=== PATIENT | female | born 1960 | race Caucasian/White ===

== ENCOUNTER 2020-03-12 16:13 | Inpatient (IN) | payer OTHER, SELFPAY ==
[2020-03-12] VITALS (8 sets, daily range): BP systolic 103–131; BP diastolic 37–76; PULSE 86–111; RESP 16–20; TEMP 36.7–37.3; O2SAT 96–100; BMI 62.1
--- NOTE | 2020-03-12 | CT_ITS ---
EXAMINATION: CT ABDOMEN AND PELVIS WITH CONTRAST CLINICAL INFORMATION: Left pain with black stool CT chest 01/18/[address] abdomen and pelvis 08/30/2015 COMPARISON: None TECHNIQUE: Multidetector volumetric images were obtained from the superior aspect of the liver through the pubic symphysis following administration 85 mL of Omnipaque 350 intravenous contrast. Sagittal and coronal reformatted images were obtained on the technologist's workstation. Oral contrast: No This CT examination was performed using dose optimization techniques as appropriate, variously including the following: *Automated exposure control *Adjustment of mA and/or kV according to patient size (this includes techniques or standardized protocols for targeted exams where dose is matched to indication/reason for exam; i.e. extremities or head) *Use of iterative reconstruction technique DLP: 976 mGy-cm FINDINGS: LUNG BASES: Bibasilar scarring is present. Moderate sized hiatal hernia is present. LIVER, GALLBLADDER, AND BILIARY TREE: The liver is normal in size, shape, and attenuation. No focal hepatic lesion or biliary ductal dilatation is present. At least one rim calcified 2 cm gallstone is present. No evidence of cholecystitis is seen. PANCREAS: Unremarkable. SPLEEN: Unremarkable. ADRENAL GLANDS: Unremarkable. KIDNEYS AND URETERS: The kidneys are normal in size, shape, and attenuation. No hydronephrosis, hydroureter, or calculi seen. A tiny 5 mm hypodensity is seen in the right kidney which probably represents a cyst. No perinephric stranding. BLADDER: Unremarkable. GASTROINTESTINAL TRACT: The small and large bowel are unremarkable. The appendix is none seen with certainty but there is no evidence of appendicitis. ABDOMINAL WALL: No significant hernia is appreciated. Tiny periumbilical hernia containing only fat is present. LYMPH NODES: No retroperitoneal lymphadenopathy. VASCULAR: Mild atherosclerotic changes without aneurysm PELVIC VISCERA: An anteverted uterus is present. An abnormal adnexal mass or free intraperitoneal fluid is not seen. Multiple phleboliths are present in the pelvis OSSEOUS STRUCTURES: Unremarkable. IMPRESSION: A cause for the left back pain is not seen. Incidental note made of probable gallstones and probable tiny right renal cyst.
--- NOTE | 2020-03-12 16:50 | ED.ABDPAIN ---
HPI - Abdominal Pain General Chief Complaint: GI Bleed Stated Complaint: VOMITING BLOOD Time Seen by Provider: 03/12/20 16:38 Source: patient Mode of arrival: wheelchair History of Present Illness HPI narrative: patient states for approximately 5 days has been vomiting diarrhea. Patient states that the dark maroon color. With lower left abdominal pain. No fevers no chills. States has had this several times in the past and has been transfused. Denies chest pain or shortness of breath. patient does admit that she has been weaker recently with dyspnea on exertion. Patient states about 5 days ago was taking a hot shower and may have passed out MD elicited complaint: abdominal pain Location: LUQ Severity: mild Quality: cramping Radiation: LUQ Exacerbating factors: nothing Related Data Home Medications Medication Instructions Recorded Confirmed cholecalciferol (vitamin D3) 1 cap PO BID 03/12/20 03/12/20 [Vitamin D3] docusate sodium 1 cap PO BEDTIME PRN 03/12/20 03/12/20 etanercept [Enbrel SureClick] 1 syringe SUBCUT QWEEK 03/12/20 03/12/20 ferrous sulfate 1 tab PO DAILY 03/12/20 03/12/20 fluoxetine 2 cap PO DAILY 03/12/20 03/12/20 hydroxychloroquine 1 tab PO DAILY 03/12/20 03/12/20 melatonin 1 tab PO BEDTIME 03/12/20 03/12/20 oxycodone 10 mg PO Q4-6H PRN 03/12/20 03/12/20 pantoprazole 1 tab PO BID 03/12/20 03/12/20 sennosides-docusate sodium 2 tab PO DAILY 03/12/20 03/12/20 [Senexon-S] Allergies Allergy/AdvReac Type Severity Reaction Status Date / Time ibuprofen [From MOTRIN] Allergy Unknown ULCERS Verified 03/12/20 19:51 naproxen [From NAPROSYN] Allergy Unknown ULCERS Verified 03/12/20 19:51 Review of Systems Review of Systems Constitutional : No Weight loss, No Fever, No Chills, No Night Sweats, No Fatigue, No Malaise ENT/Mouth : No Hearing loss, No Ear Pain, No Nasal Congestion, No Sinus Pain, No Hoarseness, No sore throat, No Rhinorrhea, No Swallowing Difficulty Eyes: No Eye Pain, No Swelling, No Redness, No Foreign Body, No Discharge, No Vision Changes Cardiovascular : No Chest Pain, No SOB, No Dyspnea on Exertion, No Orthopnea, No Edema, No Palpitations Respiratory : No Cough, No Sputum, No Wheezing, No Smoke Exposure, No Dyspnea Gastrointestinal : Positive Nausea, Positive Vomiting, positive Diarrhea, positive abdominal Pain, No Hematochezia, No Melena Genitourinary : no irregular bleeding, No Dysuria, No Urinary Frequency, No Hematuria, No Urinary Incontinence, No Urgency, No Flank Pain, No Urinary Flow Changes, No Hesitancy Musculoskeletal : No joint pain, No Myalgias, No Joint Swelling Skin : No Skin Lesions, No rash Neuro : No Weakness, No Numbness, No Paresthesias, No Loss of Consciousness, No Dizziness, No Headache Psych : No Anxiety/Panic, No Depression, No SI/HI/AH/VH, No Social Issues, Heme/Lymph: No Bruising, No Bleeding,No Lymphadenopathy Endocrine : No Polyuria, No Polydipsia, No Temperature Intolerance Physical Exam Vital Signs and I&O and Narrative: Vital Signs and I&O: Vital Signs Temp 98.2 F 03/12/20 21:16 Pulse 90 03/12/20 22:16 Resp 16 03/12/20 22:16 BP 103/55 L 03/12/20 22:16 Pulse Ox 100 03/12/20 22:16 Intake & Output 03/12/20 03/12/20 03/13/20 06:59 18:59 06:59 Intake Total 1000 / 1000 Balance 1000 / 1000 Weight 180 kg Intake: Intake, IV Amoun t 1000 / 1000 0.9 % Sodium C hloride 1,000 ml 1000 / 1000 @ 999 mls/hr I VCONT .Q1H1M [facility] Rx#:[id number] Body Mass Index 62.1 Appearance: Alert. Oriented X3. No acute distress. Eyes: Pupils equal, round and reactive to light. ENT: Pharynx normal. Neck: Normal inspection. Neck supple. CVS: Normal heart rate and rhythm. Pulses normal. Respiratory: No respiratory distress. Breath sounds normal. Abdomen: Soft and left lower quadrant tenderness. No rash no ecchymosis. Skin: Skin warm and dry. Normal skin color. Normal skin turgor. Extremities: No lower extremity edema. No lower extremity edema. Neuro: Oriented X 3. No motor deficit. No sensory deficit. Rectal exam: brown stool. Female nurse bedside for evaluation Course Course Hospital Course: I was called the lab for severe anemia. Discussed with patient need for transfusion. Patient does agree to transfusion and has had previous Reevaluation(s) Reevaluation #1: will place IV. CT scan abdomen pelvis laboratory work Time: 20:54 Reevaluation #2: patient resting comfortably will receive units of blood awaiting admission Reevaluation #3: multiple re-evaluations done by me while patient was in the emergency department MDM - Abdominal Pain MDM Narrative Medical decision making narrative: 59-year-old with reported history vomiting blood and black stools. In the emergency department without active bleeding. Severe anemia will need blood transfusion admission possible evaluation by Gastroenterology Differential Diagnosis Differential diagnosis: Likely abdominal pain, acute appendicitis, bowel perforation and diverticulitis Medical Records Attestation: I reviewed the patient's medical records. Lab Data Attestation: I reviewed the patient's lab results. Result diagrams: 03/12/20 17:19 03/12/20 17:18 Labs: Lab Results 03/12/20 03/12/20 03/12/20 Range/Units 17:08 17:18 17:19 WBC 6.7 (4.8-10.8) X10*3/uL RBC 2.28 L (4.20-5.50) X10*6/uL Hgb 4.2 L* (12.0-16.0) g/dl Hct 15.9 L* (37-47) % MCV 69.7 L (80-98) fL MCH 18.4 L (27.0-33.0) pg MCHC 26.4 L (31.0-35.0) g/dl RDW 19.7 H (11.0-16.0) % Plt Count 249 (160-400) X10*3/uL MPV 10.0 (9.4-12.3) fL Immature Gran % (Auto) 0.6 H (0.0-0.4) % Neut % (Auto) 57.1 (45-73) % Lymph % (Auto) 24.5 (20-40) % Lewis % (Auto) 13.7 H (2-11) % Eos % (Auto) 3.7 (0-4) % Baso % (Auto) 0.4 (0-2) % Neut # (Auto) 3.8 (2.0-8.3) X10*3/uL Lymph # (Auto) 1.7 (1.2-4.9) X10*3/uL Lewis # (Auto) 0.9 (0.1-1.2) X10*3/uL Eos # (Auto) 0.3 (0.0-0.4) X10*3/uL Baso # (Auto) 0.0 (0.0-0.2) X10*3/uL Abs Immat Gran (auto) 0.04 H (0.00-0.03) X10*3/uL Absolute Nucleated RBC 0.000 (0.0-0.012) X10*3/uL Nucleated RBC % (auto) 0.0 (0.0-0.2) /100WBC Sodium 135 (135-145) mmol/L Potassium 4.3 (3.3-5.1) mmol/l Chloride 102 (96-108) mmol/L Carbon Dioxide 28 (22-29) mmol/L Anion Gap 9 L (12-20) BUN 15 (9-16) mg/dL Creatinine 0.49 L (0.5-1.4) mg/dL Estim Creat Clear Calc 217.9 Estimated GFR > 60 Random Glucose 109 (60-115) mg/dL Calcium 8.6 (8.4-10.2) mg/dL Total Bilirubin 0.3 (0.0-1.0) mg/dL Direct Bilirubin 0.2 (0.0-0.5) mg/dL AST 19 (5-31) U/L ALT 11 (0-31) U/L Alkaline Phosphatase 106 (39-117) U/L Total Protein 6.6 (6.5-8.0) g/dL Albumin 3.2 L (3.5-5.0) g/dL Lipase 54 (8-78) U/L Stool Collect Date 03/12/20 Stool Occult Blood POS (NEG) Blood Type Antibody Screen Antibody Identification Crossmatch 03/12/20 Range/Units 18:48 WBC (4.8-10.8) X10*3/uL RBC (4.20-5.50) X10*6/uL Hgb (12.0-16.0) g/dl Hct (37-47) % MCV (80-98) fL MCH (27.0-33.0) pg MCHC (31.0-35.0) g/dl RDW (11.0-16.0) % Plt Count (160-400) X10*3/uL MPV (9.4-12.3) fL Immature Gran % (Auto) (0.0-0.4) % Neut % (Auto) (45-73) % Lymph % (Auto) (20-40) % Lewis % (Auto) (2-11) % Eos % (Auto) (0-4) % Baso % (Auto) (0-2) % Neut # (Auto) (2.0-8.3) X10*3/uL Lymph # (Auto) (1.2-4.9) X10*3/uL Lewis # (Auto) (0.1-1.2) X10*3/uL Eos # (Auto) (0.0-0.4) X10*3/uL Baso # (Auto) (0.0-0.2) X10*3/uL Abs Immat Gran (auto) (0.00-0.03) X10*3/uL Absolute Nucleated RBC (0.0-0.012) X10*3/uL Nucleated RBC % (auto) (0.0-0.2) /100WBC Sodium (135-145) mmol/L Potassium (3.3-5.1) mmol/l Chloride (96-108) mmol/L Carbon Dioxide (22-29) mmol/L Anion Gap (12-20) BUN (9-16) mg/dL Creatinine (0.5-1.4) mg/dL Estim Creat Clear Calc Estimated GFR Random Glucose (60-115) mg/dL Calcium (8.4-10.2) mg/dL Total Bilirubin (0.0-1.0) mg/dL Direct Bilirubin (0.0-0.5) mg/dL AST (5-31) U/L ALT (0-31) U/L Alkaline Phosphatase (39-117) U/L Total Protein (6.5-8.0) g/dL Albumin (3.5-5.0) g/dL Lipase (8-78) U/L Stool Collect Date Stool Occult Blood (NEG) Blood Type O Positive Antibody Screen POSITIVE Antibody Identification Anti-K Crossmatch See Detail Critical Care Time Critical Care Time Critical Care Time: Yes Total Critical Care Time: 35 Attestation: patient has severe anemia. I attest to the critical time Discharge Plan Discharge Clinical Impression: Severe anemia, Melena Prescriptions: No Action pantoprazole 40 mg tablet,delayed release (DR/EC) 1 tab PO BID RF: 0 ferrous sulfate 325 mg (65 mg iron) tablet 1 tab PO DAILY RF: 0 docusate sodium 100 mg capsule 1 cap PO BEDTIME PRN (Reason: Constipation) RF: 0 hydroxychloroquine 200 mg tablet 1 tab PO DAILY RF: 0 fluoxetine 20 mg capsule 2 cap PO DAILY RF: 0 Enbrel SureClick 50 mg/mL (1 mL) pen injector 1 syringe subcut QWEEK RF: 0 oxycodone 10 mg tablet 10 mg PO Q4-6H PRN (Reason: Pain, Moderate) RF: 0 melatonin 5 mg tablet 1 tab PO BEDTIME RF: 0 cholecalciferol (vitamin D3) [Vitamin D3] 50 mcg (2,000 unit) capsule 1 cap PO BID RF: 0 sennosides-docusate sodium [Senexon-S] 8.6-50 mg tablet 2 tab PO DAILY RF: 0 PMFSH Past Medical History Attestation statement: The following information was validated with the patient. Source: old records reviewed Medical History Anemia Anxiety Arthritis Depression Hypothyroidism Pancreatitis Ulcer Social History Social History Alcohol intake: never Smoking Status: Never smoker Smoked in Last 30 Days: No Use of substances other than those prescribed or required for medical reasons: No Advance Directives: No Advance Directives Information Provided: No
[2020-03-12] MEDS: Pantoprazole Sodium 40 MG/10 ML VIAL IVPUSH (17:26)
[2020-03-12] MEDS: 0.9 % Sodium Chloride 1,000 ML 999 ML IVCONT (17:26)
[2020-03-12] MEDS: ondansetron HCL 4 MG/2 ML VIAL IVPUSH (17:26)
[2020-03-12 17:29] LABS: MANUAL DIFF FLAG NO
[2020-03-12 17:33] LABS: OBS1 POS (NEG)
[2020-03-12 17:34] LABS: OBS Int Ctl Valid YES
[2020-03-12 17:43] LABS: Basophils Percent Auto 0.4 % (0-2); Eosinophils Absolute Auto 0.3 X10*3/uL (0.0-0.4); Eosinophils Percent Auto 3.7 % (0-4); Imm Gran Abs Auto 0.04 X10*3/uL (0.00-0.03); Imm Gran Pct Auto 0.6 % (0.0-0.4); Lymphocytes Absolute Auto 1.7 X10*3/uL (1.2-4.9); Lymphocytes Percent Auto 24.5 % (20-40); Mean Corpuscular HGB Conc 26.4 g/dl (31.0-35.0); Mean Corpuscular Hemoglobin 18.4 pg (27.0-33.0); Mean Corpuscular Volume 69.7 fL (80-98); Monocytes Absolute Auto 0.9 X10*3/uL (0.1-1.2); Monocytes Percent Auto 13.7 % (2-11); Neutrophils Absolute Auto 3.8 X10*3/uL (2.0-8.3); Neutrophils Percent Auto 57.1 % (45-73); Platelet Count 249 X10*3/uL (160-400); Red Blood Count 2.28 X10*6/uL (4.20-5.50); Red Cell Distribution Width 19.7 % (11.0-16.0); White Blood Count 6.7 X10*3/uL (4.8-10.8)
[2020-03-12 17:51] LABS: Hemoglobin 4.2 g/dl (12.0-16.0)
[2020-03-12 17:52] LABS: Hematocrit 15.9 % (37-47)
[2020-03-12 18:10] LABS: Alanine Aminotransferase 11 U/L (0-31); Albumin Level 3.2 g/dL (3.5-5.0); Alkaline Phosphatase 106 U/L (39-117); Anion Gap 9 (12-20); Aspartate Amino Transferase 19 U/L (5-31); Bilirubin Direct 0.2 mg/dL (0.0-0.5); Bilirubin Total 0.3 mg/dL (0.0-1.0); Blood Urea Nitrogen 15 mg/dL (9-16); Calcium 8.6 mg/dL (8.4-10.2); Carbon Dioxide 28 mmol/L (22-29); Chloride 102 mmol/L (96-108); Creatinine Clr Calc Pharmacy 217.9; Estimated Glomerular Filt Rate > 60; Glucose Random 109 mg/dL (60-115); Lipase 54 U/L (8-78); Potassium 4.3 mmol/l (3.3-5.1); Sodium 135 mmol/L (135-145); Total Protein 6.6 g/dL (6.5-8.0)
--- NOTE | 2020-03-12 18:56 | PC.NURSE ---
REPORT TAKEN FROM [facility]. FIRST CONTACT WITH PT. RESTING IN BED SKIN PALE WARM AND DRY, RESPIRATIONS EVEN UNLABORED. TYPE AND SCREEN COMPLETED, AWAITING BLOOD TRANSFUSION, AWARE OF PLAN OF CARE.
[2020-03-12] MEDS: iohexoL 350 MG/ML 100 ML INFUS..BTL IV (19:26)
--- NOTE | 2020-03-12 20:38 | PC.NURSE ---
MEDICATIONS RECONCILED, PT AWAITING BLOOD TRANSFUSION.RESTING IN BED ON PHONE WITH FAMILY MEMBER, OFFERS NO COMPLAINTS AT THIS TIME. VSS. NO CHANGE IN PHYSICAL ASSESSMENT. REQUESTING FOOD. NOTIFIED.
--- NOTE | 2020-03-12 21:16 | PC.NURSE ---
BLOOD PRODUCTS VERIFIED WITH SUSI MO RN AND KARLA May RN BUT UNABLE TO DOCUMENT APPROPRIATELY IN TAR DUE TO TECHNICAL ISSUES. CONSENT IN CHART,VSS, LSCTA UPON INITIATION OF TRANSFUSION.
--- NOTE | 2020-03-12 21:31 | PC.NURSE ---
NO S/S TRANSFUSION REACTION. VSS. LSCTA. PT COMPLAINING OF PAIN TO RIGHT ELBOW. PILLOW PROVIDED AND ARM REPOSITIONED. IV SITE ASSESSED FOR INFILTRATION. FLUSHING WITHOUT DIFFICULTY, SURROUNDING SKIN WNL WITH EXCEPTION OF TENDER TO INSERTION SITE.
--- NOTE | 2020-03-12 21:35 | PC.NURSE ---
PT AGAIN REPORTING RIGHT ELBOW PAIN. IV ACCESS ASSESSED BY THIS RN WELL 2 OTHERS AND MD AND FOUND TO BE WNL, FLUSHING WITHOUT DIFFICULTY. PT REPORTS FIBROMYALGIA AND SEVERE RA. MD BLACK AWARE.
--- NOTE | 2020-03-12 22:15 | PC.NURSE ---
BLOOD TRANSFUSION CONTINUES TO TRANSFUSE WITHOUT DIFFICULTY OR S/S TRANSFUSION REACTION. VSS. LSCTA. HOSPITALIST AT BEDSIDE FOR ADMISSION.
--- NOTE | 2020-03-12 22:26 | PC.NURSE ---
PT REPORTING PAIN TO RIGHT ELBOW AGAIN- REASSESSED IV ACCESS WELL ASSESSED BY 2 OTHER RNS. FOUND TO BE WNL. PT STATES SHE HAS CHRONIC FIBROMYALGIA AND SEVERE RA. MD BLACK AWARE.
--- NOTE | 2020-03-12 22:28 | PC.NURSE ---
BLOOD TRANSFUSION CONTINUES- IV ACCESS PATENT SURROUNGING TISSUE WNL.
--- NOTE | 2020-03-12 22:38 | PM.IMHP ---
History of Present Illness Date of Service: 03/12/20 Chief Complaint: Dizziness 59 y/o female with PMHx of Asthma, insomnia, constipation, Hypothyroidism, RA, Depression, NSTEMI and GI bleed/Anemia who presented from home due to Dizziness. Per history provided by the patient for the past 1 week has been having dizziness on and off which has been associated with one episode of pre-syncope last saturday and black stools which has been present for several months now. Patient denies any chest pain, SOB, nausea, vomiting or diarrhea. Patient reports last EGD/Colonoscopy was done 5 years ago and told it was normal . On presentation to the ED patient is found to have a hgb of 4.2, Patient gives no complaints currently. ROS as above otherwise negative. Physical exam unremarkable. PMHX: Asthma, insomnia, constipation, Hypothyroidism, RA, Depression, NSTEMI and GI bleed/Anemia PSx: none Toxic habits: No hx of alcohol abuse, smoking or IVDA Review of Systems Review of Systems: Yes all other systems are reviewed and are negative Neurologic: Comments: pre syncope, dizziness PMFSH Medical History Anemia Anxiety Arthritis Depression Hypothyroidism Pancreatitis Ulcer Cognitive capacity: AAOx3 Functional capacity: independent ambulation Family history: reviewed and not pertinent Social History Alcohol intake: never Smoking Status: Never smoker Smoked in Last 30 Days: No Use of substances other than those prescribed or required for medical reasons: No Advance Directives: No Advance Directives Information Provided: No Meds Allergies Allergy/AdvReac Type Severity Reaction Status Date / Time ibuprofen [From MOTRIN] Allergy Unknown ULCERS Verified 03/12/20 19:51 naproxen [From NAPROSYN] Allergy Unknown ULCERS Verified 03/12/20 19:51 Home Medications Medication Instructions Recorded Confirmed Type cholecalciferol (vitamin D3) 1 cap PO BID 03/12/20 03/12/20 History [Vitamin D3] docusate sodium 1 cap PO BEDTIME PRN 03/12/20 03/12/20 History etanercept [Enbrel SureClick] 1 syringe SUBCUT QWEEK 03/12/20 03/12/20 History ferrous sulfate 1 tab PO DAILY 03/12/20 03/12/20 History fluoxetine 2 cap PO DAILY 03/12/20 03/12/20 History hydroxychloroquine 1 tab PO DAILY 03/12/20 03/12/20 History melatonin 1 tab PO BEDTIME 03/12/20 03/12/20 History oxycodone 10 mg PO Q4-6H PRN 03/12/20 03/12/20 History pantoprazole 1 tab PO BID 03/12/20 03/12/20 History sennosides-docusate sodium 2 tab PO DAILY 03/12/20 03/12/20 History [Senexon-S] Physical Exam Vital Signs and Narrative: Vital Signs: Last Vital Signs Temp 98.2 F 03/12/20 21:16 Pulse 90 03/12/20 22:16 Resp 16 03/12/20 22:16 BP 103/55 L 03/12/20 22:16 Pulse Ox 100 03/12/20 22:16 Body Mass Index 62.1 Results Labs Labs: Laboratory Tests 03/12/20 03/12/20 03/12/20 17:08 17:18 17:19 WBC 6.7 RBC 2.28 L Hgb 4.2 L* Hct 15.9 L* MCV 69.7 L MCH 18.4 L MCHC 26.4 L RDW 19.7 H Plt Count 249 MPV 10.0 Immature Gran % (Auto) 0.6 H Neut % (Auto) 57.1 Lymph % (Auto) 24.5 [place] % (Auto) 13.7 H Eos % (Auto) 3.7 Baso % (Auto) 0.4 Neut # (Auto) 3.8 Lymph # (Auto) 1.7 [place] # (Auto) 0.9 Eos # (Auto) 0.3 Baso # (Auto) 0.0 Abs Immat Gran (auto) 0.04 H Absolute Nucleated RBC 0.000 Nucleated RBC % (auto) 0.0 Sodium 135 Potassium 4.3 Chloride 102 Carbon Dioxide 28 Anion Gap 9 L BUN 15 Creatinine 0.49 L Estim Creat Clear Calc 217.9 Estimated GFR > 60 Random Glucose 109 Calcium 8.6 Total Bilirubin 0.3 Direct Bilirubin 0.2 AST 19 ALT 11 Alkaline Phosphatase 106 Total Protein 6.6 Albumin 3.2 L Lipase 54 Stool Collect Date 03/12/20 Stool Occult Blood POS Blood Type Antibody Screen Antibody Identification Crossmatch 03/12/20 18:48 WBC RBC Hgb Hct MCV MCH MCHC RDW Plt Count MPV Immature Gran % (Auto) Neut % (Auto) Lymph % (Auto) [place] % (Auto) Eos % (Auto) Baso % (Auto) Neut # (Auto) Lymph # (Auto) [place] # (Auto) Eos # (Auto) Baso # (Auto) Abs Immat Gran (auto) Absolute Nucleated RBC Nucleated RBC % (auto) Sodium Potassium Chloride Carbon Dioxide Anion Gap BUN Creatinine Estim Creat Clear Calc Estimated GFR Random Glucose Calcium Total Bilirubin Direct Bilirubin AST ALT Alkaline Phosphatase Total Protein Albumin Lipase Stool Collect Date Stool Occult Blood Blood Type O Positive Antibody Screen POSITIVE Antibody Identification Anti-K Crossmatch See Detail Assessment and Plan (1) Severe anemia: Status: Acute Hgb of 4.2 FBOT pending type screen and 3 units of PRBC ordered per ED. First unit running at present Follow up repeat CBC once transfusion is finished IMC for now on cardiac tech for close monitoring GI consult in the am for possible EGD/Colonoscopy
--- NOTE | 2020-03-12 22:52 | PC.NURSE ---
BLOOD TRANSFUSION COMPLETED. VSS. NO TRANSFUSION REACTION NOTED.
--- NOTE | 2020-03-12 23:35 | PC.NURSE ---
RN to RN with [facility] on med surg. Pt able to be transfered.
[2020-03-13] VITALS (21 sets, daily range): BP systolic 113–146; BP diastolic 60–87; PULSE 65–110; RESP 16–28; TEMP 36.3–37.1; O2SAT 91–100
[2020-03-13] MEDS: 0.9 % Sodium Chloride Flush 3 ML SYRINGE 2 ML IVFLUSH ×3 (00:57→19:57)
[2020-03-13] MEDS: Omeprazole 20 MG CAPSULE.DR PO (05:52)
[2020-03-13] MEDS: Cholecalciferol (Vitamin D3) 25 MCG TABLET 50 MCG PO ×2 (08:06→21:34)
[2020-03-13] MEDS: FLUoxetine HCl 20 MG CAPSULE 40 MG PO (08:06)
[2020-03-13] MEDS: Hydroxychloroquine Sulfate 200 MG TABLET PO (08:06)
[2020-03-13 08:20] LABS: MANUAL DIFF FLAG NO
[2020-03-13 08:36] LABS: Basophils Percent Auto 0.4 % (0-2); Eosinophils Absolute Auto 0.3 X10*3/uL (0.0-0.4); Eosinophils Percent Auto 3.8 % (0-4); Hematocrit 22.6 % (37-47); Imm Gran Abs Auto 0.03 X10*3/uL (0.00-0.03); Imm Gran Pct Auto 0.4 % (0.0-0.4); Lymphocytes Absolute Auto 0.8 X10*3/uL (1.2-4.9); Lymphocytes Percent Auto 10.7 % (20-40); Mean Corpuscular HGB Conc 29.2 g/dl (31.0-35.0); Mean Corpuscular Hemoglobin 22.4 pg (27.0-33.0); Mean Corpuscular Volume 76.6 fL (80-98); Mean Platelet Volume 9.8 fL (9.4-12.3); Monocytes Percent Auto 13.6 % (2-11); Neutrophils Absolute Auto 5.2 X10*3/uL (2.0-8.3); Neutrophils Percent Auto 71.1 % (45-73); Platelet Count 194 X10*3/uL (160-400); Red Blood Count 2.95 X10*6/uL (4.20-5.50); Red Cell Distribution Width 21.3 % (11.0-16.0); White Blood Count 7.4 X10*3/uL (4.8-10.8)
[2020-03-13 08:49] LABS: Hemoglobin 6.6 g/dl (12.0-16.0)
[2020-03-13 09:04] LABS: Blood Urea Nitrogen 13 mg/dL (9-16); Creatinine Clr Calc Pharmacy 227.1; Estimated Glomerular Filt Rate > 60; Glucose Random 112 mg/dL (60-115)
[2020-03-13 09:18] LABS: Thyroid Stimulating Hormone < 0.01 mIU/mL (0.32-4.0)
[2020-03-13 09:19] LABS: Anion Gap 12 (12-20); Calcium 7.9 mg/dL (8.4-10.2); Carbon Dioxide 25 mmol/L (22-29); Chloride 105 mmol/L (96-108); Potassium 4.2 mmol/l (3.3-5.1); Sodium 138 mmol/L (135-145)
[2020-03-13] MEDS: Pantoprazole Sodium 40 MG/10 ML VIAL IVPUSH (09:58)
--- NOTE | 2020-03-13 10:22 | HO.PM.IMPN ---
Subjective Subjective Date of Service: 03/13/20 Interval History: Feeling anxious Cardiovascular Cardiovascular: Reports no additional cardiovascular complaints Respiratory Respiratory: Reports no additional respiratory complaints Physical Exam Vital Signs and I&O and Narrative: Vital Signs and I&O: Vital Signs Temp 98.2 F 03/13/20 10:07 Pulse 88 03/13/20 10:07 Resp 20 03/13/20 10:07 BP 133/66 03/13/20 10:07 Pulse Ox 97 03/13/20 08:00 Intake & Output 03/12/20 03/13/20 03/13/20 18:59 06:59 18:59 Intake Total 1000 / 2050 1050 / 2050 0 / 0 Output Total 600 / 600 200 / 200 Balance 1000 / 1450 450 / 1450 -200 / -200 Urine Output (Aver age ml/kg/hr) 0.28 0.09 Weight 180 kg Intake: Intake (Blood Pr oduct) Amount 1050 / 1050 0 / 0 Red Blood Cell s (E0382) Unit 350 / 350 [id number] Red Blood Cell s (E0382) Unit 350 / 350 [id number] Red Blood Cell s (E0382) Unit 350 / 350 [id number] Red Blood Cell s (E0382) Unit 0 / 0 [id number] Intake, IV Amoun t 1000 / 1000 0.9 % Sodium C hloride 1,000 ml 1000 / 1000 @ 999 mls/hr I VCONT .Q1H1M [facility] Rx#:[id number] Output: Output, Urine Am ount 600 / 600 200 / 200 Other: NPO Yes Stool Bedpan Body Mass Index 62.1 Const: General: cooperative and no acute distress Orientation/consciousness: oriented to person, oriented to place and oriented to time Resp: Auscultation: clear to auscultation bilaterally Cardio: Rhythm: abnormal rhythm ( rapid) GI: Palpation (GI): nontender Neuro: General: oriented to person, oriented to place and oriented to time Psych: Mental Status: mental status grossly normal Objective Data Current Medications Generic Name Dose Route Start Last Admin Trade Name Freq PRN Reason Stop Dose Admin Docusate Sodium 100 mg 03/12/20 23:57 Docusate Sodium 100 Mg Capsule PO BEDTIME PRN Constipation Fluoxetine HCl 40 mg 03/13/20 09:00 03/13/20 08:06 Fluoxetine Hcl 20 Mg Capsule PO 40 mg DAILY HAILE Administration Hydroxychloroquine Sulfate 200 mg 03/13/20 09:00 03/13/20 08:06 Hydroxychloroquine Sulfate 200 Mg Tablet PO 200 mg DAILY HAILE Administration Pantoprazole Sodium 40 mg 03/13/20 08:07 03/13/20 09:58 Pantoprazole Sodium 40 Mg/10 Ml Vial IVPUSH 40 mg BID@0630,1630 HAILE Administration Senna/Docusate Sodium 2 tab 03/13/20 09:00 03/13/20 08:07 Sennosides/Docusate Sodium Tablet PO Not Given DAILY HAILE Sodium Chloride 2 ml 03/13/20 00:00 03/13/20 08:06 0.9 % Sodium Chloride Flush 3 Ml Syringe IVFLUSH 2 ml QSHIFT HAILE Administration Vitamin D 50 mcg 03/13/20 09:00 03/13/20 08:06 Cholecalciferol (Vitamin D3) 25 Mcg Tablet PO 50 mcg BID HAILE Administration Labs CBC & Chem 7: 03/13/20 07:57 03/13/20 07:57 Labs: Laboratory Results - last 24 hr 03/12/20 03/12/20 03/12/20 17:08 17:18 17:19 MCV 69.7 L MCH 18.4 L MCHC 26.4 L RDW 19.7 H Plt Count 249 MPV 10.0 Immature Gran % (Auto) 0.6 H Neut % (Auto) 57.1 Lymph % (Auto) 24.5 [place] % (Auto) 13.7 H Eos % (Auto) 3.7 Baso % (Auto) 0.4 Neut # (Auto) 3.8 Lymph # (Auto) 1.7 [place] # (Auto) 0.9 Eos # (Auto) 0.3 Baso # (Auto) 0.0 Abs Immat Gran (auto) 0.04 H Absolute Nucleated RBC 0.000 Nucleated RBC % (auto) 0.0 Anion Gap 9 L Estim Creat Clear Calc 217.9 Estimated GFR > 60 Random Glucose 109 Calcium 8.6 Total Bilirubin 0.3 Direct Bilirubin 0.2 AST 19 ALT 11 Alkaline Phosphatase 106 Total Protein 6.6 Albumin 3.2 L Lipase 54 TSH Stool Collect Date 03/12/20 Stool Occult Blood POS Blood Type Antibody Screen Antibody Identification Crossmatch 03/12/20 03/13/2020 18:48 07:57 07:57 MCV 76.6 L D MCH 22.4 L MCHC 29.2 L RDW 21.3 H Plt Count 194 MPV 9.8 Immature Gran % (Auto) 0.4 Neut % (Auto) 71.1 Lymph % (Auto) 10.7 L [place] % (Auto) 13.6 H Eos % (Auto) 3.8 Baso % (Auto) 0.4 Neut # (Auto) 5.2 Lymph # (Auto) 0.8 L [place] # (Auto) 1.0 Eos # (Auto) 0.3 Baso # (Auto) 0.0 Abs Immat Gran (auto) 0.03 Absolute Nucleated RBC 0.000 Nucleated RBC % (auto) 0.0 Anion Gap 12 Estim Creat Clear Calc 227.1 Estimated GFR > 60 Random Glucose 112 Calcium 7.9 L Total Bilirubin Direct Bilirubin AST ALT Alkaline Phosphatase Total Protein Albumin Lipase TSH < 0.01 L Stool Collect Date Stool Occult Blood Blood Type O Positive Antibody Screen POSITIVE Antibody Identification Anti-K Crossmatch See Detail Assessment and Plan (1) Acute blood loss anemia: Status: Acute (2) Thyroiditis: Status: Acute (3) Rheumatoid arthritis: Status: Acute Assessment and Plan: 59-year-old female presented with hematemesis, melena, found to have severe anemia with hemoglobin of 4.2 acute blood loss anemia IV Protonix 40 mg b.i.d. status post 3 units PRBC, hemoglobin improved from 4.2-6.6, will transfuse 1 more unit. Follow-up GI, plan for EGD later today monitor CBC thyroiditis sinus tachycardia, patient reports weight loss, patient did not show up for her endocrinology appointment 2 months ago, plan to follow up outpatient. Once no longer bleeding will start on beta-sidra rheumatoid arthritis Plaquenil
--- NOTE | 2020-03-13 10:31 | PM.GICN ---
History of Present Illness Data of Consult Service Date: 03/13/20 Requesting physician: Josr Fuentes Primary Care Provider: Jenae Khan MD [facility] Reason for consult: Upper GI bleed 59-year-old [place]-speaking female with hypertension, rheumatoid arthritis, thyroiditis, obesity and noncompliance to medical follow-up. Patient was seen at [facility] ED yesterday with history of hematemesis since 03/09/20. Patient was admitted and started on IV proton a 40 mg twice daily. She was transfused 3 units of packed red blood cells overnight with improvement in hemoglobin from 4.6-6.6. (H&H was 8 and 29% on 01/20/20). She is being transfused 4th unit of packed RBCs at present. Nursing staff reports that she has not had any nausea, vomiting, hematemesis or melena overnight. Per patient's sister - pt has required blood transfusions for anemia x 4 over the past few yrs. IMAGING STUDIES: as noted below ENDOSCOPIC STUDIES: 2016 EGD was performed by Dr Royal for UGIB and showed esophageal candidiasis and non-bleeding gastric erosions attributed to NSAID use. Pt reports having a colonoscopy at age 54 yrs. Patient complains of epigastric pain for the past week followed by hematemesis consisting of coffee ground emesis since 4 days. She notes black stools for the past several months - likely related to use of oral iron. She reports having dizziness on and off which has been associated with one episode of pre-syncope last saturday and black stools which has been present for several months. She complains of decreased appetite with weight loss of 15 lb over the past 6-8 weeks. Patient denies major cardiac or pulmonary problems, She admits to a history of sleep apnea and is not on CPAP at present. Denies problems with anesthesia in the past. Denies being on chronic anticoagulation. Patient denies known family history of colon polyps, colon cancer or other GI malignancies. PAST EGD/COLONOSCOPY: as above Review of Systems Constitutional: Constitutional: Reports fatigue, Denies fever(s) and Reports weight loss Eyes: Eyes: Denies eye discharge and Denies irritation Cardiovascular: Cardiovascular: Reports Epigastric Pain and Reports lightheadedness Respiratory: Respiratory: Reports cough (Intermittent dry cough) Gastrointestinal: Gastrointestinal: Reports abdominal pain, Reports melena, Reports coffee ground emesis and Reports constipation Genitourinary: Genitourinary: Reports no additional female genitourinary complaints Musculoskeletal: Musculoskeletal: Reports myalgias and Reports arthralgias Psychiatric: Psychiatric: Reports anxiety and Reports depression Endocrine: Endocrine: Reports fatigue PMF Past Medical History Medical History Depression Hypertension Hypothyroidism Obesity RABIA (obstructive sleep apnea) Thyroiditis Ulcer Functional capacity: independent ambulation Family History Family History (Updated 03/13/20 @ 13:28 by Dae Che MD) Other Cirrhosis Pertinent family history: Patient's Mom had cirrhosis and because of [place] in [place]. 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 [place] Meds Allergies Allergy/AdvReac Type Severity Reaction Status Date / Time ibuprofen [From MOTRIN] Allergy Unknown ULCERS Verified 03/12/20 19:51 naproxen [From NAPROSYN] Allergy Unknown ULCERS Verified 03/12/20 19:51 Home Medications Medication Instructions Recorded Confirmed Type Enbrel SureClick 1 syringe SUBCUT QWEEK 03/12/20 03/12/20 History cholecalciferol (vitamin D3) 1 cap PO BID 03/12/20 03/12/20 History [Vitamin D3] docusate sodium 1 cap PO BEDTIME PRN 03/12/20 03/12/20 History fluoxetine 2 cap PO DAILY 03/12/20 03/12/20 History hydroxychloroquine 1 tab PO DAILY 03/12/20 03/12/20 History melatonin 1 tab PO BEDTIME 03/12/20 03/12/20 History oxycodone 10 mg PO Q4-6H PRN 03/12/20 03/12/20 History pantoprazole 1 tab PO BID 03/12/20 03/12/20 History sennosides-docusate sodium 2 tab PO DAILY 03/12/20 03/12/20 History [Senexon-S] Physical Exam Vital Signs and I&O and Narrative: Vital Signs and I&O: Vital Signs Temp 98 F 03/13/20 10:22 Pulse 90 03/13/20 10:22 Resp 20 03/13/20 10:22 BP 117/65 03/13/20 10:22 Pulse Ox 97 03/13/20 08:00 Intake & Output 03/12/20 03/13/20 03/13/20 18:59 06:59 18:59 Intake Total 1000 / 2050 1050 / 2050 0 / 0 Output Total 600 / 600 200 / 200 Balance 1000 / 1450 450 / 1450 -200 / -200 Urine Output (Aver age ml/kg/hr) 0.28 0.09 Weight 396 lb 13.313 oz Intake: Intake (Blood Pr oduct) Amount 1050 / 1050 0 / 0 Red Blood Cell s (E0382) Unit 350 / 350 [id number] Red Blood Cell s (E0382) Unit 350 / 350 [id number] Red Blood Cell s (E0382) Unit 350 / 350 [id number] Red Blood Cell s (E0382) Unit 0 / 0 [id number] Intake, IV Amoun t 1000 / 1000 0.9 % Sodium C hloride 1,000 ml 1000 / 1000 @ 999 mls/hr I VCONT .Q1H1M [facility] Rx#:[id number] Output: Output, Urine Am ount 600 / 600 200 / 200 Other: NPO Yes Stool Bedpan Body Mass Index 62.1 Const: General: tired appearing Nutritional Appearance: obese Orientation/consciousness: patient oriented x3 Limitations: language barrier ([place] speaking and understands some Danish) Eyes: General: appearance normal, both eyes and all related structures Pupils: Equal, round and reactive pupils present Neck: Neck: Yes normal visual inspection Chest: Chest palpation & inspection: normal inspection of the chest Resp: Effort & Inspection: normal respiratory effort Auscultation: clear to auscultation bilaterally Cardio: Rate: regular rate Rhythm: regular rhythm Heart sounds: S1 normal heart sound present, S2 normal heart sound present and no murmurs GI: Inspection: Yes normal to inspection Palpation (GI): Soft to palpation, Tenderness to palpation present (GI) in the epigastrum and No hepatosplenomegaly present Auscultation: normal bowel sounds Skin: General skin exam: no rashes or lesions noted Neuro: General: patient oriented x3 Cranial nerves: Yes Equal, round and reactive pupils present Extrem: Right lower extremity: no cyanosis and no edema Left lower extremity: no cyanosis and no edema Psych: Affect: Labile affect present and Anxious affect present Attitude: cooperative Results Labs CBC & Chem 7: 03/20/20 04:56 03/21/20 05:59 Labs: Short CBC 03/12/20 03/13/20 Range/Units 17:19 07:57 WBC 6.7 7.4 (4.8-10.8) X10*3/uL Hgb 4.2 L* 6.6 L* D (12.0-16.0) g/dl Hct 15.9 L* 22.6 L D (37-47) % Plt Count 249 194 (160-400) X10*3/uL BMP 03/12/20 03/13/20 17:18 07:57 Sodium 135 138 Potassium 4.3 4.2 Chloride 102 105 Carbon Dioxide 28 25 BUN 15 13 Creatinine 0.49 L 0.47 L Calcium 8.6 7.9 L Liver Function 03/12/20 Range/Units 17:18 Total Bilirubin 0.3 (0.0-1.0) mg/dL Direct Bilirubin 0.2 (0.0-0.5) mg/dL AST 19 (5-31) U/L ALT 11 (0-31) U/L Alkaline Phosphatase 106 (39-117) U/L Albumin 3.2 L (3.5-5.0) g/dL Assessment and Plan (1) Acute blood loss anemia: Status: Resolved (2) Melena: Status: Resolved 59-year-old [place]-speaking female with hypertension, rheumatoid arthritis, thyroiditis, obesity and noncompliance to medical follow-up admitted with the hematemesis and melena with severe anemia and a pre-syncopal episode last night. She most likely has upper GI bleed related to peptic ulcer disease, erosive esophagitis or Priyanka-Mancini tear. Patient has history of upper GI bleeding in 2016 and was detected to have gastric erosions on EGD. RECCOMENDATIONS: 1. Continue IV PPI. 2. Check Vitamin B12 and iron studies. 3. Proceed with upper endoscopy today for further evaluation. Procedure and potential complications including bleeding, perforation, drug reaction, aspiration was discussed with the patient with the help of a educational sign language interpreter. Patient is agreeable to having an EGD done today.
--- NOTE | 2020-03-13 11:37 | HO.ANESPROP2 ---
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 [place] Allergies Allergy/AdvReac Type Severity Reaction Status Date / Time ibuprofen [From MOTRIN] Allergy Unknown ULCERS Verified 03/12/20 19:51 naproxen [From NAPROSYN] Allergy Unknown ULCERS Verified 03/12/20 19:51 Home Medications Medication Instructions Recorded Confirmed Type cholecalciferol (vitamin D3) 1 cap PO BID 03/12/20 03/12/20 History [Vitamin D3] docusate sodium 1 cap PO BEDTIME PRN 03/12/20 03/12/20 History etanercept [Enbrel SureClick] 1 syringe SUBCUT QWEEK 03/12/20 03/12/20 History ferrous sulfate 1 tab PO DAILY 03/12/20 03/12/20 History fluoxetine 2 cap PO DAILY 03/12/20 03/12/20 History hydroxychloroquine 1 tab PO DAILY 03/12/20 03/12/20 History melatonin 1 tab PO BEDTIME 03/12/20 03/12/20 History oxycodone 10 mg PO Q4-6H PRN 03/12/20 03/12/20 History pantoprazole 1 tab PO BID 03/12/20 03/12/20 History sennosides-docusate sodium 2 tab PO DAILY 03/12/20 03/12/20 History [Senexon-S] Exam Exam Date and Time: March 13, 2020 1137 Height,Weight and Vital Signs: Height 5 ft 7 in Weight 180 kg Last Vital Signs Temp 98 F 03/13/20 10:22 Pulse 90 03/13/20 10:22 Resp 20 03/13/20 10:22 BP 117/65 03/13/20 10:22 Pulse Ox 97 03/13/20 08:00 Pertinent Lab Results Pertinent Lab Results: Laboratory Tests 03/12/20 03/12/20 03/12/20 17:08 17:18 17:19 WBC 6.7 RBC 2.28 L Hgb 4.2 L* Hct 15.9 L* MCV 69.7 L MCH 18.4 L MCHC 26.4 L RDW 19.7 H Plt Count 249 MPV 10.0 Immature Gran % (Auto) 0.6 H Neut % (Auto) 57.1 Lymph % (Auto) 24.5 [place] % (Auto) 13.7 H Eos % (Auto) 3.7 Baso % (Auto) 0.4 Neut # (Auto) 3.8 Lymph # (Auto) 1.7 [place] # (Auto) 0.9 Eos # (Auto) 0.3 Baso # (Auto) 0.0 Abs Immat Gran (auto) 0.04 H Absolute Nucleated RBC 0.000 Nucleated RBC % (auto) 0.0 Sodium 135 Potassium 4.3 Chloride 102 Carbon Dioxide 28 Anion Gap 9 L BUN 15 Creatinine 0.49 L Estim Creat Clear Calc 217.9 Estimated GFR > 60 Random Glucose 109 Calcium 8.6 Total Bilirubin 0.3 Direct Bilirubin 0.2 AST 19 ALT 11 Alkaline Phosphatase 106 Total Protein 6.6 Albumin 3.2 L Lipase 54 TSH Stool Collect Date 03/12/20 Stool Occult Blood POS Blood Type Antibody Screen Antibody Identification Crossmatch 03/12/20 03/13/20 03/13/20 18:48 07:57 07:57 WBC 7.4 RBC 2.95 L D Hgb 6.6 L* D Hct 22.6 L D MCV 76.6 L D MCH 22.4 L MCHC 29.2 L RDW 21.3 H Plt Count 194 MPV 9.8 Immature Gran % (Auto) 0.4 Neut % (Auto) 71.1 Lymph % (Auto) 10.7 L [place] % (Auto) 13.6 H Eos % (Auto) 3.8 Baso % (Auto) 0.4 Neut # (Auto) 5.2 Lymph # (Auto) 0.8 L [place] # (Auto) 1.0 Eos # (Auto) 0.3 Baso # (Auto) 0.0 Abs Immat Gran (auto) 0.03 Absolute Nucleated RBC 0.000 Nucleated RBC % (auto) 0.0 Sodium 138 Potassium 4.2 Chloride 105 Carbon Dioxide 25 Anion Gap 12 BUN 13 Creatinine 0.47 L Estim Creat Clear Calc 227.1 Estimated GFR > 60 Random Glucose 112 Calcium 7.9 L Total Bilirubin Direct Bilirubin AST ALT Alkaline Phosphatase Total Protein Albumin Lipase TSH < 0.01 L Stool Collect Date Stool Occult Blood Blood Type O Positive Antibody Screen POSITIVE Antibody Identification Anti-K Crossmatch See Detail Assessment and Plan Assessment Anesthesia Assessment: Anesthesia Plan Discussed and Consent Obtained Final Anesthetic Review NPO: No (Pt had upper GI bleed, most likely blood in stomac) ASA Class: III and Emergency Final Preanesthetic Review: No Changes in Pt Med Stat, Meds & Allergies Reviewed, Consent Obtained/Reviewed and Med/Surg/Anes Hx Reviewed Patient Risk: High Procedure Risk: Low Anesthetic Plan Anesthetic Plan: GA
--- NOTE | 2020-03-13 12:40 | PM.OP ---
Brief Operative Note Date of procedure: 03/13/20 Pre-op diagnosis: GI Bleeding Post-op diagnosis: other ( Hiatal hernia with erosions, gastritis, gastric polyp) Procedure: FLEXIBLE TRANSORAL UPPER GASTROINTESTINAL ENDOSCOPY WITH BIOPSIES Consent: Indication for the procedure and potential complications including bleeding, perforation, drug reaction, aspiration and missed diagnosis were reviewed with the patient with the help of a industrial maintenance technician and informed consent was obtained. Instrument: Olympus GIF H 190 mid size upper endoscope Monitoring: Vital signs and clinical assessment, continuous EKG monitoring, Pulse oximetry, Carbon Dioxide monitoring and blood pressure monitoring were done throughout the procedure. Procedure: The patient was placed in the left lateral decubitis position and pre-procedure medications were administered and a bite block was placed. The endoscope was inserted into the mouth and advanced under direct vision to the third part of duodenum. A careful inspection was made as the upper endoscope was withdrawn including a retroflexed examination of the proximal stomach; Findings and interventions are described below. Findings: Larynx: Normal - endotracheal tube in place. Esophagus: Tortuous esophagus with increased tertiary contractions without stricture or ring. GE junction at 36 cm, hiatal hernia from 36-40 cms. A few chronic appearing non bleeding erosions in the hiatal hernia sac. No esophagitis or Barretts. Stomach: A 3-4 mm benign-appearing polyp in the gastric body which was biopsied. Mininmal gastric erythema. Biopsies were obtained. Grade 3 flap valve on retroflexed examination of the cardia. Duodenum: Normal bulb and descending duodenum. Biopsies were obtained from 4th part of duodenum to check for celiac sprue. Intervention: Biopsies as noted above Impression and Post Procedure Diagnosis: Endoscopy Findings: ESOPHAGUS: Tortuous esophagus with increased tertiary contractions without stricture or ring. GE junction at 36 cm, hiatal hernia from 36-40 cms. A few chronic appearing non bleeding erosions in the hiatal hernia sac. No esophagitis or Barretts. STOMACH: A 3-4 mm benign-appearing polyp in the gastric body which was biopsied. Mininmal gastric erythema. Biopsies were obtained to check for Helicobacter pylori. DUODENUM: Normal, biopsied to check for celiac sprue. No blood in the upper GI tract during EGD. No clear source found for GI bleed. Plan: Await pathology results Continue Protonix 40 mg IV twice daily. Clear liquid diet today and Colyte prep for colonoscopy tomorrow. Above findings were reviewed with the patient Anesthesia: GETA ( Dr. Tello) Surgeon: Dae Che Pathology: other (A. Small bowel, B. Gastric antrum, C. Gastric polyp) Condition: stable Disposition: PACU
--- NOTE | 2020-03-13 13:33 | P.BOP_ITS ---
Brief Operative Note Date of procedure: 03/13/20
--- NOTE | 2020-03-13 13:33 | PM.OP ---
Brief Operative Note Date of procedure: 03/13/20
[2020-03-13] MEDS: bisacodyL 5 MG TABLET.DR 10 MG PO (13:47)
[2020-03-13] MEDS: Lactated Ringers 1,000 ML 100 ML IVCONT ×2 (13:48→21:37)
--- NOTE | 2020-03-13 15:43 | MHC.CM.PN ---
INITIAL MEETING CM MET WITH PT AND HER SISTER WHO WAS AT BEDSIDE AND INTERPRETED. PT LIVES WITH HER DAUGHTER WHO IS ALSO HER PALM GATHERER. PT REPORTS HER PALM GATHERER HOURS ARE THROUGH [employer] AND THEY ONLY PROVIDE A FEW HOURS IN THE MORNING AND TWO IN THE EVENING. PT USES A WALKER AT HOME AND HAS NO OTHER DME. PT COMPLETED A HCP TODAY NAMING HER DAUGHTER DAISY ([phone]) HER PRIMARY AND HER SISTER NAI ([phone]) HER ALTERNATE AGENTS. IMM DELIVERED AND CURRENT DC PLAN IS HOME WITH RESUMPTION OF [employer]
[2020-03-13] MEDS: oxyCODONE HCl Immed Release 5 MG TABLET 10 MG PO (18:37)
[2020-03-13] MEDS: PEG 3350/Na Sulf,Bicarb,Cl/KCL 4,000 ML SOLN.RECON 240 ML PO ×17 (19:53→19:57)
[2020-03-13] MEDS: Melatonin 3 MG TABLET PO (21:35)
[2020-03-14] VITALS (14 sets, daily range): BP systolic 93–156; BP diastolic 58–87; PULSE 58–123; RESP 12–22; TEMP 36.3–36.9; O2SAT 85–98; BMI 28.3
[2020-03-14 06:12] LABS: MANUAL DIFF FLAG NO
[2020-03-14 06:20] LABS: Basophils Percent Auto 0.3 % (0-2); Hematocrit 26.6 % (37-47); Hemoglobin 7.8 g/dl (12.0-16.0); Imm Gran Abs Auto 0.03 X10*3/uL (0.00-0.03); Imm Gran Pct Auto 0.8 % (0.0-0.4); Lymphocytes Absolute Auto 0.8 X10*3/uL (1.2-4.9); Lymphocytes Percent Auto 20.4 % (20-40); Mean Corpuscular HGB Conc 29.3 g/dl (31.0-35.0); Mean Corpuscular Hemoglobin 23.1 pg (27.0-33.0); Mean Corpuscular Volume 78.9 fL (80-98); Mean Platelet Volume 10.7 fL (9.4-12.3); Monocytes Absolute Auto 0.3 X10*3/uL (0.1-1.2); Monocytes Percent Auto 6.6 % (2-11); NRBC Pct Auto 0.5 /100WBC (0.0-0.2); Neutrophils Absolute Auto 2.7 X10*3/uL (2.0-8.3); Neutrophils Percent Auto 71.9 % (45-73); Platelet Count 180 X10*3/uL (160-400); Red Blood Count 3.37 X10*6/uL (4.20-5.50); Red Cell Distribution Width 20.8 % (11.0-16.0); White Blood Count 3.8 X10*3/uL (4.8-10.8)
[2020-03-14 06:46] LABS: Iron 34 mcg/dL (30-160); Percent Iron Saturation 10 % (15-50); Total Iron Binding Capacity 327 mcg/dL (228-428); Unsaturated Iron Binding 293 ug/dL
[2020-03-14 06:50] LABS: Anion Gap 10 (12-20); Blood Urea Nitrogen 8 mg/dL (9-16); Calcium 8.5 mg/dL (8.4-10.2); Carbon Dioxide 30 mmol/L (22-29); Chloride 106 mmol/L (96-108); Creatinine Clr Calc Pharmacy 232.1; Estimated Glomerular Filt Rate > 60; Glucose Fasting 135 mg/dL (60-99); Potassium 4.2 mmol/l (3.3-5.1); Sodium 142 mmol/L (135-145)
[2020-03-14] MEDS: Lactated Ringers 1,000 ML 100 ML IVCONT (08:17)
--- NOTE | 2020-03-14 08:41 | HO.ANESPROP2 ---
[facility] Past Medical History Medical History (Updated 03/14/20 @ 08:38 by Keila Kenney RN) Depression Hypertension Hypothyroidism Obesity RABIA (obstructive sleep apnea) Thyroiditis Ulcer Functional capacity: independent ambulation Family History Family History (Updated 03/13/20 @ 13:28 by Dae Che MD) Other Cirrhosis Surgical History Surgical History H/O lymph node biopsy History of appendectomy Status post biopsy of uterine cervix Social History Social History Household Members: Children, Caregiver and Unknown / Unable to assess Housing: Apartment Do you presently have 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 Allergies Allergy/AdvReac Type Severity Reaction Status Date / Time ibuprofen [From MOTRIN] Allergy Unknown ULCERS Verified 03/12/20 19:51 naproxen [From NAPROSYN] Allergy Unknown ULCERS Verified 03/12/20 19:51 Home Medications Medication Instructions Recorded Confirmed Type cholecalciferol (vitamin D3) 1 cap PO BID 03/12/20 03/12/20 History [Vitamin D3] docusate sodium 1 cap PO BEDTIME PRN 03/12/20 03/12/20 History etanercept [Enbrel SureClick] 1 syringe SUBCUT QWEEK 03/12/20 03/12/20 History ferrous sulfate 1 tab PO DAILY 03/12/20 03/12/20 History fluoxetine 2 cap PO DAILY 03/12/20 03/12/20 History hydroxychloroquine 1 tab PO DAILY 03/12/20 03/12/20 History melatonin 1 tab PO BEDTIME 03/12/20 03/12/20 History oxycodone 10 mg PO Q4-6H PRN 03/12/20 03/12/20 History pantoprazole 1 tab PO BID 03/12/20 03/12/20 History sennosides-docusate sodium 2 tab PO DAILY 03/12/20 03/12/20 History [Senexon-S] Exam Exam Date and Time: March 14, 2020 0841 Height,Weight and Vital Signs: Height 5 ft 7 in Weight 180 kg Last Vital Signs Temp 97.3 F 03/14/20 08:04 Pulse 66 03/14/20 08:04 Resp 12 03/14/20 08:04 BP 107/62 03/14/20 08:04 Pulse Ox 98 03/14/20 08:10 Pertinent Lab Results Pertinent Lab Results: Laboratory Tests 03/12/20 03/12/20 03/12/20 17:08 17:18 17:19 WBC 6.7 RBC 2.28 L Hgb 4.2 L* Hct 15.9 L* MCV 69.7 L MCH 18.4 L MCHC 26.4 L RDW 19.7 H Plt Count 249 MPV 10.0 Immature Gran % (Auto) 0.6 H Neut % (Auto) 57.1 Lymph % (Auto) 24.5 [place] % (Auto) 13.7 H Eos % (Auto) 3.7 Baso % (Auto) 0.4 Neut # (Auto) 3.8 Lymph # (Auto) 1.7 [place] # (Auto) 0.9 Eos # (Auto) 0.3 Baso # (Auto) 0.0 Abs Immat Gran (auto) 0.04 H Absolute Nucleated RBC 0.000 Nucleated RBC % (auto) 0.0 Sodium 135 Potassium 4.3 Chloride 102 Carbon Dioxide 28 Anion Gap 9 L BUN 15 Creatinine 0.49 L Estim Creat Clear Calc 217.9 Estimated GFR > 60 Random Glucose 109 Fasting Glucose Calcium 8.6 Iron TIBC % Saturation Unsat Iron Binding Total Bilirubin 0.3 Direct Bilirubin 0.2 AST 19 ALT 11 Alkaline Phosphatase 106 Total Protein 6.6 Albumin 3.2 L Lipase 54 TSH Stool Collect Date 03/12/20 Stool Occult Blood POS Blood Type Antibody Screen Antibody Identification Crossmatch 03/12/20 03/13/20 03/13/20 18:48 07:57 07:57 WBC 7.4 RBC 2.95 L D Hgb 6.6 L* D Hct 22.6 L D MCV 76.6 L D MCH 22.4 L MCHC 29.2 L RDW 21.3 H Plt Count 194 MPV 9.8 Immature Gran % (Auto) 0.4 Neut % (Auto) 71.1 Lymph % (Auto) 10.7 L [place] % (Auto) 13.6 H Eos % (Auto) 3.8 Baso % (Auto) 0.4 Neut # (Auto) 5.2 Lymph # (Auto) 0.8 L [place] # (Auto) 1.0 Eos # (Auto) 0.3 Baso # (Auto) 0.0 Abs Immat Gran (auto) 0.03 Absolute Nucleated RBC 0.000 Nucleated RBC % (auto) 0.0 Sodium 138 Potassium 4.2 Chloride 105 Carbon Dioxide 25 Anion Gap 12 BUN 13 Creatinine 0.47 L Estim Creat Clear Calc 227.1 Estimated GFR > 60 Random Glucose 112 Fasting Glucose Calcium 7.9 L Iron TIBC % Saturation Unsat Iron Binding Total Bilirubin Direct Bilirubin AST ALT Alkaline Phosphatase Total Protein Albumin Lipase TSH < 0.01 L Stool Collect Date Stool Occult Blood Blood Type O Positive Antibody Screen POSITIVE Antibody Identification Anti-K Crossmatch See Detail 03/14/20 03/14/20 03/14/20 05:33 05:34 05:34 WBC 3.8 L RBC 3.37 L Hgb 7.8 L Hct 26.6 L MCV 78.9 L MCH 23.1 L MCHC 29.3 L RDW 20.8 H Plt Count 180 MPV 10.7 Immature Gran % (Auto) 0.8 H Neut % (Auto) 71.9 Lymph % (Auto) 20.4 [place] % (Auto) 6.6 Eos % (Auto) 0.0 Baso % (Auto) 0.3 Neut # (Auto) 2.7 Lymph # (Auto) 0.8 L [place] # (Auto) 0.3 Eos # (Auto) 0.0 Baso # (Auto) 0.0 Abs Immat Gran (auto) 0.03 Absolute Nucleated RBC 0.020 H Nucleated RBC % (auto) 0.5 H Sodium 142 Potassium 4.2 Chloride 106 Carbon Dioxide 30 H Anion Gap 10 L BUN 8 L Creatinine 0.46 L Estim Creat Clear Calc 232.1 Estimated GFR > 60 Random Glucose Fasting Glucose 135 H Calcium 8.5 Iron 34 TIBC 327 % Saturation 10 L Unsat Iron Binding 293 Total Bilirubin Direct Bilirubin AST ALT Alkaline Phosphatase Total Protein Albumin Lipase TSH Stool Collect Date Stool Occult Blood Blood Type Antibody Screen Antibody Identification Crossmatch Airway Mallampati Class: III TM Dist: >3cm Neck ROM: Limited Heart: RRR Assessment and Plan Final Anesthetic Review NPO: Yes ASA Class: III Final Preanesthetic Review: Meds & Allergies Reviewed and Consent Obtained/Reviewed Anesthetic Plan Anesthetic Plan: MAC: Disposition: Standard PACU
--- NOTE | 2020-03-14 09:05 | PM.OP ---
Brief Operative Note Date of procedure: 03/14/20 Pre-op diagnosis: Gi Bleed Procedure: COLONOSCOPY PROCEDURE NOTE Colonoscopy with snare polypectomy Consent: Indications of the procedure and potential complications including bleeding, perforation, reaction to medications and missed diagnosis were reviewed with the patient and informed consent was obtained. Instrument: Olympus PCF H 190 L variable stiffness pediatric colonoscope Colon withdrawl time was 23 minutes. Procedure: The patient was placed in the left lateral decubitis position and pre-procedure medications were administered. After a digital rectal examination of the ano-rectum, the video colonoscope was inserted into the rectum and advanced through the colon to the cecum. The colonoscope was slowly withdrawn in a retrograde panoramic fashion and the colon mucosa was carefully examined including a retroflexed view of the rectum. Findings and interventions are described below. Procedure Difficulty: Without difficulty Findings: Terminal Ileum: Multiple attempts to intubate the TI were unsuccessful Cecum: Normal. Ascending Colon: Normal Transverse Colon: A 5-6 mm sessile non-bleeding polyp at 60 cms - removed with a cold snare. Descending Colon: Moderate diverticulosis. Sigmoid Colon: Moderate diverticulosis. Rectum Normal Anorectum - Large non-bleeding internal hemorrhoids. Colon preparation: Good after some irrigation. Impression and Post Procedure Diagnosis: Colonoscopy Findings: One small polyp removed. Moderate diverticulosis seen in the left colon. Moderate hemorrhoids on retroflexed exam. No blood seen in the colon during colonoscopy. Recent episode of bleeding possibly from MW tear which healed or self limited diverticular bleed. Chronic iron def anemia possibly intermittent small bowel source versus intermittent rectal bleeding from large hemorrhoids Plan: Await pathology results Resume a regular diet. OK to discharge home if no further bleeding on Omeprazole and oral iron replacement with repeat CBC next week. If she rebleeds, obtain a CT angio. Patient to schedule a FU appointment in the GI Clinic with Dae Che M.D. Repeat Colonoscopy interval based on path results - in 5 years if polyp is adenomatous. I will schedule her for a Caspule Study as an outpatient. Above findings were reviewed with the patient and handout on colon polyps and diverticulosis were provided. Anesthesia: MAC (Dr Patel) Surgeon: Dae Che Pathology: other (TC Polyp x 1) Condition: stable Disposition: floor
[2020-03-14 09:58] LABS: Folate 15.8 ng/mL (> or = 4.0); Vitamin B12 885 pg/mL (200-900)
[2020-03-14] MEDS: Cholecalciferol (Vitamin D3) 25 MCG TABLET 50 MCG PO ×2 (11:52→22:26)
[2020-03-14] MEDS: atenoloL 25 MG TABLET PO ×2 (11:53→22:26)
[2020-03-14] MEDS: Hydroxychloroquine Sulfate 200 MG TABLET PO (11:53)
[2020-03-14] MEDS: FLUoxetine HCl 20 MG CAPSULE 40 MG PO (11:53)
--- NOTE | 2020-03-14 12:01 | MHC.CM.PN ---
Patient is NPO today for a scheduled colonoscopy. Discharge home with resumption of [facility] services, family will transport. CM will continue to follow for discharge needs.
--- NOTE | 2020-03-14 12:22 | P.DS_ITS ---
DS: Providers Provider Date of admission: 03/12/20 23:04 Primary care physician: Jenae Khan MD DS: Diagnosis Discharge Diagnosis (1) Acute blood loss anemia: Status: Acute (2) Melena: Status: Acute (3) Thyroiditis: Status: Acute DS: Summary Hospital Course Hospital Course: patient was admitted for acute blood loss anemia and severe anemia with hemoglobin of 4.2. She received 4 units PRBC total and hemoglobin improved to 7.8. Patient had no further bleeding. She was seen by Gastroenterology who performed EGD which was unremarkable. Next day patient had colonoscopy which also did not show obvious site of bleeding. She was transitioned back to oral PPI. She will continue oral iron. She will follow-up with Gastroenterology for possible capsule endoscopy. Patient was also noted to still have thyrotoxicosis, due to previous diagnosis of thyroiditis. Her TSH is still undetectable despite being off Synthroid. Patient reports that she never followed up with endocrinology. She will be referred again to endocrinology and started on atenolol 25 mg p.o. b.i.d.. Time Spent with Patient Time attestation: Total time spent providing and/or coordinating discharge services: Physical Exam Vital Signs and I&O and Narrative: Vital Signs and I&O: Vital Signs Temp 98.2 F 03/14/20 11:20 Pulse 65 03/14/20 11:20 Resp 20 03/14/20 11:20 BP 137/66 03/14/20 11:20 Pulse Ox 97 03/14/20 11:20 Intake & Output 03/13/20 03/14/20 03/14/20 18:59 06:59 18:59 Intake Total 0 / 781.667 781.667 / 096.486 8209 / 1075 Output Total 1000 / 2500 1500 / 2500 Balance -1000 / -1718.333 -718.333 / -1718.3 33 1075 / 1075 Urine Output (Aver age ml/kg/hr) 0.46 0.69 1.52 Weight 82.024 kg Intake: Intake (Blood Pr oduct) Amount 0 / 0 Red Blood Cell s (E0382) Unit 0 / 0 [id number] Intake, IV Amoun t 781.667 / 634.105 8728 / 1075 Lactated Ringe rs 1,000 ml @ 100 781.667 / 777.045 8727 / 1075 mls/hr IVCONT .Q10H [facility] Rx#: [id number] Output: Output, Urine Am ount 1000 / 2500 1500 / 2500 Other: NPO No: Pt had upper G I bleed, most like ly blood in stomac Yes Number of Bowel Movements 1 Number of Incont inent Bowel 1 Movements Urine Bedpan Urine Color Yellow Stool Bedpan Stool Color Brown Stool Consistenc y Liquid Body Mass Index 28.3 DS: Data Data Completed and Pending Pending studies at discharge: Pending at discharge 03/13/20 12:42 Surgical [PTH] Routine 03/14/20 09:35 Surgical [PTH] Routine Labs on day of discharge: Labs from last 24 hours 03/14/20 03/14/20 03/14/20 05:34 05:34 05:34 WBC 3.8 L RBC 3.37 L Hgb 7.8 L Hct 26.6 L MCV 78.9 L MCH 23.1 L MCHC 29.3 L RDW 20.8 H Plt Count 180 MPV 10.7 Immature Gran % (Auto) 0.8 H Neut % (Auto) 71.9 Lymph % (Auto) 20.4 [place] % (Auto) 6.6 Eos % (Auto) 0.0 Baso % (Auto) 0.3 Neut # (Auto) 2.7 Lymph # (Auto) 0.8 L [place] # (Auto) 0.3 Eos # (Auto) 0.0 Baso # (Auto) 0.0 Abs Immat Gran (auto) 0.03 Absolute Nucleated RBC 0.020 H Nucleated RBC % (auto) 0.5 H Sodium 142 Potassium 4.2 Chloride 106 Carbon Dioxide 30 H Anion Gap 10 L BUN 8 L Creatinine 0.46 L Estim Creat Clear Calc 232.1 Estimated GFR > 60 Fasting Glucose 135 H Calcium 8.5 Iron TIBC % Saturation Unsat Iron Binding Vitamin B12 885 Folate 15.8 Antibody Identification Crossmatch 03/14/20 03/12/20 05:33 18:48 WBC RBC Hgb Hct MCV MCH MCHC RDW Plt Count MPV Immature Gran % (Auto) Neut % (Auto) Lymph % (Auto) [place] % (Auto) Eos % (Auto) Baso % (Auto) Neut # (Auto) Lymph # (Auto) [place] # (Auto) Eos # (Auto) Baso # (Auto) Abs Immat Gran (auto) Absolute Nucleated RBC Nucleated RBC % (auto) Sodium Potassium Chloride Carbon Dioxide Anion Gap BUN Creatinine Estim Creat Clear Calc Estimated GFR Fasting Glucose Calcium Iron 34 TIBC 327 % Saturation 10 L Unsat Iron Binding 293 Vitamin B12 Folate Antibody Identification Anti-K Crossmatch See Detail Discharge Plan Discharge Patient Disposition: Home, Self-Care Referrals: Jenae Khan MD [Primary Care Provider] - Dae Che MD [Physician] - 1 Week Tessa Charlton MD [Physician] - 1 Week (thyroiditis) Discharge Medications: New atenolol 25 mg Tablet 25 mg PO BID Qty: 60 RF: 0 Continued pantoprazole 40 mg tablet,delayed release (DR/EC) 1 tab PO BID RF: 0 ferrous sulfate 325 mg (65 mg iron) tablet 1 tab PO DAILY RF: 0 docusate sodium 100 mg capsule 1 cap PO BEDTIME PRN (Reason: Constipation) RF: 0 hydroxychloroquine 200 mg tablet 1 tab PO DAILY RF: 0 fluoxetine 20 mg capsule 2 cap PO DAILY RF: 0 Enbrel SureClick 50 mg/mL (1 mL) pen injector 1 syringe subcut QWEEK RF: 0 oxycodone 10 mg tablet 10 mg PO Q4-6H PRN (Reason: Pain, Moderate) RF: 0 melatonin 5 mg tablet 1 tab PO BEDTIME RF: 0 cholecalciferol (vitamin D3) [Vitamin D3] 50 mcg (2,000 unit) capsule 1 cap PO BID RF: 0 sennosides-docusate sodium [Senexon-S] 8.6-50 mg tablet 2 tab PO DAILY RF: 0 Discharge Orders: Discharge Order (Routine); Ordered 03/14/20 Ordered By: Josr Fuentes Activity on Discharge: As tolerated Patient Instructions: Colorectal Polyps (DC), Colonoscopy (DC) Print Language: Faroese Visit Report Forms: Patient Portal Discharge page Care Plan Goals: recovery Health Concerns: anemia Plan of Treatment: Monitor for further bleeding, follow-up with Gastroenterology, follow-up with endocrinology, started on atenolol 25 mg p.o. twice a day
--- NOTE | 2020-03-14 12:30 | MHC.CM.PN ---
Patient will be discharged home today with resumption of [facility] [employer] services. Family will provide transportation.
[2020-03-14] MEDS: oxyCODONE HCl Immed Release 5 MG TABLET 10 MG PO ×2 (12:32→22:26)
--- NOTE | 2020-03-14 13:54 | HO.POSTANES ---
Post Anesthesia Evaluation Post Anesthesia Evaluation Vital Signs: Vital Signs Temp Pulse Resp BP Pulse Ox 03/14/20 11:20 98.2 F 65 20 137/66 97 03/14/20 10:42 97.7 F 103 H 22 H 119/60 91 L 03/14/20 10:27 108 H 13 123/67 95 03/14/20 10:09 98.3 F 123 H 22 H 94 03/14/20 08:10 98 03/14/20 08:04 97.3 F 66 12 107/62 85 L 03/14/20 07:31 97.3 F 58 18 140/58 H 98 03/14/20 04:00 98.4 F 96 18 156/87 H 96 Anesthesia: Monitored Mental Status: Awake Pain Control: Satisfactory Nausea/Vomiting: None Hydration: Adequate Anesthesia-Related Issues: No Anes. Related Issues
--- NOTE | 2020-03-14 18:04 | P.PNIM_ITS ---
Subjective Subjective Date of Service: 03/14/20 Interval History: feeling too weak to go home, no longer bleeding Cardiovascular Cardiovascular: Reports no additional cardiovascular complaints Respiratory Respiratory: Reports no additional respiratory complaints Physical Exam Vital Signs and I&O and Narrative: Vital Signs and I&O: Vital Signs Temp 98.1 F 03/14/20 16:00 Pulse 114 H 03/14/20 16:00 Resp 20 03/14/20 16:00 BP 113/62 03/14/20 16:00 Pulse Ox 98 03/14/20 16:00 Intake & Output 03/13/20 03/14/20 03/14/20 18:59 06:59 18:59 Intake Total 0 / 781.667 781.667 / 537.169 2413 / 1075 Output Total 1000 / 2500 1500 / 2500 Balance -1000 / -1718.333 -718.333 / -1718.3 33 1075 / 1075 Urine Output (Aver age ml/kg/hr) 0.46 0.69 1.52 Weight 82.024 kg Intake: Intake (Blood Pr oduct) Amount 0 / 0 Red Blood Cell s (E0382) Unit 0 / 0 [id number] Intake, IV Amoun t 781.667 / 361.941 1381 / 1075 Lactated Ringe rs 1,000 ml @ 100 781.667 / 248.004 7606 / 1075 mls/hr IVCONT .Q10H [facility] Rx#: [id number] Output: Output, Urine Am ount 1000 / 2500 1500 / 2500 Other: NPO No: Pt had upper G I bleed, most like ly blood in stomac Yes Number of Bowel Movements 1 Number of Incont inent Bowel 1 Movements Urine Bedpan Urine Color Yellow Stool Bedpan Stool Color Brown Stool Consistenc y Liquid Body Mass Index 28.3 General: AO X 3, no acute distress Resp: CTA bilateral CVS: S1,S2,RRR GI: soft, non tender, non distended Neuro: motor grossly intact Psych: appropriate affect Objective Data Current Medications Generic Name Dose Route Start Last Admin Trade Name Freq PRN Reason Stop Dose Admin Atenolol 25 mg 03/14/20 09:00 03/14/20 11:53 Atenolol 25 Mg Tablet PO 25 mg BID [facility] Administration Protocol Docusate Sodium 100 mg 03/12/20 23:57 Docusate Sodium 100 Mg Capsule PO BEDTIME PRN Constipation Fluoxetine HCl 40 mg 03/13/20 09:00 03/14/20 11:53 Fluoxetine Hcl 20 Mg Capsule PO 40 mg DAILY [facility] Administration Hydroxychloroquine Sulfate 200 mg 03/13/20 09:00 03/14/20 11:53 Hydroxychloroquine Sulfate 200 Mg Tablet PO 200 mg DAILY [facility] Administration Melatonin 3 mg 03/13/20 21:00 03/13/20 21:35 Melatonin 3 Mg Tablet PO 3 mg BEDTIME AHILE Administration Omeprazole 20 mg 03/14/20 06:30 03/14/20 05:05 Omeprazole 20 Mg Capsule.Dr PO Not Given DAILY@0630 [facility] Oxycodone HCl 10 mg 03/13/20 14:27 03/14/20 12:32 Oxycodone Hcl Immed Release 5 Mg Tablet PO 10 mg Q4H PRN Administration Pain, Moderate Senna/Docusate Sodium 2 tab 03/13/20 09:00 03/13/20 08:07 Sennosides/Docusate Sodium Tablet PO Not Given DAILY [facility] Vitamin D 50 mcg 03/13/20 09:00 03/14/20 11:52 Cholecalciferol (Vitamin D3) 25 Mcg Tablet PO 50 mcg BID [facility] Administration Labs CBC & Chem 7: 03/14/20 05:34 03/14/20 05:34 Labs: Laboratory Results - last 24 hr 03/12/20 03/14/20 03/14/20 18:48 05:33 05:34 MCV MCH MCHC RDW Plt Count MPV Immature Gran % (Auto) Neut % (Auto) Lymph % (Auto) [place] % (Auto) Eos % (Auto) Baso % (Auto) Neut # (Auto) Lymph # (Auto) [place] # (Auto) Eos # (Auto) Baso # (Auto) Abs Immat Gran (auto) Absolute Nucleated RBC Nucleated RBC % (auto) Anion Gap Estim Creat Clear Calc Estimated GFR Fasting Glucose Calcium Iron 34 TIBC 327 % Saturation 10 L Unsat Iron Binding 293 Vitamin B12 885 Folate 15.8 Antibody Identification Anti-K Crossmatch See Detail 03/14/20 03/14/20 05:34 05:34 MCV 78.9 L MCH 23.1 L MCHC 29.3 L RDW 20.8 H Plt Count 180 MPV 10.7 Immature Gran % (Auto) 0.8 H Neut % (Auto) 71.9 Lymph % (Auto) 20.4 [place] % (Auto) 6.6 Eos % (Auto) 0.0 Baso % (Auto) 0.3 Neut # (Auto) 2.7 Lymph # (Auto) 0.8 L [place] # (Auto) 0.3 Eos # (Auto) 0.0 Baso # (Auto) 0.0 Abs Immat Gran (auto) 0.03 Absolute Nucleated RBC 0.020 H Nucleated RBC % (auto) 0.5 H Anion Gap 10 L Estim Creat Clear Calc 232.1 Estimated GFR > 60 Fasting Glucose 135 H Calcium 8.5 Iron TIBC % Saturation Unsat Iron Binding Vitamin B12 Folate Antibody Identification Crossmatch Assessment and Plan (1) Acute blood loss anemia: Status: Acute (2) Melena: Status: Acute (3) Thyroiditis: Status: Acute Assessment and Plan: 59-year-old female presented with hematemesis, melena, found to have severe anemia with hemoglobin of 4.2 acute blood loss anemia hemoglobin improved to 7.6 after 4 units PRBC. EGD and colonoscopy did not reveal source of bleed. Switch to oral PPI plan for outpatient capsule endoscopy discharge delayed as patient feeling too weak and does not have help to get home monitor overnight, follow-up CBC thyroiditis sinus tachycardia, patient reports weight loss, patient did not show up for her endocrinology appointment 2 months ago, plan to follow up outpatient. will start on atenolol rheumatoid arthritis Plaquenil
[2020-03-14] MEDS: Melatonin 3 MG TABLET PO (22:26)
[2020-03-15] VITALS (9 sets, daily range): BP systolic 85–134; BP diastolic 45–83; PULSE 83–103; RESP 18–20; TEMP 36.3–37.2; O2SAT 86–100
--- NOTE | 2020-03-15 | XR_ITS ---
EXAMINATION: XR CHEST CLINICAL INFORMATION: Suspected aspiration pneumonia COMPARISON: Previous chest x-rays most recent January 2020 TECHNIQUE: Frontal view of the chest was obtained. FINDINGS: The cardiac and mediastinal contours are stable. There is an abnormal density projecting over the left lung base and the heart which when compared with previous CT scan corresponds to an esophageal hernia. The lung volumes are low. There is airspace disease seen in the left mid lung new from January 2020 exam suggestive of a pneumonia. There is no pleural effusion or pneumothorax. There are degenerative changes of the spine and at the shoulder joints. IMPRESSION: New left-sided airspace disease suggestive of pneumonia.
[2020-03-15 06:56] LABS: Basophils Absolute Auto 0.1 X10*3/uL (0.0-0.2); Basophils Percent Auto 0.3 % (0-2); Eosinophils Absolute Auto 0.1 X10*3/uL (0.0-0.4); Eosinophils Percent Auto 0.5 % (0-4); Hematocrit 25.9 % (37-47); Hemoglobin 7.6 g/dl (12.0-16.0); Imm Gran Abs Auto 0.09 X10*3/uL (0.00-0.03); Imm Gran Pct Auto 0.4 % (0.0-0.4); Lymphocytes Absolute Auto 2.6 X10*3/uL (1.2-4.9); Lymphocytes Percent Auto 12.7 % (20-40); MANUAL DIFF FLAG SCAN; Mean Corpuscular HGB Conc 29.3 g/dl (31.0-35.0); Mean Corpuscular Hemoglobin 23.8 pg (27.0-33.0); Mean Corpuscular Volume 80.9 fL (80-98); Mean Platelet Volume 10.5 fL (9.4-12.3); Monocytes Absolute Auto 1.8 X10*3/uL (0.1-1.2); NRBC Pct Auto 0.1 /100WBC (0.0-0.2); Neutrophils Absolute Auto 15.8 X10*3/uL (2.0-8.3); Neutrophils Percent Auto 77.1 % (45-73); Platelet Count 220 X10*3/uL (160-400); Red Cell Distribution Width 22.8 % (11.0-16.0); SCAN SMEAR FLAG 1; White Blood Count 20.5 X10*3/uL (4.8-10.8)
[2020-03-15 07:20] LABS: SLIDE REVIEW VERIFIED
[2020-03-15 07:28] LABS: Anion Gap 11 (12-20); Blood Urea Nitrogen 23 mg/dL (9-16); Calcium 8.2 mg/dL (8.4-10.2); Carbon Dioxide 29 mmol/L (22-29); Chloride 99 mmol/L (96-108); Creatinine Clr Calc Pharmacy 97.6; Estimated Glomerular Filt Rate > 60; Glucose Fasting 108 mg/dL (60-99); Potassium 4.4 mmol/l (3.3-5.1); Sodium 135 mmol/L (135-145)
[2020-03-15] MEDS: Sennosides/Docusate Sodium TABLET 2 TAB PO (08:05)
[2020-03-15] MEDS: Cholecalciferol (Vitamin D3) 25 MCG TABLET 50 MCG PO (08:06)
[2020-03-15] MEDS: oxyCODONE HCl Immed Release 5 MG TABLET 10 MG PO (08:06)
[2020-03-15] MEDS: FLUoxetine HCl 20 MG CAPSULE 40 MG PO (08:06)
[2020-03-15] MEDS: atenoloL 25 MG TABLET PO (08:06)
[2020-03-15] MEDS: Hydroxychloroquine Sulfate 200 MG TABLET PO (08:06)
[2020-03-15] MEDS: 0.9 % Sodium Chloride Flush 3 ML SYRINGE 2 ML IVFLUSH (08:07)
--- NOTE | 2020-03-15 10:27 | HO.POSTANES ---
Post Anesthesia Evaluation Post Anesthesia Evaluation Vital Signs: Vital Signs Temp Pulse Resp BP Pulse Ox 03/15/20 07:28 98.6 F 87 20 104/55 L 98 03/15/20 03:56 98.8 F 83 18 134/83 98 03/14/20 23:50 98.0 F 102 H 16 93/70 96 Anesthesia: Monitored Mental Status: Awake Pain Control: Satisfactory Nausea/Vomiting: None Hydration: Adequate Anesthesia-Related Issues: No Anes. Related Issues
[2020-03-15] MEDS: 0.9 % Sodium Chloride 1,000 ML 500 ML IVCONT (11:32)
--- NOTE | 2020-03-15 11:39 | PC.NURSE ---
PT was planned for discharge today. Blood pressure soft 92/42 HR 103, PT is arousable to voice and is A&O, asymptomatic otherwise. MD made aware, new orders for NS bolus at 500ml/hr x1 and STAT CXR. Will continue to monitor and update.
[2020-03-15] MEDS: Piperacillin Sodium/Tazobactam 3.375 GM in 0.9 % Sodium Chloride 50 ML IV ×2 (15:26→22:32)
[2020-03-15] MEDS: Naloxone HCl 0.4 MG/ML VIAL IVPUSH (16:43)
--- NOTE | 2020-03-15 16:52 | P.PNIM_ITS ---
Subjective Subjective Date of Service: 03/15/20 Interval History: seen and evaluated multiple occasions during the day A rapid response was called in the afternoon Patient sleepy and lethargic No reported fever, chills overnight No other overnight events Review of Systems Review of Systems: Yes all other systems are reviewed and are negative Constitutional Constitutional: Reports lethargy and Reports malaise very lethargic and sleepy to complain Physical Exam Vital Signs and I&O and Narrative: Vital Signs and I&O: Vital Signs Temp 98.9 F 03/15/20 11:14 Pulse 103 H 03/15/20 11:14 Resp 20 03/15/20 11:14 BP 102/65 03/15/20 13:55 Pulse Ox 94 03/15/20 12:00 Intake & Output 03/14/20 03/15/20 03/15/20 18:59 06:59 18:59 Intake Total 1075 / 1935 860 / 1935 1170 / 1170 Output Total 1150 / 1150 Balance 1075 / 785 -290 / 785 1170 / 1170 Urine Output (Aver age ml/kg/hr) 1.17 1.17 Weight 82.024 kg Intake: Intake, Oral [place] unt 860 / 860 120 / 120 Intake, IV Amoun t 1075 / 1075 1050 / 1050 Piperacillin S odium/Tazobactam 50 / 50 3.375 gm In 0. 9 % Sodium Chloride 50 ml @ 100 mls/hr IV Q6H [facility] Rx#:[id number] 0.9 % Sodium C hloride 1,000 ml 1000 / 1000 @ 500 mls/hr I VCONT .Q2H [facility] Rx #:[id number] Lactated Ringe rs 1,000 ml @ 100 1075 / 1075 mls/hr IVCONT .Q10H [facility] Rx#: [id number] Output: Output, Urine Am ount 1150 / 1150 Other: NPO Yes Breakfast % Eate n 75% Lunch % Eaten 0% Urine Bedpan Urine Color Yellow Body Mass Index 28.3 Const: General: lethargic and patient obtunded Nutritional Appearance: well nourished Orientation/consciousness: patient obtunded and lethargic Limitations: altered mental status Eyes: Pupils: Equal, round and reactive pupils present and Pinpoint pupils Neck: Neck: Yes normal visual inspection and Yes full ROM Resp: Effort & Inspection: normal respiratory effort Auscultation: clear to auscultation bilaterally Cardio: Jugular venous distension: no JVD Heart sounds: S1 normal heart sound present and S2 normal heart sound present Neuro: General: patient obtunded Cranial nerves: Yes Equal, round and reactive pupils present and Yes Nystagmus not present Objective Data Current Medications Generic Name Dose Route Start Last Admin Trade Name Freq PRN Reason Stop Dose Admin Atenolol 25 mg 03/14/20 09:00 03/15/20 08:06 Atenolol 25 Mg Tablet PO 25 mg BID [facility] Administration Protocol Docusate Sodium 100 mg 03/12/20 23:57 Docusate Sodium 100 Mg Capsule PO BEDTIME PRN Constipation Fluoxetine HCl 40 mg 03/13/20 09:00 03/15/20 08:06 Fluoxetine Hcl 20 Mg Capsule PO 40 mg DAILY [facility] Administration Hydroxychloroquine Sulfate 200 mg 03/13/20 09:00 03/15/20 08:06 Hydroxychloroquine Sulfate 200 Mg Tablet PO 200 mg DAILY [facility] Administration Piperacillin Sod/Tazobactam 50 mls @ 100 mls/hr 03/15/20 16:00 03/15/20 15:56 Sod 3.375 gm/ Sodium Chloride IV Infused Q6H [facility] Infusion Sodium Chloride 1,000 mls @ 999 mls/hr 03/15/20 16:30 03/15/20 16:43 Ns IVCONT 03/15/20 17:30 999 mls/hr .Q1H1M [facility] Administration Melatonin 3 mg 03/13/20 21:00 03/14/20 22:26 Melatonin 3 Mg Tablet PO 3 mg BEDTIME [facility] Administration Naloxone HCl 4 mg 03/15/20 16:50 Naloxone Hcl Nasal 4 Mg [place] NOSTRILALT 03/15/20 16:51 ONCE ONE Omeprazole 20 mg 03/14/20 06:30 03/14/20 05:05 Omeprazole 20 Mg Capsule. PO Not Given DAILY@0630 [facility] Senna/Docusate Sodium 2 tab 03/13/20 09:00 03/15/20 08:05 Sennosides/Docusate Sodium Tablet PO 2 tab DAILY [facility] Administration Vitamin D 50 mcg 03/13/20 09:00 03/15/20 08:06 Cholecalciferol (Vitamin D3) 25 Mcg Tablet PO 50 mcg BID [facility] Administration Labs CBC & Chem 7: 03/15/20 05:21 03/15/20 05:21 Labs: Laboratory Results - last 24 hr 03/15/20 03/15/20 05:21 05:21 MCV 80.9 MCH 23.8 L MCHC 29.3 L RDW 22.8 H Plt Count 220 MPV 10.5 Immature Gran % (Auto) 0.4 Neut % (Auto) 77.1 H Lymph % (Auto) 12.7 L [place] % (Auto) 9.0 Eos % (Auto) 0.5 Baso % (Auto) 0.3 Neut # (Auto) 15.8 H Lymph # (Auto) 2.6 [place] # (Auto) 1.8 H Eos # (Auto) 0.1 Baso # (Auto) 0.1 Abs Immat Gran (auto) 0.09 H Absolute Nucleated RBC 0.020 H Nucleated RBC % (auto) 0.1 Smear Tech's Comments VERIFIED Anion Gap 11 L Estim Creat Clear Calc 97.6 Estimated GFR > 60 Fasting Glucose 108 H Calcium 8.2 L Assessment and Plan (1) Sepsis: Status: Acute (2) Aspiration pneumonia: Status: Acute (3) Acute blood loss anemia: Status: Acute (4) Severe anemia: Status: Acute (5) Hypertension: Status: Acute (6) Thyroiditis: Status: Acute Assessment and Plan: 59-year-old female presented with hematemesis, melena, found to have severe anemia with hemoglobin of 4.2 Sepsis Aspiration pneumonia Elevated WBCs, CXR and drop in blood pressure Blood pressure responded to IV fluid Pending lactic acid and blood cultures Started broad-spectrum antibiotic of Zosyn O2 supplement as needed Keep head elevated Altered mentation Pinpoint Pupils on exam Likely secondary to oxycodone, to DC Received Narcan with good response Continue to monitor acute blood loss anemia hemoglobin improved to 7.4 after 4 units PRBC. EGD and colonoscopy did not reveal source of bleed. Switch to oral PPI plan for outpatient capsule endoscopy monitor overnight, follow-up CBC thyroiditis sinus tachycardia, patient reports weight loss, patient did not show up for her endocrinology appointment 2 months ago, plan to follow up outpatient. continue atenolol rheumatoid arthritis Plaquenil DVT PPX SCDs
[2020-03-15] MEDS: Naloxone HCl Nasal 4 MG SPRAY NOSTRILALT (16:54)
--- NOTE | 2020-03-15 18:30 | XR_ITS ---
EXAMINATION: XR CHEST CLINICAL INFORMATION: Right IJ placement COMPARISON: Chest x-ray today 12:23 PM TECHNIQUE: Frontal portable view of the chest was obtained. 6:42 PM FINDINGS: Tubes and lines: 1. Right IJ catheter tip at cavoatrial junction. There is persistent airspace opacity in the left lung. There is now also a subtle patchy area of increasing density the right upper lobe at the apex of the lung. Probable small left pleural effusion. The left costophrenic angle is blunted. IMPRESSION: 1. Right IJ catheter tip at cavoatrial junction. 3. Persistent infiltrate left lung and small left pleural effusion. Question of developing small infiltrate at right lung apex.
--- NOTE | 2020-03-15 19:31 | PM.CCPN ---
Physical Exam Vital Signs and I&O and Narrative: Vital Signs and I&O: Vital Signs Temp 98.1 F 03/15/20 16:00 Pulse 102 H 03/15/20 16:00 Resp 20 03/15/20 16:00 BP 90/45 L 03/15/20 16:00 Pulse Ox 86 L 03/15/20 16:00 Intake & Output 03/15/20 03/15/20 03/16/20 06:59 18:59 06:59 Intake Total 860 / 1935 1170 / 1170 Output Total 1150 / 1150 Balance -290 / 785 1170 / 1170 Urine Output (Aver age ml/kg/hr) 1.17 1.17 Intake: Intake, Oral [place] unt 860 / 860 120 / 120 Intake, IV Amoun t 1050 / 1050 Piperacillin S odium/Tazobactam 50 / 50 3.375 gm In 0. 9 % Sodium Chloride 50 ml @ 100 mls/hr IV Q6H [facility] Rx#:[id number] 0.9 % Sodium C hloride 1,000 ml 1000 / 1000 @ 500 mls/hr I VCONT .Q2H [facility] Rx #:[id number] Output: Output, Urine Am ount 1150 / 1150 Other: Breakfast % Eate n 75% Lunch % Eaten 0% Dinner % Eaten 0% Urine Bedpan Urine Color Yellow Body Mass Index 28.3 Objective Data Labs CBC & Chem 7: 03/15/20 05:21 03/15/20 05:21 Labs: Laboratory Results - last 24 hr 03/15/20 03/15/20 05:21 05:21 WBC 20.5 H RBC 3.20 L Hgb 7.6 L Hct 25.9 L MCV 80.9 MCH 23.8 L MCHC 29.3 L RDW 22.8 H Plt Count 220 MPV 10.5 Immature Gran % (Auto) 0.4 Neut % (Auto) 77.1 H Lymph % (Auto) 12.7 L [place] % (Auto) 9.0 Eos % (Auto) 0.5 Baso % (Auto) 0.3 Neut # (Auto) 15.8 H Lymph # (Auto) 2.6 [place] # (Auto) 1.8 H Eos # (Auto) 0.1 Baso # (Auto) 0.1 Abs Immat Gran (auto) 0.09 H Absolute Nucleated RBC 0.020 H Nucleated RBC % (auto) 0.1 Smear Tech's Comments VERIFIED Sodium 135 Potassium 4.4 Chloride 99 Carbon Dioxide 29 Anion Gap 11 L BUN 23 H D Creatinine 0.70 Estim Creat Clear Calc 97.6 Estimated GFR > 60 Fasting Glucose 108 H Calcium 8.2 L Progress Note: A&P Time Spent With Patient Time: Total time spent is greater than 50% in coordination of care (as documented) at patient's floor/unit and/or counseling patient:
[2020-03-15] MEDS: 0.9 % Sodium Chloride 1,000 ML 999 ML IVCONT ×2 (19:33→22:31)
--- NOTE | 2020-03-15 19:39 | PC.NURSE ---
1600 RN in room with family member. PT hard to arouse with sternal rub, opening eyes very minimally and snoring. Vitals taken, oxygen 70%, manual blood pressure 90/45. Rapid Response called, MD in room. Orders for Narcan. 1610: One time nasal spray of Narcan given, no effect. 1618: One time IV push Narcan given, PT arousable and verbalizing with staff. Order for NS IV bolus, IV infiltrated. Nursing pot lining supervisor, ED RN attempted access, unobtainable. MD made aware. ICU MD to place central line. Central line placed with STAT CXR for placement, okay to use line. NS bolus running to TLC in Right IJ. Night RN up to date.
[2020-03-15 19:46] LABS: Hematocrit 25.2 % (37-47); Hemoglobin 7.5 g/dl (12.0-16.0); Mean Corpuscular HGB Conc 29.8 g/dl (31.0-35.0); Mean Corpuscular Hemoglobin 24.1 pg (27.0-33.0); Mean Platelet Volume 10.6 fL (9.4-12.3); NRBC Pct Auto 0.3 /100WBC (0.0-0.2); Platelet Count 203 X10*3/uL (160-400); Red Blood Count 3.11 X10*6/uL (4.20-5.50); Red Cell Distribution Width 23.8 % (11.0-16.0); White Blood Count 16.7 X10*3/uL (4.8-10.8)
[2020-03-15 20:08] LABS: Lactic Acid 1.5 mmol/L (0.5-2.0)
[2020-03-15 20:11] LABS: HCO3 VBG 25 mmol/L; PCO2 VBG 58 mmhg; PO2 VBG 48 mmhg; pH VBG 7.26 (7.32-7.43)
[2020-03-15 20:12] LABS: Base Excess VBG -2.1 mmol/L
[2020-03-15 20:14] LABS: Blood Gas Serial # 5396; Oxygen Saturation VBG 74.3 %
[2020-03-15 20:23] LABS: Anion Gap 14 (12-20); Blood Urea Nitrogen 40 mg/dL (9-16); Calcium 7.8 mg/dL (8.4-10.2); Carbon Dioxide 24 mmol/L (22-29); Chloride 101 mmol/L (96-108); Creatinine Clr Calc Pharmacy 45.6; Estimated Glomerular Filt Rate 36; Glucose Random 105 mg/dL (60-115); Potassium 4.4 mmol/l (3.3-5.1); Sodium 135 mmol/L (135-145)
[2020-03-16] VITALS (12 sets, daily range): BP systolic 103–139; BP diastolic 58–85; PULSE 90–97; RESP 18–22; TEMP 36.1–37.5; O2SAT 94–99
--- NOTE | 2020-03-16 00:28 | PC.NURSE ---
2000 Pt not on monitor at this time. Cardiac and O2 monotiring applied s/t md orders.
[2020-03-16] MEDS: Piperacillin Sodium/Tazobactam 3.375 GM in 0.9 % Sodium Chloride 50 ML IV ×4 (04:16→21:20)
[2020-03-16 06:47] LABS: Basophils Percent Auto 0.3 % (0-2); Eosinophils Absolute Auto 0.1 X10*3/uL (0.0-0.4); Monocytes Percent Auto 6.6 % (2-11)
[2020-03-16 06:50] LABS: Hematocrit 27.4 % (37-47); Imm Gran Abs Auto 0.21 X10*3/uL (0.00-0.03); Imm Gran Pct Auto 1.5 % (0.0-0.4); Lymphocytes Absolute Auto 1.1 X10*3/uL (1.2-4.9); Lymphocytes Percent Auto 7.7 % (20-40); MANUAL DIFF FLAG NO; Mean Corpuscular HGB Conc 29.2 g/dl (31.0-35.0); Mean Corpuscular Hemoglobin 24.2 pg (27.0-33.0); NRBC Pct Auto 0.7 /100WBC (0.0-0.2); Neutrophils Absolute Auto 11.9 X10*3/uL (2.0-8.3); Neutrophils Percent Auto 82.9 % (45-73); Platelet Count 173 X10*3/uL (160-400); Red Cell Distribution Width 24.1 % (11.0-16.0); White Blood Count 14.3 X10*3/uL (4.8-10.8)
[2020-03-16 07:48] LABS: Alanine Aminotransferase 1851 U/L (0-31); Albumin Level 2.8 g/dL (3.5-5.0); Alkaline Phosphatase 113 U/L (39-117); Anion Gap 16 (12-20); Aspartate Amino Transferase 3381 U/L (5-31); Bilirubin Direct 0.5 mg/dL (0.0-0.5); Bilirubin Total 0.9 mg/dL (0.0-1.0); Blood Urea Nitrogen 40 mg/dL (9-16); Calcium 7.6 mg/dL (8.4-10.2); Carbon Dioxide 21 mmol/L (22-29); Chloride 106 mmol/L (96-108); Creatinine Clr Calc Pharmacy 71.9; Estimated Glomerular Filt Rate > 60; Glucose Random 70 mg/dL (60-115); Potassium 4.5 mmol/l (3.3-5.1); Sodium 138 mmol/L (135-145)
[2020-03-16 10:11] LABS: Free T4 (Free Thyroxine) 1.19 ng/dL (0.71-1.85)
[2020-03-16] MEDS: Dextrose 5 % and 0.9 % NaCl 1,000 ML 80 ML IVCONT (11:57)
[2020-03-16 11:58] LABS: Lactate Dehydrogenase 2206 U/L (122-220)
--- NOTE | 2020-03-16 12:05 | MHC.CM.PN ---
Patient continues to be lethargic but arousable. Discharge plan is home with resumption of [facility] services. CM will continue to follow patient for discharge needs.
--- NOTE | 2020-03-16 12:29 | P.CDIC_ITS ---
CDI Concurrent Query Service Date: 03/16/20 Documentation Clarification: Please clarify if you are treating a proba ble/suspected/likely or confirmed: Metabolic Encephalopathy Toxic Encephalopathy Toxic Metabolic Encephalopathy PLEASE DO NOT DELETE/MODIFY EXISTING CONTENT Additional information is needed in order to code to the highest accuracy and appropriate Severity of Illness (SOI). Please clarify the information noted below in your progress notes and discharge summary. Risk Factors/Clinical Indicators/Treatments 59 year old female admitted with Acute blood loss anemia, GI Bleed and transfused Rapid response called on 03/15/20: patient sleepy, lethargic, obtunded. Per MD note 03/15/20: altered mentation, pinpoint pupils on exam, likely secondary to oxycodone, received Narcan with good response. CDS: Bertha Figueroa RN Contact Number: [phone] Please Review the information above and exercise your independent professional judgment in responding to the query. If you concur, pleas document in the PROGRESS NOTES and DISCHARGE SUMMARY. If you do not agree with the query, please document in the query above. THIS QUERY IS PART OF THE PERMANENT MEDICAL RECORD
[2020-03-16] MEDS: QUEtiapine Fumarate 25 MG TABLET PO (13:08)
[2020-03-16 13:12] LABS: Ammonia 65 umol/L (13-55)
[2020-03-16 13:48] LABS: HBS Num1 1.13 mIU/mL (0-7.99); HBc Num1 0.47 S/CO (0.00-0.79); HBsAGNum1 0.26 S/CO (0.00-0.99); Hepatitis A Antibody IgM 0.16 Index (0-0.79); Hepatitis B Core Antibody Nonreactive (Nonreactive); Hepatitis B Surface Antigen Negative (Negative); ~Hepatitis A Antibody IgM Nonreactive (Nonreactive); ~Hepatitis B Surface Antibody NONREACTIVE (Nonreactive)
[2020-03-16 14:00] LABS: ~HepC Num1 0.26 S/CO (0.00-0.79); ~Hepatitis C Antibody Nonreactive (Nonreactive)
--- NOTE | 2020-03-16 15:00 | P.PNIM_ITS ---
Subjective Subjective Date of Service: 03/16/20 Interval History: Seen and evaluated this morning Daughter at the bedside Patient lethargic and anxious Looks sleepy this morning, able to wake her up Denies fever or chills but reports generalized pain No other overnight events Review of Systems Review of Systems: Yes all other systems are reviewed and are negative Constitutional Constitutional: Reports no additional constitutional complaints Cardiovascular Cardiovascular: Reports dyspnea Respiratory Respiratory: Reports no additional respiratory complaints, Reports cough and Reports dyspnea Gastrointestinal Gastrointestinal: Reports no additional gastrointestinal complaints Neurologic Neurologic: Reports confusion Psychiatric Psychiatric: Reports confusion Physical Exam Vital Signs and I&O and Narrative: Vital Signs and I&O: Vital Signs Temp 98 F 03/16/20 11:02 Pulse 97 03/16/20 11:02 Resp 22 H 03/16/20 11:02 BP 117/85 03/16/20 11:02 Pulse Ox 99 03/16/20 12:00 Intake & Output 03/15/20 03/16/20 03/16/20 18:59 06:59 18:59 Intake Total 1170 / 3420 2250 / 3420 110 / 110 Output Total 2 / 2 401 / 401 Balance 1170 / 3418 2248 / 3418 -291 / -291 Urine Output (Aver age ml/kg/hr) 0.41 Intake: Intake, Oral [place] unt 120 / 270 150 / 270 60 / 60 Intake, IV Amoun t 1050 / 3150 2100 / 3150 50 / 50 Piperacillin S odium/Tazobactam 50 / 150 100 / 150 50 / 50 3.375 gm In 0. 9 % Sodium Chloride 50 ml @ 100 mls/hr IV Q6H [facility] Rx#:[id number] 0.9 % Sodium C hloride 1,000 ml 1000 / 3000 2000 / 3000 @ 999 mls/hr I VCONT .Q1H1M [facility] Rx#:[id number] Output: Output, Urine Am ount 401 / 401 Output, Stool Am ount 2 / 2 Other: Meal Refused No: Not safe, PT i s to sleepy. RN aw are Breakfast % Eate n 75% 0% Lunch % Eaten 0% -25 Dinner % Eaten 0% Number of Incont inent Voids 3 1 Number of Unmeas ured Voids 1 Number of Bowel Movements 2 Number of Incont inent Bowel 1 Movements Urine inc [place] Urine Color Yellow Yellow Stool inc Stool Color Dark Brown Stool Consistenc y Pasty Body Mass Index 28.3 Const: General: cooperative, anxious and confusion Orientation/consciousness: confusion Neck: Neck: Yes normal visual inspection and Yes full ROM Resp: Other: decrease air injury mainly over the left lung with almost full lung crackles and rhonchi Effort & Inspection: normal respiratory effort Cardio: Jugular venous distension: no JVD Heart sounds: S1 normal heart sound present and S2 normal heart sound present GI: Inspection: Yes normal to inspection Percussion: Yes normal to percussion Skin: Lesions: no lesions Rashes: no rashes Neuro: General: no focal motor deficits and confusion Extrem: General: Yes normal to inspection and Yes full ROM Objective Data Current Medications Generic Name Dose Route Start Last Admin Trade Name Freq PRN Reason Stop Dose Admin Albuterol/Ipratropium 3 ml 03/16/20 13:00 Albuterol/Iprat 2.5/0.5mg 3 Ml Ampul.Neb INHALE RQ4H WHILE AWAKE [facility] Atenolol 25 mg 03/14/20 09:00 03/16/20 08:39 Atenolol 25 Mg Tablet PO Not Given BID [facility] Protocol Docusate Sodium 100 mg 03/12/20 23:57 Docusate Sodium 100 Mg Capsule PO BEDTIME PRN Constipation Fluoxetine HCl 40 mg 03/13/20 09:00 03/16/20 08:40 Fluoxetine Hcl 20 Mg Capsule PO Not Given DAILY [facility] Hydroxychloroquine Sulfate 200 mg 03/13/20 09:00 03/16/20 08:40 Hydroxychloroquine Sulfate 200 Mg Tablet PO Not Given DAILY [facility] Piperacillin Sod/Tazobactam 50 mls @ 100 mls/hr 03/15/20 16:00 03/16/20 12:26 Sod 3.375 gm/ Sodium Chloride IV Infused Q6H [facility] Infusion Dextrose/Sodium Chloride 1,000 mls @ 80 mls/hr 03/16/20 11:15 03/16/20 11:57 D5ns IVCONT 80 mls/hr .[id number] [facility] Administration Melatonin 3 mg 03/13/20 21:00 03/15/20 22:43 Melatonin 3 Mg Tablet PO Not Given BEDTIME [facility] Omeprazole 20 mg 03/14/20 06:30 03/14/20 05:05 Omeprazole 20 Mg Capsule. PO Not Given DAILY@0630 [facility] Senna/Docusate Sodium 2 tab 03/13/20 09:00 03/16/20 08:40 Sennosides/Docusate Sodium Tablet PO Not Given DAILY [facility] Vitamin D 50 mcg 03/13/20 09:00 03/16/20 08:40 Cholecalciferol (Vitamin D3) 25 Mcg Tablet PO Not Given BID [facility] Labs CBC & Chem 7: 03/16/20 05:19 03/16/20 05:19 Labs: Laboratory Results - last 24 hr 03/12/20 03/15/20 03/15/20 18:48 19:36 19:36 MCV 81.0 MCH 24.1 L MCHC 29.8 L RDW 23.8 H Plt Count 203 MPV 10.6 Immature Gran % (Auto) Neut % (Auto) Lymph % (Auto) [place] % (Auto) Eos % (Auto) Baso % (Auto) Neut # (Auto) Lymph # (Auto) [place] # (Auto) Eos # (Auto) Baso # (Auto) Abs Immat Gran (auto) Absolute Nucleated RBC 0.050 H Nucleated RBC % (auto) 0.3 H VBG pH VBG pCO2 VBG Oxygen Liters/Min VBG pO2 VBG HCO3 VBG O2 Saturation VBG Base Excess Anion Gap 14 Estim Creat Clear Calc 45.6 Estimated GFR 36 Random Glucose 105 Lactic Acid Calcium 7.8 L Total Bilirubin Direct Bilirubin AST ALT Alkaline Phosphatase Ammonia Lactate Dehydrogenase Total Protein Albumin Free T4 Hepatitis A IgM Ab Hep Bs Antigen Hep Bs Antibody Hep B Core Total Ab Hepatitis C Ab (EIA) Crossmatch See Detail 03/15/20 03/15/20 03/16/20 19:36 20:01 05:19 MCV 83.0 MCH 24.2 L MCHC 29.2 L RDW 24.1 H Plt Count 173 MPV 11.0 Immature Gran % (Auto) 1.5 H Neut % (Auto) 82.9 H Lymph % (Auto) 7.7 L [place] % (Auto) 6.6 Eos % (Auto) 1.0 Baso % (Auto) 0.3 Neut # (Auto) 11.9 H Lymph # (Auto) 1.1 L [place] # (Auto) 1.0 Eos # (Auto) 0.1 Baso # (Auto) 0.0 Abs Immat Gran (auto) 0.21 H Absolute Nucleated RBC 0.100 H Nucleated RBC % (auto) 0.7 H VBG pH 7.26 L VBG pCO2 58 VBG Oxygen Liters/Min TNP VBG pO2 48 VBG HCO3 25 VBG O2 Saturation 74.3 VBG Base Excess -2.1 Anion Gap Estim Creat Clear Calc Estimated GFR Random Glucose Lactic Acid 1.5 Calcium Total Bilirubin Direct Bilirubin AST ALT Alkaline Phosphatase Ammonia Lactate Dehydrogenase Total Protein Albumin Free T4 Hepatitis A IgM Ab Hep Bs Antigen Hep Bs Antibody Hep B Core Total Ab Hepatitis C Ab (EIA) Crossmatch 03/16/20 03/16/20 03/16/20 05:19 12:18 12:18 MCV MCH MCHC RDW Plt Count MPV Immature Gran % (Auto) Neut % (Auto) Lymph % (Auto) [place] % (Auto) Eos % (Auto) Baso % (Auto) Neut # (Auto) Lymph # (Auto) [place] # (Auto) Eos # (Auto) Baso # (Auto) Abs Immat Gran (auto) Absolute Nucleated RBC Nucleated RBC % (auto) VBG pH VBG pCO2 VBG Oxygen Liters/Min VBG pO2 VBG HCO3 VBG O2 Saturation VBG Base Excess Anion Gap 16 Estim Creat Clear Calc 71.9 Estimated GFR > 60 Random Glucose 70 Lactic Acid Calcium 7.6 L Total Bilirubin 0.9 Direct Bilirubin 0.5 AST 3381 H ALT 1851 H Alkaline Phosphatase 113 Ammonia 65 H Lactate Dehydrogenase 2206 H Total Protein 6.0 L Albumin 2.8 L Free T4 1.19 Hepatitis A IgM Ab Nonreactive Hep Bs Antigen Negative Hep Bs Antibody NONREACTIVE Hep B Core Total Ab Nonreactive Hepatitis C Ab (EIA) Nonreactive Crossmatch Assessment and Plan (1) Sepsis: Status: Acute (2) Aspiration pneumonia: Status: Acute (3) Rheumatoid arthritis: Status: Acute (4) Acute blood loss anemia: Status: Acute (5) Obesity: Status: Acute (6) Hypertension: Status: Acute (7) Thyroiditis: Status: Acute (8) GI bleed: Status: Acute (9) Liver injury: Status: Acute Assessment and Plan: 59-year-old female presented with hematemesis, melena, found to have severe anemia with hemoglobin of 4.2 Sepsis Aspiration pneumonia Elevated WBCs, CXR and drop in blood pressure Continue IV fluid Pending blood cultures Started broad-spectrum antibiotic of Zosyn O2 supplement as needed Keep head elevated Acute liver injury transaminitis Likely secondary to hypovolemic shock secondary to hypotension event yesterday LDH elevated, ammonia elevated at 56 Will continue to monitor on daily basis Supportive measures for now Discussed with GI who recommended close monitoring only Acute inpatient delirium Likely secondary to infection, liver injury and hospital stay Recurrent re orientation avoid medications that might miss with her mind To use Seroquel as needed Acute blood loss anemia hemoglobin improved to 7.4 after 4 units PRBC. EGD and colonoscopy did not reveal source of bleed. Switch to oral PPI plan for outpatient capsule endoscopy monitor overnight, follow-up CBC thyroiditis sinus tachycardia, patient reports weight loss, patient did not show up for her endocrinology appointment 2 months ago, plan to follow up outpatient. very low TSH, normal T4 Pending T3 continue atenolol rheumatoid arthritis Plaquenil DVT PPX SCDs
[2020-03-16] MEDS: Albuterol/Iprat 2.5/0.5MG 3 ML AMPUL.NEB INHALE ×2 (15:02→19:47)
[2020-03-17] VITALS (15 sets, daily range): BP systolic 123–169; BP diastolic 66–89; PULSE 73–103; RESP 18–22; TEMP 36.6–37.6; O2SAT 93–99
--- NOTE | 2020-03-17 | CT_ITS ---
EXAMINATION: CT HEAD WITHOUT CONTRAST CLINICAL INFORMATION: Altered mental status COMPARISON: 08/15/2012 TECHNIQUE: Contiguous axial imaging was performed from the skull base to vertex without intravenous contrast. This CT examination was performed using dose optimization techniques as appropriate, variously including the following: * Automated exposure control * Adjustment of mA and/or kV according to patient size (this includes techniques or standardized protocols for targeted exams where dose is matched to indication/reason for exam; i.e. extremities or head) Use of iterative reconstruction technique DLP: 811 mGy-cm. FINDINGS: There is no evidence of acute intracranial hemorrhage or territorial infarction. No abnormal mass effect or midline shift is seen. [place] to white matter differentiation is well preserved. No extra-axial fluid collections are identified. No hydrocephalus. No significant volume loss. There is no abnormal attenuation within the brain parenchyma. The osseous structures and soft tissues are normal. The mastoid air cells and visualized portions of the paranasal sinuses are well aerated. IMPRESSION: No acute intracranial pathology.
--- NOTE | 2020-03-17 | CT_ITS ---
EXAMINATION: CT CHEST WITHOUT CONTRAST CLINICAL INFORMATION: Hypoxemia. Aspiration pneumonia. COMPARISON: CT abdomen pelvis dated 03/12/2020. Chest radiograph dated 03/15/2020. CTA chest dated 09/04/2015. TECHNIQUE: Multidetector volumetric CT imaging of the chest was done. Axial MIP volume rendering provided. Sagittal and coronal reformatted images were obtained. This CT examination was performed using dose optimization techniques as appropriate, variously including the following: *Automated exposure control *Adjustment of mA and/or kV according to patient size (this includes techniques or standardized protocols for targeted exams where dose is matched to indication/reason for exam; i.e. extremities or head) *Use of iterative reconstruction technique DLP: 3:15 mGy-cm FINDINGS: SENIOR DIRECTOR FINANCE: There is diffuse disease present in the left lower lobe. EKG leads overlie the chest. LUNGS: Assessment is slightly limited by respiratory motion. Patchy, reticular interstitial and airspace opacification is evident in the left upper lobe in the perihilar region. There is partial collapse of the left lower lobe involving the posterior and medial basilar segments. Superimposed consolidation is region is possible. Airways appear clear without intraluminal opacities to indicate aspiration. No pulmonary nodules are identified, though sensitivity is limited by the aforementioned respiratory motion. There is mild dependent atelectasis in the right lower lobe and at the right lung apex. MEDIASTINUM: The heart is borderline enlarged. Right IJ central venous catheter terminates at the cavoatrial junction. There is prominence of the central pulmonary vasculature likely due to pulmonary venous congestion. Thoracic aorta is normal in caliber. There is a 1 cm (short axis) right upper paratracheal lymph node which is unchanged in size as compared to 2016. No additional mediastinal adenopathy. Moderate-sized sliding-type hiatal hernia. PLEURA: Trace bilateral pleural effusions. No pleural masses. AXILLA: Mild prominence of axillary lymph nodes is improved as compared to the prior study with prominent fatty rsoa. Lymph nodes are otherwise unremarkable. No acute chest wall abnormalities or axillary findings. UPPER ABDOMEN: Hiatal hernia is again noted. No acute findings in the upper abdomen on these unenhanced images. OSSEOUS STRUCTURES: Mild multilevel degenerative disc disease. No aggressive osseous lesions or acute osseous findings. Glenohumeral osteoarthritis is evident bilaterally with rotator cuff muscle atrophy (right side greater than left) indicative of chronic rotator cuff tears. IMPRESSION: 1. Patchy reticular airspace disease in the left upper lobe, potentially due to pneumonia. There is partial collapse of the left lower lobe. Superimposed lower lobe consolidation is possible. Aspiration is on the differential, though felt to be less likely given the nondependent location of the upper lobe findings as well as the absence of intraluminal opacities in the airways. 2. Moderate-sized hiatal hernia. 3. Cardiomegaly with pulmonary venous congestion and trace bilateral pleural effusions.
[2020-03-17] MEDS: Dextrose 5 % and 0.9 % NaCl 1,000 ML 80 ML IVCONT (00:43)
[2020-03-17 02:21] LABS: ABG PCO2 55 mmhg (32-45); PO2 ABG 118 mmhg (83-108); Pt Ventilation O2% 3 L; pH ABG 7.33 (7.35-7.45)
[2020-03-17 02:22] LABS: Base Excess ABG 2.1; HCO3 ABG 29 mmol/l (22-26); Oxygen Saturation ABG 98.5 %
--- NOTE | 2020-03-17 03:15 | P.EN_ITS ---
Event Note Event Note: Notified by RN that patient's mental status was noted since yesterday in am to be not at baseline, confused/altered. Patient was evaluated at the bedside, somnolent, snoring, responding to painful stimuli but poorly arousable. ABG done shows PH of 7.33 with CO2 of 55. Ammonia level of 68 but patient unable to have any PO meds including lactulose. Case discussed with alcohol and drug counselor stationary fireman Dr Curry who recommends at present: 1- High flow nasal cannula 40-45 l/min 2-ABG 5 am 3- CT STAT to r/o any underlying intracranial pathology
[2020-03-17] MEDS: Piperacillin Sodium/Tazobactam 3.375 GM in 0.9 % Sodium Chloride 50 ML IV ×4 (04:25→22:01)
[2020-03-17 05:47] LABS: Pt Ventilation O2% 35%
[2020-03-17 05:56] LABS: ABG PCO2 58 mmhg (32-45); Base Excess ABG 7.5; HCO3 ABG 34 mmol/l (22-26); Oxygen Saturation ABG 97.3 %; PO2 ABG 98 mmhg (83-108); pH ABG 7.38 (7.35-7.45)
[2020-03-17 06:31] LABS: MANUAL DIFF FLAG NO
[2020-03-17 06:49] LABS: Basophils Percent Auto 0.3 % (0-2); Eosinophils Absolute Auto 0.2 X10*3/uL (0.0-0.4); Eosinophils Percent Auto 1.8 % (0-4); Hemoglobin 7.2 g/dl (12.0-16.0); Imm Gran Abs Auto 0.07 X10*3/uL (0.00-0.03); Imm Gran Pct Auto 0.8 % (0.0-0.4); Lymphocytes Percent Auto 10.7 % (20-40); Mean Corpuscular HGB Conc 28.8 g/dl (31.0-35.0); Mean Corpuscular Hemoglobin 23.7 pg (27.0-33.0); Mean Corpuscular Volume 82.2 fL (80-98); Mean Platelet Volume 10.4 fL (9.4-12.3); Monocytes Absolute Auto 0.6 X10*3/uL (0.1-1.2); Monocytes Percent Auto 6.8 % (2-11); NRBC Pct Auto 0.3 /100WBC (0.0-0.2); Neutrophils Absolute Auto 7.2 X10*3/uL (2.0-8.3); Neutrophils Percent Auto 79.6 % (45-73); Platelet Count 151 X10*3/uL (160-400); Red Blood Count 3.04 X10*6/uL (4.20-5.50); Red Cell Distribution Width 23.9 % (11.0-16.0)
[2020-03-17 07:05] LABS: Alanine Aminotransferase 1158 U/L (0-31); Albumin Level 2.5 g/dL (3.5-5.0); Alkaline Phosphatase 103 U/L (39-117); Anion Gap 6 (12-20); Aspartate Amino Transferase 949 U/L (5-31); Bilirubin Direct 0.5 mg/dL (0.0-0.5); Bilirubin Total 0.9 mg/dL (0.0-1.0); Blood Urea Nitrogen 16 mg/dL (9-16); Calcium 7.5 mg/dL (8.4-10.2); Carbon Dioxide 33 mmol/L (22-29); Chloride 107 mmol/L (96-108); Creatinine Clr Calc Pharmacy 155.3; Estimated Glomerular Filt Rate > 60; Glucose Random 126 mg/dL (60-115); Potassium 3.3 mmol/l (3.3-5.1); Sodium 143 mmol/L (135-145); Total Protein 5.3 g/dL (6.5-8.0)
--- NOTE | 2020-03-17 07:37 | PC.NURSE ---
PATIENT DROWSY/LETHARGIC, AROUSING TO STERNAL RUB. PT IS UNABLE TO ANSWER QUESTIONS OR FOLLOW DIRECTIONS. PT TOO LETHARGIC TO TAKE ANYTHING PO. HOSPITALIST NOTIFIED, ABG'S ORDERED. HOSPITALIST AT BEDSIDE TO EVALUATE. ?TRANSFER TO ICU. ORDERS IN FOR HEAD CT, HIGH FLOW OXYGEN AND REPEAT ABG'S AT 0500 - ALL COMPLETE/OBTAINED. HOSPITALIST AWARE OF RESULTS (SEE HOSPITALIST NOTE).
[2020-03-17] MEDS: Albuterol/Iprat 2.5/0.5MG 3 ML AMPUL.NEB INHALE ×4 (08:21→20:26)
[2020-03-17] MEDS: bisacodyL 10 MG SUPP.RECT PR (09:16)
[2020-03-17 10:58] LABS: Erythrocyte Sedimentation Rate 44 MM/HR (0-20)
[2020-03-17 11:39] LABS: PCO2 VBG 49 mmhg; pH VBG 7.37 (7.32-7.43)
[2020-03-17 11:40] LABS: Base Excess VBG 2.4 mmol/L; HCO3 VBG 28 mmol/L; Oxygen Saturation VBG 96.8 %; PO2 VBG 91 mmhg
[2020-03-17 11:52] LABS: Ammonia 47 umol/L (13-55)
[2020-03-17] MEDS: Doxycycline Hyclate 100 MG in 0.9 % Sodium Chloride 250 ML 250 MG IV (12:36)
--- NOTE | 2020-03-17 15:17 | P.PNIM_ITS ---
Subjective Subjective Date of Service: 03/17/20 Interval History: the patient seen and evaluated on multiple occasions during the day Lethargic, sleepy, on 30 L of oxygen maintaining good oxygen level Physical Exam Vital Signs and I&O and Narrative: Vital Signs and I&O: Vital Signs Temp 98.4 F 03/17/20 12:36 Pulse 82 03/17/20 12:36 Resp 20 03/17/20 12:36 BP 152/80 H 03/17/20 12:36 Pulse Ox 99 03/17/20 12:36 Intake & Output 03/16/20 03/17/20 03/17/20 18:59 06:59 18:59 Intake Total 110 / 1260 1150 / 1260 646.667 / 646.667 Output Total 401 / 501 100 / 501 Balance -291 / 759 1050 / 759 646.667 / 646.667 Urine Output (Aver age ml/kg/hr) 0.41 0.10 0.10 Intake: Intake, Oral Rosaura unt 60 / 60 360 / 360 Intake, IV Amoun t 50 / 1200 1150 / 1200 286.667 / 286.667 Piperacillin S odium/Tazobactam 50 / 200 150 / 200 6.667 / 6.667 3.375 gm In 0. 9 % Sodium Chloride 50 ml @ 100 mls/hr IV Q6H ON LICENSE OF [facility] Rx#:[id number] vancomycin HCL 1,500 mg In 0.9 280 / 280 % Sodium Chlor kylah 250 ml @ 186. 667 mls/hr IV ONCE ONE Rx#: [id number] Dextrose 5 % a nd 0.9 % NaCl 1, 1000 / 1000 000 ml @ 80 ml s/hr IVCONT . [id number] ON LICENSE OF [facility] Rx #:[id number] Output: Output, Urine Am ount 401 / 501 100 / 501 Other: Meal Refused No: Not safe, PT i s to sleepy. RN aw are Yes Breakfast % Eate n 0% Lunch % Eaten -25 Number of Incont inent Voids 1 1 Number of Unmeas ured Voids 1 1 Urine Purewick Urine Color Yellow Yellow Body Mass Index 28.3 Constitutional : Sleepy, lethargic, on 30 L of oxygen, in mild distress Neck : Normal inspection, Supple, central line in place Cardiovascular : RRR, S1 S2, no lower extremity edema Respiratory : decreased air entry over the left lung with crackles rhonchi Gastrointestinal: soft, lax, Normal bowel sounds, Non tender Skin : Warm/Dry, No rash Neurological : encephalopathic, No focal deficit Objective Data Current Medications Generic Name Dose Route Start Last Admin Trade Name Freq PRN Reason Stop Dose Admin Albuterol/Ipratropium 3 ml 03/17/20 12:00 03/17/20 11:18 Albuterol/Iprat 2.5/0.5mg 3 Ml Ampul.Neb INHALE 3 ml RQ4H WHILE AWAKE [facility] Administration Atenolol 25 mg 03/14/20 09:00 03/17/20 09:17 Atenolol 25 Mg Tablet PO Not Given BID ON LICENSE OF [facility] Protocol Docusate Sodium 100 mg 03/12/20 23:57 Docusate Sodium 100 Mg Capsule PO BEDTIME PRN Constipation Hydroxychloroquine Sulfate 200 mg 03/13/20 09:00 03/17/20 09:17 Hydroxychloroquine Sulfate 200 Mg Tablet PO Not Given DAILY [facility] Piperacillin Sod/Tazobactam 50 mls @ 100 mls/hr 03/15/20 16:00 03/17/20 09:20 Sod 3.375 gm/ Sodium Chloride IV 0 mls/hr Q6H [facility] Infusion Dextrose/Sodium Chloride 1,000 mls @ 80 mls/hr 03/16/20 11:15 03/17/20 00:43 D5ns IVCONT 80 mls/hr .[id number] [facility] Administration Vancomycin HCl 1,000 mg/ 270 mls @ 270 mls/hr 03/17/20 17:00 Sodium Chloride IV Q8H [facility] Doxycycline Hyclate 100 mg/ 250 mls @ 250 mls/hr 03/17/20 12:00 03/17/20 12:36 Sodium Chloride IV 250 mls/hr Q12H [facility] Administration Melatonin 3 mg 03/13/20 21:00 03/16/20 21:18 Melatonin 3 Mg Tablet PO Not Given BEDTIME [facility] Omeprazole 20 mg 03/14/20 06:30 03/14/20 05:05 Omeprazole 20 Mg Capsule.Dr PO Not Given DAILY@0630 [facility] Senna/Docusate Sodium 2 tab 03/13/20 09:00 03/17/20 09:17 Sennosides/Docusate Sodium Tablet PO Not Given DAILY ON LICENSE OF [facility] Vitamin D 50 mcg 03/13/20 09:00 03/17/20 09:17 Cholecalciferol (Vitamin D3) 25 Mcg Tablet PO Not Given BID ON LICENSE OF [facility] Labs CBC & Chem 7: 03/17/20 05:49 03/17/20 05:49 Labs: Laboratory Results - last 24 hr 03/17/20 03/17/20 03/17/20 01:02 05:43 05:49 MCV 82.2 MCH 23.7 L MCHC 28.8 L RDW 23.9 H Plt Count 151 L MPV 10.4 Immature Gran % (Auto) 0.8 H Neut % (Auto) 79.6 H Lymph % (Auto) 10.7 L Barron % (Auto) 6.8 Eos % (Auto) 1.8 Baso % (Auto) 0.3 Lymph # (Auto) 1.0 L [place] # (Auto) 0.6 Eos # (Auto) 0.2 Baso # (Auto) 0.0 Abs Immat Gran (auto) 0.07 H Absolute Neuts (auto) 7.2 Absolute Nucleated RBC 0.030 H Nucleated RBC % (auto) 0.3 H ESR ABG pH 7.33 L 7.38 ABG pCO2 55 H 58 H ABG pO2 118 H 98 ABG HCO3 29 H 34 H ABG O2 Saturation 98.5 97.3 ABG Base Excess 2.1 7.5 VBG pH VBG pCO2 VBG Oxygen Liters/Min VBG pO2 VBG HCO3 VBG O2 Saturation VBG Base Excess Oxygen Given 3 L 35% Anion Gap Estim Creat Clear Calc Estimated GFR Random Glucose Calcium Total Bilirubin Direct Bilirubin AST ALT Alkaline Phosphatase Ammonia Total Protein Albumin 03/17/20 03/17/20 03/17/20 05:49 10:00 11:27 MCV MCH MCHC RDW Plt Count MPV Immature Gran % (Auto) Neut % (Auto) Lymph % (Auto) Bar[place] % (Auto) Eos % (Auto) Baso % (Auto) Lymph # (Auto) [place] # (Auto) Eos # (Auto) Baso # (Auto) Abs Immat Gran (auto) Absolute Neuts (auto) Absolute Nucleated RBC Nucleated RBC % (auto) ESR 44 H ABG pH ABG pCO2 ABG pO2 ABG HCO3 ABG O2 Saturation ABG Base Excess VBG pH VBG pCO2 VBG Oxygen Liters/Min VBG pO2 VBG HCO3 VBG O2 Saturation VBG Base Excess Oxygen Given Anion Gap 6 L Estim Creat Clear Calc 155.3 Estimated GFR > 60 Random Glucose 126 H D Calcium 7.5 L Total Bilirubin 0.9 Direct Bilirubin 0.5 AST 949 H ALT 1158 H Alkaline Phosphatase 103 Ammonia 47 Total Protein 5.3 L Albumin 2.5 L 03/17/20 11:27 MCV MCH MCHC RDW Plt Count MPV Immature Gran % (Auto) Neut % (Auto) Lymph % (Auto) [place] % (Auto) Eos % (Auto) Baso % (Auto) Lymph # (Auto) [place] # (Auto) Eos # (Auto) Baso # (Auto) Abs Immat Gran (auto) Absolute Neuts (auto) Absolute Nucleated RBC Nucleated RBC % (auto) ESR ABG pH ABG pCO2 ABG pO2 ABG HCO3 ABG O2 Saturation ABG Base Excess VBG pH 7.37 VBG pCO2 49 VBG Oxygen Liters/Min TNP VBG pO2 91 VBG HCO3 28 VBG O2 Saturation 96.8 VBG Base Excess 2.4 Oxygen Given Anion Gap Estim Creat Clear Calc Estimated GFR Random Glucose Calcium Total Bilirubin Direct Bilirubin AST ALT Alkaline Phosphatase Ammonia Total Protein Albumin Microbiology Microbiology Results: Microbiology 03/16/20 12:18 Blood - Venous Blood Culture - Preliminary No growth after 24 hours. 03/16/20 12:18 Blood - Venous Blood Culture - Preliminary No growth after 24 hours. Assessment and Plan (1) Aspiration pneumonia: Status: Acute (2) Sepsis: Status: Acute (3) Acute blood loss anemia: Status: Acute (4) Liver injury: Status: Acute (5) Acute respiratory failure with hypoxia: Status: Acute Assessment and Plan: [address] [address] Hospitalist - Progress Note Signed Patient: Maxwell Mcdonald#: [id number] : 1960Acct:[id number] Age/Sex: 59 / FADM Date: 03/12/20 Loc: [id number] of Service:03/12/[address]: Ariela Norris MD cc: ~ Subjective Subjective Date of Service: 03/16/20 Interval History: Seen and evaluated this morning Daughter at the bedside Patient lethargic and anxious Looks sleepy this morning, able to wake her up Denies fever or chills but reports generalized pain No other overnight events Review of Systems Review of Systems: Yes all other systems are reviewed and are negative Constitutional Constitutional: Reports no additional constitutional complaints Cardiovascular Cardiovascular: Reports dyspnea Respiratory Respiratory: Reports no additional respiratory complaints, Reports cough and Reports dyspnea Gastrointestinal Gastrointestinal: Reports no additional gastrointestinal complaints Neurologic Neurologic: Reports confusion Psychiatric Psychiatric: Reports confusion Physical Exam Vital Signs and I&O and Narrative: Vital Signs and I&O: Vital Signs Temp 98 F 03/16/20 11:02 Pulse 97 03/16/20 11:02 Resp 22 H 03/16/20 11:02 BP 117/85 03/16/20 11:02 Pulse Ox 99 03/16/20 12:00 Intake & Output 03/15/20 03/16/20 03/16/20 18:59 06:59 18:59 Intake Total 1170 / 3420 2250 / 3420 110 / 110 Output Total 2 / 2 401 / 401 Balance 1170 / 3418 2248 / 3418 -291 / -291 Urine Output (Aver age ml/kg/hr) 0.41 Intake: Intake, Oral Rosaura unt 120 / 270 150 / 270 60 / 60 Intake, IV Amoun t 1050 / 3150 2100 / 3150 50 / 50 Piperacillin S odium/Tazobactam 50 / 150 100 / 150 50 / 50 3.375 gm In 0. 9 % Sodium Chloride 50 ml @ 100 mls/hr IV Q6H ON LICENSE OF [facility] Rx#:[id number] 0.9 % Sodium C hloride 1,000 ml 1000 / 3000 2000 / 3000 @ 999 mls/hr I VCONT .Q1H1M ON LICENSE OF [facility] Rx#:[id number] Output: Output, Urine Am ount 401 / 401 Output, Stool Am ount 2 / 2 Other: Meal Refused No: Not safe, PT i s to sleepy. RN aw are Breakfast % Eate n 75% 0% Lunch % Eaten 0% -25 Dinner % Eaten 0% Number of Incont inent Voids 3 1 Number of Unmeas ured Voids 1 Number of Bowel Movements 2 Number of Incont inent Bowel 1 Movements Urine inc Purewick Urine Color Yellow Yellow Stool inc Stool Color Dark Brown Stool Consistenc y Pasty Body Mass Index 28.3 Const: General: cooperative, anxious and confusion Or ientation/consciousness: confusion Neck: Neck: Yes normal visual inspection and Yes full ROM Resp: Other: decrease air injury mainly over the left lung with almost full lung crackles and rhonchi Effort & Inspection: normal respiratory effort Cardio: Jugular venous distension: no JVD Heart sounds: S1 normal heart sound present and S2 normal heart sound present GI: Inspection: Yes normal to inspection Percussion: Yes normal to percussion Skin: Lesions: no lesions Rashes: no rashes Neuro: General: no focal motor deficits and confusion Extrem: General: Yes normal to inspection and Yes full ROM Objective Data Current Medications Generic Name Dose Route Start Last Admin Trade Name Freq PRN Reason Stop Dose Admin Albuterol/Ipratropium 3 ml 03/16/20 13:00 Albuterol/Iprat 2.5/0.5mg 3 Ml Ampul.Neb INHALE RQ4H WHILE AWAKE ON LICENSE OF [facility] Atenolol 25 mg 03/14/20 09:00 03/16/20 08:39 Atenolol 25 Mg Tablet PO Not Given BID ON LICENSE OF [facility] Protocol Docusate Sodium 100 mg 03/12/20 23:57 Docusate Sodium 100 Mg Capsule PO BEDTIME PRN Constipation Fluoxetine HCl 40 mg 03/13/20 09:00 03/16/20 08:40 Fluoxetine Hcl 20 Mg Capsule PO Not Given DAILY ON LICENSE OF [facility] Hydroxychloroquine Sulfate 200 mg 03/13/20 09:00 03/16/20 08:40 Hydroxychloroquine Sulfate 200 Mg Tablet PO Not Given DAILY ON LICENSE OF [facility] Piperacillin Sod/Tazobactam 50 mls @ 100 mls/hr 03/15/20 16:00 03/16/20 12:26 Sod 3.375 gm/ Sodium Chloride IV Infused Q6H ON LICENSE OF [facility] Infusion Dextrose/Sodium Chloride 1,000 mls @ 80 mls/hr 03/16/20 11:15 03/16/20 11:57 D5ns IVCONT 80 mls/hr .[id number] ON LICENSE OF [facility] Administration Melatonin 3 mg 03/13/20 21:00 03/15/20 22:43 Melatonin 3 Mg Tablet PO Not Given BEDTIME ON LICENSE OF [facility] Omeprazole 20 mg 03/14/20 06:30 03/14/20 05:05 Omeprazole 20 Mg Capsule.Dr PO Not Given DAILY@0630 ON LICENSE OF [facility] Senna/Docusate Sodium 2 tab 03/13/20 09:00 03/16/20 08:40 Sennosides/Docusate Sodium Tablet PO Not Given DAILY ON LICENSE OF [facility] Vitamin D 50 mcg 03/13/20 09:00 03/16/20 08:40 Cholecalciferol (Vitamin D3) 25 Mcg Tablet PO Not Given BID ON LICENSE OF [facility] Labs CBC & Chem 7: 03/16/20 05:19 document embedded image 03/16/20 05:19 document embedded image Labs:Laboratory Results - last 24 hr 03/12/20 03/15/20 03/15/20 18:48 19:36 19:36 MCV 81.0 MCH 24.1 L MCHC 29.8 L RDW 23.8 H Plt Count 203 MPV 10.6 Immature Gran % (Auto) Neut % (Auto) Lymph % (Auto) [place] % (Auto) Eos % (Auto) Baso % (Auto) Neut # (Auto) Lymph # (Auto) [place] # (Auto) Eos # (Auto) Baso # (Auto) Abs Immat Gran (auto) Absolute Nucleated RBC 0.050 H Nucleated RBC % (auto) 0.3 H VBG pH VBG pCO2 VBG Oxygen Liters/Min VBG pO2 VBG HCO3 VBG O2 Saturation VBG Base Excess Anion Gap 14 Estim Creat Clear Calc 45.6 Estimated GFR 36 Random Glucose 105 Lactic Acid Calcium 7.8 L Total Bilirubin Direct Bilirubin AST ALT Alkaline Phosphatase Ammonia Lactate Dehydrogenase Total Protein Albumin Free T4 Hepatitis A IgM Ab Hep Bs Antigen Hep Bs Antibody Hep B Core Total Ab Hepatitis C Ab (EIA) Crossmatch See Detail 03/15/20 03/15/20 03/16/20 19:36 20:01 05:19 MCV 83.0 MCH 24.2 L MCHC 29.2 L RDW 24.1 H Plt Count 173 MPV 11.0 Immature Gran % (Auto) 1.5 H Neut % (Auto) 82.9 H Lymph % (Auto) 7.7 L [place] % (Auto) 6.6 Eos % (Auto) 1.0 Baso % (Auto) 0.3 Neut # (Auto) 11.9 H Lymph # (Auto) 1.1 L [place] # (Auto) 1.0 Eos # (Auto) 0.1 Baso # (Auto) 0.0 Abs Immat Gran (auto) 0.21 H Absolute Nucleated RBC 0.100 H Nucleated RBC % (auto) 0.7 H VBG pH 7.26 L VBG pCO2 58 VBG Oxygen Liters/Min TNP VBG pO2 48 VBG HCO3 25 VBG O2 Saturation 74.3 VBG Base Excess -2.1 Anion Gap Estim Creat Clear Calc Estimated GFR Random Glucose Lactic Acid 1.5 Calcium Total Bilirubin Direct Bilirubin AST ALT Alkaline Phosphatase Ammonia Lactate Dehydrogenase Total Protein Albumin Free T4 Hepatitis A IgM Ab Hep Bs Antigen Hep Bs Antibody Hep B Core Total Ab Hepatitis C Ab (EIA) Crossmatch 03/16/20 03/16/20 03/16/20 05:19 12:18 12:18 MCV MCH MCHC RDW Plt Count MPV Immature Gran % (Auto) Neut % (Auto) Lymph % (Auto) [place] % (Auto) Eos % (Auto) Baso % (Auto) Neut # (Auto) Lymph # (Auto) [place] # (Auto) Eos # (Auto) Baso # (Auto) Abs Immat Gran (auto) Absolute Nucleated RBC Nucleated RBC % (auto) VBG pH VBG pCO2 VBG Oxygen Liters/Min VBG pO2 VBG HCO3 VBG O2 Saturation VBG Base Excess Anion Gap 16 Estim Creat Clear Calc 71.9 Estimated GFR > 60 Random Glucose 70 Lactic Acid Calcium 7.6 L Total Bilirubin 0.9 Direct Bilirubin 0.5 AST 3381 H ALT 1851 H Alkaline Phosphatase 113 Ammonia 65 H Lactate Dehydrogenase 2206 H Total Protein 6.0 L Albumin 2.8 L Free T4 1.19 Hepatitis A IgM Ab Nonreactive Hep Bs Antigen Negative Hep Bs Antibody NONREACTIVE Hep B Core Total Ab Nonreactive Hepatitis C Ab (EIA) Nonreactive Crossmatch Assessment and Plan (1) Sepsis: Status: Acute (2) Aspiration pneumonia: Status: Acute (3) Rheumatoid arthritis: Status: Acute (4) Acute blood loss anemia: Status: Acute (5) Obesity: Status: Acute (6) Hypertension: Status: Acute (7) Thyroiditis: Status: Acute (8) GI bleed: Status: Acute (9) Liver injury: Status: Acute Assessment and Plan: 59-year-old female presented with hematemesis, melena, found to have severe anemia with hemoglobin of 4.2 Sepsis acute hypoxic respiratory failure Aspiration pneumonia Oxygen level dropped to 70s requiring high-flow oxygen of 30 L improvedWBCs, CXR and Mental status changes Continue IV fluid Pending blood cultures continue broad-spectrum antibiotic of Zosyn to add vancomycin and doxycycline O2 supplement as needed Keep head elevated To get infectious disease consult To get pulmonology evaluation Acute liver injury transaminitis Likely secondary to hypovolemic shock secondary to hypotension event during the admission LDH elevated transaminitis improving,Ammonia improved 47 Will continue to monitor on daily basis Supportive measures for now Discussed with GI who recommended close monitoring only Acute inpatient delirium Likely secondary to infection, liver injury and hospital stay Recurrent re orientation avoid medications that might miss with her mind To use Seroquel as needed Acute blood loss anemia hemoglobin improved to 7.4 after 4 units PRBC. EGD and colonoscopy did not reveal source of bleed. Switch to oral PPI plan for outpatient capsule endoscopy monitor overnight, follow-up CBC thyroiditis sinus tachycardia, patient reports weight loss, patient did not show up for her endocrinology appointment 2 months ago, plan to follow up outpatient. very low TSH, normal free T4 Pending Free T3 continue atenolol rheumatoid arthritis patient on Enbrel which was held Continue Plaquenil ESR elevated at 40 DVT PPX SCDs
[2020-03-17] MEDS: vancomycin HCL 1,000 MG in 0.9 % Sodium Chloride 250 ML 270 MG IV (18:41)
[2020-03-17 21:26] LABS: Triiodothyronine T3 Free 3.4 pg/mL (2.3-4.2)
[2020-03-17] MEDS: Morphine Sulfate 2 MG/ML CARTRIDGE 0.5 MG IVPUSH (21:59)
[2020-03-18] VITALS (15 sets, daily range): BP systolic 122–142; BP diastolic 55–82; PULSE 69–93; RESP 18–20; TEMP 35.7–37.2; O2SAT 94–100
[2020-03-18] MEDS: Doxycycline Hyclate 100 MG in 0.9 % Sodium Chloride 250 ML 250 MG IV ×2 (01:27→10:51)
[2020-03-18] MEDS: vancomycin HCL 1,000 MG in 0.9 % Sodium Chloride 250 ML 270 MG IV (01:32)
[2020-03-18] MEDS: Dextrose 5 % and 0.9 % NaCl 1,000 ML 60 ML IVCONT (01:36)
[2020-03-18] MEDS: Piperacillin Sodium/Tazobactam 3.375 GM in 0.9 % Sodium Chloride 50 ML IV ×4 (04:16→21:32)
[2020-03-18 06:41] LABS: MANUAL DIFF FLAG NO
[2020-03-18 06:56] LABS: INTERNATIONAL NORM RATIO 1.7 (0.9-1.1); Prothrombin Time 20.4 SEC (10.8-13.0)
[2020-03-18 07:00] LABS: Triiodothyronine T3 Free 4.1 pg/mL (2.3-4.2)
[2020-03-18 07:03] LABS: Basophils Percent Auto 0.5 % (0-2); Eosinophils Absolute Auto 0.6 X10*3/uL (0.0-0.4); Eosinophils Percent Auto 7.2 % (0-4); Hematocrit 28.4 % (37-47); Hemoglobin 8.2 g/dl (12.0-16.0); Imm Gran Abs Auto 0.05 X10*3/uL (0.00-0.03); Imm Gran Pct Auto 0.6 % (0.0-0.4); Lymphocytes Percent Auto 12.9 % (20-40); Mean Corpuscular HGB Conc 28.9 g/dl (31.0-35.0); Mean Corpuscular Hemoglobin 23.6 pg (27.0-33.0); Mean Corpuscular Volume 81.6 fL (80-98); Mean Platelet Volume 10.4 fL (9.4-12.3); Monocytes Absolute Auto 0.7 X10*3/uL (0.1-1.2); Monocytes Percent Auto 8.9 % (2-11); Neutrophils Absolute Auto 5.6 X10*3/uL (2.0-8.3); Neutrophils Percent Auto 69.9 % (45-73); Platelet Count 172 X10*3/uL (160-400); Red Blood Count 3.48 X10*6/uL (4.20-5.50); Red Cell Distribution Width 22.7 % (11.0-16.0)
[2020-03-18 07:49] LABS: Calcium 7.4 mg/dL (8.4-10.2); Creatinine Clr Calc Pharmacy 179.9; Estimated Glomerular Filt Rate > 60; Glucose Random 107 mg/dL (60-115)
[2020-03-18] MEDS: Albuterol/Iprat 2.5/0.5MG 3 ML AMPUL.NEB INHALE ×4 (07:52→19:52)
[2020-03-18 08:08] LABS: Anion Gap 8 (12-20); Blood Urea Nitrogen 5 mg/dL (9-16); Carbon Dioxide 33 mmol/L (22-29); Chloride 104 mmol/L (96-108); Potassium 2.8 mmol/l (3.3-5.1); Sodium 142 mmol/L (135-145)
[2020-03-18 09:04] LABS: Alanine Aminotransferase 763 U/L (0-31); Albumin Level 2.4 g/dL (3.5-5.0); Alkaline Phosphatase 102 U/L (39-117); Aspartate Amino Transferase 273 U/L (5-31); Bilirubin Direct 0.7 mg/dL (0.0-0.5); Bilirubin Total 1.1 mg/dL (0.0-1.0); Total Protein 5.1 g/dL (6.5-8.0)
--- NOTE | 2020-03-18 09:32 | PM.EVENT ---
Event Note Event Note: Notified by RN that patient's mental status was noted since yesterday in am to be not at baseline, confused/altered. Patient was evaluated at the bedside, somnolent, snoring, responding to painful stimuli but poorly arousable. ABG done shows PH of 7.33 with CO2 of 55. Ammonia level of 68 but patient unable to have any PO meds including lactulose. Case discussed with other sports official distribution operation supervisor Dr Curry who recommends at present: 1- High flow nasal cannula 40-45 l/min 2-ABG 5 am 3- CT STAT to r/o any underlying intracranial pathology 03/18/20 I reviewed the case and examined the pat. this AM , discussed with staff . Complete note is dictated . A: Pneumonia, Lt. Lung , most likely Aspiration type . Acute Resp. distress , with severe Hypoxemia . P: Aree with current treatment , with Broad spectrum ABs and High flow O2 . If mental status deteriorates further or if Resp. status deteriorates , pt . may need intubation , and Vent . support . will reccommend doing a COVID test , just to be on the safe side . MD Luis Armando
--- NOTE | 2020-03-18 09:40 | PM.PNPUL ---
Subjective Subjective Principal diagnosis: Pneumonia, Respiratory Distress . Interval history: This patient is seen by me this morning at the request of hospitalist because of extensive pneumonia and acute respiratory distress. Patient has been febrile, with some shortness of breath, change in mental status, and requires high-flow oxygen at present 40 L/minute. Recent history is reviewed and initially this patient was admitted with severe anemia secondary to GI bleeding. Patient underwent endoscopy, Anemia treated with to transfusion of packed cells current hematocrit 28. CT scan of the abdomen on admission showed that her lung bases were clear. subsequent CT scan of the chest has shown extensive rounded opacities in the left upper lobe and also consolidative infiltrate of the left lower lobe. this clinical picture seems to be consistent with aspiration pneumonia. patient is being treated with combination of 0 IV vancomycin and Zosyn. she continues to be in a state of acute respiratory distress requiring high-flow oxygen. Objective Data Labs CBC & Chem 7: 03/18/20 05:24 03/18/20 05:24 Labs: Laboratory Results - last 24 hr 03/16/20 03/17/20 03/17/20 05:19 10:00 10:00 WBC RBC Hgb Hct MCV MCH MCHC RDW Plt Count MPV Immature Gran % (Auto) Neut % (Auto) Lymph % (Auto) [place] % (Auto) Eos % (Auto) Baso % (Auto) Lymph # (Auto) [place] # (Auto) Eos # (Auto) Baso # (Auto) Abs Immat Gran (auto) Absolute Neuts (auto) Absolute Nucleated RBC Nucleated RBC % (auto) ESR 44 H PT INR VBG pH VBG pCO2 VBG Oxygen Liters/Min VBG pO2 VBG HCO3 VBG O2 Saturation VBG Base Excess Sodium Potassium Chloride Carbon Dioxide Anion Gap BUN Creatinine Estim Creat Clear Calc Estimated GFR Random Glucose Calcium Total Bilirubin Direct Bilirubin AST ALT Alkaline Phosphatase Ammonia Total Protein Albumin Free T3 3.4 4.1 Blood Type Antibody Screen Antibody Identification Crossmatch ([facility]) 03/17/20 03/17/20 03/17/20 11:27 11:27 19:14 WBC RBC Hgb Hct MCV MCH MCHC RDW Plt Count MPV Immature Gran % (Auto) Neut % (Auto) Lymph % (Auto) [place] % (Auto) Eos % (Auto) Baso % (Auto) Lymph # (Auto) [place] # (Auto) Eos # (Auto) Baso # (Auto) Abs Immat Gran (auto) Absolute Neuts (auto) Absolute Nucleated RBC Nucleated RBC % (auto) ESR PT INR VBG pH 7.37 VBG pCO2 49 VBG Oxygen Liters/Min TNP VBG pO2 91 VBG HCO3 28 VBG O2 Saturation 96.8 VBG Base Excess 2.4 Sodium Potassium Chloride Carbon Dioxide Anion Gap BUN Creatinine Estim Creat Clear Calc Estimated GFR Random Glucose Calcium Total Bilirubin Direct Bilirubin AST ALT Alkaline Phosphatase Ammonia 47 Total Protein Albumin Free T3 Blood Type O Positive Antibody Screen POSITIVE Antibody Identification Anti-K Crossmatch ([facility]) See Detail 03/18/20 03/18/20 03/18/20 05:24 05:24 05:24 WBC 8.0 RBC 3.48 L Hgb 8.2 L Hct 28.4 L MCV 81.6 MCH 23.6 L MCHC 28.9 L RDW 22.7 H Plt Count 172 MPV 10.4 Immature Gran % (Auto) 0.6 H Neut % (Auto) 69.9 Lymph % (Auto) 12.9 L [place] % (Auto) 8.9 Eos % (Auto) 7.2 H Baso % (Auto) 0.5 Lymph # (Auto) 1.0 L [place] # (Auto) 0.7 Eos # (Auto) 0.6 H Baso # (Auto) 0.0 Abs Immat Gran (auto) 0.05 H Absolute Neuts (auto) 5.6 Absolute Nucleated RBC 0.000 Nucleated RBC % (auto) 0.0 ESR PT 20.4 H INR 1.7 H VBG pH VBG pCO2 VBG Oxygen Liters/Min VBG pO2 VBG HCO3 VBG O2 Saturation VBG Base Excess Sodium 142 Potassium 2.8 L Chloride 104 Carbon Dioxide 33 H Anion Gap 8 L BUN 5 L D Creatinine 0.38 L Estim Creat Clear Calc 179.9 Estimated GFR > 60 Random Glucose 107 Calcium 7.4 L Total Bilirubin 1.1 H Direct Bilirubin 0.7 H AST 273 H ALT 763 H Alkaline Phosphatase 102 Ammonia Total Protein 5.1 L Albumin 2.4 L Free T3 Blood Type Antibody Screen Antibody Identification Crossmatch ([facility]) Microbiology Microbiology Results: Microbiology 03/16/20 12:18 Blood - Venous Blood Culture - Preliminary No growth after 24 hours. 03/16/20 12:18 Blood - Venous Blood Culture - Preliminary No growth after 24 hours. Physical Exam Vital Signs and I&O and Narrative: Vital Signs and I&O: Vital Signs Temp 96.3 F L 03/18/20 08:00 Pulse 75 03/18/20 08:00 Resp 20 03/18/20 08:00 BP 142/82 H 03/18/20 08:00 Pulse Ox 100 03/18/20 08:00 Intake & Output 03/17/20 03/18/20 03/18/20 18:59 06:59 18:59 Intake Total 1942.500 / 2832.50 0 890 / 2832.500 350 / 350 Output Total 2105 / 2105 Balance 1938.500 / 726.500 -1212 / 726.500 350 / 350 Urine Output (Aver age ml/kg/hr) 0.00 2.13 2.13 Intake: Intake, Oral Rosaura unt 360 / 360 Intake (Blood Pr oduct) Amount 0 / 0 350 / 350 Red Blood Cell s ([id number]) Unit 0 / 0 350 / 350 [id number] Intake, IV Amoun t 1582.500 / 2472.50 0 890 / 2472.500 Doxycycline Hy clate 100 mg In 0 245.833 / 495.833 250 / 495.833 .9 % Sodium Ch loride 250 ml @ 250 mls/hr IV Q12H [facility] Rx#: [id number] Piperacillin S odium/Tazobactam 56.667 / 156.667 100 / 156.667 3.375 gm In 0. 9 % Sodium Chloride 50 ml @ 100 mls/hr IV Q6H [facility] Rx#:[id number] vancomycin HCL 1,000 mg In 0.9 540 / 540 % Sodium Chlor kylah 250 ml @ 270 mls/hr IV Q8H [facility] Rx#: [id number] vancomycin HCL 1,500 mg In 0.9 280 / 280 % Sodium Chlor kylah 250 ml @ 186. 667 mls/hr IV ONCE ONE Rx#: [id number] Dextrose 5 % a nd 0.9 % NaCl 1, 1000 / 1000 000 ml @ 60 ml s/hr IVCONT . [id number] [facility] Rx #:[id number] Output: Output, Urine Am ount 2 / 2 Output, Stool Am ount 2 / 4 2 / 4 Output, Urine Am ount (Catheter) 2099 Urethral 2099 Other: Meal Refused Yes Yes Number of Incont inent Voids 2 Number of Bowel Movements 2 Number of Incont inent Bowel 2 Movements Number of Bowel Movement 2 Diapers Urine Color Yellow Yellow Stool Bedpan Stool Color Green Brown Stool Consistenc y Liquid Liquid Body Mass Index 28.3 Const: Other: The patient is delirious, oropharynx could not be examined, chest auscultation reveals distant breath sounds, there are crepitations over the whole left chest. no wheezes. General: confusion Orientation/consciousness: confusion Neuro: General: confusion
[2020-03-18] MEDS: vancomycin HCL 1,000 MG in 0.9 % Sodium Chloride 250 ML 250 MG IV ×2 (10:03→17:13)
[2020-03-18] MEDS: Potassium Chloride/H20 10 MEQ/100 ML PIGGYBACK 100 MEQ IV ×4 (10:54→15:05)
[2020-03-18] MEDS: Lactulose 20 GM/30 ML SOLUTION PO ×2 (10:56→21:33)
[2020-03-18 10:58] LABS: SARS COV2 PCR INHOUSE NEGATIVE (Negative)
--- NOTE | 2020-03-18 13:22 | MHC.CM.PN ---
Patient is still on high flow O2, mentation is clearing. Discharge plan is home with resumption of [facility] services. CM will continue to follow for discharge needs.
--- NOTE | 2020-03-18 13:31 | MHC.CM.PN ---
CM met with patient and dtr at the bedside and able to get choices for STR. 1st [facility], 2nf is B[facility] Thompson, 3rd Eric Bonilla. Referrals made via allscripts. CM will continue to follow for discharge needs.
--- NOTE | 2020-03-18 15:57 | HO.PM.IMPN ---
Subjective Subjective Interval History: the patient seen and evaluated on multiple occasions during the day Lethargic, sleepy, on 30 L of oxygen maintaining good oxygen level Neurologic Neurologic: Reports confusion Psychiatric Psychiatric: Reports confusion Physical Exam Vital Signs and I&O and Narrative: Vital Signs and I&O: Vital Signs Temp 98.3 F 03/18/20 15:34 Pulse 85 03/18/20 15:34 Resp 20 03/18/20 15:34 BP 122/68 03/18/20 15:34 Pulse Ox 99 03/18/20 15:34 Intake & Output 03/17/20 03/18/20 03/18/20 18:59 06:59 18:59 Intake Total 1942.500 / 2832.50 0 890 / 2832.500 2510 / 2510 Output Total 2105 2102 / 2106 1300 / 1300 Balance 1938.500 / 726.500 -1212 / 694.656 1825 / 1210 Urine Output (Aver age ml/kg/hr) 0.00 2.13 1.32 Intake: Intake, Oral [place] unt 360 / 360 240 / 240 Intake (Blood Pr oduct) Amount 0 / 0 350 / 350 Red Blood Cell s (E0382) Unit 0 / 0 350 / 350 [id number] Intake, IV Amoun t 1582.500 / 2472.50 0 890 / 2472.500 1920 / 1920 Doxycycline Hy clate 100 mg In 0 245.833 / 495.833 250 / 495.833 250 / 250 .9 % Sodium Ch loride 250 ml @ 250 mls/hr IV Q12H [facility] Rx#: [id number] Piperacillin S odium/Tazobactam 56.667 / 156.667 100 / 156.667 100 / 100 3.375 gm In 0. 9 % Sodium Chloride 50 ml @ 100 mls/hr IV Q6H [facility] Rx#:[id number] Potassium Chlo ride/H20 10 meq 300 / 300 In 100 ml @ 10 0 mls/hr IV Q1H [facility] Rx#:[id number] vancomycin HCL 1,000 mg In 0.9 540 / 540 270 / 270 % Sodium Chlor kylah 250 ml @ 270 mls/hr IV Q8H [facility] Rx#: [id number] vancomycin HCL 1,500 mg In 0.9 280 / 280 % Sodium Chlor kylah 250 ml @ 186. 667 mls/hr IV ONCE ONE Rx#: [id number] Dextrose 5 % a nd 0.9 % NaCl 1, 1000 / 1000 1000 / 1000 000 ml @ 60 ml s/hr IVCONT . [id number] [facility] Rx #:[id number] Output: Output, Urine Am ount 2 / 2 Output, Stool Am ount 2 / 4 2 / 4 Output, Urine Am ount (Catheter) 2099 / 1300 Urethral 2099 Other: Meal Refused Yes Yes Lunch % Eaten 25% Number of Incont inent Voids 2 Number of Bowel Movements 2 1 Number of Incont inent Bowel 2 1 Movements Number of Bowel Movement 2 Diapers Urine HAGEN Urine Color Yellow Yellow Yellow Stool Bedpan Bedpan Stool Color Green Brown Brown Stool Consistenc y Liquid Liquid Liquid Body Mass Index 28.3 Const: General: cooperative, anxious, confusion, lethargic and patient obtunded Nutritional Appearance: well nourished Orientation/consciousness: confusion, patient obtunded and lethargic Limitations: altered mental status Eyes: Pupils: Equal, round and reactive pupils present and Pinpoint pupils Neck: Neck: Yes normal visual inspection and Yes full ROM Resp: Other: decrease air injury mainly over the left lung with almost full lung crackles and rhonchi Effort & Inspection: normal respiratory effort Auscultation: clear to auscultation bilaterally Cardio: Jugular venous distension: no JVD Heart sounds: S1 normal heart sound present and S2 normal heart sound present GI: Inspection: Yes normal to inspection Percussion: Yes normal to percussion Skin: Lesions: no lesions Rashes: no rashes Neuro: General: no focal motor deficits, confusion and patient obtunded Cranial nerves: Yes Equal, round and reactive pupils present and Yes Nystagmus not present Extrem: General: Yes normal to inspection and Yes full ROM Objective Data Current Medications Generic Name Dose Route Start Last Admin Trade Name Freq PRN Reason Stop Dose Admin Albuterol/Ipratropium 3 ml 03/17/20 12:00 03/18/20 15:22 Albuterol/Iprat 2.5/0.5mg 3 Ml Ampul.Neb INHALE 3 ml RQ4H WHILE AWAKE [facility] Administration Atenolol 25 mg 03/14/20 09:00 03/18/20 10:10 Atenolol 25 Mg Tablet PO Not Given BID [facility] Protocol Docusate Sodium 100 mg 03/12/20 23:57 Docusate Sodium 100 Mg Capsule PO BEDTIME PRN Constipation Piperacillin Sod/Tazobactam 50 mls @ 100 mls/hr 03/15/20 16:00 03/18/20 15:39 Sod 3.375 gm/ Sodium Chloride IV Infused Q6H [facility] Infusion Vancomycin HCl 1,000 mg/ 270 mls @ 270 mls/hr 03/17/20 17:00 03/18/20 11:46 Sodium Chloride IV Infused Q8H [facility] Infusion Doxycycline Hyclate 100 mg/ 250 mls @ 250 mls/hr 03/17/20 12:00 03/18/20 12:21 Sodium Chloride IV Infused Q12H [facility] Infusion Lactulose 20 gm 03/18/20 10:20 03/18/20 10:56 Lactulose 20 Gm/30 Ml Solution PO 20 gm BID [facility] Administration Melatonin 3 mg 03/13/20 21:00 03/17/20 22:09 Melatonin 3 Mg Tablet PO Not Given BEDTIME [facility] Omeprazole 20 mg 03/14/20 06:30 03/14/20 05:05 Omeprazole 20 Mg Capsule.Dr PO Not Given DAILY@0630 [facility] Senna/Docusate Sodium 2 tab 03/13/20 09:00 03/18/20 10:11 Sennosides/Docusate Sodium Tablet PO Not Given DAILY [facility] Vitamin D 50 mcg 03/13/20 09:00 03/18/20 10:11 Cholecalciferol (Vitamin D3) 25 Mcg Tablet PO Not Given BID [facility] Labs CBC & Chem 7: 03/18/20 05:24 03/18/20 05:24 Labs: Laboratory Results - last 24 hr 03/16/20 03/17/20 03/17/20 05:19 10:00 19:14 MCV MCH MCHC RDW Plt Count MPV Immature Gran % (Auto) Neut % (Auto) Lymph % (Auto) [place] % (Auto) Eos % (Auto) Baso % (Auto) Lymph # (Auto) [place] # (Auto) Eos # (Auto) Baso # (Auto) Abs Immat Gran (auto) Absolute Neuts (auto) Absolute Nucleated RBC Nucleated RBC % (auto) PT INR Anion Gap Estim Creat Clear Calc Estimated GFR Random Glucose Calcium Total Bilirubin Direct Bilirubin AST ALT Alkaline Phosphatase Total Protein Albumin Free T3 3.4 4.1 Vancomycin Trough Coronavirus (PCR) Blood Type O Positive Antibody Screen POSITIVE Antibody Identification Anti-K Crossmatch ([facility]) See Detail 03/18/20 03/18/20 03/18/20 05:24 05:24 05:24 MCV 81.6 MCH 23.6 L MCHC 28.9 L RDW 22.7 H Plt Count 172 MPV 10.4 Immature Gran % (Auto) 0.6 H Neut % (Auto) 69.9 Lymph % (Auto) 12.9 L [place] % (Auto) 8.9 Eos % (Auto) 7.2 H Baso % (Auto) 0.5 Lymph # (Auto) 1.0 L [place] # (Auto) 0.7 Eos # (Auto) 0.6 H Baso # (Auto) 0.0 Abs Immat Gran (auto) 0.05 H Absolute Neuts (auto) 5.6 Absolute Nucleated RBC 0.000 Nucleated RBC % (auto) 0.0 PT 20.4 H INR 1.7 H Anion Gap 8 L Estim Creat Clear Calc 179.9 Estimated GFR > 60 Random Glucose 107 Calcium 7.4 L Total Bilirubin 1.1 H Direct Bilirubin 0.7 H AST 273 H ALT 763 H Alkaline Phosphatase 102 Total Protein 5.1 L Albumin 2.4 L Free T3 Vancomycin Trough Coronavirus (PCR) Blood Type Antibody Screen Antibody Identification Crossmatch ([facility]) 03/18/20 03/18/20 06:15 09:38 MCV MCH MCHC RDW Plt Count MPV Immature Gran % (Auto) Neut % (Auto) Lymph % (Auto) [place] % (Auto) Eos % (Auto) Baso % (Auto) Lymph # (Auto) [place] # (Auto) Eos # (Auto) Baso # (Auto) Abs Immat Gran (auto) Absolute Neuts (auto) Absolute Nucleated RBC Nucleated RBC % (auto) PT INR Anion Gap Estim Creat Clear Calc Estimated GFR Random Glucose Calcium Total Bilirubin Direct Bilirubin AST ALT Alkaline Phosphatase Total Protein Albumin Free T3 Vancomycin Trough 12.8 Coronavirus (PCR) NEGATIVE Blood Type Antibody Screen Antibody Identification Crossmatch ([facility]) Microbiology Microbiology Results: Microbiology 03/16/20 12:18 Blood - Venous Blood Culture - Preliminary No growth after 48 hours. 03/16/20 12:18 Blood - Venous Blood Culture - Preliminary No growth after 48 hours. Assessment and Plan (1) Aspiration pneumonia: Problem details: continue on IV vancomycin and Zosyn even though her picture is more of the aspiration pneumonia, I suggest that just to be on the safe side we should order a COVID test. Status: Acute (2) Sepsis: Status: Acute (3) Acute blood loss anemia: Status: Acute (4) Liver injury: Status: Acute (5) Acute respiratory failure with hypoxia: Problem details: continue on high-flow oxygen at this time. if this patient has the mental status deteriorates further and respiratory distress increases she may need to be transferred to intensive care unit, she may need to be intubated and put on vent support. at present she should be watched closely. Status: Acute Assessment and Plan: [address] [address] Hospitalist - Progress Note Signed Patient: Maxwell Mcdonald#: [id number] : 1960Acct:[id number] Age/Sex: 59 / FADM Date: 03/12/20 Loc: [id number] of Service:03/12/[address]: Ariela Norris MD cc: ~ Subjective Subjective Date of Service: 03/16/20 Interval History: Seen and evaluated this morning Daughter at the bedside Patient lethargic and anxious Looks sleepy this morning, able to wake her up Denies fever or chills but reports generalized pain No other overnight events Review of Systems Review of Systems: Yes all other systems are reviewed and are negative Constitutional Constitutional: Reports no additional constitutional complaints Cardiovascular Cardiovascular: Reports dyspnea Respiratory Respiratory: Reports no additional respiratory complaints, Reports cough and Reports dyspnea Gastrointestinal Gastrointestinal: Reports no additional gastrointestinal complaints Neurologic Neurologic: Reports confusion Psychiatric Psychiatric: Reports confusion Physical Exam Vital Signs and I&O and Narrative: Vital Signs and I&O: Vital Signs Temp 98 F 03/16/20 11:02 Pulse 97 03/16/20 11:02 Resp 22 H 03/16/20 11:02 BP 117/85 03/16/20 11:02 Pulse Ox 99 03/16/20 12:00 Intake & Output 03/15/20 03/16/20 03/16/20 18:59 06:59 18:59 Intake Total 1170 / 3420 2250 / 3420 110 / 110 Output Total 2 / 2 401 / 401 Balance 1170 / 3418 2248 / 3418 -291 / -291 Urine Output (Aver age ml/kg/hr) 0.41 Intake: Intake, Oral [place] unt 120 / 270 150 / 270 60 / 60 Intake, IV Amoun t 1050 / 3150 2100 / 3150 50 / 50 Piperacillin S odium/Tazobactam 50 / 150 100 / 150 50 / 50 3.375 gm In 0. 9 % Sodium Chloride 50 ml @ 100 mls/hr IV Q6H [facility] Rx#:[id number] 0.9 % Sodium C hloride 1,000 ml 1000 / 3000 2000 / 3000 @ 999 mls/hr I VCONT .Q1H1M [facility] Rx#:[id number] Output: Output, Urine Am ount 401 / 401 Output, Stool Am ount 2 / 2 Other: Meal Refused No: Not safe, PT i s to sleepy. RN aw are Breakfast % Eate n 75% 0% Lunch % Eaten 0% -25 Dinner % Eaten 0% Number of Incont inent Voids 3 1 Number of Unmeas ured Voids 1 Number of Bowel Movements 2 Number of Incont inent Bowel 1 Movements Urine inc [place] Urine Color Yellow Yellow Stool inc Stool Color Dark Brown Stool Consistenc y Pasty Body Mass Index 28.3 Const: General: cooperative, anxious and confusion Orientation/consciousness: confusion Neck: Neck: Yes normal visual inspection and Yes full ROM Resp: Other: decrease air injury mainly over the left lung with almost full lung crackles and rhonchi Effort & Inspection: normal respiratory effort Cardio: Jugular venous distension: no JVD Heart sounds: S1 normal heart sound present and S2 normal heart sound present GI: Inspection: Yes normal to inspection Percussion: Yes normal to percussion Skin: Lesions: no lesions Rashes: no rashes Neuro: General: no focal motor deficits and confusion Extrem: General: Yes normal to inspection and Yes full ROM Objective Data Current Medications Generic Name Dose Route Start Last Admin Trade Name Freq PRN Reason Stop Dose Admin Albuterol/Ipratropium 3 ml 03/16/20 13:00 Albuterol/Iprat 2.5/0.5mg 3 Ml Ampul.Neb INHALE RQ4H WHILE AWAKE [facility] Atenolol 25 mg 03/14/20 09:00 03/16/20 08:39 Atenolol 25 Mg Tablet PO Not Given BID [facility] Protocol Docusate Sodium 100 mg 03/12/20 23:57 Docusate Sodium 100 Mg Capsule PO BEDTIME PRN Constipation Fluoxetine HCl 40 mg 03/13/20 09:00 03/16/20 08:40 Fluoxetine Hcl 20 Mg Capsule PO Not Given DAILY [facility] Hydroxychloroquine Sulfate 200 mg 03/13/20 09:00 03/16/20 08:40 Hydroxychloroquine Sulfate 200 Mg Tablet PO Not Given DAILY [facility] Piperacillin Sod/Tazobactam 50 mls @ 100 mls/hr 03/15/20 16:00 03/16/20 12:26 Sod 3.375 gm/ Sodium Chloride IV Infused Q6H [facility] Infusion Dextrose/Sodium Chloride 1,000 mls @ 80 mls/hr 03/16/20 11:15 03/16/20 11:57 D5ns IVCONT 80 mls/hr .[id number] [facility] Administration Melatonin 3 mg 03/13/20 21:00 03/15/20 22:43 Melatonin 3 Mg Tablet PO Not Given BEDTIME [facility] Omeprazole 20 mg 03/14/20 06:30 03/14/20 05:05 Omeprazole 20 Mg Capsule.Dr PO Not Given DAILY@0630 [facility] Senna/Docusate Sodium 2 tab 03/13/20 09:00 03/16/20 08:40 Sennosides/Docusate Sodium Tablet PO Not Given DAILY [facility] Vitamin D 50 mcg 03/13/20 09:00 03/16/20 08:40 Cholecalciferol (Vitamin D3) 25 Mcg Tablet PO Not Given BID [facility] Labs CBC & Chem 7: 03/16/20 05:19 document embedded image 03/16/20 05:19 document embedded image Labs:Laboratory Results - last 24 hr 03/12/20 03/15/20 03/15/20 18:48 19:36 19:36 MCV 81.0 MCH 24.1 L MCHC 29.8 L RDW 23.8 H Plt Count 203 MPV 10.6 Immature Gran % (Auto) Neut % (Auto) Lymph % (Auto) [place] % (Auto) Eos % (Auto) Baso % (Auto) Neut # (Auto) Lymph # (Auto) [place] # (Auto) Eos # (Auto) Baso # (Auto) Abs Immat Gran (auto) Absolute Nucleated RBC 0.050 H Nucleated RBC % (auto) 0.3 H VBG pH VBG pCO2 VBG Oxygen Liters/Min VBG pO2 VBG HCO3 VBG O2 Saturation VBG Base Excess Anion Gap 14 Estim Creat Clear Calc 45.6 Estimated GFR 36 Random Glucose 105 Lactic Acid Calcium 7.8 L Total Bilirubin Direct Bilirubin AST ALT Alkaline Phosphatase Ammonia Lactate Dehydrogenase Total Protein Albumin Free T4 Hepatitis A IgM Ab Hep Bs Antigen Hep Bs Antibody Hep B Core Total Ab Hepatitis C Ab (EIA) Crossmatch See Detail 03/15/20 03/15/20 03/16/20 19:36 20:01 05:19 MCV 83.0 MCH 24.2 L MCHC 29.2 L RDW 24.1 H Plt Count 173 MPV 11.0 Immature Gran % (Auto) 1.5 H Neut % (Auto) 82.9 H Lymph % (Auto) 7.7 L [place] % (Auto) 6.6 Eos % (Auto) 1.0 Baso % (Auto) 0.3 Neut # (Auto) 11.9 H Lymph # (Auto) 1.1 L [place] # (Auto) 1.0 Eos # (Auto) 0.1 Baso # (Auto) 0.0 Abs Immat Gran (auto) 0.21 H Absolute Nucleated RBC 0.100 H Nucleated RBC % (auto) 0.7 H VBG pH 7.26 L VBG pCO2 58 VBG Oxygen Liters/Min TNP VBG pO2 48 VBG HCO3 25 VBG O2 Saturation 74.3 VBG Base Excess -2.1 Anion Gap Estim Creat Clear Calc Estimated GFR Random Glucose Lactic Acid 1.5 Calcium Total Bilirubin Direct Bilirubin AST ALT Alkaline Phosphatase Ammonia Lactate Dehydrogenase Total Protein Albumin Free T4 Hepatitis A IgM Ab Hep Bs Antigen Hep Bs Antibody Hep B Core Total Ab Hepatitis C Ab (EIA) Crossmatch 03/16/20 03/16/20 03/16/20 05:19 12:18 12:18 MCV MCH MCHC RDW Plt Count MPV Immature Gran % (Auto) Neut % (Auto) Lymph % (Auto) [place] % (Auto) Eos % (Auto) Baso % (Auto) Neut # (Auto) Lymph # (Auto) [place] # (Auto) Eos # (Auto) Baso # (Auto) Abs Immat Gran (auto) Absolute Nucleated RBC Nucleated RBC % (auto) VBG pH VBG pCO2 VBG Oxygen Liters/Min VBG pO2 VBG HCO3 VBG O2 Saturation VBG Base Excess Anion Gap 16 Estim Creat Clear Calc 71.9 Estimated GFR > 60 Random Glucose 70 Lactic Acid Calcium 7.6 L Total Bilirubin 0.9 Direct Bilirubin 0.5 AST 3381 H ALT 1851 H Alkaline Phosphatase 113 Ammonia 65 H Lactate Dehydrogenase 2206 H Total Protein 6.0 L Albumin 2.8 L Free T4 1.19 Hepatitis A IgM Ab Nonreactive Hep Bs Antigen Negative Hep Bs Antibody NONREACTIVE Hep B Core Total Ab Nonreactive Hepatitis C Ab (EIA) Nonreactive Crossmatch Assessment and Plan (1) Sepsis: Status: Acute (2) Aspiration pneumonia: Status: Acute (3) Rheumatoid arthritis: Status: Acute (4) Acute blood loss anemia: Status: Acute (5) Obesity: Status: Acute (6) Hypertension: Status: Acute (7) Thyroiditis: Status: Acute (8) GI bleed: Status: Acute (9) Liver injury: Status: Acute Assessment and Plan: 59-year-old female presented with hematemesis, melena, found to have severe anemia with hemoglobin of 4.2 Sepsis acute hypoxic respiratory failure Aspiration pneumonia Oxygen level dropped to 70s requiring high-flow oxygen of 30 L improvedWBCs, CXR and Mental status changes Continue IV fluid Pending blood cultures continue broad-spectrum antibiotic of Zosyn to add vancomycin and doxycycline O2 supplement as needed Keep head elevated To get infectious disease consult To get pulmonology evaluation Acute liver injury transaminitis Likely secondary to hypovolemic shock secondary to hypotension event during the admission LDH elevated transaminitis improving,Ammonia improved 47 Will continue to monitor on daily basis Supportive measures for now Discussed with GI who recommended close monitoring only Acute inpatient delirium Likely secondary to infection, liver injury and hospital stay Recurrent re orientation avoid medications that might miss with her mind To use Seroquel as needed Acute blood loss anemia hemoglobin improved to 7.4 after 4 units PRBC. EGD and colonoscopy did not reveal source of bleed. Switch to oral PPI plan for outpatient capsule endoscopy monitor overnight, follow-up CBC thyroiditis sinus tachycardia, patient reports weight loss, patient did not show up for her endocrinology appointment 2 months ago, plan to follow up outpatient. very low TSH, normal free T4 Pending Free T3 continue atenolol rheumatoid arthritis patient on Enbrel which was held Continue Plaquenil ESR elevated at 40 DVT PPX SCDs
--- NOTE | 2020-03-18 16:05 | P.PNIM_ITS ---
Subjective Subjective Date of Service: 03/18/20 Interval History: Seen and evaluated this morning still requiring high-flow oxygen of 30 L more alert though Complain of generalized pain No reported fever, chills Still having shortness of breath and coughing No other overnight Review of Systems Review of Systems: Yes all other systems are reviewed and are negative Physical Exam Vital Signs and I&O and Narrative: Vital Signs and I&O: Vital Signs Temp 98.3 F 03/18/20 15:34 Pulse 85 03/18/20 15:34 Resp 20 03/18/20 15:34 BP 122/68 03/18/20 15:34 Pulse Ox 99 03/18/20 15:34 Intake & Output 03/17/20 03/18/20 03/18/20 18:59 06:59 18:59 Intake Total 1942.500 / 2832.50 0 890 / 2832.500 2510 / 2510 Output Total 2105 2102 / 210 1300 / 1300 Balance 1938.500 / 726.500 -1212 / 373.114 8971 / 1210 Urine Output (Aver age ml/kg/hr) 0.00 2.13 1.32 Intake: Intake, Oral Rosaura unt 360 / 360 240 / 240 Intake (Blood Pr oduct) Amount 0 / 0 350 / 350 Red Blood Cell s (E0382) Unit 0 / 0 350 / 350 [id number] Intake, IV Amoun t 1582.500 / 2472.50 0 890 / 2472.500 1920 / 1920 Doxycycline Hy clate 100 mg In 0 245.833 / 495.833 250 / 495.833 250 / 250 .9 % Sodium Ch loride 250 ml @ 250 mls/hr IV Q12H [facility] Rx#: [id number] Piperacillin S odium/Tazobactam 56.667 / 156.667 100 / 156.667 100 / 100 3.375 gm In 0. 9 % Sodium Chloride 50 ml @ 100 mls/hr IV Q6H [facility] Rx#:[id number] Potassium Chlo ride/H20 10 meq 300 / 300 In 100 ml @ 10 0 mls/hr IV Q1H [facility] Rx#:[id number] vancomycin HCL 1,000 mg In 0.9 540 / 540 270 / 270 % Sodium Chlor kylah 250 ml @ 270 mls/hr IV Q8H [facility] Rx#: [id number] vancomycin HCL 1,500 mg In 0.9 280 / 280 % Sodium Chlor kylah 250 ml @ 186. 667 mls/hr IV ONCE ONE Rx#: [id number] Dextrose 5 % a nd 0.9 % NaCl 1, 1000 / 1000 1000 / 1000 000 ml @ 60 ml s/hr IVCONT . [id number] [facility] Rx #:[id number] Output: Output, Urine Am ount 2 / 2 Output, Stool Am ount 2 / 4 2 / 4 Output, Urine Am ount (Catheter) 2099 / 1300 Urethral 2099 1300 / 1300 Other: Meal Refused Yes Yes Lunch % Eaten 25% Number of Incont inent Voids 2 Number of Bowel Movements 2 1 Number of Incont inent Bowel 2 1 Movements Number of Bowel Movement 2 Diapers Urine HAGEN Urine Color Yellow Yellow Yellow Stool Bedpan Bedpan Stool Color Green Brown Brown Stool Consistenc y Liquid Liquid Liquid Body Mass Index 28.3 Constitutional : Alert with stimulation, oriented to person, not in distress Neck : Normal inspection, Supple Cardiovascular : RRR, S1 S2, no lower extremity edema Respiratory : decreased bilateral air entry, crackles more noted on the left lung, mild crackles in the right side, Gastrointestinal: soft, lax, Normal bowel sounds, Non tender Skin : Warm/Dry, No rash Neurological : Alert & oriented x3, No focal deficit Objective Data Current Medications Generic Name Dose Route Start Last Admin Trade Name Freq PRN Reason Stop Dose Admin Albuterol/Ipratropium 3 ml 03/17/20 12:00 03/18/20 15:22 Albuterol/Iprat 2.5/0.5mg 3 Ml Ampul.Neb INHALE 3 ml RQ4H WHILE AWAKE [facility] Administration Atenolol 25 mg 03/14/20 09:00 03/18/20 10:10 Atenolol 25 Mg Tablet PO Not Given BID [facility] Protocol Docusate Sodium 100 mg 03/12/20 23:57 Docusate Sodium 100 Mg Capsule PO BEDTIME PRN Constipation Piperacillin Sod/Tazobactam 50 mls @ 100 mls/hr 03/15/20 16:00 03/18/20 15:39 Sod 3.375 gm/ Sodium Chloride IV Infused Q6H [facility] Infusion Vancomycin HCl 1,000 mg/ 270 mls @ 270 mls/hr 03/17/20 17:00 03/18/20 11:46 Sodium Chloride IV Infused Q8H [facility] Infusion Doxycycline Hyclate 100 mg/ 250 mls @ 250 mls/hr 03/17/20 12:00 03/18/20 12:21 Sodium Chloride IV Infused Q12H [facility] Infusion Lactulose 20 gm 03/18/20 10:20 03/18/20 10:56 Lactulose 20 Gm/30 Ml Solution PO 20 gm BID [facility] Administration Melatonin 3 mg 03/13/20 21:00 03/17/20 22:09 Melatonin 3 Mg Tablet PO Not Given BEDTIME [facility] Omeprazole 20 mg 03/14/20 06:30 03/14/20 05:05 Omeprazole 20 Mg Capsule.Dr PO Not Given DAILY@0630 [facility] Senna/Docusate Sodium 2 tab 03/13/20 09:00 03/18/20 10:11 Sennosides/Docusate Sodium Tablet PO Not Given DAILY [facility] Vitamin D 50 mcg 03/13/20 09:00 03/18/20 10:11 Cholecalciferol (Vitamin D3) 25 Mcg Tablet PO Not Given BID [facility] Labs CBC & Chem 7: 03/18/20 05:24 03/18/20 05:24 Labs: Laboratory Results - last 24 hr 03/16/20 03/17/20 03/17/20 05:19 10:00 19:14 MCV MCH MCHC RDW Plt Count MPV Immature Gran % (Auto) Neut % (Auto) Lymph % (Auto) [place] % (Auto) Eos % (Auto) Baso % (Auto) Lymph # (Auto) [place] # (Auto) Eos # (Auto) Baso # (Auto) Abs Immat Gran (auto) Absolute Neuts (auto) Absolute Nucleated RBC Nucleated RBC % (auto) PT INR Anion Gap Estim Creat Clear Calc Estimated GFR Random Glucose Calcium Total Bilirubin Direct Bilirubin AST ALT Alkaline Phosphatase Total Protein Albumin Free T3 3.4 4.1 Vancomycin Trough Coronavirus (PCR) Blood Type O Positive Antibody Screen POSITIVE Antibody Identification Anti-K Crossmatch (AHG) See Detail 03/18/20 03/18/20 03/18/20 05:24 05:24 05:24 MCV 81.6 MCH 23.6 L MCHC 28.9 L RDW 22.7 H Plt Count 172 MPV 10.4 Immature Gran % (Auto) 0.6 H Neut % (Auto) 69.9 Lymph % (Auto) 12.9 L [place] % (Auto) 8.9 Eos % (Auto) 7.2 H Baso % (Auto) 0.5 Lymph # (Auto) 1.0 L [place] # (Auto) 0.7 Eos # (Auto) 0.6 H Baso # (Auto) 0.0 Abs Immat Gran (auto) 0.05 H Absolute Neuts (auto) 5.6 Absolute Nucleated RBC 0.000 Nucleated RBC % (auto) 0.0 PT 20.4 H INR 1.7 H Anion Gap 8 L Estim Creat Clear Calc 179.9 Estimated GFR > 60 Random Glucose 107 Calcium 7.4 L Total Bilirubin 1.1 H Direct Bilirubin 0.7 H AST 273 H ALT 763 H Alkaline Phosphatase 102 Total Protein 5.1 L Albumin 2.4 L Free T3 Vancomycin Trough Coronavirus (PCR) Blood Type Antibody Screen Antibody Identification Crossmatch ([facility]) 03/18/20 03/18/20 06:15 09:38 MCV MCH MCHC RDW Plt Count MPV Immature Gran % (Auto) Neut % (Auto) Lymph % (Auto) [place] % (Auto) Eos % (Auto) Baso % (Auto) Lymph # (Auto) [place] # (Auto) Eos # (Auto) Baso # (Auto) Abs Immat Gran (auto) Absolute Neuts (auto) Absolute Nucleated RBC Nucleated RBC % (auto) PT INR Anion Gap Estim Creat Clear Calc Estimated GFR Random Glucose Calcium Total Bilirubin Direct Bilirubin AST ALT Alkaline Phosphatase Total Protein Albumin Free T3 Vancomycin Trough 12.8 Coronavirus (PCR) NEGATIVE Blood Type Antibody Screen Antibody Identification Crossmatch ([facility]) Microbiology Microbiology Results: Microbiology 03/16/20 12:18 Blood - Venous Blood Culture - Preliminary No growth after 48 hours. 03/16/20 12:18 Blood - Venous Blood Culture - Preliminary No growth after 48 hours. Assessment and Plan (1) Acute respiratory failure with hypoxia: Problem details: continue on high-flow oxygen at this time. if this patient has the mental status deteriorates further and respiratory distress increases she may need to be transferred to intensive care unit, she may need to be intubated and put on vent support. at present she should be watched closely. Status: Acute (2) Liver injury: Status: Acute (3) GI bleed: Status: Acute (4) Aspiration pneumonia: Problem details: continue on IV vancomycin and Zosyn even though her picture is more of the aspiration pneumonia, I suggest that just to be on the safe side we should order a COVID test. Status: Acute (5) Sepsis: Status: Acute (6) Rheumatoid arthritis: Status: Acute (7) Hypertension: Status: Acute (8) Obesity: Status: Acute Assessment and Plan: 59-year-old female presented with hematemesis, melena, found to have severe anemia with hemoglobin of 4.2 acute hypoxic respiratory failure Aspiration pneumonia still requiring high-flow oxygen of 30 L improved WBCs, CXR and Mental status changes discontinue IV fluid negative blood cultures Negative COVID test continue broad-spectrum antibiotic of Zosyn, vancomycin and doxycycline O2 supplement as needed Keep head elevated infectious disease input appreciated pulmonology input appreciated, continue current antibiotics Acute liver injury transaminitis Likely secondary to hypovolemic shock secondary to hypotension event during the admission improving Ammonia improved 47 Supportive measures for now Discussed with GI who recommended close monitoring only Acute inpatient delirium Likely secondary to infection, liver injury and hospital stay Recurrent re orientation avoid medications that might miss with her mind To use Seroquel as needed Acute blood loss anemia hemoglobin improved to 8.2 after 5 units PRBC. EGD and colonoscopy did not reveal source of bleed. oral PPI plan for outpatient capsule endoscopy monitor overnight, follow-up CBC thyroiditis sinus tachycardia, patient reports weight loss, patient did not show up for her endocrinology appointment 2 months ago, plan to follow up outpatient. very low TSH, normal free T4 Normal Free T3 continue atenolol rheumatoid arthritis patient on Enbrel which was held hold Plaquenil ESR elevated at 40 DVT PPX SCDs
--- NOTE | 2020-03-18 16:34 | P.CNID_ITS ---
History of Present Illness Data of Consult Service Date: 03/18/20 Requesting physician: Ariela Norris Primary Care Provider: Jenae Khan MD HPI Reason for consult: hemoptysis,lung infiltrates She presents to hospital with maroon hematemesis for 5 days ,less than a cup a day She has no fever or chills She has had bilateral lung infiltrates with hypoxia ,worsening She has had some diarrhea,dark as well She is COVID negative Review of Systems Neurologic: Reports confusion Psychiatric: Psychiatric: Reports confusion [facility] Past Medical History Medical History Depression Hypertension Hypothyroidism Obesity RABIA (obstructive sleep apnea) Thyroiditis Ulcer Functional capacity: independent ambulation Family History Family History (Updated 03/13/20 @ 13:28 by Dae Che MD) Other Cirrhosis Family history: reviewed and not pertinent (Patient's Mom had cirrhosis and because of UGIB in [place] Surgical History Surgical History H/O lymph node biopsy History of appendectomy Status post biopsy of uterine cervix Social History Social History Household Members: Children, Caregiver and Unknown / Unable to assess Housing: Apartment Alcohol intake: never Smoking Status: Never smoker service: No Current occupational status: previously employed and disabled 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 [place] Meds Allergies Allergy/AdvReac Type Severity Reaction Status Date / Time ibuprofen [From MOTRIN] Allergy Unknown ULCERS Verified 03/12/20 19:51 naproxen [From NAPROSYN] Allergy Unknown ULCERS Verified 03/12/20 19:51 Home Medications Medication Instructions Recorded Confirmed Type Enbrel SureClick 1 syringe SUBCUT QWEEK 03/12/20 03/12/20 History cholecalciferol (vitamin D3) 1 cap PO BID 03/12/20 03/12/20 History [Vitamin D3] docusate sodium 1 cap PO BEDTIME PRN 03/12/20 03/12/20 History ferrous sulfate 1 tab PO DAILY 03/12/20 03/12/20 History fluoxetine 2 cap PO DAILY 03/12/20 03/12/20 History hydroxychloroquine 1 tab PO DAILY 03/12/20 03/12/20 History melatonin 1 tab PO BEDTIME 03/12/20 03/12/20 History oxycodone 10 mg PO Q4-6H PRN 03/12/20 03/12/20 History pantoprazole 1 tab PO BID 03/12/20 03/12/20 History sennosides-docusate sodium 2 tab PO DAILY 03/12/20 03/12/20 History [Senexon-S] Physical Exam Vital Signs and I&O and Narrative: Vital Signs and I&O: Vital Signs Temp 98.3 F 03/18/20 15:34 Pulse 85 03/18/20 15:34 Resp 20 03/18/20 15:34 BP 122/68 03/18/20 15:34 Pulse Ox 99 03/18/20 15:34 Intake & Output 03/17/20 03/18/20 03/18/20 18:59 06:59 18:59 Intake Total 1942.500 / 2832.50 0 890 / 2832.500 2610 / 2610 Output Total 2105 2102 / 210 1300 / 1300 Balance 1938.500 / 726.500 -1212 / 334.792 0562 / 1310 Urine Output (Aver age ml/kg/hr) 0.00 2.13 1.32 Intake: Intake, Oral Rosaura unt 360 / 360 240 / 240 Intake (Blood Pr oduct) Amount 0 / 0 350 / 350 Red Blood Cell s (E0382) Unit 0 / 0 350 / 350 [id number] Intake, IV Amoun t 1582.500 / 2472.50 0 890 / 2472.500 2019 Doxycycline Hy clate 100 mg In 0 245.833 / 495.833 250 / 495.833 250 / 250 .9 % Sodium Ch loride 250 ml @ 250 mls/hr IV Q12H [facility] Rx#: [id number] Piperacillin S odium/Tazobactam 56.667 / 156.667 100 / 156.667 100 / 100 3.375 gm In 0. 9 % Sodium Chloride 50 ml @ 100 mls/hr IV Q6H [facility] Rx#:[id number] Potassium Chlo ride/H20 10 meq 400 / 400 In 100 ml @ 10 0 mls/hr IV Q1H [facility] Rx#:[id number] vancomycin HCL 1,000 mg In 0.9 540 / 540 270 / 270 % Sodium Chlor kylah 250 ml @ 270 mls/hr IV Q8H [facility] Rx#: [id number] vancomycin HCL 1,500 mg In 0.9 280 / 280 % Sodium Chlor kylah 250 ml @ 186. 667 mls/hr IV ONCE ONE Rx#: [id number] Dextrose 5 % a nd 0.9 % NaCl 1, 1000 / 1000 1000 / 1000 000 ml @ 60 ml s/hr IVCONT . [id number] [facility] Rx #:[id number] Output: Output, Urine Am ount 2 / 2 Output, Stool Am ount 2 / 4 2 / 4 Output, Urine Am ount (Catheter) 2099 / 1299 Urethral 2099 / 1299 Other: Meal Refused Yes Yes Lunch % Eaten 25% Number of Incont inent Voids 2 Number of Bowel Movements 2 1 Number of Incont inent Bowel 2 1 Movements Number of Bowel Movement 2 Diapers Urine HAGEN Urine Color Yellow Yellow Yellow Stool Bedpan Bedpan Stool Color Green Brown Brown Stool Consistenc y Liquid Liquid Liquid Body Mass Index 28.3 Const: General: confusion and ill appearing Orientation/consciousness: confusion HENMT: Head: Yes normal to inspection Eyes: General: appearance normal, both eyes and all related structures Neck: Neck: Yes no meningeal signs Resp: Effort & Inspection: labored Cardio: Rate: tachycardic GI: Inspection: Yes normal to inspection Palpation (GI): Soft to palpation Auscultation: normal bowel sounds Back/Spine/Pelvis: Thoracic/Lumbar Spine: thoracic and lumbar spine normal to inspection Skin: Rashes: no rashes Neuro: General: no meningeal signs, no focal motor deficits and confusion Cognition (Neuro): abnormal cognition Extrem: Right lower extremity: normal to inspection Assessment and Plan (1) Acute respiratory failure with hypoxia: Problem details: Status: Acute She has hemoptysis and hematemesis She likely has bacterial aspiration pneumonia Less likely atypical such as Legionella Check Legionella serologies Continue Zosyn and Doxycycline Prognosis guarded (2) Liver injury: Status: Acute (3) GI bleed: Status: Acute (4) Aspiration pneumonia: Status: Acute (5) Sepsis: Status: Acute
[2020-03-18] MEDS: Cholecalciferol (Vitamin D3) 25 MCG TABLET 50 MCG PO (21:29)
[2020-03-18] MEDS: Melatonin 3 MG TABLET PO (21:31)
[2020-03-18] MEDS: atenoloL 25 MG TABLET PO (21:31)
[2020-03-19] VITALS (13 sets, daily range): BP systolic 126–163; BP diastolic 71–87; PULSE 67–76; RESP 18–20; TEMP 36.1–37; O2SAT 96–100
[2020-03-19] MEDS: Doxycycline Hyclate 100 MG in 0.9 % Sodium Chloride 250 ML 250 MG IV ×2 (00:30→11:11)
[2020-03-19] MEDS: vancomycin HCL 1,000 MG in 0.9 % Sodium Chloride 250 ML 250 MG IV ×3 (01:04→20:07)
[2020-03-19] MEDS: Piperacillin Sodium/Tazobactam 3.375 GM in 0.9 % Sodium Chloride 50 ML IV ×4 (04:24→22:36)
[2020-03-19 07:15] LABS: MANUAL DIFF FLAG NO
[2020-03-19 07:27] LABS: Basophils Percent Auto 0.4 % (0-2); Eosinophils Absolute Auto 0.7 X10*3/uL (0.0-0.4); Eosinophils Percent Auto 8.5 % (0-4); Hematocrit 29.2 % (37-47); Hemoglobin 8.8 g/dl (12.0-16.0); Imm Gran Abs Auto 0.03 X10*3/uL (0.00-0.03); Imm Gran Pct Auto 0.4 % (0.0-0.4); Lymphocytes Absolute Auto 1.3 X10*3/uL (1.2-4.9); Lymphocytes Percent Auto 16.5 % (20-40); Mean Corpuscular HGB Conc 30.1 g/dl (31.0-35.0); Mean Corpuscular Hemoglobin 24.4 pg (27.0-33.0); Mean Corpuscular Volume 81.1 fL (80-98); Mean Platelet Volume 10.3 fL (9.4-12.3); Monocytes Absolute Auto 0.7 X10*3/uL (0.1-1.2); Neutrophils Percent Auto 65.2 % (45-73); Platelet Count 189 X10*3/uL (160-400); Red Cell Distribution Width 22.5 % (11.0-16.0); White Blood Count 7.6 X10*3/uL (4.8-10.8)
[2020-03-19 07:46] LABS: INTERNATIONAL NORM RATIO 1.5 (0.9-1.1); Prothrombin Time 17.6 SEC (10.8-13.0)
[2020-03-19 07:58] LABS: Alanine Aminotransferase 532 U/L (0-31); Albumin Level 2.5 g/dL (3.5-5.0); Alkaline Phosphatase 102 U/L (39-117); Anion Gap 10 (12-20); Aspartate Amino Transferase 98 U/L (5-31); Bilirubin Direct 0.7 mg/dL (0.0-0.5); Calcium 7.8 mg/dL (8.4-10.2); Carbon Dioxide 32 mmol/L (22-29); Chloride 105 mmol/L (96-108); Creatinine Clr Calc Pharmacy 162.7; Estimated Glomerular Filt Rate > 60; Glucose Random 86 mg/dL (60-115); Potassium 3.3 mmol/l (3.3-5.1); Sodium 144 mmol/L (135-145); Total Protein 5.5 g/dL (6.5-8.0)
[2020-03-19] MEDS: Albuterol/Iprat 2.5/0.5MG 3 ML AMPUL.NEB INHALE ×4 (08:04→19:25)
[2020-03-19 08:13] LABS: Blood Urea Nitrogen 4 mg/dL (9-16)
--- NOTE | 2020-03-19 08:34 | MHC.CM.PN ---
Patient has been medically cleared for dc to home today, no services. Second IMM addressed with Patient and the original has been given to her and a copy has been placed on the chart.
[2020-03-19] MEDS: Lactulose 20 GM/30 ML SOLUTION PO (09:51)
[2020-03-19] MEDS: atenoloL 25 MG TABLET PO ×2 (10:05→22:37)
--- NOTE | 2020-03-19 10:07 | P.PNPL_ITS ---
Subjective Subjective Principal diagnosis: Pneumonia, Respiratory Distress . Interval history: patient seen this morning for pulmonary follow-up. she is much more alert and stronger, seems to have less respiratory distress. oxygen requirement is decreasing. Objective Data Labs CBC & Chem 7: 03/19/20 05:57 03/19/20 05:57 Labs: Laboratory Results - last 24 hr 03/18/20 03/18/20 03/19/20 06:15 09:38 05:57 WBC 7.6 RBC 3.60 L Hgb 8.8 L Hct 29.2 L MCV 81.1 MCH 24.4 L MCHC 30.1 L RDW 22.5 H Plt Count 189 MPV 10.3 Immature Gran % (Auto) 0.4 Neut % (Auto) 65.2 Lymph % (Auto) 16.5 L [place] % (Auto) 9.0 Eos % (Auto) 8.5 H Baso % (Auto) 0.4 Lymph # (Auto) 1.3 [place] # (Auto) 0.7 Eos # (Auto) 0.7 H Baso # (Auto) 0.0 Abs Immat Gran (auto) 0.03 Absolute Neuts (auto) 5.0 Absolute Nucleated RBC 0.000 Nucleated RBC % (auto) 0.0 PT INR Sodium Potassium Chloride Carbon Dioxide Anion Gap BUN Creatinine Estim Creat Clear Calc Estimated GFR Random Glucose Calcium Total Bilirubin Direct Bilirubin AST ALT Alkaline Phosphatase Total Protein Albumin Vancomycin Trough 12.8 Coronavirus (PCR) NEGATIVE 03/19/20 03/19/20 05:57 05:57 WBC RBC Hgb Hct MCV MCH MCHC RDW Plt Count MPV Immature Gran % (Auto) Neut % (Auto) Lymph % (Auto) [place] % (Auto) Eos % (Auto) Baso % (Auto) Lymph # (Auto) [place] # (Auto) Eos # (Auto) Baso # (Auto) Abs Immat Gran (auto) Absolute Neuts (auto) Absolute Nucleated RBC Nucleated RBC % (auto) PT 17.6 H INR 1.5 H Sodium 144 Potassium 3.3 Chloride 105 Carbon Dioxide 32 H Anion Gap 10 L BUN 4 L Creatinine 0.42 L Estim Creat Clear Calc 162.7 Estimated GFR > 60 Random Glucose 86 Calcium 7.8 L Total Bilirubin 1.0 Direct Bilirubin 0.7 H AST 98 H ALT 532 H Alkaline Phosphatase 102 Total Protein 5.5 L Albumin 2.5 L Vancomycin Trough Coronavirus (PCR) Microbiology Microbiology Results: Microbiology 03/16/20 12:18 Blood - Venous Blood Culture - Preliminary No growth after 48 hours. 03/16/20 12:18 Blood - Venous Blood Culture - Preliminary No growth after 48 hours. Physical Exam Vital Signs: Vital Signs: Vital Signs Temp Pulse Resp BP Pulse Ox 03/19/20 08:09 20 97 03/19/20 08:00 97 F 71 20 138/76 97 03/19/20 03:51 20 03/19/20 03:37 97.3 F 71 20 135/74 100 03/19/20 00:22 20 03/18/20 23:31 98.5 F 70 20 132/59 L 97 03/18/20 21:31 69 135/72 03/18/20 19:54 98.4 F 73 20 99 03/18/20 19:50 20 03/18/20 15:34 98.3 F 85 20 122/68 99 03/18/20 15:31 20 03/18/20 11:35 96.5 F L 76 18 128/72 97 03/18/20 11:20 20 Body Mass Index 28.3 Const: Other: patient more alert and conversing, not in acute respiratory distress. General: confusion Orientation/consciousness: confusion HENMT: Other: oropharynx could not be examined, she does have high-flow nasal cannul.a in the nose Neck: Neck: Yes normal visual inspection Chest: Chest palpation & inspection: normal inspection of the chest Resp: Other: she does have breath sounds on both sides however diminished over the left lower lobe. inspiratory crepitations are heard over the left mid chest and left lower lobe area Cardio: Jugular venous distension: no JVD Rate: regular rate Rhythm: regular rhythm GI: Other: soft and nontender no palpable mass Neuro: Other: grossly within normal limits, no focal motor or sensory deficit General: confusion Psych: Other: confusion/ delirium has cleared significantly
[2020-03-19] MEDS: Cholecalciferol (Vitamin D3) 25 MCG TABLET 50 MCG PO ×2 (11:11→22:12)
[2020-03-19 12:40] LABS: MRSA Nasal PCR NEGATIVE (Negative); SA Nasal PCR POSITIVE (Negative)
--- NOTE | 2020-03-19 13:58 | MHC.CM.PN ---
CORRECTION!! DC order appeared to be in place earlier but no planned dc for today, up to this point. CM will continue to follow.
--- NOTE | 2020-03-19 14:11 | HO.PM.IMPN ---
Subjective Subjective Interval History: Seen and evaluated this morning Looks more comfortable and interactive still requiring high-flow oxygen of 30 L more alert though Complain of generalized pain No reported fever, chills Still having shortness of breath and coughing No other overnight Physical Exam Vital Signs: Vital Signs: Vital Signs Temp Pulse Resp BP Pulse Ox 03/19/20 12:14 20 03/19/20 10:05 71 138/71 03/19/20 08:09 20 97 03/19/20 08:00 97 F 71 20 138/76 97 03/19/20 03:51 20 03/19/20 03:37 97.3 F 71 20 135/74 100 03/19/20 00:22 20 03/18/20 23:31 98.5 F 70 20 132/59 L 97 03/18/20 21:31 69 135/72 03/18/20 19:54 98.4 F 73 20 99 03/18/20 19:50 20 03/18/20 15:34 98.3 F 85 20 122/68 99 03/18/20 15:31 20 Body Mass Index 28.3 Constitutional : Alert ,oriented to person, not in distress Neck : Normal inspection, Supple Cardiovascular : RRR, S1 S2, no lower extremity edema Respiratory : decreased bilateral air entry, crackles more noted on the left lung, mild crackles in the right side, Gastrointestinal: soft, lax, Normal bowel sounds, Non tender Skin : Warm/Dry, No rash Neurological : Alert & oriented x3, No focal deficit Objective Data Current Medications Generic Name Dose Route Start Last Admin Trade Name Freq PRN Reason Stop Dose Admin Albuterol/Ipratropium 3 ml 03/17/20 12:00 03/19/20 12:10 Albuterol/Iprat 2.5/0.5mg 3 Ml Ampul.Neb INHALE 3 ml RQ4H WHILE AWAKE [facility] Administration Atenolol 25 mg 03/14/20 09:00 03/19/20 10:05 Atenolol 25 Mg Tablet PO 25 mg BID [facility] Administration Protocol Docusate Sodium 100 mg 03/12/20 23:57 Docusate Sodium 100 Mg Capsule PO BEDTIME PRN Constipation Piperacillin Sod/Tazobactam 50 mls @ 100 mls/hr 03/15/20 16:00 03/19/20 11:01 Sod 3.375 gm/ Sodium Chloride IV Infused Q6H [facility] Infusion Vancomycin HCl 1,000 mg/ 270 mls @ 270 mls/hr 03/17/20 17:00 03/19/20 11:01 Sodium Chloride IV Infused Q8H [facility] Infusion Doxycycline Hyclate 100 mg/ 250 mls @ 250 mls/hr 03/17/20 12:00 03/19/20 12:11 Sodium Chloride IV Infused Q12H [facility] Infusion Lactulose 20 gm 03/18/20 10:20 03/19/20 09:51 Lactulose 20 Gm/30 Ml Solution PO 20 gm BID [facility] Administration Melatonin 3 mg 03/13/20 21:00 03/18/20 21:31 Melatonin 3 Mg Tablet PO 3 mg BEDTIME [facility] Administration Omeprazole 20 mg 03/14/20 06:30 03/14/20 05:05 Omeprazole 20 Mg Capsule.Dr PO Not Given DAILY@0630 [facility] Senna/Docusate Sodium 2 tab 03/13/20 09:00 03/19/20 10:11 Sennosides/Docusate Sodium Tablet PO Not Given DAILY [facility] Vitamin D 50 mcg 03/13/20 09:00 03/19/20 11:11 Cholecalciferol (Vitamin D3) 25 Mcg Tablet PO 50 mcg BID [facility] Administration Labs CBC & Chem 7: 03/19/20 05:57 03/19/20 05:57 Microbiology Microbiology Results: Microbiology 03/16/20 12:18 Blood - Venous Blood Culture - Preliminary No growth after 48 hours. 03/16/20 12:18 Blood - Venous Blood Culture - Preliminary No growth after 48 hours. Assessment and Plan (1) Acute respiratory failure with hypoxia: Problem details: Status: Acute (2) Liver injury: Status: Acute (3) GI bleed: Status: Acute (4) Aspiration pneumonia: Status: Acute (5) Sepsis: Status: Acute (6) Rheumatoid arthritis: Status: Acute (7) Hypertension: Status: Acute (8) Obesity: Status: Acute Assessment and Plan: 59-year-old female presented with hematemesis, melena, found to have severe anemia with hemoglobin of 4.2 acute hypoxic respiratory failure Aspiration pneumonia still requiring high-flow oxygen of 30 L, to wean down as tolerated improved WBCs, CXR and Mental status changes negative blood cultures and Covid19 continue broad-spectrum antibiotic of Zosyn, vancomycin and doxycycline O2 supplement as needed Keep head elevated infectious disease input appreciated pulmonology input appreciated, continue current antibiotics Acute liver injury transaminitis Likely secondary to hypovolemic shock secondary to hypotension event during the admission improving Ammonia improved 47 Supportive measures for now Discussed with GI who recommended close monitoring only Acute inpatient delirium Resolving secondary to infection, liver injury and hospital stay Recurrent re orientation avoid medications that might miss with her mind To use Seroquel as needed Acute blood loss anemia hemoglobin improved to 8.2 after 5 units PRBC. EGD and colonoscopy did not reveal source of bleed. oral PPI plan for outpatient capsule endoscopy monitor overnight, follow-up CBC thyroiditis sinus tachycardia, patient reports weight loss, patient did not show up for her endocrinology appointment 2 months ago, plan to follow up outpatient. very low TSH, normal free T4 Normal Free T3 continue atenolol rheumatoid arthritis patient on Enbrel which was held hold Plaquenil ESR elevated at 40 DVT PPX SCDs
[2020-03-19 16:05] LABS: Vancomycin Trough 12.8 mcg/mL (10.0-20.0)
--- NOTE | 2020-03-19 20:19 | PC.NURSE ---
Addendum entered by Leeanne Zavala RN 03/20/20 02:46: Vancomycin trough now available, low at 9.9 Dr. Hogan notified, per md ok to give this dose of vancomycin 1000 mg now. Original Note: Previous RN reported 1700 dose 1 gram vancomycin was not given due to trough still pending. This RN spoke to pharmacy, pharmacy to contact md about vanco dose. Pharmacy okayed to continue giving present vancomycin dose until trough comes back from [facility].
[2020-03-19] MEDS: Melatonin 3 MG TABLET PO (22:11)
[2020-03-19 22:47] LABS: Vancomycin Trough 9.9 mcg/mL (10.0-20.0)
[2020-03-20] VITALS (7 sets, daily range): BP systolic 122–155; BP diastolic 61–82; PULSE 63–79; RESP 18–22; TEMP 36.4–37; O2SAT 95–100
[2020-03-20] MEDS: Doxycycline Hyclate 100 MG in 0.9 % Sodium Chloride 250 ML 250 MG IV ×2 (00:01→13:03)
[2020-03-20] MEDS: vancomycin HCL 1,000 MG in 0.9 % Sodium Chloride 250 ML 250 MG IV (02:43)
[2020-03-20] MEDS: Piperacillin Sodium/Tazobactam 3.375 GM in 0.9 % Sodium Chloride 50 ML IV ×4 (04:47→21:38)
[2020-03-20 06:03] LABS: MANUAL DIFF FLAG NO
[2020-03-20 06:09] LABS: Basophils Percent Auto 0.4 % (0-2); Eosinophils Absolute Auto 0.6 X10*3/uL (0.0-0.4); Eosinophils Percent Auto 7.4 % (0-4); Hematocrit 29.3 % (37-47); Hemoglobin 8.7 g/dl (12.0-16.0); Imm Gran Abs Auto 0.03 X10*3/uL (0.00-0.03); Imm Gran Pct Auto 0.4 % (0.0-0.4); Lymphocytes Absolute Auto 1.5 X10*3/uL (1.2-4.9); Lymphocytes Percent Auto 18.3 % (20-40); Mean Corpuscular HGB Conc 29.7 g/dl (31.0-35.0); Mean Corpuscular Hemoglobin 23.9 pg (27.0-33.0); Mean Corpuscular Volume 80.5 fL (80-98); Mean Platelet Volume 10.4 fL (9.4-12.3); Monocytes Absolute Auto 0.7 X10*3/uL (0.1-1.2); Monocytes Percent Auto 8.6 % (2-11); Neutrophils Absolute Auto 5.3 X10*3/uL (2.0-8.3); Neutrophils Percent Auto 64.9 % (45-73); Platelet Count 205 X10*3/uL (160-400); Red Blood Count 3.64 X10*6/uL (4.20-5.50); Red Cell Distribution Width 22.6 % (11.0-16.0); White Blood Count 8.2 X10*3/uL (4.8-10.8)
[2020-03-20 06:16] LABS: INTERNATIONAL NORM RATIO 1.3 (0.9-1.1); Prothrombin Time 15.4 SEC (10.8-13.0)
[2020-03-20 06:45] LABS: Alanine Aminotransferase 364 U/L (0-31); Albumin Level 2.5 g/dL (3.5-5.0); Alkaline Phosphatase 97 U/L (39-117); Anion Gap 11 (12-20); Aspartate Amino Transferase 54 U/L (5-31); Bilirubin Direct 0.5 mg/dL (0.0-0.5); Blood Urea Nitrogen 4 mg/dL (9-16); Calcium 7.8 mg/dL (8.4-10.2); Carbon Dioxide 33 mmol/L (22-29); Chloride 103 mmol/L (96-108); Creatinine Clr Calc Pharmacy 162.7; Estimated Glomerular Filt Rate > 60; Glucose Random 82 mg/dL (60-115); Potassium 3.3 mmol/l (3.3-5.1); Sodium 144 mmol/L (135-145); Total Protein 5.6 g/dL (6.5-8.0)
[2020-03-20] MEDS: Albuterol/Iprat 2.5/0.5MG 3 ML AMPUL.NEB INHALE ×4 (07:41→19:15)
[2020-03-20] MEDS: Cholecalciferol (Vitamin D3) 25 MCG TABLET 50 MCG PO ×2 (08:20→21:38)
[2020-03-20] MEDS: atenoloL 25 MG TABLET PO ×2 (08:21→21:43)
--- NOTE | 2020-03-20 16:13 | P.PNIM_ITS ---
Subjective Subjective Date of Service: 03/20/20 Interval History: the patient was seen and evaluated this morning Laying in bed, feels comfortable, on nasal cannula Denies any fever, chills or shortness of breath No reported other overnight events. Review of Systems Review of Systems: Yes all other systems are reviewed and are negative Physical Exam Vital Signs: Vital Signs: Vital Signs Temp Pulse Resp BP Pulse Ox 03/20/20 15:18 98.0 F 79 18 134/78 95 03/20/20 12:00 97.6 F 63 20 145/76 H 96 03/20/20 08:00 97.9 F 74 20 155/82 H 97 03/20/20 03:45 98.6 F 72 18 122/69 100 03/19/20 23:43 98.6 F 67 18 162/72 H 98 03/19/20 22:37 76 140/78 H 03/19/20 20:00 97.8 F 73 20 163/79 H 97 Body Mass Index 28.3 Constitutional : Alert, oriented, not in distress Neck : Normal inspection, Supple Cardiovascular : RRR, S1 S2, no lower extremity edema Respiratory : Good bilateral air entry, no crackles, wheezes or rhonchi Gastrointestinal: soft, lax, Normal bowel sounds, Non tender Skin : Warm/Dry, No rash Neurological : Alert & oriented x3, No focal deficit Objective Data Current Medications Generic Name Dose Route Start Last Admin Trade Name Freq PRN Reason Stop Dose Admin Albuterol/Ipratropium 3 ml 03/17/20 12:00 03/20/20 14:58 Albuterol/Iprat 2.5/0.5mg 3 Ml Ampul.Neb INHALE 3 ml RQ4H WHILE AWAKE HAILE Administration Atenolol 25 mg 03/14/20 09:00 03/20/20 08:21 Atenolol 25 Mg Tablet PO 25 mg BID HAILE Administration Protocol Docusate Sodium 100 mg 03/12/20 23:57 Docusate Sodium 100 Mg Capsule PO BEDTIME PRN Constipation Piperacillin Sod/Tazobactam 50 mls @ 100 mls/hr 03/15/20 16:00 03/20/20 16:09 Sod 3.375 gm/ Sodium Chloride IV 100 mls/hr Q6H HAILE Administration Doxycycline Hyclate 100 mg/ 250 mls @ 250 mls/hr 03/17/20 12:00 03/20/20 14:33 Sodium Chloride IV Infused Q12H HAILE Infusion Melatonin 3 mg 03/13/20 21:00 03/19/20 22:11 Melatonin 3 Mg Tablet PO 3 mg BEDTIME HAILE Administration Omeprazole 20 mg 03/14/20 06:30 03/14/20 05:05 Omeprazole 20 Mg Capsule.Dr LALA Not Given DAILY@0630 [facility] Vitamin D 50 mcg 03/13/20 09:00 03/20/20 08:20 Cholecalciferol (Vitamin D3) 25 Mcg Tablet PO 50 mcg BID HAILE Administration Labs CBC & Chem 7: 03/20/20 04:56 03/20/20 04:56 Microbiology Microbiology Results: Microbiology 03/16/20 12:18 Blood - Venous Blood Culture - Preliminary No growth after 48 hours. 03/16/20 12:18 Blood - Venous Blood Culture - Preliminary No growth after 48 hours. Assessment and Plan (1) Acute respiratory failure with hypoxia: Problem details: Status: Acute (2) Liver injury: Status: Acute (3) Aspiration pneumonia: Status: Acute (4) GI bleed: Status: Acute (5) Sepsis: Status: Acute (6) Severe anemia: Status: Acute (7) Melena: Status: Acute (8) Rheumatoid arthritis: Status: Acute (9) Acute blood loss anemia: Status: Acute (10) Obesity: Status: Acute Assessment and Plan: 59-year-old female presented with hematemesis, melena, found to have severe anemia with hemoglobin of 4.2 acute hypoxic respiratory failure Aspiration pneumonia oxygen wean down over the last 24 hours to 3 L nasal cannula improved WBCs, CXR and Mental status changes negative blood cultures and Covid19 continue broad-spectrum antibiotic of Zosyn and doxycycline discontinue vancomycin O2 supplement as needed Keep head elevated infectious disease input appreciated pulmonology input appreciated, continue current antibiotics Acute liver injury transaminitis Likely secondary to hypovolemic shock secondary to hypotension event during the admission improving Ammonia improved Supportive measures for now Discussed with GI who recommended close monitoring only Acute inpatient delirium Resolved secondary to infection, liver injury and hospital stay Recurrent re orientation avoid medications that might miss with her mind To use Seroquel as needed Acute blood loss anemia hemoglobin improved to 8.7 after 5 units PRBC. EGD and colonoscopy did not reveal source of bleed. oral PPI plan for outpatient capsule endoscopy monitor overnight, follow-up CBC thyroiditis sinus tachycardia, patient reports weight loss, patient did not show up for her endocrinology appointment 2 months ago, plan to follow up outpatient. very low TSH, normal free T4 Normal Free T3 continue atenolol rheumatoid arthritis patient on Enbrel which was held hold Plaquenil ESR elevated at 40 DVT PPX SCDs (11) Hypertension: Status: Acute (12) Thyroiditis: Status: Acute
--- NOTE | 2020-03-20 17:49 | PC.NURSE ---
Carpio removed,patient tolerated it well,DTV#1 at midnight
[2020-03-20] MEDS: Melatonin 3 MG TABLET PO (21:38)
[2020-03-21] MEDS: Doxycycline Hyclate 100 MG in 0.9 % Sodium Chloride 250 ML 250 MG IV (00:53)
[2020-03-21] MEDS: Piperacillin Sodium/Tazobactam 3.375 GM in 0.9 % Sodium Chloride 50 ML IV ×2 (03:41→09:03)
[2020-03-21 03:50] VITALS: BP 123/68; PULSE 78; RESP 20; TEMP 37.1; O2SAT 97
[2020-03-21 07:49] VITALS: BP 125/73; PULSE 68; RESP 20; TEMP 36.9; O2SAT 95
[2020-03-21 07:50] LABS: Anion Gap 13 (12-20); Blood Urea Nitrogen 8 mg/dL (9-16); Calcium 7.9 mg/dL (8.4-10.2); Carbon Dioxide 30 mmol/L (22-29); Chloride 103 mmol/L (96-108); Creatinine Clr Calc Pharmacy 162.7; Estimated Glomerular Filt Rate > 60; Glucose Random 76 mg/dL (60-115); Potassium 3.9 mmol/l (3.3-5.1); Sodium 142 mmol/L (135-145)
[2020-03-21] MEDS: Albuterol/Iprat 2.5/0.5MG 3 ML AMPUL.NEB INHALE ×3 (07:58→15:25)
[2020-03-21 09:02] VITALS: BP 125/80; PULSE 78
[2020-03-21] MEDS: atenoloL 25 MG TABLET PO (09:02)
[2020-03-21] MEDS: Cholecalciferol (Vitamin D3) 25 MCG TABLET 50 MCG PO (09:03)
[2020-03-21 11:59] VITALS: BP 130/76; PULSE 60; RESP 18; TEMP 36.7; O2SAT 98
--- NOTE | 2020-03-21 15:19 | MHC.CM.PN ---
DC planning discussed with pt along with strategy analyst. Pt reports she feels well enough to go home and does not want to go to a STR. Pt reports she is not interested in home PT as she has had them before and they did not seem beneficial. Pt is interested in a visiting nurse but says she will not be staying at her home address due to it being a multi-level home, she will be staying wiht a family member at [address] [place] [address] in [place]. CM will make a VNA referral and request they see her there. Pt also provided an updated phone number for herself [phone]. Pt will DC to her family members home today with resumption of her [employer] services and a new VNA referral. CM attempted to contact [facility] nurse for authorization for usp services however was unable to connect. A vm message was left for the real time analyst [facility] nurse Raven with above info
--- NOTE | 2020-03-21 17:10 | PM.DS ---
DS: Providers Provider Date of admission: 03/12/20 23:04 Primary care physician: Jenae Khan MD Consults: 03/17/20 12:08 Consult to Infectious Diseases Routine Consulting Provider: Marva Welsh Reason for consultation: Sepsis, respiratory failure, asp pneumo for your kind eval. 03/17/20 15:41 Consult to Pulmonology Routine Consulting Provider: Imani Gill Reason for consultation: evaluation for respiratory failure, lobular pneumonia DS: Diagnosis Discharge Diagnosis (1) Sepsis: Status: Acute (2) Acute respiratory failure with hypoxia: Status: Acute Problem details: (3) Liver injury: Status: Acute (4) Aspiration pneumonia: Status: Acute (5) GI bleed: Status: Acute (6) Severe anemia: Status: Acute (7) Thyroiditis: Status: Acute DS: Summary Hospital Course Hospital Course: admission note HPI 59 y/o female with PMHx of Asthma, insomnia, constipation, Hypothyroidism, RA, Depression, NSTEMI and GI bleed/Anemia who presented from home due to Dizziness. Per history provided by the patient for the past 1 week has been having dizziness on and off which has been associated with one episode of pre-syncope last saturday and black stools which has been present for several months now. Patient denies any chest pain, SOB, nausea, vomiting or diarrhea. Patient reports last EGD/Colonoscopy was done 5 years ago and told it was normal . On presentation to the ED patient is found to have a hgb of 4.2, Patient gives no complaints currently. ROS as above otherwise negative. Physical exam unremarkable. Hospital course patient was admitted for acute blood loss anemia and severe anemia with hemoglobin of 4.2. She received 4 units PRBC total and hemoglobin improved to 7.8. Patient had no further bleeding. She was seen by Gastroenterology who performed EGD which was unremarkable. Next day patient had colonoscopy which also did not show obvious site of bleeding. She was transitioned back to oral PPI. She will continue oral iron. She will follow-up with Gastroenterology for possible capsule endoscopy. Hemoglobin have been stable for the rest of admission. She required an extra unit of blood transfusion during the rest of the stay. No further bleeding reported. Patient was also noted to still have thyrotoxicosis, due to previous diagnosis of thyroiditis. Her TSH is still undetectable despite being off Synthroid. Free T3 and T4 were within normal. Patient reports that she never followed up with endocrinology. She will be referred again to endocrinology and started on atenolol 25 mg p.o. b.i.d.. the patient was noticed to more difficulty breathing and started to require oxygen support. A chest x-ray was done showing infiltrate in her lung suggestive of aspiration pneumonia. She was started broad-spectrum antibiotic of vancomycin and Zosyn. Her respiratory status continued to get worse and she required high-flow oxygen at the rate 30 L. She was evaluated by infectious disease and pulmonology. Doxycycline was added to the treatment and the patient was weaned off the oxygen during the hospital stay as his respiratory status improved. She was noted to an episode of hypotension which lasted for couple of hours as she lost her IV. The next day her liver function test showed significant transaminitis which was believed to be secondary to hypotension. The liver function continue to improve during the hospital stay almost back to normal before discharge. She developed acute inpatient delirium with encephalopathy as a result of hospital stay, pneumonia which also clears during her hospital stay. Plan: To follow-up with Dr. Che office from gastroenterology for capsule endoscopy Take iron pill twice Daily Continue Augmentin for 5 more days thyroid studies were noticed to be abnormal. need to follow-up with Endocrinology for further evaluation and treatment. Time Spent with Patient Time attestation: Total time spent providing and/or coordinating discharge services: Physical Exam Vital Signs: Vital Signs: Vital Signs Temp Pulse Resp BP Pulse Ox 03/21/20 11:59 98.0 F 60 18 130/76 98 03/21/20 09:02 78 125/80 03/21/20 07:49 98.5 F 68 20 125/73 95 03/21/20 03:50 98.7 F 78 20 123/68 97 03/20/20 23:45 98.3 F 76 22 H 128/61 95 03/20/20 21:43 72 139/75 03/20/20 19:20 98.0 F 72 19 139/75 100 Body Mass Index 28.3 Constitutional : Alert, oriented, not in distress Neck : Normal inspection, Supple Cardiovascular : RRR, S1 S2, no lower extremity edema Respiratory : Good bilateral air entry, no crackles, wheezes or rhonchi Gastrointestinal: soft, lax, Normal bowel sounds, Non tender Skin : Warm/Dry, No rash Neurological : Alert & oriented x3, No focal deficit DS: Data Data Completed and Pending Completed studies during hospitalization [Text1]: Pending at discharge 03/13/20 12:42 Surgical [PTH] Routine 03/14/20 09:35 Surgical [PTH] Routine Labs on day of discharge: Labs from last 24 hours 03/21/20 03/17/20 05:59 19:14 Sodium 142 Potassium 3.9 Chloride 103 Carbon Dioxide 30 H Anion Gap 13 BUN 8 L D Creatinine 0.42 L Estim Creat Clear Calc 162.7 Estimated GFR > 60 Random Glucose 76 Calcium 7.9 L Crossmatch (AHG) See Detail Discharge Plan Discharge Patient Disposition: Home, Self-Care Referrals: [facility] [Outside] Jenae Khan MD [Primary Care Provider] - Dae Che MD [Physician] - 1 Week Tessa Charlton MD [Physician] - 1 Week (thyroiditis) Discharge Medications: New atenolol 25 mg Tablet 25 mg PO BID Qty: 60 RF: 0 amoxicillin-pot clavulanate [Augmentin] 875-125 mg tablet 1 tab PO Q12H Qty: 10 RF: 0 Continued pantoprazole 40 mg tablet,delayed release (DR/EC) 1 tab PO BID RF: 0 docusate sodium 100 mg capsule 1 cap PO BEDTIME PRN (Reason: Constipation) RF: 0 hydroxychloroquine 200 mg tablet 1 tab PO DAILY RF: 0 fluoxetine 20 mg capsule 2 cap PO DAILY RF: 0 Enbrel SureClick 50 mg/mL (1 mL) pen injector 1 syringe subcut QWEEK RF: 0 oxycodone 10 mg tablet 10 mg PO Q4-6H PRN (Reason: Pain, Moderate) RF: 0 melatonin 5 mg tablet 1 tab PO BEDTIME RF: 0 cholecalciferol (vitamin D3) [Vitamin D3] 50 mcg (2,000 unit) capsule 1 cap PO BID RF: 0 sennosides-docusate sodium [Senexon-S] 8.6-50 mg tablet 2 tab PO DAILY RF: 0 Changed ferrous sulfate 325 mg (65 mg iron) tablet 1 tab PO BID Qty: 0 RF: 0 Discharge Orders: Discharge Order (Routine); Ordered 03/21/20 Ordered By: Ariela Norris Activity on Discharge: As tolerated Patient Instructions: Colorectal Polyps (DC), Colonoscopy (DC) Discharge Date/Time: 03/21/20 15:48 Print Language: Japanese Visit Report Forms: Patient Portal Discharge page Care Plan Goals: recovery Health Concerns: anemia Plan of Treatment: You were evaluated in the hospital for gastrointestinal bleed. Received 5 units of blood. EGD and colonoscopy were done showing no source of bleeding. Your blood level has been stable since. To follow-up with Dr. Che office from gastroenterology for capsule endoscopy Take iron pill twice Daily you were noticed to lung infection as a result of aspiration. Treated with IV antibiotics and evaluated by driver service technician. We were able to wean you of the oxygen. Continue Augmentin for 5 more days Your thyroid studies were noticed to be abnormal. Your heart rate was controlled with using of atenolol. You need to follow-up with Endocrinology for further evaluation and treatment.
--- NOTE | 2020-03-22 11:21 | P.F2F_ITS ---
Service Date Service Date: 03/22/20 Reasons for Services Reason for intermediate: teach disease management Reason for physical therapy: home safety and mobility and therapeutic exercises overseeing care: Jenae Khan Homebound: Leaving the home is medically contraindicated at this time without the asist of a device and/or another person due th the listed conditions above and below. Certification: Based on the above findings, I certify that this patient is confined to the home and needs intermittent intermediate care, physical therapy and/or speech therapy, or continues to need occupational therapy. The patient is under my care, and I have initiated the establishment of the plan of care. The patient will be followed by a physician who will periodically review the plan of care.
[2020-03-22 21:36] LABS: Legionella Ag Urine Not Detected (Not Detected)
== END 2020-03-21 15:48 | disposition home or self-care (01) | DRG 377 ==
LOC: HO.ED 21:36 → HO.IMC 23:13
PROVIDERS: Internal Medicine; Internal Medicine Cardiovascular Disease; Internal Medicine Gastroenterology; Admitting Provider Internal Medicine; Emergency Provider Emergency Medicine; PCP Pediatrics; Visit Provider Student in an Organized Health Care Education/Training Program
PROC: 0DJ08ZZ Inspection of Upper Intestinal Tract, Via Natural or Artificial Opening Endoscopic (ICD-10-PCS; CPT 43235; principal; 2020-03-13 11:30)
PROC: 0DJD8ZZ Inspection of Lower Intestinal Tract, Via Natural or Artificial Opening Endoscopic (ICD-10-PCS; CPT 45378; principal; 2020-03-14 08:00)
DX: K57.31 Diverticulosis of large intestine without perforation or abscess with bleeding (principal); J69.0 Pneumonitis due to inhalation of food and vomit; G92 Toxic encephalopathy; A41.9 Sepsis, unspecified organism; J96.01 Acute respiratory failure with hypoxia; D62 Acute posthemorrhagic anemia; F05 Delirium due to known physiological condition; K29.01 Acute gastritis with bleeding; F32.9 Major depressive disorder, single episode, unspecified; E03.9 Hypothyroidism, unspecified; K21.9 Gastro-esophageal reflux disease without esophagitis; K59.00 Constipation, unspecified; M06.9 Rheumatoid arthritis, unspecified; K44.9 Diaphragmatic hernia without obstruction or gangrene; K31.7 Polyp of stomach and duodenum; E06.9 Thyroiditis, unspecified; E66.9 Obesity, unspecified; K64.8 Other hemorrhoids; R74.01 Elevation of levels of liver transaminase levels; Z20.828 Contact with and (suspected) exposure to other viral communicable diseases; Z68.28 Body mass index [BMI] 28.0-28.9, adult; Z91.19 Patient's noncompliance with other medical treatment and regimen; Z88.6 Allergy status to analgesic agent; Z79.891 Long term (current) use of opiate analgesic; Z79.899 Other long term (current) drug therapy
CPT/HCPCS: 36415; 70450; 71045; 71250; 74177; 80048; 80076; 80202; 82140; 82272; 82607; 82746; 82803; 83540; 83605; 83615; 83690; 84439; 84443; 84481; 85025; 85027; 85610; 85652; 86704; 86706; 86709; 86803; 86850; 86870; 86900; 86901; 86902; 86920; 86922; 87040; 87340; 87449; 87635; 87640; 87641; 88305; 88342; 94640; 96361; 96374; 96375; 99284; 99291; C1758; J0330; J1100; J2270; J2405; J3370; P9016

== ENCOUNTER 2020-10-07 16:35 | Emergency (ER) | payer OTHER, SELFPAY ==
[2020-10-07 17:26] VITALS: BP 119/80; PULSE 87; RESP 16; TEMP 36.6; O2SAT 94; BMI 31.1
--- NOTE | 2020-10-07 17:43 | ED.DENTAL ---
HPI - Dental/Oral General Chief complaint: Dental/Oral Stated complaint: Dental pain Time Seen by Provider: 10/07/20 17:38 History of Present Illness HPI Narrative: Patient complains of right-sided dental pain both rear tooth on the bottom as well as 2 upper molars on the right side on top, no fever no chills no difficulty breathing or swallowing Related Data Home Medications Medication Instructions Recorded Confirmed Enbrel SureClick 1 syringe SUBCUT QWEEK 03/12/20 03/12/20 cholecalciferol (vitamin D3) 1 cap PO BID 03/12/20 03/12/20 [Vitamin D3] docusate sodium 1 cap PO BEDTIME PRN 03/12/20 03/12/20 fluoxetine 2 cap PO DAILY 03/12/20 03/12/20 hydroxychloroquine 1 tab PO DAILY 03/12/20 03/12/20 melatonin 1 tab PO BEDTIME 03/12/20 03/12/20 oxycodone 10 mg PO Q4-6H PRN 03/12/20 03/12/20 pantoprazole 1 tab PO BID 03/12/20 03/12/20 sennosides-docusate sodium 2 tab PO DAILY 03/12/20 03/12/20 [Senexon-S] Previous Rx's Medication Instructions Recorded atenolol 25 mg PO BID #60 tab 03/14/20 amoxicillin-pot clavulanate 1 tab PO Q12H #10 tab 03/21/20 [Augmentin] ferrous sulfate 1 tab PO BID #0 tab 03/21/20 acetaminophen 1,000 mg PO Q8H PRN #30 tab 10/07/20 amoxicillin 500 mg PO TID 7 Days #21 cap 10/07/20 oxycodone 5 mg PO Q6H PRN #10 tab 10/07/20 Allergies Allergy/AdvReac Type Severity Reaction Status Date / Time ibuprofen [From MOTRIN] Allergy Unknown ULCERS Verified 03/12/20 19:51 naproxen [From NAPROSYN] Allergy Unknown ULCERS Verified 03/12/20 19:51 Review of Systems Review of Systems: Positive for dental pain Negatives are no fever no chills no dizziness no fainting no headache no difficulty breathing or swallowing no skin rash no ear pain or sore throat Yes all other systems are reviewed and are negative PMFSH Past Medical History Source: nursing notes reviewed Medical History Depression Hypertension Hypothyroidism Obesity RABIA (obstructive sleep apnea) Thyroiditis Ulcer Surgical History H/O lymph node biopsy History of appendectomy Status post biopsy of uterine cervix Family History Family History (Updated 03/13/20 @ 13:28 by Dae Che MD) Other Cirrhosis Social History Social History Household Members: Children, Caregiver and Unknown / Unable to assess Housing: Apartment Alcohol intake: never Smoking Status: Never smoker Advance Directives: No Advance Directives Information Provided: Yes Patient : No service: No Current occupational status: disabled 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 [place] Physical Exam Vital Signs: Vital Signs: Last Vital Signs Temp 97.8 F 10/07/20 17:26 Pulse 87 10/07/20 17:26 Resp 16 10/07/20 17:26 BP 119/80 10/07/20 17:26 Pulse Ox 94 10/07/20 17:26 Body Mass Index 31.1 General appearance no acute distress, cooperative, in O x3 The head is normocephalic atraumatic There is no facial swelling or redness The mouth exam there is dental tenderness and decayed to multiple teeth, there is no fluctuant gum abscess there is no trismus there is no swelling under the tongue there is no drooling there is no impairment of breathing or swallowing The neck is supple Respiratory no distress Extremities full range of motion x4 Skin no rash Course Course Course Narrative: Well-appearing patient, afebrile, no facial swelling, no fluctuant gum abscess, no trismus no swelling under the tongue is discharged to follow with dentist Discharge Plan Discharge Clinical Impression: Toothache, Dental caries Patient Disposition: Home, Self-Care Additional Instructions: Follow with dentist We started antibiotics Use pain medication as needed Return any time for fever, any worse condition or any concerns Prescriptions: New amoxicillin 500 mg capsule 500 mg PO TID 7 Days Qty: 21 RF: 0 acetaminophen 500 mg tablet 1,000 mg PO Q8H PRN (Reason: pain) Qty: 30 RF: 0 oxycodone 5 mg tablet 5 mg PO Q6H PRN (Reason: pain) Qty: 10 RF: 0 No Action pantoprazole 40 mg tablet,delayed release (DR/EC) 1 tab PO BID RF: 0 docusate sodium 100 mg capsule 1 cap PO BEDTIME PRN (Reason: Constipation) RF: 0 hydroxychloroquine 200 mg tablet 1 tab PO DAILY RF: 0 fluoxetine 20 mg capsule 2 cap PO DAILY RF: 0 Enbrel SureClick 50 mg/mL (1 mL) pen injector 1 syringe subcut QWEEK RF: 0 oxycodone 10 mg tablet 10 mg PO Q4-6H PRN (Reason: Pain, Moderate) RF: 0 melatonin 5 mg tablet 1 tab PO BEDTIME RF: 0 cholecalciferol (vitamin D3) [Vitamin D3] 50 mcg (2,000 unit) capsule 1 cap PO BID RF: 0 sennosides-docusate sodium [Senexon-S] 8.6-50 mg tablet 2 tab PO DAILY RF: 0 atenolol 25 mg Tablet 25 mg PO BID Qty: 60 RF: 0 amoxicillin-pot clavulanate [Augmentin] 875-125 mg tablet 1 tab PO Q12H Qty: 10 RF: 0 ferrous sulfate 325 mg (65 mg iron) tablet 1 tab PO BID Qty: 0 RF: 0 Interventions: ED Discharge Assessment Last Done: 10/07/20 18:35 Discharge Date/Time: 10/07/20 18:37
== END 2020-10-07 18:37 | disposition home or self-care (01) ==
PROVIDERS: Emergency Provider Internal Medicine; PCP Pediatrics
DX: K08.89 Other specified disorders of teeth and supporting structures (principal); K02.9 Dental caries, unspecified; I10 Essential (primary) hypertension
CPT/HCPCS: 99283

== ENCOUNTER 2021-01-03 11:49 | Inpatient (IN) | payer OTHER, SELFPAY ==
[2021-01-03] VITALS (14 sets, daily range): BP systolic 100–139; BP diastolic 2–107; PULSE 81–154; RESP 11–17; TEMP 36.6–36.8; O2SAT 75–99; BMI 27.3
--- NOTE | ~2021-01-03 | CT_ITS ---
EXAMINATION: CT GI BLEED ABDOMEN AND PELVIS WITH AND WITHOUT CONTRAST CLINICAL INFORMATION: Nausea and vomiting and diarrhea with bloody emesis and stool. Diffuse abdominal pain. COMPARISON: Previous CT of the abdomen and pelvis most recent March 29 TECHNIQUE: Axial images through the abdomen and pelvis with and without IV contrast. Patient received 80 mL Omnipaque 350 intravenous contrast. Patient dose 2226 mCi per centimeter. FINDINGS: The lung bases are clear. The liver is unremarkable. There is a gallstone in the gallbladder. There is no biliary duct dilatation. The spleen is unremarkable. Pancreas unremarkable. The adrenal glands are unremarkable. There are small stones in the upper pole of the left kidney. A small cyst in the lower pole of the left kidney. The kidneys are otherwise unremarkable. The bladder is unremarkable. Small and large bowel is unremarkable. No evidence of active GI bleeding is seen. The appendix has been removed. There is a moderate size esophageal hernia. There is question of wall thickening of the stomach versus changes due to underdistention. No ascites or adenopathy is seen. There is a small umbilical hernia containing fat. There is evidence of atherosclerotic disease. No aneurysm is seen. The uterus and adnexa are unremarkable. There is severe arthritis at both hip joints. CT/CT gi bleed abd pel wo/w con IMPRESSION: No evidence of active GI bleeding seen. Moderate size esophageal hernia. Question wall thickening of the stomach versus changes due to underdistention. Gallstone. Small left renal stones. Small left renal cyst.
[2021-01-03 12:47] LABS: MANUAL DIFF FLAG NO
[2021-01-03 12:51] LABS: Basophils Percent Auto 0.3 % (0-2); Eosinophils Absolute Auto 0.1 X10*3/uL (0.0-0.4); Eosinophils Percent Auto 1.1 % (0-4); Hemoglobin 16.2 g/dl (12.0-16.0); Imm Gran Abs Auto 0.04 X10*3/uL (0.00-0.03); Imm Gran Pct Auto 0.3 % (0.0-0.4); Lymphocytes Absolute Auto 4.1 X10*3/uL (1.2-4.9); Lymphocytes Percent Auto 34.5 % (20-40); Mean Corpuscular HGB Conc 33.1 g/dl (31.0-35.0); Mean Corpuscular Hemoglobin 30.6 pg (27.0-33.0); Mean Corpuscular Volume 92.6 fL (80-98); Mean Platelet Volume 10.4 fL (9.4-12.3); Monocytes Absolute Auto 1.2 X10*3/uL (0.1-1.2); Monocytes Percent Auto 10.5 % (2-11); Neutrophils Absolute Auto 6.3 X10*3/uL (2.0-8.3); Neutrophils Percent Auto 53.3 % (45-73); Platelet Count 245 X10*3/uL (160-400); Red Blood Count 5.29 X10*6/uL (4.20-5.50); Red Cell Distribution Width 11.7 % (11.0-16.0); White Blood Count 11.8 X10*3/uL (4.8-10.8)
--- NOTE | 2021-01-03 13:30 | ED_ITS ---
HPI - GI Bleed General Chief complaint: Abdominal Pain Stated complaint: DARK TARRY STOOLS & COFFEE GROUND VOMITING Time Seen by Provider: 01/03/21 12:34 Source: patient and EMS Mode of arrival: EMS Limitations: no limitations History of Present Illness HPI Narrative: 60-year-old female with a past medical history of gastric ulcer, GI bleed, constipation, NSTEMI, hypertension, hypothyroidism, rheumatoid arthritis, asthma, and depression presenting to the ED via EMS with complaints of coffee-ground emesis and melena since yesterday worse this morning. Patient also reports associated generalized weakness. She denies any fevers, chills, dizziness, headaches, chest pain, shortness of breath, dyspnea exertion, orthopnea, paresthesias, palpitations, back pain, dysuria, hematuria, recent travel, sick contacts, any medication changes or new medications or any other symptoms complaints or concerns at this time. MD complaint: coffee ground emesis and melena Onset (ago): day(s) (Since yesterday) Pain Consistency: constant Severity: severe Relieving factors: none Exacerbating factors: bowel movement and vomiting Context: history of GI bleed and other (Anemia) Associated symptoms: abdominal pain and nausea Treatments Prior to Arrival: none Related Data Home Medications Medication Instructions Recorded Confirmed Enbrel SureClick 1 syringe SUBCUT QWEEK 03/12/20 03/12/20 cholecalciferol (vitamin D3) 1 cap PO BID 03/12/20 03/12/20 [Vitamin D3] docusate sodium 1 cap PO BEDTIME PRN 03/12/20 03/12/20 fluoxetine 2 cap PO DAILY 03/12/20 03/12/20 oxycodone 10 mg PO Q4-6H PRN 03/12/20 03/12/20 pantoprazole 1 tab PO BID 03/12/20 03/12/20 levothyroxine 1 tab PO DAILY 01/03/21 01/03/21 nystatin 1 appl TOPICAL BID 01/03/21 01/03/21 prednisone 3 tab PO DAILY 01/03/21 01/03/21 Allergies Allergy/AdvReac Type Severity Reaction Status Date / Time ibuprofen [From MOTRIN] Allergy Unknown ULCERS Verified 03/12/20 19:51 naproxen [From NAPROSYN] Allergy Unknown ULCERS Verified 03/12/20 19:51 Review of Systems Review of Systems: Constitutional : No Weight loss, No Fever, No Chills, No Night Sweats, No Fatigue, NoMalaise ENT/Mouth: No ear pain, No sore throat, No Difficulty swallowing Cardiovascular : No Chest Pain, No SOB, No Dyspnea on Exertion, No Orthopnea, NoEdema, No Palpitations Respiratory : No Cough, No Sputum, No Wheezing, No Dyspnea Gastrointestinal : Positive Nausea, positive Vomiting, positive abdominal pain, positive Diarrhea, No blood streaked emesis, positive coffee-ground emesis, No gross hematemesis, No blood streak stool, No gross hematochezia, positive Melena Genitourinary : No irregular bleeding, No Dysuria, No Urinary Frequency, No Hematuria,No Urinary Incontinence, No Urgency, No Flank Pain Musculoskeletal : No joint pain, No Myalgias, No Joint Swelling Skin : No Skin Lesions, No rash Neuro : No Weakness, No Numbness, No Paresthesias, No Loss of Consciousness, NoDizziness, No Headache Psych : No Social Issues, Heme/Lymph: No Bruising, No Bleeding,No Lymphadenopathy Endocrine : No Polyuria, No Polydipsia, No Temperature Intolerance Yes all other systems are reviewed and are negative [facility] Past Medical History Attestation statement: The following information was validated with the patient. 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 Blood pressure hypertensive at 136/107. Heart rate tachycardic at 109. Respiration rate normal. Temperature normal. Oxygen saturation normal. Appearance: Alert. Oriented X3. No acute distress. Head: Normal external exam. Normocephalic. Eyes: PERRLA. EOMI. Conjunctiva and sclera normal. Eyelids normal. ENT: Pharynx normal. Uvula midline. Moist mucous membranes. No trismus noted. No drooling noted. No muffled voice noted. Neck: Normal inspection. Neck supple. FROM. No adenopathy. No meningeal signs. CVS: Normal heart rate and rhythm. Heart sound normal. No murmurs noted. Pulses normal throughout. Respiratory: No respiratory distress. Painless inspiration. Breath sounds normal. No wheezes/rales/rhonchi noted. Chest nontender. No accessory muscle usage noted or decreased air movement noted. Abdomen: Soft and mild tenderness bilateral upper quadrant/epigastric area. Nondistended. No guarding. No rigidity. Bowel sounds normal in all 4 quadrants. No distention noted. No organomegaly noted. No visible injury noted. No rebound tenderness. Negative Rovsing sign. Negative obturator's sign. Negative psoas sign. Negative Senior sign. Back: No CVA tenderness. Full range of motion noted. Skin: Skin warm and dry. Normal skin color. Normal skin turgor. No rashes/lesions/lacerations noted. Extremities: Extremities exhibit normal range of motion. Extremities nontender. Neuro: Oriented X 3. No motor deficit. No sensory deficit. Reflexes normal. Normal steady gait. Course Course Course Narrative: 12:40pm - 60-year-old female presenting to the ED via EMS with complaints of coffee- ground emesis and melena since yesterday worse this morning with associated generalized weakness. On exam patient is alert and oriented x3. Mildly hypertensive and tachycardic. She had a bowel movement which appeared like melena/diarrhea. Otherwise her abdomen is mildly tender in the right upper quadrant/left upper quadrant epigastric area. No guarding. Not consistent with acute abdomen. Otherwise not in any acute distress. Plan: Labs, CT GI bleed abdomen pelvis with and without contrast, blood cultures, lactic acid. Provide a L of IV fluids, 4 mg of Zofran 4 mg of morphine and re-evaluate. Reevaluation(s) Reevaluation #1: - patient with a white blood cell count 14300. Her H&H is 16.2/49.0. BUN and creatinine 43/0.48. stool occult positive. otherwise all other labs are within normal limits. - still awaiting CT scan abdomen pelvis GI bleed protocol will continue to monitor. Time: 15:27 Reevaluation #2: - repeat a H&H went 16.2/49.0 to 15.7/48.6. - CT scan abdomen and pelvis revealed chronic changes no evidence of active GI b leeding seen. Patient noted to have a moderate-sized esophageal hernia. Gallstones. Small left renal stones. Small left renal cyst. - therefore I discussed this with the patient and she reports she feels too weak to go home therefore consulted with GI at this time. Time: 16:59 Reevaluation #3: I consulted with Dr. Braun the paper processing machine helper and he reported that he would keep the patient for observation for repeat H&H, start her on a clear liquid diet and PPI. Therefore I discussed this with Dr. Fuentes and he agrees with the plan patient will be admitted. Patient understands and agrees with this plan. Time: 17:20 Additional Reevaluation(s): When I was trying the patient's EKG I noticed that the patient has 2 different EKGs the 1 in the system and the 1 that was given to the provider are different therefore at this time patient will have a troponin despite her not having any chest pain. Sign out to Gia pending troponin. If troponin is negative patient will still be admitted with the plan discussed above. MDM - GI Bleed Medical Records Attestation: I reviewed the patient's medical records. Lab Data Attestation: I reviewed the patient's lab results. Result diagrams: 01/03/21 16:45 01/03/21 13:28 Labs: Lab Results 01/03/21 01/03/21 01/03/21 Range/Units 12:39 13:27 13:28 WBC 11.8 H (4.8-10.8) X10*3/uL RBC 5.29 D (4.20-5.50) X10*6/uL Hgb 16.2 H D (12.0-16.0) g/dl Hct 49.0 H D (37-47) % MCV 92.6 (80-98) fL MCH 30.6 (27.0-33.0) pg MCHC 33.1 (31.0-35.0) g/dl RDW 11.7 (11.0-16.0) % Plt Count 245 (160-400) X10*3/uL MPV 10.4 (9.4-12.3) fL Immature Gran % (Auto) 0.3 (0.0-0.4) % Neut % (Auto) 53.3 (45-73) % Lymph % (Auto) 34.5 (20-40) % [place] % (Auto) 10.5 (2-11) % Eos % (Auto) 1.1 (0-4) % Baso % (Auto) 0.3 (0-2) % Lymph # (Auto) 4.1 (1.2-4.9) X10*3/uL [place] # (Auto) 1.2 (0.1-1.2) X10*3/uL Eos # (Auto) 0.1 (0.0-0.4) X10*3/uL Baso # (Auto) 0.0 (0.0-0.2) X10*3/uL Abs Immat Gran (auto) 0.04 H (0.00-0.03) X10*3/uL Absolute Neuts (auto) 6.3 (2.0-8.3) X10*3/uL Absolute Nucleated RBC 0.000 (0.0-0.012) X10*3/uL Nucleated RBC % (auto) 0.0 (0.0-0.2) /100WBC Sodium 137 (135-145) mmol/L Potassium 4.4 (3.3-5.1) mmol/L Chloride 106 (96-108) mmol/L Carbon Dioxide 21 L (22-29) mmol/L Anion Gap 14 (12-20) BUN 43 H D (9-16) mg/dL Creatinine 0.48 L (0.5-1.4) mg/dL Estim Creat Clear Calc 143.1 Estimated GFR > 60 Random Glucose 100 (60-115) mg/dL Lactic Acid (0.5-2.0) mmol/L Calcium 9.0 D (8.4-10.2) mg/dL Magnesium (1.6-2.6) mg/dL Total Bilirubin 0.8 (0.0-1.0) mg/dL AST 20 D (5-31) U/L ALT 19 (0-31) U/L Alkaline Phosphatase 95 (39-117) U/L Total Protein 7.3 D (6.5-8.0) g/dL Albumin 3.5 D (3.5-5.0) g/dL Lipase 46 (8-78) U/L TSH (0.32-4.0) uIU/mL Free T4 (0.71-1.85) ng/dL Stool Occult Blood POSITIVE (NEGATIVE) 01/03/21 01/03/21 01/03/21 Range/Units 13:28 13:28 13:28 WBC (4.8-10.8) X10*3/uL RBC (4.20-5.50) X10*6/uL Hgb (12.0-16.0) g/dl Hct (37-47) % MCV (80-98) fL MCH (27.0-33.0) pg MCHC (31.0-35.0) g/dl RDW (11.0-16.0) % Plt Count (160-400) X10*3/uL MPV (9.4-12.3) fL Immature Gran % (Auto) (0.0-0.4) % Neut % (Auto) (45-73) % Lymph % (Auto) (20-40) % [place] % (Auto) (2-11) % Eos % (Auto) (0-4) % Baso % (Auto) (0-2) % Lymph # (Auto) (1.2-4.9) X10*3/uL [place] # (Auto) (0.1-1.2) X10*3/uL Eos # (Auto) (0.0-0.4) X10*3/uL Baso # (Auto) (0.0-0.2) X10*3/uL Abs Immat Gran (auto) (0.00-0.03) X10*3/uL Absolute Neuts (auto) (2.0-8.3) X10*3/uL Absolute Nucleated RBC (0.0-0.012) X10*3/uL Nucleated RBC % (auto) (0.0-0.2) /100WBC Sodium (135-145) mmol/L Potassium (3.3-5.1) mmol/L Chloride (96-108) mmol/L Carbon Dioxide (22-29) mmol/L Anion Gap (12-20) BUN (9-16) mg/dL Creatinine (0.5-1.4) mg/dL Estim Creat Clear Calc Estimated GFR Random Glucose (60-115) mg/dL Lactic Acid 1.2 (0.5-2.0) mmol/L Calcium (8.4-10.2) mg/dL Magnesium 1.7 (1.6-2.6) mg/dL Total Bilirubin (0.0-1.0) mg/dL AST (5-31) U/L ALT (0-31) U/L Alkaline Phosphatase (39-117) U/L Total Protein (6.5-8.0) g/dL Albumin (3.5-5.0) g/dL Lipase (8-78) U/L TSH < 0.01 L (0.32-4.0) uIU/mL Free T4 1.49 (0.71-1.85) ng/dL Stool Occult Blood (NEGATIVE) 01/03/21 Range/Units 16:45 WBC 10.2 (4.8-10.8) X10*3/uL RBC 5.19 (4.20-5.50) X10*6/uL Hgb 15.7 (12.0-16.0) g/dl Hct 48.6 H (37-47) % MCV 93.6 (80-98) fL MCH 30.3 (27.0-33.0) pg MCHC 32.3 (31.0-35.0) g/dl RDW 11.8 (11.0-16.0) % Plt Count 199 (160-400) X10*3/uL MPV 10.4 (9.4-12.3) fL Immature Gran % (Auto) 0.3 (0.0-0.4) % Neut % (Auto) 54.7 (45-73) % Lymph % (Auto) 33.8 (20-40) % [place] % (Auto) 9.6 (2-11) % Eos % (Auto) 1.3 (0-4) % Baso % (Auto) 0.3 (0-2) % Lymph # (Auto) 3.5 (1.2-4.9) X10*3/uL [place] # (Auto) 1.0 (0.1-1.2) X10*3/uL Eos # (Auto) 0.1 (0.0-0.4) X10*3/uL Baso # (Auto) 0.0 (0.0-0.2) X10*3/uL Abs Immat Gran (auto) 0.03 (0.00-0.03) X10*3/uL Absolute Neuts (auto) 5.6 (2.0-8.3) X10*3/uL Absolute Nucleated RBC 0.000 (0.0-0.012) X10*3/uL Nucleated RBC % (auto) 0.0 (0.0-0.2) /100WBC Sodium (135-145) mmol/L Potassium (3.3-5.1) mmol/L Chloride (96-108) mmol/L Carbon Dioxide (22-29) mmol/L Anion Gap (12-20) BUN (9-16) mg/dL Creatinine (0.5-1.4) mg/dL Estim Creat Clear Calc Estimated GFR Random Glucose (60-115) mg/dL Lactic Acid (0.5-2.0) mmol/L Calcium (8.4-10.2) mg/dL Magnesium (1.6-2.6) mg/dL Total Bilirubin (0.0-1.0) mg/dL AST (5-31) U/L ALT (0-31) U/L Alkaline Phosphatase (39-117) U/L Total Protein (6.5-8.0) g/dL Albumin (3.5-5.0) g/dL Lipase (8-78) U/L TSH (0.32-4.0) uIU/mL Free T4 (0.71-1.85) ng/dL Stool Occult Blood (NEGATIVE) Imaging Data ct scan of abd/pelvis GI bleed protocol: Attestation: I personally reviewed and interpreted this imaging study as follows: Radiologist's impression: FINDINGS: The lung bases are clear. The liver is unremarkable. There is a gallstone in the gallbladder. There is no biliary duct dilatation. The spleen is unremarkable. Pancreas unremarkable. The adrenal glands are unremarkable. There are small stones in the upper pole of the left kidney. A small cyst in the lower pole of the left kidney. The kidneys are otherwise unremarkable. The bladder is unremarkable. Small and large bowel is unremarkable. No evidence of active GI bleeding is seen. The appendix has been removed. There is a moderate size esophageal hernia. There is question of wall thickening of the stomach versus changes due to underdistention. No ascites or adenopathy is seen. There is a small umbilical hernia containing fat. There is evidence of atherosclerotic disease. No aneurysm is seen. The uterus and adnexa are unremarkable. There is severe arthritis at both hip joints. CT/CT gi bleed abd pel wo/w con IMPRESSION: No evidence of active GI bleeding seen. Moderate size esophageal hernia. Question wall thickening of the stomach versus changes due to underdistention. Gallstone. Small left renal stones. Small left renal cyst. ECG Data Attestation: I personally reviewed and interpreted this ECG as follows: ECG interpretation date: 01/03/21 ECG interpretation time: 14:21 Interpretation: EKG sinus tachycardia with premature atrial complexes with a ventricular rate of 109 with right atrial enlargement right ventricular hypertrophy with repolarization abnormalities with inverted T-waves no acute ischemic changes are noted. Critical Care Time Critical Care Time Critical Care Time: Yes Total Critical Care Time: 60 Attestation: I personally attest to this time spent taking care of the patient Discharge Plan Discharge Clinical Impression: Positive fecal occult blood test, Episode of generalized weakness Patient Disposition: Admitted As Inpatient
[2021-01-03 13:36] LABS: OBS Int Ctl Valid YES; OBS1 POSITIVE (NEGATIVE)
--- NOTE | 2021-01-03 13:44 | ECG_ITS ---
Test Reason : ABDOMINAL PAIN Blood Pressure : / mmHG Vent. Rate : 109 BPM Atrial Rate : 109 BPM P-R Int : 130 ms QRS Dur : 092 ms QT Int : 310 ms P-R-T Axes : 052 101 -25 degrees QTc Int : 417 ms Sinus tachycardia with Premature atrial complexes Right atrial enlargement Right ventricular hypertrophy with repolarization abnormality T wave abnormality, consider inferior ischemia Abnormal ECG When compared with ECG of 18-JAN-2020 16:16, ST now depressed in Inferior leads T wave inversion now evident in Inferior leads T wave inversion now evident in Anterior leads Referred By: Henny Bustillo Electronically Signed By:VLADIMIR SHIRLEY
[2021-01-03 13:54] LABS: Lactic Acid 1.2 mmol/L (0.5-2.0)
[2021-01-03 13:58] LABS: Magnesium 1.7 mg/dL (1.6-2.6)
[2021-01-03 14:07] LABS: Alanine Aminotransferase 19 U/L (0-31); Albumin Level 3.5 g/dL (3.5-5.0); Alkaline Phosphatase 95 U/L (39-117); Anion Gap 14 (12-20); Aspartate Amino Transferase 20 U/L (5-31); Bilirubin Total 0.8 mg/dL (0.0-1.0); Blood Urea Nitrogen 43 mg/dL (9-16); Carbon Dioxide 21 mmol/L (22-29); Chloride 106 mmol/L (96-108); Creatinine Clr Calc Pharmacy 143.1; Estimated Glomerular Filt Rate > 60; Glucose Random 100 mg/dL (60-115); Lipase 46 U/L (8-78); Potassium 4.4 mmol/L (3.3-5.1); Sodium 137 mmol/L (135-145); Total Protein 7.3 g/dL (6.5-8.0)
[2021-01-03 14:20] LABS: TSH reflex Free T4 < 0.01 uIU/mL (0.32-4.0)
[2021-01-03] MEDS: 0.9 % Sodium Chloride 1,000 ML 999 ML IVCONT ×2 (14:26→16:03)
[2021-01-03] MEDS: Morphine Sulfate 4 MG/ML CARTRIDGE IVPUSH (14:27)
[2021-01-03 15:11] LABS: Free T4 (Free Thyroxine) 1.49 ng/dL (0.71-1.85)
[2021-01-03] MEDS: iohexoL 350 MG/ML 100 ML INFUS..BTL IV (15:49)
--- NOTE | 2021-01-03 16:21 | PC.NURSE ---
Patient is resting quietly in bed with eyes closed. Pt currently denies any pain. Pt noted to have sats drop to 85% when she falls asleep. Pt placed on oygen via nc @2LPM. Sats improved to 95%.
[2021-01-03 16:49] LABS: MANUAL DIFF FLAG NO
[2021-01-03 16:52] LABS: Basophils Percent Auto 0.3 % (0-2); Eosinophils Absolute Auto 0.1 X10*3/uL (0.0-0.4); Eosinophils Percent Auto 1.3 % (0-4); Hematocrit 48.6 % (37-47); Hemoglobin 15.7 g/dl (12.0-16.0); Imm Gran Abs Auto 0.03 X10*3/uL (0.00-0.03); Imm Gran Pct Auto 0.3 % (0.0-0.4); Lymphocytes Absolute Auto 3.5 X10*3/uL (1.2-4.9); Lymphocytes Percent Auto 33.8 % (20-40); Mean Corpuscular HGB Conc 32.3 g/dl (31.0-35.0); Mean Corpuscular Hemoglobin 30.3 pg (27.0-33.0); Mean Corpuscular Volume 93.6 fL (80-98); Mean Platelet Volume 10.4 fL (9.4-12.3); Monocytes Percent Auto 9.6 % (2-11); Neutrophils Absolute Auto 5.6 X10*3/uL (2.0-8.3); Neutrophils Percent Auto 54.7 % (45-73); Platelet Count 199 X10*3/uL (160-400); Red Blood Count 5.19 X10*6/uL (4.20-5.50); Red Cell Distribution Width 11.8 % (11.0-16.0); White Blood Count 10.2 X10*3/uL (4.8-10.8)
--- NOTE | 2021-01-03 17:31 | PHA.MEDREC ---
Pharmacy Consult ? Medication Reconciliation Pharmacy has completed the medication reconciliation.
[2021-01-03] MEDS: Pantoprazole Sodium 40 MG/10 ML VIAL 80 MG IVPUSH (18:44)
[2021-01-03 19:13] LABS: COVID-19 Test Negative (Negative)
--- NOTE | 2021-01-03 20:14 | PC.NURSE ---
REPORT FROM GERARDO, AWAITING BED ASSIGNMENT.
[2021-01-03 20:36] LABS: Troponin-I High Sensitivity 38.5 ng/L (<3.5-17.0)
--- NOTE | 2021-01-03 21:30 | PC.NURSE ---
pt awake and alert, drinking nikolai jose. pt repositioned up in bed. ortho's performed, did not stand patient due to extremity contractures.
--- NOTE | 2021-01-03 22:54 | PC.NURSE ---
pt's hr 154 sinus tach, spo2 75 percent on 2 lpm. pt was sleeping. went into room and woke patient, hr came down to 116 bpm and spo2 improved to 95% 2 lpm.
--- NOTE | 2021-01-03 23:10 | PC.NURSE ---
called respiratory for CPAP but no answer. hospitalist will put in order, pt placed on CPAP when admitted in the past.
--- NOTE | 2021-01-03 23:47 | P.HPHOSP_ITS ---
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 Patient reports that she started having diarrhea and nausea and vomiting yesterday, about 3-4 episodes daily, diarrhea was significant today and she felt like she had diarrhea all day. No chest pain, reports that the vomit and the stool both black, her vomit felt like it was coffee-ground. She denies any urinary symptoms, no lower extremity edema. No shortness of breath. No fever or chills. Patient denies taking any NSAIDs, last use of Aleve was 3-4 months ago for a day or 2, uses aspirin seldom. Denies drinking any alcohol. Patient vitals significant for a temp of 98.3?, heart rate of 109, respiratory rate of 14, blood pressure 136/107, satting 94% on room air, patient does tend to dipped down to the 70s when she is sleeping and reports that she has history of sleep apnea but does not use a CPAP at home since 2004 Labs are significant for WBC count of 11.8 that improved to 10.2 on repeat labs today, hemoglobin of 15.7, BUN of 43, creatinine of 0.48, troponin of 38.5, TSH less than 0.01, stool occult blood positive CT of the abdomen shows no evidence of active GI bleeding, moderate-size esophageal hernia, question of wall thickening of the stomach versus changed due to under distension, Past medical history as below and confirmed with patient Review of Systems Review of Systems: Yes all other systems are reviewed and are negative ON LICENSE OF [facility] Medical History (Updated 01/03/21 @ 23:56 by Roxann Hogan MD) Anemia Asthma Depression GI bleed Hypertension Hypothyroidism Insomnia Obesity RABIA (obstructive sleep apnea) Rheumatoid arthritis Thyroiditis Ulcer Family History Other Cirrhosis Surgical History H/O lymph node biopsy History of appendectomy Status post biopsy of uterine cervix Social History Household Members: Children, Caregiver and Unknown / Unable to assess Housing: Apartment Do you presently have visiting nurse or other home services: Yes (WIRE BENDER) Alcohol intake: never Advance Directives: Yes Advance Directives on File: Yes Advance Directives Date on File: 03/22/20 service: No Current occupational status: disabled 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 [place] Meds Allergies Allergy/AdvReac Type Severity Reaction Status Date / Time ibuprofen [From MOTRIN] Allergy Unknown ULCERS Verified 03/12/20 19:51 naproxen [From NAPROSYN] Allergy Unknown ULCERS Verified 03/12/20 19:51 Active Medications: Current Medications Generic Name Dose Route Start Last Admin Trade Name Freq PRN Reason Stop Dose Admin Acetaminophen 650 mg 01/03/21 21:37 Acetaminophen 325 Mg Tablet PO Q6H PRN Pain, Mild (Pain Scale 1-3) Fluoxetine HCl 40 mg 01/04/21 09:00 Fluoxetine Hcl 20 Mg Capsule PO DAILY [facility] Hydroxychloroquine Sulfate 200 mg 01/04/21 09:00 Hydroxychloroquine Sulfate 200 Mg Tablet PO DAILY [facility] Morphine Sulfate 4 mg 01/03/21 21:37 Morphine Sulfate 4 Mg/Ml Cartridge IVPUSH Q4H PRN Pain, Severe (Pain Scale 7-10) Nystatin 1 appl 01/04/21 09:00 Nystatin Cream 15 Gm Tube TOPICAL BID [facility] Protocol Ondansetron HCl 4 mg 01/03/21 21:37 Ondansetron Hcl 4 Mg/2 Ml Vial IVPUSH Q8H PRN Nausea and Vomiting Oxycodone HCl 10 mg 01/03/21 21:37 Oxycodone Hcl Immed Release 5 Mg Tablet PO Q12H PRN Pain, Moderate Pharmacy Consult 1 each 01/03/21 17:14 Consult Rx Perform Med Rec MISCELLANE ONCE PRN Consult order Prednisone 15 mg 01/04/21 09:00 Prednisone 5 Mg Tablet PO DAILY [facility] Sodium Chloride 3 ml 01/04/21 00:00 0.9 % Sodium Chloride Flush 3 Ml Syringe IVFLUSH QSHIFT [facility] Vitamin D 50 mcg 01/04/21 09:00 Cholecalciferol (Vitamin D3) 25 Mcg Tablet PO BID [facility] Home Medications Medication Instructions Recorded Confirmed Last Taken Type Enbrel SureClick 1 syringe SUBCUT QWEEK 03/12/20 01/03/21 03/04/20 History cholecalciferol (vitamin D3) 1 cap PO BID 03/12/20 01/03/21 03/08/20 History [Vitamin D3] docusate sodium 1 cap PO BEDTIME PRN 03/12/20 01/03/21 Unknown History fluoxetine 2 cap PO DAILY 03/12/20 01/03/21 03/08/20 History oxycodone 10 mg PO Q12H PRN 03/12/20 01/03/21 03/01/20 History pantoprazole 1 tab PO BID 03/12/20 01/03/21 03/01/20 History ferrous sulfate 1 tab PO BID 01/03/21 01/03/21 Unknown History hydroxychloroquine 1 tab PO DAILY 01/03/21 01/03/21 Unknown History levothyroxine 1 tab PO DAILY 01/03/21 01/03/21 Unknown History nystatin 1 appl TOPICAL BID 01/03/21 01/03/21 Unknown History prednisone 3 tab PO DAILY 01/03/21 01/03/21 Unknown History Physical Exam Vital Signs and Narrative: Vital Signs: Last Vital Signs Temp 97.9 F 01/03/21 22:13 Pulse 85 01/03/21 22:55 Resp 13 01/03/21 22:55 BP 131/87 01/03/21 22:55 Pulse Ox 95 01/03/21 22:55 Body Mass Index 27.3 Const: General: cooperative and no acute distress Orientation/consciousness: patient oriented x3 Eyes: General: appearance normal, both eyes and all related structures Resp: Effort & Inspection: normal respiratory effort and able to speak in complete sentences Cardio: Rate: regular rate Rhythm: regular rhythm GI: Palpation (GI): Soft to palpation Auscultation: normal bowel sounds Skin: General skin exam: no rashes or lesions noted Neuro: General: patient oriented x3 Cognition (Neuro): normal cognition Extrem: General: Yes normal to inspection and Yes no pedal edema Results Labs CBC and Chem 7: 01/03/21 16:45 01/03/21 13:28 Labs: Laboratory Results - last 24 hr 01/03/21 01/03/21 01/03/21 12:39 13:27 13:28 MCV 92.6 MCH 30.6 MCHC 33.1 RDW 11.7 Plt Count 245 MPV 10.4 Immature Gran % (Auto) 0.3 Neut % (Auto) 53.3 Lymph % (Auto) 34.5 [place] % (Auto) 10.5 Eos % (Auto) 1.1 Baso % (Auto) 0.3 Lymph # (Auto) 4.1 [place] # (Auto) 1.2 Eos # (Auto) 0.1 Baso # (Auto) 0.0 Abs Immat Gran (auto) 0.04 H Absolute Neuts (auto) 6.3 Absolute Nucleated RBC 0.000 Nucleated RBC % (auto) 0.0 Anion Gap 14 Estim Creat Clear Calc 143.1 Estimated GFR > 60 Random Glucose 100 Lactic Acid Calcium 9.0 D Magnesium Total Bilirubin 0.8 AST 20 D ALT 19 Alkaline Phosphatase 95 Troponin I High Sens Total Protein 7.3 D Albumin 3.5 D Lipase 46 TSH Free T4 Stool Occult Blood POSITIVE COVID-19 ([facility]) COVID-19 [employer] 01/03/21 01/03/21 01/03/21 13:28 13:28 13:28 MCV MCH MCHC RDW Plt Count MPV Immature Gran % (Auto) Neut % (Auto) Lymph % (Auto) [place] % (Auto) Eos % (Auto) Baso % (Auto) Lymph # (Auto) [place] # (Auto) Eos # (Auto) Baso # (Auto) Abs Immat Gran (auto) Absolute Neuts (auto) Absolute Nucleated RBC Nucleated RBC % (auto) Anion Gap Estim Creat Clear Calc Estimated GFR Random Glucose Lactic Acid 1.2 Calcium Magnesium 1.7 Total Bilirubin AST ALT Alkaline Phosphatase Troponin I High Sens Total Protein Albumin Lipase TSH < 0.01 L Free T4 1.49 Stool Occult Blood COVID-19 ([facility]) COVID-19 [employer] 01/03/21 01/03/21 01/03/21 16:45 18:47 19:50 MCV 93.6 MCH 30.3 MCHC 32.3 RDW 11.8 Plt Count 199 MPV 10.4 Immature Gran % (Auto) 0.3 Neut % (Auto) 54.7 Lymph % (Auto) 33.8 [place] % (Auto) 9.6 Eos % (Auto) 1.3 Baso % (Auto) 0.3 Lymph # (Auto) 3.5 [place] # (Auto) 1.0 Eos # (Auto) 0.1 Baso # (Auto) 0.0 Abs Immat Gran (auto) 0.03 Absolute Neuts (auto) 5.6 Absolute Nucleated RBC 0.000 Nucleated RBC % (auto) 0.0 Anion Gap Estim Creat Clear Calc Estimated GFR Random Glucose Lactic Acid Calcium Magnesium Total Bilirubin AST ALT Alkaline Phosphatase Troponin I High Sens 38.5 H* Total Protein Albumin Lipase TSH Free T4 Stool Occult Blood COVID-19 ([facility]) Negative COVID-19 Clin Com See Note Imaging Radiologist's Impressions: Impressions Abdomen/Pelvis CT 01/03/21 12:44 IMPRESSION: No evidence of active GI bleeding seen. Moderate size esophageal hernia. Question wall thickening of the stomach versus changes due to underdistention. Gallstone. Small left renal stones. Small left renal cyst. Assessment and Plan (1) Positive fecal occult blood test: Status: Acute (2) Diarrhea: Status: Acute (3) Coffee ground emesis: Status: Acute (4) Low TSH level: Status: Acute This is a 52-year-old female with past medical history of NSTEMI, stomach ulcer, GI bleed, rheumatoid arthritis who presents to the hospital with complaints of coffee-ground emesis and melena. # acute GI bleed - most likely upper GI - has history of stomach ulcers with GI bleed in the past - patient on pantoprazole at home - denies any recent use of NSAID or aspirin - positive stool occult blood - hemoglobin stable, - hemodynamically stable Plan: - keep NPO - start pantoprazole IV b.i.d. - gastroenterology consult - follow CBC, transfuse PRBC threshold with hemoglobin less than 7 # diarrhea - most likely secondary to acute GI bleed - will rule out C diff # sleep apnea with nocturnal hypoxia - will place on CPAP # low TSH level with a history of hypothyroidism - will hold levothyroxine - patient will need repeat of her TSH in 4-6 weeks and follow-up with her PCP/facility designer # rheumatoid arthritis - continue home medications including prednisone and Enbrel DVT prophylaxis: SCDs in the setting of acute GI bleed Quality Stroke Does the patient have a stroke diagnosis?: No VTE Prior VTE?: No VTE Risk Level:: Medical - moderate - high VTE Device Contraindication: N/A - Device Ordered VTE Drug Contraindication: Treatment Not Tolerated
[2021-01-04] VITALS (12 sets, daily range): BP systolic 87–153; BP diastolic 56–94; PULSE 72–110; RESP 15–26; TEMP 36.1–36.8; O2SAT 93–100; BMI 27.3
[2021-01-04 00:10] LABS: Troponin-I High Sensitivity 31.5 ng/L (<3.5-17.0)
--- NOTE | 2021-01-04 06:20 | PC.NURSE ---
PT RANG MASTERS AT 03:30 AND REQUESTED A BED DEL ROSARIO TO VOID.
[2021-01-04 06:22] LABS: MANUAL DIFF FLAG NO
--- NOTE | 2021-01-04 06:36 | P.CNGI_ITS ---
History of Present Illness Data of Consult Service Date: 01/04/21 Primary Care Provider: Jenae Khan MD HPI ?60-year-old female with hx of hypertension, hypothyroidism, rheumatoid arthritis, anemia, asthma, history of GI bleed and ulcers, depression, insomnia, NSTEMI, RABIA, who I am asked to see for assessment of melena and coffee ground emesis. patient had noted diarrhea with black colored stools, and cofee colored emesis with nausea since yesterday. She did eat some soup with bee before this.. she also felt geenrally weak and noted epigastric and ruq abdominal pain. Patient denies taking any NSAIDs, denies drinking any alcohol.No shortness of breath.? No fever or chills and no chest pain. She had also been taking pepto bismol for last few days due to upset stomach. also takes pantoprazole daily. today she feels better with pain resolved but still seeing black colored stools. Of note had admission 03/2020 for hematemesis, anemia and GIB with EGD and colonoscopy--no bleeding culprit was identified but she did have erosions in hernial sac, hemorrhoids, small polyp and diverticulosis. She has had requirements for PRBC due to anemia over the yrs. Labs: WBC count of 11.8 that improved to 10.2 on repeat labs, hemoglobin of 15.7, BUN of 43, creatinine of 0.48, troponin of 38.5, TSH less than 0.01, stool occult bl ood positive IMAGING: CT of the abdomen/pelvis: no evidence of active GI bleeding, moderate-size es ophageal hernia, question of wall thickening of the stomach versus changed due to under distension, Review of Systems Review of Systems: Constitutional : No Weight loss, No Fever, No Chills, No Night Sweats, No Fatigue, NoMalaise ENT/Mouth: No ear pain, No sore throat, No Difficulty swallowing Cardiovascular : No Chest Pain, No SOB, No Dyspnea on Exertion, No Orthopnea, NoEdema, No Palpitations Respiratory : No Cough, No Sputum, No Wheezing, No Dyspnea Gastrointestinal : Positive Nausea, positive Vomiting, positive abdominal pain, positive Diarrhea, No blood streaked emesis, positive coffee-ground emesis, No gross hematemesis, No blood streak stool, No gross hematochezia, positive Melena Genitourinary : No irregular bleeding, No Dysuria, No Urinary Frequency, No Hematuria,No Urinary Incontinence, No Urgency, No Flank Pain Musculoskeletal : No joint pain, No Myalgias, No Joint Swelling Skin : No Skin Lesions, No rash Neuro : No Weakness, No Numbness, No Paresthesias, No Loss of Consciousness, NoDizziness, No Headache Psych : No Social Issues, Heme/Lymph: No Bruising, No Bleeding,No Lymphadenopathy Endocrine : No Polyuria, No Polydipsia, No Temperature Intolerance Yes all oth er systems are reviewed and are negative [facility] Past Medical History Medical History (Updated 01/03/21 @ 23:56 by Roxann Hogan MD) Anemia Asthma Depression GI bleed Hypertension Hypothyroidism Insomnia Obesity RABIA (obstructive sleep apnea) Rheumatoid arthritis Thyroiditis Ulcer Family History Family History Other Cirrhosis Surgical History Surgical History H/O lymph node biopsy History of appendectomy Status post biopsy of uterine cervix Social History Social History Household Members: Family Housing: House Do you presently have visiting nurse or other home services: Yes (ADDICTIONS THERAPIST) Alcohol intake: never Patient Tobacco Use Status: Never used Tobacco Use of substances other than those prescribed or required for medical reasons: No Have you been hit, kicked, punched, or otherwise hurt by someone within the past year? 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 [employer] Allergies Allergy/AdvReac Type Severity Reaction Status Date / Time ibuprofen [From MOTRIN] Allergy Unknown ULCERS Verified 03/12/20 19:51 naproxen [From NAPROSYN] Allergy Unknown ULCERS Verified 03/12/20 19:51 Active Medications: Current Medications Generic Name Dose Route Start Last Admin Trade Name Andres PRN Reason Stop Dose Admin Acetaminophen 650 mg 01/03/21 21:37 Acetaminophen 325 Mg Tablet PO Q6H PRN Pain, Mild (Pain Scale 1-3) Fluoxetine HCl 40 mg 01/04/21 09:00 Fluoxetine Hcl 20 Mg Capsule PO DAILY [facility] Hydroxychloroquine Sulfate 200 mg 01/04/21 09:00 Hydroxychloroquine Sulfate 200 Mg Tablet PO DAILY [facility] Morphine Sulfate 4 mg 01/03/21 21:37 Morphine Sulfate 4 Mg/Ml Cartridge IVPUSH Q4H PRN Pain, Severe (Pain Scale 7-10) Nystatin 1 appl 01/04/21 09:00 Nystatin Cream 15 Gm Tube TOPICAL BID [facility] Protocol Ondansetron HCl 4 mg 01/03/21 21:37 Ondansetron Hcl 4 Mg/2 Ml Vial IVPUSH Q8H PRN Nausea and Vomiting Oxycodone HCl 10 mg 01/03/21 21:37 Oxycodone Hcl Immed Release 5 Mg Tablet PO Q12H PRN Pain, Moderate Pantoprazole Sodium 40 mg 01/04/21 06:30 Pantoprazole Sodium 40 Mg/10 Ml Vial IVPUSH BID@[id number] [facility] Pharmacy Consult 1 each 01/03/21 17:14 Consult Rx Perform Med Rec MISCELLANE ONCE PRN Consult order Prednisone 15 mg 01/04/21 09:00 Prednisone 5 Mg Tablet PO DAILY [facility] Sodium Chloride 3 ml 01/04/21 00:00 01/04/21 02:23 0.9 % Sodium Chloride Flush 3 Ml Syringe IVFLUSH Not Given QSHIFT [facility] Vitamin D 50 mcg 01/04/21 09:00 Cholecalciferol (Vitamin D3) 25 Mcg Tablet PO BID [facility] Home Medications Medication Instructions Recorded Confirmed Last Taken Type cholecalciferol (vitamin D3) 50 1 cap PO BID 03/12/20 01/03/21 03/08/20 History mcg (2,000 unit) capsule (Vitamin D3) docusate sodium 100 mg capsule 1 cap PO BEDTIME PRN 03/12/20 01/03/21 Unknown History etanercept 50 mg/mL (1 mL) 1 syringe SUBCUT QWEEK 03/12/20 01/03/21 03/04/20 History subcutaneous pen injector (Enbrel SureClick) fluoxetine 20 mg capsule 2 cap PO DAILY 03/12/20 01/03/2120 History oxycodone 10 mg tablet 10 mg PO Q12H PRN 03/12/20 01/03/21 03/01/20 History pantoprazole 40 mg tablet,delayed 1 tab PO BID 03/12/20 01/03/21 03/01/20 History release ferrous sulfate 325 mg (65 mg 1 tab PO BID 01/03/21 01/03/21 Unknown History iron) tablet hydroxychloroquine 200 mg tablet 1 tab PO DAILY 01/03/21 01/03/21 Unknown History levothyroxine 100 mcg tablet 1 tab PO DAILY 01/03/21 01/03/21 Unknown History nystatin 100,000 unit/gram topical 1 appl TOPICAL BID 01/03/21 01/03/21 Unknown History cream prednisone 5 mg tablet 3 tab PO DAILY 01/03/21 01/03/21 Unknown History Physical Exam Vital Signs: Vital Signs: Last Vital Signs Temp 97.9 F 01/03/21 22:13 Pulse 110 H 01/04/21 06:23 Resp 18 01/04/21 06:23 BP 131/66 01/04/21 06:23 Pulse Ox 97 01/04/21 06:23 Body Mass Index 27.3 Const: General: cooperative and no acute distress Orientation/consciousness: patient oriented x3 Limitations: language barrier Eyes: General: appearance normal, both eyes and all related structures Resp: Effort & Inspection: normal respiratory effort and able to speak in complete sentences Cardio: Rate: regular rate Rhythm: regular rhythm GI: Palpation (GI): Soft to palpation and Tenderness to palpation present (GI) in the epigastrum Auscultation: normal bowel sounds Skin: General skin exam: no rashes or lesions noted Neuro: General: patient oriented x3 Cognition (Neuro): normal cognition Extrem: General: Yes normal to inspection and Yes no pedal edema Results Labs CBC & Chem 7: 01/04/21 06:03 01/04/21 08:56 Labs: Short CBC 01/03/21 01/03/21 Range/Units 12:39 16:45 WBC 11.8 H 10.2 (4.8-10.8) X10*3/uL Hgb 16.2 H D 15.7 (12.0-16.0) g/dl Hct 49.0 H D 48.6 H (37-47) % Plt Count 245 199 (160-400) X10*3/uL BMP 01/03/21 13:28 Sodium 137 Potassium 4.4 Chloride 106 Carbon Dioxide 21 L BUN 43 H D Creatinine 0.48 L Calcium 9.0 D Liver Function 01/03/21 Range/Units 13:28 Total Bilirubin 0.8 (0.0-1.0) mg/dL AST 20 D (5-31) U/L ALT 19 (0-31) U/L Alkaline Phosphatase 95 (39-117) U/L Albumin 3.5 D (3.5-5.0) g/dL Assessment and Plan (1) Coffee ground emesis: Status: Acute 1/ Acute nausea, black stools with emesis. HGB has remained stable, she had been taking peptobismol which may have caused her black stools. This may all be gastroenteritis freddy to the soup. BUN elevated can be due to dehydration or upper GI bleed. PLAN: 1/ Cont PPI for the meantime IV pantoprazole 40 mg BID 2/ EGD for further assessment, if neg then supportive treatment with fluids, anti emetics, PPI 3/ fluid and vol resuscitation Procedures Date of Service Date of Service: 01/04/21
[2021-01-04 06:53] LABS: Basophils Percent Auto 0.5 % (0-2); Eosinophils Absolute Auto 0.1 X10*3/uL (0.0-0.4); Eosinophils Percent Auto 2.2 % (0-4); Hematocrit 51.1 % (37-47); Hemoglobin 16.1 g/dl (12.0-16.0); Imm Gran Abs Auto 0.01 X10*3/uL (0.00-0.03); Imm Gran Pct Auto 0.2 % (0.0-0.4); Lymphocytes Absolute Auto 2.3 X10*3/uL (1.2-4.9); Lymphocytes Percent Auto 35.5 % (20-40); Mean Corpuscular HGB Conc 31.5 g/dl (31.0-35.0); Mean Corpuscular Hemoglobin 30.7 pg (27.0-33.0); Mean Corpuscular Volume 97.5 fL (80-98); Monocytes Absolute Auto 0.6 X10*3/uL (0.1-1.2); Monocytes Percent Auto 9.4 % (2-11); Neutrophils Absolute Auto 3.3 X10*3/uL (2.0-8.3); Neutrophils Percent Auto 52.2 % (45-73); Platelet Count 159 X10*3/uL (160-400); Red Blood Count 5.24 X10*6/uL (4.20-5.50); Red Cell Distribution Width 12.1 % (11.0-16.0); White Blood Count 6.4 X10*3/uL (4.8-10.8)
[2021-01-04] MEDS: Pantoprazole Sodium 40 MG/10 ML VIAL IVPUSH ×2 (07:06→15:43)
[2021-01-04] MEDS: 0.9 % Sodium Chloride Flush 3 ML SYRINGE IVFLUSH ×3 (09:00→23:29)
[2021-01-04 10:28] LABS: Anion Gap 11 (12-20); Blood Urea Nitrogen 22 mg/dL (9-16); Calcium 8.8 mg/dL (8.4-10.2); Carbon Dioxide 27 mmol/L (22-29); Chloride 105 mmol/L (96-108); Creatinine Clr Calc Pharmacy 143.1; Estimated Glomerular Filt Rate > 60; Glucose Random 121 mg/dL (60-115); Potassium 4.1 mmol/L (3.3-5.1); Sodium 139 mmol/L (135-145)
--- NOTE | 2021-01-04 10:58 | P.CONAN_ITS ---
FORM[facility] Active Problems Active Problems: All Active Problems (Updated 01/03/21 @ 23:56 by Roxann Hogan MD) Low TSH level (Acute) Diarrhea (Acute) Coffee ground emesis (Acute) Positive fecal occult blood test (Acute) Episode of generalized weakness (Acute) Constipation (Acute) NSTEMI (non-ST elevated myocardial infarction) (Acute) Ulcer (Acute) Thyroiditis (Acute) Rheumatoid arthritis (Acute) RABIA (obstructive sleep apnea) (Acute) Obesity (Acute) Hypothyroidism (Acute) Hypertension (Acute) Depression (Acute) Past Medical History Medical History (Updated 01/03/21 @ 23:56 by Roxann Hogan MD) Anemia Asthma Depression GI bleed Hypertension Hypothyroidism Insomnia Obesity RABIA (obstructive sleep apnea) Rheumatoid arthritis Thyroiditis Ulcer Family History Family History Other Cirrhosis Family history of problems with anesthesia: No Surgical History Surgical History H/O lymph node biopsy History of appendectomy Status post biopsy of uterine cervix History of Problems with Anesthesia: No Social History Social History Household Members: Family Housing: House Do you presently have visiting nurse or other home services: Yes ([employer]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 [place] Meds Allergies Allergy/AdvReac Type Severity Reaction Status Date / Time ibuprofen [From MOTRIN] Allergy Unknown ULCERS Verified 03/12/20 19:51 naproxen [From NAPROSYN] Allergy Unknown ULCERS Verified 03/12/20 19:51 Active Medications: Current Medications Generic Name Dose Route Start Last Admin Trade Name Freq PRN Reason Stop Dose Admin Acetaminophen 650 mg 01/03/21 21:37 Acetaminophen 325 Mg Tablet PO Q6H PRN Pain, Mild (Pain Scale 1-3) Fluoxetine HCl 40 mg 01/04/21 09:00 Fluoxetine Hcl 20 Mg Capsule PO DAILY [facility] Hydroxychloroquine Sulfate 200 mg 01/04/21 09:00 Hydroxychloroquine Sulfate 200 Mg Tablet PO DAILY [facility] Levothyroxine Sodium 50 mcg 01/05/21 06:00 Levothyroxine Sodium 50 Mcg Tablet PO DAILY@0600 [facility] Morphine Sulfate 4 mg 01/03/21 21:37 Morphine Sulfate 4 Mg/Ml Cartridge IVPUSH Q4H PRN Pain, Severe (Pain Scale 7-10) Nystatin 1 appl 01/04/21 09:00 Nystatin Cream 15 Gm Tube TOPICAL BID [facility] Protocol Ondansetron HCl 4 mg 01/03/21 21:37 Ondansetron Hcl 4 Mg/2 Ml Vial IVPUSH Q8H PRN Nausea and Vomiting Oxycodone HCl 10 mg 01/03/21 21:37 Oxycodone Hcl Immed Release 5 Mg Tablet PO Q12H PRN Pain, Moderate Pantoprazole Sodium 40 mg 01/04/21 06:30 01/04/21 07:06 Pantoprazole Sodium 40 Mg/10 Ml Vial IVPUSH 40 mg BID@0630,1630 [facility] Administration Pharmacy Consult 1 each 01/03/21 17:14 Consult Rx Perform Med Rec MISCELLANE ONCE PRN Consult order Prednisone 15 mg 01/04/21 09:00 Prednisone 5 Mg Tablet PO DAILY [facility] Sodium Chloride 3 ml 01/04/21 00:00 01/04/21 09:00 0.9 % Sodium Chloride Flush 3 Ml Syringe IVFLUSH 3 ml QSHIFT [facility] Administration Vitamin D 50 mcg 01/04/21 09:00 Cholecalciferol (Vitamin D3) 25 Mcg Tablet PO BID [facility] Home Medications Medication Instructions Recorded Confirmed Last Taken Type cholecalciferol (vitamin D3) 50 1 cap PO BID 03/12/20 01/03/21 03/08/20 History mcg (2,000 unit) capsule (Vitamin D3) docusate sodium 100 mg capsule 1 cap PO BEDTIME PRN 03/12/20 01/03/21 Unknown History etanercept 50 mg/mL (1 mL) 1 syringe SUBCUT QWEEK 03/12/20 01/03/21 03/04/20 History subcutaneous pen injector (Enbrel Axel) fluoxetine 20 mg capsule 2 cap PO DAILY 03/12/20 01/03/21 03/08/20 History oxycodone 10 mg tablet 10 mg PO Q12H PRN 03/12/20 01/03/21 03/01/20 History pantoprazole 40 mg tablet,delayed 1 tab PO BID 03/12/20 01/03/21 03/01/20 History release ferrous sulfate 325 mg (65 mg 1 tab PO BID 01/03/21 01/03/21 Unknown History iron) tablet hydroxychloroquine 200 mg tablet 1 tab PO DAILY 01/03/21 01/03/21 Unknown History levothyroxine 100 mcg tablet 1 tab PO DAILY 01/03/21 01/03/21 Unknown History nystatin 100,000 unit/gram topical 1 appl TOPICAL BID 01/03/21 01/03/21 Unknown History cream prednisone 5 mg tablet 3 tab PO DAILY 01/03/21 01/03/21 Unknown History Exam Exam Date and Time: January 04, 2021 1058 Height,Weight and Vital Signs: Height 5 ft 8 in Weight 81.647 kg Last Vital Signs Temp 97 F 01/04/21 08:00 Pulse 72 01/04/21 08:00 Resp 20 01/04/21 08:00 BP 143/77 H 01/04/21 08:00 Pulse Ox 95 01/04/21 08:00 Pertinent Lab Results Pertinent Lab Results: Laboratory Tests 01/03/21 01/03/21 01/03/21 12:39 13:27 13:28 WBC 11.8 H RBC 5.29 D Hgb 16.2 H D Hct 49.0 H D MCV 92.6 MCH 30.6 MCHC 33.1 RDW 11.7 Plt Count 245 MPV 10.4 Immature Gran % (Auto) 0.3 Neut % (Auto) 53.3 Lymph % (Auto) 34.5 [place] % (Auto) 10.5 Eos % (Auto) 1.1 Baso % (Auto) 0.3 Lymph # (Auto) 4.1 [place] # (Auto) 1.2 Eos # (Auto) 0.1 Baso # (Auto) 0.0 Abs Immat Gran (auto) 0.04 H Absolute Neuts (auto) 6.3 Absolute Nucleated RBC 0.000 Nucleated RBC % (auto) 0.0 Sodium 137 Potassium 4.4 Chloride 106 Carbon Dioxide 21 L Anion Gap 14 BUN 43 H D Creatinine 0.48 L Estim Creat Clear Calc 143.1 Estimated GFR > 60 Random Glucose 100 Lactic Acid Calcium 9.0 D Magnesium Total Bilirubin 0.8 AST 20 D ALT 19 Alkaline Phosphatase 95 Troponin I High Sens Total Protein 7.3 D Albumin 3.5 D Lipase 46 TSH Free T4 Stool Occult Blood POSITIVE COVID-19 ([facility]) COVID-19 Clin Com 01/03/21 01/03/21 01/03/21 13:28 13:28 13:28 WBC RBC Hgb Hct MCV MCH MCHC RDW Plt Count MPV Immature Gran % (Auto) Neut % (Auto) Lymph % (Auto) [place] % (Auto) Eos % (Auto) Baso % (Auto) Lymph # (Auto) [place] # (Auto) Eos # (Auto) Baso # (Auto) Abs Immat Gran (auto) Absolute Neuts (auto) Absolute Nucleated RBC Nucleated RBC % (auto) Sodium Potassium Chloride Carbon Dioxide Anion Gap BUN Creatinine Estim Creat Clear Calc Estimated GFR Random Glucose Lactic Acid 1.2 Calcium Magnesium 1.7 Total Bilirubin AST ALT Alkaline Phosphatase Troponin I High Sens Total Protein Albumin Lipase TSH < 0.01 L Free T4 1.49 Stool Occult Blood COVID-19 ([facility]) COVID-19 [employer] Com 01/03/21 01/03/21 01/03/21 16:45 18:47 19:50 WBC 10.2 RBC 5.19 Hgb 15.7 Hct 48.6 H MCV 93.6 MCH 30.3 MCHC 32.3 RDW 11.8 Plt Count 199 MPV 10.4 Immature Gran % (Auto) 0.3 Neut % (Auto) 54.7 Lymph % (Auto) 33.8 [place] % (Auto) 9.6 Eos % (Auto) 1.3 Baso % (Auto) 0.3 Lymph # (Auto) 3.5 [place] # (Auto) 1.0 Eos # (Auto) 0.1 Baso # (Auto) 0.0 Abs Immat Gran (auto) 0.03 Absolute Neuts (auto) 5.6 Absolute Nucleated RBC 0.000 Nucleated RBC % (auto) 0.0 Sodium Potassium Chloride Carbon Dioxide Anion Gap BUN Creatinine Estim Creat Clear Calc Estimated GFR Random Glucose Lactic Acid Calcium Magnesium Total Bilirubin AST ALT Alkaline Phosphatase Troponin I High Sens 38.5 H* Total Protein Albumin Lipase TSH Free T4 Stool Occult Blood COVID-19 ([facility]) Negative COVID-19 Clin Com See Note 01/03/21 01/04/21 01/04/21 23:28 06:03 08:56 WBC 6.4 RBC 5.24 Hgb 16.1 H Hct 51.1 H MCV 97.5 MCH 30.7 MCHC 31.5 RDW 12.1 Plt Count 159 L MPV 11.0 Immature Gran % (Auto) 0.2 Neut % (Auto) 52.2 Lymph % (Auto) 35.5 [place] % (Auto) 9.4 Eos % (Auto) 2.2 Baso % (Auto) 0.5 Lymph # (Auto) 2.3 [place] # (Auto) 0.6 Eos # (Auto) 0.1 Baso # (Auto) 0.0 Abs Immat Gran (auto) 0.01 Absolute Neuts (auto) 3.3 Absolute Nucleated RBC 0.000 Nucleated RBC % (auto) 0.0 Sodium 139 Potassium 4.1 Chloride 105 Carbon Dioxide 27 Anion Gap 11 L BUN 22 H Creatinine 0.48 L Estim Creat Clear Calc 143.1 Estimated GFR > 60 Random Glucose 121 H Lactic Acid Calcium 8.8 Magnesium Total Bilirubin AST ALT Alkaline Phosphatase Troponin I High Sens 31.5 H* Total Protein Albumin Lipase TSH Free T4 Stool Occult Blood COVID-19 ([facility]) COVID-19 Clin Com Airway Mallampati Class: II TM Dist: >3cm Neck ROM: Full Heart: rrr Lungs: cta Assessment and Plan Assessment Anesthesia Assessment: Anesthesia Plan Discussed and Chart Reviewed Final Anesthetic Review Family History of Problems with Anesthesia: No History of Problems with Anesthesia: No NPO: Yes ASA Class: III Final Preanesthetic Review: No Changes in Pt Med Stat, Meds/Allgs Chart Reviewed and Consent Obtained/Reviewed Patient Risk: Intermediate Procedure Risk: Intermediate Anesthetic Plan Anesthetic Plan: MAC: Disposition: Standard PACU
--- NOTE | 2021-01-04 11:27 | MHC.SHP ---
Pre-Procedural Eval Section A Date of Service: 01/04/21 The patient is an INPATIENT: Yes The History & Physical has been completed within 30 days and I have reviewed it.: Yes Section B Chief Complaint: Hematemesis,Melena Allergies: Allergies Allergy/AdvReac Type Severity Reaction Status Date / Time ibuprofen [From MOTRIN] Allergy Unknown ULCERS Verified 03/12/20 19:51 naproxen [From NAPROSYN] Allergy Unknown ULCERS Verified 03/12/20 19:51 Plan Diagnosis/Plan: Unchanged I have reviewed the history and physical and performed a pertinent physical examination on my patient. No changes have occurred unless specified. EGD for assessment of melena and vomiting
--- NOTE | 2021-01-04 11:47 | PM.OP ---
Brief Operative Note Date of Service: 01/04/21 Pre-op diagnosis: melena, nausea Post-op diagnosis: same Procedure: see op note Surgeon: Tonya Braun MD Anesthesia: MAC Was an Receiving Tank Operator used for this Procedure?: No Estimated blood loss (mL): 0 Condition: stable Disposition: PACU
--- NOTE | 2021-01-04 11:47 | W.PM.OPN ---
Operative Note Operative Note Date of Service: 01/04/21 Narrative: Procedure Description: EGD FLEXIBLE TRANSORAL UPPER GASTROINTESTINAL ENDOSCOPY UPPER ENDOSCOPY Consent: Indications for the procedure and potential complications of bleeding, perforation, reaction to medications and missed diagnosis were discussed with the patient and informed consent was obtained. Instrument: Olympus GIF H 190 J mid size upper endoscope Monitoring: Vital signs and clinical assessment, continuous EKG monitoring, Pulse oximetry, Carbon Dioxide monitoring and blood pressure monitoring were done throughout the procedure. Procedure: The patient was placed in the left lateral decubitis position and pre-procedure medications were administered and a bite block was placed. The endoscope was inserted into the mouth and advanced under direct vision to the third part of duodenum. A careful inspection was made as the upper endoscope was withdrawn including a retroflexed examination of the proximal stomach; Findings and interventions are described below. Findings: Larynx:normal Esophagus: GE junction at 34 cm, diaphragm hiatus at 42 cm, 8 cm hiatal hernia noted with several erosions and erythema within the hernial sac camerons erosions Stomach: Patchy gastric erythema with some edema and pallor. Biopsies were obtained. Grade 2 flap valve on retroflexed examination of the cardia. Duodenum: Normal bulb and descending duodenum, Intervention: Biopsies as noted above Impression/Findings: hiatal hernia. large camerons erosions The black stools are likely due to pepto bismuth as nothing acutely bleeding, also some pallor prob from gastroenteritis and dehydration PLAN: Reflux precautions High dose PPI BID e.g pantoprazole 40 mg bid, can use carafate as well o/p surgical assessment for hernia repair
[2021-01-04] MEDS: Cholecalciferol (Vitamin D3) 25 MCG TABLET 50 MCG PO ×2 (12:57→20:12)
[2021-01-04] MEDS: Hydroxychloroquine Sulfate 200 MG TABLET PO (12:58)
[2021-01-04] MEDS: predniSONE 5 MG TABLET 15 MG PO (12:58)
[2021-01-04] MEDS: FLUoxetine HCl 20 MG CAPSULE 40 MG PO (12:59)
--- NOTE | 2021-01-04 14:46 | MHC.CM.PN ---
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
[2021-01-04] MEDS: LORazepam 2 MG/ML VIAL 1 MG IVPUSH (15:47)
--- NOTE | 2021-01-04 16:29 | P.DS_ITS ---
DS: Providers Provider Date of Service: 01/05/21 <Willis Savage MD - Last Filed: 01/05/21 15:25> Date of admission: 01/03/21 21:25 <Ciara Rebolledo MD - Last Filed: 01/31/21 14:51> Primary care physician: Jenae Khan MD <Ciara Rebolledo MD - Last Filed: 01/31/21 14:51> Consults: 01/03/21 21:37 Consult to Gastroenterology Routine Consulting Provider: Tonya Braun Reason for consultation: GI bleed Has provider been notified: No <Ciara Rebolledo MD - Last Filed: 01/31/21 14:51> DS: Diagnosis Discharge Diagnosis (1) Coffee ground emesis: Status: Resolved <Ciara Rebolledo MD - Last Filed: 01/31/21 14:51> (2) Melena: Status: Resolved <Ciara Rebolledo MD - Last Filed: 01/31/21 14:51> (3) Hiatal hernia: Status: Acute <Ciara Rebolledo MD - Last Filed: 01/31/21 14:51> (4) Erich lesion, chronic: Status: Acute <Ciara Rebolledo MD - Last Filed: 01/31/21 14:51> DS: Medications Discharge Medications Home Medications: Home Medications Medication Instructions Recorded Confirmed cholecalciferol (vitamin D3) 50 1 cap PO BID 03/12/20 01/03/21 mcg (2,000 unit) capsule (Vitamin D3) docusate sodium 100 mg capsule 1 cap PO BEDTIME PRN 03/12/20 01/03/21 etanercept 50 mg/mL (1 mL) 1 syringe SUBCUT QWEEK 03/12/20 01/03/21 subcutaneous pen injector (Enbrel SureClick) fluoxetine 20 mg capsule 2 cap PO DAILY 03/12/20 01/03/21 oxycodone 10 mg tablet 10 mg PO Q12H PRN 03/12/20 01/03/21 pantoprazole 40 mg tablet,delayed 1 tab PO BID 03/12/20 01/03/21 release ferrous sulfate 325 mg (65 mg 1 tab PO BID 01/03/21 01/03/21 iron) tablet hydroxychloroquine 200 mg tablet 1 tab PO DAILY 01/03/21 01/03/21 nystatin 100,000 unit/gram topical 1 appl TOPICAL BID 01/03/21 01/03/21 cream prednisone 5 mg tablet 3 tab PO DAILY 01/03/21 01/03/21 Previous Rx's Medication Instructions Recorded levothyroxine 75 mcg tablet 75 mcg PO DAILY #30 tab 01/04/21 sucralfate 1 gram tablet 1 g PO BID #60 tab 01/04/21 <Ciara Rebolledo MD - Last Filed: 01/31/21 14:51> DS: Summary Hospital Course Hospital Course: Please refer to detailed discharge summary done by Dr. Rebolledo, 52-year-old female was admitted to [facility] with symptoms of coffee-ground emesis and melena, she underwent upper endoscopy that showed acute Erich lesions related to large hiatal hernia, black stools were attributed to use of Pepto- Bismol since admission patient did not have any further episodes of acute bleeding she was scheduled to be discharged on 01/04 per since she had issues with transportation and no family was available at home therefore her discharge was canceled and patient was kept overnight, patient had no acute issues in last 24 hours therefore being discharged home with plan to continue using Prilosec and to add Carafate twice daily. <Ciara Rebolledo MD - Last Filed: 01/31/21 14:51> Time Spent with Patient Time attestation: Total time spent providing and/or coordinating discharge services: 35 <Ciara Rebolledo MD - Last Filed: 01/31/21 14:51> Discharge coordination time: Greater than 30 minutes <Willis Savage MD - Last Filed: 01/05/21 15:25> Quality: Stroke Does the patient have a stroke diagnosis?: No <Ciara Rebolledo MD - Last Filed: 01/31/21 14:51> Physical Exam Vital Signs: Vital Signs: Last Vital Signs Temp 97 F 01/04/21 15:04 Pulse 95 01/04/21 15:04 Resp 19 01/04/21 15:04 BP 111/66 01/04/21 15:04 Pulse Ox 94 01/04/21 15:04 Body Mass Index 27.3 <Ciara Rebolledo MD - Last Filed: 01/31/21 14:51> DS: Data Data Completed and Pending Completed studies during hospitalization [Text1]: Procedures Excision of Duodenum, Via Natural or Artificial Opening Endoscopic, Diagnostic (03/12/20) Excision of Stomach, Pylorus, Via Natural or Artificial Opening Endoscopic, Diagnostic (03/12/20) Excision of Transverse Colon, Via Natural or Artificial Opening Endoscopic, Diagnostic (03/12/20) Transfusion of Nonautologous Red Blood Cells into Peripheral Vein, Percutaneous Approach (03/12/20) <Ciara Rebolledo MD - Last Filed: 01/31/21 14:51> Pending studies at discharge: Pending at discharge 01/04/21 11:43 Surgical [PTH] Routine <Ciara Rebolledo MD - Last Filed: 01/31/21 14:51> Labs on day of discharge: Laboratory Results - last 24 hr 01/03/21 01/03/21 01/03/21 16:45 18:47 19:50 WBC 10.2 RBC 5.19 Hgb 15.7 Hct 48.6 H MCV 93.6 MCH 30.3 MCHC 32.3 RDW 11.8 Plt Count 199 MPV 10.4 Immature Gran % (Auto) 0.3 Neut % (Auto) 54.7 Lymph % (Auto) 33.8 [place] % (Auto) 9.6 Eos % (Auto) 1.3 Baso % (Auto) 0.3 Lymph # (Auto) 3.5 [place] # (Auto) 1.0 Eos # (Auto) 0.1 Baso # (Auto) 0.0 Abs Immat Gran (auto) 0.03 Absolute Neuts (auto) 5.6 Absolute Nucleated RBC 0.000 Nucleated RBC % (auto) 0.0 Sodium Potassium Chloride Carbon Dioxide Anion Gap BUN Creatinine Estim Creat Clear Calc Estimated GFR Random Glucose Calcium Troponin I High Sens 38.5 H* COVID-19 ([facility]) Negative COVID-19 Clin Com See Note 01/03/21 01/04/21 01/04/21 23:28 06:03 08:56 WBC 6.4 RBC 5.24 Hgb 16.1 H Hct 51.1 H MCV 97.5 MCH 30.7 MCHC 31.5 RDW 12.1 Plt Count 159 L MPV 11.0 Immature Gran % (Auto) 0.2 Neut % (Auto) 52.2 Lymph % (Auto) 35.5 [place] % (Auto) 9.4 Eos % (Auto) 2.2 Baso % (Auto) 0.5 Lymph # (Auto) 2.3 [place] # (Auto) 0.6 Eos # (Auto) 0.1 Baso # (Auto) 0.0 Abs Immat Gran (auto) 0.01 Absolute Neuts (auto) 3.3 Absolute Nucleated RBC 0.000 Nucleated RBC % (auto) 0.0 Sodium 139 Potassium 4.1 Chloride 105 Carbon Dioxide 27 Anion Gap 11 L BUN 22 H Creatinine 0.48 L Estim Creat Clear Calc 143.1 Estimated GFR > 60 Random Glucose 121 H Calcium 8.8 Troponin I High Sens 31.5 H* COVID-19 ([facility]) COVID-19 Clin Com Preliminary micro results at discharge 01/03/21 13:28 Blood Culture - Preliminary Blood - Venous No growth after 24 hours. <Ciara Rebolledo MD - Last Filed: 01/31/21 14:51> Discharge Plan Discharge Patient Disposition: Home, Self-Care <Ciara Rebolledo MD - Last Filed: 01/31/21 14:51> Discharge Diagnosis: Erich lesions due to hiatal hernia; melena due to Pepto-Bismol; over- suppressed TSH <Ciara Rebolledo MD - Last Filed: 01/31/21 14:51> Erich lesions due to hiatal hernia; melena due to Pepto-Bismol; over- suppressed TSH <Willis Savage MD - Last Filed: 01/05/21 15:25> Referrals: Jenae Khan MD [Primary Care Provider] - 1 Week Tonya Braun MD [Physician] - 1 Week Nick Brothers MD [Physician] - 1 Week <Ciara Rebolledo MD - Last Filed: 01/31/21 14:51> Discharge Medications: New levothyroxine 75 mcg tablet 75 mcg PO DAILY Qty: 30 RF: 0 sucralfate 1 gram tablet 1 g PO BID Qty: 60 RF: 0 Continued prednisone 5 mg tablet 3 tab PO DAILY RF: 0 nystatin 100,000 unit/gram cream 1 appl topical BID RF: 0 ferrous sulfate 325 mg (65 mg iron) tablet 1 tab PO BID RF: 0 hydroxychloroquine 200 mg tablet 1 tab PO DAILY RF: 0 pantoprazole 40 mg tablet,delayed release (DR/EC) 1 tab PO BID RF: 0 docusate sodium 100 mg capsule 1 cap PO BEDTIME PRN (Reason: Constipation) RF: 0 fluoxetine 20 mg capsule 2 cap PO DAILY RF: 0 Enbrel SureClick 50 mg/mL (1 mL) pen injector 1 syringe subcut QWEEK RF: 0 oxycodone 10 mg tablet 10 mg PO Q12H PRN (Reason: Pain, Moderate) RF: 0 cholecalciferol (vitamin D3) [Vitamin D3] 50 mcg (2,000 unit) capsule 1 cap PO BID RF: 0 Discontinued levothyroxine 100 mcg tablet 1 tab PO DAILY RF: 0 <Ciara Rebolledo MD - Last Filed: 01/31/21 14:51> Discharge Orders: Discharge Order (Routine); Ordered 01/05/21 Ordered By: Ciara Rebolledo <Ciara Rebolledo MD - Last Filed: 01/31/21 14:51> Diet: advance to usual diet <Ciara Rebolledo MD - Last Filed: 01/31/21 14:51> advance to usual diet <Willis Savage MD - Last Filed: 01/05/21 15:25> Activity on Discharge: As tolerated <Ciara Rebolledo MD - Last Filed: 01/31/21 14:51> As tolerated <Willis Savage MD - Last Filed: 01/05/21 15:25> Stand Alone Forms: Patient Portal Discharge page <Ciara Rebolledo MD - Last Filed: 01/31/21 14:51> Other Ambulatory Orders: Thyroid Stimulating Hormone (Routine) Timeframe: 4 Weeks Facility: [facility] - Location: Laboratory Ordered By: Ciara Rebolledo <Ciara Rebolledo MD - Last Filed: 01/31/21 14:51> Care Plan Goals: resolution of GI bleeding appropriate control of hypothyroidism <Ciara Rebolledo MD - Last Filed: 01/31/21 14:51> Health Concerns: Erich erosion/lesion from large hiatal hernia over-suppressed TSH <Ciara Rebolledo MD - Last Filed: 01/31/21 14:51> Plan of Treatment: take pantoprazole 40 mg twice daily and sucralfate 1 gram twice daily follow up with GI and General Surgery in 2 weeks; you need to have the hiatal hernia repair decrease levothyroxine from 100 to 75 mcg daily and recheck TSH in 4 weeks <Ciara Rebolledo MD - Last Filed: 01/31/21 14:51> Assessment: as above <Ciara Rebolledo MD - Last Filed: 01/31/21 14:51> Patient Instructions: Upper Endoscopy (DC) <Ciara Rebolledo MD - Last Filed: 01/31/21 14:51> Discharge Date/Time: 01/05/21 17:40 <Ciara Rebolledo MD - Last Filed: 01/31/21 14:51>
--- NOTE | 2021-01-04 18:02 | P.PNIM_ITS ---
Subjective Subjective Date of Service: 01/04/21 Interval History: No abd pain Underwent EGD showing no active bleeding but presence of Erich lesions related to large hiatal hernia Doesn't have a ride home [ admitted to hospital] so cannot d/c until the morning Physical Exam Vital Signs: Vital Signs: Last Vital Signs Temp 97 F 01/04/21 15:04 Pulse 95 01/04/21 15:04 Resp 19 01/04/21 15:04 BP 111/66 01/04/21 15:04 Pulse Ox 94 01/04/21 15:04 Body Mass Index 27.3 Gen: in no acute distress HEENT: sclera anicteric, moist mucus membranes Neck: supple Lungs: clear to auscultation bilaterally Heart: regular rate and rhythm, no murmurs Abd: soft, non-tender, non-distended Ext: no edema Skin: warm/well-perfused Neuro: alert and oriented x3, no focal findings Psych: appropriate affect Objective Data Current Medications Generic Name Dose Route Start Last Admin Trade Name Freq PRN Reason Stop Dose Admin Acetaminophen 650 mg 01/03/21 21:37 Acetaminophen 325 Mg Tablet PO Q6H PRN Pain, Mild (Pain Scale 1-3) Fluoxetine HCl 40 mg 01/04/21 09:00 01/04/21 12:59 Fluoxetine Hcl 20 Mg Capsule PO 40 mg DAILY [facility] Administration Hydroxychloroquine Sulfate 200 mg 01/04/21 09:00 01/04/21 12:58 Hydroxychloroquine Sulfate 200 Mg Tablet PO 200 mg DAILY [facility] Administration Levothyroxine Sodium 50 mcg 01/05/21 06:00 Levothyroxine Sodium 50 Mcg Tablet PO DAILY@0600 [facility] Lorazepam 1 mg 01/04/21 15:34 01/04/21 15:47 Lorazepam 2 Mg/Ml Vial IVPUSH 1 mg Q6H PRN Administration anxiety Morphine Sulfate 4 mg 01/03/21 21:37 Morphine Sulfate 4 Mg/Ml Cartridge IVPUSH Q4H PRN Pain, Severe (Pain Scale 7-10) Nystatin 1 appl 01/04/21 09:00 01/04/21 12:59 Nystatin Cream 15 Gm Tube TOPICAL Not Given BID [facility] Protocol Ondansetron HCl 4 mg 01/03/21 21:37 Ondansetron Hcl 4 Mg/2 Ml Vial IVPUSH Q8H PRN Nausea and Vomiting Oxycodone HCl 10 mg 01/03/21 21:37 Oxycodone Hcl Immed Release 5 Mg Tablet PO Q12H PRN Pain, Moderate Pantoprazole Sodium 40 mg 01/04/21 06:30 01/04/21 15:43 Pantoprazole Sodium 40 Mg/10 Ml Vial IVPUSH 40 mg BID@0630,5740 [facility] Administration Pharmacy Consult 1 each 01/03/21 17:14 Consult Rx Perform Med Rec MISCELLANE ONCE PRN Consult order Prednisone 15 mg 01/04/21 09:00 01/04/21 12:58 Prednisone 5 Mg Tablet PO 15 mg DAILY [facility] Administration Sodium Chloride 3 ml 01/04/21 00:00 01/04/21 15:49 0.9 % Sodium Chloride Flush 3 Ml Syringe IVFLUSH 3 ml QSHIFT [facility] Administration Vitamin D 50 mcg 01/04/21 09:00 01/04/21 12:57 Cholecalciferol (Vitamin D3) 25 Mcg Tablet PO 50 mcg BID [facility] Administration Labs CBC & Chem 7: 01/04/21 06:03 01/04/21 08:56 Labs: Laboratory Results - last 24 hr 01/03/21 01/03/21 01/03/21 18:47 19:50 23:28 MCV MCH MCHC RDW Plt Count MPV Immature Gran % (Auto) Neut % (Auto) Lymph % (Auto) [place] % (Auto) Eos % (Auto) Baso % (Auto) Lymph # (Auto) [place] # (Auto) Eos # (Auto) Baso # (Auto) Abs Immat Gran (auto) Absolute Neuts (auto) Absolute Nucleated RBC Nucleated RBC % (auto) Anion Gap Estim Creat Clear Calc Estimated GFR Random Glucose Calcium Troponin I High Sens 38.5 H* 31.5 H* COVID-19 ([facility]) Negative COVID-19 Clin Com See Note 01/04/21 01/04/21 06:03 08:56 MCV 97.5 MCH 30.7 MCHC 31.5 RDW 12.1 Plt Count 159 L MPV 11.0 Immature Gran % (Auto) 0.2 Neut % (Auto) 52.2 Lymph % (Auto) 35.5 [place] % (Auto) 9.4 Eos % (Auto) 2.2 Baso % (Auto) 0.5 Lymph # (Auto) 2.3 [place] # (Auto) 0.6 Eos # (Auto) 0.1 Baso # (Auto) 0.0 Abs Immat Gran (auto) 0.01 Absolute Neuts (auto) 3.3 Absolute Nucleated RBC 0.000 Nucleated RBC % (auto) 0.0 Anion Gap 11 L Estim Creat Clear Calc 143.1 Estimated GFR > 60 Random Glucose 121 H Calcium 8.8 Troponin I High Sens COVID-19 ([facility]) COVID-19 Clin Com Microbiology Microbiology Results: Microbiology 01/03/21 13:28 Blood Culture - Preliminary Blood - Venous No growth after 24 hours. Assessment and Plan (1) Erich lesion, chronic: Status: Acute (2) Melena: Status: Acute Assessment and Plan: hospital d#2 52yo F with hx NSTEMI, stomach ulcer, RA admitted for coffee-ground emesis/melena without anemia on EGD found to have Erich lesions # Erich lesions due to large hiatal hernia - continue bid PPI, start sucralfate, GI f/u, surgery consult as outpt to repair hiatal hernia # melena - attributed to Pepto- Bismol # over-suppressed TSH - decrease LT4 from 100 mcg/d to 75 mcg/d and recheck TSH in 4 wk # RA - continue prednisone, hydroxychloroquine, etanercept # VTE ppx - SCDs # dispo - anticipate home in am Quality Stroke Does the patient have a stroke diagnosis?: No VTE Prior VTE?: No VTE Risk Level:: Medical - moderate - high VTE Device Contraindication: N/A - Device Ordered VTE Drug Contraindication: Treatment Not Tolerated
[2021-01-04] MEDS: Nystatin Cream 15 GM TUBE 1 APPL TOPICAL (20:13)
[2021-01-05 00:12] VITALS: PULSE 85; RESP 14; O2SAT 95
[2021-01-05 03:07] VITALS: BP 130/75; PULSE 56; RESP 19; TEMP 36.4; O2SAT 96
[2021-01-05] MEDS: Pantoprazole Sodium 40 MG/10 ML VIAL IVPUSH ×2 (06:01→16:30)
[2021-01-05] MEDS: Levothyroxine Sodium 50 MCG TABLET PO (06:06)
[2021-01-05 06:40] LABS: Hematocrit 38.9 % (37-47); Hemoglobin 12.8 g/dl (12.0-16.0); Mean Corpuscular HGB Conc 32.9 g/dl (31.0-35.0); Mean Corpuscular Hemoglobin 31.1 pg (27.0-33.0); Mean Corpuscular Volume 94.4 fL (80-98); Mean Platelet Volume 10.9 fL (9.4-12.3); Platelet Count 149 X10*3/uL (160-400); Red Blood Count 4.12 X10*6/uL (4.20-5.50); Red Cell Distribution Width 11.9 % (11.0-16.0); White Blood Count 9.4 X10*3/uL (4.8-10.8)
[2021-01-05 06:59] VITALS: BP 100/54; PULSE 77; RESP 20; TEMP 35.5; O2SAT 95
[2021-01-05 07:11] LABS: Anion Gap 12 (12-20); Blood Urea Nitrogen 16 mg/dL (9-16); Calcium 9.2 mg/dL (8.4-10.2); Carbon Dioxide 28 mmol/L (22-29); Chloride 104 mmol/L (96-108); Creatinine Clr Calc Pharmacy 149.3; Estimated Glomerular Filt Rate > 60; Glucose Random 88 mg/dL (60-115); Potassium 4.1 mmol/L (3.3-5.1); Sodium 140 mmol/L (135-145)
--- NOTE | 2021-01-05 08:14 | HO.POSTANES ---
Post Anesthesia Evaluation Post Anesthesia Evaluation Vital Signs: Vital Signs Temp Pulse Resp BP Pulse Ox 01/05/21 06:59 96 F L 77 20 100/54 L 95 01/05/21 03:07 97.5 F 56 19 130/75 96 01/05/21 00:12 14 01/04/21 23:25 97.5 F 76 18 141/84 H 100 Anesthesia: Monitored Mental Status: Awake Pain Control: Satisfactory Nausea/Vomiting: None Hydration: Adequate Anesthesia-Related Issues: No Anes. Related Issues
[2021-01-05] MEDS: 0.9 % Sodium Chloride Flush 3 ML SYRINGE IVFLUSH ×2 (09:02→16:33)
[2021-01-05] MEDS: FLUoxetine HCl 20 MG CAPSULE 40 MG PO (09:02)
[2021-01-05] MEDS: Cholecalciferol (Vitamin D3) 25 MCG TABLET 50 MCG PO (09:02)
[2021-01-05] MEDS: predniSONE 5 MG TABLET 15 MG PO (09:02)
[2021-01-05] MEDS: Hydroxychloroquine Sulfate 200 MG TABLET PO (09:02)
[2021-01-05 11:01] VITALS: BP 112/58; PULSE 74; RESP 19; TEMP 36; O2SAT 94
--- NOTE | 2021-01-05 12:25 | MHC.CM.PN ---
pt will DC home today with resumption of her [employer] services. Chair van transport via [facility] scheduled for 1300 hours
--- NOTE | 2021-01-05 14:36 | MHC.CM.PN ---
Addendum entered by Cherry Rubin 01/05/21 16:23: CM SPOKE TO PTS SISTER NAI WHO REPORTED SHE COULD BE AT THE PTS HOME AT 1700 HOURS TO MEET HER. PT INFORMED AND BLS TRANSPORT ARRANGED FOR 1644 Original Note: PT CLEARED FOR DC HOWEVER REPORTS SHE CANNOT GO HOME BECAUSE NO ONE IS THERE. HER WAS HERE BUT IS BEING TRANSFERRED TO [facility] AND HER BOTTLE DEALER IS AT HER OTHER JOB AT [employer]. SHE REPORTS SHE TRIED CALLING HER SISTER NAI BUT SHE DID NOT ANSWER. PT PROVIDED THE PHONE NUMBER FOR HER SISTER, , AND ASKED T/W TO CONTINUE TRYING. CURRENT DC PLAN IS HOME WITH RESUMPTION OF BOTTLE DEALER SERVICES PT WILL BE TRANSPORTED VIA [facility] ONCE SOMEONE IS LOCATED THAT CAN MEET HER AT HER HOME TO ASSIST UNTIL HER BOTTLE DEALER IS AVAILABLE
[2021-01-05 15:26] VITALS: BP 127/73; PULSE 86; RESP 20; TEMP 36.3; O2SAT 95
== END 2021-01-05 17:40 | disposition home or self-care (01) | DRG 384 ==
LOC: HO.ED 17:28 → HO.EDOVER 21:59 → HO.IMC 01-04 07:27
PROVIDERS: Family Medicine; Internal Medicine Gastroenterology; Physician Assistant Medical; Admitting Provider Internal Medicine; Emergency Provider Emergency Medicine Emergency Medical Services; PCP Pediatrics; Visit Provider Hospitalist
PROC: 0DJ08ZZ Inspection of Upper Intestinal Tract, Via Natural or Artificial Opening Endoscopic (ICD-10-PCS; CPT 43235; principal; 2021-01-04 16:00)
DX: K25.3 Acute gastric ulcer without hemorrhage or perforation (principal); E03.9 Hypothyroidism, unspecified; M06.9 Rheumatoid arthritis, unspecified; F32.9 Major depressive disorder, single episode, unspecified; G47.33 Obstructive sleep apnea (adult) (pediatric); I25.2 Old myocardial infarction; K44.9 Diaphragmatic hernia without obstruction or gangrene; E86.0 Dehydration; K52.9 Noninfective gastroenteritis and colitis, unspecified; Z20.822 Contact with and (suspected) exposure to COVID-19; Z88.6 Allergy status to analgesic agent; Z79.52 Long term (current) use of systemic steroids; Z79.890 Hormone replacement therapy; Z79.899 Other long term (current) drug therapy
CPT/HCPCS: 36415; 74178; 80048; 80053; 82272; 83605; 83690; 83735; 84439; 84443; 84484; 85025; 85027; 87040; 87635; 88305; 88342; 93005; 94660; 99285; J2060; J2270; J2405; Q9967

== ENCOUNTER → 2021-02-28 13:40 | Outpatient (BNVA) | payer OTHER, SELFPAY | PROVIDERS: PCP Pediatrics; Visit Provider Internal Medicine Gastroenterology | DX: Z48.815 Encounter for surgical aftercare following surgery on the digestive system (principal); Z87.19 Personal history of other diseases of the digestive system | CPT/HCPCS: Q3014 ==

== ENCOUNTER 2021-04-21 19:41 | Emergency (ER) | payer OTHER, SELFPAY ==
--- NOTE | 2021-04-21 | ECG_ITS ---
Test Reason : chest wall pain Blood Pressure : / mmHG Vent. Rate : 088 BPM Atrial Rate : 088 BPM P-R Int : 118 ms QRS Dur : 100 ms QT Int : 368 ms P-R-T Axes : 040 024 012 degrees QTc Int : 445 ms Normal sinus rhythm Moderate voltage criteria for LVH, may be normal variant ( R in aVL , Jr product ) RSR' or QR pattern in V1 suggests right ventricular conduction delay Borderline ECG When compared with ECG of 03-JAN-2021 14:21, Premature atrial complexes are no longer Present ST no longer depressed in Inferior leads T wave inversion less evident in Inferior leads T wave inversion less evident in Anterior leads Referred By: Generic ED Physician Electronically Signed By:TABITHA MENDOZA MD
[2021-04-21 20:17] VITALS: BP 113/76; BP 140/80; PULSE 90; PULSE 96; RESP 20; TEMP 36.6; O2SAT 100; O2SAT 96; BMI 31.0
--- NOTE | 2021-04-21 22:39 | ED_ITS ---
HPI - General Adult General Chief complaint: General Medical <CHRISTIANO Hurt - Last Filed: 04/22/21 01:19> Stated complaint: CRISIS <CHRISTIANO Hurt - Last Filed: 04/22/21 01:19> Time Seen by Provider: 04/21/21 22:39 <CHRISTIANO Hurt - Last Filed: 04/22/21 01:19> Source: patient <CHRISTIANO Hurt - Last Filed: 04/22/21 01:19> Mode of arrival: ambulatory <CHRISTIANO Hurt Last Filed: 04/22/21 01:19> Limitations: no limitations <CHRISTIANO Hurt Last Filed: 04/22/21 01:19> History of Present Illness HPI narrative: 60 year old female past medical history significant for hypertension, hypothyroidism, thyroiditis, rheumatoid artheritits, hx NSTEMI, fibromyalgia, anxiety and depression presents to the emergency department with concerns of chest pain, anxiety and depression X2 days progressively worsening. Patient states that she usually lives at home with her daughter however, earlier this week her daughter told her that she was going to leave for work, and she never came back. Patient found out that her daughter was upset with her, and was living out of her car. Patient states that this has been causing her lot of anxiety, and depression. She reports lack of sleep, due to preoccupation. Patient states that when she feels anxious she feels substernal chest pain, that does not radiate, it is stabbing in nature and severe. Patient states she smokes marijuana, denies alcohol and tobacco use. She denies recent psych admissions or previous psych admissions. She denies recent med changes. She denies suicidal ideation and homicidal ideation. She denies visual and auditory hallucinations, but endorses tactile hallucinations and states that at times she feels as though there are bugs crawling up of her arms and legs. She is tearful and tells me that she is having a hard time caring for herself at home. Denies fevers, chills, vomiting, nausea, abdominal pain, shortness of breath, recent sick contacts. <CHRISTIANO Hurt Last Filed: 04/22/21 01:19> Onset (ago): day(s) (3) <CHRISTIANO Hurt - Last Filed: 04/22/21 01:19> Location: chest <CHRISTIANO Hurt - Last Filed: 04/22/21 01:19> Radiation: non-radiation <CHRISTIANO Hurt - Last Filed: 04/22/21 01:19> Severity: severe <CHRISTIANO Hurt - Last Filed: 04/22/21 01:19> Quality: stabbing <CHRISTIANO Hurt - Last Filed: 04/22/21 01:19> Pain Consistency: intermittent (occurs with anxiety ) <CHRISTIANO Hurt - Last Filed: 04/22/21 01:19> Relieving factors: none <CHRISTIANO Hurt - Last Filed: 04/22/21 01:19> Exacerbating factors: none <CHRISTIANO Hurt - Last Filed: 04/22/21 01:19> Associated symptoms: denies other symptoms <CHRISTIANO Hurt - Last Filed: 04/22/21 01:19> Treatments prior to arrival: none <CHRISTIANO Hurt - Last Filed: 04/22/21 01:19> Related Data Home medications: Home Medications Medication Instructions Recorded Confirmed cholecalciferol (vitamin D3) 50 1 cap PO BID 03/12/20 01/03/21 mcg (2,000 unit) capsule (Vitamin D3) docusate sodium 100 mg capsule 1 cap PO BEDTIME PRN 03/12/20 01/03/21 etanercept 50 mg/mL (1 mL) 1 syringe SUBCUT QWEEK 03/12/20 01/03/21 subcutaneous pen injector (Enbrel SureClick) oxycodone 10 mg tablet 10 mg PO Q12H PRN 03/12/20 01/03/21 pantoprazole 40 mg tablet,delayed 1 tab PO BID 03/12/20 01/03/21 release ferrous sulfate 325 mg (65 mg 1 tab PO BID 01/03/21 01/03/21 iron) tablet hydroxychloroquine 200 mg tablet 1 tab PO DAILY 01/03/21 01/03/21 prednisone 5 mg tablet 3 tab PO DAILY 01/03/21 01/03/21 fluoxetine 40 mg capsule 1 cap PO BEDTIME 04/22/21 Previous Rx's Medication Instructions Recorded levothyroxine 75 mcg tablet 75 mcg PO DAILY #30 tab 01/04/21 sucralfate 1 gram tablet 1 g PO BID #60 tab 01/04/21 <CHRISTIANO Hurt - Last Filed: 04/22/21 01:19> Allergies/adverse reactions: Allergies Allergy/AdvReac Type Severity Reaction Status Date / Time ibuprofen [From MOTRIN] Allergy Unknown ULCERS Verified 03/12/20 19:51 naproxen [From NAPROSYN] Allergy Unknown ULCERS Verified 03/12/20 19:51 <CHRISTIANO Hurt - Last Filed: 04/22/21 01:19> Review of Systems Review of Systems: Constitutional : No Weight loss, No Fever, No Chills, No Fatigue, No Malaise ENT/Mouth : No sore throat, No Rhinorrhea Eyes: No Eye Pain, No Swelling, No Redness Cardiovascular : + Chest Pain, No SOB, No Dyspnea on Exertion, No Orthopnea, No Edema, No Palpitations Respiratory : No Cough, No Sputum, No Wheezing Gastrointestinal : No Nausea, No Vomiting, No Diarrhea, No Constipation, No abdominal Pain, No Hematochezia, No Melena Genitourinary : No Dysuria, No Urinary Frequency, No Hematuria, Musculoskeletal : No joint pain, No Myalgias, No Joint Swelling Skin : No Skin Lesions, No rash Neuro : No Weakness, No Numbness, No Dizziness, No Headache Psych : + Anxiety/Panic, + Depression All other systems reviewed and are negative <CHRISTIANO Hurt - Last Filed: 04/22/21 01:19> PMF Past Medical History Attestation statement: The following information was validated with the patient. <CHRISTIANO Hurt - Last Filed: 04/22/21 01:19> Source: old records reviewed and nursing notes reviewed <CHRISTIANO Hurt Last Filed: 04/22/21 01:19> Medical History: Medical History (Updated 04/22/21 @ 01:19 by CHRISTIANO Hurt) Anemia Asthma Erich lesion, chronic Depression Episode of generalized weakness GI bleed Hypertension Hypothyroidism Insomnia Low TSH level Obesity RABIA (obstructive sleep apnea) Positive fecal occult blood test Rheumatoid arthritis Thyroiditis Ulcer <CHRISTIANO Hurt - Last Filed: 04/22/21 01:19> Surgical History: Surgical History H/O lymph node biopsy History of appendectomy History of esophagogastroduodenoscopy (EGD) Hx of colonoscopy Hx of hernia repair Status post biopsy of uterine cervix <CHRISTIANO Hurt - Last Filed: 04/22/21 01:19> Family History Family History: Family History Other Cirrhosis <CHRISTIANO Hurt - Last Filed: 04/22/21 01:19> Social History Social History: Social History Household Members: Family Housing: House Do you presently have visiting nurse or other home services: Yes ([employer]) Alcohol intake: never Patient Tobacco Use Status: Never used Tobacco Advance Directives: No Advance Directives Date on File: 03/22/20 Patient : No service: No Current occupational status: disabled 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 <CHRISTIANO Hurt - Last Filed: 04/22/21 01:19> Vital Signs: Last Vital Signs Temp 97.9 F 04/21/21 20:17 Pulse 96 04/21/21 20:17 Resp 16 04/22/21 06:00 BP 113/76 04/21/21 20:17 Pulse Ox 96 04/21/21 20:17 Body Mass Index 31.0 <CHRISTIANO Pollock - Last Filed: 04/22/21 08:54> Appearance: Alert.? Oriented X3.? No acute distress. Sitting upright in the wheelchair, tearful. Eyes: Pupils equal, round and reactive to light.? ENT: Pharynx normal.? Neck: Normal inspection.? Neck supple.? CVS: Normal heart rate and rhythm.? Pulses normal.? Respiratory: No respiratory distress.? Breath sounds normal.? Abdomen: Soft and nontender.? Skin: Skin warm and dry.? Normal skin color.? Normal skin turgor.? Extremities: No lower extremity edema.? Neuro: Oriented X 3.? No motor deficit.? No sensory deficit. CN 2-12 intact <CHRISTIANO Hurt Last Filed: 04/22/21 01:19> Course Reevaluation(s) Reevaluation #1: CBC shows no elevated white blood cell count. Transaminases noted to be elevated, this appears to be patient's baseline. Trop 4.5. Ethanol less than 10. COVID 19 positive. Patient denies shortness of breath, cough, malaise, fevers and chills. Unlikely ACS. <CHRISTIANO Hurt Last Filed: 04/22/21 01:19> Time: 23:45 <CHRISTIANO Hurt Last Filed: 04/22/21 01:19> Reevaluation #2: Patient is currently saturating 96% on room air. Patient in no respiratory distress with ambulation. At this time 0021 physician observational be initiated. Physician observation started [id number]? Patient placed in physician observation because the patient needed more time for BHN evaluation. ? At the time observation was started the patient's vitals were stable, patient is alert and oriented. Neuro: nonfocal, CV RRR, Lungs clear <CHRISTIANO Hurt Last Filed: 04/22/21 01:19> Time: 00:23 <CHRISTIANO Hurt Last Filed: 04/22/21 01:19> Reevaluation #3: 04/22/21-- 0851--physician observation continued. Vital signs are stable, no complaints overnight, patient up awake/ alert and eating this AM. COVID-19 positive. Pending BHN consult <CHRISTIANO Pollock Last Filed: 04/22/21 08:54> Additional Reevaluation(s): 0107 <CHRISTIANO Hurt - Last Filed: 04/22/21 01:19> Medical Decision Making MDM Narrative Medical decision making narrative: [id number] 60 year old female past medical history significant for hypertension, hypothyroidism, thyroiditis, rheumatoid artheritits, hx NSTEMI, fibromyalgia, anxiety and depression presents to the emergency department with concerns of intermittent severe stabbing chest pain usually accompanies her anxiety, anxiety and depression X2 days progressively worsening. Patient reports her daughter who she lives with left, and never came back. Patient is afraid that she is unable to care for self, patient denies SI and HI. Patient smokes marijuana but denies alcohol, drug and tobacco use. Patient denies auditory and visual cachorro lucinations, but states that she at times has tactile hallucinations and feels like bugs are crawling up her arms and legs. At this time she is not having chest pain. She has no previous psych admissions. No new medications. Patient is sitting upright in a wheelchair, she is tearful. S1-S2 appreciated free of murmurs. Lungs are clear to auscultation bilaterally. Abdomen soft nontender nondistended. Pupils equal round and reactive to light bilaterally. 5/5 strength upper and lower extremities. No focal neuro deficits. No lower extremity edema. Cranial nerves 2-12 intact. Head is normocephalic, atraumatic. Plan at this time is to obtain basic labs, EKG, COVID, drug screen, ethanol, UA, magnesium, troponin x1. A consult crisis has also been ordered at this time. Patient's chest pain is likely secondary to anxiety, however ACS will be ruled out. <CHRISTIANO Hurt - Last Filed: 04/22/21 01:19> Medical Records Medical records reviewed: Yes I reviewed the patient's medical records. <CHRISTIANO Hurt - Last Filed: 04/22/21 01:19> Lab Data Lab results reviewed: Yes I reviewed the patient's lab results. <CHRISTIANO Hurt Last Filed: 04/22/21 01:19> Result diagrams: : 04/21/21 23:30 04/21/21 23:30 <CHRISTIANO Hurt - Last Filed: 04/22/21 01:19> Labs: Lab Results 04/21/21 04/21/21 04/21/21 Range/Units 23:30 23:30 23:30 WBC 4.9 (4.8-10.8) X10*3/uL RBC 4.74 (4.20-5.50) X10*6/uL Hgb 13.3 (12.0-16.0) g/dl Hct 42.2 (37.0-47.0) % MCV 89.0 (80.0-98.0) fL MCH 28.1 (27.0-33.0) pg MCHC 31.5 (31.0-35.0) g/dl RDW 14.4 (11.0-16.0) % Plt Count 238 (160-400) X10*3/uL MPV 10.2 (9.4-12.3) fL Immature Gran % (Auto) 0.2 (0.0-0.4) % Neut % (Auto) 54.8 (45-73) % Lymph % (Auto) 30.1 (20-40) % [place] % (Auto) 14.3 H (2-11) % Eos % (Auto) 0.4 (0-4) % Baso % (Auto) 0.2 (0-2) % Lymph # (Auto) 1.5 (1.2-4.9) X10*3/uL [place] # (Auto) 0.7 (0.1-1.2) X10*3/uL Eos # (Auto) 0.0 (0.0-0.4) X10*3/uL Baso # (Auto) 0.0 (0.0-0.2) X10*3/uL Abs Immat Gran (auto) 0.01 (0.00-0.03) X10*3/uL Absolute Neuts (auto) 2.7 (2.0-8.3) x10*3/uL Absolute Nucleated RBC 0.000 (0.0-0.012) X10*3/uL Nucleated RBC % (auto) 0.0 (0.0-0.2) /100WBC Sodium 139 (135-145) mmol/L Potassium 4.3 (3.3-5.1) mmol/L Chloride 103 (96-108) mmol/L Carbon Dioxide 30 H (22-29) mmol/L Anion Gap 10 L (12-20) BUN 13 (9-16) mg/dL Creatinine 0.57 (0.5-1.4) mg/dL Estim Creat Clear Calc 123.8 Estimated GFR > 60 Random Glucose 121 H (60-115) mg/dL Calcium 9.2 (8.4-10.2) mg/dL Magnesium 1.8 (1.6-2.6) mg/dL Total Bilirubin 0.4 (0.0-1.0) mg/dL AST 40 H D (5-31) U/L ALT 46 H (0-31) U/L Alkaline Phosphatase 111 (39-117) U/L Troponin I High Sens (<3.5-17.0) ng/L Total Protein 7.5 (6.5-8.0) g/dL Albumin 4.0 (3.5-5.0) g/dL Ethyl Alcohol mg/dL COVID-19 ([facility]) Positive A (Negative) COVID-19 Clin Com See Note 04/21/21 04/21/21 Range/Units 23:30 23:30 WBC (4.8-10.8) X10*3/uL RBC (4.20-5.50) X10*6/uL Hgb (12.0-16.0) g/dl Hct (37.0-47.0) % MCV (80.0-98.0) fL MCH (27.0-33.0) pg MCHC (31.0-35.0) g/dl RDW (11.0-16.0) % Plt Count (160-400) X10*3/uL MPV (9.4-12.3) fL Immature Gran % (Auto) (0.0-0.4) % Neut % (Auto) (45-73) % Lymph % (Auto) (20-40) % [place] % (Auto) (2-11) % Eos % (Auto) (0-4) % Baso % (Auto) (0-2) % Lymph # (Auto) (1.2-4.9) X10*3/uL [place] # (Auto) (0.1-1.2) X10*3/uL Eos # (Auto) (0.0-0.4) X10*3/uL Baso # (Auto) (0.0-0.2) X10*3/uL Abs Immat Gran (auto) (0.00-0.03) X10*3/uL Absolute Neuts (auto) (2.0-8.3) x10*3/uL Absolute Nucleated RBC (0.0-0.012) X10*3/uL Nucleated RBC % (auto) (0.0-0.2) /100WBC Sodium (135-145) mmol/L Potassium (3.3-5.1) mmol/L Chloride (96-108) mmol/L Carbon Dioxide (22-29) mmol/L Anion Gap (12-20) BUN (9-16) mg/dL Creatinine (0.5-1.4) mg/dL Estim Creat Clear Calc Estimated GFR Random Glucose (60-115) mg/dL Calcium (8.4-10.2) mg/dL Magnesium (1.6-2.6) mg/dL Total Bilirubin (0.0-1.0) mg/dL AST (5-31) U/L ALT (0-31) U/L Alkaline Phosphatase (39-117) U/L Troponin I High Sens 4.5 D (<3.5-17.0) ng/L Total Protein (6.5-8.0) g/dL Albumin (3.5-5.0) g/dL Ethyl Alcohol < 10 mg/dL COVID-19 ([facility]) (Negative) COVID-19 Clin Com <CHRISTIANO Hurt - Last Filed: 04/22/21 01:19> Lab Results 04/21/21 04/21/21 04/21/21 Range/Units 23:30 23:30 23:30 WBC 4.9 (4.8-10.8) X10*3/uL RBC 4.74 (4.20-5.50) X10*6/uL Hgb 13.3 (12.0-16.0) g/dl Hct 42.2 (37.0-47.0) % MCV 89.0 (80.0-98.0) fL MCH 28.1 (27.0-33.0) pg MCHC 31.5 (31.0-35.0) g/dl RDW 14.4 (11.0-16.0) % Plt Count 238 (160-400) X10*3/uL MPV 10.2 (9.4-12.3) fL Immature Gran % (Auto) 0.2 (0.0-0.4) % Neut % (Auto) 54.8 (45-73) % Lymph % (Auto) 30.1 (20-40) % [place] % (Auto) 14.3 H (2-11) % Eos % (Auto) 0.4 (0-4) % Baso % (Auto) 0.2 (0-2) % Lymph # (Auto) 1.5 (1.2-4.9) X10*3/uL [place] # (Auto) 0.7 (0.1-1.2) X10*3/uL Eos # (Auto) 0.0 (0.0-0.4) X10*3/uL Baso # (Auto) 0.0 (0.0-0.2) X10*3/uL Abs Immat Gran (auto) 0.01 (0.00-0.03) X10*3/uL Absolute Neuts (auto) 2.7 (2.0-8.3) x10*3/uL Absolute Nucleated RBC 0.000 (0.0-0.012) X10*3/uL Nucleated RBC % (auto) 0.0 (0.0-0.2) /100WBC Sodium 139 (135-145) mmol/L Potassium 4.3 (3.3-5.1) mmol/L Chloride 103 (96-108) mmol/L Carbon Dioxide 30 H (22-29) mmol/L Anion Gap 10 L (12-20) BUN 13 (9-16) mg/dL Creatinine 0.57 (0.5-1.4) mg/dL Estim Creat Clear Calc 123.8 Estimated GFR > 60 Random Glucose 121 H (60-115) mg/dL Calcium 9.2 (8.4-10.2) mg/dL Magnesium 1.8 (1.6-2.6) mg/dL Total Bilirubin 0.4 (0.0-1.0) mg/dL AST 40 H D (5-31) U/L ALT 46 H (0-31) U/L Alkaline Phosphatase 111 (39-117) U/L Troponin I High Sens (<3.5-17.0) ng/L Total Protein 7.5 (6.5-8.0) g/dL Albumin 4.0 (3.5-5.0) g/dL Ethyl Alcohol mg/dL COVID-19 ([facility]) Positive A (Negative) COVID-19 Clin Com See Note 04/21/21 04/21/21 Range/Units 23:30 23:30 WBC (4.8-10.8) X10*3/uL RBC (4.20-5.50) X10*6/uL Hgb (12.0-16.0) g/dl Hct (37.0-47.0) % MCV (80.0-98.0) fL MCH (27.0-33.0) pg MCHC (31.0-35.0) g/dl RDW (11.0-16.0) % Plt Count (160-400) X10*3/uL MPV (9.4-12.3) fL Immature Gran % (Auto) (0.0-0.4) % Neut % (Auto) (45-73) % Lymph % (Auto) (20-40) % [place] % (Auto) (2-11) % Eos % (Auto) (0-4) % Baso % (Auto) (0-2) % Lymph # (Auto) (1.2-4.9) X10*3/uL [place] # (Auto) (0.1-1.2) X10*3/uL Eos # (Auto) (0.0-0.4) X10*3/uL Baso # (Auto) (0.0-0.2) X10*3/uL Abs Immat Gran (auto) (0.00-0.03) X10*3/uL Absolute Neuts (auto) (2.0-8.3) x10*3/uL Absolute Nucleated RBC (0.0-0.012) X10*3/uL Nucleated RBC % (auto) (0.0-0.2) /100WBC Sodium (135-145) mmol/L Potassium (3.3-5.1) mmol/L Chloride (96-108) mmol/L Carbon Dioxide (22-29) mmol/L Anion Gap (12-20) BUN (9-16) mg/dL Creatinine (0.5-1.4) mg/dL Estim Creat Clear Calc Estimated GFR Random Glucose (60-115) mg/dL Calcium (8.4-10.2) mg/dL Magnesium (1.6-2.6) mg/dL Total Bilirubin (0.0-1.0) mg/dL AST (5-31) U/L ALT (0-31) U/L Alkaline Phosphatase (39-117) U/L Troponin I High Sens 4.5 D (<3.5-17.0) ng/L Total Protein (6.5-8.0) g/dL Albumin (3.5-5.0) g/dL Ethyl Alcohol < 10 mg/dL COVID-19 ([facility]) (Negative) COVID-19 Clin Com <CHRISTIANO Pollock - Last Filed: 04/22/21 08:54> ECG Data Attestation: I personally reviewed and interpreted this ECG as follows: <CHRISTIANO Hurt - Last Filed: 04/22/21 01:19> Prior ECG tracings: available for review <CHRISTIANO Hurt Last Filed: 04/22/21 01:19> Interpretation: Of 88, [place] interval normal, QRS normal QT/QTC normal. EKG shows normal sinus rhythm. There are T-wave inversions in the inferior leads, and anterior leads. No ST elevations. No acute ischemia. No acute changes when compared to previous December <CHRISTIANO Hurt Last Filed: 04/22/21 01:19> Critical Care Time Critical Care Time Critical Care Time: No <CHRISTIANO Hurt Last Filed: 04/22/21 01:19> Discharge Plan Discharge Clinical Impression: Anxiety, Depression, Chest pain not due to acute coronary syndrome, COVID <CHRISTIANO Hurt Last Filed: 04/22/21 01:19> Prescriptions: No Action prednisone 5 mg tablet 3 tab PO DAILY RF: 0 ferrous sulfate 325 mg (65 mg iron) tablet 1 tab PO BID RF: 0 hydroxychloroquine 200 mg tablet 1 tab PO DAILY RF: 0 levothyroxine 75 mcg tablet 75 mcg PO DAILY Qty: 30 RF: 0 sucralfate 1 gram tablet 1 g PO BID Qty: 60 RF: 0 pantoprazole 40 mg tablet,delayed release (DR/EC) 1 tab PO BID RF: 0 docusate sodium 100 mg capsule 1 cap PO BEDTIME PRN (Reason: Constipation) RF: 0 Enbrel SureClick 50 mg/mL (1 mL) pen injector 1 syringe subcut QWEEK RF: 0 oxycodone 10 mg tablet 10 mg PO Q12H PRN (Reason: Pain, Moderate) RF: 0 cholecalciferol (vitamin D3) [Vitamin D3] 50 mcg (2,000 unit) capsule 1 cap PO BID RF: 0 fluoxetine 40 mg capsule 1 cap PO BEDTIME RF: 0 <CHRISTIANO Hurt - Last Filed: 04/22/21 01:19>
[2021-04-21 23:35] LABS: MANUAL DIFF FLAG NO
[2021-04-21 23:36] LABS: Basophils Percent Auto 0.2 % (0-2); Eosinophils Percent Auto 0.4 % (0-4); Hematocrit 42.2 % (37.0-47.0); Hemoglobin 13.3 g/dl (12.0-16.0); Imm Gran Abs Auto 0.01 X10*3/uL (0.00-0.03); Imm Gran Pct Auto 0.2 % (0.0-0.4); Lymphocytes Absolute Auto 1.5 X10*3/uL (1.2-4.9); Lymphocytes Percent Auto 30.1 % (20-40); Mean Corpuscular HGB Conc 31.5 g/dl (31.0-35.0); Mean Corpuscular Hemoglobin 28.1 pg (27.0-33.0); Mean Platelet Volume 10.2 fL (9.4-12.3); Monocytes Absolute Auto 0.7 X10*3/uL (0.1-1.2); Monocytes Percent Auto 14.3 % (2-11); Neutrophils Absolute Auto 2.7 x10*3/uL (2.0-8.3); Neutrophils Percent Auto 54.8 % (45-73); Platelet Count 238 X10*3/uL (160-400); Red Blood Count 4.74 X10*6/uL (4.20-5.50); Red Cell Distribution Width 14.4 % (11.0-16.0); White Blood Count 4.9 X10*3/uL (4.8-10.8)
[2021-04-21 23:45] LABS: COVID-19 Test Positive (Negative)
[2021-04-21 23:50] LABS: Ethanol < 10 mg/dL
[2021-04-21 23:54] LABS: Alanine Aminotransferase 46 U/L (0-31); Alkaline Phosphatase 111 U/L (39-117); Anion Gap 10 (12-20); Aspartate Amino Transferase 40 U/L (5-31); Bilirubin Total 0.4 mg/dL (0.0-1.0); Blood Urea Nitrogen 13 mg/dL (9-16); Calcium 9.2 mg/dL (8.4-10.2); Carbon Dioxide 30 mmol/L (22-29); Chloride 103 mmol/L (96-108); Creatinine Clr Calc Pharmacy 123.8; Estimated Glomerular Filt Rate > 60; Glucose Random 121 mg/dL (60-115); Magnesium 1.8 mg/dL (1.6-2.6); Potassium 4.3 mmol/L (3.3-5.1); Sodium 139 mmol/L (135-145); Total Protein 7.5 g/dL (6.5-8.0)
[2021-04-21 23:57] LABS: Troponin-I High Sensitivity 4.5 ng/L (<3.5-17.0)
--- NOTE | 2021-04-22 01:02 | PC.NURSE ---
This RN at bedside w/ dogger, pt unwilling to change into gown and to have belongings locked up. vending supervisor and charge authorizer [place] also to bedside. Pt educated repeatedly on need to change and have belongings removed in order to see BHN. Pt continues to state I'm not crazy. Further education attempted regarding policy regardless of diagnosis, pt remains hysterical and difficult to reason with. After 30+ min of therapeutic communication by all staff members aforementioned, pt changed into gown and belongings bagged and locked up by security. Retained possession of cell phone at this time
[2021-04-22 02:00] VITALS: RESP 16
[2021-04-22 06:00] VITALS: RESP 16
[2021-04-22 08:51] LABS: Appearance Urine HAZY; Color Urine YELLOW; Glucose Urine UA NEG (NEG); Leukocyte Esterase Urine 2+ (NEG); Nitrite Urine NEG (NEG); PH 6.5 (5.0-8.0); UACC Culture Trigger YES; Urine Blood NEG (NEG); Urine Ketones NEG (NEG); Urine Protein TRACE MG/DL (NEG-TRACE)
[2021-04-22 09:21] LABS: Bacteria Urine TRACE /LPF; Mucus Urine TRACE /LPF; RBC Urine 0-2 /HPF (0); Squamous Epithelial Cell Urine TRACE /LPF
--- NOTE | 2021-04-22 09:35 | PHA.MEDREC ---
Pharmacy Consult ? Medication Reconciliation Pharmacy has completed the medication reconciliation. Patient is not taking Enbrel anymore. Per patient, she was told to hold dose as Credit Collections Analyst is looking to start a new infusion/trial different med soon Thanks Brandon Hallman
[2021-04-22 09:40] LABS: Amphetamine Screen Urine Not Detected (Not Detect); Barbiturates, Urine Not Detected (Not Detect); Benzodiazepines Screen Urine Not Detected (Not Detect); Cannabinoid Screen Urine Not Detected (Not Detect); Cocaine Screen Urine Not Detected (Not Detect); Fentanyl, urine Not Detected (Not Detect); Opiate Screen Urine Not Detected (Not Detect); Phencyclidine Screen Urine Not Detected (Not Detect)
[2021-04-22 10:13] VITALS: BP 128/84; PULSE 92; RESP 18; TEMP 36.9; O2SAT 96
== END 2021-04-22 16:47 | disposition home or self-care (01) ==
PROVIDERS: Physician Assistant; Emergency Provider Internal Medicine; PCP Pediatrics
DX: U07.1 COVID-19 (principal); R07.9 Chest pain, unspecified; F32.A Depression, unspecified; F41.9 Anxiety disorder, unspecified; N39.0 Urinary tract infection, site not specified; I10 Essential (primary) hypertension; J45.909 Unspecified asthma, uncomplicated; Z79.899 Other long term (current) drug therapy; I25.2 Old myocardial infarction
CPT/HCPCS: 36415; 80053; 80307; 81001; 82077; 83735; 84484; 85025; 87086; 87147; 87635; 93005; 99284

== ENCOUNTER 2023-09-01 10:19 | Inpatient (IN) | payer OTHER, SELFPAY ==
[2023-09-01] VITALS (75 sets, daily range): BP systolic 49–139; BP diastolic 20–89; PULSE 67–117; RESP 6–28; TEMP 30–38.6; O2SAT 74–99; BMI 35.2; BMI 34.7
--- NOTE | ~2023-09-01 | US_ITS ---
EXAMINATION: US ARTERIAL DUPLEX, RIGHT LOWER EXTREMITY CLINICAL INFORMATION: Cold right lower extremity. COMPARISON: None available. TECHNIQUE: Color-flow duplex imaging and spectral waveform analysis was performed on the lower extremity arteries. FINDINGS: There is mild plaque noted within the right common femoral and popliteal artery. The right common femoral, profunda femoral, femoral artery as well as popliteal artery and calf vessels are patent. There is normal flow velocity throughout. US/US arterial duplex LE RT IMPRESSION: Mild plaque noted within the right common femoral and popliteal artery. No evidence of hemodynamically significant stenosis.
--- NOTE | ~2023-09-01 | XR_ITS ---
EXAMINATION: XR CHEST CLINICAL INFORMATION: Unresponsive COMPARISON: Chest radiograph from 03/15/2020 TECHNIQUE: Frontal view of the chest was obtained. FINDINGS: Endotracheal tube approximately 4.2 cm from the level of the lena. Enteric tube coursing below left hemidiaphragm into the stomach. Bilateral low lung volumes. Patchy radiopacities throughout the bilateral lung briceno potentially representing infectious/inflammatory etiology though vascular congestion not excluded. Small left pleural effusion. No pneumothorax. Trachea is midline. Cardiac mediastinal silhouette is stable. Osseous structures are intact. Soft tissues are unremarkable. XR/XR chest 1V IMPRESSION: 1. Endotracheal tube approximately 4.2 cm from the level of the lena. 2. Enteric tube coursing below left hemidiaphragm into the stomach. 3. Bilateral low lung volumes. 4. Patchy radiopacities throughout the bilateral lung briceno potentially representing infectious/inflammatory etiology though vascular congestion not excluded. 5. Small left pleural effusion.
--- NOTE | ~2023-09-01 | XR_ITS ---
EXAMINATION: XR CHEST CLINICAL INFORMATION: Tachypnea COMPARISON: 09/02/2023 TECHNIQUE: Frontal view of the chest was obtained. FINDINGS: Lung volumes are symmetric. Moderately extensive multifocal airspace opacities bilaterally, throughout the right lung and in the left perihilar region. Appearance in the right lung has slightly improved compared to prior. No evidence of pneumothorax. Persistent dense retrocardiac opacity. There is suggestion of small pleural effusions. The cardiomediastinal silhouette is stable. No acute osseous findings are seen. XR/XR chest 1V IMPRESSION: Moderately extensive multifocal airspace opacities bilaterally, right greater than left. Appearance in the right lung has slightly improved compared to prior.
--- NOTE | ~2023-09-01 | XR_ITS ---
EXAMINATION: XR CHEST CLINICAL INFORMATION: Hypoxia COMPARISON: Chest x-ray on 09/09/2023 TECHNIQUE: Frontal view of the chest was obtained. FINDINGS: vascularity. LUNGS: Diffuse vascular and interstitial prominence is seen in bilateral lungs. Reticular interstitial densities are more prominent in the right lung. There is effacement of left lateral costophrenic angle. No pneumothorax is seen. BONES: Bony skeleton is intact. XR/XR chest 1V IMPRESSION: 1. Persistent bilateral vascular and interstitial prominence in bilateral lungs. 2. Interval decrease in superimposed alveolar infiltrates in medial right lung especially right lower lobe. 3. Persistent small left pleural effusion or lateral left lung base focal atelectasis.
--- NOTE | ~2023-09-01 | MR_ITS ---
EXAMINATION: MR BRAIN WITHOUT CONTRAST CLINICAL INFORMATION: Cardiac arrest. Encephalopathy. COMPARISON: CT head from 03/17/2020. TECHNIQUE: MRI of the brain was obtained using routine sequences without contrast. FINDINGS: No focal restricted diffusion is demonstrated to suggest acute or subacute cerebral ischemia. No evidence of acute or chronic hemorrhagic products on heme-sensitive imaging. Chronic lacunar infarct versus prominent perivascular space along the posterior aspect of the right lentiform nucleus. Scattered periventricular and deep white matter T2 FLAIR hyperintensities consistent with mild underlying microangiopathy. The ventricles are normal in morphology and size. No abnormal mass effect. No midline shift. Normal appearance of the pituitary gland. Normal positioning of the cerebellar tonsils. Normal arterial and venous vascular flow voids are present. Normal, homogeneous marrow signal. The patient is intubated. Layering fluid within the pharynx, presumably related to intubation. Mild mucosal thickening of the paranasal sinuses. Prominent bilateral mastoid effusions. Left-sided lens extraction. MR/MR head/brain wo con IMPRESSION: 1. No acute intracranial abnormalities. 2. Mild underlying microangiopathy. Chronic lacunar infarct versus prominent perivascular space along the posterior aspect of the right lentiform nucleus.
--- NOTE | ~2023-09-01 | XR_ITS ---
EXAMINATION: XR CHEST CLINICAL INFORMATION: Left IJ central line placement. COMPARISON: 09/01/2023. TECHNIQUE: Frontal view of the chest was obtained. FINDINGS: The lung volumes are low and the patient is rotated. The cardiomediastinal silhouette is stable. Bilateral increased markings and patchy infiltrative change is again seen. There is an endotracheal tube in a stable position. A gastric tube extends inferiorly. Tip of the gastric tube is not seen. There is been interval placement of a left approach central line with tip at the mid SVC. No pneumothorax is seen. The bony structures and soft tissues are unremarkable XR/XR chest 1V IMPRESSION: 1. Interval placement of left approach central line with tip at the mid SVC. No pneumothorax. 2. Low lung volumes with bilateral increased markings and patchy infiltrative change, similar to the previous study.
[2023-09-01] MEDS: Dextrose 50 % 25 GM/50 ML SYRINGE IVPUSH ×3 (10:26→10:41)
--- NOTE | 2023-09-01 10:26 | ECG_ITS ---
Test Reason : UNRESPONSIVE Blood Pressure : / mmHG Vent. Rate : 081 BPM Atrial Rate : 081 BPM P-R Int : 138 ms QRS Dur : 116 ms QT Int : 468 ms P-R-T Axes : 063 085 041 degrees QTc Int : 543 ms Normal sinus rhythm Nonspecific ST abnormality Prolonged QT Abnormal ECG When compared with ECG of 21-APR-2021 23:16, QT has lengthened Referred By: Yanely Cordero Electronically Signed By:Pollo Pineda
[2023-09-01] MEDS: Etomidate 20 MG/10 ML VIAL IVPUSH (10:27)
[2023-09-01] MEDS: Succinylcholine Chloride 200 MG/10 ML VIAL 100 MG IVPUSH (10:32)
[2023-09-01] MEDS: EPINEPHrine 1 MG/10 ML SYRINGE IVPUSH ×2 (10:37→10:40)
[2023-09-01] MEDS: Sodium Bicarbonate 8.4% 50 MEQ/50 ML SYRINGE IVPUSH (10:39)
[2023-09-01] MEDS: propofoL 1,000 MG/100 ML VIAL 28.8 MG IVCONT ×4 (10:46→21:13)
[2023-09-01 10:55] LABS: MANUAL DIFF FLAG NO
[2023-09-01] MEDS: Norepinephrine Bitartrate/D5W 8 MG/250 ML PLAST..BAG 9 MG IV (11:00)
[2023-09-01 11:04] LABS: Basophils Percent Auto 0.4 % (0-2); Hematocrit 43.5 % (37.0-47.0); Imm Gran Pct Auto 1.3 % (0.0-0.4); Lymphocytes Absolute Auto 1.6 X10*3/uL (1.2-4.9); Lymphocytes Percent Auto 20.8 % (20-40); Mean Corpuscular HGB Conc 29.9 g/dl (31.0-35.0); Mean Corpuscular Hemoglobin 31.3 pg (27.0-33.0); Mean Corpuscular Volume 104.6 fL (80.0-98.0); Mean Platelet Volume 9.4 fL (9.4-12.3); Monocytes Absolute Auto 0.3 X10*3/uL (0.1-1.2); NRBC Pct Auto 0.4 /100WBC (0.0-0.2); Neutrophils Absolute Auto 5.6 x10*3/uL (2.0-8.3); Neutrophils Percent Auto 73.5 % (45-73); Platelet Count 218 X10*3/uL (160-400); Red Blood Count 4.16 X10*6/uL (4.20-5.50); Red Cell Distribution Width 13.9 % (11.0-16.0); White Blood Count 7.6 X10*3/uL (4.8-10.8)
[2023-09-01] MEDS: fentaNYL citrate/NS 1,000 MCG/100 ML PLAST..BAG 2.5 MCG IVCONT (11:05)
--- NOTE | 2023-09-01 11:07 | ED_ITS ---
HPI - General Adult General Chief complaint: Cardiac Arrest/CPR Stated complaint: FOUND UNRESPONSIVE INCONTINENT Time Seen by Provider: 09/01/23 10:20 Source: family ( sister), EMS and old records reviewed Mode of arrival: EMS Limitations: altered mental status History of Present Illness HPI narrative: a 62-year-old female came in after was found unresponsive at her house, as per EMS report patient was found an unkempt house imbedded in feces and urine, bugs was noticed by EMS in the house, as per sister patient suffer from severe arthritis and she is almost bed ridden for the past few years, sister Ortho reported that the patient did not see her PCP for the last 3 years patient was transported to the hospital on arrival found to be cyanotic, dry vomitus around the mouth, mottled, unresponsive vital signs initially heart rate of 100, O2 sat 70%, BP undetectable. patient was intubated immediately, due to poor IV access had a right triple-lumen venous catheter to the right femoral vein, then she lost a pulse CPR was started, epinephrine 1 mg x2, 1 amp of bicarb, patient was hypoglycemic BS was in the 20s was given 2 amps of D50, pulse was regained and CPR was discontinued. Propofol for sedation was started, blood pressure started to drop Levophed drip was started. I had a lengthy conversation with the sister who does not know much about patient's medical history, last known well was yesterday. Sister stated that the patient had a history of depression and anxiety, no known history of alcohol abuse or drug abuse. Related Data Home Medications Medication Instructions Recorded Confirmed cholecalciferol (vitamin D3) 50 1 cap PO BID 03/12/20 04/22/21 mcg (2,000 unit) capsule (Vitamin D3) oxycodone 10 mg tablet 10 mg PO BID PRN Pain, Moderate 03/12/20 04/22/21 pantoprazole 40 mg tablet,delayed 1 tab PO DAILY@0630 03/12/20 04/22/21 release ferrous sulfate 325 mg (65 mg 1 tab PO DAILY 01/03/21 04/22/21 iron) tablet hydroxychloroquine 200 mg tablet 1 tab PO DAILY 01/03/21 04/22/21 prednisone 5 mg tablet 1 tab PO DAILY 01/03/21 04/22/21 ascorbic acid (vitamin C) 500 mg 500 mg PO DAILY 04/22/21 04/22/21 tablet fluoxetine 40 mg capsule 1 cap PO DAILY 04/22/21 04/22/21 melatonin 3 mg tablet 6 mg PO BEDTIME PRN Insomnia 04/22/21 04/22/21 gabapentin 300 mg capsule 300 mg PO BEDTIME 09/01/23 Previous Rx's Medication Instructions Recorded levothyroxine 75 mcg tablet 75 mcg PO DAILY #30 tabs 01/04/21 sucralfate 1 gram tablet 1 g PO BID #60 tabs 01/04/21 Allergies Allergy/AdvReac Type Severity Reaction Status Date / Time ibuprofen [From MOTRIN] Allergy Unknown ULCERS Verified 03/12/20 19:51 naproxen [From NAPROSYN] Allergy Unknown ULCERS Verified 03/12/20 19:51 Review of Systems 2 Review of Systems: Yes Unobtainable due to mental condition [facility] Past Medical History Medical History Erich lesion, chronic Low TSH level Episode of generalized weakness Positive fecal occult blood test GI bleed Insomnia Anemia Asthma RABIA (obstructive sleep apnea) Obesity Hypertension Thyroiditis Rheumatoid arthritis Hypothyroidism Depression Ulcer Surgical History Hx of colonoscopy History of esophagogastroduodenoscopy (EGD) Hx of hernia repair H/O lymph node biopsy Status post biopsy of uterine cervix History of appendectomy Family History Family History Other Cirrhosis Social History Social History Household Members: Family Housing: House Do you presently have visiting nurse or other home 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) Alcohol intake: never Comment: non ambulatory Patient Tobacco Use Status: Never used Tobacco Advance Directives: Yes Advance Directives on File: Yes Advance Directives Date on File: 03/22/20 service: No Current occupational status: disabled 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 [place] Physical Exam ED Vital Signs: Vital Signs - 24 hr 09/01/23 10:43 09/01/23 11:00 09/01/23 11:03 Temperature Pulse Rate 83 80 78 Respiratory Rate 6 L Blood Pressure 126/89 82/43 L 72/48 L Pulse Oximetry 74 L Oxygen Delivery Method Room Air Fraction of Inspired Oxygen 09/01/23 11:05 09/01/23 11:09 09/01/23 11:09 Temperature Pulse Rate 82 67 Respiratory Rate 21 H Blood Pressure 77/55 L 74/32 L Pulse Oximetry 93 Oxygen Delivery Method Fraction of Inspired Oxygen 80 09/01/23 11:11 09/01/23 11:15 09/01/23 11:15 Temperature Pulse Rate 85 Respiratory Rate Blood Pressure 85/37 L 77/45 L 77/45 L Pulse Oximetry Oxygen Delivery Method Fraction of Inspired Oxygen 09/01/23 11:17 09/01/23 11:18 09/01/23 11:19 Temperature Pulse Rate 81 81 Respiratory Rate 22 H Blood Pressure 61/22 L 61/22 L 61/22 L Pulse Oximetry Oxygen Delivery Method Fraction of Inspired Oxygen 09/01/23 11:20 09/01/23 11:24 09/01/23 11:25 Temperature 95.9 F L Pulse Rate 80 77 77 Respiratory Rate 18 Blood Pressure 52/22 L 52/22 L 95/75 Pulse Oximetry 95 Oxygen Delivery Method Mechanical Ventilation Fraction of Inspired Oxygen 09/01/23 11:27 09/01/23 11:28 09/01/23 11:29 Temperature Pulse Rate 78 77 Respiratory Rate 18 Blood Pressure 49/25 L 49/25 L 64/25 L Pulse Oximetry Oxygen Delivery Method Fraction of Inspired Oxygen 09/01/23 11:30 09/01/23 11:31 09/01/23 11:31 Temperature Pulse Rate 79 79 Respiratory Rate 18 Blood Pressure 64/25 L 73/29 L Pulse Oximetry 93 Oxygen Delivery Method Mechanical Ventilation Fraction of Inspired Oxygen 80 80 09/01/23 11:32 09/01/23 11:34 09/01/23 11:37 Temperature Pulse Rate 80 81 78 Respiratory Rate Blood Pressure 73/29 L 68/31 L 72/48 L Pulse Oximetry Oxygen Delivery Method Fraction of Inspired Oxygen 09/01/23 11:44 09/01/23 11:45 09/01/23 11:49 Temperature Pulse Rate 85 84 91 Respiratory Rate 20 Blood Pressure 79/39 L 79/39 L 63/20 L Pulse Oximetry Oxygen Delivery Method Fraction of Inspired Oxygen 09/01/23 11:50 09/01/23 11:52 09/01/23 11:58 Temperature Pulse Rate 99 87 Respiratory Rate 18 Blood Pressure 89/72 L 66/34 L Pulse Oximetry Oxygen Delivery Method Fraction of Inspired Oxygen BMI result Body Mass Index 35.2 Vital signs have been reviewed and appear to be correct. Blood pressure elevated. Heart rate normal. Respiratory rate normal. Temperature normal. Oxygen saturation normal. Appearance: unresponsive, no sign of trauma, mottled, and cyanotic Head: Normal external exam. Normocephalic. Atraumatic. Eyes: pupil 4 mm bilaterally sluggish to light. ENT: TM's Normal. Pharynx normal. Uvula midline. Dry mucous membranes. No trismus noted. No drooling noted. No muffled voice noted. Neck: Normal inspection. no sign of trauma CVS: Normal heart rate and rhythm. Heart sound normal. No murmurs noted. Pulses normal throughout. Respiratory: intubated, sedated. Abdomen: Soft and nontender. Back: No CVA tenderness. Full range of motion noted. Skin: Skin warm and dry. Normal skin color. Normal skin turgor. No rashes/lesions/lacerations noted. Extremities: No lower extremity edema. Extremities exhibit normal range of motion. Extremities nontender. Neuro: unresponsive. Course Reevaluation(s) Reevaluation #1: patient had a complicated course in the ED, no sufficient medical history is available at this point only available family member is a sister who not very familiar with the patient medical conditions. 1. Presented initially cyanotic, mottled, with signs of tissue hypoperfusion, patient was intubated. 2. Lost pulse and CPR was started pulse was restored after was given 1mg epinephrine x2 and 1 amp of bicarb. 3. difficult to sedate in light of hypotension, will continue sedation with vasopressor. 4. Hypotension started on low concentrated Levophed we reached the maximum infusion, will switch to high concentrate Levophed, at this point patient admitted to ICU and Dr. Willett add epinephrine as vasopressor. 5. Septic shock secondary to Pneumonia on the x-ray, Zosyn for broad-spectrum coverage, 30 cc/kg normal saline was administrated total of 2880cc. 6. ICU admission. 7. Limited neuro exam head CT deferred when patient is stable. Time: 12:20 Reevaluation #2: FOCUSED EXAM: Patient is intubated, blood pressure is more stable with pressors, better blood pressure, O2 sat, and heart rate. Patient will be transported to ICU. Time: 13:00 Medications Administered Generic Name Dose Route Start Last Admin Trade Name Freq PRN Reason Stop Dose Admin Propofol 1,000 mg in 100 mls @ 0 mls/hr 09/01/23 11:00 09/01/23 12:35 Diprivan IVCONT 20 mcg/kg/min .Q0M HAILE 11.52 mls/hr Titration Protocol Per Protocol Fentanyl 1,000 mcg in 100 mls @ 0 mls/hr 09/01/23 11:00 09/01/23 12:05 Sublimaze/Ns IVCONT 105 mcg/hr .Q0M HAILE 10.5 mls/hr Titration Protocol Per Protocol Norepinephrine Bitartrate 8 mg in 250 mls @ 0 mls/hr 09/01/23 11:15 09/01/23 13:05 Levophed IV Infused .Q0M HAILE Titration Protocol Per Protocol Norepinephrine Bitartrate 32 250 mls @ 0 mls/hr 09/01/23 11:45 09/01/23 13:05 mg/ Sodium Chloride IV 0.05 mcg/kg/min .Q0M HAILE 2.25 mls/hr Administration Protocol Per Protocol Albumin Human 100 mls @ 100 mls/hr 09/01/23 12:00 09/01/23 13:17 Kedbumin 25 % IV 09/01/23 13:59 100 mls/hr Q1H HAILE Administration Epinephrine 5 mg/ Dextrose 255 mls @ 0 mls/hr 09/01/23 12:15 09/01/23 12:42 IVCONT 0.6 mcg/kg/min .Q0M HAILE 176.26 mls/hr Titration Protocol Per Protocol Discontinued Medications Generic Name Dose Route Start Last Admin Trade Name Freq PRN Reason Stop Dose Admin Fentanyl 50 mcg 09/01/23 11:46 09/01/23 11:50 Fentanyl Citrate/Pf 100 Mcg/2 Ml Vial IVPUSH 09/01/23 11:47 50 mcg ONCE ONE Administration Protocol Piperacillin Sod/Tazobactam 50 mls @ 100 mls/hr 09/01/23 11:35 09/01/23 13:20 Sod 3.375 gm/ Sodium Chloride IV 09/01/23 12:04 Infused ONCE ONE Infusion Sodium Chloride 2,880 mls @ 2,880 mls/hr 09/01/23 11:41 09/01/23 13:20 Ns 30 ml/kg infuse over 1 hr (2880 ml) 09/01/23 12:40 Infused IV Infusion .Q1H STA Midazolam HCl 1 mg 09/01/23 12:07 09/01/23 12:39 Midazolam Hcl/Pf 2 Mg/2 Ml Vial IVPUSH 09/01/23 12:08 1 mg ONCE ONE Administration Procedures Central Line Placement Right Femoral: Time Out Performed: Yes Patient Placed on Monitor/Pulse Ox: Yes Central Line Prep: Chlorhexidine scrub Ultrasound Used for Placement: No Central Line Lumen Inserted: triple Post Procedure: sutured in place, good blood return, all ports aspirated, flushed, capped and sterile dressing applied Complications: none Intubation Intubation Type:: Emergency Endotracheal Intubation Intubation Date:: 09/01/23 Time out performed: Yes sedative: Etomidate Mg Given: 20 paralytic: Succinylcholine Mg Given: 100 Laryngoscope: Mackenzie ET Tube Size: 7 ET Tube Uncuffed: No Tube Secured Depth (cm): 23 Tube Secured Location: lips Tube Placement Confirmation: visualized tube passing through cords, equal breath sounds bilaterally, no breath sounds over epigastrium and confirmation by capnometry Patient Tolerated Procedure: well Intubation Complications: none Medical Decision Making Differential Diagnosis Differential Diagnoses: The differential diagnosis associated with the presentation includes ( Acute respiratory failure, pneumonia, septic shock, hypovolemic shock, pneumothorax, electrolyte derangement, severe anemia.) Admission/Observation Consideration of admission/observation: Escalation of care including admission/observation considered Consult Healthcare Provider Management of the patient was discussed with: Mobile Marketing Specialist ( Dr. Willett.) Lab Data MDM Lab Attestation statement: I reviewed the patient's lab results. 09/01/23 10:44 09/01/23 10:44 Labs: Lab Results 09/01/23 09/01/23 09/01/23 Range/Units 10:23 10:30 10:41 WBC (4.8-10.8) X10*3/uL RBC (4.20-5.50) X10*6/uL Hgb (12.0-16.0) g/dl Hct (37.0-47.0) % MCV (80.0-98.0) fL MCH (27.0-33.0) pg MCHC (31.0-35.0) g/dl RDW (11.0-16.0) % Plt Count (160-400) X10*3/uL MPV (9.4-12.3) fL Immature Gran % (Auto) (0.0-0.4) % Neut % (Auto) (45-73) % Lymph % (Auto) (20-40) % Mora % (Auto) (2-11) % Eos % (Auto) (0-4) % Baso % (Auto) (0-2) % Lymph # (Auto) (1.2-4.9) X10*3/uL Mora # (Auto) (0.1-1.2) X10*3/uL Eos # (Auto) (0.0-0.4) X10*3/uL Baso # (Auto) (0.0-0.2) X10*3/uL Abs Immat Gran (auto) (0.00-0.03) X10*3/uL Absolute Neuts (auto) (2.0-8.3) x10*3/uL Absolute Nucleated RBC (0.0-0.012) X10*3/uL Nucleated RBC % (auto) (0.0-0.2) /100WBC PT (11.1-13.3) SEC INR (0.9-1.1) APTT (26.0-36.8) SEC Sodium (135-145) mmol/L Potassium (3.3-5.1) mmol/L Chloride (96-108) mmol/L Carbon Dioxide (22-29) mmol/L Anion Gap (12-20) BUN (9-16) mg/dL Creatinine (0.5-1.4) mg/dL Estim Creat Clear Calc Estimated GFR POC Glucose 21 L* 65 150 H (60-115) mg/dL Random Glucose (60-115) mg/dL Lactic Acid (0.5-2.0) mmol/L Calcium (8.4-10.2) mg/dL Magnesium (1.6-2.6) mg/dL Total Bilirubin (0.0-1.0) mg/dL AST (5-31) U/L ALT (0-31) U/L Alkaline Phosphatase (39-117) U/L Total Creatine Kinase (26-140) U/L Troponin I High Sens (<3.5-17.0) ng/L B-Natriuretic Peptide (<100) pg/mL Total Protein (6.5-8.0) g/dL Albumin (3.5-5.0) g/dL Urine Color Urine Appearance Urine pH (5.0-9.0) Ur Specific Gantt (1.005-1.025) Urine Protein (Neg-Trace) mg/dL Urine Glucose (UA) (Negative) mg/dL Urine Ketones (Negative) mg/dL Urine Blood (Negative) Urine Nitrite (Negative) Ur Leukocyte Esterase (Negative) Urine RBC (0-2) /HPF Urine WBC (0-5) /HPF Ur Squamous Epith Cells (0-2) /HPF Calcium Oxalate Crystal Urine Bacteria (None Seen) Hyaline Casts (0-2) /LPF Ethyl Alcohol mg/dL Influenza Type A (PCR) (Negative) Influenza Type B (PCR) (Negative) RSV RNA Qual (PCR) (Negative) SARS-CoV-2 RNA (RT-PCR) (Negative) Blood Type Antibody Screen 09/01/23 09/01/23 09/01/23 Range/Units 10:44 10:44 10:47 WBC 7.6 (4.8-10.8) X10*3/uL RBC 4.16 L (4.20-5.50) X10*6/uL Hgb 13.0 (12.0-16.0) g/dl Hct 43.5 (37.0-47.0) % MCV 104.6 H (80.0-98.0) fL MCH 31.3 (27.0-33.0) pg MCHC 29.9 L (31.0-35.0) g/dl RDW 13.9 (11.0-16.0) % Plt Count 218 (160-400) X10*3/uL MPV 9.4 (9.4-12.3) fL Immature Gran % (Auto) 1.3 H (0.0-0.4) % Neut % (Auto) 73.5 H (45-73) % Lymph % (Auto) 20.8 (20-40) % Mora % (Auto) 4.0 (2-11) % Eos % (Auto) 0.0 (0-4) % Baso % (Auto) 0.4 (0-2) % Lymph # (Auto) 1.6 (1.2-4.9) X10*3/uL Mora # (Auto) 0.3 (0.1-1.2) X10*3/uL Eos # (Auto) 0.0 (0.0-0.4) X10*3/uL Baso # (Auto) 0.0 (0.0-0.2) X10*3/uL Abs Immat Gran (auto) 0.10 H (0.00-0.03) X10*3/uL Absolute Neuts (auto) 5.6 (2.0-8.3) x10*3/uL Absolute Nucleated RBC 0.030 H (0.0-0.012) X10*3/uL Nucleated RBC % (auto) 0.4 H (0.0-0.2) /100WBC PT 18.4 H (11.1-13.3) SEC INR 1.5 H (0.9-1.1) APTT 23.2 L (26.0-36.8) SEC Sodium 141 (135-145) mmol/L Potassium 3.9 (3.3-5.1) mmol/L Chloride 100 (96-108) mmol/L Carbon Dioxide 21 L (22-29) mmol/L Anion Gap 24 H (12-20) BUN 25 H (9-16) mg/dL Creatinine 1.66 H (0.5-1.4) mg/dL Estim Creat Clear Calc 41.2 Estimated GFR 32 POC Glucose 324 H (60-115) mg/dL Random Glucose 590 H* (60-115) mg/dL Lactic Acid 11.3 H* (0.5-2.0) mmol/L Calcium 7.4 L D (8.4-10.2) mg/dL Magnesium 1.8 (1.6-2.6) mg/dL Total Bilirubin 0.3 (0.0-1.0) mg/dL AST 710 H (5-31) U/L ALT 692 H (0-31) U/L Alkaline Phosphatase 79 (39-117) U/L Total Creatine Kinase 165 H (26-140) U/L Troponin I High Sens 64.6 H* (<3.5-17.0) ng/L B-Natriuretic Peptide 293 H (<100) pg/mL Total Protein 5.4 L (6.5-8.0) g/dL Albumin 2.2 L (3.5-5.0) g/dL Urine Color Urine Appearance Urine pH (5.0-9.0) Ur Specific Gantt (1.005-1.025) Urine Protein (Neg-Trace) mg/dL Urine Glucose (UA) (Negative) mg/dL Urine Ketones (Negative) mg/dL Urine Blood (Negative) Urine Nitrite (Negative) Ur Leukocyte Esterase (Negative) Urine RBC (0-2) /HPF Urine WBC (0-5) /HPF Ur Squamous Epith Cells (0-2) /HPF Calcium Oxalate Crystal Urine Bacteria (None Seen) Hyaline Casts (0-2) /LPF Ethyl Alcohol < 10 Cancelled mg/dL Influenza Type A (PCR) (Negative) Influenza Type B (PCR) (Negative) RSV RNA Qual (PCR) (Negative) SARS-CoV-2 RNA (RT-PCR) (Negative) Blood Type Antibody Screen 09/01/23 09/01/23 09/01/23 Range/Units 11:03 11:04 11:37 WBC (4.8-10.8) X10*3/uL RBC (4.20-5.50) X10*6/uL Hgb (12.0-16.0) g/dl Hct (37.0-47.0) % MCV (80.0-98.0) fL MCH (27.0-33.0) pg MCHC (31.0-35.0) g/dl RDW (11.0-16.0) % Plt Count (160-400) X10*3/uL MPV (9.4-12.3) fL Immature Gran % (Auto) (0.0-0.4) % Neut % (Auto) (45-73) % Lymph % (Auto) (20-40) % Mora % (Auto) (2-11) % Eos % (Auto) (0-4) % Baso % (Auto) (0-2) % Lymph # (Auto) (1.2-4.9) X10*3/uL Mora # (Auto) (0.1-1.2) X10*3/uL Eos # (Auto) (0.0-0.4) X10*3/uL Baso # (Auto) (0.0-0.2) X10*3/uL Abs Immat Gran (auto) (0.00-0.03) X10*3/uL Absolute Neuts (auto) (2.0-8.3) x10*3/uL Absolute Nucleated RBC (0.0-0.012) X10*3/uL Nucleated RBC % (auto) (0.0-0.2) /100WBC PT (11.1-13.3) SEC INR (0.9-1.1) APTT (26.0-36.8) SEC Sodium (135-145) mmol/L Potassium (3.3-5.1) mmol/L Chloride (96-108) mmol/L Carbon Dioxide (22-29) mmol/L Anion Gap (12-20) BUN (9-16) mg/dL Creatinine (0.5-1.4) mg/dL Estim Creat Clear Calc Estimated GFR POC Glucose 202 H (60-115) mg/dL Random Glucose (60-115) mg/dL Lactic Acid (0.5-2.0) mmol/L Calcium (8.4-10.2) mg/dL Magnesium (1.6-2.6) mg/dL Total Bilirubin (0.0-1.0) mg/dL AST (5-31) U/L ALT (0-31) U/L Alkaline Phosphatase (39-117) U/L Total Creatine Kinase (26-140) U/L Troponin I High Sens (<3.5-17.0) ng/L B-Natriuretic Peptide (<100) pg/mL Total Protein (6.5-8.0) g/dL Albumin (3.5-5.0) g/dL Urine Color Dark Yellow Urine Appearance Cloudy Urine pH 5.5 (5.0-9.0) Ur Specific Gantt 1.020 (1.005-1.025) Urine Protein 30 (1+) H (Neg-Trace) mg/dL Urine Glucose (UA) Negative (Negative) mg/dL Urine Ketones Negative (Negative) mg/dL Urine Blood Trace H (Negative) Urine Nitrite Negative (Negative) Ur Leukocyte Esterase Negative (Negative) Urine RBC 0-2 (0-2) /HPF Urine WBC 0-5 (0-5) /HPF Ur Squamous Epith Cells 6-10 (0-2) /HPF Calcium Oxalate Crystal Present Urine Bacteria None Seen (None Seen) Hyaline Casts 6-10 (0-2) /LPF Ethyl Alcohol mg/dL Influenza Type A (PCR) (Negative) Influenza Type B (PCR) (Negative) RSV RNA Qual (PCR) (Negative) SARS-CoV-2 RNA (RT-PCR) (Negative) Blood Type O Positive Antibody Screen POSITIVE 09/01/23 Range/Units 11:57 WBC (4.8-10.8) X10*3/uL RBC (4.20-5.50) X10*6/uL Hgb (12.0-16.0) g/dl Hct (37.0-47.0) % MCV (80.0-98.0) fL MCH (27.0-33.0) pg MCHC (31.0-35.0) g/dl RDW (11.0-16.0) % Plt Count (160-400) X10*3/uL MPV (9.4-12.3) fL Immature Gran % (Auto) (0.0-0.4) % Neut % (Auto) (45-73) % Lymph % (Auto) (20-40) % Mora % (Auto) (2-11) % Eos % (Auto) (0-4) % Baso % (Auto) (0-2) % Lymph # (Auto) (1.2-4.9) X10*3/uL Mora # (Auto) (0.1-1.2) X10*3/uL Eos # (Auto) (0.0-0.4) X10*3/uL Baso # (Auto) (0.0-0.2) X10*3/uL Abs Immat Gran (auto) (0.00-0.03) X10*3/uL Absolute Neuts (auto) (2.0-8.3) x10*3/uL Absolute Nucleated RBC (0.0-0.012) X10*3/uL Nucleated RBC % (auto) (0.0-0.2) /100WBC PT (11.1-13.3) SEC INR (0.9-1.1) APTT (26.0-36.8) SEC Sodium (135-145) mmol/L Potassium (3.3-5.1) mmol/L Chloride (96-108) mmol/L Carbon Dioxide (22-29) mmol/L Anion Gap (12-20) BUN (9-16) mg/dL Creatinine (0.5-1.4) mg/dL Estim Creat Clear Calc Estimated GFR POC Glucose (60-115) mg/dL Random Glucose (60-115) mg/dL Lactic Acid (0.5-2.0) mmol/L Calcium (8.4-10.2) mg/dL Magnesium (1.6-2.6) mg/dL Total Bilirubin (0.0-1.0) mg/dL AST (5-31) U/L ALT (0-31) U/L Alkaline Phosphatase (39-117) U/L Total Creatine Kinase (26-140) U/L Troponin I High Sens (<3.5-17.0) ng/L B-Natriuretic Peptide (<100) pg/mL Total Protein (6.5-8.0) g/dL Albumin (3.5-5.0) g/dL Urine Color Urine Appearance Urine pH (5.0-9.0) Ur Specific Gantt (1.005-1.025) Urine Protein (Neg-Trace) mg/dL Urine Glucose (UA) (Negative) mg/dL Urine Ketones (Negative) mg/dL Urine Blood (Negative) Urine Nitrite (Negative) Ur Leukocyte Esterase (Negative) Urine RBC (0-2) /HPF Urine WBC (0-5) /HPF Ur Squamous Epith Cells (0-2) /HPF Calcium Oxalate Crystal Urine Bacteria (None Seen) Hyaline Casts (0-2) /LPF Ethyl Alcohol mg/dL Influenza Type A (PCR) NEGATIVE (Negative) Influenza Type B (PCR) NEGATIVE (Negative) RSV RNA Qual (PCR) NEGATIVE (Negative) SARS-CoV-2 RNA (RT-PCR) NEGATIVE (Negative) Blood Type Antibody Screen Independent Interpretation I performed an independent interpretation of an: EKG and Plain X-Ray Interpretation: normal sinus rhythm at 81 beats per minute, nonspecific ST abnormality, QT prolongation otherwise unremarkable intervals, nonspecific ST-T changes. Radiology Impression Discussion of test interpretation with radiology: I have reviewed the radiologist's reading. Critical Care Time Critical Care Time Critical Care Time: Yes Total Critical Care Time: 60 Attestation: I spent 60 minutes providing critical care service to the patient, this including time spent at the bedside to evaluate the patient, reassess the patient, monitoring vital signs, review labs, and radiographic studies, counseling the patient/family, discussing the case with consultants, disposition the patient. Discharge Plan Discharge Clinical Impression: Acute hypoxic respiratory failure, Acute kidney injury, Pneumonia, Septic shock Patient Disposition: Admitted As Inpatient
[2023-09-01 11:08] LABS: INTERNATIONAL NORM RATIO 1.5 (0.9-1.1); Prothrombin Time 18.4 SEC (11.1-13.3)
[2023-09-01 11:12] LABS: Lactic Acid 11.3 mmol/L (0.5-2.0); Partial Thromboplastin Time 23.2 SEC (26.0-36.8)
[2023-09-01 11:13] LABS: Appearance Urine Cloudy; Color Urine Dark Yellow; Glucose Urine UA Negative (Negative); Leukocyte Esterase Urine Negative (Negative); Nitrite Urine Negative (Negative); PH 5.5 (5.0-9.0); UMIC TRIGGER UACC YES; Urine Blood Trace (Negative); Urine Ketones Negative (Negative); Urine Protein 30 (1+) mg/dL (Neg-Trace)
[2023-09-01 11:14] LABS: Alanine Aminotransferase 692 U/L (0-31); Albumin Level 2.2 g/dL (3.5-5.0); Alkaline Phosphatase 79 U/L (39-117); Anion Gap 24 (12-20); Aspartate Amino Transferase 710 U/L (5-31); Bilirubin Total 0.3 mg/dL (0.0-1.0); Blood Urea Nitrogen 25 mg/dL (9-16); Calcium 7.4 mg/dL (8.4-10.2); Carbon Dioxide 21 mmol/L (22-29); Chloride 100 mmol/L (96-108); Creatinine Clr Calc Pharmacy 41.2; Estimated Glomerular Filt Rate 32; Magnesium 1.8 mg/dL (1.6-2.6); Potassium 3.9 mmol/L (3.3-5.1); Sodium 141 mmol/L (135-145); Total Protein 5.4 g/dL (6.5-8.0)
[2023-09-01 11:15] LABS: Glucose Random 590 mg/dL (60-115)
[2023-09-01 11:17] LABS: Glucose, Whole Blood 324 mg/dL (60-115)
[2023-09-01 11:17] LABS: Glucose, Whole Blood 150 mg/dL (60-115)
[2023-09-01 11:17] LABS: Glucose, Whole Blood 65 mg/dL (60-115)
[2023-09-01 11:17] LABS: Glucose, Whole Blood 21 mg/dL (60-115)
[2023-09-01] MEDS: 0.9 % Sodium Chloride 1,000 ML 999 ML IV ×2 (11:21→13:00)
[2023-09-01 11:23] LABS: Troponin-I High Sensitivity 64.6 ng/L (<3.5-17.0)
[2023-09-01 11:31] LABS: Bacteria Urine None Seen (None Seen); Calcium Oxalate Crystals Urine Present; RBC Urine 0-2 /HPF (0-2); WBC Urine 0-5 /HPF (0-5)
[2023-09-01 11:43] LABS: Glucose, Whole Blood 202 mg/dL (60-115)
[2023-09-01] MEDS: fentaNYL citrate/PF 100 MCG/2 ML VIAL 50 MCG IVPUSH (11:50)
[2023-09-01] MEDS: Piperacillin Sodium/Tazobactam 3.375 GM in 0.9 % Sodium Chloride 50 ML IV ×2 (11:59→19:28)
[2023-09-01 12:00] LABS: Ethanol < 10 mg/dL
[2023-09-01] MEDS: Albumin Human 25 % 100 ML IV ×2 (12:12→13:17)
[2023-09-01 12:13] LABS: B Type Natriuretic Peptide 293 pg/mL (<100)
[2023-09-01 12:18] LABS: Amphetamine Screen Urine Not Detected (Not Detect); Barbiturates, Urine Not Detected (Not Detect); Benzodiazepines Screen Urine Not Detected (Not Detect); Cannabinoid Screen Urine Not Detected (Not Detect); Cocaine Screen Urine Not Detected (Not Detect); Fentanyl, urine Not Detected (Not Detect); Opiate Screen Urine POSITIVE (Not Detect); Phencyclidine Screen Urine Not Detected (Not Detect)
--- NOTE | 2023-09-01 12:19 | PC.NURSE ---
spoke with Sohail Mustafa of [facility] protective services and updated her of pt's tx plan, they will fallow up tomorrow
[2023-09-01] MEDS: EPINEPHrine 5 MG in Dextrose 5 % 250 ML 58.75 MG IVCONT (12:21)
[2023-09-01] MEDS: Midazolam HCl/PF 2 MG/2 ML VIAL 1 MG IVPUSH (12:39)
[2023-09-01 12:51] LABS: Reflex Lactate? Lactic Acid Added
[2023-09-01 12:57] LABS: Influenza A PCR NEGATIVE (Negative); Influenza B PCR NEGATIVE (Negative); Resp Syncy Virus RNA Qual PCR NEGATIVE (Negative); SARS COV2 PCR INHOUSE NEGATIVE (Negative)
--- NOTE | 2023-09-01 12:57 | PM.CCHP ---
History of Present Illness Date of Service: 09/01/23 Chief Complaint: Cardiac arrest 62-year-old lady with underlying history of rheumatoid arthritis, hypertension, hypothyroidism admitted on 09/01/2023 with hypoxia. Upon arrival to ER patient noted to be cyanotic with no measurable blood pressure and O2 saturation in 70s. Patient was intubated with tanja intubation cardiac arrest with return of spontaneous circulation after 2 rounds of CPR. Patient admitted to the intensive care unit. Review of Systems Review of Systems: Yes unobtainable due to endotracheal tube, Unobtainable due to mental condition and Unobtainable due to mental status PMFSH Past Medical History Medical History Erich lesion, chronic Low TSH level Episode of generalized weakness Positive fecal occult blood test GI bleed Insomnia Anemia Asthma RABIA (obstructive sleep apnea) Obesity Hypertension Thyroiditis Rheumatoid arthritis Hypothyroidism Depression Ulcer Family History Family History Other Cirrhosis Surgical History Surgical History Hx of colonoscopy History of esophagogastroduodenoscopy (EGD) Hx of hernia repair H/O lymph node biopsy Status post biopsy of uterine cervix History of appendectomy Social History Social History Household Members: Unknown / Unable to assess Housing: House Do you presently have visiting nurse or other home services: Yes ([employer]) Alcohol intake: never Comment: non ambulatory Patient Tobacco Use Status: Never used Tobacco Use of substances other than those prescribed or required for medical reasons: Unable to respond Currently Displaying Signs/Symptoms of Drug Intoxication Withdrawal: No Advance Directives: Yes Advance Directives on File: Yes Advance Directives Date on File: 03/22/20 Nutrition Risks: No Nutritional Risk Patient : No : No service: No Current occupational status: disabled 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 [place] Meds Allergies Allergy/AdvReac Type Severity Reaction Status Date / Time ibuprofen [From MOTRIN] Allergy Unknown ULCERS Verified 03/12/20 19:51 naproxen [From NAPROSYN] Allergy Unknown ULCERS Verified 03/12/20 19:51 Active Medications: Current Medications Heparin Sodium (Porcine) (Heparin Sodium,Porcine 5,000 Unit/Ml Vial) 5,000 unit SUBCUT Q8H HAILE Propofol (Diprivan) 1,000 mg in 100 mls @ 0 mls/hr IVCONT .Q0M HAILE; Protocol Last Titration: 09/01/23 12:35 Dose: 20 mcg/kg/min, 11.52 mls/hr Fentanyl (Sublimaze/Ns) 1,000 mcg in 100 mls @ 0 mls/hr IVCONT .Q0M HAILE; Protocol Last Titration: 09/01/23 12:05 Dose: 105 mcg/hr, 10.5 mls/hr Norepinephrine Bitartrate (Levophed) 8 mg in 250 mls @ 0 mls/hr IV .Q0M HAILE; Protocol Last Titration: 09/01/23 12:42 Dose: 0.69 mcg/kg/min, 124.2 mls/hr Norepinephrine Bitartrate 32 (mg/ Sodium Chloride) 250 mls @ 0 mls/hr IV .Q0M HAILE; Protocol Albumin Human (Kedbumin 25 %) 100 mls @ 100 mls/hr IV Q1H HAILE Stop: 09/01/23 13:59 Last Admin: 09/01/23 12:12 Dose: 100 mls/hr Epinephrine 5 mg/ Dextrose 255 mls @ 0 mls/hr IVCONT .Q0M HAILE; Protocol Last Titration: 09/01/23 12:42 Dose: 0.6 mcg/kg/min, 176.26 mls/hr Home Medications Medication Instructions Recorded Confirmed Last Taken Type oxycodone 10 mg tablet 10 mg PO BID PRN Pain, Moderate 03/12/20 09/01/23 04/21/21 History pantoprazole 40 mg tablet,delayed 1 tab PO DAILY@0630 03/12/20 09/01/23 04/21/21 History release ferrous sulfate 325 mg (65 mg 1 tab PO DAILY 01/03/21 09/01/23 04/21/21 History iron) tablet hydroxychloroquine 200 mg tablet 1 tab PO DAILY 01/03/21 09/01/23 04/21/21 History prednisone 5 mg tablet 1 tab PO DAILY 01/03/21 09/01/23 04/21/21 History fluoxetine 40 mg capsule 1 cap PO DAILY 04/22/21 09/01/23 04/21/21 History gabapentin 300 mg capsule 300 mg PO BEDTIME 09/01/23 09/01/23 Unknown History Physical Exam Vital Signs: Vital Signs: Last Vital Signs Temp 95.9 F L 09/01/23 11:25 Pulse 91 09/01/23 12:42 Resp 21 H 09/01/23 12:05 BP 98/44 L 09/01/23 12:42 Pulse Ox 93 09/01/23 11:31 O2 Del Method Mechanical Ventil ation 09/01/23 11:31 FiO2 80 09/01/23 11:31 BMI result Body Mass Index 35.2 Const: General: no acute distress Nutritional Appearance: obese Eyes: Sclerae: sclerae normal Neck: Neck: Yes no lymphadenopathy, Yes trachea midline and Yes supple Resp: Auscultation: crackles (Right basilar) Cardio: Rate: regular rate Rhythm: regular rhythm Heart sounds: no gallops, no murmurs and no rubs GI: Palpation (GI): Soft to palpation and Other GI palpation findings present ( Nontender) Auscultation: normal bowel sounds Extrem: General: No clubbing, No cyanosis and Yes edema (1+ bilateral) Results Labs 09/02/23 06:14 09/02/23 06:14 Labs: Laboratory Results - last 24 hr 09/01/23 09/01/23 09/01/23 10:23 10:30 10:41 MCV MCH MCHC RDW Plt Count MPV Immature Gran % (Auto) Neut % (Auto) Lymph % (Auto) [place] % (Auto) Eos % (Auto) Baso % (Auto) Lymph # (Auto) [place] # (Auto) Eos # (Auto) Baso # (Auto) Abs Immat Gran (auto) Absolute Neuts (auto) Absolute Nucleated RBC Nucleated RBC % (auto) PT INR APTT Anion Gap Estim Creat Clear Calc Estimated GFR POC Glucose 21 L* 65 150 H Random Glucose Lactic Acid Calcium Magnesium Total Bilirubin AST ALT Alkaline Phosphatase Total Creatine Kinase Troponin I High Sens B-Natriuretic Peptide Total Protein Albumin Urine Color Urine Appearance Urine pH Ur Specific [place] Urine Protein Urine Glucose (UA) Urine Ketones Urine Blood Urine Nitrite Ur Leukocyte Esterase Urine RBC Urine WBC Ur Squamous Epith Cells Calcium Oxalate Crystal Urine Bacteria Hyaline Casts Urine Opiates Screen Urine Fentanyl Screen Ur Barbiturates Screen Ur Phencyclidine Scrn Ur Amphetamines Screen U Benzodiazepines Scrn Urine Cocaine Screen U Marijuana (THC) Screen Ethyl Alcohol Blood Type Antibody Screen 09/01/23 09/01/23 09/01/23 10:44 10:44 10:47 MCV 104.6 H MCH 31.3 MCHC 29.9 L RDW 13.9 Plt Count 218 MPV 9.4 Immature Gran % (Auto) 1.3 H Neut % (Auto) 73.5 H Lymph % (Auto) 20.8 [place] % (Auto) 4.0 Eos % (Auto) 0.0 Baso % (Auto) 0.4 Lymph # (Auto) 1.6 [place] # (Auto) 0.3 Eos # (Auto) 0.0 Baso # (Auto) 0.0 Abs Immat Gran (auto) 0.10 H Absolute Neuts (auto) 5.6 Absolute Nucleated RBC 0.030 H Nucleated RBC % (auto) 0.4 H PT 18.4 H INR 1.5 H APTT 23.2 L Anion Gap 24 H Estim Creat Clear Calc 41.2 Estimated GFR 32 POC Glucose 324 H Random Glucose 590 H* Lactic Acid 11.3 H* Calcium 7.4 L D Magnesium 1.8 Total Bilirubin 0.3 AST 710 H ALT 692 H Alkaline Phosphatase 79 Total Creatine Kinase 165 H Troponin I High Sens 64.6 H* B-Natriuretic Peptide 293 H Total Protein 5.4 L Albumin 2.2 L Urine Color Urine Appearance Urine pH Ur Specific [place] Urine Protein Urine Glucose (UA) Urine Ketones Urine Blood Urine Nitrite Ur Leukocyte Esterase Urine RBC Urine WBC Ur Squamous Epith Cells Calcium Oxalate Crystal Urine Bacteria Hyaline Casts Urine Opiates Screen Urine Fentanyl Screen Ur Barbiturates Screen Ur Phencyclidine Scrn Ur Amphetamines Screen U Benzodiazepines Scrn Urine Cocaine Screen U Marijuana (THC) Screen Ethyl Alcohol < 10 Cancelled Blood Type Antibody Screen 09/01/23 09/01/23 09/01/23 11:03 11:04 11:37 MCV MCH MCHC RDW Plt Count MPV Immature Gran % (Auto) Neut % (Auto) Lymph % (Auto) [place] % (Auto) Eos % (Auto) Baso % (Auto) Lymph # (Auto) [place] # (Auto) Eos # (Auto) Baso # (Auto) Abs Immat Gran (auto) Absolute Neuts (auto) Absolute Nucleated RBC Nucleated RBC % (auto) PT INR APTT Anion Gap Estim Creat Clear Calc Estimated GFR POC Glucose 202 H Random Glucose Lactic Acid Calcium Magnesium Total Bilirubin AST ALT Alkaline Phosphatase Total Creatine Kinase Troponin I High Sens B-Natriuretic Peptide Total Protein Albumin Urine Color Dark Yellow Urine Appearance Cloudy Urine pH 5.5 Ur Specific [place] 1.020 Urine Protein 30 (1+) H Urine Glucose (UA) Negative Urine Ketones Negative Urine Blood Trace H Urine Nitrite Negative Ur Leukocyte Esterase Negative Urine RBC 0-2 Urine WBC 0-5 Ur Squamous Epith Cells 6-10 Calcium Oxalate Crystal Present Urine Bacteria None Seen Hyaline Casts 6-10 Urine Opiates Screen Urine Fentanyl Screen Ur Barbiturates Screen Ur Phencyclidine Scrn Ur Amphetamines Screen U Benzodiazepines Scrn Urine Cocaine Screen U Marijuana (THC) Screen Ethyl Alcohol Blood Type O Positive Antibody Screen POSITIVE 09/01/23 12:03 MCV MCH MCHC RDW Plt Count MPV Immature Gran % (Auto) Neut % (Auto) Lymph % (Auto) [place] % (Auto) Eos % (Auto) Baso % (Auto) Lymph # (Auto) [place] # (Auto) Eos # (Auto) Baso # (Auto) Abs Immat Gran (auto) Absolute Neuts (auto) Absolute Nucleated RBC Nucleated RBC % (auto) PT INR APTT Anion Gap Estim Creat Clear Calc Estimated GFR POC Glucose Random Glucose Lactic Acid Calcium Magnesium Total Bilirubin AST ALT Alkaline Phosphatase Total Creatine Kinase Troponin I High Sens B-Natriuretic Peptide Total Protein Albumin Urine Color Urine Appearance Urine pH Ur Specific [place] Urine Protein Urine Glucose (UA) Urine Ketones Urine Blood Urine Nitrite Ur Leukocyte Esterase Urine RBC Urine WBC Ur Squamous Epith Cells Calcium Oxalate Crystal Urine Bacteria Hyaline Casts Urine Opiates Screen POSITIVE H Urine Fentanyl Screen Not Detected Ur Barbiturates Screen Not Detected Ur Phencyclidine Scrn Not Detected Ur Amphetamines Screen Not Detected U Benzodiazepines Scrn Not Detected Urine Cocaine Screen Not Detected U Marijuana (THC) Screen Not Detected Ethyl Alcohol Blood Type Antibody Screen Imaging Radiologist's Impressions: Impressions Chest X-Ray 09/01/23 11:41 IMPRESSION: 1. Endotracheal tube approximately 4.2 cm from the level of the lena. 2. Enteric tube coursing below left hemidiaphragm into the stomach. 3. Bilateral low lung volumes. 4. Patchy radiopacities throughout the bilateral lung briceno potentially representing infectious/inflammatory etiology though vascular congestion not excluded. 5. Small left pleural effusion. Assessment and Plan (1) Cardiac arrest: Status: Acute (2) Ischemic hepatitis: Status: Acute (3) Acute kidney injury: Status: Acute (4) Acute hypoxic respiratory failure: Status: Acute (5) Shock: Status: Acute (6) Pulmonary aspiration: Status: Acute (7) Rheumatoid arthritis: Status: Acute (8) Hypothyroidism: Status: Acute Plan Assessment: 62-year-old lady admitted after cardiac arrest, now on ventilatory support Plan: Neuro: Brief PEA/asystole arrest, also with significant hemodynamic instability, not a candidate for hypothermia. CT head is pending. Cardiac: Cardiac arrest, likely secondary to hypoxia. Returned spontaneous circulation after 2 rounds of CPR. 2D echo is pending. Distributive shock, continue to titrate off pressors as tolerated. Pulmonary: Acute hypoxic respiratory failure likely secondary to pulmonary aspiration, intubated during the CPR. Continue to titrate off ventilatory support as tolerated. Renal: Acute kidney injury, likely secondary from hypoperfusion/ATN with cardiac arrest. Oliguric. Continue to monitor renal indices and urine output. Endo: No acute issues. GI: Ischemic hepatitis, secondary to cardiac arrest. Continue to monitor liver function. ID: Pulmonary aspiration, empirically covered with broad-spectrum antibiotics. Heme/Onc: No acute issues. Psych: No acute issues. Miscellaneous: No acute issues. Prophylaxis: Heparin, ppi Diet: NPO Critical care time spent: 90 minutes
[2023-09-01 13:27] LABS: ABG Base Excess -10.7 mmol/L; ABG HCO3 19 mmol/L (22-26); ABG pCO2 58 mmHg (32-45); ABG pH 7.12 (7.35-7.45); ABG pO2 70 mmHg (83-108)
[2023-09-01 13:43] LABS: ~Lactic Acid-LAB USE ONLY 9.6 mmol/L (0.5-2.0)
[2023-09-01 13:46] LABS: Acetaminophen LAB < 3 mcg/mL (<30); Salicylate < 5.0 mg/dL (15-30)
[2023-09-01] MEDS: Sodium Bicarbonate 8.4% 50 MEQ/50 ML VIAL IVPUSH (13:52)
[2023-09-01] MEDS: EPINEPHrine 5 MG in Dextrose 5 % 250 ML 176.26 MG IVCONT ×7 (13:57→22:38)
[2023-09-01] MEDS: Heparin Sodium,Porcine 5,000 UNIT/ML VIAL 5000 UNIT SUBCUT ×2 (13:59→19:27)
[2023-09-01] MEDS: Sodium Bicarbonate 8.4% 150 MEQ in Dextrose 5 % 850 ML 100 MEQ IV (14:06)
[2023-09-01] MEDS: Chlorhexidine Gluc Oral Rinse 15 ML MOUTHWASH BUCCAL ×2 (14:06→19:39)
--- NOTE | 2023-09-01 14:07 | PC.NURSE ---
Back charting from time of EMS arrival: Pt arrived via EMS at 1015 from home, reported pt has a WINDOW SHADE RING SEWER that come from 1-3, LNW was 08/30, pt found obtunded, not protecting airway, found to be surrounded in stool/vomit, unclean household reported to be surrounded by insects. Multiple staff at bedside including , RSKhoi kit pulled. Pt extremities found to be mottled, abdomen found to be cool to touch, distended but soft, extremities cold. BP for EMS was 68/50 unable to obtain O2. Right tibia IO obtained at 1025, 2L NS pressured bagged in at this time, POC found to be 20 first Dextrose 50 amp given at 1026. Triple lumen central line placed at 1026 by provider. Vitals at this time 126/89 HR 83 O2 between 40-70%. R AC and L hand peripheral IV attempted but failed. Etomidate 20mg given at 1027, attempted first intubation at this time. POC at 1030 was 65, BP 99/41 HR 107 O2 50%, second Dextrose amp given at 1032, 100mg Succs also given at this time. Second intubation attempted at 1033, placed 7.5; 23 at the lip; color changing metrics obtained/ bilat lung sounds noted. At this time no radial pulses felt, no central pulses felt CPR initiated at this time, 1mg Epi given at 1037, 1 amp bicarb given at 1039, vitals obtained at 1039 108 HR, 98% via bagging 40 endtidal. 1mg Epi given at 1040, hr 113 97% O2, 59 endtidal, third amp of D50 given at 1041 POC 150, ultrasound untilized at this time CPR stopped at 1041 d/t finding central pulses via US. Propofol started per protocol. See MAR for other medications started at this time and maintained per protocol. 1053 OG placed, auscultated in abdominal area, temp sensing khan placed at this time as well. 125mL urine out in 2 hour period. 1128 propofol stopped d/t BP being unstable, Norepi dripped increased above protocol per MD verbal orders at bedside, documented in MAR to reflect. 3rd and 4th NS IVF infused via pressure bag at this time. See MAR for medication titration/ orders. Pt transported to ICU, transferred to ICU monitoring.
[2023-09-01 15:25] LABS: Reflex Lactate? 2 Y
[2023-09-01] MEDS: fentaNYL citrate/NS 1,000 MCG/100 ML PLAST..BAG 20 MCG IVCONT ×3 (15:29→23:30)
--- NOTE | 2023-09-01 15:31 | PHA.MEDREC ---
Pharmacy Consult ? Medication Reconciliation Pharmacy has completed the medication reconciliation. Pt intubated. Called daughter/HCP and left message but no response. Utilized claim history to confirm med rec.
[2023-09-01 15:56] LABS: ~Lactic Acid-LAB USE ONLY 8.4 mmol/L (0.5-2.0)
[2023-09-01 19:44] LABS: Glucose, Whole Blood 251 mg/dL (60-115)
[2023-09-01 20:50] LABS: ABG Refer to POC result
[2023-09-01] MEDS: Acetaminophen Supp 650 MG SUPP.RECT PR (22:00)
[2023-09-01 22:15] LABS: VBG Base Excess -0.3 mmol/L; VBG HCO3 26 mmol/L (22-26); VBG pCO2 53 mmHg; VBG pO2 51 mmHg
[2023-09-01 22:37] LABS: Anion Gap 20 (12-20); Blood Urea Nitrogen 30 mg/dL (9-16); Calcium 7.8 mg/dL (8.4-10.2); Carbon Dioxide 24 mmol/L (22-29); Chloride 98 mmol/L (96-108); Creatinine Clr Calc Pharmacy 47.5; Estimated Glomerular Filt Rate 37; Glucose Random 218 mg/dL (60-115); Magnesium 1.2 mg/dL (1.6-2.6); Phosphorus 2.2 mg/dL (2.7-4.5); Sodium 139 mmol/L (135-145)
[2023-09-01] MEDS: Magnesium Sulfate/H2O 2 GM/50 ML PIGGYBACK IV (22:57)
[2023-09-01] MEDS: Potassium Chloride/H20 40 MEQ/100 ML PIGGYBACK 100 MEQ IV (22:59)
[2023-09-02] VITALS (102 sets, daily range): BP systolic 53–186; BP diastolic 32–105; PULSE 97–118; RESP 12–28; TEMP 34.9–38.3; O2SAT 90–99; BMI 38.1
[2023-09-02] MEDS: propofoL 1,000 MG/100 ML VIAL 28.8 MG IVCONT ×3 (00:43→04:56)
[2023-09-02 01:06] LABS: Venous Blood Gas Refer to POC result
[2023-09-02] MEDS: EPINEPHrine 5 MG in Dextrose 5 % 250 ML 235.01 MG IVCONT (01:23)
[2023-09-02 01:55] LABS: VBG Base Excess -1.4 mmol/L; VBG HCO3 26 mmol/L (22-26); VBG pCO2 55 mmHg; VBG pH 7.28 (7.32-7.43); VBG pO2 47 mmHg
[2023-09-02 02:13] LABS: Anion Gap 22 (12-20); Blood Urea Nitrogen 31 mg/dL (9-16); Carbon Dioxide 23 mmol/L (22-29); Chloride 95 mmol/L (96-108); Creatinine Clr Calc Pharmacy 45.9; Estimated Glomerular Filt Rate 36; Glucose Random 170 mg/dL (60-115); Potassium 3.3 mmol/L (3.3-5.1); Sodium 137 mmol/L (135-145)
[2023-09-02 02:23] LABS: Venous Blood Gas Refer to POC result
[2023-09-02] MEDS: EPINEPHrine 5 MG in Dextrose 5 % 250 ML 176.26 MG IVCONT ×6 (02:36→08:06)
--- NOTE | 2023-09-02 02:44 | W.PM.CCHP ---
Procedures Date of Service Date of Service: 09/02/23 <Ary Esteban NP - Last Filed: 09/02/23 02:47> 09/02/23 <Usman Willett MD - Last Filed: 09/02/23 09:39> Central Line Placement Left IJ: Central Line Comments: The left neck was widely prepped and draped in full sterile fashion.? Under US? guidance, the left IJ vein was cannulated on the 1st pass of the 18 g thin wall needle, with return of dark, nonpulsatile blood. ? The wire was threaded without incident.? The 16 cm x 7 [place] triple-lumen CVC was advanced into the vein up to the hub via the Seldinger technique without incident.? There was good blood return x3.? The catheter was sutured x2 and a Biopatch and dry sterile dressing were applied. Postop chest x-ray showed the line in good position with no pneumothorax.? The patient tolerated the procedure well with no complications. <Ary Esteban NP - Last Filed: 09/02/23 02:47> Consent for Procedure: Emergent-no informed consent obtained <Ary Esteban NP - Last Filed: 09/02/23 02:47> Time out performed: Yes <DAVID Tripp Last Filed: 09/02/23 02:47> Sterile Technique Used: Yes <DAVID Tripp Last Filed: 09/02/23 02:47> Patient placed on monitor/pulse ox: Yes <Ary Esteban NP - Last Filed: 09/02/23 02:47> prep: mask, gown and gloves <DAVID Tripp Last Filed: 09/02/23 02:47> Central line prep: Chlorhexidine scrub and sterile drapes applied <DAVID Tripp Last Filed: 09/02/23 02:47> Ultrasound used for placement: Yes <DAVID Tripp Last Filed: 09/02/23 02:47> Central line lumen inserted: triple <DAVID Tripp Last Filed: 09/02/23 02:47> Post procedure: sutured in place, good blood return, all ports aspirated, flushed, capped and sterile dressing applied <Ary Esteban NP - Last Filed: 09/02/23 02:47> Post procedure x-ray: tip of catheter in good position and no pneumothorax seen <Ary Esteban NP - Last Filed: 09/02/23 02:47> Patient tolerated procedure: well and no complications <DAVID Tripp Last Filed: 09/02/23 02:47> Complications: none <DAVID Tripp Last Filed: 09/02/23 02:47>
[2023-09-02 03:01] LABS: Magnesium 1.5 mg/dL (1.6-2.6)
[2023-09-02] MEDS: Potassium Chloride/H20 40 MEQ/100 ML PIGGYBACK 100 MEQ IV (03:03)
--- NOTE | 2023-09-02 03:03 | PM.EVENT ---
Documented by User: Ary Esteban NP 09/02/23 03:16 Event Note Date of Service: 09/02/23 Event Note: One set of blood cultures reported positive at 15 hrs for Gram-positive cocci in chains. Patient presented cyanotic, mottled, with signs of tissue hypoperfusion. Found to be in Septic shock likely due to Pneumonia as seen on CXR. Will continue broad-spectrum antibiotics and obtain further imaging once stable. Time Spent With Patient Time: Total time managing care of this patient today ____ minutes. Documented by User: Usman Willett MD 09/02/23 09:40 Event Note Date of Service: 09/02/23 Event Note: One set of blood cultures reported positive at 15 hrs for Gram-positive cocci in chains. Patient presented cyanotic, mottled, with signs of tissue hypoperfusion. Found to be in shock likely due to aspiration pneumonia vs pneumonitis as seen on CXR. Will continue broad-spectrum antibiotics and obtain further imaging once stable.
[2023-09-02] MEDS: Calcium Gluconate/NaCl,Iso-Osm 1 GM/50 ML PLAST..BAG IV (03:07)
--- NOTE | 2023-09-02 03:13 | PM.CCN ---
Critical Care Event Note Summary Date of Service: 09/02/23 Code activated: No Narrative: This case had a high probability of a clinically significant, sudden, or life threatening deterioration of this patient's condition which required my full and direct attention, intervention and personal management. Critical Care Time (minutes): 60 Comment: At about 130 this morning patient?s? right leg noted to be mottled, cold, pulseless.? Pressor requirements increasing.?She does have a?femoral central line.?Arterial ultrasound ordered. Electrolytes ordered. VBG ordered. TLC placed in left IJ (see procedural note).? Discontinued use of femoral line.
[2023-09-02] MEDS: Magnesium Sulfate/H2O 2 GM/50 ML PIGGYBACK IV (03:29)
[2023-09-02] MEDS: Heparin Sodium,Porcine 5,000 UNIT/ML VIAL 5000 UNIT SUBCUT ×3 (03:30→19:30)
[2023-09-02] MEDS: Sodium Bicarbonate 8.4% 150 MEQ in Dextrose 5 % 850 ML 100 MEQ IV (04:10)
[2023-09-02] MEDS: Piperacillin Sodium/Tazobactam 3.375 GM in 0.9 % Sodium Chloride 50 ML IV ×4 (04:15→19:30)
[2023-09-02] MEDS: fentaNYL citrate/NS 1,000 MCG/100 ML PLAST..BAG 12.5 MCG IVCONT (04:52)
[2023-09-02 06:19] LABS: VBG Base Excess -1.8 mmol/L; VBG HCO3 24 mmol/L (22-26); VBG pCO2 45 mmHg; VBG pH 7.33 (7.32-7.43); VBG pO2 42 mmHg
[2023-09-02 06:22] LABS: Glucose, Whole Blood 193 mg/dL (60-115)
[2023-09-02 06:47] LABS: Albumin Level 2.7 g/dL (3.5-5.0); Anion Gap 20 (12-20); Blood Urea Nitrogen 31 mg/dL (9-16); Carbon Dioxide 22 mmol/L (22-29); Chloride 94 mmol/L (96-108); Estimated Glomerular Filt Rate 33; Glucose Random 187 mg/dL (60-115); Magnesium 1.8 mg/dL (1.6-2.6); Phosphorus 1.9 mg/dL (2.7-4.5); Potassium 3.9 mmol/L (3.3-5.1); Sodium 132 mmol/L (135-145)
[2023-09-02 06:58] LABS: Hematocrit 42.3 % (37.0-47.0); Hemoglobin 13.6 g/dl (12.0-16.0); Mean Corpuscular HGB Conc 32.2 g/dl (31.0-35.0); Mean Corpuscular Hemoglobin 30.8 pg (27.0-33.0); Mean Corpuscular Volume 95.9 fL (80.0-98.0); Mean Platelet Volume 10.1 fL (9.4-12.3); Platelet Count 222 X10*3/uL (160-400); Red Blood Count 4.41 X10*6/uL (4.20-5.50); Red Cell Distribution Width 13.9 % (11.0-16.0); White Blood Count 12.3 X10*3/uL (4.8-10.8)
[2023-09-02 06:59] LABS: NRBC Pct Auto 1.4 /100WBC (0.0-0.2)
[2023-09-02] MEDS: Chlorhexidine Gluc Oral Rinse 15 ML MOUTHWASH BUCCAL ×3 (08:50→20:11)
[2023-09-02] MEDS: Albumin Human 25 % 100 ML IV ×3 (08:50→20:10)
[2023-09-02] MEDS: Potassium Phosphate/NS 15 MMOL/250 ML PLAST..BAG 62.5 MMOL IV ×2 (08:50→13:19)
[2023-09-02 09:11] LABS: Band Neutrophils Percent 32 % (3-5); Eosinophils Absolute Manual 0.6 X10*3/uL (0.0-0.4); Eosinophils Percent Manual 5 % (0-4); Lymphocytes Absolute Manual 1.8 X10*3/uL (1.2-4.9); Lymphocytes Percent Manual 15 % (20-40); Metamyelocytes Absolute 1.4 X10*3/uL; Metamyelocytes Percent 11 %; Monocytes Absolute Manual 0.6 X10*3/uL (0.1-1.2); Monocytes Percent Manual 5 % (2-11); Myelocytes Absolute 0.6 X10*/uL; Myelocytes Percent 5 %; Neutrophils Absolute Manual 7.3 X10*3/uL (2.0-8.3); Neutrophils Percent Manual 27 % (45-73); Nucleated Red Blood Cells 1 /100WBC (0-0)
[2023-09-02 09:14] LABS: Platelet Estimate NORMAL (NORMAL); RBC Morphology NORMAL; Toxic Vacuolation PRESENT
[2023-09-02 09:17] LABS: Platelet Morphology Comment NORMAL
[2023-09-02] MEDS: propofoL 1,000 MG/100 ML VIAL 17.28 MG IVCONT ×2 (09:30→14:33)
[2023-09-02] MEDS: EPINEPHrine 5 MG in Dextrose 5 % 250 ML 117.5 MG IVCONT (09:36)
--- NOTE | 2023-09-02 09:40 | P.CDIM_ITS ---
PROVIDER RESPONSE TEXT: To clarify, the appropriate diagnosis supported by the clinical indicators: Encephalopathy: From cerebral hypoperfusion QUERY TEXT: PHYSICIAN'S DOCUMENTATION REQUEST Date of Query: 09/02/2023 07:45 AM EDT Patient Name: Jane Mcdonald Admit Date: 09/01/2023 Dear Usman Willett, A review of the medical record indicates additional documentation may be needed. Please review below and update the documentation accordingly. Clinical Indicators: Per ED note 09/01/23: found unresponsive at home and unresponsive in ED CPR and intubated CT head pending Based on the above, could you clarify if any of the following, is the most likely etiology of altered mental status? Encephalopathy Indicate type such as metabolic, toxic, septic, alcoholic, hypertensive, etc. Dementia Indicate type of dementia, such as Alzheimer's, senile, vascular, Lewy body, etc. Acute delirium Indicate known or suspected etiology, such as postoperative, due to narcotics or other drugs, etc. Baseline dementia Indicate type, such as Alzheimer's, senile, vascular, Lewy body, etc., and any associated behavioral disturbances (aggressive, combative, or violent behavior) Coma Specify known or suspected etiology Other (explain) Clinically unable to determine (explain) Thank you, Bertha Figueroa RN Use of terms such as suspected, likely, concern for, or probable (associated with a specific diagnosi s that is being evaluated, monitored, or treated as if it exists) are acceptable and can be coded in the inpatient se tting, when documented at the time of discharge. Please use your independent medical judgment in providing your response. THIS QUERY IS PART OF THE PERMANENT MEDICAL RECORD
--- NOTE | 2023-09-02 09:40 | P.PNCC_ITS ---
Subjective Subjective Date of Service: 09/02/23 Interval History: 62-year-old lady with underlying history of rheumatoid arthritis, hypertension, hypothyroidism admitted on 09/01/2023 with hypoxia. Upon arrival to ER patient noted to be cyanotic with no measurable blood pressure and O2 saturation in 70s. Patient was intubated with tanja intubation cardiac arrest with return of spontaneous circulation after 2 rounds of CPR. Patient admitted to the intensive care unit. Overnight right legwith increased mottling and decreased peripheral pulses. Right lower extremity arterial Doppler obtained and showed no arterial occlusion. New left IJ TLC placed and mottling of the right leg improved, then able to obtain right lower extremity pulses with Doppler. Pressor requirements improving. Critical Care Time (minutes): 60 Physical Exam 2 Vital Signs: Vital Signs: Last Vital Signs Temp 99.3 F 09/02/23 09:00 Pulse 112 H 09/02/23 09:36 Resp 28 H 09/02/23 09:00 BP 109/53 L 09/02/23 09:36 Pulse Ox 94 09/02/23 09:00 O2 Del Method Mechanical Ventil ation 09/02/23 09:00 FiO2 70 09/02/23 09:00 BMI result Body Mass Index 38.1 Const: General: no acute distress and other (Sedated on the vent, intermittently breaking through sedation) Nutritional Appearance: obese Eyes: Sclerae: sclerae normal Neck: Neck: Yes no lymphadenopathy, Yes trachea midline and Yes supple Resp: Effort & Inspection: normal respiratory effort and no respiratory distress Auscultation: clear to auscultation bilaterally Cardio: Rate: tachycardic Rhythm: regular rhythm Heart sounds: no gallops, no murmurs and no rubs GI: Palpation (GI): Soft to palpation and Other GI palpation findings present ( Nontender) Auscultation: normal bowel sounds Extrem: General: Yes no pedal edema, No clubbing, No cyanosis and Yes other (Right lower extremity with improving mottling) Objective Data Labs 09/02/23 06:14 09/02/23 06:14 Labs: Laboratory Results - last 24 hr 09/01/23 09/01/23 09/01/23 10:23 10:30 10:41 WBC RBC Hgb Hct MCV MCH MCHC RDW Plt Count MPV Immature Gran % (Auto) Neut % (Auto) Lymph % (Auto) [place] % (Auto) Eos % (Auto) Baso % (Auto) Lymph # (Auto) [place] # (Auto) Eos # (Auto) Baso # (Auto) Abs Immat Gran (auto) Absolute Neuts (auto) Absolute Nucleated RBC Nucleated RBC % (auto) Neutrophils % (Manual) Band Neutrophils % Lymphocytes % (Manual) Monocytes % (Manual) Eosinophils % (Manual) Metamyelocytes % Myelocytes % Abs Neuts (Manual) Lymphocytes # (Manual) Monocytes # (Manual) Eosinophils # (Manual) Metamyelocytes # Myelocytes # Nucleated RBCs Toxic Vacuolation Platelet Estimate Plt Morphology Comment RBC Morphology PT INR APTT O2 Saturation ABG pH at Pt Temp ABG pCO2 at Pt Temp ABG pO2 at Pt Temp ABG HCO3 ABG Base Excess (Actual) VBG pH VBG pCO2 VBG pO2 VBG HCO3 VBG O2 Saturation VBG Base Excess Sodium Potassium Chloride Carbon Dioxide Anion Gap BUN Creatinine Estim Creat Clear Calc Estimated GFR POC Glucose 21 L* 65 150 H Random Glucose Lactic Acid Lactic Acid F/U @ 2Hr Lactic Acid F/U @ 4Hr Calcium Phosphorus Magnesium Total Bilirubin AST ALT Alkaline Phosphatase Total Creatine Kinase Troponin I High Sens B-Natriuretic Peptide Total Protein Albumin Urine Color Urine Appearance Urine pH Ur Specific [place] Urine Protein Urine Glucose (UA) Urine Ketones Urine Blood Urine Nitrite Ur Leukocyte Esterase Urine RBC Urine WBC Ur Squamous Epith Cells Calcium Oxalate Crystal Urine Bacteria Hyaline Casts Salicylates Urine Opiates Screen Urine Fentanyl Screen Acetaminophen Ur Barbiturates Screen Ur Phencyclidine Scrn Ur Amphetamines Screen U Benzodiazepines Scrn Urine Cocaine Screen U Marijuana (THC) Screen Ethyl Alcohol Influenza Type A (PCR) Influenza Type B (PCR) RSV RNA Qual (PCR) SARS-CoV-2 RNA (RT-PCR) Blood Type Antibody Screen Antibody Identification Crossmatch (AHG) 09/01/23 09/01/23 09/01/23 10:44 10:44 10:47 WBC 7.6 RBC 4.16 L Hgb 13.0 Hct 43.5 MCV 104.6 H MCH 31.3 MCHC 29.9 L RDW 13.9 Plt Count 218 MPV 9.4 Immature Gran % (Auto) 1.3 H Neut % (Auto) 73.5 H Lymph % (Auto) 20.8 [place] % (Auto) 4.0 Eos % (Auto) 0.0 Baso % (Auto) 0.4 Lymph # (Auto) 1.6 [place] # (Auto) 0.3 Eos # (Auto) 0.0 Baso # (Auto) 0.0 Abs Immat Gran (auto) 0.10 H Absolute Neuts (auto) 5.6 Absolute Nucleated RBC 0.030 H Nucleated RBC % (auto) 0.4 H Neutrophils % (Manual) Band Neutrophils % Lymphocytes % (Manual) Monocytes % (Manual) Eosinophils % (Manual) Metamyelocytes % Myelocytes % Abs Neuts (Manual) Lymphocytes # (Manual) Monocytes # (Manual) Eosinophils # (Manual) Metamyelocytes # Myelocytes # Nucleated RBCs Toxic Vacuolation Platelet Estimate Plt Morphology Comment RBC Morphology PT 18.4 H INR 1.5 H APTT 23.2 L O2 Saturation ABG pH at Pt Temp ABG pCO2 at Pt Temp ABG pO2 at Pt Temp ABG HCO3 ABG Base Excess (Actual) VBG pH VBG pCO2 VBG pO2 VBG HCO3 VBG O2 Saturation VBG Base Excess Sodium 141 Potassium 3.9 Chloride 100 Carbon Dioxide 21 L Anion Gap 24 H BUN 25 H Creatinine 1.66 H Estim Creat Clear Calc 41.2 Estimated GFR 32 POC Glucose 324 H Random Glucose 590 H* Lactic Acid 11.3 H* Lactic Acid F/U @ 2Hr Lactic Acid F/U @ 4Hr Calcium 7.4 L D Phosphorus Magnesium 1.8 Total Bilirubin 0.3 AST 710 H ALT 692 H Alkaline Phosphatase 79 Total Creatine Kinase 165 H Troponin I High Sens 64.6 H* B-Natriuretic Peptide 293 H Total Protein 5.4 L Albumin 2.2 L Urine Color Urine Appearance Urine pH Ur Specific [place] Urine Protein Urine Glucose (UA) Urine Ketones Urine Blood Urine Nitrite Ur Leukocyte Esterase Urine RBC Urine WBC Ur Squamous Epith Cells Calcium Oxalate Crystal Urine Bacteria Hyaline Casts Salicylates Urine Opiates Screen Urine Fentanyl Screen Acetaminophen Ur Barbiturates Screen Ur Phencyclidine Scrn Ur Amphetamines Screen U Benzodiazepines Scrn Urine Cocaine Screen U Marijuana (THC) Screen Ethyl Alcohol < 10 Cancelled Influenza Type A (PCR) Influenza Type B (PCR) RSV RNA Qual (PCR) SARS-CoV-2 RNA (RT-PCR) Blood Type Antibody Screen Antibody Identification Crossmatch (AHG) 09/01/23 09/01/23 09/01/23 11:03 11:04 11:37 WBC RBC Hgb Hct MCV MCH MCHC RDW Plt Count MPV Immature Gran % (Auto) Neut % (Auto) Lymph % (Auto) [place] % (Auto) Eos % (Auto) Baso % (Auto) Lymph # (Auto) [place] # (Auto) Eos # (Auto) Baso # (Auto) Abs Immat Gran (auto) Absolute Neuts (auto) Absolute Nucleated RBC Nucleated RBC % (auto) Neutrophils % (Manual) Band Neutrophils % Lymphocytes % (Manual) Monocytes % (Manual) Eosinophils % (Manual) Metamyelocytes % Myelocytes % Abs Neuts (Manual) Lymphocytes # (Manual) Monocytes # (Manual) Eosinophils # (Manual) Metamyelocytes # Myelocytes # Nucleated RBCs Toxic Vacuolation Platelet Estimate Plt Morphology Comment RBC Morphology PT INR APTT O2 Saturation ABG pH at Pt Temp ABG pCO2 at Pt Temp ABG pO2 at Pt Temp ABG HCO3 ABG Base Excess (Actual) VBG pH VBG pCO2 VBG pO2 VBG HCO3 VBG O2 Saturation VBG Base Excess Sodium Potassium Chloride Carbon Dioxide Anion Gap BUN Creatinine Estim Creat Clear Calc Estimated GFR POC Glucose 202 H Random Glucose Lactic Acid Lactic Acid F/U @ 2Hr Lactic Acid F/U @ 4Hr Calcium Phosphorus Magnesium Total Bilirubin AST ALT Alkaline Phosphatase Total Creatine Kinase Troponin I High Sens B-Natriuretic Peptide Total Protein Albumin Urine Color Dark Yellow Urine Appearance Cloudy Urine pH 5.5 Ur Specific [place] 1.020 Urine Protein 30 (1+) H Urine Glucose (UA) Negative Urine Ketones Negative Urine Blood Trace H Urine Nitrite Negative Ur Leukocyte Esterase Negative Urine RBC 0-2 Urine WBC 0-5 Ur Squamous Epith Cells 6-10 Calcium Oxalate Crystal Present Urine Bacteria None Seen Hyaline Casts 6-10 Salicylates Urine Opiates Screen Urine Fentanyl Screen Acetaminophen Ur Barbiturates Screen Ur Phencyclidine Scrn Ur Amphetamines Screen U Benzodiazepines Scrn Urine Cocaine Screen U Marijuana (THC) Screen Ethyl Alcohol Influenza Type A (PCR) Influenza Type B (PCR) RSV RNA Qual (PCR) SARS-CoV-2 RNA (RT-PCR) Blood Type O Positive Antibody Screen POSITIVE Antibody Identification Anti-E Crossmatch (AHG) See Detail 09/01/23 09/01/23 09/01/23 11:57 12:03 13:20 WBC RBC Hgb Hct MCV MCH MCHC RDW Plt Count MPV Immature Gran % (Auto) Neut % (Auto) Lymph % (Auto) [place] % (Auto) Eos % (Auto) Baso % (Auto) Lymph # (Auto) [place] # (Auto) Eos # (Auto) Baso # (Auto) Abs Immat Gran (auto) Absolute Neuts (auto) Absolute Nucleated RBC Nucleated RBC % (auto) Neutrophils % (Manual) Band Neutrophils % Lymphocytes % (Manual) Monocytes % (Manual) Eosinophils % (Manual) Metamyelocytes % Myelocytes % Abs Neuts (Manual) Lymphocytes # (Manual) Monocytes # (Manual) Eosinophils # (Manual) Metamyelocytes # Myelocytes # Nucleated RBCs Toxic Vacuolation Platelet Estimate Plt Morphology Comment RBC Morphology PT INR APTT O2 Saturation 86.0 ABG pH at Pt Temp 7.12 L* ABG pCO2 at Pt Temp 58 H ABG pO2 at Pt Temp 70 L ABG HCO3 19 L ABG Base Excess (Actual) -10.7 VBG pH VBG pCO2 VBG pO2 VBG HCO3 VBG O2 Saturation VBG Base Excess Sodium Potassium Chloride Carbon Dioxide Anion Gap BUN Creatinine Estim Creat Clear Calc Estimated GFR POC Glucose Random Glucose Lactic Acid Lactic Acid F/U @ 2Hr 9.6 H* Lactic Acid F/U @ 4Hr Calcium Phosphorus Magnesium Total Bilirubin AST ALT Alkaline Phosphatase Total Creatine Kinase Troponin I High Sens B-Natriuretic Peptide Total Protein Albumin Urine Color Urine Appearance Urine pH Ur Specific [place] Urine Protein Urine Glucose (UA) Urine Ketones Urine Blood Urine Nitrite Ur Leukocyte Esterase Urine RBC Urine WBC Ur Squamous Epith Cells Calcium Oxalate Crystal Urine Bacteria Hyaline Casts Salicylates < 5.0 L Urine Opiates Screen POSITIVE H Urine Fentanyl Screen Not Detected Acetaminophen < 3 Ur Barbiturates Screen Not Detected Ur Phencyclidine Scrn Not Detected Ur Amphetamines Screen Not Detected U Benzodiazepines Scrn Not Detected Urine Cocaine Screen Not Detected U Marijuana (THC) Screen Not Detected Ethyl Alcohol Influenza Type A (PCR) NEGATIVE Influenza Type B (PCR) NEGATIVE RSV RNA Qual (PCR) NEGATIVE SARS-CoV-2 RNA (RT-PCR) NEGATIVE Blood Type Antibody Screen Antibody Identification Crossmatch (AHG) 09/01/23 09/01/23 09/01/23 15:36 19:41 22:07 WBC RBC Hgb Hct MCV MCH MCHC RDW Plt Count MPV Immature Gran % (Auto) Neut % (Auto) Lymph % (Auto) [place] % (Auto) Eos % (Auto) Baso % (Auto) Lymph # (Auto) [place] # (Auto) Eos # (Auto) Baso # (Auto) Abs Immat Gran (auto) Absolute Neuts (auto) Absolute Nucleated RBC Nucleated RBC % (auto) Neutrophils % (Manual) Band Neutrophils % Lymphocytes % (Manual) Monocytes % (Manual) Eosinophils % (Manual) Metamyelocytes % Myelocytes % Abs Neuts (Manual) Lymphocytes # (Manual) Monocytes # (Manual) Eosinophils # (Manual) Metamyelocytes # Myelocytes # Nucleated RBCs Toxic Vacuolation Platelet Estimate Plt Morphology Comment RBC Morphology PT INR APTT O2 Saturation ABG pH at Pt Temp ABG pCO2 at Pt Temp ABG pO2 at Pt Temp ABG HCO3 ABG Base Excess (Actual) VBG pH 7.30 L VBG pCO2 53 VBG pO2 51 VBG HCO3 26 VBG O2 Saturation 79.0 VBG Base Excess -0.3 Sodium Potassium Chloride Carbon Dioxide Anion Gap BUN Creatinine Estim Creat Clear Calc Estimated GFR POC Glucose 251 H Random Glucose Lactic Acid Lactic Acid F/U @ 2Hr Lactic Acid F/U @ 4Hr 8.4 H* Calcium Phosphorus Magnesium Total Bilirubin AST ALT Alkaline Phosphatase Total Creatine Kinase Troponin I High Sens B-Natriuretic Peptide Total Protein Albumin Urine Color Urine Appearance Urine pH Ur Specific [place] Urine Protein Urine Glucose (UA) Urine Ketones Urine Blood Urine Nitrite Ur Leukocyte Esterase Urine RBC Urine WBC Ur Squamous Epith Cells Calcium Oxalate Crystal Urine Bacteria Hyaline Casts Salicylates Urine Opiates Screen Urine Fentanyl Screen Acetaminophen Ur Barbiturates Screen Ur Phencyclidine Scrn Ur Amphetamines Screen U Benzodiazepines Scrn Urine Cocaine Screen U Marijuana (THC) Screen Ethyl Alcohol Influenza Type A (PCR) Influenza Type B (PCR) RSV RNA Qual (PCR) SARS-CoV-2 RNA (RT-PCR) Blood Type Antibody Screen Antibody Identification Crossmatch (AHG) 09/01/23 09/02/23 09/02/23 22:10 01:48 01:50 WBC RBC Hgb Hct MCV MCH MCHC RDW Plt Count MPV Immature Gran % (Auto) Neut % (Auto) Lymph % (Auto) [place] % (Auto) Eos % (Auto) Baso % (Auto) Lymph # (Auto) [place] # (Auto) Eos # (Auto) Baso # (Auto) Abs Immat Gran (auto) Absolute Neuts (auto) Absolute Nucleated RBC Nucleated RBC % (auto) Neutrophils % (Manual) Band Neutrophils % Lymphocytes % (Manual) Monocytes % (Manual) Eosinophils % (Manual) Metamyelocytes % Myelocytes % Abs Neuts (Manual) Lymphocytes # (Manual) Monocytes # (Manual) Eosinophils # (Manual) Metamyelocytes # Myelocytes # Nucleated RBCs Toxic Vacuolation Platelet Estimate Plt Morphology Comment RBC Morphology PT INR APTT O2 Saturation ABG pH at Pt Temp ABG pCO2 at Pt Temp ABG pO2 at Pt Temp ABG HCO3 ABG Base Excess (Actual) VBG pH 7.28 L VBG pCO2 55 VBG pO2 47 VBG HCO3 26 VBG O2 Saturation 72.0 VBG Base Excess -1.4 Sodium 139 137 Potassium 3.0 L D 3.3 Chloride 98 95 L Carbon Dioxide 24 23 Anion Gap 20 22 H BUN 30 H 31 H Creatinine 1.43 H 1.48 H Estim Creat Clear Calc 47.5 45.9 Estimated GFR 37 36 POC Glucose Random Glucose 218 H 170 H Lactic Acid Lactic Acid F/U @ 2Hr Lactic Acid F/U @ 4Hr Calcium 7.8 L 8.0 L Phosphorus 2.2 L Magnesium 1.2 L* 1.5 L Total Bilirubin AST ALT Alkaline Phosphatase Total Creatine Kinase Troponin I High Sens B-Natriuretic Peptide Total Protein Albumin Urine Color Urine Appearance Urine pH Ur Specific [place] Urine Protein Urine Glucose (UA) Urine Ketones Urine Blood Urine Nitrite Ur Leukocyte Esterase Urine RBC Urine WBC Ur Squamous Epith Cells Calcium Oxalate Crystal Urine Bacteria Hyaline Casts Salicylates Urine Opiates Screen Urine Fentanyl Screen Acetaminophen Ur Barbiturates Screen Ur Phencyclidine Scrn Ur Amphetamines Screen U Benzodiazepines Scrn Urine Cocaine Screen U Marijuana (THC) Screen Ethyl Alcohol Influenza Type A (PCR) Influenza Type B (PCR) RSV RNA Qual (PCR) SARS-CoV-2 RNA (RT-PCR) Blood Type Antibody Screen Antibody Identification Crossmatch (AHG) 09/02/23 09/02/23 09/02/23 06:12 06:14 06:18 WBC 12.3 H RBC 4.41 Hgb 13.6 Hct 42.3 MCV 95.9 D MCH 30.8 MCHC 32.2 RDW 13.9 Plt Count 222 MPV 10.1 Immature Gran % (Auto) Cancelled Neut % (Auto) Cancelled Lymph % (Auto) Cancelled [place] % (Auto) Cancelled Eos % (Auto) Cancelled Baso % (Auto) Cancelled Lymph # (Auto) Cancelled [place] # (Auto) Cancelled Eos # (Auto) Cancelled Baso # (Auto) Cancelled Abs Immat Gran (auto) Cancelled Absolute Neuts (auto) Cancelled Absolute Nucleated RBC 0.170 H Nucleated RBC % (auto) 1.4 H Neutrophils % (Manual) 27 L Band Neutrophils % 32 H Lymphocytes % (Manual) 15 L Monocytes % (Manual) 5 Eosinophils % (Manual) 5 H Metamyelocytes % 11 Myelocytes % 5 Abs Neuts (Manual) 7.3 Lymphocytes # (Manual) 1.8 Monocytes # (Manual) 0.6 Eosinophils # (Manual) 0.6 H Metamyelocytes # 1.4 Myelocytes # 0.6 Nucleated RBCs 1 H Toxic Vacuolation PRESENT Platelet Estimate NORMAL Plt Morphology Comment NORMAL RBC Morphology NORMAL PT INR APTT O2 Saturation ABG pH at Pt Temp ABG pCO2 at Pt Temp ABG pO2 at Pt Temp ABG HCO3 ABG Base Excess (Actual) VBG pH 7.33 VBG pCO2 45 VBG pO2 42 VBG HCO3 24 VBG O2 Saturation 66.0 VBG Base Excess -1.8 Sodium 132 L Potassium 3.9 Chloride 94 L Carbon Dioxide 22 Anion Gap 20 BUN 31 H Creatinine 1.59 H Estim Creat Clear Calc 45.0 Estimated GFR 33 POC Glucose 193 H Random Glucose 187 H Lactic Acid Lactic Acid F/U @ 2Hr Lactic Acid F/U @ 4Hr Calcium 8.0 L Phosphorus 1.9 L Magnesium 1.8 Total Bilirubin AST ALT Alkaline Phosphatase Total Creatine Kinase Troponin I High Sens B-Natriuretic Peptide Total Protein Albumin 2.7 L Urine Color Urine Appearance Urine pH Ur Specific [place] Urine Protein Urine Glucose (UA) Urine Ketones Urine Blood Urine Nitrite Ur Leukocyte Esterase Urine RBC Urine WBC Ur Squamous Epith Cells Calcium Oxalate Crystal Urine Bacteria Hyaline Casts Salicylates Urine Opiates Screen Urine Fentanyl Screen Acetaminophen Ur Barbiturates Screen Ur Phencyclidine Scrn Ur Amphetamines Screen U Benzodiazepines Scrn Urine Cocaine Screen U Marijuana (THC) Screen Ethyl Alcohol Influenza Type A (PCR) Influenza Type B (PCR) RSV RNA Qual (PCR) SARS-CoV-2 RNA (RT-PCR) Blood Type Antibody Screen Antibody Identification Crossmatch (AHG) Microbiology Microbiology Results: Microbiology 09/01/23 10:44 Blood - Venous Blood Culture - Preliminary Prelim: GPC Gram Stain only Progress Note: A&P Assessment and plan (1) Pulmonary aspiration: Status: Acute (2) Shock: Status: Acute (3) Ischemic hepatitis: Status: Acute (4) Cardiac arrest: Status: Acute (5) Acute kidney injury: Status: Acute (6) Acute hypoxic respiratory failure: Status: Acute (7) Hypothyroidism: Status: Acute (8) Rheumatoid arthritis: Status: Acute Plan Assessment: 62-year-old lady admitted after cardiac arrest, now on ventilatory support Plan: Neuro: Brief PEA/asystole arrest, also with significant hemodynamic instability, not a candidate for hypothermia. Cardiac: Cardiac arrest, likely secondary to hypoxia. Returned spontaneous circulation after 2 rounds of CPR. 2D echo is pending. Distributive shock, continue to titrate off pressors as tolerated. Pulmonary: Acute hypoxic respiratory failure likely secondary to pulmonary aspiration, intubated during the CPR. Continue to titrate off ventilatory support as tolerated. Renal: Acute kidney injury, likely secondary from hypoperfusion/ATN with cardiac arrest. Non oliguric. Continue to monitor renal indices and urine output. Endo: No acute issues. GI: Ischemic hepatitis, secondary to cardiac arrest. Continue to monitor liver function. ID: Pulmonary aspiration, empirically covered with broad-spectrum antibiotics. Heme/Onc: No acute issues. Psych: No acute issues. Miscellaneous: No acute issues. Prophylaxis: Heparin, ppi Diet: NPO Critical care time spent: 60 minutes Quality Stroke Does the patient have a stroke diagnosis?: No VTE Prior VTE?: No VTE Risk Level:: Medical - moderate - high VTE Device Contraindication: N/A - Device Ordered VTE Drug Contraindication: N/A - Med Ordered
--- NOTE | 2023-09-02 10:04 | MHC.CLN ---
PT IS INTUBATED AND SEDATED PT WITH INCREASED NUTRITION RISK R/T CHRISTIAN LI CURRENTLY NPO IF TF NEEDED; RECOMMEND PROMOTE AT MAX GOAL RATE 50ML/HR TO PROVIDE 1200KCALS (1656KCALS TOTAL WITH SEDATION; 23KCALS/KG), 75G PROTEIN (1.04G/KG), 1007 ML FREE WATER FROM FORMULA MONITOR TOLERANCE, RESIDUALS AND LYTES MONITOR FOR DIET ADVANCEMENT SEE ALSO FULL CLINICAL NUTRITION ASSESSMENT
[2023-09-02 11:19] LABS: Glucose, Whole Blood 147 mg/dL (60-115)
[2023-09-02] MEDS: EPINEPHrine 5 MG in Dextrose 5 % 250 ML 58.75 MG IVCONT (12:22)
[2023-09-02 12:37] LABS: Venous Blood Gas Refer to POC result
--- NOTE | 2023-09-02 13:42 | MHC.CM.PN ---
Pt is intubated following cardiac arrest w/2 rounds of CPR inititated and unable to participate in CM assessment: Call placed to HCP, dtr Aliyah for information. Per Aliyah, pt resides w/her and has 31.5 hrs of Dereck care provided by pt's sister. Pt uses a w/c and family assists w/transportation. Pt also has a PT-1 form. CM received call from Iam Machuca ([phone]) from [facility] who states EMS filed a protective order for pt on 09/01/23. Explained pt's impaired state at this time. Will contact [facility] returned case inspector when pt if/when pt can discuss care needs. At this time, pt's d/c status is not known as she is in serious condition. CM to follow for finalization of d/c plan: HCP on filed and verified w/BEN Ly in chart: PCP Dr. Jenae Khan.
[2023-09-02] MEDS: Dextrose 50 % 25 GM/50 ML SYRINGE IVPUSH (17:29)
[2023-09-02 17:30] LABS: Glucose, Whole Blood 61 mg/dL (60-115)
[2023-09-02] MEDS: Dextrose 10 % 1,000 ML 50 ML IVCONT (17:46)
[2023-09-02 17:49] LABS: Glucose, Whole Blood 163 mg/dL (60-115)
[2023-09-02] MEDS: EPINEPHrine 5 MG in Dextrose 5 % 250 ML 29.38 MG IVCONT (19:06)
[2023-09-02] MEDS: propofoL 1,000 MG/100 ML VIAL 23.04 MG IVCONT (19:58)
[2023-09-03] VITALS (57 sets, daily range): BP systolic 99–146; BP diastolic 55–89; PULSE 87–116; RESP 15–23; TEMP 34.5–38.2; O2SAT 91–95; BMI 37.3
[2023-09-03] MEDS: propofoL 1,000 MG/100 ML VIAL 23.04 MG IVCONT ×2 (00:08→03:30)
[2023-09-03 00:16] LABS: Glucose, Whole Blood 107 mg/dL (60-115)
[2023-09-03] MEDS: Piperacillin Sodium/Tazobactam 3.375 GM in 0.9 % Sodium Chloride 50 ML IV ×4 (01:12→19:36)
[2023-09-03] MEDS: Albumin Human 25 % 100 ML IV (01:45)
[2023-09-03] MEDS: Heparin Sodium,Porcine 5,000 UNIT/ML VIAL 5000 UNIT SUBCUT ×3 (03:47→19:37)
[2023-09-03 04:41] LABS: VBG Base Excess 5.8 mmol/L; VBG HCO3 29 mmol/L (22-26); VBG pCO2 38 mmHg; VBG pH 7.48 (7.32-7.43); VBG pO2 63 mmHg
[2023-09-03 04:47] LABS: Venous Blood Gas Refer to POC result
[2023-09-03 04:53] LABS: Hematocrit 35.5 % (37.0-47.0); Mean Corpuscular HGB Conc 33.8 g/dl (31.0-35.0); Mean Corpuscular Hemoglobin 31.8 pg (27.0-33.0); Mean Corpuscular Volume 94.2 fL (80.0-98.0); Mean Platelet Volume 10.1 fL (9.4-12.3); Platelet Count 152 X10*3/uL (160-400); Red Blood Count 3.77 X10*6/uL (4.20-5.50); Red Cell Distribution Width 14.8 % (11.0-16.0)
[2023-09-03 05:04] LABS: WBC ABN SCTR FOR CBC 1
[2023-09-03 05:05] LABS: White Blood Count 11.7 X10*3/uL (4.8-10.8)
[2023-09-03 05:18] LABS: Alanine Aminotransferase 338 U/L (0-31); Albumin Level 3.6 g/dL (3.5-5.0); Alkaline Phosphatase 79 U/L (39-117); Anion Gap 22 (12-20); Aspartate Amino Transferase 235 U/L (5-31); Bilirubin Total 2.3 mg/dL (0.0-1.0); Blood Urea Nitrogen 30 mg/dL (9-16); Calcium 8.4 mg/dL (8.4-10.2); Carbon Dioxide 23 mmol/L (22-29); Chloride 98 mmol/L (96-108); Estimated Glomerular Filt Rate 37; Glucose Random 108 mg/dL (60-115); Magnesium 1.9 mg/dL (1.6-2.6); Phosphorus 4.5 mg/dL (2.7-4.5); Potassium 4.5 mmol/L (3.3-5.1); Sodium 138 mmol/L (135-145); Total Protein 6.4 g/dL (6.5-8.0)
[2023-09-03 05:20] LABS: Band Neutrophils Percent 36 % (3-5); Basophils Abs Manual 0.1 X10*3/uL (0.0-0.2); Eosinophils Absolute Manual 0.1 X10*3/uL (0.0-0.4); Eosinophils Percent Manual 1 % (0-4); Lymphocytes Absolute Manual 0.6 X10*3/uL (1.2-4.9); Lymphocytes Percent Manual 5 % (20-40); Metamyelocytes Absolute 0.4 X10*3/uL; Metamyelocytes Percent 3 %; Monocytes Absolute Manual 0.2 X10*3/uL (0.1-1.2); Monocytes Percent Manual 2 % (2-11); Neutrophils Absolute Manual 10.4 X10*3/uL (2.0-8.3); Neutrophils Percent Manual 53 % (45-73)
[2023-09-03 05:24] LABS: Basophilic Stippling 1+ (0-2) /OIF; Ovalocytes 1+ (5-14) /OIF; RBC Morphology NOTED; Tear Drop Cells 1+ (0-2) /OIF; Toxic Vacuolation PRESENT
[2023-09-03 05:25] LABS: Large Platelet PRESENT; Platelet Estimate SLIGHTLY DECREASED (NORMAL); Platelet Morphology Comment NOTED
[2023-09-03 05:26] LABS: Dohle Bodies PRESENT; Polychromasia 1+ (0-2) /OIF
[2023-09-03] MEDS: Pantoprazole Sodium 40 MG/10 ML VIAL IVPUSH (05:49)
--- NOTE | 2023-09-03 07:00 | CA_ITS ---
Transthoracic Echocardiogram Patient (Last, First, Middle): Jane Mcdonald, Gender: Female Date of : 1960 Age: 62 Procedure Date: 09/03/2023 Procedure Type: Transthoracic Echocardiogram Location: ICU Height: 165.1 cm Weight: 103.42 kg BSA: 2.09 m2 Heart Rate: bpm BP: 113 / 68 mmHg Social Media Designer: RISSA Referring MD: Usman Willett MD Symptoms: s/p cardiac arrest Study Quality: Fair, contrast Conclusions: - Normal left ventricular size, thickness, and systolic function. The visually estimated ejection fraction is between 55-60%. There is no evidence of regional wall motion abnormalities. Diastolic function is normal for age. - Normal right ventricular cavity size and systolic function. - There is mild dilatation of the ascending aorta measuring 3.50 cm. Findings Procedure Information Contrast agent, definity, is being given per protocol without apparent complications. Left Ventricle Normal left ventricular size, thickness, and systolic function. The visually estimated ejection fraction is between 55-60%. There is no evidence of regional wall motion abnormalities. Diastolic function is normal for age. Right Ventricle Normal right ventricular cavity size and systolic function. Atria The left atrium is normal in size. Aortic Valve There is a normal trileaflet aortic valve. There is mild calcification of the aortic valve. There is no aortic valve stenosis. There is no aortic valve regurgitation. Mitral Valve The mitral valve appears normal. There is no mitral valve regurgitation. There is no mitral valve stenosis. Pulmonic Valve The pulmonic valve is likely normal. Tricuspid Valve Normal tricuspid valve structure. There is no tricuspid valve regurgitation. Tricuspid regurgitation envelope is inadequate for calculation of right ventricular systolic pressure. Indeterminate right atrial pressure. Great Vessels The pulmonary artery was not well visualized. There is mild dilatation of the ascending aorta measuring 3.50 cm. Venous The inferior vena cava is normal in size and collapses greater than 50% with inspiration. Pericardium/Pleural There is no evidence of pericardial effusion. Measurements 2D Linear Measurements IVSd: 1.00 0.6-0.9/0.6-1.0 cm LVIDd: 4.74 3.9-5.3/4.2-5.9 cm LVIDd Index: 2.27 2.4-3.2/2.2-3.1 cm/m2 LVIDs: 3.04 2.0-3.6 cm LVPWd: 1.09 0.7-1.1 cm LA Diam: 3.40 2.7-3.8/3.0-4.0 cm LAIDs Index: 1.63 1.5-2.3 cm/m2 LV Mass: 220.31 67-162/88-224 g LV Mass Index: 105.41 43-95/49-115 g/m2 LVOT Diam: 2.10 3.0+(-)1.3 cm Mitral Valve MV Pk E: 0.82 MV PK A: 0.88 MV Decel Time: 159.00 E/A: 0.90 E'Lateral: 13.90 E'Medial: 5.33 E/E' Med: 15.40 E/E' Lat: 5.90 PHT: 47.00 MVA PHT: 4.68 Decel Wood: 5.16 Aortic Valve AoV Pk Mehran: 1.57 AoV Mn Mehran: 1.18 AoV VTI: 0.27 AoV Pk Grad: 10.00 Aov Mn Grad: 6.00 STANLEY Cont.VTI: 2.64 LVOT LVOT Pk Mehran: 1.25 LVOT Mn Mehran: 0.90 LVOT VTI: 0.20 LVOT Pk Grad: 6.00 LVOT Mn Grad: 4.00 LVOT Diam: 2.10 LVOT Area: 3.46 Diastolic Function MV Pk E: 0.82 MV Pk A: 0.88 E/A: 0.90 E'Medial: 5.33 E/E' Med: 15.40 E' Laterial: 13.90 E/E' Lat: 5.90 Right Ventricle TAPSE (mm): 20.30 TVS' Mehran: 9.25 Tricuspid Valve TR Pk Mehran: 2.17 TR Pk Grad: 19.00 Great Vessels Aorta Sinus of Valsalva: 3.30 2.0-3.5 cm Ao Asc: 3.50 2.1-3.4 cm Pulmonary Valve PV Pk Mehran: 1.11 Peak PV Grad: 5.00 Updated in Other Vendor System with Status of Final Pollo Pineda MD electronically signed on 09/03/2023 5:44:33 PM with status of Final
[2023-09-03] MEDS: propofoL 1,000 MG/100 ML VIAL 17.28 MG IVCONT (08:31)
[2023-09-03] MEDS: Chlorhexidine Gluc Oral Rinse 15 ML MOUTHWASH BUCCAL ×3 (08:31→19:38)
--- NOTE | 2023-09-03 09:44 | P.PNCC_ITS ---
Subjective Subjective Date of Service: 09/03/23 Interval History: 62-year-old lady with underlying history of rheumatoid arthritis, hypertension, hypothyroidism admitted on 09/01/2023 with hypoxia. Upon arrival to ER patient noted to be cyanotic with no measurable blood pressure and O2 saturation in 70s. Patient was intubated with tanja intubation cardiac arrest with return of spontaneous circulation after 2 rounds of CPR. Patient admitted to the intensive care unit. Hospital course significant for profound hypoxemia and shock with ischemic hepatitis and ATN. No events overnight. Pressor requirements continue to improve. Critical Care Time (minutes): 60 Physical Exam 2 Vital Signs: Vital Signs: Last Vital Signs Temp 99.3 F 09/03/23 09:00 Pulse 100 09/03/23 09:08 Resp 21 H 09/03/23 09:00 BP 112/68 09/03/23 09:08 Pulse Ox 91 L 09/03/23 09:00 O2 Del Method Mechanical Ventil ation 09/03/23 09:00 FiO2 60 09/03/23 09:00 BMI result Body Mass Index 37.3 Const: General: no acute distress and other (Sedated on the vent) N utritional Appearance: obese Eyes: Sclerae: sclerae normal EOM: EOMs intact bilaterally Neck: Neck: Yes no lymphadenopathy, Yes trachea midline and Yes supple Resp: Auscultation: crackles (Diffuse bilateral) Cardio: Rate: tachycardic Rhythm: regular rhythm Heart sounds: no gallops, no murmurs and no rubs GI: Palpation (GI): Soft to palpation and Other GI palpation findings present ( Nontender) Auscultation: normal bowel sounds Extrem: General: No clubbing, No cyanosis and Yes edema (Trace bilateral) Objective Data Labs 09/03/23 04:11 09/03/23 04:11 Labs: Laboratory Results - last 24 hr 09/02/23 09/02/23 09/02/23 11:15 17:24 17:44 WBC RBC Hgb Hct MCV MCH MCHC RDW Plt Count MPV Immature Gran % (Auto) Neut % (Auto) Lymph % (Auto) [place] % (Auto) Eos % (Auto) Baso % (Auto) Lymph # (Auto) [place] # (Auto) Eos # (Auto) Baso # (Auto) Abs Immat Gran (auto) Absolute Neuts (auto) Absolute Nucleated RBC Nucleated RBC % (auto) Neutrophils % (Manual) Band Neutrophils % Lymphocytes % (Manual) Monocytes % (Manual) Eosinophils % (Manual) Metamyelocytes % Abs Neuts (Manual) Lymphocytes # (Manual) Monocytes # (Manual) Eosinophils # (Manual) Basophils # (Manual) Metamyelocytes # Toxic Vacuolation Dohle Bodies Platelet Estimate Large Platelets Plt Morphology Comment RBC Morphology Polychromasia Basophilic Stippling Tear Drop Cells Ovalocytes VBG pH VBG pCO2 VBG pO2 VBG HCO3 VBG O2 Saturation VBG Base Excess Sodium Potassium Chloride Carbon Dioxide Anion Gap BUN Creatinine Estim Creat Clear Calc Estimated GFR POC Glucose 147 H 61 163 H Random Glucose Calcium Phosphorus Magnesium Total Bilirubin AST ALT Alkaline Phosphatase Total Protein Albumin 09/03/23 09/03/23 09/03/23 00:12 04:11 04:35 WBC 11.7 H RBC 3.77 L Hgb 12.0 Hct 35.5 L MCV 94.2 MCH 31.8 MCHC 33.8 RDW 14.8 Plt Count 152 L D MPV 10.1 Immature Gran % (Auto) Cancelled Neut % (Auto) Cancelled Lymph % (Auto) Cancelled [place] % (Auto) Cancelled Eos % (Auto) Cancelled Baso % (Auto) Cancelled Lymph # (Auto) Cancelled [place] # (Auto) Cancelled Eos # (Auto) Cancelled Baso # (Auto) Cancelled Abs Immat Gran (auto) Cancelled Absolute Neuts (auto) Cancelled Absolute Nucleated RBC 0.000 Nucleated RBC % (auto) 0.0 Neutrophils % (Manual) 53 Band Neutrophils % 36 H Lymphocytes % (Manual) 5 L Monocytes % (Manual) 2 Eosinophils % (Manual) 1 Metamyelocytes % 3 Abs Neuts (Manual) 10.4 H Lymphocytes # (Manual) 0.6 L Monocytes # (Manual) 0.2 Eosinophils # (Manual) 0.1 Basophils # (Manual) 0.1 Metamyelocytes # 0.4 Toxic Vacuolation PRESENT Dohle Bodies PRESENT Platelet Estimate SLIGHTLY DECREASED Large Platelets PRESENT Plt Morphology Comment NOTED RBC Morphology NOTED Polychromasia 1+ (0-2) Basophilic Stippling 1+ (0-2) Tear Drop Cells 1+ (0-2) Ovalocytes 1+ (5-14) VBG pH 7.48 H VBG pCO2 38 VBG pO2 63 VBG HCO3 29 H VBG O2 Saturation 90.0 VBG Base Excess 5.8 Sodium 138 Potassium 4.5 Chloride 98 Carbon Dioxide 23 Anion Gap 22 H BUN 30 H Creatinine 1.43 H Estim Creat Clear Calc 50.0 Estimated GFR 37 POC Glucose 107 Random Glucose 108 Calcium 8.4 Phosphorus 4.5 Magnesium 1.9 Total Bilirubin 2.3 H AST 235 H ALT 338 H Alkaline Phosphatase 79 Total Protein 6.4 L Albumin 3.6 Microbiology Microbiology Results: Microbiology 09/01/23 11:57 Blood - Venous Blood Culture - Preliminary No growth after 24 hours. 09/01/23 10:44 Blood - Venous Blood Culture - Preliminary Prelim: GPC Gram Stain only Progress Note: A&P Assessment and plan (1) Pulmonary aspiration: Status: Acute (2) Ischemic hepatitis: Status: Acute (3) Cardiac arrest: Status: Acute (4) Acute kidney injury: Status: Acute (5) Acute hypoxic respiratory failure: Status: Acute (6) Rheumatoid arthritis: Status: Acute Plan Assessment: 62-year-old lady admitted after cardiac arrest, now on ventilatory support Plan: Neuro: Brief PEA/asystole arrest, also with significant hemodynamic instability, not a candidate for hypothermia. Cardiac: Cardiac arrest, likely secondary to hypoxia. Return of spontaneous circulation after 2 rounds of CPR. 2D echo is pending. Distributive shock, continue to titrate off pressors as tolerated. Pulmonary: Acute hypoxic respiratory failure likely secondary to pulmonary aspiration, intubated during the CPR. Continue to titrate off ventilatory support as tolerated. Renal: Acute kidney injury, likely secondary from hypoperfusion/ATN with cardiac arrest, improving. Non oliguric. Continue to monitor renal indices and urine output. Endo: No acute issues. GI: Ischemic hepatitis, secondary to cardiac arrest, improving. Continue to monitor liver function. ID: Pulmonary aspiration, empirically covered with broad-spectrum antibiotics. Heme/Onc: No acute issues. Psych: No acute issues. Miscellaneous: No acute issues. Prophylaxis: Heparin, ppi Diet: NPO Critical care time spent: 60 minutes Quality Stroke Does the patient have a stroke diagnosis?: No VTE Prior VTE?: No VTE Risk Level:: Medical - moderate - high VTE Device Contraindication: N/A - Device Ordered VTE Drug Contraindication: N/A - Med Ordered
[2023-09-03 11:13] LABS: Glucose, Whole Blood 140 mg/dL (60-115)
[2023-09-03] MEDS: Dextrose 10 % 1,000 ML 50 ML IVCONT (12:42)
--- NOTE | 2023-09-03 14:17 | MHC.CM.PN ---
Pt continues care in ICU: presently on ventilatory support with plans to wean from vent today w/hope for extubation. Pt is off epi and her Levo requirements are lower. Pt has a new elder at risk case w/JEREMÍAS, putty and patch worker Iam - MOO to f/u once pt's d/c needs are better assessed. Likely, pt will need STR - will await extubation and PT evals before STR referrals made.
[2023-09-03 17:45] LABS: Glucose, Whole Blood 164 mg/dL (60-115)
[2023-09-03] MEDS: propofoL 1,000 MG/100 ML VIAL 11.52 MG IVCONT (23:57)
[2023-09-04] VITALS (48 sets, daily range): BP systolic 88–145; BP diastolic 49–83; PULSE 77–112; RESP 12–31; TEMP 34.9–38.6; O2SAT 90–96; BMI 36.7
[2023-09-04 00:02] LABS: Glucose, Whole Blood 158 mg/dL (60-115)
[2023-09-04] MEDS: Piperacillin Sodium/Tazobactam 3.375 GM in 0.9 % Sodium Chloride 50 ML IV ×4 (01:56→20:44)
[2023-09-04] MEDS: Heparin Sodium,Porcine 5,000 UNIT/ML VIAL 5000 UNIT SUBCUT ×3 (04:19→20:44)
[2023-09-04 05:39] LABS: VBG Base Excess 9.4 mmol/L; VBG HCO3 34 mmol/L (22-26); VBG pCO2 46 mmHg; VBG pH 7.47 (7.32-7.43); VBG pO2 57 mmHg
[2023-09-04 05:44] LABS: Venous Blood Gas Refer to POC result
[2023-09-04] MEDS: Pantoprazole Sodium 40 MG/10 ML VIAL IVPUSH (05:59)
[2023-09-04] MEDS: propofoL 1,000 MG/100 ML VIAL 11.52 MG IVCONT (06:04)
[2023-09-04 06:11] LABS: Glucose, Whole Blood 138 mg/dL (60-115)
[2023-09-04 06:16] LABS: MANUAL DIFF FLAG NO
[2023-09-04 06:19] LABS: Basophils Absolute Auto 0.1 X10*3/uL (0.0-0.2); Basophils Percent Auto 0.8 % (0-2); Eosinophils Absolute Auto 0.1 X10*3/uL (0.0-0.4); Eosinophils Percent Auto 0.9 % (0-4); Hematocrit 36.6 % (37.0-47.0); Hemoglobin 11.6 g/dl (12.0-16.0); Imm Gran Abs Auto 0.07 X10*3/uL (0.00-0.03); Imm Gran Pct Auto 0.6 % (0.0-0.4); Lymphocytes Absolute Auto 1.3 X10*3/uL (1.2-4.9); Lymphocytes Percent Auto 10.5 % (20-40); Mean Corpuscular HGB Conc 31.7 g/dl (31.0-35.0); Mean Corpuscular Hemoglobin 30.4 pg (27.0-33.0); Mean Corpuscular Volume 95.8 fL (80.0-98.0); Mean Platelet Volume 10.2 fL (9.4-12.3); Monocytes Absolute Auto 0.6 X10*3/uL (0.1-1.2); Neutrophils Absolute Auto 9.8 x10*3/uL (2.0-8.3); Neutrophils Percent Auto 82.2 % (45-73); Platelet Count 143 X10*3/uL (160-400); Red Blood Count 3.82 X10*6/uL (4.20-5.50); Red Cell Distribution Width 15.3 % (11.0-16.0); White Blood Count 11.9 X10*3/uL (4.8-10.8)
[2023-09-04 06:38] LABS: Alanine Aminotransferase 267 U/L (0-31); Albumin Level 3.1 g/dL (3.5-5.0); Alkaline Phosphatase 91 U/L (39-117); Anion Gap 11 (12-20); Aspartate Amino Transferase 149 U/L (5-31); Bilirubin Total 1.7 mg/dL (0.0-1.0); Blood Urea Nitrogen 21 mg/dL (9-16); Calcium 8.5 mg/dL (8.4-10.2); Carbon Dioxide 29 mmol/L (22-29); Chloride 105 mmol/L (96-108); Creatinine Clr Calc Pharmacy 72.2; Estimated Glomerular Filt Rate 59; Glucose Random 152 mg/dL (60-115); Potassium 3.2 mmol/L (3.3-5.1); Sodium 142 mmol/L (135-145); Total Protein 5.9 g/dL (6.5-8.0)
[2023-09-04] MEDS: Potassium Phosphate/NS 15 MMOL/250 ML PLAST..BAG 62.5 MMOL IV (07:43)
[2023-09-04] MEDS: Albumin Human 25 % 100 ML IV ×2 (07:43→14:15)
[2023-09-04] MEDS: Chlorhexidine Gluc Oral Rinse 15 ML MOUTHWASH BUCCAL ×3 (07:44→20:44)
[2023-09-04] MEDS: Dextrose 10 % 1,000 ML 50 ML IVCONT (07:52)
--- NOTE | 2023-09-04 09:32 | PM.CCPN ---
Subjective Subjective Date of Service: 09/04/23 Interval History: 62-year-old lady with underlying history of rheumatoid arthritis, hypertension, hypothyroidism admitted on 09/01/2023 with hypoxia. Upon arrival to ER patient noted to be cyanotic with no measurable blood pressure and O2 saturation in 70s. Patient was intubated with tanja intubation cardiac arrest with return of spontaneous circulation after 2 rounds of CPR. Patient admitted to the intensive care unit. Hospital course significant for profound hypoxemia and shock with ischemic hepatitis and ATN. No events overnight. Critical Care Time (minutes): 60 Physical Exam Vital Signs: Vital Signs: Last Vital Signs Temp 100.6 F H 09/04/23 09:00 Pulse 87 09/04/23 09:10 Resp 16 09/04/23 09:00 BP 126/71 09/04/23 09:10 Pulse Ox 95 09/04/23 09:00 O2 Del Method Mechanical Ventil ation 09/04/23 09:00 FiO2 55 09/04/23 09:00 BMI result Body Mass Index 36.7 Const: General: no acute distress and other (sedated on the vent) Eyes: Sclerae: sclerae normal EOM: EOMs intact bilaterally Neck: Neck: Yes trachea midline Resp: Auscultation: clear to auscultation bilaterally Cardio: Rate: regular rate Rhythm: regular rhythm Heart sounds: no gallops, no murmurs and no rubs GI: Palpation (GI): Soft to palpation and Other GI palpation findings present ( Nontender) Auscultation: normal bowel sounds Extrem: General: Yes no pedal edema, No clubbing and No cyanosis Objective Data Labs 09/04/23 05:30 09/04/23 05:30 Labs: Laboratory Results - last 24 hr 09/03/23 09/03/23 09/03/23 11:10 17:39 23:56 WBC RBC Hgb Hct MCV MCH MCHC RDW Plt Count MPV Immature Gran % (Auto) Neut % (Auto) Lymph % (Auto) [place] % (Auto) Eos % (Auto) Baso % (Auto) Lymph # (Auto) [place] # (Auto) Eos # (Auto) Baso # (Auto) Abs Immat Gran (auto) Absolute Neuts (auto) Absolute Nucleated RBC Nucleated RBC % (auto) VBG pH VBG pCO2 VBG pO2 VBG HCO3 VBG O2 Saturation VBG Base Excess Sodium Potassium Chloride Carbon Dioxide Anion Gap BUN Creatinine Estim Creat Clear Calc Estimated GFR POC Glucose 140 H 164 H 158 H Random Glucose Calcium Phosphorus Magnesium Total Bilirubin AST ALT Alkaline Phosphatase Total Protein Albumin 09/04/23 09/04/23 09/04/23 05:30 05:32 06:07 WBC 11.9 H RBC 3.82 L Hgb 11.6 L Hct 36.6 L MCV 95.8 MCH 30.4 MCHC 31.7 RDW 15.3 Plt Count 143 L MPV 10.2 Immature Gran % (Auto) 0.6 H Neut % (Auto) 82.2 H Lymph % (Auto) 10.5 L [place] % (Auto) 5.0 Eos % (Auto) 0.9 Baso % (Auto) 0.8 Lymph # (Auto) 1.3 [place] # (Auto) 0.6 Eos # (Auto) 0.1 Baso # (Auto) 0.1 Abs Immat Gran (auto) 0.07 H Absolute Neuts (auto) 9.8 H Absolute Nucleated RBC 0.000 Nucleated RBC % (auto) 0.0 VBG pH 7.47 H VBG pCO2 46 VBG pO2 57 VBG HCO3 34 H VBG O2 Saturation 86.0 VBG Base Excess 9.4 Sodium 142 Potassium 3.2 L D Chloride 105 Carbon Dioxide 29 Anion Gap 11 L BUN 21 H Creatinine 0.97 Estim Creat Clear Calc 72.2 Estimated GFR 59 POC Glucose 138 H Random Glucose 152 H Calcium 8.5 Phosphorus 2.0 L Magnesium 2.0 Total Bilirubin 1.7 H AST 149 H ALT 267 H Alkaline Phosphatase 91 Total Protein 5.9 L Albumin 3.1 L Microbiology Microbiology Results: Microbiology 09/01/23 11:57 Blood - Venous Blood Culture - Preliminary No growth after 48 hours. 09/01/23 10:44 Blood - Venous Blood Culture - Preliminary Enterococcus/Streptococcus sp Coag negative Staphylococcus Progress Note: A&P Assessment and plan (1) Pulmonary aspiration: Status: Acute (2) Shock: Status: Acute (3) Cardiac arrest: Status: Acute (4) Ischemic hepatitis: Status: Acute (5) Acute kidney injury: Status: Acute (6) Acute hypoxic respiratory failure: Status: Acute Plan Assessment: 62-year-old lady admitted after cardiac arrest, now on ventilatory support Plan: Neuro: Brief PEA/asystole arrest, also with significant hemodynamic instability, not a candidate for hypothermia. Cardiac: Cardiac arrest, likely secondary to hypoxia. Return of spontaneous circulation after 2 rounds of CPR. 2D echo is essentially normal. Distributive shock, continue to titrate off pressors as tolerated. Pulmonary: Acute hypoxic respiratory failure likely secondary to pulmonary aspiration, intubated during the CPR. Continue to titrate off ventilatory support as tolerated. Renal: Acute kidney injury, likely secondary from hypoperfusion/ATN with cardiac arrest, improving. Non oliguric. Continue to monitor renal indices and urine output. Endo: No acute issues. GI: Ischemic hepatitis, secondary to cardiac arrest, improving. Continue to monitor liver function. ID: Pulmonary aspiration, empirically covered with broad-spectrum antibiotics. Heme/Onc: No acute issues. Psych: No acute issues. Miscellaneous: No acute issues. Prophylaxis: Heparin, ppi Diet: NPO Critical care time spent: 60 minutes Quality Stroke Does the patient have a stroke diagnosis?: No VTE Prior VTE?: No VTE Risk Level:: Medical - moderate - high VTE Device Contraindication: N/A - Device Ordered VTE Drug Contraindication: N/A - Med Ordered
--- NOTE | 2023-09-04 09:36 | MHC.CLN ---
F/U PT REMAINS INTUBATED AND SEDATED CURRENTLY DAY 3 NPO DISCUSSED AT ROUNDS WITH MD-POSSIBLE EXTUBATION TODAY IF TF NEEDED; RECOMMEND PROMOTE AT MAX GOAL RATE 50ML/HR TO PROVIDE 1200KCALS (1656KCALS TOTAL WITH SEDATION; 23KCALS/KG), 75G PROTEIN (1.04G/KG), 1007 ML FREE WATER FROM FORMULA MONITOR TOLERANCE, RESIDUALS AND LYTES MONITOR FOR DIET ADVANCEMENT
[2023-09-04 11:42] LABS: Glucose, Whole Blood 130 mg/dL (60-115)
[2023-09-04 17:44] LABS: Glucose, Whole Blood 149 mg/dL (60-115)
[2023-09-04 23:58] LABS: Glucose, Whole Blood 145 mg/dL (60-115)
[2023-09-05] VITALS (36 sets, daily range): BP systolic 88–157; BP diastolic 46–96; PULSE 67–105; RESP 12–27; TEMP 34.8–38.6; O2SAT 92–98
[2023-09-05] MEDS: Norepinephrine Bitartrate/D5W 8 MG/250 ML PLAST..BAG 11.25 MG IV (00:48)
[2023-09-05] MEDS: Dextrose 10 % 1,000 ML 50 ML IVCONT (00:58)
[2023-09-05] MEDS: Piperacillin Sodium/Tazobactam 3.375 GM in 0.9 % Sodium Chloride 50 ML IV ×4 (02:15→20:02)
[2023-09-05] MEDS: Heparin Sodium,Porcine 5,000 UNIT/ML VIAL 5000 UNIT SUBCUT ×3 (04:44→19:57)
[2023-09-05 05:45] LABS: VBG HCO3 34 mmol/L (22-26); VBG pCO2 51 mmHg; VBG pH 7.43 (7.32-7.43); VBG pO2 73 mmHg
[2023-09-05 05:49] LABS: MANUAL DIFF FLAG NO
[2023-09-05 05:51] LABS: Basophils Absolute Auto 0.1 X10*3/uL (0.0-0.2); Basophils Percent Auto 0.8 % (0-2); Eosinophils Absolute Auto 0.2 X10*3/uL (0.0-0.4); Eosinophils Percent Auto 1.9 % (0-4); Hematocrit 34.4 % (37.0-47.0); Hemoglobin 11.1 g/dl (12.0-16.0); Imm Gran Abs Auto 0.05 X10*3/uL (0.00-0.03); Imm Gran Pct Auto 0.6 % (0.0-0.4); Lymphocytes Absolute Auto 1.1 X10*3/uL (1.2-4.9); Lymphocytes Percent Auto 13.5 % (20-40); Mean Corpuscular HGB Conc 32.3 g/dl (31.0-35.0); Mean Corpuscular Hemoglobin 31.3 pg (27.0-33.0); Mean Corpuscular Volume 96.9 fL (80.0-98.0); Mean Platelet Volume 10.5 fL (9.4-12.3); Monocytes Absolute Auto 0.7 X10*3/uL (0.1-1.2); Neutrophils Absolute Auto 6.3 x10*3/uL (2.0-8.3); Neutrophils Percent Auto 75.2 % (45-73); Platelet Count 122 X10*3/uL (160-400); Red Blood Count 3.55 X10*6/uL (4.20-5.50); Red Cell Distribution Width 15.2 % (11.0-16.0); White Blood Count 8.4 X10*3/uL (4.8-10.8)
[2023-09-05 05:52] LABS: Albumin Level 3.4 g/dL (3.5-5.0); Anion Gap 13 (12-20); Blood Urea Nitrogen 21 mg/dL (9-16); Calcium 8.7 mg/dL (8.4-10.2); Carbon Dioxide 30 mmol/L (22-29); Chloride 103 mmol/L (96-108); Estimated Glomerular Filt Rate > 60; Glucose Random 156 mg/dL (60-115); Magnesium 1.7 mg/dL (1.6-2.6); Phosphorus 1.6 mg/dL (2.7-4.5); Potassium 2.9 mmol/L (3.3-5.1); Sodium 143 mmol/L (135-145)
[2023-09-05] MEDS: Insulin Lispro 100 UNIT/ML 3 ML VIAL SUBCUT (06:33)
[2023-09-05] MEDS: Pantoprazole Sodium 40 MG/10 ML VIAL IVPUSH (06:34)
[2023-09-05] MEDS: Potassium Phosphate/NS 15 MMOL/250 ML PLAST..BAG 62.5 MMOL IV ×2 (06:36→10:52)
[2023-09-05 07:03] LABS: Venous Blood Gas Refer to POC result
[2023-09-05] MEDS: Albumin Human 25 % 100 ML IV ×2 (07:30→13:39)
[2023-09-05] MEDS: Chlorhexidine Gluc Oral Rinse 15 ML MOUTHWASH BUCCAL ×3 (09:04→20:02)
--- NOTE | 2023-09-05 09:30 | PM.CCPN ---
Subjective Subjective Date of Service: 09/05/23 Interval History: 62-year-old lady with underlying history of rheumatoid arthritis, hypertension, hypothyroidism admitted on 09/01/2023 with hypoxia. Upon arrival to ER patient noted to be cyanotic with no measurable blood pressure and O2 saturation in 70s. Patient was intubated with tanja intubation cardiac arrest with return of spontaneous circulation after 2 rounds of CPR. Patient admitted to the intensive care unit. Hospital course significant for profound hypoxemia and shock with ischemic hepatitis and ATN. No events overnight. Poor arousal with sedation vacation. Critical Care Time (minutes): 60 Physical Exam Vital Signs: Vital Signs: Last Vital Signs Temp 100.8 F H 09/05/23 09:00 Pulse 90 09/05/23 09:04 Resp 23 H 09/05/23 09:00 BP 140/83 H 09/05/23 09:04 Pulse Ox 93 09/05/23 09:00 O2 Del Method Mechanical Ventil ation 09/05/23 09:00 FiO2 40 09/05/23 09:00 BMI result Body Mass Index 36.7 Const: General: no acute distress and other (Poor arousal with sedation vacation) Nutritional Appearance: obese Eyes: Sclerae: sclerae normal EOM: EOMs intact bilaterally Neck: Neck: Yes no lymphadenopathy, Yes trachea midline and Yes supple Resp: Auscultation: clear to auscultation bilaterally Cardio: Rate: regular rate Rhythm: regular rhythm Heart sounds: no gallops, no murmurs and no rubs GI: Palpation (GI): Soft to palpation and Other GI palpation findings present ( Nontender) Auscultation: normal bowel sounds Extrem: General: Yes no pedal edema, No clubbing and No cyanosis Objective Data Labs 09/05/23 04:34 09/05/23 04:34 Labs: Laboratory Results - last 24 hr 09/04/23 09/04/23 09/04/23 11:35 17:41 23:52 WBC RBC Hgb Hct MCV MCH MCHC RDW Plt Count MPV Immature Gran % (Auto) Neut % (Auto) Lymph % (Auto) [place] % (Auto) Eos % (Auto) Baso % (Auto) Lymph # (Auto) [place] # (Auto) Eos # (Auto) Baso # (Auto) Abs Immat Gran (auto) Absolute Neuts (auto) Absolute Nucleated RBC Nucleated RBC % (auto) VBG pH VBG pCO2 VBG pO2 VBG HCO3 VBG O2 Saturation VBG Base Excess Sodium Potassium Chloride Carbon Dioxide Anion Gap BUN Creatinine Estim Creat Clear Calc Estimated GFR POC Glucose 130 H 149 H 145 H Random Glucose Calcium Phosphorus Magnesium Albumin 09/05/23 09/05/23 04:34 04:52 WBC 8.4 RBC 3.55 L Hgb 11.1 L Hct 34.4 L MCV 96.9 MCH 31.3 MCHC 32.3 RDW 15.2 Plt Count 122 L MPV 10.5 Immature Gran % (Auto) 0.6 H Neut % (Auto) 75.2 H Lymph % (Auto) 13.5 L [place] % (Auto) 8.0 Eos % (Auto) 1.9 Baso % (Auto) 0.8 Lymph # (Auto) 1.1 L [place] # (Auto) 0.7 Eos # (Auto) 0.2 Baso # (Auto) 0.1 Abs Immat Gran (auto) 0.05 H Absolute Neuts (auto) 6.3 Absolute Nucleated RBC 0.000 Nucleated RBC % (auto) 0.0 VBG pH 7.43 VBG pCO2 51 VBG pO2 73 VBG HCO3 34 H VBG O2 Saturation 94.0 VBG Base Excess 9.0 Sodium 143 Potassium 2.9 L* Chloride 103 Carbon Dioxide 30 H Anion Gap 13 BUN 21 H Creatinine 0.70 Estim Creat Clear Calc 100.0 Estimated GFR > 60 POC Glucose Random Glucose 156 H Calcium 8.7 Phosphorus 1.6 L Magnesium 1.7 Albumin 3.4 L Microbiology Microbiology Results: Microbiology 09/01/23 10:44 Blood - Venous Blood Culture - Final Enterococcus faecalis Coag negative Staphylococcus 09/01/23 11:57 Blood - Venous Blood Culture - Preliminary No growth after 48 hours. Progress Note: A&P Assessment and plan (1) Pulmonary aspiration: Status: Acute (2) Shock: Status: Acute (3) Ischemic hepatitis: Status: Acute (4) Cardiac arrest: Status: Acute (5) Acute kidney injury: Status: Acute (6) Acute hypoxic respiratory failure: Status: Acute (7) Rheumatoid arthritis: Status: Acute Plan Assessment: 62-year-old lady admitted after cardiac arrest, now on ventilatory support Plan: Neuro: Brief PEA/asystole arrest, also with significant hemodynamic instability, not a candidate for hypothermia. Poor arousal with sedation vacation. Will obtain brain MRI. Cardiac: Cardiac arrest, likely secondary to hypoxia. Return of spontaneous circulation after 2 rounds of CPR. 2D echo is essentially normal. Distributive shock, continue to titrate off pressors as tolerated. Pulmonary: Acute hypoxic respiratory failure likely secondary to pulmonary aspiration, intubated during the CPR. Continue to titrate off ventilatory support as tolerated. Renal: Acute kidney injury, likely secondary from hypoperfusion/ATN with cardiac arrest, improving. Non oliguric. Continue to monitor renal indices and urine output. Endo: No acute issues. GI: Ischemic hepatitis, secondary to cardiac arrest, improving. Continue to monitor liver function. ID: Pulmonary aspiration, empirically covered with broad-spectrum antibiotics. Heme/Onc: No acute issues. Psych: No acute issues. Miscellaneous: No acute issues. Prophylaxis: Heparin, ppi Diet: Tube feeds Critical care time spent: 60 minutes Quality Stroke Does the patient have a stroke diagnosis?: No VTE Prior VTE?: No VTE Risk Level:: Medical - moderate - high VTE Device Contraindication: N/A - Device Ordered VTE Drug Contraindication: N/A - Med Ordered
--- NOTE | 2023-09-05 09:55 | MHC.CLN ---
F/U PT REMAINS INTUBATED DISCUSSED AT ROUNDS WITH MD REVIEWED LABS PT RECEIVING PROMOTE AT MAX GOAL RATE 50ML/HR WITH 120ML FREE WATER FLUSHES Q 4 HRS PROVIDES 1200KCALS (21KCALS/KG BASED ON IBW), 75G PROTEIN (1.04G/KG BASED ON CMW), 1727 TOTAL ML FREE WATER FROM FORMULA AND FLUSHES (30ML/KG BASED ON IBW) MONITOR TOLERANCE, RESIDUALS AND LYTES
[2023-09-05 11:06] LABS: Glucose, Whole Blood 117 mg/dL (60-115)
[2023-09-05] MEDS: Midazolam HCl/PF 2 MG/2 ML VIAL IVPUSH (12:45)
[2023-09-05] MEDS: oxyCODONE HCl Immed Release 5 MG TABLET 10 MG PO (13:56)
--- NOTE | 2023-09-05 15:33 | HO.WOUND ---
Wound Consult: Initial 62yr old?F admitted to [facility] [place] on 09/01/23 - See progress notes and H&P for detailed history.? Wound consult placed for Sacral area.? Patient is intubated at the time of my assessment - she remains ICU level of care. Chart review reveals patient was found down - see chart for details. The patient has significant history see H&P for details. Right Knee Etiology: Deep Tissue Injury in Evolution -??Present on Admission Measurements: 6.5cm x 5cm Wound Bed: Intact loose epidermal layer - dark purple delvalle nonblanchable tissue - suspect eschar forming (can be normal course for significant DTI progression per NPIAP) Drainage / Odor: None Edges: ? Irregular Holli wound: ?red irregular maroon intact nonblanchable tissue, significant swelling noted Pain: Intubated Goals of Treatment: ? Xeroform and dressing to protect from trauma and allow for wound to declare itself Sacrococcygeal (Sacrum, Coccyx and Buttock) Etiology: Deep Tissue Injury in Evolution -??Present on Admission Wound Bed: Intact l dark purple nonblanchable tissue - Scattered area to right buttock noted for irregular dark nonblanchable tissue - sacrum and coccyx more uniform in color and nonblanchable Drainage / Odor: None Edges: ? Irregular Holli wound: ?red irregular maroon intact tissue Pain: Intubated Goals of Treatment: ? Barrier cream to protect from friction and moisture and off load pressure Recommendations: 1. Turn and Reposition every 2 hours and as needed for patient comfort.? Use pillows or wedges to support off loading positions. 2. Off Load all bony prominences with use of pillows and heel boots if needed.? Apply Preventative foams where needed. ? 3. Monitor for incontinence and moisture control, use barrier creams when needed for prevention and treatment. 4. Provide adequate and supplemental nutrition.? 5. Continue low air loss mattress. 6. When applicable maintain blood glucose levels per Providers order. 7. Right Knee - Gently cleanse with Ns moist gauze, pat dry. Apply single layer of xeroform cover with dry dressing or foam dressing. Change every other day. 8. Sacrococcygeal - Cleanse with ph balanced cleanser, pat dry. Apply Barrier cream twice a day and PRN after episodes of incontinence. Re-consult wound care Nurse for wound deterioration or wound changes.
[2023-09-05 17:32] LABS: Glucose, Whole Blood 100 mg/dL (60-115)
[2023-09-05 23:55] LABS: Glucose, Whole Blood 129 mg/dL (60-115)
[2023-09-06] VITALS (31 sets, daily range): BP systolic 87–130; BP diastolic 49–80; PULSE 69–96; RESP 14–49; TEMP 34.8–38.4; O2SAT 89–99; BMI 36.6
[2023-09-06] MEDS: Piperacillin Sodium/Tazobactam 3.375 GM in 0.9 % Sodium Chloride 50 ML IV ×4 (02:44→20:03)
[2023-09-06] MEDS: Heparin Sodium,Porcine 5,000 UNIT/ML VIAL 5000 UNIT SUBCUT (04:19)
[2023-09-06 04:54] LABS: MANUAL DIFF FLAG NO
[2023-09-06 04:55] LABS: Basophils Percent Auto 0.5 % (0-2); Eosinophils Absolute Auto 0.3 X10*3/uL (0.0-0.4); Eosinophils Percent Auto 4.9 % (0-4); Hematocrit 34.3 % (37.0-47.0); Hemoglobin 10.9 g/dl (12.0-16.0); Imm Gran Abs Auto 0.07 X10*3/uL (0.00-0.03); Imm Gran Pct Auto 1.2 % (0.0-0.4); Lymphocytes Absolute Auto 1.4 X10*3/uL (1.2-4.9); Lymphocytes Percent Auto 23.6 % (20-40); Mean Corpuscular HGB Conc 31.8 g/dl (31.0-35.0); Mean Corpuscular Hemoglobin 30.6 pg (27.0-33.0); Mean Corpuscular Volume 96.3 fL (80.0-98.0); Mean Platelet Volume 10.7 fL (9.4-12.3); Monocytes Absolute Auto 0.8 X10*3/uL (0.1-1.2); Monocytes Percent Auto 13.1 % (2-11); Neutrophils Absolute Auto 3.2 x10*3/uL (2.0-8.3); Neutrophils Percent Auto 56.7 % (45-73); Red Blood Count 3.56 X10*6/uL (4.20-5.50); Red Cell Distribution Width 15.3 % (11.0-16.0); White Blood Count 5.7 X10*3/uL (4.8-10.8)
[2023-09-06 04:56] LABS: Platelet Count 88 X10*3/uL (160-400)
[2023-09-06 04:59] LABS: VBG Base Excess 9.3 mmol/L; VBG HCO3 34 mmol/L (22-26); VBG pCO2 49 mmHg; VBG pH 7.45 (7.32-7.43); VBG pO2 46 mmHg
[2023-09-06 05:00] LABS: Venous Blood Gas Refer to POC result
[2023-09-06 05:11] LABS: Albumin Level 3.5 g/dL (3.5-5.0); Anion Gap 11 (12-20); Blood Urea Nitrogen 22 mg/dL (9-16); Calcium 8.7 mg/dL (8.4-10.2); Carbon Dioxide 31 mmol/L (22-29); Chloride 103 mmol/L (96-108); Creatinine Clr Calc Pharmacy 104.6; Estimated Glomerular Filt Rate > 60; Glucose Random 146 mg/dL (60-115); Magnesium 1.7 mg/dL (1.6-2.6); Potassium 3.3 mmol/L (3.3-5.1); Sodium 142 mmol/L (135-145)
[2023-09-06] MEDS: Pantoprazole Sodium 40 MG/10 ML VIAL IVPUSH (05:43)
[2023-09-06] MEDS: Potassium Phosphate/NS 15 MMOL/250 ML PLAST..BAG 62.5 MMOL IV ×2 (05:43→21:07)
[2023-09-06] MEDS: Chlorhexidine Gluc Oral Rinse 15 ML MOUTHWASH BUCCAL ×2 (07:51→21:07)
[2023-09-06] MEDS: Magnesium Sulfate/H2O 2 GM/50 ML PIGGYBACK IV (09:01)
--- NOTE | 2023-09-06 10:08 | MHC.CLN ---
F/U PT REMAINS INTUBATED DISCUSSED AT ROUNDS WITH MD REVIEWED LABS PT RECEIVING PROMOTE AT MAX GOAL RATE 50ML/HR WITH 120ML FREE WATER FLUSHES Q 4 HRS PROVIDES 1200KCALS (21KCALS/KG BASED ON IBW), 75G PROTEIN (1.04G/KG BASED ON CMW), 1727 TOTAL ML FREE WATER FROM FORMULA AND FLUSHES (30ML/KG BASED ON IBW) PT WITH NEW DTI PRESSURE INJURIES RECOMMEND ADDING 30ML PROSOURCE Q DAY TO PROVIDE 60KCALS, 15G PROTEIN MONITOR TOLERANCE, RESIDUALS AND LYTES
[2023-09-06 11:13] LABS: Glucose, Whole Blood 146 mg/dL (60-115)
--- NOTE | 2023-09-06 11:27 | PM.CCPN ---
Subjective Subjective Date of Service: 09/06/23 Interval History: 62-year-old lady with underlying history of rheumatoid arthritis, hypertension, hypothyroidism admitted on 09/01/2023 with hypoxia. Upon arrival to ER patient noted to be cyanotic with no measurable blood pressure and O2 saturation in 70s. Patient was intubated with tanja intubation cardiac arrest with return of spontaneous circulation after 2 rounds of CPR. Patient admitted to the intensive care unit. Hospital course significant for profound hypoxemia and shock with ischemic hepatitis and ATN. MRI without evidence of anoxic injury. No events overnight. Critical Care Time (minutes): 60 Physical Exam Vital Signs: Vital Signs: Last Vital Signs Temp 101.1 F H 09/06/23 11:00 Pulse 75 09/06/23 11:00 Resp 19 09/06/23 11:00 BP 110/63 09/06/23 11:00 Pulse Ox 90 L 09/06/23 11:00 O2 Del Method Mechanical Ventil ation 09/06/23 11:00 FiO2 40 09/06/23 11:17 BMI result Body Mass Index 36.6 Const: General: no acute distress and lethargic Orientation/consciousness: lethargic Eyes: Sclerae: sclerae normal EOM: EOMs intact bilaterally Neck: Neck: Yes no lymphadenopathy, Yes trachea midline and Yes supple Resp: Auscultation: crackles (Mild bilateral) Cardio: Rate: tachycardic Rhythm: regular rhythm Heart sounds: no gallops, no murmurs and no rubs GI: Palpation (GI): Soft to palpation and Other GI palpation findings present ( Nontender) Auscultation: normal bowel sounds Extrem: General: No clubbing, No cyanosis and Yes edema (Trace bilateral) Objective Data Labs 09/06/23 04:45 09/06/23 04:45 Labs: Laboratory Results - last 24 hr 09/05/23 09/05/23 09/06/23 17:28 23:50 04:45 WBC 5.7 RBC 3.56 L Hgb 10.9 L Hct 34.3 L MCV 96.3 MCH 30.6 MCHC 31.8 RDW 15.3 Plt Count 88 L D MPV 10.7 Immature Gran % (Auto) 1.2 H Neut % (Auto) 56.7 Lymph % (Auto) 23.6 [place] % (Auto) 13.1 H Eos % (Auto) 4.9 H Baso % (Auto) 0.5 Lymph # (Auto) 1.4 [place] # (Auto) 0.8 Eos # (Auto) 0.3 Baso # (Auto) 0.0 Abs Immat Gran (auto) 0.07 H Absolute Neuts (auto) 3.2 Absolute Nucleated RBC 0.000 Nucleated RBC % (auto) 0.0 VBG pH VBG pCO2 VBG pO2 VBG HCO3 VBG O2 Saturation VBG Base Excess Sodium 142 Potassium 3.3 Chloride 103 Carbon Dioxide 31 H Anion Gap 11 L BUN 22 H Creatinine 0.67 Estim Creat Clear Calc 104.6 Estimated GFR > 60 POC Glucose 100 129 H Random Glucose 146 H Calcium 8.7 Phosphorus 2.0 L Magnesium 1.7 Albumin 3.5 09/06/23 09/06/23 04:53 11:05 WBC RBC Hgb Hct MCV MCH MCHC RDW Plt Count MPV Immature Gran % (Auto) Neut % (Auto) Lymph % (Auto) [place] % (Auto) Eos % (Auto) Baso % (Auto) Lymph # (Auto) [place] # (Auto) Eos # (Auto) Baso # (Auto) Abs Immat Gran (auto) Absolute Neuts (auto) Absolute Nucleated RBC Nucleated RBC % (auto) VBG pH 7.45 H VBG pCO2 49 VBG pO2 46 VBG HCO3 34 H VBG O2 Saturation 73.0 VBG Base Excess 9.3 Sodium Potassium Chloride Carbon Dioxide Anion Gap BUN Creatinine Estim Creat Clear Calc Estimated GFR POC Glucose 146 H Random Glucose Calcium Phosphorus Magnesium Albumin Microbiology Microbiology Results: Microbiology 09/01/23 10:44 Blood - Venous Blood Culture - Final Enterococcus faecalis Coag negative Staphylococcus 09/01/23 11:57 Blood - Venous Blood Culture - Preliminary No growth after 48 hours. Progress Note: A&P Assessment and plan (1) Pulmonary aspiration: Status: Acute (2) Ischemic hepatitis: Status: Acute (3) Cardiac arrest: Status: Acute (4) Acute kidney injury: Status: Acute (5) Acute hypoxic respiratory failure: Status: Acute (6) Rheumatoid arthritis: Status: Acute Plan Assessment: 62-year-old lady admitted after cardiac arrest, now on ventilatory support Plan: Neuro: Brief PEA/asystole arrest, also with significant hemodynamic instability, not a candidate for hypothermia. Poor arousal with sedation vacation, though slowly improving. MRI brain without evidence of anoxic injury. Cardiac: Cardiac arrest, likely secondary to hypoxia. Return of spontaneous circulation after 2 rounds of CPR. 2D echo is essentially normal. Distributive shock, resolved. Pulmonary: Acute hypoxic respiratory failure likely secondary to pulmonary aspiration, intubated during the CPR. Continue to titrate off ventilatory support as tolerated. Renal: Acute kidney injury, likely secondary from hypoperfusion/ATN with cardiac arrest, improving. Non oliguric. Continue to monitor renal indices and urine output. Endo: No acute issues. GI: Ischemic hepatitis, secondary to cardiac arrest, improving. Continue to monitor liver function. ID: Pulmonary aspiration, empirically covered with broad-spectrum antibiotics. Heme/Onc: No acute issues. Psych: No acute issues. Miscellaneous: No acute issues. Prophylaxis: Heparin, ppi Diet: Tube feeds Critical care time spent: 60 minutes Quality Stroke Does the patient have a stroke diagnosis?: No VTE Prior VTE?: No VTE Risk Level:: Medical - moderate - high VTE Device Contraindication: N/A - Device Ordered VTE Drug Contraindication: N/A - Med Ordered
[2023-09-06] MEDS: oxyCODONE HCl Immed Release 5 MG TABLET 10 MG PO ×2 (12:01)
--- NOTE | 2023-09-06 14:23 | PC.NURSE ---
Assumed care at 0700. Patient off sedation since 09/03 0900. Patient awake, more active, moving all extremities, opening eyes w/ contact to name. Positive cough, weak gag, positive pain response - MD aware. 1135 PSV 10/5 40% started by RT - tolerating well. 1200 PSV 5/5 40% started by MD - tolerating well. 1245 Patient extubated per MD order to 15L Oxymask, sating 95%. 1345 O2 down to 80's - MD to bedside - trumpet placed and deep suctioning provided by MD - moderate amount of thick cream/blood streaked secretions. O2 sats maintaining mid 90's. Aspiration precautions in place.
--- NOTE | 2023-09-06 15:02 | MHC.CM.PN ---
Pt remains on ventilatory support but showing clinical signs of improvement: plans for the day include PSV trials and assessment of cognitive return. D/C planning needs ongoing.
[2023-09-06 17:34] LABS: Glucose, Whole Blood 85 mg/dL (60-115)
[2023-09-06] MEDS: fentaNYL citrate/PF 100 MCG/2 ML VIAL 25 MCG IVPUSH (19:06)
[2023-09-06 20:10] LABS: VBG HCO3 33 mmol/L (22-26); VBG pCO2 47 mmHg; VBG pH 7.46 (7.32-7.43); VBG pO2 52 mmHg
[2023-09-06 20:29] LABS: Venous Blood Gas Refer to POC result
[2023-09-06 20:39] LABS: Anion Gap 12 (12-20); Blood Urea Nitrogen 19 mg/dL (9-16); Calcium 8.4 mg/dL (8.4-10.2); Carbon Dioxide 31 mmol/L (22-29); Chloride 104 mmol/L (96-108); Creatinine Clr Calc Pharmacy 107.7; Estimated Glomerular Filt Rate > 60; Glucose Random 85 mg/dL (60-115); Magnesium 1.9 mg/dL (1.6-2.6); Phosphorus 2.5 mg/dL (2.7-4.5); Potassium 3.6 mmol/L (3.3-5.1); Sodium 143 mmol/L (135-145)
[2023-09-06] MEDS: Morphine Sulfate 2 MG/ML CARTRIDGE 0.5 MG IVPUSH (21:49)
[2023-09-06 23:47] LABS: Glucose, Whole Blood 74 mg/dL (60-115)
[2023-09-07] VITALS (19 sets, daily range): BP systolic 95–125; BP diastolic 48–80; PULSE 65–95; RESP 18–26; TEMP 36.2–38.2; O2SAT 79–98; BMI 36.8
[2023-09-07] MEDS: Dextrose 10 % 1,000 ML 50 ML IVCONT ×2 (00:07→19:29)
[2023-09-07] MEDS: Morphine Sulfate 2 MG/ML CARTRIDGE 0.5 MG IVPUSH (01:48)
[2023-09-07] MEDS: Piperacillin Sodium/Tazobactam 3.375 GM in 0.9 % Sodium Chloride 50 ML IV ×4 (01:49→20:41)
[2023-09-07 04:52] LABS: VBG Base Excess 8.3 mmol/L; VBG HCO3 34 mmol/L (22-26); VBG pCO2 53 mmHg; VBG pH 7.41 (7.32-7.43); VBG pO2 56 mmHg
[2023-09-07 05:02] LABS: MANUAL DIFF FLAG NO
[2023-09-07 05:06] LABS: Venous Blood Gas Refer to POC result
[2023-09-07 05:08] LABS: Basophils Absolute Auto 0.1 X10*3/uL (0.0-0.2); Basophils Percent Auto 0.8 % (0-2); Eosinophils Absolute Auto 0.4 X10*3/uL (0.0-0.4); Eosinophils Percent Auto 5.1 % (0-4); Hematocrit 34.2 % (37.0-47.0); Hemoglobin 10.9 g/dl (12.0-16.0); Imm Gran Abs Auto 0.09 X10*3/uL (0.00-0.03); Imm Gran Pct Auto 1.3 % (0.0-0.4); Lymphocytes Absolute Auto 1.3 X10*3/uL (1.2-4.9); Lymphocytes Percent Auto 17.7 % (20-40); Mean Corpuscular HGB Conc 31.9 g/dl (31.0-35.0); Mean Corpuscular Hemoglobin 31.4 pg (27.0-33.0); Mean Corpuscular Volume 98.6 fL (80.0-98.0); Mean Platelet Volume 10.9 fL (9.4-12.3); Monocytes Absolute Auto 0.9 X10*3/uL (0.1-1.2); Neutrophils Absolute Auto 4.5 x10*3/uL (2.0-8.3); Neutrophils Percent Auto 63.1 % (45-73); Platelet Count 115 X10*3/uL (160-400); Red Blood Count 3.47 X10*6/uL (4.20-5.50); Red Cell Distribution Width 15.2 % (11.0-16.0); White Blood Count 7.1 X10*3/uL (4.8-10.8)
[2023-09-07 05:24] LABS: Alanine Aminotransferase 88 U/L (0-31); Albumin Level 3.1 g/dL (3.5-5.0); Alkaline Phosphatase 91 U/L (39-117); Anion Gap 11 (12-20); Aspartate Amino Transferase 38 U/L (5-31); Bilirubin Total 1.4 mg/dL (0.0-1.0); Blood Urea Nitrogen 17 mg/dL (9-16); Calcium 8.3 mg/dL (8.4-10.2); Carbon Dioxide 30 mmol/L (22-29); Chloride 105 mmol/L (96-108); Creatinine Clr Calc Pharmacy 111.1; Estimated Glomerular Filt Rate > 60; Glucose Random 117 mg/dL (60-115); Magnesium 1.8 mg/dL (1.6-2.6); Phosphorus 2.6 mg/dL (2.7-4.5); Potassium 3.5 mmol/L (3.3-5.1); Sodium 142 mmol/L (135-145); Total Protein 6.1 g/dL (6.5-8.0)
[2023-09-07] MEDS: Albumin Human 25 % 50 ML 100 ML IV ×2 (05:52→07:51)
[2023-09-07] MEDS: Potassium Phosphate/NS 15 MMOL/250 ML PLAST..BAG 62.5 MMOL IV (05:54)
[2023-09-07] MEDS: Chlorhexidine Gluc Oral Rinse 15 ML MOUTHWASH BUCCAL (07:42)
--- NOTE | 2023-09-07 09:21 | P.PNCC_ITS ---
Subjective Subjective Date of Service: 09/07/23 Interval History: 62-year-old lady with underlying history of rheumatoid arthritis, hypertension, hypothyroidism admitted on 09/01/2023 with hypoxia. Upon arrival to ER patient noted to be cyanotic with no measurable blood pressure and O2 saturation in 70s. Patient was intubated with tanja intubation cardiac arrest with return of spontaneous circulation after 2 rounds of CPR. Patient admitted to the intensive care unit. Hospital course significant for profound hypoxemia and shock with ischemic hepatitis and ATN. MRI without evidence of anoxic injury. Extubated 09/06/2023. Encephalopathy is slowly improving. No events overnight. Critical Care Time (minutes): 0 Physical Exam 2 Vital Signs: Vital Signs: Last Vital Signs Temp 99.3 F 09/07/23 09:00 Pulse 72 09/07/23 09:00 Resp 20 09/07/23 09:00 BP 117/70 09/07/23 09:00 Pulse Ox 96 09/07/23 09:00 O2 Del Method Oxymask 09/07/23 09:00 O2 Flow Rate 10 09/07/23 09:00 FiO2 40 09/06/23 12:56 BMI result Body Mass Index 36.8 Const: General: no acute distress and lethargic (Arousable, answers simple questions) Nutritional Appearance: obese Orientation/consciousness: l ethargic (Arousable, answers simple questions) Eyes: Sclerae: sclerae normal EOM: EOMs intact bilaterally Neck: Neck: Yes no lymphadenopathy, Yes trachea midline and Yes supple Resp: Effort & Inspection: normal respiratory effort and no respiratory distress Auscultation: clear to auscultation bilaterally Cardio: Rate: regular rate Rhythm: regular rhythm Heart sounds: no gallops, no murmurs and no rubs GI: Palpation (GI): Soft to palpation and Other GI palpation findings present ( Nontender) Auscultation: normal bowel sounds Extrem: General: Yes no pedal edema, No clubbing and No cyanosis Objective Data Labs 09/07/23 04:47 09/07/23 04:47 Labs: Laboratory Results - last 24 hr 09/06/23 09/06/23 09/06/23 11:05 17:27 20:02 WBC RBC Hgb Hct MCV MCH MCHC RDW Plt Count MPV Immature Gran % (Auto) Neut % (Auto) Lymph % (Auto) [place] % (Auto) Eos % (Auto) Baso % (Auto) Lymph # (Auto) [place] # (Auto) Eos # (Auto) Baso # (Auto) Abs Immat Gran (auto) Absolute Neuts (auto) Absolute Nucleated RBC Nucleated RBC % (auto) VBG pH 7.46 H VBG pCO2 47 VBG pO2 52 VBG HCO3 33 H VBG O2 Saturation 84.0 VBG Base Excess 9.0 Sodium Potassium Chloride Carbon Dioxide Anion Gap BUN Creatinine Estim Creat Clear Calc Estimated GFR POC Glucose 146 H 85 Random Glucose Calcium Phosphorus Magnesium Total Bilirubin AST ALT Alkaline Phosphatase Total Protein Albumin 09/06/23 09/06/23 09/07/23 20:04 23:39 04:44 WBC RBC Hgb Hct MCV MCH MCHC RDW Plt Count MPV Immature Gran % (Auto) Neut % (Auto) Lymph % (Auto) [place] % (Auto) Eos % (Auto) Baso % (Auto) Lymph # (Auto) [place] # (Auto) Eos # (Auto) Baso # (Auto) Abs Immat Gran (auto) Absolute Neuts (auto) Absolute Nucleated RBC Nucleated RBC % (auto) VBG pH 7.41 VBG pCO2 53 VBG pO2 56 VBG HCO3 34 H VBG O2 Saturation 87.0 VBG Base Excess 8.3 Sodium 143 Potassium 3.6 Chloride 104 Carbon Dioxide 31 H Anion Gap 12 BUN 19 H Creatinine 0.65 Estim Creat Clear Calc 107.7 Estimated GFR > 60 POC Glucose 74 Random Glucose 85 Calcium 8.4 Phosphorus 2.5 L Magnesium 1.9 Total Bilirubin AST ALT Alkaline Phosphatase Total Protein Albumin 09/07/23 04:47 WBC 7.1 RBC 3.47 L Hgb 10.9 L Hct 34.2 L MCV 98.6 H MCH 31.4 MCHC 31.9 RDW 15.2 Plt Count 115 L D MPV 10.9 Immature Gran % (Auto) 1.3 H Neut % (Auto) 63.1 Lymph % (Auto) 17.7 L [place] % (Auto) 12.0 H Eos % (Auto) 5.1 H Baso % (Auto) 0.8 Lymph # (Auto) 1.3 [place] # (Auto) 0.9 Eos # (Auto) 0.4 Baso # (Auto) 0.1 Abs Immat Gran (auto) 0.09 H Absolute Neuts (auto) 4.5 Absolute Nucleated RBC 0.000 Nucleated RBC % (auto) 0.0 VBG pH VBG pCO2 VBG pO2 VBG HCO3 VBG O2 Saturation VBG Base Excess Sodium 142 Potassium 3.5 Chloride 105 Carbon Dioxide 30 H Anion Gap 11 L BUN 17 H Creatinine 0.63 Estim Creat Clear Calc 111.1 Estimated GFR > 60 POC Glucose Random Glucose 117 H Calcium 8.3 L Phosphorus 2.6 L Magnesium 1.8 Total Bilirubin 1.4 H AST 38 H ALT 88 H Alkaline Phosphatase 91 Total Protein 6.1 L Albumin 3.1 L Microbiology Microbiology Results: Microbiology 09/01/23 11:57 Blood - Venous Blood Culture - Final No growth after 5 days. 09/01/23 10:44 Blood - Venous Blood Culture - Final Enterococcus faecalis Coag negative Staphylococcus Progress Note: A&P Assessment and plan (1) Cardiac arrest: Status: Acute (2) Acute hypoxic respiratory failure: Status: Acute (3) Pulmonary aspiration: Status: Acute (4) Rheumatoid arthritis: Status: Acute Plan Assessment: 62-year-old lady admitted after cardiac arrest, now on ventilatory support Plan: Neuro: Brief PEA/asystole arrest, also with significant hemodynamic instability, not a candidate for hypothermia. Poor arousal with sedation vacation, though slowly improving. MRI brain without evidence of anoxic injury. Encephalopathy slowly improving. Cardiac: Cardiac arrest, likely secondary to hypoxia. Return of spontaneous circulation after 2 rounds of CPR. 2D echo is essentially normal. Distributive shock, resolved. Pulmonary: Acute hypoxic respiratory failure likely secondary to pulmonary aspiration, intubated during the CPR. Extubated on 09/06/2023. Continue to titrate off supplemental oxygen as tolerated. Renal: Acute kidney injury, likely secondary from hypoperfusion/ATN with cardiac arrest, improving. Non oliguric. Continue to monitor renal indices and urine output. Endo: No acute issues. GI: Ischemic hepatitis, secondary to cardiac arrest, improving. Continue to monitor liver function. ID: Pulmonary aspiration, empirically covered with broad-spectrum antibiotics. Heme/Onc: No acute issues. Psych: No acute issues. Miscellaneous: No acute issues. Prophylaxis: Heparin Diet: Pending swallow evaluation Quality Stroke Does the patient have a stroke diagnosis?: No VTE Prior VTE?: No VTE Risk Level:: Medical - moderate - high VTE Device Contraindication: N/A - Device Ordered VTE Drug Contraindication: N/A - Med Ordered
[2023-09-07] MEDS: Albumin Human 25 % 100 ML IV ×2 (11:46→19:34)
[2023-09-07] MEDS: Sodium Phosphate,Mono-Dibasic 133 ML ENEMA PR (12:02)
[2023-09-07 12:13] LABS: Glucose, Whole Blood 137 mg/dL (60-115)
--- NOTE | 2023-09-07 14:16 | PM.EVENT ---
Event Note Date of Service: 09/08/23 Event Note: Pt seen and examined and hospital course reviewed and discussed with intensivity. A 62-year-old female, obese, with rheumatoid arthritis on methotrexate (MTX), hypertension, and hypothyroidism, has been in the ICU since 08/31. She was brought to the emergency department in an unresponsive state, hypoxic/cyanotic, with an undetectable blood pressure and oxygen saturation in the 70s. She experienced cardiac arrest during the intubation process but regained return of spontaneous circulation (ROSC) following 2 rounds of CPR. The patient's ICU course has been complicated by hypovelemic shock, shocked liver, and acute tubular necrosis (ATN) due to renal hypoperfusion from profound hypotension. Although clinically she may have had anoxic encephalopathy, this has not been demonstrated on MRI. She was successfully extubated on 09/05 and maintains oxygen saturation, breathing comfortably on her own. She has been on Zosyn since 08/31 for suspected aspiration pneumonia. She remains fairly confused, although able to answer yes/no questions. She is NPO and will require a formal swallow evaluation before feeding. Time Spent With Patient Time: Total time managing care of this patient today ____ minutes.
[2023-09-07] MEDS: Pantoprazole Sodium 40 MG/10 ML VIAL IVPUSH (14:56)
--- NOTE | 2023-09-07 17:31 | PC.NURSE ---
assumed care of patient @ 17:30.
[2023-09-07 17:55] LABS: Glucose, Whole Blood 114 mg/dL (60-115)
[2023-09-07 20:48] LABS: Glucose, Whole Blood 101 mg/dL (60-115)
--- NOTE | 2023-09-07 23:47 | PC.NURSE ---
Assumed care of patient at 19:00. Pt is Romansh speaking. Reference Archivist was used at bedside. Pt remains confused, A&Ox1-2 self and occasionally vaguely to place. Reoriented. Per handoff report received, pt's khan was removed earlier today in ICU, with pt due to void at 19:30 this evening. Pt bladder scanned at 20:[address] Ann notified with written order to reassess in four to six hrs (midnight-0200). No pelvic discomfort noted on palpation. Please see shift assessment, tasks, and MAR for full details. Oncoming RN made aware. Handoff report given at 23:15.
[2023-09-08] VITALS (9 sets, daily range): BP systolic 120–147; BP diastolic 60–83; PULSE 72–92; RESP 17–40; TEMP 36.2–36.9; O2SAT 93–96; BMI 39.5
[2023-09-08] MEDS: Albumin Human 25 % 100 ML IV (01:06)
[2023-09-08] MEDS: Piperacillin Sodium/Tazobactam 3.375 GM in 0.9 % Sodium Chloride 50 ML IV ×4 (02:35→19:42)
[2023-09-08 03:09] LABS: Glucose, Whole Blood 117 mg/dL (60-115)
[2023-09-08] MEDS: Pantoprazole Sodium 40 MG/10 ML VIAL IVPUSH (06:33)
[2023-09-08 07:08] LABS: MANUAL DIFF FLAG NO
[2023-09-08 07:16] LABS: Basophils Percent Auto 0.3 % (0-2); Eosinophils Absolute Auto 0.3 X10*3/uL (0.0-0.4); Eosinophils Percent Auto 4.6 % (0-4); Hematocrit 34.6 % (37.0-47.0); Hemoglobin 10.9 g/dl (12.0-16.0); Imm Gran Abs Auto 0.05 X10*3/uL (0.00-0.03); Imm Gran Pct Auto 0.7 % (0.0-0.4); Lymphocytes Percent Auto 13.8 % (20-40); Mean Corpuscular HGB Conc 31.5 g/dl (31.0-35.0); Mean Corpuscular Hemoglobin 30.7 pg (27.0-33.0); Mean Corpuscular Volume 97.5 fL (80.0-98.0); Mean Platelet Volume 10.5 fL (9.4-12.3); Monocytes Absolute Auto 0.7 X10*3/uL (0.1-1.2); Neutrophils Absolute Auto 5.2 x10*3/uL (2.0-8.3); Neutrophils Percent Auto 71.6 % (45-73); Platelet Count 147 X10*3/uL (160-400); Red Blood Count 3.55 X10*6/uL (4.20-5.50); Red Cell Distribution Width 14.9 % (11.0-16.0); White Blood Count 7.2 X10*3/uL (4.8-10.8)
[2023-09-08 07:22] LABS: VBG Base Excess 13.9 mmol/L; VBG HCO3 40 mmol/L (22-26); VBG pCO2 59 mmHg; VBG pH 7.44 (7.32-7.43); VBG pO2 88 mmHg
[2023-09-08 07:38] LABS: Venous Blood Gas Refer to POC result
[2023-09-08 08:59] LABS: Glucose, Whole Blood 120 mg/dL (60-115)
--- NOTE | 2023-09-08 09:41 | P.PNIM_ITS ---
Subjective Subjective Date of Service: 09/09/23 Interval History: f/u on cardiac arest, anoxic encephalopathy, hypovelemic shock, asp pneumoni, hypoglycemia s/p intubation, presently confused, maintaining airway, Physical Exam 2 Vital Signs: Vital Signs: Last Vital Signs Temp 97.4 F 09/08/23 07:23 Pulse 72 09/08/23 07:23 Resp 17 09/08/23 07:23 BP 120/65 09/08/23 07:23 Pulse Ox 94 09/08/23 07:23 O2 Del Method Oxymask 09/08/23 07:23 O2 Flow Rate 5 09/08/23 07:23 FiO2 40 09/06/23 12:56 BMI result Body Mass Index 39.5 General: Awake and alert, no distress, no acute distress Resp: diminished bilaeraly, normal respiatory effort CVS: S1,S2,RRR GI: +BS, NT, no distention Skin: No rash Neuro: motor grossly intact Psych: appropriate affect Objective Data Active Medications Dextrose (Dextrose 50 % 25 Gm/50 Ml Syringe) 25 gm IVPUSH Q15M PRN; Protocol PRN Reason: per Hypoglycemia Standing Ord. Glucose (Glucose Gel 15 Gm Gel..Gram.) 15 gm PO Q15M PRN; Protocol PRN Reason: per Hypoglycemia Standing Ord. Piperacillin Sod/Tazobactam (Sod 3.375 gm/ Sodium Chloride) 50 mls @ 100 mls/hr IV Q6H [facility] Last Infusion: 09/08/23 08:51 Dose: Infused Documented By: ABDOULAYE Dextrose (D10) 1,000 mls @ 50 mls/hr IVCONT .Q20H [facility] Last Admin: 09/07/23 19:29 Dose: 50 mls/hr Documented By: ESTEBAN Insulin Human Lispro (Insulin Lispro 100 Unit/Ml 3 Ml Vial) 0 unit SUBCUT Q6H [facility]; Protocol Last Admin: 09/08/23 04:24 Dose: Not Given Documented By: VANESA Non-Admin Reason: No Insulin Coverage Comments: POC 117 Morphine Sulfate (Morphine Sulfate 2 Mg/Ml Cartridge) 0.5 mg IVPUSH Q4H PRN; Protocol PRN Reason: Pain, Severe (Pain Scale 7-10) Last Admin: 09/07/23 01:48 Dose: 0.5 mg Documented By: EVA Pantoprazole Sodium (Pantoprazole Sodium 40 Mg/10 Ml Vial) 40 mg IVPUSH DAILY@0630 [facility] Last Admin: 09/08/23 06:33 Dose: 40 mg Documented By: VANESA Sodium Biphosphate/Sodium Phosphate (Sodium Phosphate,[place]-Dibasic 133 Ml Enema) 133 ml GA ONCE PRN PRN Reason: Constipation Last Admin: 09/07/23 12:02 Dose: 133 ml Documented By: MADHUIH Labs 09/08/23 06:53 09/08/23 06:53 Labs: Laboratory Results - last 24 hr 09/07/23 09/07/23 09/07/23 12:02 17:51 20:32 MCV MCH MCHC RDW Plt Count MPV Immature Gran % (Auto) Neut % (Auto) Lymph % (Auto) [place] % (Auto) Eos % (Auto) Baso % (Auto) Lymph # (Auto) [place] # (Auto) Eos # (Auto) Baso # (Auto) Abs Immat Gran (auto) Absolute Neuts (auto) Absolute Nucleated RBC Nucleated RBC % (auto) VBG pH VBG pCO2 VBG pO2 VBG HCO3 VBG O2 Saturation VBG Base Excess POC Glucose 137 H 114 101 09/08/23 09/08/23 09/08/23 03:02 06:53 07:06 MCV 97.5 MCH 30.7 MCHC 31.5 RDW 14.9 Plt Count 147 L D MPV 10.5 Immature Gran % (Auto) 0.7 H Neut % (Auto) 71.6 Lymph % (Auto) 13.8 L [place] % (Auto) 9.0 Eos % (Auto) 4.6 H Baso % (Auto) 0.3 Lymph # (Auto) 1.0 L [place] # (Auto) 0.7 Eos # (Auto) 0.3 Baso # (Auto) 0.0 Abs Immat Gran (auto) 0.05 H Absolute Neuts (auto) 5.2 Absolute Nucleated RBC 0.000 Nucleated RBC % (auto) 0.0 VBG pH 7.44 H VBG pCO2 59 VBG pO2 88 VBG HCO3 40 H VBG O2 Saturation 99.0 VBG Base Excess 13.9 POC Glucose 117 H 09/08/23 08:54 MCV MCH MCHC RDW Plt Count MPV Immature Gran % (Auto) Neut % (Auto) Lymph % (Auto) [place] % (Auto) Eos % (Auto) Baso % (Auto) Lymph # (Auto) [place] # (Auto) Eos # (Auto) Baso # (Auto) Abs Immat Gran (auto) Absolute Neuts (auto) Absolute Nucleated RBC Nucleated RBC % (auto) VBG pH VBG pCO2 VBG pO2 VBG HCO3 VBG O2 Saturation VBG Base Excess POC Glucose 120 H Assessment and Plan (1) Pulmonary aspiration: Status: Acute (2) Shock: Status: Acute (3) Ischemic hepatitis: Status: Acute (4) Cardiac arrest: Status: Acute (5) Septic shock: Status: Acute Plan A 62-year-old female, obese, with rheumatoid arthritis on methotrexate (MTX), hypertension, and hypothyroidism, has been in the ICU since 08/31. She was brought to the emergency department in an unresponsive state, hypoxic/cyanotic, with an undetectable blood pressure and oxygen saturation in the 70s. She experienced cardiac arrest during the intubation process but regained return of spontaneous circulation (ROSC) following 2 rounds of CPR. The patient's ICU course has been complicated by hypovelemic shock, shocked liver, and acute tubular necrosis (ATN) due to renal hypoperfusion from profound hypotension. Although clinically she may have had anoxic encephalopathy, this has not been demonstrated on MRI. She was successfully extubated on 09/05 and maintains oxygen saturation, breathing comfortably on her own. She has been on Zosyn since 08/31 for suspected aspiration pneumonia. She remains fairly confused, although able to answer yes/no questions. She is NPO and will require a formal swallow evaluation before feeding. Cardiac arrest d/t hypoxia--ROSC after 2 rounds of CPR Acute hypoxic respiratory failure--suspected d/t aspiration, intubated from 08/31 to and overall getting better, still on Oxygen which titrated down as maria with goal of 92% Aspiration pneumonia--Zosyn since 08/31, once able to eat, will change to PO Augmentin for 7 to 10 days Enterococcus bacteremia from 08/31 culture--continue Zosyn and when eating then Augment Hypovolemia shock not ATN--d/t Hypovolemia/shock--resolved, Creatine back to baseline Anoxic encephalopathy-- not demonstrated on MRI, but clinically and expected to improve Dysphagia--Swallow eval by speech before eating Hypoglycemia ? d/t not eating, .. continue D10 and cover with insulin as needed RA--once able to take by mouth, restart Methotraxate and Prednisone Acute hepatitis d/t shocked liver--LFTs trending down Obesity--should work on weight loss DVT prophylaxis--Restart Heparin Full Code PT and OT eval tomorrow Quality Stroke Does the patient have a stroke diagnosis?: No VTE Prior VTE?: No VTE Risk Level:: Medical - moderate - high VTE Device Contraindication: N/A - Device Ordered VTE Drug Contraindication: N/A - Med Ordered
[2023-09-08] MEDS: Heparin Sodium,Porcine 5,000 UNIT/ML VIAL 5000 UNIT SUBCUT ×2 (12:16→18:37)
[2023-09-08 12:21] LABS: Albumin Level 3.7 g/dL (3.5-5.0); Anion Gap 13 (12-20); Blood Urea Nitrogen 13 mg/dL (9-16); Calcium 8.6 mg/dL (8.4-10.2); Carbon Dioxide 29 mmol/L (22-29); Chloride 103 mmol/L (96-108); Creatinine Clr Calc Pharmacy 137.7; Estimated Glomerular Filt Rate > 60; Glucose Random 122 mg/dL (60-115); Magnesium 1.7 mg/dL (1.6-2.6); Phosphorus 1.7 mg/dL (2.7-4.5); Potassium 3.6 mmol/L (3.3-5.1); Sodium 141 mmol/L (135-145)
--- NOTE | 2023-09-08 12:35 | MHC.SL.SWA ---
Speech Pathologist Impression: Risk of Aspiration Due to: Medically Fragile Dysphasia Diet Status: Liquid Consistency and Strategies for Safe Swallow: Liquid Intake Recommendation: Thin Liquid Intake Strategies: Unrestricted Solid Food Consistency: Dietary Recommendations: Regular Additional Modifications to Solid Foods: Patient's primary issue will be positioning adequately for consumption of food and liquid. Lowering the foot of the bed while raising the head of the bed will likely be best strategy. Head of bed, at a minimum should be at 70 degrees. DO NOT feed, provide liquids, provide medications if patient is reclined. Due to high level of confusion, positioning issues, patient will require supervision at all meals. Oral Medication Intake: Whole with Liquid Please contact the pharmacy regarding appropriate crushable or liquid drug formulations that are available whenever modified delivery is recommended. Compensatory Strategies and Precautions to be Taken for Safe Swallow: Sitting Upright (90 deg) Liquids from Cup Liquids from Straw Supervision While Eating and Drinking for Safe Swallow: Total Supervision (1:1) Foods to Avoid: Swallowing Recommended Treatments: Recommendation for Speech: Comment: Patient presents with all aspects of oral motor function and swallowing WFL. However, patient is at risk for aspiration if not well positioned for any consumption of food or liquid, and patient is difficulty to position due to severe lower extremity contractures. Staff will need to strategize to position this patient well, and would benefit from a PT consult to assist with this need. Due to patient's level of confusion and need for careful positioning, full supervision is recommended at meals. Head of bed should be positioned at at least 70 degrees for all consumption of food, liquid, medication. WERNER TIMMONS notified of recommendation by secure concetta, RN in person. White board in room annotated with recommendations. Frequency/Duration: Date Range for Service Req: Timeline to reassess: Slag Worker Clinican/Clinical Fellow: No Supervisory Statement: I have reviewed and agree with the student/clinical fellow's documentation: N/A Speech Language Pathologist: Awa Mota M.A., CCC-SATELLITE DISH REPAIRER
[2023-09-08 15:14] LABS: Glucose, Whole Blood 143 mg/dL (60-115)
[2023-09-08] MEDS: Dextrose 10 % 1,000 ML 50 ML IVCONT (16:03)
[2023-09-08] MEDS: Morphine Sulfate 2 MG/ML CARTRIDGE 0.5 MG IVPUSH (20:35)
[2023-09-08 20:39] LABS: Glucose, Whole Blood 114 mg/dL (60-115)
[2023-09-09] VITALS (16 sets, daily range): BP systolic 108–144; BP diastolic 55–80; PULSE 80–103; RESP 19–44; TEMP 36.3–37; O2SAT 90–97; BMI 39.7
[2023-09-09 00:23] LABS: VBG Base Excess 13.8 mmol/L; VBG HCO3 36 mmol/L (22-26); VBG pCO2 39 mmHg; VBG pH 7.57 (7.32-7.43); VBG pO2 86 mmHg
[2023-09-09 00:24] LABS: Venous Blood Gas Refer to POC result
[2023-09-09] MEDS: Morphine Sulfate 2 MG/ML CARTRIDGE IVPUSH (00:51)
[2023-09-09] MEDS: LORazepam 2 MG/ML VIAL 0.5 MG IVPUSH (00:52)
[2023-09-09] MEDS: Heparin Sodium,Porcine 5,000 UNIT/ML VIAL 5000 UNIT SUBCUT ×3 (00:53→17:01)
[2023-09-09] MEDS: Piperacillin Sodium/Tazobactam 3.375 GM in 0.9 % Sodium Chloride 50 ML IV ×4 (01:00→19:35)
--- NOTE | 2023-09-09 03:11 | P.EN_ITS ---
Event Note Date of Service: 09/09/23 Event Note: I was notified by the nurse that the patient is tachypneic breathing almost 40 times a minute. Obtained blood gas and chest x-ray. Bilateral crackles upon examination. Chest x-ray with multifocal airspace opacities, ?pulm edema vs aspiration. Will order IV lasix 40mg. Discussed with renewable energy technician, Dr anthony. Time Spent With Patient Time: Total time managing care of this patient today ____ minutes.
[2023-09-09 03:17] LABS: Glucose, Whole Blood 110 mg/dL (60-115)
[2023-09-09] MEDS: Furosemide 40 MG/4 ML VIAL IVPUSH ×2 (03:35→16:04)
--- NOTE | 2023-09-09 03:40 | PM.EVENT ---
Documented by User: Jj Lindsay NP 09/09/23 04:32 Event Note Date of Service: 09/09/23 Event Note: The patient is a 62-year-old female with underlying history of rheumatoid arthritis, hypertension, hypothyroidism admitted on 09/01/2023 with hypoxia.? Upon arrival to ER patient noted to be cyanotic with no measurable blood pressure and O2 saturation in 70s.? Patient was intubated with tanja intubation cardiac arrest with return of spontaneous circulation after 2 rounds of CPR.? Patient admitted to the intensive care unit from 09/01/23 to 09/07/23. Extubated 09/06/23.? Hospital course significant for profound hypoxemia and shock with ischemic hepatitis and ATN.? transferred to the medical floor on 09/07/2023.? ? Tonight the patient? significant tachypneic to 40s.? On my assessment patient is tachypneic,?satting? 94-96% on OxyMask 5 L,? which she has been since extubation.? Afebrile.? Blood pressure and pulse stable.? Blood gas is stable. Patient is lethargic, but able to answer simple questions? appropriately. lungs with? rhonchi throughout.? Patient fluid balance noted to be? 14 L positive since admission to the hospital,? and 1.6 L positive in the last 24 hours.? Chest x-ray does show significant pulmonary edema,? and possible new aspiration.? ? Patient is being treated with Zosyn,? no signs of severe infection at this time as patient is afebrile and vitals are stable. ? Will advise to give Lasix for pulmonary edema.? ?Please contact the ICU if patient?s condition does not improve or worsen Time Spent With Patient Time: Total time managing care of this patient today ____ minutes. Documented by User: Usman Willett MD 09/09/23 09:10 Event Note Date of Service: 09/09/23
[2023-09-09 04:16] LABS: B Type Natriuretic Peptide 251 pg/mL (<100)
[2023-09-09] MEDS: Pantoprazole Sodium 40 MG/10 ML VIAL IVPUSH (06:42)
--- NOTE | 2023-09-09 06:56 | PC.NURSE ---
Pt is Vietnamese speaking only. Assistant Project Engineer used at bedside. Pt is drowsy but alerts to entering the room and voice overnight. Responds to her name and vaguely knows she is in the hospital, but cannot state where. Pt states she thinks it is May 2 . Difficult to reorient and redirect; does not appropriately answer assessment questions, instead pt rambles and goes on tangents of random, unrelated topics. Appears delirious. VSS with even and unlabored breathing in the evening. SR 80?s-90?s on tele. No apparent distress.?? 23:00 hour patient was observed with diaphragmatic breathing and was tachypneic with RR in the low 40's. Spo2 maintained mid 90?s on 5L oxymask which patient has been on since prior to assuming care. Lungs course on auscultation. Pt afebrile. Covering Dr. Ann notified. VBG and CXR obtained. Pt given 2mg morphine IVP as well as ativan IVP per MD order, with some effectiveness in tachypnea. Continuous spo2 monitoring in place for close monitoring. On reassessment rounding RR assessed with RR upper 20?s. MD notified and to bedside. ICU consulted by MD and to bedside. Lasix given for pulmonary edema as ordered with some improvement, RR 28-32 post-administration. Khan catheter placed at 03:30 per MD order for fluid management; pt requires accurate I+Os to assess diuresis/ fluid volume status with lasix. Pt incontinent just prior to khan placement, only 50ml UOP in catheter bag on placement. BNP ordered back 251. MD notified. 1000ml UOP in khan s/p lasix. Respiratory status with some improvement, RR in the upper 20?s. Dr. Ann updated.
[2023-09-09 09:00] LABS: Glucose, Whole Blood 138 mg/dL (60-115)
[2023-09-09 09:35] LABS: ABG Base Excess 12.1 mmol/L; ABG HCO3 37 mmol/L (22-26); ABG pCO2 52 mmHg (32-45); ABG pH 7.46 (7.35-7.45); ABG pO2 83 mmHg (83-108)
--- NOTE | 2023-09-09 09:44 | HO.PM.IMPN ---
Subjective Subjective Date of Service: 09/09/23 Interval History: Pt was tachypeic overnight, CXR showing multifocal infiltrate, VBG showed elevated ph. She was given IV lasix for large + fluid blance, BNP 251 which is essentially unchanged. This morning, she continues to tachypeic breathing around 35 and shallow.. 7./83 on 5 liters of oxy mask sating 95% Physical Exam Vital Signs: Vital Signs: Last Vital Signs Temp 98.5 F 09/09/23 07:25 Pulse 99 09/09/23 07:25 Resp 32 H 09/09/23 09:41 BP 128/67 09/09/23 07:25 Pulse Ox 94 09/09/23 07:25 O2 Del Method Oxymask 09/09/23 07:25 O2 Flow Rate 5 09/09/23 07:25 FiO2 40 09/06/23 12:56 BMI result Body Mass Index 39.7 General: Somnolent, but easily aroused, confused, has been her baseline since admission Resp: shallow breathing, dimished breath sounds, some rales at the bases CVS: S1,S2,RRR GI: +BS, NT, no distention Skin: No rash Neuro: motor grossly intact Psych: appropriate affect Objective Data Active Medications Dextrose (Dextrose 50 % 25 Gm/50 Ml Syringe) 25 gm IVPUSH Q15M PRN; Protocol PRN Reason: per Hypoglycemia Standing Ord. Glucose (Glucose Gel 15 Gm Gel..Gram.) 15 gm PO Q15M PRN; Protocol PRN Reason: per Hypoglycemia Standing Ord. Heparin Sodium (Porcine) (Heparin Sodium,Porcine 5,000 Unit/Ml Vial) 5,000 unit SUBCUT Q8H [facility] Last Admin: 09/09/23 09:15 Dose: 5,000 unit Documented By: MELODY Piperacillin Sod/Tazobactam (Sod 3.375 gm/ Sodium Chloride) 50 mls @ 100 mls/hr IV Q6H [facility] Last Admin: 09/09/23 09:14 Dose: 100 mls/hr Documented By: MELODY Insulin Human Lispro (Insulin Lispro 100 Unit/Ml 3 Ml Vial) 0 unit SUBCUT Q6H [facility]; Protocol Last Admin: 09/09/23 09:11 Dose: Not Given Documented By: MELODY Non-Admin Reason: No Insulin Coverage Morphine Sulfate (Morphine Sulfate 2 Mg/Ml Cartridge) 0.5 mg IVPUSH Q4H PRN; Protocol PRN Reason: Pain, Severe (Pain Scale 7-10) Last Admin: 09/08/23 20:35 Dose: 0.5 mg Documented By: ESTEBAN Pantoprazole Sodium (Pantoprazole Sodium 40 Mg/10 Ml Vial) 40 mg IVPUSH DAILY@0630 [facility] Last Admin: 09/09/23 06:42 Dose: 40 mg Documented By: ESTEBAN Sodium Biphosphate/Sodium Phosphate (Sodium Phosphate,Kay-Dibasic 133 Ml Enema) 133 ml VT ONCE PRN PRN Reason: Constipation Last Admin: 09/07/23 12:02 Dose: 133 ml Documented By: JULIA Labs 09/09/23 10:27 09/09/23 11:55 Labs: Laboratory Results - last 24 hr 09/08/23 09/08/23 09/08/23 06:53 15:09 20:17 O2 Saturation ABG pH at Pt Temp ABG pCO2 at Pt Temp ABG pO2 at Pt Temp ABG HCO3 ABG Base Excess (Actual) VBG pH VBG pCO2 VBG pO2 VBG HCO3 VBG O2 Saturation VBG Base Excess Anion Gap 13 Estim Creat Clear Calc 137.7 Estimated GFR > 60 POC Glucose 143 H 114 Random Glucose 122 H Calcium 8.6 Phosphorus 1.7 L Magnesium 1.7 B-Natriuretic Peptide Albumin 3.7 09/09/23 09/09/23 09/09/23 00:02 03:00 03:47 O2 Saturation ABG pH at Pt Temp ABG pCO2 at Pt Temp ABG pO2 at Pt Temp ABG HCO3 ABG Base Excess (Actual) VBG pH 7.57 H VBG pCO2 39 VBG pO2 86 VBG HCO3 36 H VBG O2 Saturation 100.0 VBG Base Excess 13.8 Anion Gap Estim Creat Clear Calc Estimated GFR POC Glucose 110 Random Glucose Calcium Phosphorus Magnesium B-Natriuretic Peptide 251 H Albumin 09/09/23 09/09/23 08:56 09:28 O2 Saturation 97.0 ABG pH at Pt Temp 7.46 H ABG pCO2 at Pt Temp 52 H ABG pO2 at Pt Temp 83 ABG HCO3 37 H ABG Base Excess (Actual) 12.1 VBG pH VBG pCO2 VBG pO2 VBG HCO3 VBG O2 Saturation VBG Base Excess Anion Gap Estim Creat Clear Calc Estimated GFR POC Glucose 138 H Random Glucose Calcium Phosphorus Magnesium B-Natriuretic Peptide Albumin Assessment and Plan (1) Pulmonary aspiration: Status: Acute (2) Shock: Status: Acute (3) Ischemic hepatitis: Status: Acute (4) Cardiac arrest: Status: Acute (5) Septic shock: Status: Acute Plan A 62-year-old female, obese, with rheumatoid arthritis on methotrexate (MTX), hypertension, and hypothyroidism, has been in the ICU since 08/31. She was brought to the emergency department in an unresponsive state, hypoxic/cyanotic, with an undetectable blood pressure and oxygen saturation in the 70s. She experienced cardiac arrest during the intubation process but regained return of spontaneous circulation (ROSC) following 2 rounds of CPR. The patient's ICU course has been complicated by hypovelemic shock, shocked liver, and acute tubular necrosis (ATN) due to renal hypoperfusion from profound hypotension. Although clinically she may have had anoxic encephalopathy, this has not been demonstrated on MRI. She was successfully extubated on 09/05 and maintains oxygen saturation, breathing comfortably on her own. She has been on Zosyn since 08/31 for suspected aspiration pneumonia. She remains fairly confused, although able to answer yes/no questions. She is NPO and will require a formal swallow evaluation before feeding. Cardiac arrest d/t hypoxia--ROSC after 2 rounds of CPR Acute hypoxic respiratory failure--suspected d/t aspiration, intubated from 08/31 to and overall getting better, still on Oxygen which titrated down as maria with goal of 92%. Overnight hyperventilating, CXR showed peristent multifocal infiltrate, ABG so far reassuring. Pulmonology is recommending HighFLow and repeating ABG. Not candidated for CPAP/bipap d/t mental status Aspiration pneumonia--Zosyn since 08/31, once able to eat, will change to PO Augmentin for 7 to 10 days Enterococcus bacteremia from 08/31 culture--continue Zosyn and when eating then Augment Hypovolemia shock not --resucitated with IVF ATN--d/t Hypovolemia/shock--resolved, Creatine back to baseline Anoxic encephalopathy-- not demonstrated on MRI, but clinically and expected to improve Dysphagia--Speech recommended regular diet but refusing to eat Hypoglycemia ? d/t not eating, .. continue D10 and cover with insulin as needed, hypoglycemia work May need TPN or ultimately Tube feed if continues to refuse to eat because of mental status RA--once able to take by mouth. Was on Methotraxate on Mondays, restart, and restart Prednisone if able to take oral Acute hepatitis d/t shocked liver--LFTs trending down Fluid overload with cumulative 14 Liter positive since admission, d/t IVF, BNP on low side. -Agree Obesity--should work on weight loss DVT prophylaxis--Restart Heparin Full Code PT and OT eval tomorrow Quality Stroke Does the patient have a stroke diagnosis?: No VTE Prior VTE?: No VTE Risk Level:: Medical - moderate - high VTE Device Contraindication: N/A - Device Ordered VTE Drug Contraindication: N/A - Med Ordered
--- NOTE | 2023-09-09 10:36 | P.CONPL_ITS ---
History of Present Illness History of Present Illness Consult date: 09/09/23 Chief complaint: cardiac arrest Narrative: This is the inpatient patient. The patient is unable to provide any additional information due to her altered mental status. All the information was gathered from the chart. The patient is a 62-year-old female with underlying history of rheumatoid arthritis, hypertension, hypothyroidism admitted on 09/01/2023 with hypoxia.? Upon arrival to ER patient noted to be cyanotic with no measurable blood pressure and O2 saturation in 70s.? Patient was intubated with tanja intubation cardiac arrest with return of spontaneous circulation after 2 rounds of CPR.? Patient admitted to the intensive care unit from 09/01/23 to 09/07/23. Extubated 09/06/23.? Hospital course significant for profound hypoxemia and shock with ischemic hepatitis and ATN.? transferred to the medical floor on 09/07/2023.? ? Overnight the patient developed significant tachypneic with respiratory rate in the 40s.? Critical Care was then consulted. The patient was placed on additional diuretic therapy to try to help and also on an oxygen mask. This morning she is not following any commands. Not clear after having the cardiac arrest what her baseline will be. Based on her altered mental status and her tachypnea the patient did undergo a blood gas. She appears to have chronic hypercarbic respiratory failure with a pCO2 of 52 mmHg in addition to that appears to have a mild metabolic alkalosis. The patient also had a chest x-ray demonstrating interval improvement of the airspace disease bilaterally. Her cultures were positive for Enterococcus faecalis and also likely a contaminant coag-negative staph. She is currently on Zosyn. The patient is having waxing waning mental status. She does open her eyes to physical stimuli although she then closes them up again. Her pupils are indeed reactive. She is snoring as she sleeps elevated likely underlying obstructive sleep apnea and obesity hypoventilation syndrome that unlikely contributing to her underlying clinical presentation. The patient does not appear to be protecting her airway completely therefore at risk for reaspiration. Therefore, would not be safe for her to have a BiPAP machine based on her not being able to protect her airway. Will try high-flow will continue to monitor closely her blood gas. Review of Systems 2 Review of Systems: Yes Unobtainable due to mental condition and Unobtainable due to mental status Neurologic: Reports confusion Psychiatric: Psychiatric: Reports confusion PMFSH Past Medical History Medical History (Updated 09/09/23 @ 11:04 by Neno Guzman MD) Encephalopathy Erich lesion, chronic Low TSH level Episode of generalized weakness Positive fecal occult blood test GI bleed Insomnia Anemia Asthma RABIA (obstructive sleep apnea) Obesity Hypertension Thyroiditis Rheumatoid arthritis Hypothyroidism Depression Ulcer Family History Family History Other Cirrhosis Surgical History Surgical History Hx of colonoscopy History of esophagogastroduodenoscopy (EGD) Hx of hernia repair H/O lymph node biopsy Status post biopsy of uterine cervix History of appendectomy Social History Social History Household Members: Unknown / Unable to assess Housing: House Do you presently have visiting nurse or other home services: Yes ([employer]) Alcohol intake: never Comment: RN sitting at station outside pt's room Patient Tobacco Use Status: Never used Tobacco Use of substances other than those prescribed or required for medical reasons: Unable to respond Currently Displaying Signs/Symptoms of Drug Intoxication Withdrawal: No Advance Directives: Yes Advance Directives on File: Yes Advance Directives Date on File: 03/22/20 Nutrition Risks: No Nutritional Risk Patient : No : No service: No Current occupational status: disabled 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 Fluoxetine HCl (Fluoxetine Hcl 20 Mg Capsule) 40 mg PO DAILY [facility]ILE Glucose (Glucose Gel 15 Gm Gel..Gram.) 15 gm PO Q15M PRN; Protocol PRN Reason: per Hypoglycemia Standing Ord. Heparin Sodium (Porcine) (Heparin Sodium,Porcine 5,000 Unit/Ml Vial) 5,000 unit SUBCUT Q8H [facility]ILE Last Admin: 09/09/23 09:15 Dose: 5,000 unit Hydroxychloroquine Sulfate (Hydroxychloroquine Sulfate 200 Mg Tablet) 200 mg PO DAILY [facility] Piperacillin Sod/Tazobactam (Sod 3.375 gm/ Sodium Chloride) 50 mls @ 100 mls/hr IV Q6H [facility] Last Admin: 09/09/23 09:14 Dose: 100 mls/hr Insulin Human Lispro (Insulin Lispro 100 Unit/Ml 3 Ml Vial) 0 unit SUBCUT Q6H [facility]; Protocol Last Admin: 09/09/23 09:11 Dose: Not Given Morphine Sulfate (Morphine Sulfate 2 Mg/Ml Cartridge) 0.5 mg IVPUSH Q4H PRN; Protocol PRN Reason: Pain, Severe (Pain Scale 7-10) Last Admin: 09/08/23 20:35 Dose: 0.5 mg Pantoprazole Sodium (Pantoprazole Sodium 40 Mg/10 Ml Vial) 40 mg IVPUSH DAILY@0630 [facility] Last Admin: 09/09/23 06:42 Dose: 40 mg Prednisone (Prednisone 5 Mg Tablet) 5 mg PO DAILY [facility] Sodium Biphosphate/Sodium Phosphate (Sodium Phosphate,[place]-Dibasic 133 Ml Enema) 133 ml [place] ONCE PRN PRN Reason: Constipation Last Admin: 09/07/23 12:02 Dose: 133 ml Sucralfate (Sucralfate 1 Gm Tablet) 1 gm PO BID@0630,1630 [facility] Home Medications Medication Instructions Recorded Confirmed Last Taken Type oxycodone 10 mg tablet 10 mg PO BID PRN Pain, Moderate 03/12/20 09/01/23 04/21/21 History pantoprazole 40 mg tablet,delayed 1 tab PO DAILY@0630 03/12/20 09/01/23 04/21/21 History release ferrous sulfate 325 mg (65 mg 1 tab PO DAILY 01/03/21 09/01/23 04/21/21 History iron) tablet hydroxychloroquine 200 mg tablet 1 tab PO DAILY 01/03/21 09/01/23 04/21/21 History prednisone 5 mg tablet 1 tab PO DAILY 01/03/21 09/01/23 04/21/21 History fluoxetine 40 mg capsule 1 cap PO DAILY 04/22/21 09/01/23 04/21/21 History gabapentin 300 mg capsule 300 mg PO BEDTIME 09/01/23 09/01/23 Unknown History Physical Exam 2 Vital Signs: Vital Signs: Last Vital Signs Temp 98.1 F 09/09/23 09:44 Pulse 103 H 09/09/23 10:08 Resp 34 H 09/09/23 09:44 BP 131/68 09/09/23 09:44 Pulse Ox 90 L 09/09/23 10:08 O2 Del Method Oxymask 09/09/23 09:44 O2 Flow Rate 5 09/09/23 09:44 FiO2 40 09/06/23 12:56 BMI result Body Mass Index 39.7 Const: General: acute distress mild, confusion and other (somnolent) N utritional Appearance: obese Orientation/consciousness: confusion HEENT: Head: Yes normocephalic Eyes: Pupils: Equal, round and reactive pupils present Neck: Neck: Yes trachea midline and Yes supple Chest: Chest palpation & inspection: normal inspection of the chest Resp: Effort & Inspection: tachypneic and other (snorring) Auscultation: d iminished lung sounds Cardio: Rate: regular rate Rhythm: regular rhythm Heart sounds: no gallops, no murmurs and no rubs GI: Palpation (GI): Soft to palpation and Other GI palpation findings present ( Nontender) Auscultation: normal bowel sounds Skin: General skin exam: no rashes or lesions noted Neuro: General: confusion Cranial nerves: Yes Equal, round and reactive pupils present Extrem: General: No clubbing and No cyanosis Results Laboratory Findings 09/08/23 06:53 09/08/23 06:53 ABG, PT/INR, D-dimer: PT/INR, D-dimer PT 18.4 SEC (11.1-13.3) H 09/01/23 10:44 INR 1.5 (0.9-1.1) H 09/01/23 10:44 Abnormal lab findings: Abnormal Labs 09/01/23 09/01/23 09/01/23 10:23 10:41 10:44 WBC RBC 4.16 L Hgb Hct MCV 104.6 H MCHC 29.9 L Plt Count Immature Gran % (Auto) 1.3 H Neut % (Auto) 73.5 H Lymph % (Auto) [place] % (Auto) Eos % (Auto) Lymph # (Auto) Abs Immat Gran (auto) 0.10 H Absolute Neuts (auto) Absolute Nucleated RBC 0.030 H Nucleated RBC % (auto) 0.4 H Neutrophils % (Manual) Band Neutrophils % Lymphocytes % (Manual) Eosinophils % (Manual) Abs Neuts (Manual) Lymphocytes # (Manual) Eosinophils # (Manual) Nucleated RBCs PT 18.4 H INR 1.5 H APTT 23.2 L ABG pH at Pt Temp ABG pCO2 at Pt Temp ABG pO2 at Pt Temp ABG HCO3 VBG pH VBG HCO3 Sodium Potassium Chloride Carbon Dioxide 21 L Anion Gap 24 H BUN 25 H Creatinine 1.66 H POC Glucose 21 L* 150 H Random Glucose 590 H* Lactic Acid 11.3 H* Lactic Acid F/U @ 2Hr Lactic Acid F/U @ 4Hr Calcium 7.4 L D Phosphorus Magnesium Total Bilirubin AST 710 H ALT 692 H Total Creatine Kinase 165 H Troponin I High Sens 64.6 H* B-Natriuretic Peptide 293 H Total Protein 5.4 L Albumin 2.2 L Urine Protein Urine Blood Salicylates Urine Opiates Screen Crossmatch ([facility]) 09/01/23 09/01/23 09/01/23 10:47 11:03 11:04 WBC RBC Hgb Hct MCV MCHC Plt Count Immature Gran % (Auto) Neut % (Auto) Lymph % (Auto) [place] % (Auto) Eos % (Auto) Lymph # (Auto) Abs Immat Gran (auto) Absolute Neuts (auto) Absolute Nucleated RBC Nucleated RBC % (auto) Neutrophils % (Manual) Band Neutrophils % Lymphocytes % (Manual) Eosinophils % (Manual) Abs Neuts (Manual) Lymphocytes # (Manual) Eosinophils # (Manual) Nucleated RBCs PT INR APTT ABG pH at Pt Temp ABG pCO2 at Pt Temp ABG pO2 at Pt Temp ABG HCO3 VBG pH VBG HCO3 Sodium Potassium Chloride Carbon Dioxide Anion Gap BUN Creatinine POC Glucose 324 H Random Glucose Lactic Acid Lactic Acid F/U @ 2Hr Lactic Acid F/U @ 4Hr Calcium Phosphorus Magnesium Total Bilirubin AST ALT Total Creatine Kinase Troponin I High Sens B-Natriuretic Peptide Total Protein Albumin Urine Protein 30 (1+) H Urine Blood Trace H Salicylates Urine Opiates Screen Crossmatch ([facility]) See Detail 09/01/23 09/01/23 09/01/23 11:37 12:03 13:20 WBC RBC Hgb Hct MCV MCHC Plt Count Immature Gran % (Auto) Neut % (Auto) Lymph % (Auto) [place] % (Auto) Eos % (Auto) Lymph # (Auto) Abs Immat Gran (auto) Absolute Neuts (auto) Absolute Nucleated RBC Nucleated RBC % (auto) Neutrophils % (Manual) Band Neutrophils % Lymphocytes % (Manual) Eosinophils % (Manual) Abs Neuts (Manual) Lymphocytes # (Manual) Eosinophils # (Manual) Nucleated RBCs PT INR APTT ABG pH at Pt Temp 7.12 L* ABG pCO2 at Pt Temp 58 H ABG pO2 at Pt Temp 70 L ABG HCO3 19 L VBG pH VBG HCO3 Sodium Potassium Chloride Carbon Dioxide Anion Gap BUN Creatinine POC Glucose 202 H Random Glucose Lactic Acid Lactic Acid F/U @ 2Hr 9.6 H* Lactic Acid F/U @ 4Hr Calcium Phosphorus Magnesium Total Bilirubin AST ALT Total Creatine Kinase Troponin I High Sens B-Natriuretic Peptide Total Protein Albumin Urine Protein Urine Blood Salicylates < 5.0 L Urine Opiates Screen POSITIVE H Crossmatch ([facility]) 09/01/23 09/01/23 09/01/23 15:36 19:41 22:07 WBC RBC Hgb Hct MCV MCHC Plt Count Immature Gran % (Auto) Neut % (Auto) Lymph % (Auto) [place] % (Auto) Eos % (Auto) Lymph # (Auto) Abs Immat Gran (auto) Absolute Neuts (auto) Absolute Nucleated RBC Nucleated RBC % (auto) Neutrophils % (Manual) Band Neutrophils % Lymphocytes % (Manual) Eosinophils % (Manual) Abs Neuts (Manual) Lymphocytes # (Manual) Eosinophils # (Manual) Nucleated RBCs PT INR APTT ABG pH at Pt Temp ABG pCO2 at Pt Temp ABG pO2 at Pt Temp ABG HCO3 VBG pH 7.30 L VBG HCO3 Sodium Potassium Chloride Carbon Dioxide Anion Gap BUN Creatinine POC Glucose 251 H Random Glucose Lactic Acid Lactic Acid F/U @ 2Hr Lactic Acid F/U @ 4Hr 8.4 H* Calcium Phosphorus Magnesium Total Bilirubin AST ALT Total Creatine Kinase Troponin I High Sens B-Natriuretic Peptide Total Protein Albumin Urine Protein Urine Blood Salicylates Urine Opiates Screen Crossmatch ([facility]) 09/01/23 09/02/23 09/02/23 22:10 01:48 01:50 WBC RBC Hgb Hct MCV MCHC Plt Count Immature Gran % (Auto) Neut % (Auto) Lymph % (Auto) [place] % (Auto) Eos % (Auto) Lymph # (Auto) Abs Immat Gran (auto) Absolute Neuts (auto) Absolute Nucleated RBC Nucleated RBC % (auto) Neutrophils % (Manual) Band Neutrophils % Lymphocytes % (Manual) Eosinophils % (Manual) Abs Neuts (Manual) Lymphocytes # (Manual) Eosinophils # (Manual) Nucleated RBCs PT INR APTT ABG pH at Pt Temp ABG pCO2 at Pt Temp ABG pO2 at Pt Temp ABG HCO3 VBG pH 7.28 L VBG HCO3 Sodium Potassium 3.0 L D Chloride 95 L Carbon Dioxide Anion Gap 22 H BUN 30 H 31 H Creatinine 1.43 H 1.48 H POC Glucose Random Glucose 218 H 170 H Lactic Acid Lactic Acid F/U @ 2Hr Lactic Acid F/U @ 4Hr Calcium 7.8 L 8.0 L Phosphorus 2.2 L Magnesium 1.2 L* 1.5 L Total Bilirubin AST ALT Total Creatine Kinase Troponin I High Sens B-Natriuretic Peptide Total Protein Albumin Urine Protein Urine Blood Salicylates Urine Opiates Screen Crossmatch ([facility]) 09/02/23 09/02/23 09/02/23 06:14 06:18 11:15 WBC 12.3 H RBC Hgb Hct MCV MCHC Plt Count Immature Gran % (Auto) Neut % (Auto) Lymph % (Auto) [place] % (Auto) Eos % (Auto) Lymph # (Auto) Abs Immat Gran (auto) Absolute Neuts (auto) Absolute Nucleated RBC 0.170 H Nucleated RBC % (auto) 1.4 H Neutrophils % (Manual) 27 L Band Neutrophils % 32 H Lymphocytes % (Manual) 15 L Eosinophils % (Manual) 5 H Abs Neuts (Manual) Lymphocytes # (Manual) Eosinophils # (Manual) 0.6 H Nucleated RBCs 1 H PT INR APTT ABG pH at Pt Temp ABG pCO2 at Pt Temp ABG pO2 at Pt Temp ABG HCO3 VBG pH VBG HCO3 Sodium 132 L Potassium Chloride 94 L Carbon Dioxide Anion Gap BUN 31 H Creatinine 1.59 H POC Glucose 193 H 147 H Random Glucose 187 H Lactic Acid Lactic Acid F/U @ 2Hr Lactic Acid F/U @ 4Hr Calcium 8.0 L Phosphorus 1.9 L Magnesium Total Bilirubin AST ALT Total Creatine Kinase Troponin I High Sens B-Natriuretic Peptide Total Protein Albumin 2.7 L Urine Protein Urine Blood Salicylates Urine Opiates Screen Crossmatch ([facility]) 03/25/24 03/26/24 03/26/24 17:44 04:11 04:35 WBC 11.7 H RBC 3.77 L Hgb Hct 35.5 L MCV MCHC Plt Count 152 L D Immature Gran % (Auto) Neut % (Auto) Lymph % (Auto) [place] % (Auto) Eos % (Auto) Lymph # (Auto) Abs Immat Gran (auto) Absolute Neuts (auto) Absolute Nucleated RBC Nucleated RBC % (auto) Neutrophils % (Manual) Band Neutrophils % 36 H Lymphocytes % (Manual) 5 L Eosinophils % (Manual) Abs Neuts (Manual) 10.4 H Lymphocytes # (Manual) 0.6 L Eosinophils # (Manual) Nucleated RBCs PT INR APTT ABG pH at Pt Temp ABG pCO2 at Pt Temp ABG pO2 at Pt Temp ABG HCO3 VBG pH 7.48 H VBG HCO3 29 H Sodium Potassium Chloride Carbon Dioxide Anion Gap 22 H BUN 30 H Creatinine 1.43 H POC Glucose 163 H Random Glucose Lactic Acid Lactic Acid F/U @ 2Hr Lactic Acid F/U @ 4Hr Calcium Phosphorus Magnesium Total Bilirubin 2.3 H AST 235 H ALT 338 H Total Creatine Kinase Troponin I High Sens B-Natriuretic Peptide Total Protein 6.4 L Albumin Urine Protein Urine Blood Salicylates Urine Opiates Screen Crossmatch ([facility]) 09/03/23 09/03/23 09/03/23 11:10 17:39 23:56 WBC RBC Hgb Hct MCV MCHC Plt Count Immature Gran % (Auto) Neut % (Auto) Lymph % (Auto) [place] % (Auto) Eos % (Auto) Lymph # (Auto) Abs Immat Gran (auto) Absolute Neuts (auto) Absolute Nucleated RBC Nucleated RBC % (auto) Neutrophils % (Manual) Band Neutrophils % Lymphocytes % (Manual) Eosinophils % (Manual) Abs Neuts (Manual) Lymphocytes # (Manual) Eosinophils # (Manual) Nucleated RBCs PT INR APTT ABG pH at Pt Temp ABG pCO2 at Pt Temp ABG pO2 at Pt Temp ABG HCO3 VBG pH VBG HCO3 Sodium Potassium Chloride Carbon Dioxide Anion Gap BUN Creatinine POC Glucose 140 H 164 H 158 H Random Glucose Lactic Acid Lactic Acid F/U @ 2Hr Lactic Acid F/U @ 4Hr Calcium Phosphorus Magnesium Total Bilirubin AST ALT Total Creatine Kinase Troponin I High Sens B-Natriuretic Peptide Total Protein Albumin Urine Protein Urine Blood Salicylates Urine Opiates Screen Crossmatch ([facility]) 09/04/23 09/04/23 09/04/23 05:30 05:32 06:07 WBC 11.9 H RBC 3.82 L Hgb 11.6 L Hct 36.6 L MCV MCHC Plt Count 143 L Immature Gran % (Auto) 0.6 H Neut % (Auto) 82.2 H Lymph % (Auto) 10.5 L [place] % (Auto) Eos % (Auto) Lymph # (Auto) Abs Immat Gran (auto) 0.07 H Absolute Neuts (auto) 9.8 H Absolute Nucleated RBC Nucleated RBC % (auto) Neutrophils % (Manual) Band Neutrophils % Lymphocytes % (Manual) Eosinophils % (Manual) Abs Neuts (Manual) Lymphocytes # (Manual) Eosinophils # (Manual) Nucleated RBCs PT INR APTT ABG pH at Pt Temp ABG pCO2 at Pt Temp ABG pO2 at Pt Temp ABG HCO3 VBG pH 7.47 H VBG HCO3 34 H Sodium Potassium 3.2 L D Chloride Carbon Dioxide Anion Gap 11 L BUN 21 H Creatinine POC Glucose 138 H Random Glucose 152 H Lactic Acid Lactic Acid F/U @ 2Hr Lactic Acid F/U @ 4Hr Calcium Phosphorus 2.0 L Magnesium Total Bilirubin 1.7 H AST 149 H ALT 267 H Total Creatine Kinase Troponin I High Sens B-Natriuretic Peptide Total Protein 5.9 L Albumin 3.1 L Urine Protein Urine Blood Salicylates Urine Opiates Screen Crossmatch ([facility]) 09/04/23 09/04/23 09/04/23 11:35 17:41 23:52 WBC RBC Hgb Hct MCV MCHC Plt Count Immature Gran % (Auto) Neut % (Auto) Lymph % (Auto) [place] % (Auto) Eos % (Auto) Lymph # (Auto) Abs Immat Gran (auto) Absolute Neuts (auto) Absolute Nucleated RBC Nucleated RBC % (auto) Neutrophils % (Manual) Band Neutrophils % Lymphocytes % (Manual) Eosinophils % (Manual) Abs Neuts (Manual) Lymphocytes # (Manual) Eosinophils # (Manual) Nucleated RBCs PT INR APTT ABG pH at Pt Temp ABG pCO2 at Pt Temp ABG pO2 at Pt Temp ABG HCO3 VBG pH VBG HCO3 Sodium Potassium Chloride Carbon Dioxide Anion Gap BUN Creatinine POC Glucose 130 H 149 H 145 H Random Glucose Lactic Acid Lactic Acid F/U @ 2Hr Lactic Acid F/U @ 4Hr Calcium Phosphorus Magnesium Total Bilirubin AST ALT Total Creatine Kinase Troponin I High Sens B-Natriuretic Peptide Total Protein Albumin Urine Protein Urine Blood Salicylates Urine Opiates Screen Crossmatch ([facility]) 09/05/23 09/05/23 09/05/23 04:34 04:52 10:59 WBC RBC 3.55 L Hgb 11.1 L Hct 34.4 L MCV MCHC Plt Count 122 L Immature Gran % (Auto) 0.6 H Neut % (Auto) 75.2 H Lymph % (Auto) 13.5 L [place] % (Auto) Eos % (Auto) Lymph # (Auto) 1.1 L Abs Immat Gran (auto) 0.05 H Absolute Neuts (auto) Absolute Nucleated RBC Nucleated RBC % (auto) Neutrophils % (Manual) Band Neutrophils % Lymphocytes % (Manual) Eosinophils % (Manual) Abs Neuts (Manual) Lymphocytes # (Manual) Eosinophils # (Manual) Nucleated RBCs PT INR APTT ABG pH at Pt Temp ABG pCO2 at Pt Temp ABG pO2 at Pt Temp ABG HCO3 VBG pH VBG HCO3 34 H Sodium Potassium 2.9 L* Chloride Carbon Dioxide 30 H Anion Gap BUN 21 H Creatinine POC Glucose 117 H Random Glucose 156 H Lactic Acid Lactic Acid F/U @ 2Hr Lactic Acid F/U @ 4Hr Calcium Phosphorus 1.6 L Magnesium Total Bilirubin AST ALT Total Creatine Kinase Troponin I High Sens B-Natriuretic Peptide Total Protein Albumin 3.4 L Urine Protein Urine Blood Salicylates Urine Opiates Screen Crossmatch ([facility]) 09/05/23 09/06/23 09/06/23 23:50 04:45 04:53 WBC RBC 3.56 L Hgb 10.9 L Hct 34.3 L MCV MCHC Plt Count 88 L D Immature Gran % (Auto) 1.2 H Neut % (Auto) Lymph % (Auto) [place] % (Auto) 13.1 H Eos % (Auto) 4.9 H Lymph # (Auto) Abs Immat Gran (auto) 0.07 H Absolute Neuts (auto) Absolute Nucleated RBC Nucleated RBC % (auto) Neutrophils % (Manual) Band Neutrophils % Lymphocytes % (Manual) Eosinophils % (Manual) Abs Neuts (Manual) Lymphocytes # (Manual) Eosinophils # (Manual) Nucleated RBCs PT INR APTT ABG pH at Pt Temp ABG pCO2 at Pt Temp ABG pO2 at Pt Temp ABG HCO3 VBG pH 7.45 H VBG HCO3 34 H Sodium Potassium Chloride Carbon Dioxide 31 H Anion Gap 11 L BUN 22 H Creatinine POC Glucose 129 H Random Glucose 146 H Lactic Acid Lactic Acid F/U @ 2Hr Lactic Acid F/U @ 4Hr Calcium Phosphorus 2.0 L Magnesium Total Bilirubin AST ALT Total Creatine Kinase Troponin I High Sens B-Natriuretic Peptide Total Protein Albumin Urine Protein Urine Blood Salicylates Urine Opiates Screen Crossmatch ([facility]) 09/06/23 09/06/23 09/06/23 11:05 20:02 20:04 WBC RBC Hgb Hct MCV MCHC Plt Count Immature Gran % (Auto) Neut % (Auto) Lymph % (Auto) [place] % (Auto) Eos % (Auto) Lymph # (Auto) Abs Immat Gran (auto) Absolute Neuts (auto) Absolute Nucleated RBC Nucleated RBC % (auto) Neutrophils % (Manual) Band Neutrophils % Lymphocytes % (Manual) Eosinophils % (Manual) Abs Neuts (Manual) Lymphocytes # (Manual) Eosinophils # (Manual) Nucleated RBCs PT INR APTT ABG pH at Pt Temp ABG pCO2 at Pt Temp ABG pO2 at Pt Temp ABG HCO3 VBG pH 7.46 H VBG HCO3 33 H Sodium Potassium Chloride Carbon Dioxide 31 H Anion Gap BUN 19 H Creatinine POC Glucose 146 H Random Glucose Lactic Acid Lactic Acid F/U @ 2Hr Lactic Acid F/U @ 4Hr Calcium Phosphorus 2.5 L Magnesium Total Bilirubin AST ALT Total Creatine Kinase Troponin I High Sens B-Natriuretic Peptide Total Protein Albumin Urine Protein Urine Blood Salicylates Urine Opiates Screen Crossmatch ([facility]) 09/07/23 09/07/23 09/07/23 04:44 04:47 12:02 WBC RBC 3.47 L Hgb 10.9 L Hct 34.2 L MCV 98.6 H MCHC Plt Count 115 L D Immature Gran % (Auto) 1.3 H Neut % (Auto) Lymph % (Auto) 17.7 L [place] % (Auto) 12.0 H Eos % (Auto) 5.1 H Lymph # (Auto) Abs Immat Gran (auto) 0.09 H Absolute Neuts (auto) Absolute Nucleated RBC Nucleated RBC % (auto) Neutrophils % (Manual) Band Neutrophils % Lymphocytes % (Manual) Eosinophils % (Manual) Abs Neuts (Manual) Lymphocytes # (Manual) Eosinophils # (Manual) Nucleated RBCs PT INR APTT ABG pH at Pt Temp ABG pCO2 at Pt Temp ABG pO2 at Pt Temp ABG HCO3 VBG pH VBG HCO3 34 H Sodium Potassium Chloride Carbon Dioxide 30 H Anion Gap 11 L BUN 17 H Creatinine POC Glucose 137 H Random Glucose 117 H Lactic Acid Lactic Acid F/U @ 2Hr Lactic Acid F/U @ 4Hr Calcium 8.3 L Phosphorus 2.6 L Magnesium Total Bilirubin 1.4 H AST 38 H ALT 88 H Total Creatine Kinase Troponin I High Sens B-Natriuretic Peptide Total Protein 6.1 L Albumin 3.1 L Urine Protein Urine Blood Salicylates Urine Opiates Screen Crossmatch ([facility]) 09/08/23 09/08/23 09/08/23 03:02 06:53 07:06 WBC RBC 3.55 L Hgb 10.9 L Hct 34.6 L MCV MCHC Plt Count 147 L D Immature Gran % (Auto) 0.7 H Neut % (Auto) Lymph % (Auto) 13.8 L [place] % (Auto) Eos % (Auto) 4.6 H Lymph # (Auto) 1.0 L Abs Immat Gran (auto) 0.05 H Absolute Neuts (auto) Absolute Nucleated RBC Nucleated RBC % (auto) Neutrophils % (Manual) Band Neutrophils % Lymphocytes % (Manual) Eosinophils % (Manual) Abs Neuts (Manual) Lymphocytes # (Manual) Eosinophils # (Manual) Nucleated RBCs PT INR APTT ABG pH at Pt Temp ABG pCO2 at Pt Temp ABG pO2 at Pt Temp ABG HCO3 VBG pH 7.44 H VBG HCO3 40 H Sodium Potassium Chloride Carbon Dioxide Anion Gap BUN Creatinine POC Glucose 117 H Random Glucose 122 H Lactic Acid Lactic Acid F/U @ 2Hr Lactic Acid F/U @ 4Hr Calcium Phosphorus 1.7 L Magnesium Total Bilirubin AST ALT Total Creatine Kinase Troponin I High Sens B-Natriuretic Peptide Total Protein Albumin Urine Protein Urine Blood Salicylates Urine Opiates Screen Crossmatch ([facility]) 09/08/23 09/08/23 09/09/23 08:54 15:09 00:02 WBC RBC Hgb Hct MCV MCHC Plt Count Immature Gran % (Auto) Neut % (Auto) Lymph % (Auto) [place] % (Auto) Eos % (Auto) Lymph # (Auto) Abs Immat Gran (auto) Absolute Neuts (auto) Absolute Nucleated RBC Nucleated RBC % (auto) Neutrophils % (Manual) Band Neutrophils % Lymphocytes % (Manual) Eosinophils % (Manual) Abs Neuts (Manual) Lymphocytes # (Manual) Eosinophils # (Manual) Nucleated RBCs PT INR APTT ABG pH at Pt Temp ABG pCO2 at Pt Temp ABG pO2 at Pt Temp ABG HCO3 VBG pH 7.57 H VBG HCO3 36 H Sodium Potassium Chloride Carbon Dioxide Anion Gap BUN Creatinine POC Glucose 120 H 143 H Random Glucose Lactic Acid Lactic Acid F/U @ 2Hr Lactic Acid F/U @ 4Hr Calcium Phosphorus Magnesium Total Bilirubin AST ALT Total Creatine Kinase Troponin I High Sens B-Natriuretic Peptide Total Protein Albumin Urine Protein Urine Blood Salicylates Urine Opiates Screen Crossmatch ([facility]) 09/09/23 09/09/23 09/09/23 03:47 08:56 09:28 WBC RBC Hgb Hct MCV MCHC Plt Count Immature Gran % (Auto) Neut % (Auto) Lymph % (Auto) [place] % (Auto) Eos % (Auto) Lymph # (Auto) Abs Immat Gran (auto) Absolute Neuts (auto) Absolute Nucleated RBC Nucleated RBC % (auto) Neutrophils % (Manual) Band Neutrophils % Lymphocytes % (Manual) Eosinophils % (Manual) Abs Neuts (Manual) Lymphocytes # (Manual) Eosinophils # (Manual) Nucleated RBCs PT INR APTT ABG pH at Pt Temp 7.46 H ABG pCO2 at Pt Temp 52 H ABG pO2 at Pt Temp ABG HCO3 37 H VBG pH VBG HCO3 Sodium Potassium Chloride Carbon Dioxide Anion Gap BUN Creatinine POC Glucose 138 H Random Glucose Lactic Acid Lactic Acid F/U @ 2Hr Lactic Acid F/U @ 4Hr Calcium Phosphorus Magnesium Total Bilirubin AST ALT Total Creatine Kinase Troponin I High Sens B-Natriuretic Peptide 251 H Total Protein Albumin Urine Protein Urine Blood Salicylates Urine Opiates Screen Crossmatch ([facility]) Microbiology: Microbiology 09/01/23 11:57 Blood - Venous Blood Culture - Final No growth after 5 days. 09/01/23 10:44 Blood - Venous Blood Culture - Final Enterococcus faecalis Coag negative Staphylococcus Assessment and Plan (1) Acute hypoxic respiratory failure: Status: Acute (2) Encephalopathy: Status: Acute (3) Cardiac arrest: Status: Acute (4) Pneumonia: Qualifiers: Pneumonia type: aspiration pneumonia Aspiration pneumonia type: u nspecified Laterality: bilateral Lung location: unspecified part of lung Qualified Code(s): J69.0 - Pneumonitis due to inhalation of food and vomit Status: Acute Plan Start High Flow to help with airway opbstruction No NIV due to concerns with airway protection repeat Bloodgas diuresis as tolerated Continue Abx therapy: Zosyn, please add Vancomycin to broad coverage Critical Procedures Date of Service Date of Service: 09/09/23
[2023-09-09 10:41] LABS: Hematocrit 35.3 % (37.0-47.0); Hemoglobin 11.2 g/dl (12.0-16.0); Mean Corpuscular HGB Conc 31.7 g/dl (31.0-35.0); Mean Corpuscular Hemoglobin 30.6 pg (27.0-33.0); Mean Corpuscular Volume 96.4 fL (80.0-98.0); Mean Platelet Volume 11.4 fL (9.4-12.3); PLT CLUMP 1; Platelet Count 127 X10*3/uL (160-400); Red Blood Count 3.66 X10*6/uL (4.20-5.50); White Blood Count 7.8 X10*3/uL (4.8-10.8)
--- NOTE | 2023-09-09 10:47 | PC.RT ---
Passed down from MD Guzman to MD De; it was sugested that pt be placed on High Flow due to fluid overload.
--- NOTE | 2023-09-09 11:13 | PC.NURSE ---
This AM patient was very lethargic and only able to around with light pain. Patient not responding to name. Upon opening eyes and asking patient questions to determine mental states she was unable to comprehend what we were asking and speech was very mumbled/garbled. Her respiratory rate had increased to the 30's and work of breathing was increased. Patient was reposition and HOB was elevated. MD was notified of the change and came to bedside to assess. Per MD ABG's were obtained and vitals retaken. At this time patient respiratory rate has slightly decreased and ICU was again consulted on the patient. At this time all needs are met and call aguilar withing reach.
--- NOTE | 2023-09-09 11:42 | MHC.CLN ---
F/U PT EXTUBATED ON 09/05 PT REFUSING TO EAT WITH POOR PO X 3 DAYS PT IS CONFUSED, DIFFICULT TO UNDERSTAND AND LETHARGIC PER NSG PT RECEIVED TF IN ICU PRIOR TO EXTUBATION; PROMOTE AT MAX GOAL RATE 50ML/HR WITH 120ML FREE WATER FLUSHES Q 4 HRS PROVIDED 1200KCALS (21KCALS/KG BASED ON IBW), 75G PROTEIN (1.04G/KG BASED ON CMW), 1727 TOTAL ML FREE WATER FROM FORMULA AND FLUSHES (30ML/KG BASED ON IBW) PT WITH INCREASED NUTRITION RISK R/T DTI PRESSURE INJURIES RECOMMEND ADDING ENSURE SUPPLEMENTS WITH MEALS TO INCREASE PO SUPPLEMENTS WILL PROVIDE 700KCALS, 40G PROTEIN MONITOR PO INTAKE AND ENCOURAGE SUPPLEMENTS PT MAY REQUIRE ASSISTANCE AND/OR CUEING WITH MEALS R/T CONFUSION
--- NOTE | 2023-09-09 12:09 | MHC.CM.PN ---
Per MD rounds patient requiring HF Oxygen. She may transfer to ICU later today. The Elder affairs officer from [facility], Officer Greg, came in to see the patient. She was not able to communicate. Contact info for [facility] was provided. Officer Zeke can be reached until 3pm [phone]. It is ok to leave a VM. he will follow up the following day.
[2023-09-09 12:20] LABS: Anion Gap 15 (12-20); Blood Urea Nitrogen 8 mg/dL (9-16); Calcium 8.7 mg/dL (8.4-10.2); Carbon Dioxide 30 mmol/L (22-29); Chloride 101 mmol/L (96-108); Creatinine Clr Calc Pharmacy 119.9; Estimated Glomerular Filt Rate > 60; Glucose Random 113 mg/dL (60-115); Potassium 3.6 mmol/L (3.3-5.1); Sodium 142 mmol/L (135-145)
--- NOTE | 2023-09-09 13:24 | MHC.SLORD ---
Addendum entered and electronically signed by Amada Waldrop MA, CCC-[employer] SYSTEM[employer] ARCHITECT 09/09/23 15:21: Re-attempted BDE this afternoon. No change in status. Patient was not able to remain awake, quickly falling back asleep,not following commands, not safe for feeding and at risk of aspiration. Recommend NPO at this time d/t decreased alertness and responsiveness. ENTER[employer]ISE SYSTEMS ARCHITECT to re-evaluate tomorrow a.m. Original Note: Speech Language Pathology Order Status: Patient was seen by ENTERPRISE SYSTEMS ARCHITECT this morning. She was on HFNC, sleeping and snoring. She awoke momentarily to light touch, but immediately fell back asleep, not able to remain awake for more than 1-2 seconds. She was not responding when lips were moistened with ice. Patient was recommended by ENTERPRISE SYSTEMS ARCHITECT to advance to regular texture solids, not appropriate for PO trials at this time and recommend HOLD TRAY d/t mental status. Will re-attempt later.
[2023-09-09 15:02] LABS: ABG Refer to POC result
[2023-09-09 15:52] LABS: ABG HCO3 38 mmol/L (22-26); ABG pCO2 54 mmHg (32-45); ABG pH 7.44 (7.35-7.45); ABG pO2 72 mmHg (83-108)
[2023-09-09 15:52] LABS: Glucose, Whole Blood 100 mg/dL (60-115)
[2023-09-09 15:52] LABS: Glucose, Whole Blood 111 mg/dL (60-115)
[2023-09-09 15:53] LABS: ABG Refer to POC result
--- NOTE | 2023-09-09 16:24 | PM.EVENT ---
Event Note Date of Service: 09/09/23 Event Note: Pt reassesed and doing better with highflow more awake yet still confused, and did not pass swallow on follow up and NPO is recommended. Nutritional consult is been sought ? need for TPN in the short term, IV glucose discontinued this morning and seemed to be maintaining blood sugar. She remains largely fluid positive and will give additional lasix and possible cardiology eval tomorrow. Patient was not able to take home meds, she's suppse to be prednisone 5 mg daily for RA, will add IV solumedrol Time Spent With Patient Time: Total time managing care of this patient today ____ minutes.
[2023-09-09 17:19] LABS: Glucose, Whole Blood 98 mg/dL (60-115)
[2023-09-09 18:51] LABS: Glucose, Whole Blood 107 mg/dL (60-115)
[2023-09-09] MEDS: Furosemide 200 MG in 0.9 % Sodium Chloride 80 ML IVCONT (20:07)
--- NOTE | 2023-09-09 20:48 | PM.CCPN ---
Subjective Subjective Date of Service: 09/09/23 Interval History: Summary of HPI and Hospital course: Pt is a 62-year-old female who had presented to the ER on 09/01/2023 with hypoxic respiratory failure, cyanotic and no measurable blood pressure, intubated and who sustained a tanja intubation cardiac arrest with successful ROSC after 2 rounds of CPR, cared in the ICU due to profound hypoxemia and shock leading to shock liver syndrome and ATN, but improved and extubated on 09/06/2023, subsequently transferred to the floor on 09/07/2023. There is underlying history of steroid dependent RA, hypertension, hypothyroidism, obesity, depression, obstructive sleep apnea, anxiety, hiatal hernia, COVID infection in 2020, UTI among others. Our team has been following her, it was noted that the patient has recurrent aspiration, appear to fluid overloaded with preserved ejection fracture 55-60% and intact diastolic function per recent echo; however 14 L positive since admission, placed on Lasix this morning around 03:00 and since has diuresed about 3 L. During my evaluation spoke to her in [place], although she is somewhat somnolent and does take a little bit of time to respond, she is able to answer in single words appropriately to simple as well as complex questions, discussion with respiratory therapist and nursing reports no events throughout the day and although she was changed from oxy mask to High flow given high RR she has not had increase in her oxygen needs, currently tolerating high-flow at 50 L, 50%. EXAM: 114/55; 80; 20; 92% on Hiflow 50/50 Patient is obese in no acute respiratory distress, no accessory muscle usage. Alert and oriented x3. There is diffuse edema of the upper and lower extremities although the right hand appears slightly more swollen than the left, lower extremities showed 2+ edema up to the tibial plateau, right knee dressing. Regular rate and rhythm no murmurs rubs gallops Bilateral coarse lung sounds with fine crackles at both bases, minimal rhonchi on the right lower lobe. Abdomen soft and nontender. There is bilateral lower extremity edema 2+ up to the tibial plateau. 2+ pulses upper extremities bilaterally. Laboratories were all reviewed in detail and all WNL CXR IMPRESSION: Moderately extensive multifocal airspace opacities bilaterally, right greater than left. Appearance in the right lung has slightly improved compared to prior. Revised assessment and Plan of Care: 1. As above in HPI summary 2. R> L Aspiration PNA 3. Iatrogrenic Fluid Overload with intact EF 55-60% per recent Echo 4. Metabolic / ? slight anoxic encephalopathy post Cardiac Arrest Continue with current treatment, patient on Zosyn (no recent fevers); so far diuresing great for a total of 3 L in 17h since Lasix started; consider checking ammonia Level. If there are any changes or concerns do not hesitete to contact ICU again Case was discussed in detail with Dr Willett and the above was discussed with IM dr Holbrook. Critical care time used for critical evaluation of this patient, diagnosis, treatment and coordination of care, review her records and documentation TOTAL CRITICAL CARE TIME 60 MIN . discussion and coordination with consultants, completely separate from any procedures performed. . Critical Care Time (minutes): 60 Physical Exam Vital Signs: Vital Signs: Last Vital Signs Temp 98.3 F 09/09/23 15:24 Pulse 87 09/09/23 15:24 Resp 20 09/09/23 20:12 BP 131/71 09/09/23 15:24 Pulse Ox 93 09/09/23 15:24 O2 Del Method High Flow Nasal C annula, Oxymask 09/09/23 15:24 O2 Flow Rate 50 09/09/23 15:24 FiO2 35 09/09/23 15:24 BMI result Body Mass Index 39.7 Objective Data Labs 09/09/23 10:27 09/09/23 11:55 Labs: Laboratory Results - last 24 hr 09/09/23 09/09/23 09/09/23 00:02 03:00 03:47 WBC RBC Hgb Hct MCV MCH MCHC RDW Plt Count MPV Absolute Nucleated RBC Nucleated RBC % (auto) O2 Saturation ABG pH at Pt Temp ABG pCO2 at Pt Temp ABG pO2 at Pt Temp ABG HCO3 ABG Base Excess (Actual) VBG pH 7.57 H VBG pCO2 39 VBG pO2 86 VBG HCO3 36 H VBG O2 Saturation 100.0 VBG Base Excess 13.8 Sodium Potassium Chloride Carbon Dioxide Anion Gap BUN Creatinine Estim Creat Clear Calc Estimated GFR POC Glucose 110 Random Glucose Calcium B-Natriuretic Peptide 251 H 09/09/23 09/09/23 09/09/23 08:56 09:28 10:27 WBC 7.8 RBC 3.66 L Hgb 11.2 L Hct 35.3 L MCV 96.4 MCH 30.6 MCHC 31.7 RDW 15.0 Plt Count 127 L MPV 11.4 Absolute Nucleated RBC 0.000 Nucleated RBC % (auto) 0.0 O2 Saturation 97.0 ABG pH at Pt Temp 7.46 H ABG pCO2 at Pt Temp 52 H ABG pO2 at Pt Temp 83 ABG HCO3 37 H ABG Base Excess (Actual) 12.1 VBG pH VBG pCO2 VBG pO2 VBG HCO3 VBG O2 Saturation VBG Base Excess Sodium Potassium Chloride Carbon Dioxide Anion Gap BUN Creatinine Estim Creat Clear Calc Estimated GFR POC Glucose 138 H Random Glucose Calcium B-Natriuretic Peptide 09/09/23 09/09/23 09/09/23 11:55 15:27 15:44 WBC RBC Hgb Hct MCV MCH MCHC RDW Plt Count MPV Absolute Nucleated RBC Nucleated RBC % (auto) O2 Saturation 95.0 ABG pH at Pt Temp 7.44 ABG pCO2 at Pt Temp 54 H ABG pO2 at Pt Temp 72 L ABG HCO3 38 H ABG Base Excess (Actual) 12.0 VBG pH VBG pCO2 VBG pO2 VBG HCO3 VBG O2 Saturation VBG Base Excess Sodium 142 Potassium 3.6 Chloride 101 Carbon Dioxide 30 H Anion Gap 15 BUN 8 L Creatinine 0.61 Estim Creat Clear Calc 119.9 Estimated GFR > 60 POC Glucose 100 Random Glucose 113 Calcium 8.7 B-Natriuretic Peptide 09/09/23 09/09/23 09/09/23 15:47 17:04 18:46 WBC RBC Hgb Hct MCV MCH MCHC RDW Plt Count MPV Absolute Nucleated RBC Nucleated RBC % (auto) O2 Saturation ABG pH at Pt Temp ABG pCO2 at Pt Temp ABG pO2 at Pt Temp ABG HCO3 ABG Base Excess (Actual) VBG pH VBG pCO2 VBG pO2 VBG HCO3 VBG O2 Saturation VBG Base Excess Sodium Potassium Chloride Carbon Dioxide Anion Gap BUN Creatinine Estim Creat Clear Calc Estimated GFR POC Glucose 111 98 107 Random Glucose Calcium B-Natriuretic Peptide Microbiology Microbiology Results: Microbiology 09/01/23 11:57 Blood - Venous Blood Culture - Final No growth after 5 days. 09/01/23 10:44 Blood - Venous Blood Culture - Final Enterococcus faecalis Coag negative Staphylococcus Quality Stroke Does the patient have a stroke diagnosis?: No VTE Prior VTE?: No VTE Risk Level:: Medical - moderate - high VTE Device Contraindication: N/A - Device Ordered VTE Drug Contraindication: N/A - Med Ordered
[2023-09-09 21:33] LABS: Glucose, Whole Blood 102 mg/dL (60-115)
[2023-09-10] VITALS (12 sets, daily range): BP systolic 108–137; BP diastolic 58–85; PULSE 69–88; RESP 16–26; TEMP 36.1–37; O2SAT 92–97; BMI 33.9
[2023-09-10] MEDS: Piperacillin Sodium/Tazobactam 3.375 GM in 0.9 % Sodium Chloride 50 ML IV ×4 (03:13→19:31)
[2023-09-10 03:14] LABS: Glucose, Whole Blood 96 mg/dL (60-115)
[2023-09-10] MEDS: Heparin Sodium,Porcine 5,000 UNIT/ML VIAL 5000 UNIT SUBCUT ×3 (03:14→17:21)
[2023-09-10] MEDS: Pantoprazole Sodium 40 MG/10 ML VIAL IVPUSH (05:40)
[2023-09-10 08:43] LABS: Hematocrit 39.7 % (37.0-47.0); Hemoglobin 12.7 g/dl (12.0-16.0); Mean Corpuscular Hemoglobin 30.8 pg (27.0-33.0); Mean Corpuscular Volume 96.4 fL (80.0-98.0); Platelet Count 279 X10*3/uL (160-400); Red Blood Count 4.12 X10*6/uL (4.20-5.50); Red Cell Distribution Width 15.1 % (11.0-16.0); White Blood Count 9.7 X10*3/uL (4.8-10.8)
[2023-09-10 08:45] LABS: VBG Base Excess 20.5 mmol/L; VBG HCO3 45 mmol/L (22-26); VBG pCO2 47 mmHg; VBG pH 7.58 (7.32-7.43); VBG pO2 127 mmHg
[2023-09-10 08:45] LABS: Venous Blood Gas Refer to POC result
[2023-09-10] MEDS: methylPREDNISolone Sod Succ 40 MG/ML VIAL 20 MG IVPUSH ×2 (08:50→20:26)
[2023-09-10 08:55] LABS: Ammonia 39 umol/L (13-55)
[2023-09-10 09:01] LABS: Anion Gap 17 (12-20); Blood Urea Nitrogen 10 mg/dL (9-16); Calcium 9.1 mg/dL (8.4-10.2); Carbon Dioxide 35 mmol/L (22-29); Chloride 94 mmol/L (96-108); Creatinine Clr Calc Pharmacy 100.2; Estimated Glomerular Filt Rate > 60; Glucose Random 104 mg/dL (60-115); Sodium 143 mmol/L (135-145)
--- NOTE | 2023-09-10 09:03 | P.PNPL_ITS ---
Subjective Subjective Date of Service: 09/10/23 Interval history: The patient was seen on exam. She was placed on high-flow. Seems to be tolerating better. She had a repeat blood gas which is reassuring. She is more awake this morning. She is actually pleasantly confused. She is disoriented to time and place. She states that she has been coughing up some secretions. At times she had a difficult time expectorating but she was able to bring him up. She is continued on the Zosyn. Currently on a Lasix drip. This morning she had a repeat blood gas demonstrating a metabolic alkalosis. Her bicarb significantly elevated. Could be from contraction due to her diuresis. Objective Data Labs 09/10/23 08:35 09/10/23 08:35 Labs: Laboratory Results - last 24 hr 09/09/23 09/09/23 09/09/23 09:28 10:27 11:55 WBC 7.8 RBC 3.66 L Hgb 11.2 L Hct 35.3 L MCV 96.4 MCH 30.6 MCHC 31.7 RDW 15.0 Plt Count 127 L MPV 11.4 Absolute Nucleated RBC 0.000 Nucleated RBC % (auto) 0.0 O2 Saturation 97.0 ABG pH at Pt Temp 7.46 H ABG pCO2 at Pt Temp 52 H ABG pO2 at Pt Temp 83 ABG HCO3 37 H ABG Base Excess (Actual) 12.1 VBG pH VBG pCO2 VBG pO2 VBG HCO3 VBG O2 Saturation VBG Base Excess Sodium 142 Potassium 3.6 Chloride 101 Carbon Dioxide 30 H Anion Gap 15 BUN 8 L Creatinine 0.61 Estim Creat Clear Calc 119.9 Estimated GFR > 60 POC Glucose Random Glucose 113 Calcium 8.7 Ammonia 09/09/23 09/09/23 09/09/23 15:27 15:44 15:47 WBC RBC Hgb Hct MCV MCH MCHC RDW Plt Count MPV Absolute Nucleated RBC Nucleated RBC % (auto) O2 Saturation 95.0 ABG pH at Pt Temp 7.44 ABG pCO2 at Pt Temp 54 H ABG pO2 at Pt Temp 72 L ABG HCO3 38 H ABG Base Excess (Actual) 12.0 VBG pH VBG pCO2 VBG pO2 VBG HCO3 VBG O2 Saturation VBG Base Excess Sodium Potassium Chloride Carbon Dioxide Anion Gap BUN Creatinine Estim Creat Clear Calc Estimated GFR POC Glucose 100 111 Random Glucose Calcium Ammonia 09/09/23 09/09/23 09/09/23 17:04 18:46 21:22 WBC RBC Hgb Hct MCV MCH MCHC RDW Plt Count MPV Absolute Nucleated RBC Nucleated RBC % (auto) O2 Saturation ABG pH at Pt Temp ABG pCO2 at Pt Temp ABG pO2 at Pt Temp ABG HCO3 ABG Base Excess (Actual) VBG pH VBG pCO2 VBG pO2 VBG HCO3 VBG O2 Saturation VBG Base Excess Sodium Potassium Chloride Carbon Dioxide Anion Gap BUN Creatinine Estim Creat Clear Calc Estimated GFR POC Glucose 98 107 102 Random Glucose Calcium Ammonia 09/10/23 09/10/23 09/10/23 03:10 08:35 08:37 WBC 9.7 RBC 4.12 L Hgb 12.7 Hct 39.7 MCV 96.4 MCH 30.8 MCHC 32.0 RDW 15.1 Plt Count 279 D MPV 10.0 Absolute Nucleated RBC 0.000 Nucleated RBC % (auto) 0.0 O2 Saturation ABG pH at Pt Temp ABG pCO2 at Pt Temp ABG pO2 at Pt Temp ABG HCO3 ABG Base Excess (Actual) VBG pH 7.58 H VBG pCO2 47 VBG pO2 127 VBG HCO3 45 H VBG O2 Saturation 99.0 VBG Base Excess 20.5 Sodium 143 Potassium 3.0 L Chloride 94 L Carbon Dioxide 35 H Anion Gap 17 BUN 10 Creatinine 0.67 Estim Creat Clear Calc 100.2 Estimated GFR > 60 POC Glucose 96 Random Glucose 104 Calcium 9.1 Ammonia 39 Microbiology Microbiology Results: Microbiology 09/01/23 11:57 Blood - Venous Blood Culture - Final No growth after 5 days. 09/01/23 10:44 Blood - Venous Blood Culture - Final Enterococcus faecalis Coag negative Staphylococcus Review of Systems Review of Systems Yes Unobtainable due to mental condition and Unobtainable due to mental status Respiratory: Reports chest congestion and Reports cough Reports confusion Psychiatric: Reports confusion Physical Exam 2 Vital Signs: Vital Signs: Last Vital Signs Temp 97.3 F 09/10/23 07:04 Pulse 85 09/10/23 07:04 Resp 22 H 09/10/23 08:10 BP 110/62 09/10/23 07:04 Pulse Ox 93 09/10/23 07:04 O2 Del Method High Flow Nasal C annula 09/10/23 07:04 O2 Flow Rate 55 09/10/23 07:04 FiO2 60 09/10/23 07:04 BMI result Body Mass Index 33.9 Const: General: confusion Nutritional Appearance: obese O rientation/consciousness: confusion HEENT: Head: Yes normocephalic Eyes: Pupils: Equal, round and reactive pupils present Neck: Neck: Yes trachea midline and Yes supple Chest: Chest palpation & inspection: normal inspection of the chest Resp: Effort & Inspection: normal respiratory effort Auscultation: d iminished lung sounds Cardio: Rate: regular rate Rhythm: regular rhythm Heart sounds: no gallops, no murmurs and no rubs GI: Palpation (GI): Soft to palpation and Other GI palpation findings present ( Nontender) Auscultation: normal bowel sounds Skin: General skin exam: no rashes or lesions noted Neuro: General: confusion Cranial nerves: Yes Equal, round and reactive pupils present Extrem: General: No clubbing and No cyanosis Procedures Date of Service Date of Service: 09/10/23 Assessment and Plan Assessment and plan (1) Acute respiratory failure with hypoxia: Problem details: Status: Resolved (2) Aspiration pneumonia: Status: Resolved (3) Encephalopathy: Status: Acute (4) RABIA (obstructive sleep apnea): Status: Acute Plan Wean off HF as tolerated to keep pox>90% Diamox x 1 dose continue zosyn as per ID OOB to recliner diuresis as tolerated Will likely benefit from PAP therapy. Would benefit from a sleep study, ideally an inlab sleep study Time Spent With Patient Time: Total time managing care of this patient today ____ minutes. Progress Note: Quality Stroke Does the patient have a stroke diagnosis?: No
[2023-09-10 09:14] LABS: Glucose, Whole Blood 106 mg/dL (60-115)
--- NOTE | 2023-09-10 10:35 | MHC.CLN ---
RE: CONSULT PT EXTUBATED ON 09/05 PT REFUSING TO EAT WITH POOR PO X 3 DAYS PT IS CONFUSED, DIFFICULT TO UNDERSTAND AND LETHARGIC PER NSG GUITAR REPAIR TECHNICIAN RECOMMENDED NPO (09/08) R/T MENTAL STATUS CONSULT FOR PPN REVIEW LABS DISCUSSED WITH PHARMACY RECOMMEND PPN AT 45ML/HR TO PROVIDE 551KCALS, 108G DEXTROSE, 46G PROTEIN REPLETE LYTES NEEDED
[2023-09-10 11:15] LABS: Magnesium 1.4 mg/dL (1.6-2.6); Phosphorus 2.6 mg/dL (2.7-4.5)
[2023-09-10] MEDS: Magnesium Sulfate/H2O 2 GM/50 ML PIGGYBACK IV (11:57)
--- NOTE | 2023-09-10 12:10 | P.CONCA_ITS ---
History of Present Illness History of Present Illness Date of Service: 09/10/23 Requesting physician: Elizabeth Palma Consult reason: other (Hypoxemic respiratory failure) Chief complaint: cardiac arrest Narrative: I was consulted to see Jane in cardiology consultation today after being transferred from ICU where she was admitted with acute hypoxemic respiratory failure requiring respiratory support and subsequently during intubation having cardiac arrest resuscitated and subsequently having multiorgan failure including shock liver as well as acute kidney injury. Patient also developed some hypoxic encephalopathy. Over the hospital course has received about 14 L of positive balance as noted in the ICU note. Patient remained hypoxemic requiring high flow oxygen. Chest x-ray consistent with diffuse bilateral infiltrates which are improving gradually. Cardiology was consulted due to cardiac arrest as well as patient having hypoxemic respiratory failure and fluid overload with treatment and mildly elevated BNP. Echocardiogram did not show any significant wall motion abnormality with preserved LV ejection fraction with normal filling pressures. She has been started on Lasix drip. Has had a negative balance since yesterday of about 2800 cc. I will obtain the history at bedside with a certified staff interpreter. Patient denies any shortness of breath at current time. Somewhat confused not sure as to how long she has been at the hospital. Denies any chest pain. Denies any palpitations. Hemodynamically stable. Review of Systems 2 Constitutional: Constitutional: Reports no additional constitutional complaints Eyes: Eyes: Reports no additional eye complaints Cardiovascular: Cardiovascular: Reports no additional cardiovascular complaints Respiratory: Respiratory: Reports no additional respiratory complaints Gastrointestinal: Gastrointestinal: Reports no additional gastrointestinal complaints Genitourinary: Genitourinary: Reports no additional female genitourinary complaints [facility] Past Medical History Medical History Encephalopathy Erich lesion, chronic Low TSH level Episode of generalized weakness Positive fecal occult blood test GI bleed Insomnia Anemia Asthma RABIA (obstructive sleep apnea) Obesity Hypertension Thyroiditis Rheumatoid arthritis Hypothyroidism Depression Ulcer Family History Family History Other Cirrhosis Surgical History Surgical History Hx of colonoscopy History of esophagogastroduodenoscopy (EGD) Hx of hernia repair H/O lymph node biopsy Status post biopsy of uterine cervix History of appendectomy Social History Social History Household Members: Unknown / Unable to assess Housing: House Do you presently have visiting nurse or other home services: Yes ([employer]) Alcohol intake: never Comment: RN sitting at station outside pt's room Patient Tobacco Use Status: Never used Tobacco Use of substances other than those prescribed or required for medical reasons: Unable to respond Currently Displaying Signs/Symptoms of Drug Intoxication Withdrawal: No Advance Directives: Yes Advance Directives on File: Yes Advance Directives Date on File: 03/22/20 Nutrition Risks: No Nutritional Risk Patient : No : No service: No Current occupational status: disabled 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 Fluoxetine HCl (Fluoxetine Hcl 20 Mg Capsule) 40 mg PO DAILY [facility] Last Admin: 09/10/23 08:51 Dose: Not Given Glucose (Glucose Gel 15 Gm Gel..Gram.) 15 gm PO Q15M PRN; Protocol PRN Reason: per Hypoglycemia Standing Ord. Heparin Sodium (Porcine) (Heparin Sodium,Porcine 5,000 Unit/Ml Vial) 5,000 unit SUBCUT Q8H [facility] Last Admin: 09/10/23 08:51 Dose: 5,000 unit Hydroxychloroquine Sulfate (Hydroxychloroquine Sulfate 200 Mg Tablet) 200 mg PO DAILY [facility] Last Admin: 09/10/23 08:52 Dose: Not Given Piperacillin Sod/Tazobactam (Sod 3.375 gm/ Sodium Chloride) 50 mls @ 100 mls/hr IV Q6H [facility] Last Infusion: 09/10/23 09:30 Dose: Infused Furosemide 200 mg/ Sodium (Chloride) 100 mls @ 2.5 mls/hr IVCONT .Q24H [facility] Last Admin: 09/09/23 20:07 Dose: 5 mg/hr, 2.5 mls/hr Magnesium Sulfate (Magnesium Sulfate/H2o) 2 gm in 50 mls @ 25 mls/hr IV ONCE ONE Stop: 09/10/23 13:17 Last Admin: 09/10/23 11:57 Dose: 25 mls/hr Potassium Chloride (Potassium Chloride/H20) 10 meq in 100 mls @ 100 mls/hr IV Q1H [facility] Stop: 09/10/23 15:59 Insulin Human Lispro (Insulin Lispro 100 Unit/Ml 3 Ml Vial) 0 unit SUBCUT Q6H [facility]; Protocol Last Admin: 09/10/23 09:15 Dose: Not Given Methylprednisolone Sodium Succinate (Methylprednisolone Sod Succ 40 Mg/Ml Vial) 20 mg IVPUSH BID [facility] Last Admin: 09/10/23 08:50 Dose: 20 mg Morphine Sulfate (Morphine Sulfate 2 Mg/Ml Cartridge) 0.5 mg IVPUSH Q4H PRN; Protocol PRN Reason: Pain, Severe (Pain Scale 7-10) Last Admin: 09/08/23 20:35 Dose: 0.5 mg Pantoprazole Sodium (Pantoprazole Sodium 40 Mg/10 Ml Vial) 40 mg IVPUSH DAILY@0630 [facility] Last Admin: 09/10/23 05:40 Dose: 40 mg Prednisone (Prednisone 5 Mg Tablet) 5 mg PO DAILY [facility] Last Admin: 09/10/23 08:52 Dose: Not Given Sodium Biphosphate/Sodium Phosphate (Sodium Phosphate,[place]-Dibasic 133 Ml Enema) 133 ml ID ONCE PRN PRN Reason: Constipation Last Admin: 09/07/23 12:02 Dose: 133 ml Sucralfate (Sucralfate 1 Gm Tablet) 1 gm PO BID@0630,1630 [facility] Last Admin: 09/10/23 05:43 Dose: Not Given Home Medications Medication Instructions Recorded Confirmed Last Taken Type oxycodone 10 mg tablet 10 mg PO BID PRN Pain, Moderate 03/12/20 09/01/23 04/21/21 History pantoprazole 40 mg tablet,delayed 1 tab PO DAILY@0630 03/12/20 09/01/23 04/21/21 History release ferrous sulfate 325 mg (65 mg 1 tab PO DAILY 01/03/21 09/01/23 04/21/21 History iron) tablet hydroxychloroquine 200 mg tablet 1 tab PO DAILY 01/03/21 09/01/23 04/21/21 History prednisone 5 mg tablet 1 tab PO DAILY 01/03/21 09/01/23 04/21/21 History fluoxetine 40 mg capsule 1 cap PO DAILY 04/22/21 09/01/23 04/21/21 History gabapentin 300 mg capsule 300 mg PO BEDTIME 09/01/23 09/01/23 Unknown History Physical Exam 2 Vital Signs: Vital Signs: Last Vital Signs Temp 96.9 F 09/10/23 11:00 Pulse 87 09/10/23 11:00 Resp 16 09/10/23 11:41 BP 109/67 09/10/23 11:00 Pulse Ox 97 09/10/23 11:00 O2 Del Method High Flow Nasal C annula 09/10/23 11:00 O2 Flow Rate 55 09/10/23 11:00 FiO2 70 09/10/23 11:00 BMI result Body Mass Index 33.9 Const: General: cooperative, comfortable, alert and awake Nutritional Appearance: obese HEENT: Head: Yes normocephalic and Yes atraumatic Neck: Neck: Yes trachea midline, Yes supple and Yes no JVD Resp: Effort & Inspection: decreased respiratory effort Auscultation: no crackles, no wheezes and diminished lung sounds Cardio: Jugular venous distension: no JVD Palpation: normal PMI Rate: r egular rate Rhythm: regular rhythm Heart sounds: S1 normal heart sound present, S2 normal heart sound present, no click, no gallops and no murmurs GI: Auscultation: normal bowel sounds Skin: General skin exam: no rashes or lesions noted Neuro: General: no focal motor deficits Extrem: General: Yes no clubbing, cyanosis or edema Objective Labs and Meds 09/10/23 08:35 09/10/23 08:35 Lab results: Laboratory Results - last 24 hr 09/09/23 09/09/23 09/09/23 11:55 15:27 15:44 WBC RBC Hgb Hct MCV MCH MCHC RDW Plt Count MPV Absolute Nucleated RBC Nucleated RBC % (auto) O2 Saturation 95.0 ABG pH at Pt Temp 7.44 ABG pCO2 at Pt Temp 54 H ABG pO2 at Pt Temp 72 L ABG HCO3 38 H ABG Base Excess (Actual) 12.0 VBG pH VBG pCO2 VBG pO2 VBG HCO3 VBG O2 Saturation VBG Base Excess Sodium 142 Potassium 3.6 Chloride 101 Carbon Dioxide 30 H Anion Gap 15 BUN 8 L Creatinine 0.61 Estim Creat Clear Calc 119.9 Estimated GFR > 60 POC Glucose 100 Random Glucose 113 Calcium 8.7 Phosphorus Magnesium Ammonia 09/09/23 09/09/23 09/09/23 15:47 17:04 18:46 WBC RBC Hgb Hct MCV MCH MCHC RDW Plt Count MPV Absolute Nucleated RBC Nucleated RBC % (auto) O2 Saturation ABG pH at Pt Temp ABG pCO2 at Pt Temp ABG pO2 at Pt Temp ABG HCO3 ABG Base Excess (Actual) VBG pH VBG pCO2 VBG pO2 VBG HCO3 VBG O2 Saturation VBG Base Excess Sodium Potassium Chloride Carbon Dioxide Anion Gap BUN Creatinine Estim Creat Clear Calc Estimated GFR POC Glucose 111 98 107 Random Glucose Calcium Phosphorus Magnesium Ammonia 09/09/23 09/10/23 09/10/23 21:22 03:10 08:35 WBC 9.7 RBC 4.12 L Hgb 12.7 Hct 39.7 MCV 96.4 MCH 30.8 MCHC 32.0 RDW 15.1 Plt Count 279 D MPV 10.0 Absolute Nucleated RBC 0.000 Nucleated RBC % (auto) 0.0 O2 Saturation ABG pH at Pt Temp ABG pCO2 at Pt Temp ABG pO2 at Pt Temp ABG HCO3 ABG Base Excess (Actual) VBG pH VBG pCO2 VBG pO2 VBG HCO3 VBG O2 Saturation VBG Base Excess Sodium 143 Potassium 3.0 L Chloride 94 L Carbon Dioxide 35 H Anion Gap 17 BUN 10 Creatinine 0.67 Estim Creat Clear Calc 100.2 Estimated GFR > 60 POC Glucose 102 96 Random Glucose 104 Calcium 9.1 Phosphorus 2.6 L Magnesium 1.4 L* Ammonia 39 09/10/23 09/10/23 08:37 09:10 WBC RBC Hgb Hct MCV MCH MCHC RDW Plt Count MPV Absolute Nucleated RBC Nucleated RBC % (auto) O2 Saturation ABG pH at Pt Temp ABG pCO2 at Pt Temp ABG pO2 at Pt Temp ABG HCO3 ABG Base Excess (Actual) VBG pH 7.58 H VBG pCO2 47 VBG pO2 127 VBG HCO3 45 H VBG O2 Saturation 99.0 VBG Base Excess 20.5 Sodium Potassium Chloride Carbon Dioxide Anion Gap BUN Creatinine Estim Creat Clear Calc Estimated GFR POC Glucose 106 Random Glucose Calcium Phosphorus Magnesium Ammonia Conclusions: - Normal left ventricular size, thickness, and systolic function. The visually estimated ejection fraction is between 55-60%. There is no evidence of regional wall motion abnormalities. Diastolic function is normal for age. - Normal right ventricular cavity size and systolic function. - There is mild dilatation of the ascending aorta measuring 3.50 cm. EKG on admission showed normal sinus rhythm with nonspecific ST T wave changes. No repeat EKGs since then Assessment and Plan (1) Acute hypoxic respiratory failure: Status: Acute Acute hypoxemic respiratory failure in this middle-aged woman of unclear etiology question ARDS. Clinically does appear to be in florid CHF although BNP is mildly elevated but downtrending and has received 14 L of fluids for resuscitation and support. Clinically does appear to be in marked congestive heart failure with significant fluid overload. I do not think she requires Lasix drip. Will switch her to gentle diuresis 20 mg b.i.d.. Strict intake and output chart needs to be pursued. Continue monitor renal function. Can trend BNP. Echocardiogram shows no clear cardiac pathology to explain her acute hypoxemic respiratory failure before and currently. Cardiac arrest most likely due to acute hypoxemic respiratory failure. At this point time will sign of the case. Will follow if need be. Thank you for allowing me to partake in her care Procedures Date of Service Date of Service: 09/10/23
[2023-09-10] MEDS: Potassium Chloride/H20 10 MEQ/100 ML PIGGYBACK 100 MEQ IV ×4 (12:46→16:07)
--- NOTE | 2023-09-10 14:40 | P.PNIM_ITS ---
Subjective Subjective Date of Service: 09/10/23 Interval History: sob ,confusion Review of Systems sob somewhat improving ,also high flow demand decreasing menatal status also somewhat improving seen by swallow -willadd diet . no fever Physical Exam 2 Vital Signs: Vital Signs: Last Vital Signs Temp 96.9 F 09/10/23 11:00 Pulse 87 09/10/23 11:00 Resp 16 09/10/23 11:41 BP 109/67 09/10/23 11:00 Pulse Ox 97 09/10/23 11:00 O2 Del Method High Flow Nasal C annula 09/10/23 11:00 O2 Flow Rate 55 09/10/23 11:00 FiO2 70 09/10/23 11:00 BMI result Body Mass Index 33.9 Appearance: Alert.? Oriented X1, could able to say name ,look more awake ,could able to recognise daytime with ridirection. cvs: rrr, [id number] . res: air entry dimisnhed ,few scattered cracles at bases. abd: no rebound or guarding ,nt, bs present. ext pulses present , no cyanosis,mild swellin . neuro: axo3 , nonfocal. Objective Data Active Medications Dextrose (Dextrose 50 % 25 Gm/50 Ml Syringe) 25 gm IVPUSH Q15M PRN; Protocol PRN Reason: per Hypoglycemia Standing Ord. Fluoxetine HCl (Fluoxetine Hcl 20 Mg Capsule) 40 mg PO DAILY [facility] Last Admin: 09/10/23 08:51 Dose: Not Given Documented By: MELODY Non-Admin Reason: patient NPO Glucose (Glucose Gel 15 Gm Gel..Gram.) 15 gm PO Q15M PRN; Protocol PRN Reason: per Hypoglycemia Standing Ord. Heparin Sodium (Porcine) (Heparin Sodium,Porcine 5,000 Unit/Ml Vial) 5,000 unit SUBCUT Q8H [facility] Last Admin: 09/10/23 08:51 Dose: 5,000 unit Documented By: MELODY Hydroxychloroquine Sulfate (Hydroxychloroquine Sulfate 200 Mg Tablet) 200 mg PO DAILY [facility] Last Admin: 09/10/23 08:52 Dose: Not Given Documented By: MELODY Non-Admin Reason: Patient NPO Piperacillin Sod/Tazobactam (Sod 3.375 gm/ Sodium Chloride) 50 mls @ 100 mls/hr IV Q6H [facility] Last Admin: 09/10/23 13:54 Dose: 100 mls/hr Documented By: MELODY Furosemide 200 mg/ Sodium (Chloride) 100 mls @ 2.5 mls/hr IVCONT .Q24H [facility] Last Admin: 09/09/23 20:07 Dose: 5 mg/hr, 2.5 mls/hr Documented By: DMITRY Potassium Chloride (Potassium Chloride/H20) 10 meq in 100 mls @ 100 mls/hr IV Q1H [facility] Stop: 09/10/23 15:59 Last Admin: 09/10/23 13:54 Dose: 100 mls/hr Documented By: MELODY Nutrition (Parenteral) (Parenteral Nutrition) 1,080 mls @ 45 mls/hr IV .Q24H [facility]; Protocol Stop: 09/11/23 20:59 Insulin Human Lispro (Insulin Lispro 100 Unit/Ml 3 Ml Vial) 0 unit SUBCUT Q6H [facility]; Protocol Last Admin: 09/10/23 09:15 Dose: Not Given Documented By: MELODY Non-Admin Reason: No Insulin Coverage Methylprednisolone Sodium Succinate (Methylprednisolone Sod Succ 40 Mg/Ml Vial) 20 mg IVPUSH BID [facility] Last Admin: 09/10/23 08:50 Dose: 20 mg Documented By: MELODY Morphine Sulfate (Morphine Sulfate 2 Mg/Ml Cartridge) 0.5 mg IVPUSH Q4H PRN; Protocol PRN Reason: Pain, Severe (Pain Scale 7-10) Last Admin: 09/08/23 20:35 Dose: 0.5 mg Documented By: ESTEBAN Pharmacy Consult (Consult Rx Parenteral Nutrition Ordering) 1 each MISCELLANE DAILY PRN PRN Reason: Consult order Prednisone (Prednisone 5 Mg Tablet) 5 mg PO DAILY [facility] Last Admin: 09/10/23 08:52 Dose: Not Given Documented By: MELODY Non-Admin Reason: Patient NPO Sodium Biphosphate/Sodium Phosphate (Sodium Phosphate,[place]-Dibasic 133 Ml Enema) 133 ml ME ONCE PRN PRN Reason: Constipation Last Admin: 09/07/23 12:02 Dose: 133 ml Documented By: JULIA Sucralfate (Sucralfate 1 Gm Tablet) 1 gm PO BID@0630,1630 [facility] Last Admin: 09/10/23 05:43 Dose: Not Given Documented By: DMITRY Non-Admin Reason: NPO Labs 09/10/23 08:35 09/10/23 08:35 Labs: Laboratory Results - last 24 hr 09/09/23 09/09/23 09/09/23 15:27 15:44 15:47 MCV MCH MCHC RDW Plt Count MPV Absolute Nucleated RBC Nucleated RBC % (auto) O2 Saturation 95.0 ABG pH at Pt Temp 7.44 ABG pCO2 at Pt Temp 54 H ABG pO2 at Pt Temp 72 L ABG HCO3 38 H ABG Base Excess (Actual) 12.0 VBG pH VBG pCO2 VBG pO2 VBG HCO3 VBG O2 Saturation VBG Base Excess Anion Gap Estim Creat Clear Calc Estimated GFR POC Glucose 100 111 Random Glucose Calcium Phosphorus Magnesium Ammonia 09/09/23 09/09/23 09/09/23 17:04 18:46 21:22 MCV MCH MCHC RDW Plt Count MPV Absolute Nucleated RBC Nucleated RBC % (auto) O2 Saturation ABG pH at Pt Temp ABG pCO2 at Pt Temp ABG pO2 at Pt Temp ABG HCO3 ABG Base Excess (Actual) VBG pH VBG pCO2 VBG pO2 VBG HCO3 VBG O2 Saturation VBG Base Excess Anion Gap Estim Creat Clear Calc Estimated GFR POC Glucose 98 107 102 Random Glucose Calcium Phosphorus Magnesium Ammonia 09/10/23 09/10/23 09/10/23 03:10 08:35 08:37 MCV 96.4 MCH 30.8 MCHC 32.0 RDW 15.1 Plt Count 279 D MPV 10.0 Absolute Nucleated RBC 0.000 Nucleated RBC % (auto) 0.0 O2 Saturation ABG pH at Pt Temp ABG pCO2 at Pt Temp ABG pO2 at Pt Temp ABG HCO3 ABG Base Excess (Actual) VBG pH 7.58 H VBG pCO2 47 VBG pO2 127 VBG HCO3 45 H VBG O2 Saturation 99.0 VBG Base Excess 20.5 Anion Gap 17 Estim Creat Clear Calc 100.2 Estimated GFR > 60 POC Glucose 96 Random Glucose 104 Calcium 9.1 Phosphorus 2.6 L Magnesium 1.4 L* Ammonia 39 09/10/23 09:10 MCV MCH MCHC RDW Plt Count MPV Absolute Nucleated RBC Nucleated RBC % (auto) O2 Saturation ABG pH at Pt Temp ABG pCO2 at Pt Temp ABG pO2 at Pt Temp ABG HCO3 ABG Base Excess (Actual) VBG pH VBG pCO2 VBG pO2 VBG HCO3 VBG O2 Saturation VBG Base Excess Anion Gap Estim Creat Clear Calc Estimated GFR POC Glucose 106 Random Glucose Calcium Phosphorus Magnesium Ammonia Assessment and Plan (1) Encephalopathy: Status: Acute Plan As per chart review: 62-year-old female, obese, with rheumatoid arthritis on methotrexate (MTX), hypertension, and hypothyroidism, has been in the ICU since 08/31. She was brought to the emergency department in an unresponsive state, hypoxic/cyanotic, with an undetectable blood pressure and oxygen saturation in the 70s. She experienced cardiac arrest during the intubation process but regained return of spontaneous circulation (ROSC) following 2 rounds of CPR. The patient's ICU course has been complicated by hypovelemic shock, shocked liver, and acute tubular necrosis (ATN) due to renal hypoperfusion from profound hypotension. Although clinically she may have had anoxic encephalopathy, this has not been demonstrated on MRI. She was successfully extubated on 09/05 and maintains oxygen saturation, breathing comfortably on her own. She has been on Zosyn since 08/31 for suspected aspiration pneumonia. She remains fairly confused, although able to answer yes/no questions. She is NPO and will require a formal swallow evaluation before feeding. Acute hypoxic respiratory failure-multifcatorial -suspected d/t aspiration, intubated from 08/31 to and fluid overload, CXR showed peristent multifocal infiltrate abd seems fine (ph7.58 /47/127) Patient seen by ICu yesterday: ammonia levels fine ,abg also reassuring echo (09/02): ef 55-60% i/o:28/17.5 since yesterday 2.5 diuresis sob somewhat improving plan: continue high flow , lasix drip,zosyn (08/31), solumedrol, moniter i/o,electrolytes ,cardiology eval. d/w ICu-recomeneded to continue iv diuresis for today. Aspiration pneumonia--Zosyn since 08/31, once able to eat, will change to PO Augmentin for 7 to 10 days Enterococcus bacteremia from 08/31 culture--continue Zosyn and when eating then Augment Hypovolemia shock not --resucitated with IVF, resolved. ATN--d/t Hypovolemia/shock--resolved, Creatine back to baseline Anoxic encephalopathy-- not demonstrated on MRI menatal status somewhat improving Dysphagia--Speech recommended chopped /advanced diet/thinliquids Hypoglycemia : improving start diet,ppn RA--once able to take by mouth. Was on Methotraxate on Mondays, restart, and restart Prednisone if able to take oral Acute hepatitis d/t shocked liver--LFTs trending down Hypomagnesemia/hypokalemia : Replacements ordered IV. Obesity--should work on weight loss DVT prophylaxis-s/cHeparin Ongoing hospitalization need-multiple issues: Acute hypoxemic respiratory failure secondary to possible pneumonia/fluid overload on high-flow oxygen, IV diuretics and antibiotics, need mental status monitoring for encephalopathy, also multiple electrolytic abnormalities need repletion and electrolyte monitoring. Quality Stroke Does the patient have a stroke diagnosis?: No VTE Prior VTE?: No VTE Risk Level:: Medical - moderate - high VTE Device Contraindication: N/A - Device Ordered VTE Drug Contraindication: N/A - Med Ordered
--- NOTE | 2023-09-10 14:52 | MHC.SL.DTX ---
Dysphagia Diet modifications: Last documented Liquid consistency: NPO Changes made to current diet?: Yes Liquid Consistency and Strategies: Liquid Intake Recommendation: Thin Compensatory Strategies for Safe Swallow: Unrestricted Compensatory Strategies for Safe Swallow(b): Sitting Upright (90 deg) No Straw Liquids from Cup Small Bites and Sips Alternate Liquids/Solids Rate of Ingestion Change Avoid Specific Foods Solid Food Consistency: Dietary Recommendations: Chopped/Advanced (NDD3) Additional Modifications to Solids: Recommending Chopped/Advanced Solids (NDD3) and Thin Liquids. Meds Whole with Puree. She is 1:1 feed at this time d/t decreased arm mobility. Recommend Respiratory be able to bring her down to 30L HFNC for all PO. She is currently NPO. Oral Medication Intake: Whole with Puree Strategies and Precautions to be Taken for Safe Swallow: Sitting Upright (90 deg) No Straw Liquids from Cup Small Bites and Sips Alternate Liquids/Solids Rate of Ingestion Change Avoid Specific Foods Supervision While Eating and/Drinking: Total Assistance (1:1) Foods to Avoid: Mixed consistencies, difficult to chew solids. Swallowing Recommended Treatments: Compens. Strategy Educat. Level of Impact on: Daily activities: Interpersonal interactions: Education: Employment: Community: Prognosis for Improvement: Recommendation for Speech: Treatment: Per RN, she was unresponsive yesterday and [employer]ACHINIST [employer] deemed her inappropriate for PO. She has bounced back today and is following commands and communicating her wants and needs. She was initially approached with Maltese commands and did not follow any. She is able to communicate in [place], however. Pt was on 55L HFNC and titrated down to 30L by RT prior to swallow trials. She is repositioned upright. She tolerated Thin Liquids via Ice Chips, Spoon and Straw Sips with no overt s/s of aspiration. She requested Cranberry Juice, which she finished with consecutive sips via straw with no overt s/s of aspiration. She tolerated Puree, Ground/Mech, and Chopped/Advanced Solids with adequate oral preparation and no overt s/s of aspiration. Regular solids not attempted on this date d/t risk of airway compromise and O2 requirements. RT notified after treatment, at which time he brought her back up to 40L Flow Rate. MD, RN, and RD notified of updated recommendations. Product Development Assistant Clinican/Clinical Fellow: No Supervisory Statement: I have reviewed and agree with the student/clinical fellow's documentation: N/A Speech Language Pathologist: Nehemias Dupont M.A., [facility] [employer]
[2023-09-10] MEDS: Sucralfate 1 GM TABLET PO (15:08)
[2023-09-10] MEDS: Insulin Lispro 100 UNIT/ML 3 ML VIAL SUBCUT ×2 (15:08→20:36)
[2023-09-10] MEDS: acetaZOLAMIDE 250 MG TABLET PO (15:08)
[2023-09-10 15:14] LABS: Glucose, Whole Blood 192 mg/dL (60-115)
[2023-09-10] MEDS: Furosemide 200 MG in 0.9 % Sodium Chloride 80 ML IVCONT (20:10)
[2023-09-10] MEDS: Parenteral Nutrition 1,080 ML 45 ML IV (20:27)
[2023-09-10 20:54] LABS: Glucose, Whole Blood 166 mg/dL (60-115)
[2023-09-11] VITALS (11 sets, daily range): BP systolic 114–140; BP diastolic 61–91; PULSE 60–75; RESP 18–22; TEMP 36.1–36.4; O2SAT 93–97; BMI 36.7
[2023-09-11 02:56] LABS: Glucose, Whole Blood 192 mg/dL (60-115)
[2023-09-11] MEDS: Insulin Lispro 100 UNIT/ML 3 ML VIAL SUBCUT ×4 (02:56→21:48)
[2023-09-11] MEDS: Heparin Sodium,Porcine 5,000 UNIT/ML VIAL 5000 UNIT SUBCUT ×3 (02:57→16:09)
[2023-09-11] MEDS: Piperacillin Sodium/Tazobactam 3.375 GM in 0.9 % Sodium Chloride 50 ML IV ×4 (02:57→20:12)
[2023-09-11] MEDS: Sucralfate 1 GM TABLET PO ×2 (06:21→16:09)
[2023-09-11 06:38] LABS: Hemoglobin 11.9 g/dl (12.0-16.0); Mean Corpuscular HGB Conc 32.2 g/dl (31.0-35.0); Mean Corpuscular Hemoglobin 30.7 pg (27.0-33.0); Mean Corpuscular Volume 95.4 fL (80.0-98.0); Platelet Count 340 X10*3/uL (160-400); Red Blood Count 3.88 X10*6/uL (4.20-5.50); Red Cell Distribution Width 14.6 % (11.0-16.0); White Blood Count 8.9 X10*3/uL (4.8-10.8)
[2023-09-11 06:47] LABS: Anion Gap 13 (12-20); Blood Urea Nitrogen 19 mg/dL (9-16); Calcium 9.6 mg/dL (8.4-10.2); Carbon Dioxide 34 mmol/L (22-29); Chloride 96 mmol/L (96-108); Estimated Glomerular Filt Rate > 60; Glucose Random 178 mg/dL (60-115); Magnesium 2.2 mg/dL (1.6-2.6); Potassium 3.6 mmol/L (3.3-5.1); Sodium 139 mmol/L (135-145)
[2023-09-11 07:19] LABS: Glucose, Whole Blood 185 mg/dL (60-115)
[2023-09-11 07:42] LABS: Phosphorus 2.7 mg/dL (2.7-4.5)
[2023-09-11] MEDS: methylPREDNISolone Sod Succ 40 MG/ML VIAL 20 MG IVPUSH ×2 (10:18→20:05)
[2023-09-11] MEDS: Hydroxychloroquine Sulfate 200 MG TABLET PO (10:18)
[2023-09-11] MEDS: predniSONE 5 MG TABLET PO (10:18)
[2023-09-11] MEDS: FLUoxetine HCl 20 MG CAPSULE 40 MG PO (10:18)
--- NOTE | 2023-09-11 10:20 | MHC.CLN ---
F/U PT CONTINUES WITH POOR PO DIET ADVANCED TO CHOPPED PER CEMETERY LABORER PT RECEIVED PPN YESTERDAY; PPN AT 45ML/HR PROVIDED 551KCALS, 108G DEXTROSE, 46G PROTEIN REVIEWED LABS-UNREMARKABLE DISCUSSED WITH PHARMACY RECOMMEND INCREASING PPN TO 65ML/HR TO PROVIDE 796KCALS, 156G DEXTROSE, 66G PROTEIN REPLETE LYTES NEEDED MONITOR PO INTAKE CLOSELY; WILL D/C PPN WHEN PO INTAKE ADEQUATE
[2023-09-11 11:28] LABS: VBG Base Excess 9.6 mmol/L; VBG HCO3 34 mmol/L (22-26); VBG pCO2 48 mmHg; VBG pH 7.46 (7.32-7.43); VBG pO2 75 mmHg
[2023-09-11 11:28] LABS: Venous Blood Gas Refer to POC result
--- NOTE | 2023-09-11 12:18 | MHC.CM.PN ---
MOO called Iam Machuca, protective services case packer and sealer working with this pt. He said that the pt. was found in the home in very poor circumstances, she was dirty with urine, feces and dried vomit, the home was dirty and infested with roaches, and the back door was blocked. He asked if pt has had a capacity eval to determine if HCP should be invoked. CM will let provider know this. CM faxed HCP that we have on file to Iam at [facility]. CM will follow for DC plan. At this time, PT eval rec LTC and OT eval rec STR.
--- NOTE | 2023-09-11 13:44 | MHC.SL.SWA ---
Speech Pathologist Impression: Risk of aspiration Risk of Aspiration Due to: Medically Fragile Dysphasia Diet Status: CHOPPED/ADVANCED and THIN Liquid Consistency and Strategies for Safe Swallow: Liquid Intake Recommendation: Thin Liquid Intake Strategies: Unrestricted Solid Food Consistency: Dietary Recommendations: Chopped/Advanced (NDD3) Oral Medication Intake: Whole with Puree Please contact the pharmacy regarding appropriate crushable or liquid drug formulations that are available whenever modified delivery is recommended. Compensatory Strategies and Precautions to be Taken for Safe Swallow: Sitting Upright (90 deg) Small Bites and Sips Alternate Liquids/Solids Rate of Ingestion Change Supervision While Eating and Drinking for Safe Swallow: Total Supervision (1:1) Foods to Avoid: Mixed consistencies, difficult to chew solids. Swallowing Recommended Treatments: Compens. Strategy Educat. Recommendation for Speech: Comment: Recommend patient continue w/ Chopped/Advanced Solids (NDD3) and Thin Liquids. Meds Whole with Puree. Requires 1:1 SUPERVISION for ALL PO. Supervision required to provide assistance w/ tray as needed, ensure proper positioning in bed, and provide cueing for safe eating strategies. Ensure that is positioned in bed as close to 90 degrees as possible. 45 degrees at minimum, but more preferably closer to at least 70 degrees. PATIENT SHOULD NOT BE LYING DOWN WHILE EATING/DRINKING. This is a risk of aspiration. Cues for safe eating include alternating liquids and solids, not talking w/ food in mouth, and swallowing one bite before introducing the next. Entry Level Installation Technician Clinican/Clinical Fellow: No Supervisory Statement: I have reviewed and agree with the student/clinical fellow's documentation: N/A Speech Language Pathologist: Nancy Palacio M.A., CCC-EXTRACTION SUPERVISOR
--- NOTE | 2023-09-11 13:54 | MHC.CM.PN ---
[facility] chrome worker is: Iam Machuca, ph. [phone] x [phone], fax [phone], has requested a competency eval, provider aware. Eler affairs officer Greg, ph: [phone] after 3pm. He would like to speak to pt. when she is able to interview her due to a neglect report that was filed.
--- NOTE | 2023-09-11 14:19 | PM.PSYCN ---
History of Present Illness Date of Service: 09/11/2023 Chief Complaint: cardiac arrest Reason for Consult: competency eval Requesting physician: Elizabeth Palma Discussed with referring provider: Yes Sources of Information: patient interviewed and chart reviewed Additional Sources of Information: nursing staff HPI Narrative: This 62-year-old primarily Turkmen-speaking female was seen today with hospital approved toaster element repairer for evaluation of competency. Patient is a 62-year-old female with rheumatoid arthritis on methotrexate hypertension hypothyroidism who was in the ICU on 08/31 after being brought to the emergency department unresponsive and and hypoxic cyanotic state. Upon admission on 08/31 she had an undetectable blood pressure and an oxygen saturation in the 70s. She experienced cardiac arrest during intubation but regained return of spontaneous circulation (ROSC) following 2 rounds of CPR. The patient's ICU course was complicated by hypovelemic shock, shocked liver, and acute tubular necrosis (ATN) due to renal hypoperfusion from profound hypotension. Although clinically she may have had anoxic encephalopathy, this has not been demonstrated on MRI. She was successfully extubated on 09/05 and maintains oxygen saturation, breathing comfortably on her own. She has been on Zosyn since 08/31 for suspected aspiration pneumonia. Today the patient is oriented to person and situation. She knows that she is at [facility]. She stated the date was September 04 2023. When asked what the season was she initially said it is bunny season and then was able to say it is near Easter. She knew her address she knew her daughter Aliyah had been with her she also spontaneously offered her phone number for me to call her for more and in information in the future she stated [phone] with effort (that is correct according to her chart demographics.) Patient knew that she was in the hospital and receiving antibiotics. She understood that she needed to be in the hospital to continue to recover. She stated she had 2 heart attacks. She states she does not know what happened at home. She stated ?she lost her life and then woke up here. She began to cry she was very distressed she said her children were trying to find her she blames herself for scaring them. The more she talked about the medical event the more disorganized she became. She spontaneously told me that she went to [employer] in [place] and that she has 5 brothers all older who live in [place]. Due to the level of distress the interview was cut short and she was encouraged to rest. Encouraged not to blame herself. Past Psychiatric History: on prozac from pcp per pt Medical Evaluation Reviewed: Yes Personal & Social History: lives alone has children who are supportive Review of Systems Review of Systems sob somewhat improving ,also high flow demand decreasing menatal status also somewhat improving seen by swallow -willadd diet . no fever Yes unobtainable due to endotracheal tube, Unobtainable due to mental condition and Unobtainable due to mental status Constitutional: Reports no additional constitutional complaints Eyes: Reports no additional eye complaints Cardiovascular: Reports no additional cardiovascular complaints Respiratory: Reports no additional respiratory complaints, Reports chest congestion and Reports cough Gastrointestinal: Reports no additional gastrointestinal complaints Reports confusion Psychiatric: Reports confusion [facility] Medical History (Updated 09/12/23 @ 09:30 by Eden Bernardo APRN) Encephalopathy Erich lesion, chronic Low TSH level Episode of generalized weakness Positive fecal occult blood test GI bleed Insomnia Anemia Asthma RABIA (obstructive sleep apnea) Obesity Hypertension Thyroiditis Rheumatoid arthritis Hypothyroidism Depression Ulcer Surgical History Hx of colonoscopy History of esophagogastroduodenoscopy (EGD) Hx of hernia repair H/O lymph node biopsy Status post biopsy of uterine cervix History of appendectomy Family History: grew up in [place] with five brother Social History: lives alone - has children who are supportive Substance History: denies Trauma History: recent medical event Diagnostics Vital Signs (24Hr): Vital Signs - 24 hr 09/10/23 15:07 09/10/23 15:31 09/10/23 19:45 Temperature 97.4 F 98.6 F Pulse Rate 78 78 Respiratory Rate 20 18 18 Blood Pressure 108/58 L 131/73 Pulse Oximetry 93 94 Oxygen Delivery Method High Flow Nasal Cannula High Flow Nasal Cannula Oxygen Flow Rate 30 40 Fraction of Inspired Oxygen 60 40 09/10/23 20:12 09/10/23 23:26 09/11/23 00:22 Temperature 98.3 F Pulse Rate 69 Respiratory Rate 18 18 18 Blood Pressure 137/85 Pulse Oximetry 97 Oxygen Delivery Method High Flow Nasal Cannula Oxygen Flow Rate 40 Fraction of Inspired Oxygen 58 09/11/23 03:01 09/11/23 04:51 09/11/23 06:51 Temperature 97.2 F 96.9 F Pulse Rate 60 61 Respiratory Rate 18 18 22 H Blood Pressure 140/91 H 120/61 Pulse Oximetry 93 97 Oxygen Delivery Method High Flow Nasal Cannula High Flow Nasal Cannula Oxygen Flow Rate 40 30 Fraction of Inspired Oxygen 45 45 09/11/23 07:47 09/11/23 11:06 Temperature 96.9 F Pulse Rate 67 Respiratory Rate 20 22 H Blood Pressure 132/72 Pulse Oximetry 94 Oxygen Delivery Method High Flow Nasal Cannula Oxygen Flow Rate 30 Fraction of Inspired Oxygen 45 BMI result Body Mass Index 36.7 Labs 09/11/23 05:56 09/11/23 05:56 Labs: Laboratory Results - last 48 hr 09/09/23 09/09/23 09/09/23 15:27 15:44 15:47 WBC RBC Hgb Hct MCV MCH MCHC RDW Plt Count MPV Absolute Nucleated RBC Nucleated RBC % (auto) O2 Saturation 95.0 ABG pH at Pt Temp 7.44 ABG pCO2 at Pt Temp 54 H ABG pO2 at Pt Temp 72 L ABG HCO3 38 H ABG Base Excess (Actual) 12.0 VBG pH VBG pCO2 VBG pO2 VBG HCO3 VBG O2 Saturation VBG Base Excess Sodium Potassium Chloride Carbon Dioxide Anion Gap BUN Creatinine Estim Creat Clear Calc Estimated GFR POC Glucose 100 111 Random Glucose Calcium Phosphorus Magnesium Ammonia 09/09/23 09/09/23 09/09/23 17:04 18:46 21:22 WBC RBC Hgb Hct MCV MCH MCHC RDW Plt Count MPV Absolute Nucleated RBC Nucleated RBC % (auto) O2 Saturation ABG pH at Pt Temp ABG pCO2 at Pt Temp ABG pO2 at Pt Temp ABG HCO3 ABG Base Excess (Actual) VBG pH VBG pCO2 VBG pO2 VBG HCO3 VBG O2 Saturation VBG Base Excess Sodium Potassium Chloride Carbon Dioxide Anion Gap BUN Creatinine Estim Creat Clear Calc Estimated GFR POC Glucose 98 107 102 Random Glucose Calcium Phosphorus Magnesium Ammonia 09/10/23 09/10/23 09/10/23 03:10 08:35 08:37 WBC 9.7 RBC 4.12 L Hgb 12.7 Hct 39.7 MCV 96.4 MCH 30.8 MCHC 32.0 RDW 15.1 Plt Count 279 D MPV 10.0 Absolute Nucleated RBC 0.000 Nucleated RBC % (auto) 0.0 O2 Saturation ABG pH at Pt Temp ABG pCO2 at Pt Temp ABG pO2 at Pt Temp ABG HCO3 ABG Base Excess (Actual) VBG pH 7.58 H VBG pCO2 47 VBG pO2 127 VBG HCO3 45 H VBG O2 Saturation 99.0 VBG Base Excess 20.5 Sodium 143 Potassium 3.0 L Chloride 94 L Carbon Dioxide 35 H Anion Gap 17 BUN 10 Creatinine 0.67 Estim Creat Clear Calc 100.2 Estimated GFR > 60 POC Glucose 96 Random Glucose 104 Calcium 9.1 Phosphorus 2.6 L Magnesium 1.4 L* Ammonia 39 09/10/23 09/10/23 09/10/23 09:10 15:04 20:31 WBC RBC Hgb Hct MCV MCH MCHC RDW Plt Count MPV Absolute Nucleated RBC Nucleated RBC % (auto) O2 Saturation ABG pH at Pt Temp ABG pCO2 at Pt Temp ABG pO2 at Pt Temp ABG HCO3 ABG Base Excess (Actual) VBG pH VBG pCO2 VBG pO2 VBG HCO3 VBG O2 Saturation VBG Base Excess Sodium Potassium Chloride Carbon Dioxide Anion Gap BUN Creatinine Estim Creat Clear Calc Estimated GFR POC Glucose 106 192 H 166 H Random Glucose Calcium Phosphorus Magnesium Ammonia 09/11/23 09/11/23 09/11/23 02:51 05:56 05:56 WBC 8.9 RBC 3.88 L Hgb 11.9 L Hct 37.0 MCV 95.4 MCH 30.7 MCHC 32.2 RDW 14.6 Plt Count 340 MPV 10.0 Absolute Nucleated RBC 0.000 Nucleated RBC % (auto) 0.0 O2 Saturation ABG pH at Pt Temp ABG pCO2 at Pt Temp ABG pO2 at Pt Temp ABG HCO3 ABG Base Excess (Actual) VBG pH VBG pCO2 VBG pO2 VBG HCO3 VBG O2 Saturation VBG Base Excess Sodium Cancelled 139 Potassium Cancelled Chloride Carbon Dioxide Anion Gap BUN Creatinine Estim Creat Clear Calc Estimated GFR POC Glucose 192 H Random Glucose Calcium Phosphorus Magnesium Ammonia 09/11/23 09/11/23 09/11/23 05:56 05:56 05:56 WBC RBC Hgb Hct MCV MCH MCHC RDW Plt Count MPV Absolute Nucleated RBC Nucleated RBC % (auto) O2 Saturation ABG pH at Pt Temp ABG pCO2 at Pt Temp ABG pO2 at Pt Temp ABG HCO3 ABG Base Excess (Actual) VBG pH VBG pCO2 VBG pO2 VBG HCO3 VBG O2 Saturation VBG Base Excess Sodium Potassium 3.6 Chloride Cancelled 96 Carbon Dioxide Cancelled 34 H Anion Gap Cancelled BUN Creatinine Estim Creat Clear Calc Estimated GFR POC Glucose Random Glucose Calcium Phosphorus Magnesium Ammonia 09/11/23 09/11/23 09/11/23 05:56 05:56 05:56 WBC RBC Hgb Hct MCV MCH MCHC RDW Plt Count MPV Absolute Nucleated RBC Nucleated RBC % (auto) O2 Saturation ABG pH at Pt Temp ABG pCO2 at Pt Temp ABG pO2 at Pt Temp ABG HCO3 ABG Base Excess (Actual) VBG pH VBG pCO2 VBG pO2 VBG HCO3 VBG O2 Saturation VBG Base Excess Sodium Potassium Chloride Carbon Dioxide Anion Gap 13 BUN Cancelled 19 H Creatinine Cancelled 0.77 Estim Creat Clear Calc Cancelled Estimated GFR POC Glucose Random Glucose Calcium Phosphorus Magnesium Ammonia 09/11/23 09/11/23 09/11/23 05:56 05:56 05:56 WBC RBC Hgb Hct MCV MCH MCHC RDW Plt Count MPV Absolute Nucleated RBC Nucleated RBC % (auto) O2 Saturation ABG pH at Pt Temp ABG pCO2 at Pt Temp ABG pO2 at Pt Temp ABG HCO3 ABG Base Excess (Actual) VBG pH VBG pCO2 VBG pO2 VBG HCO3 VBG O2 Saturation VBG Base Excess Sodium Potassium Chloride Carbon Dioxide Anion Gap BUN Creatinine Estim Creat Clear Calc 91.0 Estimated GFR Cancelled > 60 POC Glucose Random Glucose Cancelled 178 H Calcium Cancelled Phosphorus Magnesium Ammonia 09/11/23 09/11/23 09/11/23 05:56 06:56 11:21 WBC RBC Hgb Hct MCV MCH MCHC RDW Plt Count MPV Absolute Nucleated RBC Nucleated RBC % (auto) O2 Saturation ABG pH at Pt Temp ABG pCO2 at Pt Temp ABG pO2 at Pt Temp ABG HCO3 ABG Base Excess (Actual) VBG pH 7.46 H VBG pCO2 48 VBG pO2 75 VBG HCO3 34 H VBG O2 Saturation 94.0 VBG Base Excess 9.6 Sodium Potassium Chloride Carbon Dioxide Anion Gap BUN Creatinine Estim Creat Clear Calc Estimated GFR POC Glucose 185 H Random Glucose Calcium 9.6 Phosphorus 2.7 Magnesium 2.2 Ammonia Imaging Radiology Impressions: ITS Impressions Chest X-Ray 09/01/23 11:41 IMPRESSION: 1. Endotracheal tube approximately 4.2 cm from the level of the lena. 2. Enteric tube coursing below left hemidiaphragm into the stomach. 3. Bilateral low lung volumes. 4. Patchy radiopacities throughout the bilateral lung briceno potentially representing infectious/inflammatory etiology though vascular congestion not excluded. 5. Small left pleural effusion. Chest X-Ray 09/02/23 02:40 IMPRESSION: 1. Interval placement of left approach central line with tip at the mid SVC. No pneumothorax. 2. Low lung volumes with bilateral increased markings and patchy infiltrative change, similar to the previous study. Duplex Scan Lower Extremity Artery 09/02/23 03:25 IMPRESSION: Mild plaque noted within the right common femoral and popliteal artery. No evidence of hemodynamically significant stenosis. Brain MRI 09/05/23 13:11 IMPRESSION: 1. No acute intracranial abnormalities. 2. Mild underlying microangiopathy. Chronic lacunar infarct versus prominent perivascular space along the posterior aspect of the right lentiform nucleus. Chest X-Ray 09/09/23 00:18 IMPRESSION: Moderately extensive multifocal airspace opacities bilaterally, right greater than left. Appearance in the right lung has slightly improved compared to prior. Mental Status Exam Mental Status Exam Patient Appearance: Disheveled and Appropriate (in hospital gown ) Patient Orientation: Person, Place and Time (approximate date, knew year and season) Level of Consciousness: Awake Patient Behavior: Appropriate Mood Description: Anxious, Sad and Apprehensive Affect Description: Anxious, Labile, Sad and Apprehensive Patient Cognition Impaired: Yes Ability to Follow Directions: Fair Speech Pattern: Perseverating, Appropriate and Rambling Memory Description: Episodic Impaired Hallucinations: None Delusions: Not Present Thought Process: Distracted and Confusion (episodic) Thought Content: positive for Tangential and positive for Disorganized Judgement: Fair Medications Medications Current Medications Dextrose (Dextrose 50 % 25 Gm/50 Ml Syringe) 25 gm IVPUSH Q15M PRN; Protocol PRN Reason: per Hypoglycemia Standing Ord. Fluoxetine HCl (Fluoxetine Hcl 20 Mg Capsule) 40 mg PO DAILY HAILE Last Admin: 09/11/23 10:18 Dose: 40 mg Furosemide (Furosemide 20 Mg/2 Ml Vial) 20 mg IVPUSH Q12H HAILE; Protocol Glucose (Glucose Gel 15 Gm Gel..Gram.) 15 gm PO Q15M PRN; Protocol PRN Reason: per Hypoglycemia Standing Ord. Heparin Sodium (Porcine) (Heparin Sodium,Porcine 5,000 Unit/Ml Vial) 5,000 unit SUBCUT Q8H REPLACED BY [facility] Last Admin: 09/11/23 10:19 Dose: 5,000 unit Hydroxychloroquine Sulfate (Hydroxychloroquine Sulfate 200 Mg Tablet) 200 mg PO DAILY REPLACED BY [facility] Last Admin: 09/11/23 10:18 Dose: 200 mg Piperacillin Sod/Tazobactam (Sod 3.375 gm/ Sodium Chloride) 50 mls @ 100 mls/hr IV Q6H REPLACED BY [facility] Last Infusion: 09/11/23 11:16 Dose: Infused Nutrition (Parenteral) (Parenteral Nutrition) 1,080 mls @ 45 mls/hr IV .Q24H REPLACED BY [facility]; Protocol Stop: 09/11/23 20:59 Last Admin: 09/10/23 20:27 Dose: 45 mls/hr Nutrition (Parenteral) (Parenteral Nutrition) 1,560 mls @ 65 mls/hr IV .Q24H REPLACED BY [facility]; Protocol Stop: 09/12/23 20:59 Insulin Human Lispro (Insulin Lispro 100 Unit/Ml 3 Ml Vial) 0 unit SUBCUT Q6H REPLACED BY [facility]; Protocol Last Admin: 09/11/23 10:19 Dose: 2 unit Methylprednisolone Sodium Succinate (Methylprednisolone Sod Succ 40 Mg/Ml Vial) 20 mg IVPUSH BID REPLACED BY [facility] Last Admin: 09/11/23 10:18 Dose: 20 mg Morphine Sulfate (Morphine Sulfate 2 Mg/Ml Cartridge) 0.5 mg IVPUSH Q4H PRN; Protocol PRN Reason: Pain, Severe (Pain Scale 7-10) Last Admin: 09/08/23 20:35 Dose: 0.5 mg Pharmacy Consult (Consult Rx Parenteral Nutrition Ordering) 1 each MISCELLANE DAILY PRN PRN Reason: Consult order Prednisone (Prednisone 5 Mg Tablet) 5 mg PO DAILY REPLACED BY [facility] Last Admin: 09/11/23 10:18 Dose: 5 mg Sodium Biphosphate/Sodium Phosphate (Sodium Phosphate,Mclean-Dibasic 133 Ml Enema) 133 ml [place] ONCE PRN PRN Reason: Constipation Last Admin: 09/07/23 12:02 Dose: 133 ml Sucralfate (Sucralfate 1 Gm Tablet) 1 gm PO BID@0630,1630 REPLACED BY [facility] Last Admin: 09/11/23 06:21 Dose: 1 gm Allergies Allergies Allergy/AdvReac Type Severity Reaction Status Date / Time ibuprofen [From MOTRIN] Allergy Unknown ULCERS Verified 03/12/20 19:51 naproxen [From NAPROSYN] Allergy Unknown ULCERS Verified 03/12/20 19:51 Assessment & Plan Assessment & Plan (1) Encephalopathy: Status: Acute Code(s): G93.40 - Encephalopathy, unspecified (2) Acute stress reaction: Status: Acute Code(s): F43.0 - Acute stress reaction Assessment and Plan: recommend: encourage rest and recovery, when expresses self blame attemtp to reframe as not her fault; encourage /reassure her that her children are safe and they know where she is and she is being cared for. refocusing her on her recovery in very simple terms may reduce distress Plan As per chart review: 62-year-old female, obese, with rheumatoid arthritis on methotrexate (MTX), hypertension, and hypothyroidism, has been in the ICU since 08/31. She was brought to the emergency department in an unresponsive state, hypoxic/cyanotic, with an undetectable blood pressure and oxygen saturation in the 70s. She experienced cardiac arrest during the intubation process but regained return of spontaneous circulation (ROSC) following 2 rounds of CPR. The patient's ICU course has been complicated by hypovelemic shock, shocked liver, and acute tubular necrosis (ATN) due to renal hypoperfusion from profound hypotension. Although clinically she may have had anoxic encephalopathy, this has not been demonstrated on MRI. She was successfully extubated on 09/05 and maintains oxygen saturation, breathing comfortably on her own. She has been on Zosyn since 08/31 for suspected aspiration pneumonia. She remains fairly confused, although able to answer yes/no questions. She is NPO and will require a formal swallow evaluation before feeding. Acute hypoxic respiratory failure-multifcatorial -suspected d/t aspiration, intubated from 08/31 to and fluid overload, CXR showed peristent multifocal infiltrate abd seems fine (ph7.58 /47/127) Patient seen by ICu yesterday: ammonia levels fine ,abg also reassuring echo (09/02): ef 55-60% i/o:28/17.5 since yesterday 2.5 diuresis sob somewhat improving plan: continue high flow , lasix drip,zosyn (08/31), solumedrol, moniter i/o,electrolytes ,cardiology eval. d/w ICu-recomeneded to continue iv diuresis for today. Aspiration pneumonia--Zosyn since 08/31, once able to eat, will change to PO Augmentin for 7 to 10 days Enterococcus bacteremia from 08/31 culture--continue Zosyn and when eating then Augment Hypovolemia shock not --resucitated with IVF, resolved. ATN--d/t Hypovolemia/shock--resolved, Creatine back to baseline Anoxic encephalopathy-- not demonstrated on MRI menatal status somewhat improving Dysphagia--Speech recommended chopped /advanced diet/thinliquids Hypoglycemia : improving start diet,ppn RA--once able to take by mouth. Was on Methotraxate on Mondays, restart, and restart Prednisone if able to take oral Acute hepatitis d/t shocked liver--LFTs trending down Hypomagnesemia/hypokalemia : Replacements ordered IV. Obesity--should work on weight loss DVT prophylaxis-s/cHeparin Ongoing hospitalization need-multiple issues: Acute hypoxemic respiratory failure secondary to possible pneumonia/fluid overload on high-flow oxygen, IV diuretics and antibiotics, need mental status monitoring for encephalopathy, also multiple electrolytic abnormalities need repletion and electrolyte monitoring. PSYCHIATRY Pt is oriented to person, place, and approxiamte date/year and seasn. Pt understands in a fairly accurate (layterms) manner what happened to her and she understand the treatment she is getting now (again in a general way- layterms). She understands she needs to stay in the hospital and continue to recover. She is episocidally confused and tangential- this occurs and worsens when talking about the medical event and how much she scared her children; she easily becomes flooded with emotions and the speaks in a more disorganized way. My impression is she is competent; she has acute stress symptoms with differential diagnosis at this time is early delerium vs hypoxic injury; recommend reassess mental status if needed in 36-48 hours. Total time managing care of this patient today _60___ minutes. Patient educated on: diagnosis and medical condition Informed Consent: understands and further education needed
[2023-09-11] MEDS: Furosemide 20 MG/2 ML VIAL IVPUSH (14:31)
--- NOTE | 2023-09-11 14:57 | P.PNIM_ITS ---
Subjective Subjective Date of Service: 09/11/23 Interval History: sob ,confusion Review of Systems sob somewhat improving , high flow demand mental status also somewhat improving seen by swallow -willadd diet . no fev Physical Exam 2 Vital Signs: Vital Signs: Last Vital Signs Temp 96.9 F 09/11/23 11:06 Pulse 67 09/11/23 11:06 Resp 22 H 09/11/23 11:06 BP 132/72 09/11/23 11:06 Pulse Ox 94 09/11/23 11:06 O2 Del Method High Flow Nasal C annula 09/11/23 11:06 O2 Flow Rate 30 09/11/23 11:06 FiO2 45 09/11/23 11:06 BMI result Body Mass Index 36.7 Appearance: Alert.? Oriented X2 cvs: rrr, [id number] . res: air entry dimisnhed ,few scattered cracles at bases. abd: no rebound or guarding ,nt, bs present. ext pulses present , no cyanosis,mild swellin . neuro:moves upper ext and wiggle toes Objective Data Active Medications Dextrose (Dextrose 50 % 25 Gm/50 Ml Syringe) 25 gm IVPUSH Q15M PRN; Protocol PRN Reason: per Hypoglycemia Standing Ord. Fluoxetine HCl (Fluoxetine Hcl 20 Mg Capsule) 40 mg PO DAILY [facility] Last Admin: 09/11/23 10:18 Dose: 40 mg Documented By: RADHA Furosemide (Furosemide 20 Mg/2 Ml Vial) 20 mg IVPUSH Q12H [facility]; Protocol Last Admin: 09/11/23 14:31 Dose: 20 mg Documented By: RADHA Glucose (Glucose Gel 15 Gm Gel..Gram.) 15 gm PO Q15M PRN; Protocol PRN Reason: per Hypoglycemia Standing Ord. Heparin Sodium (Porcine) (Heparin Sodium,Porcine 5,000 Unit/Ml Vial) 5,000 unit SUBCUT Q8H [facility] Last Admin: 09/11/23 10:19 Dose: 5,000 unit Documented By: RADHA Hydroxychloroquine Sulfate (Hydroxychloroquine Sulfate 200 Mg Tablet) 200 mg PO DAILY [facility] Last Admin: 09/11/23 10:18 Dose: 200 mg Documented By: RADHA Piperacillin Sod/Tazobactam (Sod 3.375 gm/ Sodium Chloride) 50 mls @ 100 mls/hr IV Q6H [facility] Last Admin: 09/11/23 14:31 Dose: 100 mls/hr Documented By: RADHA Nutrition (Parenteral) (Parenteral Nutrition) 1,080 mls @ 45 mls/hr IV .Q24H [facility]; Protocol Stop: 09/11/23 20:59 Last Admin: 09/10/23 20:27 Dose: 45 mls/hr Documented By: REGLA Nutrition (Parenteral) (Parenteral Nutrition) 1,560 mls @ 65 mls/hr IV .Q24H [facility]; Protocol Stop: 09/12/23 20:59 Insulin Human Lispro (Insulin Lispro 100 Unit/Ml 3 Ml Vial) 0 unit SUBCUT Q6H [facility]; Protocol Last Admin: 09/11/23 10:19 Dose: 2 unit Documented By: RADHA Methylprednisolone Sodium Succinate (Methylprednisolone Sod Succ 40 Mg/Ml Vial) 20 mg IVPUSH BID [facility] Last Admin: 09/11/23 10:18 Dose: 20 mg Documented By: RADHA Morphine Sulfate (Morphine Sulfate 2 Mg/Ml Cartridge) 0.5 mg IVPUSH Q4H PRN; Protocol PRN Reason: Pain, Severe (Pain Scale 7-10) Last Admin: 09/08/23 20:35 Dose: 0.5 mg Documented By: ESTEBAN Pharmacy Consult (Consult Rx Parenteral Nutrition Ordering) 1 each MISCELLANE DAILY PRN PRN Reason: Consult order Prednisone (Prednisone 5 Mg Tablet) 5 mg PO DAILY [facility] Last Admin: 09/11/23 10:18 Dose: 5 mg Documented By: RADHA Sodium Biphosphate/Sodium Phosphate (Sodium Phosphate,[place]-Dibasic 133 Ml Enema) 133 ml [place] ONCE PRN PRN Reason: Constipation Last Admin: 09/07/23 12:02 Dose: 133 ml Documented By: JULIA Sucralfate (Sucralfate 1 Gm Tablet) 1 gm PO BID@0630,1630 [facility] Last Admin: 09/11/23 06:21 Dose: 1 gm Documented By: MIRELA Labs 09/11/23 05:56 09/11/23 05:56 Labs: Laboratory Results - last 24 hr 09/10/23 09/10/23 09/11/23 15:04 20:31 02:51 MCV MCH MCHC RDW Plt Count MPV Absolute Nucleated RBC Nucleated RBC % (auto) VBG pH VBG pCO2 VBG pO2 VBG HCO3 VBG O2 Saturation VBG Base Excess Anion Gap Estim Creat Clear Calc Estimated GFR POC Glucose 192 H 166 H 192 H Random Glucose Calcium Phosphorus Magnesium 09/11/23 09/11/23 09/11/23 05:56 05:56 05:56 MCV 95.4 MCH 30.7 MCHC 32.2 RDW 14.6 Plt Count 340 MPV 10.0 Absolute Nucleated RBC 0.000 Nucleated RBC % (auto) 0.0 VBG pH VBG pCO2 VBG pO2 VBG HCO3 VBG O2 Saturation VBG Base Excess Anion Gap Cancelled 13 Estim Creat Clear Calc Cancelled 91.0 Estimated GFR Cancelled POC Glucose Random Glucose Calcium Phosphorus Magnesium 09/11/23 09/11/23 09/11/23 05:56 05:56 05:56 MCV MCH MCHC RDW Plt Count MPV Absolute Nucleated RBC Nucleated RBC % (auto) VBG pH VBG pCO2 VBG pO2 VBG HCO3 VBG O2 Saturation VBG Base Excess Anion Gap Estim Creat Clear Calc Estimated GFR > 60 POC Glucose Random Glucose Cancelled 178 H Calcium Cancelled 9.6 Phosphorus 2.7 Magnesium 2.2 09/11/23 09/11/23 06:56 11:21 MCV MCH MCHC RDW Plt Count MPV Absolute Nucleated RBC Nucleated RBC % (auto) VBG pH 7.46 H VBG pCO2 48 VBG pO2 75 VBG HCO3 34 H VBG O2 Saturation 94.0 VBG Base Excess 9.6 Anion Gap Estim Creat Clear Calc Estimated GFR POC Glucose 185 H Random Glucose Calcium Phosphorus Magnesium Assessment and Plan (1) Encephalopathy: Status: Acute (2) Acute hypoxic respiratory failure: Status: Acute Plan 62-year-old female, obese, with rheumatoid arthritis on methotrexate (MTX), hypertension, and hypothyroidism, has been in the ICU since 08/31. She was brought to the emergency department in an unresponsive state, hypoxic/cyanotic, with an undetectable blood pressure and oxygen saturation in the 70s. She experienced cardiac arrest during the intubation process but regained return of spontaneous circulation (ROSC) following 2 rounds of CPR. The patient's ICU course has been complicated by hypovelemic shock, shocked liver, and acute tubular necrosis (ATN) due to renal hypoperfusion from profound hypotension. Although clinically she may have had anoxic encephalopathy, this has not been demonstrated on MRI. She was successfully extubated on 09/05 and maintains oxygen saturation, breathing comfortably on her own. She has been on Zosyn since 08/31 for suspected aspiration pneumonia. She remains fairly confused, although able to answer yes/no questions. She is NPO and will require a formal swallow evaluation before feeding. Acute hypoxic respiratory failure-multifcatorial -suspected d/t aspiration, intubated from 08/31 to and fluid overload, CXR showed peristent multifocal infiltrate abd seems fine (ph7.58 /47/127) Patient seen by ICu yesterday: ammonia levels fine ,abg also reassuring echo (09/02): ef 55-60% i/o:28/17.5 since yesterday 2.5 diuresis sob somewhat improving plan: continue high flow need taper 30liter/45%,, lasix drip,zosyn (08/31), solumedrol, moniter i/o,electrolytes ,cardiology eval noted -lasi adjusted 20 mg bid. Aspiration pneumonia--Zosyn since 08/31, once able to eat, will change to PO Augmentin for 7 to 10 days Enterococcus bacteremia from 08/31 culture--continue Zosyn and when eating then Augment Hypovolemia shock not --resucitated with IVF, resolved. ATN--d/t Hypovolemia/shock--resolved, Creatine back to baseline Anoxic encephalopathy-- not demonstrated on MRI menatal status somewhat improving Dysphagia--Speech recommended chopped /advanced diet/thinliquids Hypoglycemia : improving start diet,ppn RA--once able to take by mouth. Was on Methotraxate on Mondays, restart, and restart Prednisone if able to take oral Acute hepatitis d/t shocked liver--LFTs trending down Hypomagnesemia/hypokalemia : Replacements ordered IV. Obesity--should work on weight loss DVT prophylaxis-s/cHeparin Ongoing hospitalization need-multiple issues: Acute hypoxemic respiratory failure secondary to possible pneumonia/fluid overload on high-flow oxygen, IV diuretics and antibiotics, need mental status monitoring for encephalopathy, also multiple electrolytic abnormalities need repletion and electrolyte monitoring. Quality Stroke Does the patient have a stroke diagnosis?: No VTE Prior VTE?: No VTE Risk Level:: Medical - moderate - high VTE Device Contraindication: N/A - Device Ordered VTE Drug Contraindication: N/A - Med Ordered
[2023-09-11 15:55] LABS: Glucose, Whole Blood 191 mg/dL (60-115)
[2023-09-11] MEDS: HYDROmorphone HCl 1 MG/ML SYRINGE IVPUSH (20:04)
[2023-09-11 20:29] LABS: Glucose, Whole Blood 184 mg/dL (60-115)
[2023-09-11] MEDS: Parenteral Nutrition 1,560 ML 65 ML IV (21:44)
[2023-09-12] VITALS (8 sets, daily range): BP systolic 115–153; BP diastolic 65–83; PULSE 57–69; RESP 17–95; TEMP 36–36.9; O2SAT 94–99; BMI 36.5
--- NOTE | 2023-09-12 | ECG_ITS ---
Test Reason : chest pain Blood Pressure : / mmHG Vent. Rate : 056 BPM Atrial Rate : 056 BPM P-R Int : 138 ms QRS Dur : 104 ms QT Int : 412 ms P-R-T Axes : 065 048 044 degrees QTc Int : 397 ms Sinus bradycardia T wave abnormality, consider anterior ischemia Abnormal ECG When compared with ECG of 01-SEP-2023 11:03, QT has shortened Referred By: Brenda Jeff Electronically Signed By:CHRISTIE DAMICO MD
[2023-09-12 01:44] LABS: Glucose, Whole Blood 200 mg/dL (60-115)
[2023-09-12] MEDS: Piperacillin Sodium/Tazobactam 3.375 GM in 0.9 % Sodium Chloride 50 ML IV ×3 (01:45→13:45)
[2023-09-12] MEDS: Heparin Sodium,Porcine 5,000 UNIT/ML VIAL 5000 UNIT SUBCUT ×3 (01:45→16:15)
[2023-09-12] MEDS: Furosemide 20 MG/2 ML VIAL IVPUSH ×2 (01:45→13:46)
[2023-09-12] MEDS: Insulin Lispro 100 UNIT/ML 3 ML VIAL SUBCUT ×4 (01:58→22:19)
[2023-09-12] MEDS: Sucralfate 1 GM TABLET PO ×2 (06:43→16:16)
--- NOTE | 2023-09-12 07:52 | PC.RT ---
Found pt with sats mid 50's on a oxymask without the flowmeter turned on. Pt then placed on a 3L Oxymask and ats up to low 90's. Will let Hospitalist provider to aware to place oxygen orders as patient does not have any. Incident report done.
[2023-09-12 08:28] LABS: Glucose, Whole Blood 164 mg/dL (60-115)
[2023-09-12 09:20] LABS: Venous Blood Gas Refer to POC result
[2023-09-12 09:22] LABS: Hemoglobin 12.6 g/dl (12.0-16.0); Mean Corpuscular HGB Conc 32.3 g/dl (31.0-35.0); Mean Corpuscular Hemoglobin 31.1 pg (27.0-33.0); Mean Corpuscular Volume 96.3 fL (80.0-98.0); Mean Platelet Volume 9.9 fL (9.4-12.3); Platelet Count 388 X10*3/uL (160-400); Red Blood Count 4.05 X10*6/uL (4.20-5.50); Red Cell Distribution Width 14.8 % (11.0-16.0); White Blood Count 10.1 X10*3/uL (4.8-10.8)
[2023-09-12 09:23] LABS: VBG Base Excess 6.8 mmol/L; VBG HCO3 34 mmol/L (22-26); VBG pCO2 59 mmHg; VBG pH 7.36 (7.32-7.43); VBG pO2 143 mmHg
[2023-09-12 09:37] LABS: Anion Gap 10 (12-20); Blood Urea Nitrogen 24 mg/dL (9-16); Calcium 9.4 mg/dL (8.4-10.2); Carbon Dioxide 32 mmol/L (22-29); Chloride 100 mmol/L (96-108); Creatinine Clr Calc Pharmacy 109.1; Estimated Glomerular Filt Rate > 60; Glucose Random 159 mg/dL (60-115); Potassium 4.3 mmol/L (3.3-5.1); Sodium 138 mmol/L (135-145)
[2023-09-12 09:38] LABS: Albumin Level 3.9 g/dL (3.5-5.0); Magnesium 2.2 mg/dL (1.6-2.6); Phosphorus 3.7 mg/dL (2.7-4.5)
[2023-09-12] MEDS: methylPREDNISolone Sod Succ 40 MG/ML VIAL 20 MG IVPUSH (09:38)
[2023-09-12] MEDS: FLUoxetine HCl 20 MG CAPSULE 40 MG PO (09:39)
[2023-09-12] MEDS: predniSONE 5 MG TABLET PO (09:39)
[2023-09-12] MEDS: Hydroxychloroquine Sulfate 200 MG TABLET PO (09:39)
--- NOTE | 2023-09-12 10:13 | MHC.CLN ---
F/U PO INTAKE 50% X1 MEAL PER PT DIET RX: CHOPPED-APPROPRIATE RECOMMEND RE-STARTING ENSURE BID TO INCREASE KCALS PT RECEIVED PPN YESTERDAY; PPN AT 65ML/HR PROVIDED 796KCALS, 156G DEXTROSE, 66G PROTEIN REVIEWED LABS-UNREMARKABLE DISCUSSED WITH PHARMACY RECOMMEND INCREASING PPN TO 85ML/HR TO PROVIDE 1040KCALS, 204G DEXTROSE, 87G PROTEIN (1.2G/KG TO PROMOTE WOUND HEALING) REPLETE LYTES NEEDED MONITOR PO INTAKE CLOSELY; WILL D/C PPN WHEN PO INTAKE ADEQUATE
[2023-09-12 11:25] LABS: Glucose, Whole Blood 149 mg/dL (60-115)
--- NOTE | 2023-09-12 11:34 | MHC.CM.PN ---
CM received a call from Officer Greg from [employer], he would like to speak with pt when she is able to. He said she is in a safe place here and he can wait until she is more recovered to see her, he will call early next week. CM met with Pt, and an fiscal manager, and asked what pt's understanding is of what the next step is for her. Pt said that she wants to go home, and that she has a little dog that she misses. CM mentioned that MD may recommend STR for her to recover before she goes home. She said she thought that she would go home today. CM asked if she has O2 at home, which she is using now, and she said she does not. Her niece came in while we were talking. CM explained to her that the next step may be STR (niece speaks [place]ican), and she understood. Pt said that her [employer] is her niece. Pt said that she uses a W/C, that she has not walked in 6 years. Pt was able to list all of the medical problems that have occurred to her here. CM will follow and put out referrals for STR in anticipation of DC.
[2023-09-12 16:08] LABS: Glucose, Whole Blood 227 mg/dL (60-115)
--- NOTE | 2023-09-12 16:19 | HO.WOUND ---
Wound Consult: Follow up 62yr old?F admitted to [facility] on 09/01/23 - See progress notes and H&P for detailed history.? Wound consult follow up for Sacral area and right knee.? Patient is no longer ICU level of care remains on [facility] unit. At time of arrival to bedside - patient was sleeping and not able to reposition - photo reviewed from direct care team of the sacral area from yesterday. Details below. Chart review reveals patient was found down - see chart for details. The patient has significant history see H&P for details. Right Knee - Initial Assessment Right Knee Todays assessment Etiology: Resolving Deep Tissue Injury in Evolution -??Present on Admission Wound Bed: Intact dark purple maroon nonblanchable tissue Drainage / Odor: None Edges: ? Irregular Holli wound: ?red irregular maroon intact nonblanchable tissue, decreased swelling noted Goals of Treatment: ?May leave open to air and protect from trauma Sacrococcygeal Initial Assessment Yesterdays photo review from direct care team Sacrococcygeal (Sacrum, Coccyx and Buttock) Etiology: Continues to be Deep Tissue Injury in Evolution -??Present on Admission Wound Bed: two areas of partial thickness tissue loss not yet declared - surrounding area Intact dark purple nonblanchable tissue - Drainage / Odor: None Edges: ? Irregular Holli wound: ?red irregular maroon intact tissue Pain: Intubated Goals of Treatment: Triad and foam dressing to protect from friction and moisture and off load pressure Recommendations: 1. Turn and Reposition every 2 hours and as needed for patient comfort.? Use pillows or wedges to support off loading positions. 2. Off Load all bony prominences with use of pillows and heel boots if needed.? Apply Preventative foams where needed. ? 3. Monitor for incontinence and moisture control, use barrier creams when needed for prevention and treatment. 4. Provide adequate and supplemental nutrition.? 5. Continue low air loss mattress. 6. When applicable maintain blood glucose levels per Providers order. 7. Right Knee - may leave CRIST[place]BAL at this time. Continue to protect from friction and trauma. 8. Sacrococcygeal - Cleanse with ph balanced cleanser, pat dry. Apply Triad followed by sacral foam dressing. If foam dressing continues to be soiled discontinue and continue with Triad alone. Re-consult wound care Nurse for wound deterioration or wound changes.
--- NOTE | 2023-09-12 16:26 | HO.PM.IMPN ---
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 Oriented X2 cvs: rrr, [id number] . res: air entry dimisnhed ,few scattered cracles at bases. abd: no rebound or guarding ,nt, bs present. ext pulses present , no cyanosis,mild swellin . neuro:moves upper ext and wiggle toes Objective Data Active Medications Dextrose (Dextrose 50 % 25 Gm/50 Ml Syringe) 25 gm IVPUSH Q15M PRN; Protocol PRN Reason: per Hypoglycemia Standing Ord. Fluoxetine HCl (Fluoxetine Hcl 20 Mg Capsule) 40 mg PO DAILY [facility] Last Admin: 09/12/23 09:39 Dose: 40 mg Documented By: RADHA Furosemide (Furosemide 20 Mg/2 Ml Vial) 20 mg IVPUSH Q12H [facility]; Protocol Last Admin: 09/12/23 13:46 Dose: 20 mg Documented By: RADHA Glucose (Glucose Gel 15 Gm Gel..Gram.) 15 gm PO Q15M PRN; Protocol PRN Reason: per Hypoglycemia Standing Ord. Heparin Sodium (Porcine) (Heparin Sodium,Porcine 5,000 Unit/Ml Vial) 5,000 unit SUBCUT Q8H [facility] Last Admin: 09/12/23 16:15 Dose: 5,000 unit Documented By: RADHA Hydroxychloroquine Sulfate (Hydroxychloroquine Sulfate 200 Mg Tablet) 200 mg PO DAILY [facility] Last Admin: 09/12/23 09:39 Dose: 200 mg Documented By: RADHA Piperacillin Sod/Tazobactam (Sod 3.375 gm/ Sodium Chloride) 50 mls @ 100 mls/hr IV Q6H [facility] Last Infusion: 09/12/23 14:41 Dose: Infused Documented By: RADHA Nutrition (Parenteral) (Parenteral Nutrition) 1,560 mls @ 65 mls/hr IV .Q24H [facility]; Protocol Stop: 09/12/23 20:59 Last Admin: 09/11/23 21:44 Dose: 65 mls/hr Documented By: COLLEEN Nutrition (Parenteral) (Parenteral Nutrition) 2,040 mls @ 85 mls/hr IV .Q24H [facility]; Protocol Stop: 09/13/23 20:59 Insulin Human Lispro (Insulin Lispro 100 Unit/Ml 3 Ml Vial) 0 unit SUBCUT Q6H [facility]; Protocol Last Admin: 09/12/23 16:15 Dose: 4 unit Documented By: RADHA Methylprednisolone Sodium Succinate (Methylprednisolone Sod Succ 40 Mg/Ml Vial) 20 mg IVPUSH BID [facility] Last Admin: 09/12/23 09:38 Dose: 20 mg Documented By: RADHA Morphine Sulfate (Morphine Sulfate 2 Mg/Ml Cartridge) 0.5 mg IVPUSH Q4H PR[facility]; Protocol PRN Reason: Pain, Severe (Pain Scale 7-10) Last Admin: 09/08/23 20:35 Dose: 0.5 mg Documented By: ESTEBAN Pharmacy Consult (Consult Rx Parenteral Nutrition Ordering) 1 each MISCELLANE DAILY PRN PRN Reason: Consult order Prednisone (Prednisone 5 Mg Tablet) 5 mg PO DAILY [facility] Last Admin: 09/12/23 09:39 Dose: 5 mg Documented By: RADHA Sodium Biphosphate/Sodium Phosphate (Sodium Phosphate,[place]-Dibasic 133 Ml Enema) 133 ml [place] ONCE PRN PRN Reason: Constipation Last Admin: 09/07/23 12:02 Dose: 133 ml Documented By: JULIA Sucralfate (Sucralfate 1 Gm Tablet) 1 gm PO BID@0630,1630 [facility] Last Admin: 09/12/23 16:16 Dose: 1 gm Documented By: RADHA Labs 09/12/23 09:14 09/12/23 09:14 Labs: Laboratory Results - last 24 hr 09/11/23 09/12/23 09/12/23 20:20 01:40 08:25 MCV MCH MCHC RDW Plt Count MPV Absolute Nucleated RBC Nucleated RBC % (auto) VBG pH VBG pCO2 VBG pO2 VBG HCO3 VBG O2 Saturation VBG Base Excess Anion Gap Estim Creat Clear Calc Estimated GFR POC Glucose 184 H 200 H 164 H Random Glucose Calcium Phosphorus Magnesium Albumin 09/12/23 09/12/23 09/12/23 09:14 09:15 11:22 MCV 96.3 MCH 31.1 MCHC 32.3 RDW 14.8 Plt Count 388 MPV 9.9 Absolute Nucleated RBC 0.000 Nucleated RBC % (auto) 0.0 VBG pH 7.36 VBG pCO2 59 VBG pO2 143 VBG HCO3 34 H VBG O2 Saturation 100.0 VBG Base Excess 6.8 Anion Gap 10 L Estim Creat Clear Calc 109.1 Estimated GFR > 60 POC Glucose 149 H Random Glucose 159 H Calcium 9.4 Phosphorus 3.7 Magnesium 2.2 Albumin 3.9 09/12/23 16:04 MCV MCH MCHC RDW Plt Count MPV Absolute Nucleated RBC Nucleated RBC % (auto) VBG pH VBG pCO2 VBG pO2 VBG HCO3 VBG O2 Saturation VBG Base Excess Anion Gap Estim Creat Clear Calc Estimated GFR POC Glucose 227 H Random Glucose Calcium Phosphorus Magnesium Albumin Assessment and Plan (1) Encephalopathy: Status: Acute (2) Acute hypoxic respiratory failure: Status: Acute Plan 62-year-old female, obese, with rheumatoid arthritis on methotrexate (MTX), hypertension, and hypothyroidism, has been in the ICU since 08/31. She was brought to the emergency department in an unresponsive state, hypoxic/cyanotic, with an undetectable blood pressure and oxygen saturation in the 70s. She experienced cardiac arrest during the intubation process but regained return of spontaneous circulation (ROSC) following 2 rounds of CPR. The patient's ICU course has been complicated by hypovelemic shock, shocked liver, and acute tubular necrosis (ATN) due to renal hypoperfusion from profound hypotension. Although clinically she may have had anoxic encephalopathy, this has not been demonstrated on MRI. She was successfully extubated on 09/05 and maintains oxygen saturation, breathing comfortably on her own. She has been on Zosyn since 08/31 for suspected aspiration pneumonia. She remains fairly confused, although able to answer yes/no questions. She is NPO and will require a formal swallow evaluation before feeding. Acute hypoxic respiratory failure-multifcatorial -suspected d/t aspiration, intubated from 08/31 to and fluid overload, CXR showed peristent multifocal infiltrate abd seems fine (ph7.58 /47/127) Patient seen by ICu yesterday: ammonia levels fine ,abg also reassuring echo (09/02): ef 55-60% i/o:28/17.5 since yesterday 2.5 diuresis sob somewhat improving plan: Patient tapered off from high-flow, currently on 5 L oxygen, continue nebs, steroids, IV antibiotic so Zosyn switched to p.o. Augmentin, gentle diuresis will switch Lasix to p.o. in a.m. Discussed with Respiratory and Pulmonary-patient desaturation episodes possibly related to sleep apnea- added CPAP, may need sleep study Pulmonary following. Aspiration pneumonia--Zosyn since 08/31, once able to eat, will change to PO Augmentin for 7 to 10 days Enterococcus bacteremia from 08/31 culture--continue Zosyn and when eating then Augment Hypovolemia shock not --resucitated with IVF, resolved. ATN--d/t Hypovolemia/shock--resolved, Creatine back to baseline Anoxic encephalopathy-- not demonstrated on MRI menatal status somewhat improving Dysphagia--Speech recommended chopped /advanced diet/thinliquids Hypoglycemia : improving start diet,ppn RA--once able to take by mouth. Was on Methotraxate on Mondays, restart, and restart Prednisone if able to take oral Acute hepatitis d/t shocked liver--LFTs trending down Hypomagnesemia/hypokalemia : Replacements ordered IV. Obesity--should work on weight loss DVT prophylaxis-s/cHeparin Ongoing hospitalization need-multiple issues: Acute hypoxemic respiratory failure secondary to possible pneumonia/fluid overload on oxygen, IV diuretics and antibiotics, need mental status monitoring for encephalopathy, also multiple electrolytic abnormalities need repletion and electrolyte monitoring. Quality Stroke Does the patient have a stroke diagnosis?: No VTE Prior VTE?: No VTE Risk Level:: Medical - moderate - high VTE Device Contraindication: N/A - Device Ordered VTE Drug Contraindication: N/A - Med Ordered
--- NOTE | 2023-09-12 16:35 | P.CDIM_ITS ---
PROVIDER RESPONSE TEXT: To clarify, the appropriate diagnosis supported by the clinical indicators: DTI sacrococcygeal: Sacrum, Coccyx and Buttock QUERY TEXT: PHYSICIAN'S DOCUMENTATION REQUEST Date of Query: 09/11/2023 09:11 AM EDT Patient Name: Jane Mcdonald Admit Date: 09/01/2023 Dear Elizabeth Palma, A review of the medical record indicates additional documentation may be needed. Please review below and update the documentation accordingly. Clinical Indicators: Per Nursing Pressure Injury Assessment wound sacrum stage 2 Per Wound note 09/05/23: Sacrococcygeal deep tissue injury in evolution, present on admission Barrier cream to protect from friction and moisture and off load pressure Based on the above, could you please provide further information regarding the ulcer/wound: DTI sacrococcygeal Please specify the location and laterality of the ulcer/wound stage 2 pressure injury sacrum Traumatic wound Please specify the location and laterality of the ulcer/wound Other (explain) Clinically unable to determine (explain) Thank you, Bertha Figueroa RN Use of terms such as suspected, likely, concern for, or probable (associated with a specific diagnosi s that is being evaluated, monitored, or treated as if it exists) are acceptable and can be coded in the inpatient se tting, when documented at the time of discharge. Please use your independent medical judgment in providing your response. THIS QUERY IS PART OF THE PERMANENT MEDICAL RECORD
--- NOTE | 2023-09-12 17:29 | MHC.SL.SWA ---
Speech Pathologist Impression: Risk of Aspiration Due to: Medically Fragile Dysphasia Diet Status: Recommend patient continue w/ Chopped/Advanced Solids (NDD3) and Thin Liquids. Meds Whole with Puree. Requires 1:1 SUPERVISION for ALL PO. Supervision required to provide assistance w/ tray as needed, ensure proper positioning in bed, and provide cueing for safe eating strategies. Ensure that is positioned in bed as close to 90 degrees as possible. 45 degrees at minimum, but more preferably closer to at least 70 degrees. PATIENT SHOULD NOT BE LYING DOWN WHILE EATING/DRINKING (family has acknowledged this is a habit at home and is an unsafe practice). Cues for safe eating include alternating liquids and solids, not talking w/ food in mouth, and swallowing one bite before introducing the next. Liquid Consistency and Strategies for Safe Swallow: Liquid Intake Recommendation: Thin Liquid Intake Strategies: Unrestricted Solid Food Consistency: Dietary Recommendations: Chopped/Advanced (NDD3) Additional Modifications to Solid Foods: Recommending Chopped/Advanced Solids (NDD3) and Thin Liquids. Meds Whole with Puree. She is 1:1 feed at this time d/t decreased arm mobility. Recommend Respiratory be able to bring her down to 30L HFNC for all PO. She is currently NPO. Oral Medication Intake: Whole with Puree Please contact the pharmacy regarding appropriate crushable or liquid drug formulations that are available whenever modified delivery is recommended. Compensatory Strategies and Precautions to be Taken for Safe Swallow: Sitting Upright (90 deg) Small Bites and Sips Alternate Liquids/Solids Rate of Ingestion Change Supervision While Eating and Drinking for Safe Swallow: Total Supervision (1:1) Foods to Avoid: Mixed consistencies, difficult to chew solids. Swallowing Recommended Treatments: Compens. Strategy Educat. Recommendation for Speech: Comment: Patient was awake and alert with lunch tray on table beside bed. Patient stated that someone said they were coming to assist her with lunch. FOUR CORNER FORMER MACHINE OPERATOR offered to start lunch with patient, which she agreed to. Patient now more readily communicative, pleasant and coherent when communicated with in Malaysian. Patient asked FOUR CORNER FORMER MACHINE OPERATOR what happened to me? as she is still confused abou the events that lead to this hospitalization. Patient agreed to having the head of bed adjusted with head raised and foot of bed lowered, but tolerated head of bed only at 70 degrees. Patient then took serial sips of juice by straw with timely swallow and no difficulty. Patient also took bites of chopped meat, broccoli and mashed potatoes, noting mildly slow rotary chew, but otherwise swallow WFL. FOUR CORNER FORMER MACHINE OPERATOR left, speaking to nurse about BUNDLE BREAKER needing to assist patient for rest of meal. Frequency/Duration: Date Range for Service Req: Timeline to reassess: Ferryboat Operator Clinican/Clinical Fellow: No Supervisory Statement: I have reviewed and agree with the student/clinical fellow's documentation: N/A Speech Language Pathologist: Awa Mota M.A., CCC-FOUR CORNER FORMER MACHINE OPERATOR
[2023-09-12 21:05] LABS: Glucose, Whole Blood 178 mg/dL (60-115)
[2023-09-12] MEDS: Amoxicillin/Potassium Clav 4,000 MG/50 ML SUSP.RECON 875 MG PO (22:20)
[2023-09-12] MEDS: Nitroglycerin 0.4 MG TAB.SUBL SUBLINGUAL (22:33)
[2023-09-12] MEDS: Parenteral Nutrition 2,040 ML 85 ML IV (22:36)
[2023-09-12 23:08] LABS: Troponin-I High Sensitivity < 2.7 ng/L (<3.5-17.0)
[2023-09-12] MEDS: Acetaminophen 325 MG TABLET 975 MG PO (23:59)
[2023-09-13] VITALS (9 sets, daily range): BP systolic 127–153; BP diastolic 60–84; PULSE 56–87; RESP 14–25; TEMP 36–36.8; O2SAT 91–96; BMI 36.9
--- NOTE | 2023-09-13 00:05 | PC.RT ---
pt placed on slep study RN aware
[2023-09-13] MEDS: Heparin Sodium,Porcine 5,000 UNIT/ML VIAL 5000 UNIT SUBCUT ×3 (02:01→16:53)
[2023-09-13 04:02] LABS: Glucose, Whole Blood 154 mg/dL (60-115)
[2023-09-13] MEDS: Insulin Lispro 100 UNIT/ML 3 ML VIAL SUBCUT ×3 (04:21→20:51)
[2023-09-13] MEDS: LORazepam 1 MG TABLET PO (04:21)
[2023-09-13] MEDS: Morphine Sulfate 2 MG/ML CARTRIDGE 0.5 MG IVPUSH (05:33)
[2023-09-13] MEDS: Sucralfate 1 GM TABLET PO (05:33)
[2023-09-13] MEDS: Piperacillin Sodium/Tazobactam 3.375 GM in 0.9 % Sodium Chloride 50 ML IV ×3 (07:59→20:56)
[2023-09-13] MEDS: FLUoxetine HCl 20 MG CAPSULE 40 MG PO (08:00)
[2023-09-13] MEDS: Hydroxychloroquine Sulfate 200 MG TABLET PO (08:01)
[2023-09-13] MEDS: methylPREDNISolone Sod Succ 40 MG/ML VIAL 20 MG IVPUSH (08:02)
[2023-09-13] MEDS: predniSONE 5 MG TABLET PO (08:02)
[2023-09-13] MEDS: Furosemide 20 MG TABLET PO (08:02)
[2023-09-13 08:35] LABS: Hematocrit 40.8 % (37.0-47.0); Hemoglobin 12.9 g/dl (12.0-16.0); Mean Corpuscular HGB Conc 31.6 g/dl (31.0-35.0); Mean Corpuscular Hemoglobin 30.5 pg (27.0-33.0); Mean Corpuscular Volume 96.5 fL (80.0-98.0); Mean Platelet Volume 9.8 fL (9.4-12.3); Platelet Count 436 X10*3/uL (160-400); Red Blood Count 4.23 X10*6/uL (4.20-5.50); Red Cell Distribution Width 14.7 % (11.0-16.0)
[2023-09-13 08:37] LABS: Venous Blood Gas Refer to POC result
[2023-09-13 08:38] LABS: VBG Base Excess 4.6 mmol/L; VBG HCO3 29 mmol/L (22-26); VBG pCO2 45 mmHg; VBG pH 7.42 (7.32-7.43); VBG pO2 87 mmHg
[2023-09-13 08:49] LABS: Anion Gap 12 (12-20); Blood Urea Nitrogen 30 mg/dL (9-16); Calcium 9.7 mg/dL (8.4-10.2); Carbon Dioxide 29 mmol/L (22-29); Chloride 103 mmol/L (96-108); Creatinine Clr Calc Pharmacy 119.1; Estimated Glomerular Filt Rate > 60; Glucose Random 120 mg/dL (60-115); Magnesium 2.3 mg/dL (1.6-2.6); Phosphorus 2.8 mg/dL (2.7-4.5); Potassium 4.2 mmol/L (3.3-5.1); Sodium 140 mmol/L (135-145)
[2023-09-13 09:19] LABS: Glucose, Whole Blood 121 mg/dL (60-115)
--- NOTE | 2023-09-13 10:21 | MHC.CLN ---
F/U PO INTAKE 50% X2 MEALS DIET RX: CHOPPED-APPROPRIATE PT RECEIVING ENSURE BID TO INCREASE KCALS PROVIDES 700KCALS, 40G PROTEIN D/C PPN PER MD DISCUSSED WITH PHARMACY MONITOR PO INTAKE CLOSELY AND ENCOURAGE SUPPLEMENTS
--- NOTE | 2023-09-13 13:12 | MHC.SLORD ---
Speech Language Pathology Order Status: Upon POWER DIGGER OPERATOR arrival, patient was sleeping with open mouth and snoring. She awoke momentarily to sternal rub, refused all offerings of food and liquid, then quickly fell back asleep. At bedside, patient had breakfast tray which appeared to be mostly uneaten. Patient looked to have eaten some of the jell-o and pudding. She is currently on a chopped diet (NDD3) with thin liquids, to be provided with direct supervision during all PO intake. Patient must be awake and alert for meals, otherwise HOLD TRAY. POWER DIGGER OPERATOR will continue to follow during hospitalization M-F.
--- NOTE | 2023-09-13 14:02 | MHC.CM.PN ---
CM left for pt.s daughter, Aliyah to discuss DC plan and recommendations that pt. needs 24 hour care.
--- NOTE | 2023-09-13 14:47 | P.PNIM_ITS ---
Subjective Subjective Date of Service: 09/13/23 Interval History: Acute hypoxemic respiratory failure Review of Systems Desats to 50-60% with sleep, when awake she is in high 90s range with 3 L oxygen Mental status somewhat improving Denies any new complaints. Physical Exam 2 Vital Signs: Vital Signs: Last Vital Signs Temp 96.8 F 09/13/23 11:45 Pulse 70 09/13/23 11:45 Resp 14 09/13/23 11:45 BP 139/84 09/13/23 11:45 Pulse Ox 96 09/13/23 11:45 O2 Del Method Oxymask 09/13/23 11:45 O2 Flow Rate 2 09/13/23 11:45 FiO2 45 09/11/23 11:06 BMI result Body Mass Index 36.9 Appearance: Alert.? Oriented X2 cvs: rrr, [id number] . res: air entry dimisnhed ,few scattered cracles at bases. abd: no rebound or guarding ,nt, bs present. ext pulses present , no cyanosis,mild swellin . neuro:moves upper ext and wiggle toes Objective Data Active Medications Acetaminophen (Acetaminophen 325 Mg Tablet) 975 mg PO Q6H PRN PRN Reason: Pain, Mild (Pain Scale 1-3) Last Admin: 09/12/23 23:59 Dose: 975 mg Documented By: CLEVE Fluoxetine HCl (Fluoxetine Hcl 20 Mg Capsule) 40 mg PO DAILY [facility] Last Admin: 09/13/23 08:00 Dose: 40 mg Documented By: OLIVIA Furosemide (Furosemide 20 Mg Tablet) 20 mg PO DAILY [facility]; Protocol Last Admin: 09/13/23 08:02 Dose: 20 mg Documented By: OLIVIA Glucose (Glucose Gel 15 Gm Gel..Gram.) 15 gm PO Q15M PRN; Protocol PRN Reason: per Hypoglycemia Standing Ord. Heparin Sodium (Porcine) (Heparin Sodium,Porcine 5,000 Unit/Ml Vial) 5,000 unit SUBCUT Q8H [facility] Last Admin: 09/13/23 11:06 Dose: 5,000 unit Documented By: OLIVIA Hydroxychloroquine Sulfate (Hydroxychloroquine Sulfate 200 Mg Tablet) 200 mg PO DAILY [facility] Last Admin: 09/13/23 08:01 Dose: 200 mg Documented By: OLIVIA Nutrition (Parenteral) (Parenteral Nutrition) 2,040 mls @ 85 mls/hr IV .Q24H [facility]; Protocol Stop: 09/13/23 20:59 Last Admin: 09/12/23 22:36 Dose: 85 mls/hr Documented By: CLEVE Piperacillin Sod/Tazobactam (Sod 3.375 gm/ Sodium Chloride) 50 mls @ 100 mls/hr IV Q6H [facility] Last Admin: 09/13/23 14:30 Dose: 100 mls/hr Documented By: OLIVIA Dextrose (D10) 250 mls @ 750 mls/hr IV Q15M PRN PRN Reason: per Hypoglycemia Standing Ord. Insulin Human Lispro (Insulin Lispro 100 Unit/Ml 3 Ml Vial) 0 unit SUBCUT Q6H [facility]; Protocol Last Admin: 09/13/23 10:16 Dose: Not Given Documented By: OLIVIA Non-Admin Reason: No Insulin Coverage Methylprednisolone Sodium Succinate (Methylprednisolone Sod Succ 40 Mg/Ml Vial) 20 mg IVPUSH DAILY [facility] Last Admin: 09/13/23 08:02 Dose: 20 mg Documented By: OLIVIA Morphine Sulfate (Morphine Sulfate 2 Mg/Ml Cartridge) 0.5 mg IVPUSH Q4H PRN; Protocol PRN Reason: Pain, Severe (Pain Scale 7-10) Last Admin: 09/13/23 05:33 Dose: 0.5 mg Documented By: DEISY Nitroglycerin (Nitroglycerin 0.4 Mg Tab.Subl) 0.4 mg SUBLINGUAL Q5MX3 PRN PRN Reason: Chest Pain Last Admin: 09/12/23 22:33 Dose: 0.4 mg Documented By: CLEVE Pharmacy Consult (Consult Rx Parenteral Nutrition Ordering) 1 each MISCELLANE DAILY PRN PRN Reason: Consult order Prednisone (Prednisone 5 Mg Tablet) 5 mg PO DAILY [facility] Last Admin: 09/13/23 08:02 Dose: 5 mg Documented By: OLIVIA Sodium Biphosphate/Sodium Phosphate (Sodium Phosphate,[place]-Dibasic 133 Ml Enema) 133 ml [place] ONCE PRN PRN Reason: Constipation Last Admin: 09/07/23 12:02 Dose: 133 ml Documented By: JULIA Sucralfate (Sucralfate 1 Gm Tablet) 1 gm PO BID@0630,1630 [facility] Last Admin: 09/13/23 05:33 Dose: 1 gm Documented By: DEISY Labs 09/13/23 08:27 09/13/23 08:27 Labs: Laboratory Results - last 24 hr 09/12/23 09/12/23 09/12/23 16:04 20:53 22:41 MCV MCH MCHC RDW Plt Count MPV Absolute Nucleated RBC Nucleated RBC % (auto) VBG pH VBG pCO2 VBG pO2 VBG HCO3 VBG O2 Saturation VBG Base Excess Anion Gap Estim Creat Clear Calc Estimated GFR POC Glucose 227 H 178 H Random Glucose Calcium Phosphorus Magnesium Troponin I High Sens < 2.7 D Albumin 09/13/23 09/13/23 09/13/23 03:57 08:27 08:29 MCV 96.5 MCH 30.5 MCHC 31.6 RDW 14.7 Plt Count 436 H MPV 9.8 Absolute Nucleated RBC 0.000 Nucleated RBC % (auto) 0.0 VBG pH 7.42 VBG pCO2 45 VBG pO2 87 VBG HCO3 29 H VBG O2 Saturation 99.0 VBG Base Excess 4.6 Anion Gap 12 Estim Creat Clear Calc 119.1 Estimated GFR > 60 POC Glucose 154 H Random Glucose 120 H Calcium 9.7 Phosphorus 2.8 Magnesium 2.3 Troponin I High Sens Albumin 4.0 09/13/23 09:16 MCV MCH MCHC RDW Plt Count MPV Absolute Nucleated RBC Nucleated RBC % (auto) VBG pH VBG pCO2 VBG pO2 VBG HCO3 VBG O2 Saturation VBG Base Excess Anion Gap Estim Creat Clear Calc Estimated GFR POC Glucose 121 H Random Glucose Calcium Phosphorus Magnesium Troponin I High Sens Albumin Assessment and Plan (1) Encephalopathy: Status: Acute (2) Acute hypoxic respiratory failure: Status: Acute Plan 62-year-old female, obese, with rheumatoid arthritis on methotrexate (MTX), hypertension, and hypothyroidism, has been in the ICU since 08/31. She was brought to the emergency department in an unresponsive state, hypoxic/cyanotic, with an undetectable blood pressure and oxygen saturation in the 70s. She experienced cardiac arrest during the intubation process but regained return of spontaneous circulation (ROSC) following 2 rounds of CPR. The patient's ICU course has been complicated by hypovelemic shock, shocked liver, and acute tubular necrosis (ATN) due to renal hypoperfusion from profound hypotension. Although clinically she may have had anoxic encephalopathy, this has not been demonstrated on MRI. She was successfully extubated on 09/05 and maintains oxygen saturation, breathing comfortably on her own. She has been on Zosyn since 08/31 for suspected aspiration pneumonia. She remains fairly confused, although able to answer yes/no questions. She is NPO and will require a formal swallow evaluation before feeding. Acute hypoxic respiratory failure-multifcatorial -suspected d/t aspiration, intubated from 08/31 to and fluid overload, CXR showed peristent multifocal infiltrate abd seems fine (ph7.58 /47/127) Patient seen by ICu yesterday: ammonia levels fine ,abg also reassuring echo (09/02): ef 55-60% i/o:28/17.5 since yesterday 2.5 diuresis sob somewhat improving plan: Patient tapered off from high-flow, currently on 5 L oxygen, continue nebs, steroids, IV antibiotic so Zosyn switched to p.o. Augmentin, gentle diuresis will switch Lasix to p.o. in a.m. desats intmittent with sleep-d/w with Respiratory and Pulmonary-patient desaturation episodes possibly related to sleep apnea- added CPAP, may need sleep study Pulmonary following. Aspiration pneumonia--Zosyn since 08/31, once able to eat, will change to PO Augmentin for 7 to 10 days Enterococcus bacteremia from 08/31 culture--continue Zosyn and when eating then Augment Hypovolemia shock not --resucitated with IVF, resolved. ATN--d/t Hypovolemia/shock--resolved, Creatine back to baseline Anoxic encephalopathy-- not demonstrated on MRI menatal status somewhat improving Dysphagia--Speech recommended chopped /advanced diet/thinliquids Hypoglycemia : improving start diet,ppn RA--once able to take by mouth. Was on Methotraxate on Mondays, restart, and restart Prednisone if able to take oral Acute hepatitis d/t shocked liver--LFTs trending down Hypomagnesemia/hypokalemia : Replacements ordered IV. Obesity--should work on weight loss DVT prophylaxis-s/cHeparin Ongoing hospitalization need-multiple issues: Acute hypoxemic respiratory failure secondary to possible pneumonia/fluid overload on oxygen, IV diuretics and antibiotics, need mental status monitoring for encephalopathy, also multiple electrolytic abnormalities need repletion and electrolyte monitoring. Quality Stroke Does the patient have a stroke diagnosis?: No VTE Prior VTE?: No VTE Risk Level:: Medical - moderate - high VTE Device Contraindication: N/A - Device Ordered VTE Drug Contraindication: N/A - Med Ordered
[2023-09-13 14:53] LABS: Glucose, Whole Blood 195 mg/dL (60-115)
[2023-09-13 19:55] LABS: Glucose, Whole Blood 210 mg/dL (60-115)
--- NOTE | 2023-09-14 00:13 | W.PM.IDCN ---
History of Present Illness Data of Consult Service Date: 09/13/23 Requesting physician: Elizabeth Palma Primary Care Provider: Jenae Khan MD HPI Reason for consult: lung infiltrate,enterococcal bacteremia 08/31 She presents found down at home lying on floor covered urine and feces by report. She was given IV Zosyn for lung infiltrate,now day 13 antibiotics reportedly. She has improving CXR ,negative repeat blood cultures and no leukocytosis. Review of Systems Review of Systems: Yes Unobtainable due to mental status PMFSH Past Medical History Medical History Encephalopathy Erich lesion, chronic Low TSH level Episode of generalized weakness Positive fecal occult blood test GI bleed Insomnia Anemia Asthma RABIA (obstructive sleep apnea) Obesity Hypertension Thyroiditis Rheumatoid arthritis Hypothyroidism Depression Ulcer Family History Family History Other Cirrhosis Family history: reviewed and not pertinent Surgical History Surgical History Hx of colonoscopy History of esophagogastroduodenoscopy (EGD) Hx of hernia repair H/O lymph node biopsy Status post biopsy of uterine cervix History of appendectomy Social History Social History Household Members: Unknown / Unable to assess Housing: House Do you presently have visiting nurse or other home services: Yes ([employer]) Alcohol intake: never Comment: RN sitting at station outside pt's room Patient Tobacco Use Status: Never used Tobacco Use of substances other than those prescribed or required for medical reasons: Unable to respond Currently Displaying Signs/Symptoms of Drug Intoxication Withdrawal: No Advance Directives: Yes Advance Directives on File: Yes Advance Directives Date on File: 03/22/20 Nutrition Risks: No Nutritional Risk Patient : No : No service: No Current occupational status: disabled 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 [place] Meds Allergies Allergy/AdvReac Type Severity Reaction Status Date / Time ibuprofen [From MOTRIN] Allergy Unknown ULCERS Verified 03/12/20 19:51 naproxen [From NAPROSYN] Allergy Unknown ULCERS Verified 03/12/20 19:51 Active Medications: Current Medications Acetaminophen (Acetaminophen 325 Mg Tablet) 975 mg PO Q6H PRN PRN Reason: Pain, Mild (Pain Scale 1-3) Last Admin: 09/12/23 23:59 Dose: 975 mg Fluoxetine HCl (Fluoxetine Hcl 20 Mg Capsule) 40 mg PO DAILY [facility] Last Admin: 09/13/23 08:00 Dose: 40 mg Furosemide (Furosemide 20 Mg Tablet) 20 mg PO DAILY [facility]; Protocol Last Admin: 09/13/23 08:02 Dose: 20 mg Glucose (Glucose Gel 15 Gm Gel..Gram.) 15 gm PO Q15M PRN; Protocol PRN Reason: per Hypoglycemia Standing Ord. Heparin Sodium (Porcine) (Heparin Sodium,Porcine 5,000 Unit/Ml Vial) 5,000 unit SUBCUT Q8H [facility] Last Admin: 09/13/23 16:53 Dose: 5,000 unit Hydroxychloroquine Sulfate (Hydroxychloroquine Sulfate 200 Mg Tablet) 200 mg PO DAILY [facility] Last Admin: 09/13/23 08:01 Dose: 200 mg Piperacillin Sod/Tazobactam (Sod 3.375 gm/ Sodium Chloride) 50 mls @ 100 mls/hr IV Q6H [facility] Last Infusion: 09/13/23 21:27 Dose: Infused Dextrose (D10) 250 mls @ 750 mls/hr IV Q15M PRN PRN Reason: per Hypoglycemia Standing Ord. Insulin Human Lispro (Insulin Lispro 100 Unit/Ml 3 Ml Vial) 0 unit SUBCUT Q6H [facility]; Protocol Last Admin: 09/13/23 20:51 Dose: 4 unit Methylprednisolone Sodium Succinate (Methylprednisolone Sod Succ 40 Mg/Ml Vial) 20 mg IVPUSH DAILY [facility] Last Admin: 09/13/23 08:02 Dose: 20 mg Nitroglycerin (Nitroglycerin 0.4 Mg Tab.Subl) 0.4 mg SUBLINGUAL Q5MX3 PRN PRN Reason: Chest Pain Last Admin: 09/12/23 22:33 Dose: 0.4 mg Pharmacy Consult (Consult Rx Parenteral Nutrition Ordering) 1 each MISCELLANE DAILY PRN PRN Reason: Consult order Prednisone (Prednisone 5 Mg Tablet) 5 mg PO DAILY [facility] Last Admin: 09/13/23 08:02 Dose: 5 mg Sodium Biphosphate/Sodium Phosphate (Sodium Phosphate,[place]-Dibasic 133 Ml Enema) 133 ml [place] ONCE PRN PRN Reason: Constipation Last Admin: 09/07/23 12:02 Dose: 133 ml Sucralfate (Sucralfate 1 Gm Tablet) 1 gm PO BID@0630,1630 [facility] Last Admin: 09/13/23 16:54 Dose: Not Given Home Medications ?Medication ?Instructions ?Recorded ?Confirmed ?Last Taken ?Type oxycodone 10 mg tablet 10 mg PO BID PRN Pain, Moderate 03/12/20 09/01/23 04/21/21 History pantoprazole 40 mg tablet,delayed 1 tab PO DAILY@0630 03/12/20 09/01/23 04/21/21 History release ferrous sulfate 325 mg (65 mg 1 tab PO DAILY 01/03/21 09/01/23 04/21/21 History iron) tablet hydroxychloroquine 200 mg tablet 1 tab PO DAILY 01/03/21 09/01/23 04/21/21 History prednisone 5 mg tablet 1 tab PO DAILY 01/03/21 09/01/23 04/21/21 History fluoxetine 40 mg capsule 1 cap PO DAILY 04/22/21 09/01/23 04/21/21 History gabapentin 300 mg capsule 300 mg PO BEDTIME 09/01/23 09/01/23 Unknown History Physical Exam Vital Signs: Vital Signs: Last Vital Signs Temp 98.2 F 09/13/23 23:21 Pulse 56 09/13/23 23:21 Resp 18 09/13/23 23:39 BP 153/80 H 09/13/23 23:21 Pulse Ox 94 09/13/23 23:21 O2 Del Method CPAP 09/13/23 23:21 O2 Flow Rate 2 09/13/23 15:42 FiO2 45 09/11/23 11:06 BMI result Body Mass Index 36.9 Const: General: cooperative HEENT: Head: Yes normal to inspection Face and sinus: Yes normal facial exam Mouth: Normal oral and palatal mucosa present Teeth and gingiva: dentition normal Eyes: General: appearance normal, both eyes and all related structures Pupils: Equal, round and reactive pupils present Resp: Effort & Inspection: normal respiratory effort Cardio: Rate: regular rate Rhythm: regular rhythm GI: Palpation (GI): Soft to palpation and nontender : General: Yes no CVA tenderness Back/Spine/Pelvis: Back: no CVA tenderness Skin: General skin exam: no rashes or lesions noted Neuro: General: moves all extremities Cranial nerves: Yes Equal, round and reactive pupils present Extrem: General: Yes normal to inspection Psych: Appearance: grossly normal Results Labs 09/13/23 08:27 09/13/23 08:27 Labs: Short CBC 09/13/23 Range/Units 08:27 WBC 10.0 (4.8-10.8) X10*3/uL Hgb 12.9 (12.0-16.0) g/dl Hct 40.8 (37.0-47.0) % Plt Count 436 H (160-400) X10*3/uL BMP 09/13/23 08:27 Sodium 140 Potassium 4.2 Chloride 103 Carbon Dioxide 29 BUN 30 H Creatinine 0.59 Calcium 9.7 Liver Function 09/13/23 Range/Units 08:27 Albumin 4.0 (3.5-5.0) g/dL Microbiology Microbiology Results: Microbiology 09/01/23 11:57 Blood - Venous Blood Culture - Final No growth after 5 days. 09/01/23 10:44 Blood - Venous Blood Culture - Final Enterococcus faecalis Coag negative Staphylococcus Assessment and Plan (1) Encephalopathy: Status: Acute (2) Pulmonary aspiration: Status: Acute (3) Shock: Status: Acute Plan She had one enterococcus faecalis with coagulase negative staph bacteremia on 08/31. She has improving infiltrates lung. She is on piperacillin/tazobactam. Would stop piperacillin/tazobactam tomorrow.
[2023-09-14 02:20] LABS: Glucose, Whole Blood 155 mg/dL (60-115)
[2023-09-14] MEDS: Insulin Lispro 100 UNIT/ML 3 ML VIAL SUBCUT ×2 (02:24→15:45)
[2023-09-14] MEDS: Heparin Sodium,Porcine 5,000 UNIT/ML VIAL 5000 UNIT SUBCUT ×3 (02:24→18:29)
[2023-09-14] MEDS: Piperacillin Sodium/Tazobactam 3.375 GM in 0.9 % Sodium Chloride 50 ML IV ×4 (02:28→19:49)
[2023-09-14 03:49] VITALS: BP 141/85; PULSE 57; RESP 16; TEMP 36.8; O2SAT 94
[2023-09-14 06:00] VITALS: BMI 36.8
[2023-09-14 06:10] LABS: Hematocrit 40.5 % (37.0-47.0); Hemoglobin 12.8 g/dl (12.0-16.0); Mean Corpuscular HGB Conc 31.6 g/dl (31.0-35.0); Mean Corpuscular Hemoglobin 30.5 pg (27.0-33.0); Mean Corpuscular Volume 96.4 fL (80.0-98.0); Mean Platelet Volume 9.6 fL (9.4-12.3); Platelet Count 422 X10*3/uL (160-400); White Blood Count 8.8 X10*3/uL (4.8-10.8)
[2023-09-14 06:12] LABS: Venous Blood Gas Refer to POC result
[2023-09-14 06:13] LABS: VBG Base Excess 5.3 mmol/L; VBG HCO3 30 mmol/L (22-26); VBG pCO2 45 mmHg; VBG pH 7.43 (7.32-7.43); VBG pO2 73 mmHg
[2023-09-14 06:38] LABS: Albumin Level 3.8 g/dL (3.5-5.0); Anion Gap 11 (12-20); Blood Urea Nitrogen 24 mg/dL (9-16); Calcium 9.2 mg/dL (8.4-10.2); Carbon Dioxide 27 mmol/L (22-29); Chloride 104 mmol/L (96-108); Estimated Glomerular Filt Rate > 60; Glucose Random 97 mg/dL (60-115); Magnesium 2.2 mg/dL (1.6-2.6); Phosphorus 2.8 mg/dL (2.7-4.5); Potassium 4.2 mmol/L (3.3-5.1); Sodium 138 mmol/L (135-145)
[2023-09-14] MEDS: Sucralfate 1 GM TABLET PO ×2 (06:43→15:45)
[2023-09-14 08:00] VITALS: BP 147/76; PULSE 64; RESP 20; TEMP 36.2; O2SAT 92
[2023-09-14 08:36] LABS: Glucose, Whole Blood 132 mg/dL (60-115)
[2023-09-14] MEDS: predniSONE 5 MG TABLET PO (09:04)
[2023-09-14] MEDS: Hydroxychloroquine Sulfate 200 MG TABLET PO (09:04)
[2023-09-14] MEDS: FLUoxetine HCl 20 MG CAPSULE 40 MG PO (09:04)
[2023-09-14] MEDS: Furosemide 20 MG TABLET PO (09:04)
[2023-09-14] MEDS: methylPREDNISolone Sod Succ 40 MG/ML VIAL 20 MG IVPUSH (09:04)
[2023-09-14] MEDS: Phenazopyridine HCL 100 MG TABLET PO ×2 (09:46→18:29)
[2023-09-14 11:11] VITALS: BP 129/78; PULSE 66; RESP 20; TEMP 36.7; O2SAT 94
[2023-09-14 15:15] VITALS: BP 126/69; PULSE 73; RESP 20; TEMP 36.1; O2SAT 96
[2023-09-14 15:24] LABS: Glucose, Whole Blood 222 mg/dL (60-115)
--- NOTE | 2023-09-14 16:21 | HO.PM.IMPN ---
Subjective Subjective Date of Service: 09/14/23 Interval History: Acute hypoxemic respiratory failure Review of Systems seems improving mental status seems improved significantly using cpap. Physical Exam Vital Signs: Vital Signs: Last Vital Signs Temp 96.9 F 09/14/23 15:15 Pulse 73 09/14/23 15:15 Resp 20 09/14/23 15:15 BP 126/69 09/14/23 15:15 Pulse Ox 96 09/14/23 15:15 O2 Del Method Nasal Cannula 09/14/23 15:15 O2 Flow Rate 2 09/14/23 15:15 FiO2 45 09/11/23 11:06 BMI result Body Mass Index 36.8 Appearance: Alert.? Oriented X2 cvs: [id number], [id number] . res: air entry dimisnhed ,few scattered cracles at bases. abd: no rebound or guarding ,nt, bs present. ext pulses present , no cyanosis,mild swellin . neuro:moves upper ext and wiggle toes Objective Data Active Medications Acetaminophen (Acetaminophen 325 Mg Tablet) 975 mg PO Q6H PRN PRN Reason: Pain, Mild (Pain Scale 1-3) Last Admin: 09/12/23 23:59 Dose: 975 mg Documented By: CLEVE Fluoxetine HCl (Fluoxetine Hcl 20 Mg Capsule) 40 mg PO DAILY [facility] Last Admin: 09/14/23 09:04 Dose: 40 mg Documented By: ELAN Furosemide (Furosemide 20 Mg Tablet) 20 mg PO DAILY [facility]; Protocol Last Admin: 09/14/23 09:04 Dose: 20 mg Documented By: ELAN Glucose (Glucose Gel 15 Gm Gel..Gram.) 15 gm PO Q15M PRN; Protocol PRN Reason: per Hypoglycemia Standing Ord. Heparin Sodium (Porcine) (Heparin Sodium,Porcine 5,000 Unit/Ml Vial) 5,000 unit SUBCUT Q8H [facility] Last Admin: 09/14/23 09:04 Dose: 5,000 unit Documented By: ELAN Hydroxychloroquine Sulfate (Hydroxychloroquine Sulfate 200 Mg Tablet) 200 mg PO DAILY [facility] Last Admin: 09/14/23 09:04 Dose: 200 mg Documented By: ELAN Piperacillin Sod/Tazobactam (Sod 3.375 gm/ Sodium Chloride) 50 mls @ 100 mls/hr IV Q6H [facility] Last Infusion: 09/14/23 13:50 Dose: Infused Documented By: ELAN Dextrose (D10) 250 mls @ 750 mls/hr IV Q15M PRN PRN Reason: per Hypoglycemia Standing Ord. Insulin Human Lispro (Insulin Lispro 100 Unit/Ml 3 Ml Vial) 0 unit SUBCUT Q6H [facility]; Protocol Last Admin: 09/14/23 15:45 Dose: 4 unit Documented By: REGLA Methylprednisolone Sodium Succinate (Methylprednisolone Sod Succ 40 Mg/Ml Vial) 20 mg IVPUSH DAILY [facility] Last Admin: 09/14/23 09:04 Dose: 20 mg Documented By: ELAN Nitroglycerin (Nitroglycerin 0.4 Mg Tab.Subl) 0.4 mg SUBLINGUAL Q5MX3 PRN PRN Reason: Chest Pain Last Admin: 09/12/23 22:33 Dose: 0.4 mg Documented By: CLEVE Pharmacy Consult (Consult Rx Parenteral Nutrition Ordering) 1 each MISCELLANE DAILY PRN PRN Reason: Consult order Phenazopyridine HCl (Phenazopyridine Hcl 100 Mg Tablet) 100 mg PO BIDWM [facility] Stop: 09/15/23 17:01 Last Admin: 09/14/23 09:46 Dose: 100 mg Documented By: ELAN Prednisone (Prednisone 5 Mg Tablet) 5 mg PO DAILY [facility] Last Admin: 09/14/23 09:04 Dose: 5 mg Documented By: ELAN Sodium Biphosphate/Sodium Phosphate (Sodium Phosphate,[place]-Dibasic 133 Ml Enema) 133 ml ND ONCE PRN PRN Reason: Constipation Last Admin: 09/07/23 12:02 Dose: 133 ml Documented By: JULIA Sucralfate (Sucralfate 1 Gm Tablet) 1 gm PO BID@0630,1630 [facility] Last Admin: 09/14/23 15:45 Dose: 1 gm Documented By: REGLA Labs 09/14/23 06:01 09/14/23 06:01 Labs: Laboratory Results - last 24 hr 09/13/23 09/14/23 09/14/23 19:51 02:16 06:01 MCV 96.4 MCH 30.5 MCHC 31.6 RDW 15.0 Plt Count 422 H MPV 9.6 Absolute Nucleated RBC 0.000 Nucleated RBC % (auto) 0.0 VBG pH VBG pCO2 VBG pO2 VBG HCO3 VBG O2 Saturation VBG Base Excess Anion Gap 11 L Estim Creat Clear Calc 117.0 Estimated GFR > 60 POC Glucose 210 H 155 H Random Glucose 97 Calcium 9.2 Phosphorus 2.8 Magnesium 2.2 Albumin 3.8 09/14/23 09/14/23 09/14/23 06:06 08:32 15:18 MCV MCH MCHC RDW Plt Count MPV Absolute Nucleated RBC Nucleated RBC % (auto) VBG pH 7.43 VBG pCO2 45 VBG pO2 73 VBG HCO3 30 H VBG O2 Saturation 96.0 VBG Base Excess 5.3 Anion Gap Estim Creat Clear Calc Estimated GFR POC Glucose 132 H 222 H Random Glucose Calcium Phosphorus Magnesium Albumin Microbiology Microbiology Results: Microbiology 09/13/23 08:27 Blood Culture - Preliminary Blood - Venous No growth after 24 hours. 09/13/23 08:27 Blood Culture - Preliminary Blood - Venous No growth after 24 hours. Assessment and Plan (1) Encephalopathy: Status: Acute (2) Acute hypoxic respiratory failure: Status: Acute Plan 62-year-old female, obese, with rheumatoid arthritis on methotrexate (MTX), hypertension, and hypothyroidism, has been in the ICU since 08/31. She was brought to the emergency department in an unresponsive state, hypoxic/cyanotic, with an undetectable blood pressure and oxygen saturation in the 70s. She experienced cardiac arrest during the intubation process but regained return of spontaneous circulation (ROSC) following 2 rounds of CPR. The patient's ICU course has been complicated by hypovelemic shock, shocked liver, and acute tubular necrosis (ATN) due to renal hypoperfusion from profound hypotension. Although clinically she may have had anoxic encephalopathy, this has not been demonstrated on MRI. She was successfully extubated on 09/05 and maintains oxygen saturation, breathing comfortably on her own. She has been on Zosyn since 08/31 for suspected aspiration pneumonia. She remains fairly confused, although able to answer yes/no questions. She is NPO and will require a formal swallow evaluation before feeding. Acute hypoxic respiratory failure-multifcatorial -suspected d/t aspiration, intubated from 08/31 to and fluid overload, CXR showed peristent multifocal infiltrate, ammonia levels fine ,abg also reassuring echo (09/02): ef 55-60% plan: Patient tapered off from high-flow, currently on [place] oxygen, continue nebs, steroids, completed zosyn, po lasix desats intmittent with sleep-d/w with Respiratory and Pulmonary-patient desaturation episodes possibly related to sleep apnea- added CPAP, may need sleep study Pulmonary following-plan to do inpatient sleep study early next week before planning dispo. Aspiration pneumonia--Zosyn since 08/31, once able to eat, will change to PO Augmentin for 7 to 10 days Enterococcus bacteremia from 08/31 culture--completed zosyn for 2 weeks, repeat blood cultures neg@24hrs. Hypovolemia shock not --resucitated with IVF, resolved. ATN--d/t Hypovolemia/shock--resolved, Creatine back to baseline Anoxic encephalopathy-- not demonstrated on MRI mental status improving Dysphagia--Speech recommended chopped /advanced diet/thinliquids Hypoglycemia : improving start diet,ppn RA--once able to take by mouth. Was on Methotraxate on Mondays, restart, and restart Prednisone if able to take oral Acute hepatitis d/t shocked liver--LFTs trending down Hypomagnesemia/hypokalemia : Replacements ordered IV. Obesity--should work on weight loss DVT prophylaxis-s/cHeparin Ongoing hospitalization need-multiple issues: Acute hypoxemic respiratory failure secondary to possible pneumonia/fluid overload on oxygen, IV diuretics and antibiotics, need mental status monitoring for encephalopathy, plan to do inpatient sleep study early next week before planning dispo. Quality Stroke Does the patient have a stroke diagnosis?: No VTE Prior VTE?: No VTE Risk Level:: Medical - moderate - high VTE Device Contraindication: N/A - Device Ordered VTE Drug Contraindication: N/A - Med Ordered
[2023-09-14 19:32] VITALS: BP 139/77; PULSE 69; RESP 18; TEMP 36; O2SAT 93
[2023-09-14 21:47] LABS: Glucose, Whole Blood 113 mg/dL (60-115)
[2023-09-14 23:43] VITALS: PULSE 66; RESP 16; O2SAT 97
[2023-09-15] VITALS (8 sets, daily range): BP systolic 135–160; BP diastolic 71–98; PULSE 64–82; RESP 14–20; TEMP 36–37; O2SAT 93–98
[2023-09-15] MEDS: Heparin Sodium,Porcine 5,000 UNIT/ML VIAL 5000 UNIT SUBCUT ×3 (01:47→19:13)
[2023-09-15] MEDS: Piperacillin Sodium/Tazobactam 3.375 GM in 0.9 % Sodium Chloride 50 ML IV (01:47)
[2023-09-15 04:12] LABS: Glucose, Whole Blood 103 mg/dL (60-115)
[2023-09-15] MEDS: Sucralfate 1 GM TABLET PO ×2 (05:56→16:43)
[2023-09-15 08:40] LABS: Glucose, Whole Blood 101 mg/dL (60-115)
[2023-09-15] MEDS: methylPREDNISolone Sod Succ 40 MG/ML VIAL 20 MG IVPUSH (10:06)
[2023-09-15] MEDS: Furosemide 20 MG TABLET PO (10:06)
[2023-09-15] MEDS: FLUoxetine HCl 20 MG CAPSULE 40 MG PO (10:06)
[2023-09-15] MEDS: predniSONE 5 MG TABLET PO (10:06)
[2023-09-15] MEDS: Hydroxychloroquine Sulfate 200 MG TABLET PO (10:06)
[2023-09-15] MEDS: Phenazopyridine HCL 100 MG TABLET PO ×2 (10:07→16:43)
[2023-09-15 10:59] LABS: Anion Gap 14 (12-20); Blood Urea Nitrogen 20 mg/dL (9-16); Calcium 9.3 mg/dL (8.4-10.2); Carbon Dioxide 29 mmol/L (22-29); Chloride 100 mmol/L (96-108); Creatinine Clr Calc Pharmacy 104.8; Estimated Glomerular Filt Rate > 60; Glucose Random 155 mg/dL (60-115); Magnesium 1.9 mg/dL (1.6-2.6); Phosphorus 2.6 mg/dL (2.7-4.5); Potassium 3.7 mmol/L (3.3-5.1); Sodium 139 mmol/L (135-145)
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
--- NOTE | 2023-09-15 14:36 | P.PNIM_ITS ---
Subjective Subjective Date of Service: 09/15/23 Interval History: Acute hypoxemic respiratory failure Review of Systems seems improving mental status seems improved significantly using cpap. Physical Exam 2 Vital Signs: Vital Signs: Last Vital Signs Temp 97.0 F 09/15/23 11:05 Pulse 71 09/15/23 11:05 Resp 20 09/15/23 11:05 BP 135/78 09/15/23 11:05 Pulse Ox 93 09/15/23 11:05 O2 Del Method Nasal Cannula 09/15/23 11:05 O2 Flow Rate 2 09/15/23 11:05 FiO2 45 09/11/23 11:06 BMI result Body Mass Index 36.8 Appearance: Alert.? Oriented X2 cvs: rrr, [id number] . res: air entry dimisnhed ,few scattered cracles at bases. abd: no rebound or guarding ,nt, bs present. ext pulses present , no cyanosis,mild swellin . neuro:moves upper ext and wiggle toes Objective Data Active Medications Acetaminophen (Acetaminophen 325 Mg Tablet) 975 mg PO Q6H PRN PRN Reason: Pain, Mild (Pain Scale 1-3) Last Admin: 09/12/23 23:59 Dose: 975 mg Documented By: CLEVE Fluoxetine HCl (Fluoxetine Hcl 20 Mg Capsule) 40 mg PO DAILY [facility] Last Admin: 09/15/23 10:06 Dose: 40 mg Documented By: RADHA Furosemide (Furosemide 20 Mg Tablet) 20 mg PO DAILY [facility]; Protocol Last Admin: 09/15/23 10:06 Dose: 20 mg Documented By: RADHA Glucose (Glucose Gel 15 Gm Gel..Gram.) 15 gm PO Q15M PRN; Protocol PRN Reason: per Hypoglycemia Standing Ord. Glucose (Glucose Gel 15 Gm Gel..Gram.) 15 gm PO Q15M PRN; Protocol PRN Reason: per Hypoglycemia Standing Ord. Heparin Sodium (Porcine) (Heparin Sodium,Porcine 5,000 Unit/Ml Vial) 5,000 unit SUBCUT Q8H [facility] Last Admin: 09/15/23 10:06 Dose: 5,000 unit Documented By: RADHA Hydroxychloroquine Sulfate (Hydroxychloroquine Sulfate 200 Mg Tablet) 200 mg PO DAILY [facility] Last Admin: 09/15/23 10:06 Dose: 200 mg Documented By: RADHA Dextrose (D10) 250 mls @ 750 mls/hr IV Q15M PRN PRN Reason: per Hypoglycemia Standing Ord. Dextrose (D10) 250 mls @ 750 mls/hr IV Q15M PRN; Protocol PRN Reason: per Hypoglycemia Standing Ord. Insulin Human Lispro (Insulin Lispro 100 Unit/Ml 3 Ml Vial) 0 unit SUBCUT QIDACHS [facility]; Protocol Methylprednisolone Sodium Succinate (Methylprednisolone Sod Succ 40 Mg/Ml Vial) 20 mg IVPUSH DAILY [facility] Last Admin: 09/15/23 10:06 Dose: 20 mg Documented By: RADHA Nitroglycerin (Nitroglycerin 0.4 Mg Tab.Subl) 0.4 mg SUBLINGUAL Q5MX3 PRN PRN Reason: Chest Pain Last Admin: 09/12/23 22:33 Dose: 0.4 mg Documented By: CLEVE Pharmacy Consult (Consult Rx Parenteral Nutrition Ordering) 1 each MISCELLANE DAILY PRN PRN Reason: Consult order Phenazopyridine HCl (Phenazopyridine Hcl 100 Mg Tablet) 100 mg PO BIDWM [facility] Stop: 09/15/23 17:01 Last Admin: 09/15/23 10:07 Dose: 100 mg Documented By: RADHA Prednisone (Prednisone 5 Mg Tablet) 5 mg PO DAILY [facility] Last Admin: 09/15/23 10:06 Dose: 5 mg Documented By: RADHA Sodium Biphosphate/Sodium Phosphate (Sodium Phosphate,[place]-Dibasic 133 Ml Enema) 133 ml [place] ONCE PRN PRN Reason: Constipation Last Admin: 09/07/23 12:02 Dose: 133 ml Documented By: JULIA Sucralfate (Sucralfate 1 Gm Tablet) 1 gm PO BID@0630,1630 [facility] Last Admin: 09/15/23 05:56 Dose: 1 gm Documented By: VANESSADEFeng Labs 09/14/23 06:01 09/15/23 06:07 Labs: Laboratory Results - last 24 hr 09/14/23 09/14/23 09/15/23 15:18 21:18 04:08 Hold Purple Top Anion Gap Estim Creat Clear Calc Estimated GFR POC Glucose 222 H 113 103 Random Glucose Calcium Phosphorus Magnesium 09/15/23 09/15/23 06:07 08:36 Hold Purple Top SEE NOTE Anion Gap 14 Estim Creat Clear Calc 104.8 Estimated GFR > 60 POC Glucose 101 Random Glucose 155 H Calcium 9.3 Phosphorus 2.6 L Magnesium 1.9 Microbiology Microbiology Results: Microbiology 09/13/23 08:27 Blood Culture - Preliminary Blood - Venous No growth after 48 hours. 09/13/23 08:27 Blood Culture - Preliminary Blood - Venous No growth after 48 hours. Assessment and Plan (1) Encephalopathy: Status: Acute (2) Acute hypoxic respiratory failure: Status: Acute Plan 62-year-old female, obese, with rheumatoid arthritis on methotrexate (MTX), hypertension, and hypothyroidism, has been in the ICU since 08/31. She was brought to the emergency department in an unresponsive state, hypoxic/cyanotic, with an undetectable blood pressure and oxygen saturation in the 70s. She experienced cardiac arrest during the intubation process but regained return of spontaneous circulation (ROSC) following 2 rounds of CPR. The patient's ICU course has been complicated by hypovelemic shock, shocked liver, and acute tubular necrosis (ATN) due to renal hypoperfusion from profound hypotension. Although clinically she may have had anoxic encephalopathy, this has not been demonstrated on MRI. She was successfully extubated on 09/05 and maintains oxygen saturation, breathing comfortably on her own. She has been on Zosyn since 08/31 for suspected aspiration pneumonia. She remains fairly confused, although able to answer yes/no questions. She is NPO and will require a formal swallow evaluation before feeding. Acute hypoxic respiratory failure-multifcatorial -suspected d/t aspiration, intubated from 08/31 to and fluid overload, CXR showed peristent multifocal infiltrate, ammonia levels fine ,abg also reassuring echo (09/02): ef 55-60%. plan: Patient tapered off from high-flow, currently on [place] oxygen, continue nebs, steroids, completed zosyn, po lasix desats intmittent with sleep-d/w with Respiratory and Pulmonary-patient desaturation episodes possibly related to sleep apnea- added CPAP, may need sleep study Pulmonary following-plan to do inpatient sleep study early next week before planning dispo. Aspiration pneumonia--completed 2 weeks of zosyn. Enterococcus bacteremia from 08/31 culture--completed zosyn for 2 weeks,. blood cultures negative @48hrs. Hypovolemia shock not --resucitated with IVF, resolved. ATN--d/t Hypovolemia/shock--resolved, Creatine back to baseline Anoxic encephalopathy-- not demonstrated on MRI mental status improving Dysphagia--Speech recommended chopped /advanced diet/thinliquids Hypoglycemia : improving start diet,ppn RA--once able to take by mouth. Was on Methotraxate on Mondays, restart, and restart Prednisone if able to take oral Acute hepatitis d/t shocked liver--LFTs trending down Hypomagnesemia/hypokalemia : Replacements ordered IV. Obesity--should work on weight loss DVT prophylaxis-s/cHeparin Ongoing hospitalization need-multiple issues: Acute hypoxemic respiratory failure secondary to possible pneumonia/fluid overload on oxygen, IV diuretics and antibiotics, need mental status monitoring for encephalopathy, plan to do inpatient sleep study early next week before planning dispo. Quality Stroke Does the patient have a stroke diagnosis?: No VTE Prior VTE?: No VTE Risk Level:: Medical - moderate - high VTE Device Contraindication: N/A - Device Ordered VTE Drug Contraindication: N/A - Med Ordered
[2023-09-15 16:12] LABS: Glucose, Whole Blood 184 mg/dL (60-115)
[2023-09-15] MEDS: Insulin Lispro 100 UNIT/ML 3 ML VIAL SUBCUT (16:43)
[2023-09-15] MEDS: LORazepam 0.5 MG TABLET 0.25 MG PO (20:19)
[2023-09-15 20:31] LABS: Glucose, Whole Blood 145 mg/dL (60-115)
[2023-09-16] MEDS: Heparin Sodium,Porcine 5,000 UNIT/ML VIAL 5000 UNIT SUBCUT ×3 (01:42→16:36)
[2023-09-16 03:18] VITALS: BP 159/81; PULSE 60; RESP 20; TEMP 36.1; O2SAT 97
[2023-09-16 06:00] VITALS: BMI 36.3
[2023-09-16] MEDS: Sucralfate 1 GM TABLET PO ×2 (06:17→16:36)
[2023-09-16 06:31] LABS: Anion Gap 12 (12-20); Blood Urea Nitrogen 15 mg/dL (9-16); Calcium 9.4 mg/dL (8.4-10.2); Carbon Dioxide 29 mmol/L (22-29); Chloride 102 mmol/L (96-108); Creatinine Clr Calc Pharmacy 126.7; Estimated Glomerular Filt Rate > 60; Glucose Random 101 mg/dL (60-115); Phosphorus 2.6 mg/dL (2.7-4.5); Potassium 3.8 mmol/L (3.3-5.1); Sodium 139 mmol/L (135-145)
[2023-09-16 06:47] LABS: Thyroid Stimulating Hormone 6.38 uIU/mL (0.32-4.0)
[2023-09-16 07:00] LABS: Folate 8.8 ng/mL (> or = 4.0); Vitamin B12 > 2000 pg/mL (200-900)
[2023-09-16 07:10] VITALS: BP 128/78; PULSE 71; RESP 20; TEMP 36; O2SAT 98
[2023-09-16 07:23] LABS: Glucose, Whole Blood 144 mg/dL (60-115)
[2023-09-16] MEDS: predniSONE 20 MG TABLET PO (07:50)
[2023-09-16] MEDS: LORazepam 0.5 MG TABLET 0.25 MG PO ×2 (07:50→22:01)
[2023-09-16] MEDS: FLUoxetine HCl 20 MG CAPSULE 40 MG PO (07:50)
[2023-09-16] MEDS: Furosemide 20 MG TABLET PO (07:50)
[2023-09-16] MEDS: predniSONE 5 MG TABLET PO (07:50)
[2023-09-16] MEDS: Sertraline HCL 25 MG TABLET PO (07:50)
[2023-09-16] MEDS: Hydroxychloroquine Sulfate 200 MG TABLET PO (07:50)
[2023-09-16] MEDS: Sodium,Potassium Phosphates POWD.PACK 1 PACKET PO ×4 (07:58→21:30)
[2023-09-16 08:18] LABS: Free T4 (Free Thyroxine) 0.73 ng/dL (0.71-1.85)
--- NOTE | 2023-09-16 08:39 | PC.RT ---
pt sleep study is inconclusive. Therefore she needs to have it repeated tonight.
[2023-09-16 11:01] VITALS: BP 151/81; PULSE 80; RESP 20; TEMP 36.7; O2SAT 97
[2023-09-16 11:08] LABS: Glucose, Whole Blood 172 mg/dL (60-115)
--- NOTE | 2023-09-16 12:02 | MHC.CLN ---
F/U PO INTAKE VARIABLE RANGING FROM 25-100% DIET RX: CHOPPED-APPROPRIATE SHINGLE TRIMMER FOLLOWING FOR APPROPRIATE DIET CONSISTENCY PT RECEIVING ENSURE BID TO PROMOTE WOUND HEALING PROVIDES 700KCALS, 40G PROTEIN MONITOR PO INTAKE CLOSELY AND ENCOURAGE SUPPLEMENTS
--- NOTE | 2023-09-16 12:41 | MHC.SL.SWA ---
Speech Pathologist Impression: Risk of aspiration, oropharyngeal dysphagia Risk of Aspiration Due to: Medically Fragile Dysphasia Diet Status: Recommend patient continue w/ Chopped/Advanced Solids (NDD3) and Thin Liquids. Meds Whole with Puree. Requires 1:1 SUPERVISION for ALL PO. Supervision required to provide assistance w/ tray as needed, ensure proper positioning in bed, and provide cueing for safe eating strategies. Ensure that is positioned in bed as close to 90 degrees as possible. 45 degrees at minimum, but more preferably closer to at least 70 degrees. PATIENT SHOULD NOT BE LYING DOWN WHILE EATING/DRINKING (family has acknowledged this is a habit at home and is an unsafe practice). Cues for safe eating include alternating liquids and solids, not talking w/ food in mouth, and swallowing one bite before introducing the next. Liquid Consistency and Strategies for Safe Swallow: Liquid Intake Recommendation: Thin Liquid Intake Strategies: Unrestricted Solid Food Consistency: Dietary Recommendations: Chopped/Advanced (NDD3) Oral Medication Intake: Whole with Puree Please contact the pharmacy regarding appropriate crushable or liquid drug formulations that are available whenever modified delivery is recommended. Compensatory Strategies and Precautions to be Taken for Safe Swallow: Sitting Upright (90 deg) Small Bites and Sips Alternate Liquids/Solids Rate of Ingestion Change Supervision While Eating and Drinking for Safe Swallow: Total Supervision (1:1) Foods to Avoid: Mixed consistencies, difficult to chew solids. Swallowing Recommended Treatments: Compens. Strategy Educat. Recommendation for Speech: Inpatient ST Expanded Duty Dental Assistant Clinican/Clinical Fellow: No Supervisory Statement: I have reviewed and agree with the student/clinical fellow's documentation: N/A Speech Language Pathologist: Amada Waldrop M.A., CCC-PRESS MANAGER
[2023-09-16] MEDS: Insulin Lispro 100 UNIT/ML 3 ML VIAL SUBCUT ×2 (12:49→16:35)
--- NOTE | 2023-09-16 15:12 | PM.EVENT ---
Documented by User: Shavon Toney RickyCarlosmaricel, MEAGHAN 09/16/23 15:42 Event Note Date of Service: 09/16/23 Event Note: Tw spoke with pt's daughter, Aliyah Arana [phone]. Aliyah reports pt has a poor history of self care. She has difficulty accepting direction/advice from family and providers. Aliyah reports, by history pt uses her medical issues to control family and to meet her personal needs. Aliyah has acted as a mother to pt for several years, however, with her own therapy she is beginning to set boundaries, encouraging pt to utilize professional services and support services to increase her autonomy. Aliyah does not believe pt will accept services, however she does support efforts to attempt to discuss with pt and refer her if she is agreeable. Time Spent With Patient Time: Total time managing care of this patient today ____ minutes. Documented by User: Florin Carrasco MD 09/18/23 21:13 Event Note Date of Service: 09/18/23
[2023-09-16 15:58] LABS: Glucose, Whole Blood 160 mg/dL (60-115)
[2023-09-16 16:00] VITALS: BP 147/83; PULSE 72; RESP 12; TEMP 36.1; O2SAT 97
--- NOTE | 2023-09-16 16:05 | HO.WOUND ---
Wound Consult: Follow up 62yr old?F admitted to [facility] on 09/01/23 - See progress notes and H&P for detailed history.? 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 Arrival to bedside patient has [place] oxygen in place. Bridge of nose and face assessed - no pressure injury noted - no redness no erythema noted patient denies tenderness. Discussed with direct care nurse to apply Mepliex lite foam dressing under device if reapplied - provided to nurse and asked to pass on in reports as per discussion with respiratory devices will likely be employed at various times throughout her stay. No new topical recommendations needed continue to follow orders in place and prevention recommendations listed below. Recommendations: 1. Turn and Reposition every 2 hours and as needed for patient comfort.? Use pillows or wedges to support off loading positions. 2. Off Load all bony prominences with use of pillows and heel boots if needed.? Apply Preventative foams where needed. ? 3. Monitor for incontinence and moisture control, use barrier creams when needed for prevention and treatment. 4. Provide adequate and supplemental nutrition.? 5. Continue low air loss mattress. 6. When applicable maintain blood glucose levels per Providers order. 7. Right Knee - may leave CRISTÓBAL at this time. Continue to protect from friction and trauma. 8. Sacrococcygeal - Cleanse with ph balanced cleanser, pat dry. Apply Triad followed by sacral foam dressing. If foam dressing continues to be soiled discontinue and continue with Triad alone. 9. Bridge of Nose - Cleanse with routine cleansing. Apply skin prep allow to dry keep away from eyes. Apply Mepilex lite foam dressing cut to size under device such as Bipap when in use. This can be used for prevention. Peel back and assess Q shift and change every 3 days and PRN. Re-consult wound care Nurse for wound deterioration or wound changes.
--- NOTE | 2023-09-16 16:49 | MHC.CM.PN ---
EMR REVIEWED, PLAN FOR REPEAT SLEEP STUDY D/T INITIAL BEING INCONCLUSIVE, ANTIC PT WILL BE CLEARED FOR DC IN 1-2 DAYS, GSSS INVOLVED, CM ATTEMPTED TO CONTACT HCP/DTR WHO PT MAY LIVE W/OR NEXT TO, DETAILED MESSAGE LEFT AT APPROX 3:15PM AT NUMBER ON FILE, CM AWAITING RESPONSE P.T./O.T. RECOMMENDING 24HR CARE, CM WILL REVISIT IN AM.
--- NOTE | 2023-09-16 17:02 | P.PNIM_ITS ---
Subjective Subjective Date of Service: 09/16/23 Interval History: Acute hypoxemic respiratory failure Review of Systems seems improving mental status seems improved significantly near baseline using cpap. Physical Exam 2 Vital Signs: Vital Signs: Last Vital Signs Temp 96.9 F 09/16/23 16:00 Pulse 72 09/16/23 16:00 Resp 12 09/16/23 16:00 BP 147/83 H 09/16/23 16:00 Pulse Ox 97 09/16/23 16:00 O2 Del Method Nasal Cannula 09/16/23 16:00 O2 Flow Rate 2 09/16/23 16:00 FiO2 45 09/11/23 11:06 BMI result Body Mass Index 36.3 Appearance: Alert.? Oriented X2 cvs: [id number], [id number] . res: air entry dimisnhed ,few scattered cracles at bases. abd: no rebound or guarding ,nt, bs present. ext pulses present , no cyanosis,mild swellin . neuro:moves upper ext and wiggle toes Objective Data Active Medications Acetaminophen (Acetaminophen 325 Mg Tablet) 975 mg PO Q6H PRN PRN Reason: Pain, Mild (Pain Scale 1-3) Last Admin: 09/12/23 23:59 Dose: 975 mg Documented By: CLEVE Fluoxetine HCl (Fluoxetine Hcl 20 Mg Capsule) 40 mg PO DAILY [facility] Last Admin: 09/16/23 07:50 Dose: 40 mg Documented By: RADHA Furosemide (Furosemide 20 Mg Tablet) 20 mg PO DAILY [facility]; Protocol Last Admin: 09/16/23 07:50 Dose: 20 mg Documented By: RADHA Glucose (Glucose Gel 15 Gm Gel..Gram.) 15 gm PO Q15M PRN; Protocol PRN Reason: per Hypoglycemia Standing Ord. Glucose (Glucose Gel 15 Gm Gel..Gram.) 15 gm PO Q15M PRN; Protocol PRN Reason: per Hypoglycemia Standing Ord. Heparin Sodium (Porcine) (Heparin Sodium,Porcine 5,000 Unit/Ml Vial) 5,000 unit SUBCUT Q8H [facility] Last Admin: 09/16/23 16:36 Dose: 5,000 unit Documented By: RADHA Hydroxychloroquine Sulfate (Hydroxychloroquine Sulfate 200 Mg Tablet) 200 mg PO DAILY [facility] Last Admin: 09/16/23 07:50 Dose: 200 mg Documented By: RADHA Dextrose (D10) 250 mls @ 750 mls/hr IV Q15M PRN PRN Reason: per Hypoglycemia Standing Ord. Dextrose (D10) 250 mls @ 750 mls/hr IV Q15M PRN; Protocol PRN Reason: per Hypoglycemia Standing Ord. Insulin Human Lispro (Insulin Lispro 100 Unit/Ml 3 Ml Vial) 0 unit SUBCUT QIDACHS [facility]; Protocol Last Admin: 09/16/23 16:35 Dose: 2 unit Documented By: RADHA Lorazepam (Lorazepam 0.5 Mg Tablet) 0.25 mg PO Q8H PRN PRN Reason: Anxiety Last Admin: 09/16/23 07:50 Dose: 0.25 mg Documented By: RADHA Nitroglycerin (Nitroglycerin 0.4 Mg Tab.Subl) 0.4 mg SUBLINGUAL Q5MX3 PRN PRN Reason: Chest Pain Last Admin: 09/12/23 22:33 Dose: 0.4 mg Documented By: CLEVE Pharmacy Consult (Consult Rx Parenteral Nutrition Ordering) 1 each MISCELLANE DAILY PRN PRN Reason: Consult order Potassium Phos/Sodium Phos (Sodium,Potassium Phosphates Powd.Pack) 1 packet PO QID [facility] Last Admin: 09/16/23 16:36 Dose: 1 packet Documented By: RADHA Prednisone (Prednisone 5 Mg Tablet) 5 mg PO DAILY [facility] Last Admin: 09/16/23 07:50 Dose: 5 mg Documented By: RADHA Prednisone (Prednisone 20 Mg Tablet) 20 mg PO DAILY [facility] Last Admin: 09/16/23 07:50 Dose: 20 mg Documented By: RADHA Sertraline HCl (Sertraline Hcl 25 Mg Tablet) 25 mg PO DAILY [facility] Last Admin: 09/16/23 07:50 Dose: 25 mg Documented By: RADHA Sodium Biphosphate/Sodium Phosphate (Sodium Phosphate,[place]-Dibasic 133 Ml Enema) 133 ml [place] ONCE PRN PRN Reason: Constipation Last Admin: 09/07/23 12:02 Dose: 133 ml Documented By: JULIA Sucralfate (Sucralfate 1 Gm Tablet) 1 gm PO BID@0630,1630 [facility] Last Admin: 09/16/23 16:36 Dose: 1 gm Documented By: RADHA Labs 09/14/23 06:01 09/16/23 05:34 Labs: Laboratory Results - last 24 hr 09/15/23 09/16/23 09/16/23 20:06 05:34 07:09 Hold Purple Top SEE NOTE Anion Gap 12 Estim Creat Clear Calc 126.7 Estimated GFR > 60 POC Glucose 145 H 144 H Random Glucose 101 Calcium 9.4 Phosphorus 2.6 L Magnesium 2.0 Vitamin B12 > 2000 H Folate 8.8 TSH 6.38 H Free T4 0.73 09/16/23 09/16/23 11:00 15:53 Hold Purple Top Anion Gap Estim Creat Clear Calc Estimated GFR POC Glucose 172 H 160 H Random Glucose Calcium Phosphorus Magnesium Vitamin B12 Folate TSH Free T4 Assessment and Plan (1) Encephalopathy: Status: Acute (2) Acute hypoxic respiratory failure: Status: Acute Plan 62-year-old female, obese, with rheumatoid arthritis on methotrexate (MTX), hypertension, and hypothyroidism, has been in the ICU since 08/31. She was brought to the emergency department in an unresponsive state, hypoxic/cyanotic, with an undetectable blood pressure and oxygen saturation in the 70s. She experienced cardiac arrest during the intubation process but regained return of spontaneous circulation (ROSC) following 2 rounds of CPR. The patient's ICU course has been complicated by hypovelemic shock, shocked liver, and acute tubular necrosis (ATN) due to renal hypoperfusion from profound hypotension. Although clinically she may have had anoxic encephalopathy, this has not been demonstrated on MRI. She was successfully extubated on 09/05 and maintains oxygen saturation, breathing comfortably on her own. She has been on Zosyn since 08/31 for suspected aspiration pneumonia. She remains fairly confused, although able to answer yes/no questions. She is NPO and will require a formal swallow evaluation before feeding. Acute hypoxic respiratory failure-multifcatorial -suspected d/t aspiration, intubated from 08/31 to and fluid overload, CXR showed peristent multifocal infiltrate, ammonia levels fine ,abg also reassuring echo (09/02): ef 55-60%. plan: Patient tapered off from high-flow, currently on [place] oxygen, continue nebs, steroids, completed zosyn, po lasix desats intmittent with sleep-d/w with Respiratory and Pulmonary-patient desaturation episodes possibly related to sleep apnea- added CPAP, may need sleep study Pulmonary following-plan to do inpatient sleep study early next week before planning dispo. Aspiration pneumonia--completed 2 weeks of zosyn. Enterococcus bacteremia from 08/31 culture--completed zosyn for 2 weeks,. blood cultures negative @48hrs. Hypovolemia shock not --resucitated with IVF, resolved. ATN--d/t Hypovolemia/shock--resolved, Creatine back to baseline Anoxic encephalopathy-- not demonstrated on MRI mental status improving Dysphagia--Speech recommended chopped /advanced diet/thinliquids Hypoglycemia : improving start diet,ppn RA--once able to take by mouth. Was on Methotraxate on Mondays, restart, and restart Prednisone if able to take oral Acute hepatitis d/t shocked liver--LFTs trending down Hypomagnesemia/hypokalemia : Replacements ordered IV. Obesity--should work on weight loss DVT prophylaxis-s/cHeparin Ongoing hospitalization need-multiple issues: Acute hypoxemic respiratory failure secondary to possible pneumonia/fluid overload on oxygen, IV diuretics and antibiotics, need mental status monitoring for encephalopathy, plan to do inpatient sleep study early next week before planning dispo. Quality Stroke Does the patient have a stroke diagnosis?: No VTE Prior VTE?: No VTE Risk Level:: Medical - moderate - high VTE Device Contraindication: N/A - Device Ordered VTE Drug Contraindication: N/A - Med Ordered
[2023-09-16 19:22] VITALS: BP 141/79; PULSE 65; RESP 20; TEMP 36.1; O2SAT 97
[2023-09-16 20:54] LABS: Glucose, Whole Blood 123 mg/dL (60-115)
[2023-09-16] MEDS: Acetaminophen 325 MG TABLET 975 MG PO (22:02)
--- NOTE | 2023-09-16 22:54 | PC.RT ---
Sleep study started @ 2249; placed on RA for study RN aware
[2023-09-17] VITALS (8 sets, daily range): BP systolic 112–169; BP diastolic 76–94; PULSE 62–90; RESP 13–20; TEMP 36.1–36.9; O2SAT 95–99; BMI 37.0
[2023-09-17] MEDS: Heparin Sodium,Porcine 5,000 UNIT/ML VIAL 5000 UNIT SUBCUT ×3 (01:08→17:31)
[2023-09-17] MEDS: LORazepam 2 MG/ML VIAL 0.5 MG IVPUSH (01:08)
--- NOTE | 2023-09-17 04:33 | PC.RT ---
Sleep study end @ 419; pt left on NASIR BRIGGS aware
[2023-09-17] MEDS: Sucralfate 1 GM TABLET PO ×2 (05:35→17:32)
[2023-09-17] MEDS: LORazepam 0.5 MG TABLET 0.25 MG PO (05:36)
[2023-09-17 06:46] LABS: Anion Gap 15 (12-20); Blood Urea Nitrogen 15 mg/dL (9-16); Calcium 9.4 mg/dL (8.4-10.2); Carbon Dioxide 28 mmol/L (22-29); Chloride 101 mmol/L (96-108); Creatinine Clr Calc Pharmacy 113.5; Estimated Glomerular Filt Rate > 60; Glucose Random 139 mg/dL (60-115); Magnesium 1.8 mg/dL (1.6-2.6); Potassium 3.6 mmol/L (3.3-5.1); Sodium 140 mmol/L (135-145)
[2023-09-17] MEDS: Hydroxychloroquine Sulfate 200 MG TABLET PO (08:10)
[2023-09-17] MEDS: Sodium,Potassium Phosphates POWD.PACK 1 PACKET PO ×4 (08:10→22:48)
[2023-09-17] MEDS: Furosemide 20 MG TABLET PO (08:10)
[2023-09-17] MEDS: FLUoxetine HCl 20 MG CAPSULE 40 MG PO (08:10)
[2023-09-17] MEDS: predniSONE 20 MG TABLET PO (08:10)
[2023-09-17] MEDS: predniSONE 5 MG TABLET PO (08:10)
[2023-09-17] MEDS: Sertraline HCL 25 MG TABLET PO (08:10)
[2023-09-17 08:15] LABS: Glucose, Whole Blood 115 mg/dL (60-115)
--- NOTE | 2023-09-17 09:42 | MHC.CM.PN ---
Addendum entered by Awa Chaparro RN 09/17/23 09:56: CM ALSO ATTEMPTED TO CONTACT PT'S ALT HCP/SISTER NAI AT TIME OF THIS NOTE, DETAILED MESSAGE LEFT. Original Note: EMR REVIEWED, PER PSYCH PT HAS CAPACITY TO MAKE HER OWN DECISIONS, CM MET W/PT VIA BAND RIPSAW OPERATOR, PT IS CURRENTLY DECLINING TO GO TO STR AND WANTS TO GO HOME, PT AWARE [facility] IS INVOLVED AND WILL BE COMING INTO THE HOSPITAL VS HOME TO SPEAK W/PT D/T THE STATE SHE WAS FOUND IN, PT DOES REPORT SHE IS AGREEABLE TO NEW VNA SERVICES AND WOULD LIKE SN AND PT AT HOME TO GET STRONGER SHE USED TO BE ABLE TO STAND WITH WALKER AND WITHOUT HELP, WHEN CM GENTLY DESCRIBED HOW SHE WAS FOUND AND WHY [facility] WAS CONTACTED PT REPORTS SHE WASN'T FEELING WELL AND THAT SHE USES A BED DEL ROSARIO IN BED, PT REPORTS SHE DOES NOT RECALL THE SPECIFICS. CM DID ATTEMPT TO CONTACT PT'S DTR DAISY FOR SECOND DAY AT 9:25AM AT NUMBER ON FILE, DETAILED MESSAGE LEFT W/PLAN FOR CALL BACK AFTER ROUNDS. PT HAS NO PREFERENCE AND VNA REFERRAL PLACED TO COMFORT PLUS PT HAS NO PREFERENCE AND WOULD BENEFIT FROM BED MANAGEMENT
[2023-09-17] MEDS: LORazepam 0.5 MG TABLET PO (10:29)
[2023-09-17 11:31] LABS: Glucose, Whole Blood 214 mg/dL (60-115)
--- NOTE | 2023-09-17 12:24 | MHC.CM.PN ---
CM RECEIVED MESSAGE FROM [facility] THAT PT HAS NOT BEEN SEEN BY PCP GÉNESIS SINCE 2021 SO THEY ARE UNABLE TO PROVIDE SERVICES W/NO COMMUNITY MD TO WRITE ORDERS. MOO FOUND ANOTHER NUMBER FOR DTR DAISY [phone] FROM INITIAL PSYCH CONSULT, CM ATTEMPTED TO CALL AT 12:22PM FOR MORE DETAILS, NO ANSWER AND MESSAGE LEFT W/REQUEST FOR CALL BACK. CM CONTACTED [facility]IA[facility] WHO REPORTS SHE WILL GIVE AUTH FOR STR, CM CURRENTLY AWAITING ON CHIEF POWER DISPATCHER TO REVIST STR W/PT.
[2023-09-17] MEDS: Insulin Lispro 100 UNIT/ML 3 ML VIAL SUBCUT ×2 (12:34→17:32)
--- NOTE | 2023-09-17 12:56 | P.PNIM_ITS ---
Subjective Subjective Date of Service: 09/17/23 Interval History: Acute hypoxemic respiratory failure Review of Systems seems improving,still desats in sleep in daytime if not on cpap. mental status seems improved significantly near baseline using cpap. anxious wishing to speak with psych Physical Exam 2 Vital Signs: Vital Signs: Last Vital Signs Temp 97.0 F 09/17/23 11:41 Pulse 90 09/17/23 11:41 Resp 18 09/17/23 11:41 BP 119/77 09/17/23 11:41 Pulse Ox 97 09/17/23 11:41 O2 Del Method Nasal Cannula 09/17/23 11:41 O2 Flow Rate 1 09/17/23 11:41 FiO2 45 09/11/23 11:06 BMI result Body Mass Index 37.0 Appearance: Alert.? Oriented X2-3 cvs: [id number], [id number] . res: air entry dimisnhed ,few scattered cracles at bases. abd: no rebound or guarding ,nt, bs present. ext pulses present , no cyanosis,mild swellin . neuro:moves upper ext and wiggle toes Objective Data Active Medications Acetaminophen (Acetaminophen 325 Mg Tablet) 975 mg PO Q6H PRN PRN Reason: Pain, Mild (Pain Scale 1-3) Last Admin: 09/16/23 22:02 Dose: 975 mg Documented By: SOUMYA Fluoxetine HCl (Fluoxetine Hcl 20 Mg Capsule) 40 mg PO DAILY [facility] Last Admin: 09/17/23 08:10 Dose: 40 mg Documented By: LUIS Furosemide (Furosemide 20 Mg Tablet) 20 mg PO DAILY [facility]; Protocol Last Admin: 09/17/23 08:10 Dose: 20 mg Documented By: LUIS Glucose (Glucose Gel 15 Gm Gel..Gram.) 15 gm PO Q15M PRN; Protocol PRN Reason: per Hypoglycemia Standing Ord. Glucose (Glucose Gel 15 Gm Gel..Gram.) 15 gm PO Q15M PRN; Protocol PRN Reason: per Hypoglycemia Standing Ord. Heparin Sodium (Porcine) (Heparin Sodium,Porcine 5,000 Unit/Ml Vial) 5,000 unit SUBCUT Q8H [facility] Last Admin: 09/17/23 08:10 Dose: 5,000 unit Documented By: LUIS Hydroxychloroquine Sulfate (Hydroxychloroquine Sulfate 200 Mg Tablet) 200 mg PO DAILY [facility] Last Admin: 09/17/23 08:10 Dose: 200 mg Documented By: LUIS Dextrose (D10) 250 mls @ 750 mls/hr IV Q15M PRN PRN Reason: per Hypoglycemia Standing Ord. Dextrose (D10) 250 mls @ 750 mls/hr IV Q15M PRN; Protocol PRN Reason: per Hypoglycemia Standing Ord. Insulin Human Lispro (Insulin Lispro 100 Unit/Ml 3 Ml Vial) 0 unit SUBCUT QIDACHS [facility]; Protocol Last Admin: 09/17/23 12:34 Dose: 4 unit Documented By: GRAZYNA Lorazepam (Lorazepam 0.5 Mg Tablet) 0.25 mg PO Q8H PRN PRN Reason: Anxiety Last Admin: 09/17/23 05:36 Dose: 0.25 mg Documented By: SOUMYA Nitroglycerin (Nitroglycerin 0.4 Mg Tab.Subl) 0.4 mg SUBLINGUAL Q5MX3 PRN PRN Reason: Chest Pain Last Admin: 09/12/23 22:33 Dose: 0.4 mg Documented By: CLEVE Pharmacy Consult (Consult Rx Parenteral Nutrition Ordering) 1 each MISCELLANE DAILY PRN PRN Reason: Consult order Potassium Phos/Sodium Phos (Sodium,Potassium Phosphates Powd.Pack) 1 packet PO QID [facility] Last Admin: 09/17/23 12:34 Dose: 1 packet Documented By: GRAZYNA Prednisone (Prednisone 5 Mg Tablet) 5 mg PO DAILY [facility] Last Admin: 09/17/23 08:10 Dose: 5 mg Documented By: LUIS Prednisone (Prednisone 20 Mg Tablet) 20 mg PO DAILY [facility] Last Admin: 09/17/23 08:10 Dose: 20 mg Documented By: LUIS Sertraline HCl (Sertraline Hcl 25 Mg Tablet) 25 mg PO DAILY [facility] Last Admin: 09/17/23 08:10 Dose: 25 mg Documented By: LUIS Sodium Biphosphate/Sodium Phosphate (Sodium Phosphate,[place]-Dibasic 133 Ml Enema) 133 ml [place] ONCE PRN PRN Reason: Constipation Last Admin: 09/07/23 12:02 Dose: 133 ml Documented By: JULIA Sucralfate (Sucralfate 1 Gm Tablet) 1 gm PO BID@0630,1630 [facility] Last Admin: 09/17/23 05:35 Dose: 1 gm Documented By: SOUMYA Labs 09/14/23 06:01 09/17/23 06:05 Labs: Laboratory Results - last 24 hr 09/16/23 09/16/23 09/17/23 15:53 20:43 06:05 Anion Gap 15 Estim Creat Clear Calc 113.5 Estimated GFR > 60 POC Glucose 160 H 123 H Random Glucose 139 H Calcium 9.4 Phosphorus 3.0 Magnesium 1.8 09/17/23 09/17/23 07:49 11:18 Anion Gap Estim Creat Clear Calc Estimated GFR POC Glucose 115 214 H Random Glucose Calcium Phosphorus Magnesium Assessment and Plan (1) RABIA (obstructive sleep apnea): Status: Acute (2) Encephalopathy: Status: Acute Assessment and Plan: 62-year-old female, obese, with rheumatoid arthritis on methotrexate (MTX), hypertension, and hypothyroidism, has been in the ICU since 08/31. She was brought to the emergency department in an unresponsive state, hypoxic/cyanotic, with an undetectable blood pressure and oxygen saturation in the 70s. She experienced cardiac arrest during the intubation process but regained return of spontaneous circulation (ROSC) following 2 rounds of CPR. The patient's ICU course has been complicated by hypovelemic shock, shocked liver, and acute tubular necrosis (ATN) due to renal hypoperfusion from profound hypotension. Although clinically she may have had anoxic encephalopathy, this has not been demonstrated on MRI. She was successfully extubated on 09/05 and maintains oxygen saturation, breathing comfortably on her own. She has been on Zosyn since 08/31 for suspected aspiration pneumonia. She remains fairly confused, although able to answer yes/no questions. She is NPO and will require a formal swallow evaluation before feeding. Acute hypoxic respiratory failure-multifcatorial -suspected d/t aspiration, intubated from 08/31 to and fluid overload, CXR showed peristent multifocal infiltrate, ammonia levels fine ,abg also reassuring echo (09/02): ef 55-60%. plan: Patient tapered off from high-flow, currently on [place] oxygen, continue nebs, steroids, completed zosyn, po lasix desats intmittent with sleep-d/w with Respiratory and Pulmonary-patient desaturation episodes possibly related to sleep apnea- on CPAP, may need sleep study Pulmonary following-plan to do inpatient sleep study toady-waiting to read,also home cpap arrangements.. Aspiration pneumonia--completed 2 weeks of zosyn. Enterococcus bacteremia from 08/31 culture--completed zosyn for 2 weeks,. blood cultures negative @48hrs. Hypovolemia shock not --resucitated with IVF, resolved. ATN--d/t Hypovolemia/shock--resolved, Creatine back to baseline Anoxic encephalopathy-- not demonstrated on MRI mental status improved significantly. Dysphagia--Speech recommended chopped /advanced diet/thinliquids Hypoglycemia : improving start diet,ppn RA--once able to take by mouth. Was on Methotraxate on Mondays, restart, and restart Prednisone if able to take oral Acute hepatitis d/t shocked liver--LFTs trending down Hypomagnesemia/hypokalemia : Replacements ordered IV. Obesity--should work on weight loss Anxiety : she has on/off anxiety/cry , feels sad psych eval added (09/14/23)-waiting to be seen. DVT prophylaxis-s/cHeparin Ongoing hospitalization need-multiple issues: Acute hypoxemic respiratory failure secondary to possible pneumonia/fluid overload on oxygen, IV diuretics and antibiotics, need mental status monitoring for encephalopathy, plan to do inpatient sleep study reading and cpap arrangement before planning dispo. Quality Stroke Does the patient have a stroke diagnosis?: No VTE Prior VTE?: No VTE Risk Level:: Medical - moderate - high VTE Device Contraindication: N/A - Device Ordered VTE Drug Contraindication: N/A - Med Ordered
--- NOTE | 2023-09-17 13:21 | MHC.SPEECHCO ---
Pt was fast asleep, snoring this morning. Has not woken up yet per RN. MILLINERY DEPARTMENT MANAGER returned after Lunch, but Pt stated she was full and did not want anything to eat. She had completed 75% of her tray. MILLINERY DEPARTMENT MANAGER will follow-up x1 tomorrow.
--- NOTE | 2023-09-17 15:59 | PM.PSYCN ---
History of Present Illness Date of Service: 09/17/23 Chief Complaint: anxiety Reason for Consult: anxiety Requesting physician: Elizabeth Palma Discussed with referring provider: Yes (Devante Carey) Sources of Information: patient interviewed, chart reviewed and crisis/core team assessment reviewed Additional Sources of Information: Daughter Aliyah, telephone discussion on 09/16/23. HPI Narrative: 62 yo female, hx of RA, HTN, hypothyroidism, s/p cardiac arrest 08/31 with hypoxic respiratory failure with intubation 08/31-, aspiration pneumonia, bacteremia, hypovolemia, ATN, anoxic encephalopathy, dysphagia, hypoglycemia, hypomagnesemia, hypokalemia, seen with [facility] furniture repairer for assessment of anxiety. Pt was seen last week for capacity and on 09.15.23 for anxiety-sertraline cross taper and ativan prn low dose were initiated. Reviewed conversation with pt's daughter Aliyah, discussed pt's anxiety and current medical issues and how she may benefit from out patient psychiatric treatment. Pt is in agreement today and is willing to accept a referral to [facility] upon discharge. Pt is wanting to go home but believes she will need rehab prior to that, as a result she is willing to do psychotherapy/psychopharmacology in rehab if this is her plan of care. Pt denies any SI, plan or intent. She is grateful to God that she is alive and wants to continue to heal, live and be with family at home. Today, she appears more relaxed after prn Ativan used, 0.5 mg x 2 doses today. Past Psychiatric History: IP: No history OP: No history Trials: Prozac which she currently takes Medical Evaluation Reviewed: Yes Review of Systems Review of Systems Recovering from respiratory failure/cardiac arrest. [facility] Medical History Encephalopathy Erich lesion, chronic Low TSH level Episode of generalized weakness Positive fecal occult blood test GI bleed Insomnia Anemia Asthma RABIA (obstructive sleep apnea) Obesity Hypertension Thyroiditis Rheumatoid arthritis Hypothyroidism Depression Ulcer Surgical History Hx of colonoscopy History of esophagogastroduodenoscopy (EGD) Hx of hernia repair H/O lymph node biopsy Status post biopsy of uterine cervix History of appendectomy Family History: grew up in [place] with five brother Social History: lives alone - has children who are supportive Per daughter kamla Ly has become more dependent, placing the children in a parental role in caring for her over the past years. She by history is resistant to treatment and in the past has always refused referrals for psychiatric care even though family has strongly encouraged this. Substance History: Denies Trauma History: recent medical event Diagnostics Vital Signs (24Hr): Vital Signs - 24 hr 09/16/23 16:00 09/16/23 19:22 09/17/23 00:00 Temperature 96.9 F 97.0 F 97.8 F Pulse Rate 72 65 70 Respiratory Rate 12 20 18 Blood Pressure 147/83 H 141/79 H 138/86 Pulse Oximetry 97 97 Oxygen Delivery Method Nasal Cannula Nasal Cannula Nasal Cannula Oxygen Flow Rate 2 2 4 09/17/23 04:00 09/17/23 08:00 09/17/23 11:41 Temperature 97.4 F 97.8 F 97.0 F Pulse Rate 89 88 90 Respiratory Rate 18 18 18 Blood Pressure 146/80 H 112/76 119/77 Pulse Oximetry 96 95 97 Oxygen Delivery Method Nasal Cannula Nasal Cannula Nasal Cannula Oxygen Flow Rate 2 2 2 BMI result Body Mass Index 37.0 Labs 09/14/23 06:01 09/17/23 06:05 Labs: Laboratory Results - last 48 hr 09/15/23 09/15/23 09/16/23 16:01 20:06 05:34 Hold Purple Top SEE NOTE Sodium 139 Potassium 3.8 Chloride 102 Carbon Dioxide 29 Anion Gap 12 BUN 15 Creatinine 0.55 Estim Creat Clear Calc 126.7 Estimated GFR > 60 POC Glucose 184 H 145 H Random Glucose 101 Calcium 9.4 Phosphorus 2.6 L Magnesium 2.0 Vitamin B12 > 2000 H Folate 8.8 TSH 6.38 H Free T4 0.73 09/16/23 09/16/23 09/16/23 07:09 11:00 15:53 Hold Purple Top Sodium Potassium Chloride Carbon Dioxide Anion Gap BUN Creatinine Estim Creat Clear Calc Estimated GFR POC Glucose 144 H 172 H 160 H Random Glucose Calcium Phosphorus Magnesium Vitamin B12 Folate TSH Free T4 09/16/23 09/17/23 09/17/23 20:43 06:05 07:49 Hold Purple Top Sodium 140 Potassium 3.6 Chloride 101 Carbon Dioxide 28 Anion Gap 15 BUN 15 Creatinine 0.62 Estim Creat Clear Calc 113.5 Estimated GFR > 60 POC Glucose 123 H 115 Random Glucose 139 H Calcium 9.4 Phosphorus 3.0 Magnesium 1.8 Vitamin B12 Folate TSH Free T4 09/17/23 11:18 Hold Purple Top Sodium Potassium Chloride Carbon Dioxide Anion Gap BUN Creatinine Estim Creat Clear Calc Estimated GFR POC Glucose 214 H Random Glucose Calcium Phosphorus Magnesium Vitamin B12 Folate TSH Free T4 Imaging Radiology Impressions: ITS Impressions Chest X-Ray 09/01/23 11:41 IMPRESSION: 1. Endotracheal tube approximately 4.2 cm from the level of the lena. 2. Enteric tube coursing below left hemidiaphragm into the stomach. 3. Bilateral low lung volumes. 4. Patchy radiopacities throughout the bilateral lung briceno potentially representing infectious/inflammatory etiology though vascular congestion not excluded. 5. Small left pleural effusion. Chest X-Ray 09/02/23 02:40 IMPRESSION: 1. Interval placement of left approach central line with tip at the mid SVC. No pneumothorax. 2. Low lung volumes with bilateral increased markings and patchy infiltrative change, similar to the previous study. Duplex Scan Lower Extremity Artery 09/02/23 03:25 IMPRESSION: Mild plaque noted within the right common femoral and popliteal artery. No evidence of hemodynamically significant stenosis. Brain MRI 09/05/23 13:11 IMPRESSION: 1. No acute intracranial abnormalities. 2. Mild underlying microangiopathy. Chronic lacunar infarct versus prominent perivascular space along the posterior aspect of the right lentiform nucleus. Chest X-Ray 09/09/23 00:18 IMPRESSION: Moderately extensive multifocal airspace opacities bilaterally, right greater than left. Appearance in the right lung has slightly improved compared to prior. Chest X-Ray 09/12/23 09:59 IMPRESSION: 1. Persistent bilateral vascular and interstitial prominence in bilateral lungs. 2. Interval decrease in superimposed alveolar infiltrates in medial right lung especially right lower lobe. 3. Persistent small left pleural effusion or lateral left lung base focal atelectasis. Mental Status Exam Mental Status Exam Patient Appearance: Fatigued and Appropriate Patient Orientation: Person, Place and Situation Level of Consciousness: Drowsy and Alert Patient Behavior: Appropriate, Talkative, Cooperative, Anxious, Fearful, Fatigued, Distractible and Good Eye Contact Mood Description: Withdrawn, Anxious and Apprehensive Affect Description: Withdrawn, Anxious and Apprehensive Patient Cognition Impaired: No Ability to Follow Directions: Good Speech Pattern: Spontaneous Speech Memory Description: Episodic Impaired Hallucinations: None Delusions: Not Present Perceptual Disturbances: Derealization Thought Process: Rumination Thought Content: positive for [place] and positive for Circumstantial Depressive Symptoms: Increased Anxiety Judgement: Fair Medications Medications Current Medications Acetaminophen (Acetaminophen 325 Mg Tablet) 975 mg PO Q6H PRN PRN Reason: Pain, Mild (Pain Scale 1-3) Last Admin: 09/16/23 22:02 Dose: 975 mg Furosemide (Furosemide 20 Mg Tablet) 20 mg PO DAILY [facility]; Protocol Last Admin: 09/17/23 08:10 Dose: 20 mg Glucose (Glucose Gel 15 Gm Gel..Gram.) 15 gm PO Q15M PRN; Protocol PRN Reason: per Hypoglycemia Standing Ord. Glucose (Glucose Gel 15 Gm Gel..Gram.) 15 gm PO Q15M PRN; Protocol PRN Reason: per Hypoglycemia Standing Ord. Heparin Sodium (Porcine) (Heparin Sodium,Porcine 5,000 Unit/Ml Vial) 5,000 unit SUBCUT Q8H [facility] Last Admin: 09/17/23 08:10 Dose: 5,000 unit Hydroxychloroquine Sulfate (Hydroxychloroquine Sulfate 200 Mg Tablet) 200 mg PO DAILY [facility] Last Admin: 09/17/23 08:10 Dose: 200 mg Dextrose (D10) 250 mls @ 750 mls/hr IV Q15M PRN PRN Reason: per Hypoglycemia Standing Ord. Dextrose (D10) 250 mls @ 750 mls/hr IV Q15M PRN; Protocol PRN Reason: per Hypoglycemia Standing Ord. Insulin Human Lispro (Insulin Lispro 100 Unit/Ml 3 Ml Vial) 0 unit SUBCUT QIDACHS [facility]; Protocol Last Admin: 09/17/23 12:34 Dose: 4 unit Nitroglycerin (Nitroglycerin 0.4 Mg Tab.Subl) 0.4 mg SUBLINGUAL Q5MX3 PRN PRN Reason: Chest Pain Last Admin: 09/12/23 22:33 Dose: 0.4 mg Pharmacy Consult (Consult Rx Parenteral Nutrition Ordering) 1 each MISCELLANE DAILY PRN PRN Reason: Consult order Potassium Phos/Sodium Phos (Sodium,Potassium Phosphates Powd.Pack) 1 packet PO QID [facility] Last Admin: 09/17/23 12:34 Dose: 1 packet Prednisone (Prednisone 5 Mg Tablet) 5 mg PO DAILY [facility] Last Admin: 09/17/23 08:10 Dose: 5 mg Prednisone (Prednisone 20 Mg Tablet) 20 mg PO DAILY [facility] Last Admin: 09/17/23 08:10 Dose: 20 mg Sodium Biphosphate/Sodium Phosphate (Sodium Phosphate,[place]-Dibasic 133 Ml Enema) 133 ml [place] ONCE PRN PRN Reason: Constipation Last Admin: 09/07/23 12:02 Dose: 133 ml Sucralfate (Sucralfate 1 Gm Tablet) 1 gm PO BID@0630,1630 [facility] Last Admin: 09/17/23 05:35 Dose: 1 gm Allergies Allergies Allergy/AdvReac Type Severity Reaction Status Date / Time ibuprofen [From MOTRIN] Allergy Unknown ULCERS Verified 03/12/20 19:51 naproxen [From NAPROSYN] Allergy Unknown ULCERS Verified 03/12/20 19:51 Assessment & Plan Assessment & Plan (1) Acute stress reaction: Status: Acute Code(s): F43.0 - Acute stress reaction (2) Anxiety: Status: Acute Code(s): F41.9 - Anxiety disorder, unspecified Plan 62 yo female with acute stress reaction, history of social anxiety, s/p respiratory failure, cardiac arrest with intubation 08/31-09/05. Pt has tolerated low dose Sertraline and Lorazepam. Today she is agreeable to OP referral for psychotherapy and ongoing psychopharmacology. Plan: Decrease Fluoxetine to 30 mg daily Increase Sertraline to 50 mg daily Decrease Lorazepam to 0.25 mg q 12 hours prn for sx anxiety. Pt may need SNF. If so she will need ongoing follow up. If she discharges directly to home, please consider referral to [facility] for psychotherapy and psychopharmacology. Pt is agreeable to telephone or telehealth appointments. Total time managing care of this patient today ____ minutes. Patient educated on: therapeutic strategies Informed Consent: understands and further education needed
[2023-09-17 16:21] LABS: Glucose, Whole Blood 172 mg/dL (60-115)
[2023-09-17 20:50] LABS: Glucose, Whole Blood 107 mg/dL (60-115)
[2023-09-18] VITALS: BP 164/92; PULSE 68; RESP 20; TEMP 36.8; O2SAT 98
[2023-09-18 03:29] VITALS: BP 157/81; PULSE 63; RESP 20; TEMP 36.2; O2SAT 97
[2023-09-18] MEDS: Heparin Sodium,Porcine 5,000 UNIT/ML VIAL 5000 UNIT SUBCUT ×2 (03:50→09:09)
[2023-09-18 06:00] VITALS: BMI 37.1
[2023-09-18 07:33] VITALS: BP 142/84; PULSE 65; RESP 20; TEMP 36.4; O2SAT 94
[2023-09-18 07:51] LABS: Glucose, Whole Blood 104 mg/dL (60-115)
[2023-09-18] MEDS: Sertraline HCL 50 MG TABLET PO (09:04)
[2023-09-18] MEDS: Hydroxychloroquine Sulfate 200 MG TABLET PO (09:04)
[2023-09-18] MEDS: Furosemide 20 MG TABLET PO (09:04)
[2023-09-18] MEDS: FLUoxetine HCl 10 MG CAPSULE 30 MG PO (09:04)
[2023-09-18] MEDS: predniSONE 20 MG TABLET PO (09:04)
[2023-09-18] MEDS: predniSONE 5 MG TABLET PO (09:04)
[2023-09-18] MEDS: Sodium,Potassium Phosphates POWD.PACK 1 PACKET PO ×2 (09:04→12:12)
[2023-09-18] MEDS: Sucralfate 1 GM TABLET PO (09:05)
[2023-09-18 09:10] LABS: Anion Gap 14 (12-20); Blood Urea Nitrogen 13 mg/dL (9-16); Carbon Dioxide 29 mmol/L (22-29); Chloride 100 mmol/L (96-108); Creatinine Clr Calc Pharmacy 121.5; Estimated Glomerular Filt Rate > 60; Glucose Random 123 mg/dL (60-115); Magnesium 1.9 mg/dL (1.6-2.6); Potassium 3.3 mmol/L (3.3-5.1); Sodium 140 mmol/L (135-145)
[2023-09-18 11:49] VITALS: BP 141/80; PULSE 73; RESP 20; TEMP 37.1; O2SAT 94
[2023-09-18 11:57] LABS: Glucose, Whole Blood 187 mg/dL (60-115)
[2023-09-18] MEDS: Insulin Lispro 100 UNIT/ML 3 ML VIAL SUBCUT (12:11)
--- NOTE | 2023-09-18 12:13 | MHC.CLN ---
F/U PO INTAKE REMAINS VARIABLE RANGING FROM 25-100% DIET RX: CHOPPED-APPROPRIATE PACKAGE DRIER FOLLOWING FOR APPROPRIATE DIET CONSISTENCY PT RECEIVING ENSURE BID TO PROMOTE WOUND HEALING PROVIDES 700KCALS, 40G PROTEIN MONITOR PO INTAKE CLOSELY AND ENCOURAGE SUPPLEMENTS
--- NOTE | 2023-09-18 12:47 | HO.PM.IMPN ---
Subjective Subjective Date of Service: 09/18/23 Interval History: feeling well, looking forward to going to rehab Physical Exam Vital Signs: Vital Signs: Last Vital Signs Temp 98.7 F 09/18/23 11:49 Pulse 73 09/18/23 11:49 Resp 20 09/18/23 11:49 BP 141/80 H 09/18/23 11:49 Pulse Ox 94 09/18/23 11:49 O2 Del Method Nasal Cannula 09/18/23 11:49 O2 Flow Rate 2 09/18/23 11:49 FiO2 45 09/11/23 11:06 BMI result Body Mass Index 37.1 Appearance: Alert.? Oriented X2-3 cvs: rrr, [id number] . res: air entry dimisnhed ,few scattered cracles at bases. abd: no rebound or guarding ,nt, bs present. ext pulses present , no cyanosis,mild swellin . neuro:moves upper ext and wiggle toes Objective Data Active Medications Acetaminophen (Acetaminophen 325 Mg Tablet) 975 mg PO Q6H PRN PRN Reason: Pain, Mild (Pain Scale 1-3) Last Admin: 09/16/23 22:02 Dose: 975 mg Documented By: SOUMYA Fluoxetine HCl (Fluoxetine Hcl 10 Mg Capsule) 30 mg PO DAILY [facility] Last Admin: 09/18/23 09:04 Dose: 30 mg Documented By: VALENTÍN Furosemide (Furosemide 20 Mg Tablet) 20 mg PO DAILY [facility]; Protocol Last Admin: 09/18/23 09:04 Dose: 20 mg Documented By: VALENTÍN Glucose (Glucose Gel 15 Gm Gel..Gram.) 15 gm PO Q15M PRN; Protocol PRN Reason: per Hypoglycemia Standing Ord. Glucose (Glucose Gel 15 Gm Gel..Gram.) 15 gm PO Q15M PRN; Protocol PRN Reason: per Hypoglycemia Standing Ord. Heparin Sodium (Porcine) (Heparin Sodium,Porcine 5,000 Unit/Ml Vial) 5,000 unit SUBCUT Q8H [facility] Last Admin: 09/18/23 09:09 Dose: 5,000 unit Documented By: VALENTÍN Hydroxychloroquine Sulfate (Hydroxychloroquine Sulfate 200 Mg Tablet) 200 mg PO DAILY [facility] Last Admin: 09/18/23 09:04 Dose: 200 mg Documented By: VALENTÍN Dextrose (D10) 250 mls @ 750 mls/hr IV Q15M PRN PRN Reason: per Hypoglycemia Standing Ord. Dextrose (D10) 250 mls @ 750 mls/hr IV Q15M PRN; Protocol PRN Reason: per Hypoglycemia Standing Ord. Insulin Human Lispro (Insulin Lispro 100 Unit/Ml 3 Ml Vial) 0 unit SUBCUT QIDACHS [facility]; Protocol Last Admin: 09/18/23 12:11 Dose: 2 unit Documented By: VALENTÍN Lorazepam (Lorazepam 0.5 Mg Tablet) 0.25 mg PO Q12H PRN PRN Reason: Anxiety Nitroglycerin (Nitroglycerin 0.4 Mg Tab.Subl) 0.4 mg SUBLINGUAL Q5MX3 PRN PRN Reason: Chest Pain Last Admin: 09/12/23 22:33 Dose: 0.4 mg Documented By: CLEVE Pharmacy Consult (Consult Rx Parenteral Nutrition Ordering) 1 each MISCELLANE DAILY PRN PRN Reason: Consult order Potassium Phos/Sodium Phos (Sodium,Potassium Phosphates Powd.Pack) 1 packet PO QID [facility] Last Admin: 09/18/23 12:12 Dose: 1 packet Documented By: VALENTÍN Prednisone (Prednisone 5 Mg Tablet) 5 mg PO DAILY [facility] Last Admin: 09/18/23 09:04 Dose: 5 mg Documented By: VALENTÍN Prednisone (Prednisone 20 Mg Tablet) 20 mg PO DAILY [facility] Last Admin: 09/18/23 09:04 Dose: 20 mg Documented By: VALENTÍN Sertraline HCl (Sertraline Hcl 50 Mg Tablet) 50 mg PO DAILY [facility] Last Admin: 09/18/23 09:04 Dose: 50 mg Documented By: VALENTÍN Sodium Biphosphate/Sodium Phosphate (Sodium Phosphate,[place]-Dibasic 133 Ml Enema) 133 ml [place] ONCE PRN PRN Reason: Constipation Last Admin: 09/07/23 12:02 Dose: 133 ml Documented By: JULIA Sucralfate (Sucralfate 1 Gm Tablet) 1 gm PO BID@0630,1630 [facility] Last Admin: 09/18/23 09:05 Dose: 1 gm Documented By: VALENTÍN Labs 09/14/23 06:01 09/18/23 08:13 Labs: Laboratory Results - last 24 hr 09/17/23 09/17/23 09/18/23 16:17 20:45 07:36 Hold Purple Top Anion Gap Estim Creat Clear Calc Estimated GFR POC Glucose 172 H 107 104 Random Glucose Calcium Phosphorus Magnesium 09/18/23 09/18/23 08:13 11:51 Hold Purple Top SEE NOTE Anion Gap 14 Estim Creat Clear Calc 121.5 Estimated GFR > 60 POC Glucose 187 H Random Glucose 123 H Calcium 9.0 Phosphorus 3.0 Magnesium 1.9 Microbiology Microbiology Results: Microbiology 09/13/23 08:27 Blood Culture - Final Blood - Venous No growth after 5 days. 09/13/23 08:27 Blood Culture - Final Blood - Venous No growth after 5 days. Assessment and Plan (1) RABIA (obstructive sleep apnea): Status: Acute (2) Encephalopathy: Status: Acute Assessment and Plan: 62F PMH rheumatoid arthritis on methotrexate (MTX), hypertension, and hypothyroidism, admitted to ICU 09/01/23. She was brought to the emergency department in an unresponsive state, hypoxic/cyanotic, with an undetectable blood pressure and oxygen saturation in the 70s. She experienced cardiac arrest during the intubation process but regained return of spontaneous circulation (ROSC) following 2 rounds of CPR. The patient's ICU course was complicated by hypovelemic shock, shock liver, and acute tubular necrosis (ATN) due to renal hypoperfusion from profound hypotension. She was successfully extubated on 09/06/23. She completed 2 weeks iv Zosyn for suspected aspiration pneumonia. downgraded to medical floor 09/07/23. currently medically stable awaiting rehab discharge. Acute hypoxic respiratory failure due to aspiratoin pneumonia complciated by cardiac arrest, hypovolemic shock, shock liver, ATN, enterococcus bacteremia now stable on 4L, not on pressors, creatinine back to normal, completed antibiotic course s/p sleep study likely bipap 18/8, rr 12, 2L o2, awaiting official read/recs Dysphagia- Speech recommended chopped /advanced diet/thinliquids RA Methotraxate on Mondays, Prednisone 5mg daily, plaquenil Acute hepatitis d/t shocked liver LFTs trending down Hypomagnesemia/hypokalemia : replaced Obesity--should work on weight loss DVT prophylaxis-s/cHeparin full code reason for continued hospitalization: awaiting rehab set up Quality Stroke Does the patient have a stroke diagnosis?: No VTE Prior VTE?: No VTE Risk Level:: Medical - moderate - high VTE Device Contraindication: N/A - Device Ordered VTE Drug Contraindication: N/A - Med Ordered
--- NOTE | 2023-09-18 13:49 | P.DS_ITS ---
DS: Providers Provider Date of Service: 09/18/23 Date of admission: 09/01/23 12:01 Primary care physician: Jenae Khan MD Consults: 09/05/23 15:47 Consult to Wound Care Routine Reason for consultation: Sacrococcygeal and Right Knee 09/09/23 09:37 Consult to Pulmonology Routine Consulting Provider: [facility] Pulmonology Services Reason for consultation: respiratory failure, multifocal pneumonia Has provider been notified: Yes 09/09/23 18:52 Consult to Cardiology Routine Consulting Provider: [facility] Cardiovascular Services Reason for consultation: heart failure, fluid overload Has provider been notified: Yes 09/11/23 14:03 Consult to Psychiatry Routine Consulting Provider: Psych Covering Reason for consultation: competency eval Has provider been notified: No 09/13/23 07:41 Consult to Infectious Diseases Routine Consulting Provider: [facility] Infectious Disease Reason for consultation: aspirtional penumonia /enterococcus bacteremia Has provider been notified: No 09/14/23 09:24 Consult to Psychiatry Routine Consulting Provider: Psych Covering Reason for consultation: Severe anxiety Has provider been notified: No 09/17/23 01:30 Consult to Wound Care Routine Reason for consultation: stage 2 right buttock DS: Diagnosis Discharge Diagnosis (1) RABIA (obstructive sleep apnea): Status: Acute (2) Encephalopathy: Status: Acute DS: Summary Hospital Course Hospital Course: from initial hpi: 62-year-old lady with underlying history of rheumatoid arthritis, hypertension, hypothyroidism admitted on 09/01/2023 with hypoxia. Upon arrival to ER patient noted to be cyanotic with no measurable blood pressure and O2 saturation in 70s. Patient was intubated with tanja intubation cardiac arrest with return of spontaneous circulation after 2 rounds of CPR. Patient admitted to the intensive care unit. hospital course: Patient was admitted for acute hypoxic respiratory failure due to aspiration pneumonia complicated by cardiac arrest, hypovolemic shock, shock liver, acute tubular necrosis, Enterococcus bacteremia. She was treated with 2 weeks of IV Zosyn, pressor support, eventually extubated successfully on 09/06/2023. Renal function returned to normal, liver function improved. Was seen by SERVICE TRANSFORMER REPAIR SUPERVISOR recommended ndd3 solids and thin liquids with aspiration precautions. Patient underwent sleep study and recommended for BiPAP 25/01 with a respiratory rate of 12 on 2 L of oxygen while sleeping. For rheumatoid arthritis she is on methotrexate and Mondays, prednisone 5 mg daily and Plaquenil. Course complicated by acute hypomagnesemia and hypokalemia which was replaced. Patient had some post ICU delirium and acute metabolic encephalopathy which appears to have resolved. For obesity weight loss recommended. Due to prolonged hospitalization and debility patient was seen by physical therapy recommended rehab to which patient will be discharged. Time Attestation Discharge Coordination Time (in mins): 35 Quality: Safe Use of Opioids Does Pt have an Active Cancer Diagnosis on the Problem List?: No Quality: Stroke Does the patient have a stroke diagnosis?: No Physical Exam Vital Signs: Vital Signs: Last Vital Signs Temp 98.7 F 09/18/23 11:49 Pulse 73 09/18/23 11:49 Resp 20 09/18/23 11:49 BP 141/80 H 09/18/23 11:49 Pulse Ox 94 09/18/23 11:49 O2 Del Method Nasal Cannula 09/18/23 11:49 O2 Flow Rate 2 09/18/23 11:49 FiO2 45 09/11/23 11:06 BMI result Body Mass Index 37.1 Appearance: Alert.? Oriented X2-3 cvs: rrr, [id number] . res: air entry dimisnhed ,few scattered cracles at bases. abd: no rebound or guarding ,nt, bs present. ext pulses present , no cyanosis,mild swellin . neuro:moves upper ext and wiggle toes DS: Data Data Completed and Pending Completed studies during hospitalization [Text1]: Procedures Excision of Duodenum, Via Natural or Artificial Opening Endoscopic, Diagnostic (03/12/20) Excision of Stomach, Pylorus, Via Natural or Artificial Opening Endoscopic, Diagnostic (01/03/21) Excision of Transverse Colon, Via Natural or Artificial Opening Endoscopic, Diagnostic (03/12/20) Transfusion of Nonautologous Red Blood Cells into Peripheral Vein, Percutaneous Approach (03/12/20) Labs on day of discharge: Laboratory Results - last 24 hr 09/17/23 09/17/23 09/18/23 16:17 20:45 07:36 Hold Purple Top Sodium Potassium Chloride Carbon Dioxide Anion Gap BUN Creatinine Estim Creat Clear Calc Estimated GFR POC Glucose 172 H 107 104 Random Glucose Calcium Phosphorus Magnesium 09/18/23 09/18/23 08:13 11:51 Hold Purple Top SEE NOTE Sodium 140 Potassium 3.3 Chloride 100 Carbon Dioxide 29 Anion Gap 14 BUN 13 Creatinine 0.58 Estim Creat Clear Calc 121.5 Estimated GFR > 60 POC Glucose 187 H Random Glucose 123 H Calcium 9.0 Phosphorus 3.0 Magnesium 1.9 Discharge Plan Discharge Anticipated Discharge Date/Time: 09/18/23 13:47 Patient Disposition: Xfer SNF Discharge Diagnosis: cardiac arrest, aspiration Referrals: [facility] [Other] - 1 Week ([facility] WILL ORDER YOUR CPAP THROUGH [facility] AND WILL SET UP YOUR HOME CPAP WITH [facility] FOR WHEN YOU GO HOME. ) [facility] [Outside] - 1 Day (SHORT TERM REHAB) Jenae Khan MD [Primary Care Provider] - 1 Week Saroj Hess MD [Physician] - 1 Month (Please make an appt w/your arthritis doctor if you would like to restart on your medication. ) Discharge Medications: New furosemide 20 mg Tablet 20 mg PO DAILY Qty: 0 0RF Protocol: Hold for SBP< HOLD for SBP < : 90 Continued prednisone 5 mg tablet 1 tab PO DAILY ferrous sulfate 325 mg (65 mg iron) tablet 1 tab PO DAILY Rx Instructions: with breakfast hydroxychloroquine 200 mg tablet 1 tab PO DAILY sucralfate 1 gram tablet 1 g PO BID Qty: 60 0RF Rx Instructions: before breakfast and dinner pantoprazole 40 mg tablet,delayed release (DR/EC) 1 tab PO DAILY@0630 fluoxetine 40 mg capsule 1 cap PO DAILY gabapentin 300 mg capsule 300 mg PO BEDTIME Discontinued oxycodone 10 mg tablet 10 mg PO BID PRN (Reason: Pain, Moderate) Discharge Orders: Discharge Order (Routine); Ordered 09/18/23 Ordered By: Josr Fuentes Diet: NDD3 solids, thin liquids Activity on Discharge: As tolerated Stand Alone Forms: Patient Portal Discharge page Print Language: Kazakh Care Plan Goals: recovery Health Concerns: aspiration Plan of Treatment: rehab, ndd3 solids, thin liquids Assessment: see above
--- NOTE | 2023-09-18 13:59 | MHC.CM.PN ---
PT MEDICALLY CLEARED FOR DC TO STR AT [facility], [facility] AND [facility] TO SEND AT [id number] FOR TRANSPORT W/BOOKING ID#[id number]
--- NOTE | 2023-09-18 15:23 | PC.RT ---
pt [facility] Once the sleep that pt had here at [facility] is finalized with the reading and settings, then [facility] will fax it to [facility] then a bipap can be ordered through [facility]
[2023-09-18 16:00] VITALS: BP 129/85; PULSE 72; RESP 20; TEMP 36.7; O2SAT 96
[2023-09-18 16:08] LABS: Glucose, Whole Blood 140 mg/dL (60-115)
--- NOTE | 2023-09-18 16:27 | HO.WOUND ---
Wound Consult: Follow up 62yr old?F admitted [place] [facility] [place] - See progress notes and H&P for detailed history.? Wound consult follow up for Sacral area and right knee.? Patient is no longer ICU level of care remains on [facility] unit. At time of arrival to bedside - patient was agreeable to reposition and assessment. Chart review reveals patient was found down - see chart for details. The patient has significant history see H&P for details. Right Knee - Initial Assessment Right Knee Follow up assessment Etiology: Resolving Deep Tissue Injury in Evolution -??Present on Admission Wound Bed: Intact dark purple maroon nonblanchable tissue Drainage / Odor: None Edges: ? Irregular Holli wound: ? intact nonblanchable tissue, decreased swelling noted Goals of Treatment: ?May leave open to air and protect from trauma Sacrococcygeal Initial Assessment Sacrococcygeal (Sacrum, Coccyx and Buttock) Etiology: Declared Stage 2 Pressure Injury POA - intial presented as Deep Tissue Injury in Evolution -??Present on Admission Wound Bed: 3 areas of partial thickness tissue loss with red moist wound bed - surrounding area Intact dark purple nonblanchable and blanchable tissue - Drainage / Odor: None Edges: ? Irregular Holli wound:MASD - ?red irregular maroon intact tissue Pain: denies Goals of Treatment: Triad and foam dressing to protect from friction and moisture and off load pressure No new topical recommendations. Recommendations: 1. Turn and Reposition every 2 hours and as needed for patient comfort.? Use pillows or wedges to support off loading positions. 2. Off Load all bony prominences with use of pillows and heel boots if needed.? Apply Preventative foams where needed. ? 3. Monitor for incontinence and moisture control, use barrier creams when needed for prevention and treatment. 4. Provide adequate and supplemental nutrition.? 5. Continue low air loss mattress. 6. When applicable maintain blood glucose levels per Providers order. 7. Right Knee - may leave CRISTÓBAL at this time. Continue to protect from friction and trauma. 8. Sacrococcygeal - Cleanse with ph balanced cleanser, pat dry. Apply Triad followed by sacral foam dressing. If foam dressing continues to be soiled discontinue and continue with Triad alone. Re-consult wound care Nurse for wound deterioration or wound changes.
--- NOTE | 2023-09-18 17:15 | MHC.SL.SWA ---
Risk of Aspiration Due to: Medically Fragile Dysphasia Diet Status: NO CHANGE Liquid Consistency and Strategies for Safe Swallow: Liquid Intake Recommendation: Thin Liquid Intake Strategies: Unrestricted Solid Food Consistency: Dietary Recommendations: Chopped/Advanced (NDD3) Oral Medication Intake: Whole with Puree Please contact the pharmacy regarding appropriate crushable or liquid drug formulations that are available whenever modified delivery is recommended. Compensatory Strategies and Precautions to be Taken for Safe Swallow: Sitting Upright (90 deg) Small Bites and Sips Alternate Liquids/Solids Rate of Ingestion Change Supervision While Eating and Drinking for Safe Swallow: Total Supervision (1:1) Foods to Avoid: Mixed consistencies, difficult to chew solids. Swallowing Recommended Treatments: Compens. Strategy Educat. Recommendation for Speech: Recommend patient continue w/ Chopped/Advanced Solids (NDD3) and Thin Liquids. Meds Whole with Puree. Requires 1:1 SUPERVISION for ALL PO. Supervision required to provide assistance w/ tray as needed, ensure proper positioning in bed, and provide cueing for safe eating strategies. Assistance feeding as needed. Ensure that is positioned in bed as close to 90 degrees as possible. 45 degrees at minimum, but more preferably closer to at least 70 degrees. PATIENT SHOULD NOT BE LYING DOWN WHILE EATING/DRINKING (family has acknowledged this is a habit at home and is an unsafe practice). Cues for safe eating include alternating liquids and solids, not talking w/ food in mouth, and swallowing one bite before introducing the next. Recommend continued [employer]SULTANT tx for dysphagia at next level of care. Dance Coach Clinican/Clinical Fellow: No Supervisory Statement: I have reviewed and agree with the student/clinical fellow's documentation: N/A Speech Language Pathologist: Nancy Palacio M.A., CCC-[employer] MARK[employer] CONSULTANT
--- NOTE | 2023-09-24 08:58 | MHC.CM.PN ---
POST DC NOTE, CM RECEIVED COPY OF PT'S SLEEP STUDY FROM RESPIRATORY, SLEEP STUDY FAXED TO [facility] AT [facility] [phone], FOLLOW UP MESSAGE ALSO SENT TO [facility].
--- NOTE | 2023-09-25 13:29 | P.CDIM_ITS ---
PROVIDER RESPONSE TEXT: To clarify, the appropriate diagnosis supported by the clinical indicators: Sepsis is/was present on admission and is a clinical diagnosis QUERY TEXT: PHYSICIAN'S DOCUMENTATION REQUEST Date of Query: 09/25/2023 01:11 PM EDT Patient Name: Jane Mcdonald Admit Date: 09/01/2023 Dear Josr Fuentes, A review of the medical record indicates additional documentation may be needed. Please review below and update the documentation accordingly. Documentation on progress note dated 09/01/23, 09/02/23 included the diagnosis of sepsis. The patient's infectious clinical indicators include: Zosyn since 08/31 for suspected aspiration pneumonia On 09/01/23: WBC 7.6 LA 11.3 Temperature 101.3, Pulse 107, RR 28 Sepsis is not documented in the Discharge Summary 09/18/23 Recognized standard criteria for this condition and other infectious definitions includes: Sepsis Systemic manifestations of infection, with 2 or more SIRS criteria which include: Fever > 100.4?F or hypothermia < 96.8?F Leukocytosis - WBC > 12,000 or leukopenia, WBC < 4,000, or > 10% bands Tachycardia- > 90 beats/minute Tachypnea- RR > 20 breaths/minute or PaCO2 < 32mmHg Source: Merck Manual 2013 Documentation should include the known or suspected organism, and the underlying infection, such as U TI or pneumonia Based on the above information and the recognized standard for sepsis, could you please clarify if th is diagnoses is still accurate and reflective of the patient's condition to ensure quality of the medical record. Sepsis is/was present on admission and is a clinical diagnosis After study, Sepsis has been ruled out Other (explain) Clinically unable to determine (explain) Thank you, Bertha Figueroa RN Use of terms such as suspected, likely, concern for, or probable (associated with a specific diagnosi s that is being evaluated, monitored, or treated as if it exists) are acceptable and can be coded in the inpatient se tting, when documented at the time of discharge. Please use your independent medical judgment in providing your response. THIS QUERY IS PART OF THE PERMANENT MEDICAL RECORD
== END 2023-09-18 19:29 | disposition skilled nursing facility (03) | DRG 870 ==
LOC: HO.ED 12:20 → HO.EDOVER 12:23 → HO.ICU 12:25 → HO.IMC 09-07 15:25
PROVIDERS: Clinical Nurse Specialist Psychiatric/Mental Health, Adult; Internal Medicine; Nurse Practitioner Family; Physician Assistant Medical; Registered Nurse Community Health; Student in an Organized Health Care Education/Training Program; Admitting Provider Internal Medicine Pulmonary Disease; Emergency Provider Emergency Medicine; PCP Pediatrics; Visit Provider Internal Medicine
DX: A41.9 Sepsis, unspecified organism (principal); I46.9 Cardiac arrest, cause unspecified; J96.01 Acute respiratory failure with hypoxia; N17.0 Acute kidney failure with tubular necrosis; R65.21 Severe sepsis with septic shock; K72.00 Acute and subacute hepatic failure without coma; J69.0 Pneumonitis due to inhalation of food and vomit; R57.8 Other shock; R57.1 Hypovolemic shock; G93.40 Encephalopathy, unspecified; G93.1 Anoxic brain damage, not elsewhere classified; E66.2 Morbid (severe) obesity with alveolar hypoventilation; E87.3 Alkalosis; E83.42 Hypomagnesemia; E87.6 Hypokalemia; R13.10 Dysphagia, unspecified; F40.10 Social phobia, unspecified; E87.79 Other fluid overload; I10 Essential (primary) hypertension; M06.9 Rheumatoid arthritis, unspecified; Z71.3 Dietary counseling and surveillance; L89.156 Pressure-induced deep tissue damage of sacral region; E16.2 Hypoglycemia, unspecified; B95.2 Enterococcus as the cause of diseases classified elsewhere; Z68.37 Body mass index [BMI] 37.0-37.9, adult; E03.9 Hypothyroidism, unspecified; Z20.822 Contact with and (suspected) exposure to COVID-19; Z79.52 Long term (current) use of systemic steroids; Z79.631 Long term (current) use of antimetabolite agent; Z79.899 Other long term (current) drug therapy
CPT/HCPCS: 0241U; 36415; 36600; 70551; 71045; 80048; 80053; 80143; 80179; 80307; 81001; 82040; 82140; 82550; 82607; 82746; 82803; 82947; 83605; 83735; 83880; 84100; 84439; 84443; 84484; 85007; 85025; 85027; 85610; 85730; 86850; 86870; 86885; 86900; 86901; 86920; 86922; 87040; 87077; 87186; 87205; 92526; 92610; 92950; 93005; 93306; 93926; 94002; 94003; 94660; 94799; 97110; 97112; 97163; 97167; 97530; 99284; C1758; C9113; J0171; J0330; J0613; J1170; J1644; J1940; J2060; J2250; J2270; J2543; J2704; J2920; J3010; J3475; J3480; P9047

== ENCOUNTER → 2023-09-01 10:26 | Outpatient (BNV) | payer OTHER, SELFPAY | PROVIDERS: Admitting Provider Internal Medicine Pulmonary Disease; Emergency Provider Emergency Medicine; PCP Pediatrics; Visit Provider Internal Medicine Cardiovascular Disease | DX: I46.9 Cardiac arrest, cause unspecified (principal) | CPT/HCPCS: 93010 ==

== ENCOUNTER 2023-09-01 12:01 | Outpatient (BNV) | payer OTHER, SELFPAY | END 2023-09-12 22:16 | PROVIDERS: Admitting Provider Internal Medicine Pulmonary Disease; Emergency Provider Emergency Medicine; PCP Pediatrics; Visit Provider Internal Medicine Cardiovascular Disease | DX: R07.9 Chest pain, unspecified (principal) | CPT/HCPCS: 93010 ==

== ENCOUNTER 2023-09-01 12:01 | Outpatient (BNV) | payer OTHER, SELFPAY | END 2023-09-03 07:00 | PROVIDERS: Admitting Provider Internal Medicine Pulmonary Disease; Emergency Provider Emergency Medicine; PCP Pediatrics; Visit Provider Internal Medicine Cardiovascular Disease | DX: I46.9 Cardiac arrest, cause unspecified (principal) | CPT/HCPCS: 93306 ==

== ENCOUNTER → 2023-09-01 12:01 | Outpatient (BNV) | payer OTHER, SELFPAY | PROVIDERS: Admitting Provider Internal Medicine Pulmonary Disease; Emergency Provider Emergency Medicine; PCP Pediatrics; Visit Provider Nurse Practitioner Family | DX: I46.9 Cardiac arrest, cause unspecified (principal); J96.01 Acute respiratory failure with hypoxia; J69.0 Pneumonitis due to inhalation of food and vomit; G93.41 Metabolic encephalopathy | CPT/HCPCS: 36556; 99291; 99499 ==

== ENCOUNTER → 2023-09-01 12:01 | Outpatient (BNV) | payer OTHER, SELFPAY | PROVIDERS: Admitting Provider Internal Medicine Pulmonary Disease; Emergency Provider Emergency Medicine; PCP Pediatrics; Visit Provider Internal Medicine | DX: G93.40 Encephalopathy, unspecified (principal) | CPT/HCPCS: 99231; 99232; 99233; 99239; 99499 ==

== ENCOUNTER → 2023-09-01 12:01 | Outpatient (BNV) | payer OTHER, SELFPAY | PROVIDERS: Admitting Provider Internal Medicine Pulmonary Disease; Emergency Provider Emergency Medicine; PCP Pediatrics; Visit Provider Internal Medicine | DX: G93.40 Encephalopathy, unspecified (principal); T17.900A Unspecified foreign body in respiratory tract, part unspecified causing asphyxiation, initial encounter; R57.9 Shock, unspecified | CPT/HCPCS: 99222 ==

== ENCOUNTER → 2023-09-01 12:01 | Outpatient (BNV) | payer OTHER, SELFPAY | PROVIDERS: Admitting Provider Internal Medicine Pulmonary Disease; Emergency Provider Emergency Medicine; PCP Pediatrics; Visit Provider Internal Medicine Cardiovascular Disease | DX: J96.01 Acute respiratory failure with hypoxia (principal) | CPT/HCPCS: 99222 ==

== ENCOUNTER → 2023-09-01 12:01 | Outpatient (BNV) | payer OTHER, SELFPAY | PROVIDERS: Admitting Provider Internal Medicine Pulmonary Disease; Emergency Provider Emergency Medicine; PCP Pediatrics; Visit Provider Clinical Nurse Specialist Psychiatric/Mental Health | DX: F43.0 Acute stress reaction (principal); F41.9 Anxiety disorder, unspecified | CPT/HCPCS: 99223; 99232; 99499 ==

== ENCOUNTER → 2023-09-01 12:01 | Outpatient (BNV) | payer OTHER, SELFPAY | PROVIDERS: Admitting Provider Internal Medicine Pulmonary Disease; Emergency Provider Emergency Medicine; PCP Pediatrics; Visit Provider Internal Medicine Pulmonary Disease | DX: I46.9 Cardiac arrest, cause unspecified (principal); K72.00 Acute and subacute hepatic failure without coma; N17.9 Acute kidney failure, unspecified; J96.01 Acute respiratory failure with hypoxia; R57.9 Shock, unspecified; T17.900A Unspecified foreign body in respiratory tract, part unspecified causing asphyxiation, initial encounter; M06.9 Rheumatoid arthritis, unspecified; E03.9 Hypothyroidism, unspecified | CPT/HCPCS: 99223; 99233; 99291 ==

== ENCOUNTER 2023-10-18 02:32 | Emergency (ER) | payer OTHER, SELFPAY ==
--- NOTE | 2023-10-18 | ECG_ITS ---
Test Reason : ABD PAIN Blood Pressure : / mmHG Vent. Rate : 064 BPM Atrial Rate : 064 BPM P-R Int : 130 ms QRS Dur : 104 ms QT Int : 444 ms P-R-T Axes : 048 037 032 degrees QTc Int : 458 ms Normal sinus rhythm Normal ECG When compared with ECG of 12-SEP-2023 22:16, T wave inversion no longer evident in Anterior leads QT has lengthened Referred By: Generic ED Physician Electronically Signed By:Pollo Pineda
--- NOTE | ~2023-10-18 | CT_ITS ---
EXAMINATION: CT ABDOMEN AND PELVIS WITH CONTRAST CLINICAL INFORMATION: Reason for Exam LUQ/epigastric pain, hx ulcers COMPARISON: 01/03/2021 TECHNIQUE: Multidetector volumetric images were obtained from the superior aspect of the liver through the pubic symphysis following administration 85 mL of Omnipaque 350 intravenous contrast. Sagittal and coronal reformatted images were obtained on the technologist's workstation. Oral contrast: No This CT examination was performed using dose optimization techniques as appropriate, variously including the following: *Automated exposure control *Adjustment of mA and/or kV according to patient size (this includes techniques or standardized protocols for targeted exams where dose is matched to indication/reason for exam; i.e. extremities or head) *Use of iterative reconstruction technique DLP: 973 mGy-cm FINDINGS: LUNG BASES: Mild dependent atelectasis. Coronary artery calcifications are present. LIVER, GALLBLADDER, AND BILIARY TREE: The liver is normal in size, shape, and attenuation. No focal hepatic lesion or biliary ductal dilatation is present. Cholelithiasis is noted. No appreciable gallbladder wall thickening or surrounding inflammation. PANCREAS: Unremarkable. SPLEEN: Unremarkable. ADRENAL GLANDS: Unremarkable. KIDNEYS AND URETERS: Bilateral nephrograms are symmetric. No hydronephrosis or obstructing calculus identified. Small bilateral renal hypodensities favor cysts; no follow-up recommended. BLADDER: Minimally distended and grossly unremarkable. GASTROINTESTINAL TRACT: No evidence of bowel obstruction or significant wall thickening. Moderate to large volume of stool throughout the colon. No free fluid or free air is seen. ABDOMINAL WALL: No significant hernia is appreciated. LYMPH NODES: Normal. VASCULAR: Scattered atherosclerotic calcifications. PELVIC VISCERA: Unremarkable. OSSEOUS STRUCTURES: Severe degenerative changes of the bilateral hips. CT/CT abdomen pelvis w IV con IMPRESSION: 1. No acute findings identified in the abdomen/pelvis. Moderate to large volume of stool throughout the colon. 2. Cholelithiasis. 3. Coronary artery calcifications. Correlation with cardiac risk factors is recommended.
[2023-10-18 02:48] VITALS: BP 150/94; BP 152/90; PULSE 68; PULSE 71; RESP 16; TEMP 36.8; O2SAT 95; O2SAT 97; BMI 40.6
--- NOTE | 2023-10-18 03:07 | PC.NURSE ---
#20 PIV initiated to left wrist, blood collected and sent to lab.
[2023-10-18 03:15] LABS: MANUAL DIFF FLAG NO
[2023-10-18 03:17] LABS: Basophils Absolute Auto 0.1 X10*3/uL (0.0-0.2); Basophils Percent Auto 0.6 % (0-2); Eosinophils Absolute Auto 0.1 X10*3/uL (0.0-0.4); Eosinophils Percent Auto 1.3 % (0-4); Hematocrit 41.5 % (37.0-47.0); Hemoglobin 13.9 g/dl (12.0-16.0); Imm Gran Abs Auto 0.04 X10*3/uL (0.00-0.03); Imm Gran Pct Auto 0.4 % (0.0-0.4); Lymphocytes Absolute Auto 2.1 X10*3/uL (1.2-4.9); Lymphocytes Percent Auto 22.2 % (20-40); Mean Corpuscular HGB Conc 33.5 g/dl (31.0-35.0); Mean Corpuscular Hemoglobin 31.7 pg (27.0-33.0); Mean Corpuscular Volume 94.7 fL (80.0-98.0); Mean Platelet Volume 9.3 fL (9.4-12.3); Monocytes Absolute Auto 0.8 X10*3/uL (0.1-1.2); Monocytes Percent Auto 8.1 % (2-11); Neutrophils Absolute Auto 6.4 x10*3/uL (2.0-8.3); Neutrophils Percent Auto 67.4 % (45-73); Platelet Count 304 X10*3/uL (160-400); Red Blood Count 4.38 X10*6/uL (4.20-5.50); Red Cell Distribution Width 14.3 % (11.0-16.0); White Blood Count 9.5 X10*3/uL (4.8-10.8)
[2023-10-18 03:35] LABS: Alanine Aminotransferase 17 U/L (0-31); Albumin Level 3.8 g/dL (3.5-5.0); Alkaline Phosphatase 133 U/L (39-117); Anion Gap 15 (12-20); Aspartate Amino Transferase 19 U/L (5-31); Bilirubin Direct 0.2 mg/dL (0.0-0.5); Bilirubin Total 0.5 mg/dL (0.0-1.0); Blood Urea Nitrogen 14 mg/dL (9-16); Calcium 9.8 mg/dL (8.4-10.2); Carbon Dioxide 30 mmol/L (22-29); Chloride 97 mmol/L (96-108); Creatinine Clr Calc Pharmacy 101.4; Estimated Glomerular Filt Rate > 60; Glucose Random 123 mg/dL (60-115); Lipase 80 U/L (8-78); Potassium 4.4 mmol/L (3.3-5.1); Sodium 138 mmol/L (135-145)
[2023-10-18 04:04] LABS: Troponin-I High Sensitivity < 2.7 ng/L (<3.5-17.0)
--- NOTE | 2023-10-18 04:17 | ED.ABDPAIN ---
HPI - Abdominal Pain General Chief Complaint: Abdominal Pain Stated Complaint: Abd pain Time Seen by Provider: 10/18/23 04:02 Source: patient and EMS Mode of arrival: EMS Limitations: no limitations History of Present Illness HPI narrative: Patient comes to the emergency room complaining of right upper quadrant pain that started around 10 hours ago. Patient also complaining of mild arm pain and knee pain on the right. Patient denies any falls or any injuries. Patient denies nausea vomiting or diarrhea. Related Data Home Medications ?Medication ?Instructions ?Recorded ?Confirmed pantoprazole 40 mg tablet,delayed 1 tab PO DAILY@0630 03/12/20 09/01/23 release ferrous sulfate 325 mg (65 mg 1 tab PO DAILY 01/03/21 09/01/23 iron) tablet hydroxychloroquine 200 mg tablet 1 tab PO DAILY 01/03/21 09/01/23 prednisone 5 mg tablet 1 tab PO DAILY 01/03/21 09/01/23 fluoxetine 40 mg capsule 1 cap PO DAILY 04/22/21 09/01/23 gabapentin 300 mg capsule 300 mg PO BEDTIME 09/01/23 09/01/23 Previous Rx's ?Medication ?Instructions ?Recorded sucralfate 1 gram tablet 1 g PO BID #60 tabs 01/04/21 furosemide 20 mg tablet 20 mg PO DAILY #0 tabs 09/18/23 Allergies Allergy/AdvReac Type Severity Reaction Status Date / Time ibuprofen [From MOTRIN] Allergy Unknown ULCERS Verified 10/18/23 02:50 naproxen [From NAPROSYN] Allergy Unknown ULCERS Verified 10/18/23 02:50 Review of Systems Review of Systems Constitutional : No Weight loss, No Fever, No Chills, No Night Sweats, No Fatigue, No Malaise ENT/Mouth : No Hearing loss, No Ear Pain, No Nasal Congestion, No Sinus Pain, No Hoarseness, No sore throat, No Rhinorrhea, No Swallowing Difficulty Eyes: No Eye Pain, No Swelling, No Redness, No Foreign Body, No Discharge, No Vision Changes Cardiovascular : No Chest Pain, No SOB, No Dyspnea on Exertion, No Orthopnea, No Edema, No Palpitations Respiratory : No Cough, No Sputum, No Wheezing, No Smoke Exposure, No Dyspnea Gastrointestinal : No Nausea, No Vomiting, No Diarrhea, No Constipation, complaining of right upper quadrant pain, right shoulder pain and right knee pain for 10 hours Genitourinary : no irregular bleeding, No Dysuria, No Urinary Frequency, No Hematuria, No Urinary Incontinence, No Urgency, No Flank Pain, No Urinary Flow Changes, No Hesitancy Musculoskeletal : No joint pain, No Myalgias, No Joint Swelling Skin : No Skin Lesions, No rash Neuro : No Weakness, No Numbness, No Paresthesias, No Loss of Consciousness, No Dizziness, No Headache Psych : No Anxiety/Panic, No Depression, No SI/HI/AH/VH, No Social Issues, Heme/Lymph: No Bruising, No Bleeding,No Lymphadenopathy Endocrine : No Polyuria, No Polydipsia, No Temperature Intolerance [facility] Past Medical History Medical History Encephalopathy Erich lesion, chronic Low TSH level Episode of generalized weakness Positive fecal occult blood test GI bleed Insomnia Anemia Asthma RABIA (obstructive sleep apnea) Obesity Hypertension Thyroiditis Rheumatoid arthritis Hypothyroidism Depression Ulcer Surgical History Hx of colonoscopy History of esophagogastroduodenoscopy (EGD) Hx of hernia repair H/O lymph node biopsy Status post biopsy of uterine cervix History of appendectomy Family History Family History Other Cirrhosis Social History Social History Household Members: Unknown / Unable to assess Housing: House Do you presently have visiting nurse or other home services: Yes (WATER QUALITY MANAGER) Alcohol intake: never Comment: RN sitting at station outside pt's room Patient Tobacco Use Status: Never used Tobacco Advance Directives: Yes Advance Directives on File: Yes Advance Directives Date on File: 03/22/20 Do you have a plan to hurt others: No Plan service: No Current occupational status: disabled 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 Oriented X3. No acute distress. Eyes: Pupils equal, round and reactive to light. ENT: Pharynx normal. Neck: Normal inspection. Neck supple. No lymph nodes noted. No crepitus CVS: Normal heart rate and rhythm. Pulses normal. Normal S1 and S2 Respiratory: No respiratory distress. Breath sounds normal. No Wheezing. No rales Abdomen: Soft, mild pain to deep palpation over the epigastric area, no rebound, no guarding, No rigidity. No distention. Skin: Skin warm and dry. Normal skin color. Normal skin turgor. Extremities: No lower extremity edema. No Lacerations. No Rash Neuro: Oriented X 3. No motor deficit. No sensory deficit. Moving all extremities. No slurred speech. CN 2 through 12 grossly intact Psych: calm, cooperative, normal affect Course Course Course Narrative: - Medical Decision Making Medical Decision Making [facility] Narrative: -my interpretation of labs: Normal hematology, normal chemistry, LFTs at baseline, negative troponin, lipase 80, very slightly bumped. -my interpretation of CT scan, no obvious abnormality. Differential Diagnosis Differential Diagnoses: The differential diagnosis associated with the presentation includes (Cholecystitis, pancreatitis, SBO, functional abdominal pain) Admission/Observation Consideration of admission/observation: Escalation of care including admission/observation considered (Given patient's symptoms, admission/observation was considered) Lab Data [facility] Lab Attestation statement: I reviewed the patient's lab results. 10/18/23 03:07 10/18/23 03:07 Labs: Lab Results 10/18/23 Range/Units 03:07 WBC 9.5 (4.8-10.8) X10*3/uL RBC 4.38 (4.20-5.50) X10*6/uL Hgb 13.9 (12.0-16.0) g/dl Hct 41.5 (37.0-47.0) % MCV 94.7 (80.0-98.0) fL MCH 31.7 (27.0-33.0) pg MCHC 33.5 (31.0-35.0) g/dl RDW 14.3 (11.0-16.0) % Plt Count 304 D (160-400) X10*3/uL MPV 9.3 L (9.4-12.3) fL Immature Gran % (Auto) 0.4 (0.0-0.4) % Neut % (Auto) 67.4 (45-73) % Lymph % (Auto) 22.2 (20-40) % [place] % (Auto) 8.1 (2-11) % Eos % (Auto) 1.3 (0-4) % Baso % (Auto) 0.6 (0-2) % Lymph # (Auto) 2.1 (1.2-4.9) X10*3/uL [place] # (Auto) 0.8 (0.1-1.2) X10*3/uL Eos # (Auto) 0.1 (0.0-0.4) X10*3/uL Baso # (Auto) 0.1 (0.0-0.2) X10*3/uL Abs Immat Gran (auto) 0.04 H (0.00-0.03) X10*3/uL Absolute Neuts (auto) 6.4 (2.0-8.3) x10*3/uL Absolute Nucleated RBC 0.000 (0.0-0.012) X10*3/uL Nucleated RBC % (auto) 0.0 (0.0-0.2) /100WBC Hold Blue Top SEE NOTE Sodium 138 (135-145) mmol/L Potassium 4.4 D (3.3-5.1) mmol/L Chloride 97 (96-108) mmol/L Carbon Dioxide 30 H (22-29) mmol/L Anion Gap 15 (12-20) BUN 14 (9-16) mg/dL Creatinine 0.63 (0.5-1.4) mg/dL Estim Creat Clear Calc 101.4 Estimated GFR > 60 Random Glucose 123 H (60-115) mg/dL Calcium 9.8 D (8.4-10.2) mg/dL Total Bilirubin 0.5 (0.0-1.0) mg/dL Direct Bilirubin 0.2 (0.0-0.5) mg/dL AST 19 (5-31) U/L ALT 17 (0-31) U/L Alkaline Phosphatase 133 H (39-117) U/L Troponin I High Sens < 2.7 (<3.5-17.0) ng/L Total Protein 8.0 (6.5-8.0) g/dL Albumin 3.8 (3.5-5.0) g/dL Lipase 80 H (8-78) U/L Independent Interpretation I performed an independent interpretation of an: CT Scan Radiology Impression Discussion of test interpretation with radiology: I have reviewed the radiologist's reading. Radiologist Impression: FINDINGS: LUNG BASES: Mild dependent atelectasis. Coronary artery calcifications are present. LIVER, GALLBLADDER, AND BILIARY TREE: The liver is normal in size, shape, and attenuation. No focal hepatic lesion or biliary ductal dilatation is present. Cholelithiasis is noted. No appreciable gallbladder wall thickening or surrounding inflammation. PANCREAS: Unremarkable. SPLEEN: Unremarkable. ADRENAL GLANDS: Unremarkable. KIDNEYS AND URETERS: Bilateral nephrograms are symmetric. No hydronephrosis or obstructing calculus identified. Small bilateral renal hypodensities favor cysts; no follow-up recommended. BLADDER: Minimally distended and grossly unremarkable. GASTROINTESTINAL TRACT: No evidence of bowel obstruction or significant wall thickening. Moderate to large volume of stool throughout the colon. No free fluid or free air is seen. ABDOMINAL WALL: No significant hernia is appreciated. LYMPH NODES: Normal. VASCULAR: Scattered atherosclerotic calcifications. PELVIC VISCERA: Unremarkable. OSSEOUS STRUCTURES: Severe degenerative changes of the bilateral hips. CT/CT abdomen pelvis w IV con IMPRESSION: 1. No acute findings identified in the abdomen/pelvis. Moderate to large volume of stool throughout the colon. 2. Cholelithiasis. 3. Coronary artery calcifications. Correlation with cardiac risk factors is recommended. Medications Administered Discontinued Medications Generic Name Dose Route Start Last Admin Trade Name Freq PRN Reason Stop Dose Admin Iohexol 85 ml 10/18/23 04:45 10/18/23 04:46 Iohexol 350 Mg/Ml 100 Ml Infus..Btl IV 10/18/23 04:46 85 ml ONCE ONE Administration Critical Care Time Critical Care Time Critical Care Time: Yes Total Critical Care Time: 60 Attestation: I have personally provided critical care time. Time includes review of lab data, radiology results, discussion with consultants, and monitoring for potential decompensation. Intervention performed as documented. Discharge Plan Discharge Clinical Impression: Abdominal pain Patient Disposition: Home, Self-Care Instructions: Abdominal Pain (ED) Additional Instructions: Please follow-up with your primary care physician tomorrow. If you have any worsening or new symptoms, please return to the emergency room or call 911 Prescriptions: No Action prednisone 5 mg tablet 1 tab PO DAILY ferrous sulfate 325 mg (65 mg iron) tablet 1 tab PO DAILY Rx Instructions: with breakfast hydroxychloroquine 200 mg tablet 1 tab PO DAILY sucralfate 1 gram tablet 1 g PO BID Qty: 60 0RF Rx Instructions: before breakfast and dinner pantoprazole 40 mg tablet,delayed release (DR/EC) 1 tab PO DAILY@0630 fluoxetine 40 mg capsule 1 cap PO DAILY gabapentin 300 mg capsule 300 mg PO BEDTIME furosemide 20 mg Tablet 20 mg PO DAILY Qty: 0 0RF Protocol: Hold for SBP< HOLD for SBP < : 90 Print Language: Marshallese
[2023-10-18] MEDS: iohexoL 350 MG/ML 100 ML INFUS..BTL 85 ML IV (04:46)
[2023-10-18 05:26] VITALS: BP 150/82; PULSE 63; RESP 17; TEMP 36.7; O2SAT 97
--- NOTE | 2023-10-18 06:12 | PC.NURSE ---
Attempted to call report to [facility] x5 times. Answering user stated she would transfer me and promptly hung up. Will attempt again.
--- NOTE | 2023-10-18 06:22 | PC.NURSE ---
Attempted to call facility once more. No answer at all this time. Ambulance transport booked per clinical unit coordinator.
--- NOTE | 2023-10-18 07:06 | PC.NURSE ---
Report to [place] crew. Pt back to [facility]
== END 2023-10-18 07:06 | disposition home or self-care (01) ==
PROVIDERS: Emergency Provider Emergency Medicine; PCP Family Medicine
DX: R10.11 Right upper quadrant pain (principal); M79.601 Pain in right arm; M25.561 Pain in right knee; Z79.899 Other long term (current) drug therapy
CPT/HCPCS: 36415; 74177; 80048; 80076; 83690; 84484; 85025; 93005; 99284; Q9967

== ENCOUNTER → 2023-10-18 02:50 | Outpatient (BNV) | payer OTHER, SELFPAY | PROVIDERS: Emergency Provider Emergency Medicine; PCP Family Medicine; Visit Provider Internal Medicine Cardiovascular Disease | DX: R10.9 Unspecified abdominal pain (principal) | CPT/HCPCS: 93010 ==